=== PATIENT | female | born 1955 | race Caucasian/White ===

== ENCOUNTER 2016-11-28 08:49 | Inpatient (IN) | payer MEDICARE, MEDICAID ==
[2016-11-28] MEDS ORDERED: ceFAZolin 2 GM in Premix Bag 1 BAG IV ONE (10:30)
[2016-11-28] MEDS ORDERED: ceFAZolin 2 GM in Sodium Chloride 0.9% 50 ML IV ONE (10:30)
[2016-11-28] MEDS: Sodium Chloride 0.9% 1,000 ML IV SCH ×2 (10:38→23:46)
[2016-11-28] MEDS ORDERED: Albuterol/Ipratropium 3.0-0.5 MG/3 ML Neb Soln NEB ONE (10:49)
[2016-11-28] MEDS ORDERED: Ondansetron 4 MG/2 ML SDV ONE (10:50)
[2016-11-28] MEDS ORDERED: Rocuronium 50 MG/5 ML Vial ONE (10:50)
[2016-11-28] MEDS ORDERED: Propofol 200 MG/20 ML SDV ONE (10:50)
[2016-11-28] MEDS ORDERED: fentaNYL 250 MCG/5 ML SDV ONE (10:50)
[2016-11-28] MEDS ORDERED: Succinylcholine/Normal Saline 200 MG/10 ML Syringe ONE (10:50)
[2016-11-28] MEDS ORDERED: Dexamethasone 4 MG/ML SDV ONE (10:50)
[2016-11-28] MEDS ORDERED: Neostigmine Methylsulfate 1 MG/ML 5 ML Syringe ONE (10:50)
[2016-11-28] MEDS ORDERED: Bacitracin Oint 1 GM U/D Packet ONE (10:52)
[2016-11-28] MEDS ORDERED: Lidocaine 1% with EPINEPHrine 1:100,000 50 ML MDV ONE (10:52)
[2016-11-28] MEDS ORDERED: Mineral Oil 10 ML Bottle ONE ×2 (10:52→11:44)
[2016-11-28] MEDS ORDERED: Enoxaparin 40 MG/0.4 ML Syringe SUBCUT ONE (11:00)
[2016-11-28] MEDS ORDERED: Lactated Ringers 1,000 ML ONE (12:19)
[2016-11-28] MEDS ORDERED: Bacitracin Oint 28.35 GM Tube TOP ONE (12:30)
[2016-11-28] MEDS ORDERED: diphenhydrAMINE 50 MG/ML SDV IVPUSH PRN (13:13)
[2016-11-28] MEDS ORDERED: Docusate Sodium 100 MG Cap PO PRN (13:13)
[2016-11-28] MEDS ORDERED: Polyethylene Glycol 3350 Powder 17 GM Packet PO PRN (13:13)
[2016-11-28] MEDS ORDERED: Bisacodyl 5 MG Tab PO PRN (13:13)
[2016-11-28] MEDS ORDERED: Benzocaine/Cetylpyridinium/Menthol Lozenge MUCMEM PRN (13:13)
[2016-11-28] MEDS ORDERED: Acetaminophen 650 MG Supp RECTAL PRN (13:13)
[2016-11-28] MEDS ORDERED: Acetaminophen/oxyCODONE 325-10 MG Tab PO PRN (13:13)
[2016-11-28] MEDS ORDERED: ZALEPLON PO PRN (13:19)
[2016-11-28] MEDS ORDERED: Albuterol/Ipratropium 3.0-0.5 MG/3 ML Neb Soln INH PRN (13:19)
[2016-11-28] MEDS ORDERED: Fluticasone Propionate Nasal Spray 16 GM Bottle NASBOTH PRN (13:19)
[2016-11-28] MEDS ORDERED: Enoxaparin 80 MG/0.8 ML Syringe SUBCUT SCH (13:30)
[2016-11-28] MEDS: Acetaminophen/HYDROcodone 325-5 MG Tab PO PRN ×2 (15:55→23:36)
[2016-11-28] MEDS: Rivaroxaban 10 MG Tab PO SCH (16:00)
[2016-11-28] MEDS: tiZANidine 4 MG Tab PO PRN (17:12)
[2016-11-28] MEDS ORDERED: LOVASTATIN PO SCH (21:00)
[2016-11-28] MEDS: Zolpidem 5 MG Tab PO PRN (21:51)
[2016-11-28] MEDS: ClonazePAM 1 MG Tab PO PRN (23:36)
[2016-11-29] MEDS: Pantoprazole 40 MG Tab.CR PO SCH (07:12)
[2016-11-29] MEDS: Acetaminophen/HYDROcodone 325-5 MG Tab PO PRN ×3 (07:28→23:06)
[2016-11-29] MEDS: Venlafaxine 75 MG Cap.ER PO SCH (08:38)
[2016-11-29] MEDS ORDERED: Magnesium Sulfate/Water 2 GM in Premix Bag 1 BAG IV ONE (09:30)
[2016-11-29] MEDS: ClonazePAM 1 MG Tab PO PRN ×2 (12:24→23:07)
[2016-11-29] MEDS: Rivaroxaban 10 MG Tab PO SCH (17:29)
[2016-11-29] MEDS ORDERED: Ondansetron 4 MG/2 ML SDV IVPUSH PRN (19:51)
[2016-11-29] MEDS ORDERED: Ondansetron 4 MG Tab.DIS PO PRN (19:51)
[2016-11-29] MEDS ORDERED: Scopolamine 1.5 MG Transdermal Patch TRDERM PRN (19:52)
[2016-11-29] MEDS ORDERED: ClonazePAM 1 MG Tab ONE (23:01)
[2016-11-29] MEDS ORDERED: Acetaminophen/HYDROcodone 325-5 MG Tab ONE (23:01)
[2016-11-29] MEDS ORDERED: Zolpidem 5 MG Tab ONE (23:01)
[2016-11-29] MEDS: Zolpidem 5 MG Tab PO PRN (23:06)
[2016-11-30] MEDS: Pantoprazole 40 MG Tab.CR PO SCH (09:05)
[2016-11-30] MEDS: Venlafaxine 75 MG Cap.ER PO SCH (09:06)
[2016-11-30] MEDS: VERIFY SCOPOLAMINE PATCH TOP SCH (09:08)
--- NOTE | 2016-11-30 11:02 | PN ---
DATE OF SERVICE: 11/29/2016 SUBJECTIVE: The patient is doing well. Pain is well controlled. No nausea, vomiting, shortness of breath, or chest pain. OBJECTIVE: VITAL SIGNS: Temperature 97.2, blood pressure 117/64, pulse 60, respirations 18, 94% on room air. CARDIOVASCULAR: Regular rhythm and rate. RESPIRATORY: Lungs are clear to auscultation bilaterally. ABDOMEN: Bowel sounds are positive. Dressings are intact. Some drainage from the donor site. ASSESSMENT AND PLAN: We will change her donor site dressing. Work on diet and activity. Jhonatan Keyes MD /[id number]
--- NOTE | 2016-11-30 11:05 | PN ---
DATE OF SERVICE: 11/30/2016 SUBJECTIVE: The patient is doing well. Pain is well controlled. No nausea, vomiting, shortness of breath, or chest pain. She remains afebrile. OBJECTIVE: VITAL SIGNS: Stable. Temperature 97.2, blood pressure 117/64, pulse 60, respirations 18, 94% on room air. CARDIOVASCULAR: Regular rhythm and rate. RESPIRATORY: Lungs are clear to consultation bilaterally. SKIN: Dressings are intact. ASSESSMENT: Status post split-thickness skin graft. PLAN: Continue same plan. No evidence of complication at this time. Jhonatan Keyes MD /[id number]
[2016-11-30] MEDS ORDERED: diphenhydrAMINE 50 MG/ML SDV ONE (16:16)
[2016-11-30] MEDS ORDERED: ClonazePAM 1 MG Tab ONE ×2 (16:17→23:46)
[2016-11-30] MEDS: ClonazePAM 1 MG Tab PO PRN ×2 (16:22→23:52)
[2016-11-30] MEDS: diphenhydrAMINE 25 MG Cap PO PRN ×3 (16:35→23:53)
[2016-11-30] MEDS: Rivaroxaban 10 MG Tab PO SCH (16:35)
[2016-11-30] MEDS ORDERED: Acetaminophen/HYDROcodone 325-5 MG Tab ONE (17:58)
[2016-11-30] MEDS: Acetaminophen/HYDROcodone 325-5 MG Tab PO PRN ×2 (18:01→23:53)
[2016-11-30] MEDS ORDERED: Zolpidem 5 MG Tab ONE (23:46)
[2016-11-30] MEDS ORDERED: tiZANidine 4 MG Tab ONE (23:50)
[2016-11-30] MEDS: Zolpidem 5 MG Tab PO PRN (23:53)
[2016-11-30] MEDS: tiZANidine 4 MG Tab PO PRN (23:53)
[2016-12-01] MEDS: Pantoprazole 40 MG Tab.CR PO SCH (07:22)
[2016-12-01] MEDS: Venlafaxine 75 MG Cap.ER PO SCH (10:22)
[2016-12-01] MEDS: diphenhydrAMINE 25 MG Cap PO PRN (10:22)
[2016-12-01] MEDS: Acetaminophen/HYDROcodone 325-5 MG Tab PO PRN ×3 (10:22→19:57)
[2016-12-01] MEDS: VERIFY SCOPOLAMINE PATCH TOP SCH (10:24)
--- NOTE | 2016-12-01 13:37 | PN ---
DATE OF SERVICE: 12/01/2016 SUBJECTIVE: The patient is doing well today. Pain is well controlled. No nausea, vomiting, shortness of breath, or chest pain. OBJECTIVE: VITAL SIGNS: Temperature 96.6, blood pressure 121/74, pulse 70, respirations 16. CARDIOVASCULAR: Regular rhythm and rate. RESPIRATORY: Lungs are clear to auscultation bilaterally. ABDOMEN: In donor site, dressings are intact. No bleeding or concern. ASSESSMENT: Status post split-thickness skin graft. PLAN: We will remove her donor site dressing today and allow this area dry "crossed out" and also wears that on diet and activity. No signs of infection. No evidence of fever. She has been afebrile for greater than 24 hours. Jhonatan Keyes MD /[id number]
[2016-12-01] MEDS: ClonazePAM 1 MG Tab PO PRN ×2 (15:52→23:09)
[2016-12-01] MEDS: Rivaroxaban 10 MG Tab PO SCH (17:01)
[2016-12-01] MEDS: Acetaminophen 325 MG Tab PO PRN (21:12)
[2016-12-01] MEDS: tiZANidine 4 MG Tab PO PRN (23:09)
[2016-12-01] MEDS: traZODone 50 MG Tab PO PRN (23:09)
[2016-12-01] MEDS: Zolpidem 5 MG Tab PO PRN (23:09)
[2016-12-02] MEDS: Pantoprazole 40 MG Tab.CR PO SCH (07:57)
--- NOTE | 2016-12-02 08:57 | PN ---
DATE OF SERVICE: 12/02/2016 SUBJECTIVE: The patient is doing well today. Pain is well controlled. No nausea, vomiting, shortness of breath, or chest pain. OBJECTIVE: VITAL SIGNS: Stable. She is afebrile. CARDIOVASCULAR: Regular rhythm and rate. RESPIRATORY: Lungs are clear to consultation bilaterally. SKIN: Dressings are intact. The donor site has dressing, is healing well. ASSESSMENT: Status post split-thickness skin graft. PLAN: I will possibly change the dressing tomorrow. Continue same plan. Jhonatan Keyes MD /[id number]
[2016-12-02] MEDS: Venlafaxine 75 MG Cap.ER PO SCH (09:37)
[2016-12-02] MEDS: VERIFY SCOPOLAMINE PATCH TOP SCH (09:38)
--- NOTE | 2016-12-02 13:12 | OR ---
DATE OF PROCEDURE: 11/29/2016 PROCEDURE: 1. Surgical preparation of graft site, abdomen (209 cm2, 56513, 78520 x 2). 2. Split-thickness skin graft, abdomen (209.3 cm, 67579, 73624, x2). FINDINGS: Abdominal wound without infection, consistent with requirement for skin grafting. ANESTHESIA: MAC/local. INDICATIONS: This is a 61-year-old female with chronic abdominal wound requiring split- thickness skin grafting. Risks, benefits, alternatives, and limitations, including, but not limited to infection, bleeding, and requirement for graft failure due to the patient's smoking were explained to the patient, who wished to proceed. PREOPERATIVE DIAGNOSIS: Chronic wound requiring skin graft. POSTOPERATIVE DIAGNOSIS: Chronic wound requiring skin graft. PROCEDURE IN DETAIL: The patient was placed in supine position. The dressings were removed. The donor site was inspected. There was no evidence of infection. This was debrided using combination of 15 blade in a curette through its entirety. Minimal bleeding was controlled by electrocautery. Of note, no evidence of infection, fissure formation, or other abnormalities. This was then thoroughly irrigated. The donor site would be left thigh. This would be performed using approximately 15,000 split-thickness skin graft using the dermatome. Skin was then harvested by applying the dermatome at a 45 degree angle and harvesting approximately 15 cm x the widest guard, which was approximately 4 cm The donor site was then treated with lidocaine with epinephrine. The skin was carefully placed on a wet carrier and then meshed in a 3-1 fashion. This orientation was kept correctly the entire time. The mesh was placed onto the defect itself and was sutured with a combination of 5-0 fast absorbing chromic gut sutures. There were approximately 30 of these. This was then overlaid with Adaptic, covered in bacitracin. ABDs, 4x4s, and West straps along with abdominal binder to keep mesh adhesion. The donor site would then be treated with nonadherent dressings. The patient tolerated the procedure well. Jhonatan Keyes MD /[id number] CC: Padmini Guerrero MD
[2016-12-02] MEDS: ClonazePAM 1 MG Tab PO PRN ×2 (13:26→22:36)
[2016-12-02] MEDS: Acetaminophen 325 MG Tab PO PRN (13:26)
[2016-12-02] MEDS: Acetaminophen/HYDROcodone 325-5 MG Tab PO PRN ×2 (15:56→20:35)
[2016-12-02] MEDS: Rivaroxaban 10 MG Tab PO SCH (18:04)
[2016-12-02] MEDS: diphenhydrAMINE 25 MG Cap PO PRN (20:35)
[2016-12-02] MEDS: Zolpidem 5 MG Tab PO PRN (22:36)
[2016-12-02] MEDS: tiZANidine 4 MG Tab PO PRN (22:36)
[2016-12-02] MEDS: traZODone 50 MG Tab PO PRN (22:36)
[2016-12-03] MEDS: Pantoprazole 40 MG Tab.CR PO SCH (07:36)
[2016-12-03] MEDS: Acetaminophen/HYDROcodone 325-5 MG Tab PO PRN ×3 (07:41→21:14)
[2016-12-03] MEDS ORDERED: Bacitracin Oint 28.35 GM Tube TOP ONE (09:15)
--- NOTE | 2016-12-03 09:22 | PCM.PN ---
- General Info Functional Status: Reports: pain controlled - Review of Systems General: Reports: No Symptoms HEENT: Reports: no symptoms Pulmonary: Reports: no symptoms Cardiovascular: Reports: No Symptoms Gastrointestinal: Reports: No symptoms Genitourinary: Reports: no symptoms Musculoskeletal: Reports: no symptoms Skin: Reports: no symptoms Neurological: Reports: No Symptoms Psychiatric: Reports: no symptoms - Patient Data Vitals - most recent: Last Vital Signs Temp 98 F 12/03/16 08:05 Pulse 100 12/03/16 08:05 Resp 12 12/03/16 08:05 BP 126/87 12/03/16 08:05 Pulse Ox 95 12/03/16 08:05 Weight - most recent: 77.111 kg I&O - last 24 hours: Intake & Output 12/02/16 12/03/16 12/03/16 22:59 06:59 14:59 Intake Total 240 480 Output Total 500 200 250 Balance -260 280 -250 Med Orders - Current: Current Medications Acetaminophen (Tylenol) 650 mg RECTAL Q6H PRN PRN Reason: Pain (mild 1-3) Acetaminophen (Tylenol) 650 mg PO Q4H PRN PRN Reason: Pain Last Admin: 12/02/16 13:26 Dose: 650 mg Acetaminophen/Hydrocodone Bitart ([place] 325-5 Mg) 1 - 2 tab PO Q4H PRN PRN Reason: PAIN Last Admin: 12/03/16 07:41 Dose: 2 tab Albuterol/Ipratropium (Duoneb 3.0-0.5 Mg/3 Ml) 3 ml INH Q6H PRN PRN Reason: Wheezing Benzocaine/Menthol (Cepacol Sore Throat) 1 lozenge MUCMEM Q1H PRN PRN Reason: Sore Throat Bisacodyl (Dulcolax) 5 mg PO DAILY PRN PRN Reason: Constipation Clonazepam (Klonopin) 1 mg PO TID PRN PRN Reason: Anxiety Last Admin: 12/02/16 22:36 Dose: 1 mg Diphenhydramine HCl (Benadryl) 25 - 50 mg PO Q4H PRN PRN Reason: Itching Last Admin: 12/02/16 20:35 Dose: 50 mg Docusate Sodium (Colace) 100 mg PO BID PRN PRN Reason: Constipation Fluticasone Propionate (Flonase) 0 gm NASBOTH DAILY PRN PRN Reason: Allergies Lovastatin (Mevacor) 80 mg PO BEDTIME [facility] Last Admin: 12/02/16 20:36 Dose: 80 mg Verify Scopolamine (Patch) 0 each TOP DAILY [facility] Last Admin: 12/02/16 09:38 Dose: Not Given Ondansetron HCl (Zofran) 4 mg IVPUSH Q4H PRN PRN Reason: Nausea/Vomiting Ondansetron HCl (Zofran Odt) 4 mg PO Q4H PRN PRN Reason: Nausea/Vomiting Last Admin: 11/29/16 20:15 Dose: 4 mg Pantoprazole Sodium (Protonix) 40 mg PO ACBREAKFAST [facility] Last Admin: 12/03/16 07:36 Dose: 40 mg Polyethylene Glycol (Miralax) 17 gm PO DAILY PRN PRN Reason: Constipation Rivaroxaban (Xarelto) 20 mg PO QPM [facility] Last Admin: 12/02/16 18:04 Dose: 20 mg Scopolamine (Transderm-Scop) 1.5 mg TRDERM Q72H PRN PRN Reason: Nausea Last Admin: 11/29/16 20:15 Dose: 1.5 mg Senna/Docusate Sodium (Senna Plus) 1 tab PO BID PRN PRN Reason: Constipation Last Admin: 12/03/16 07:44 Dose: 1 tab Tizanidine HCl (Zanaflex) 4 mg PO Q8H PRN PRN Reason: Muscle Spasm Last Admin: 12/02/16 22:36 Dose: 4 mg Trazodone HCl (Trazodone) 50 - 150 mg PO BEDTIME PRN PRN Reason: Insomnia Last Admin: 12/02/16 22:36 Dose: 100 mg Venlafaxine HCl (Effexor Xr) 75 mg PO DAILY [facility] Last Admin: 12/02/16 09:37 Dose: 75 mg Zolpidem Tartrate (Ambien) 5 mg PO BEDTIME PRN PRN Reason: Insomnia Last Admin: 12/02/16 22:36 Dose: 5 mg Discontinued Medications Acetaminophen/Hydrocodone Bitart ([place] 325-5 Mg) 1 - 2 tab PO Q4H PRN PRN Reason: Pain Last Admin: 11/30/16 18:01 Dose: 1 tab Acetaminophen/Hydrocodone Bitart ([place] 325-5 Mg) Confirm Administered Dose 1 tab .ROUTE .STK-MED ONE Stop: 11/29/16 23:02 Last Admin: 11/29/16 23:08 Dose: Not Given Acetaminophen/Hydrocodone Bitart ([place] 325-5 Mg) Confirm Administered Dose 1 tab .ROUTE .STK-MED ONE Stop: 11/30/16 17:59 Last Admin: 11/30/16 18:03 Dose: Not Given Albuterol/Ipratropium (Duoneb 3.0-0.5 Mg/3 Ml) 3 ml NEB ONETIME ONE Stop: 11/28/16 10:50 Last Admin: 11/28/16 10:59 Dose: 3 ml Bacitracin (Bacitracin Oint 1 Gm) Confirm Administered Dose 5 dose .ROUTE .STK- MED ONE Stop: 11/28/16 10:53 Last Admin: 11/28/16 12:19 Dose: 5 dose Bacitracin (Bacitracin Oint) 0 gm TOP ONETIME ONE Stop: 11/28/16 12:31 Last Admin: 11/28/16 21:00 Dose: Not Given Bacitracin (Bacitracin Oint) 0 gm TOP ONETIME ONE Stop: 12/03/16 09:16 Clonazepam (Klonopin) Confirm Administered Dose 1 mg .ROUTE .STK-MED ONE Stop: 11/29/16 23:02 Last Admin: 11/29/16 23:08 Dose: Not Given Clonazepam (Klonopin) Confirm Administered Dose 1 mg .ROUTE .STK-MED ONE Stop: 11/30/16 16:18 Last Admin: 11/30/16 16:23 Dose: Not Given Clonazepam (Klonopin) Confirm Administered Dose 1 mg .ROUTE .STK-MED ONE Stop: 11/30/16 23:47 Last Admin: 11/30/16 23:52 Dose: Not Given Dexamethasone (Dexamethasone) Confirm Administered Dose 4 mg .ROUTE .STK-MED ONE Stop: 11/28/16 10:51 Diphenhydramine HCl (Benadryl) 50 mg IVPUSH Q4H PRN PRN Reason: Itching Diphenhydramine HCl (Benadryl) Confirm Administered Dose 50 mg .ROUTE .STK-MED ONE Stop: 11/30/16 16:17 Last Admin: 11/30/16 16:23 Dose: Not Given Enoxaparin Sodium (Lovenox) 40 mg SUBCUT ONETIME ONE Stop: 11/28/16 11:01 Last Admin: 11/28/16 11:06 Dose: 40 mg Enoxaparin Sodium (Lovenox) 80 mg SUBCUT Q12HR [facility] Fentanyl (Sublimaze) Confirm Administered Dose 500 mcg .ROUTE .STK-MED ONE Stop: 11/28/16 10:51 Glycopyrrolate () Confirm Administered Dose 1 mg .ROUTE .STK-MED ONE Stop: 11/28/16 10:51 Sodium Chloride (Normal Saline) 1,000 mls @ 75 mls/hr IV ASDIRECTED DELANEY Last Admin: 11/28/16 23:46 Dose: 75 mls/hr Cefazolin Sodium 2 gm/ Sodium (Chloride) 50 mls @ 100 mls/hr IV ASDIRECTED ONE Stop: 11/28/16 10:59 Last Admin: 11/28/16 11:24 Dose: 100 mls/hr Lactated Ringer's (Ringers, Lactated) Confirm Administered Dose 1,000 mls @ as directed .ROUTE .STK-MED ONE Stop: 11/28/16 12:20 Magnesium Sulfate 2 gm/ Premix 50 mls @ 25 mls/hr IV ONETIME ONE Stop: 11/29/16 11:29 Last Admin: 11/29/16 11:06 Dose: 25 mls/hr Lidocaine/Epinephrine (Xylocaine 1% With Epinephrine 1:100,000) Confirm Administered Dose 50 ml .ROUTE .STK-MED ONE Stop: 11/28/16 10:53 Last Admin: 11/28/16 12:15 Dose: 40 ml Mineral Oil (Muri-Lube) Confirm Administered Dose 20 ml .ROUTE .STK-MED ONE Stop: 11/28/16 10:53 Last Admin: 11/28/16 11:31 Dose: 20 ml Mineral Oil (Muri-Lube) Confirm Administered Dose 20 ml .ROUTE .STK-MED ONE Stop: 11/28/16 11:45 Last Admin: 11/28/16 11:31 Dose: 20 ml Neostigmine Methylsulfate (Neostigmine) Confirm Administered Dose 5 mg .ROUTE .STK-MED ONE Stop: 11/28/16 10:51 Non-Formulary Medication (Zaleplon [Sonata]) 5 - 10 mg PO BEDTIME PRN PRN Reason: Sleep Ondansetron HCl (Zofran) Confirm Administered Dose 4 mg .ROUTE .STK-MED ONE Stop: 11/28/16 10:51 Oxycodone/Acetaminophen (Percocet 325-10 Mg) 2 tab PO Q4H PRN PRN Reason: Pain (moderate 4-6) Propofol (Diprivan 20 Ml) Confirm Administered Dose 200 mg .ROUTE .STK-MED ONE Stop: 11/28/16 10:51 Rocuronium [place] (Zemuron) Confirm Administered Dose 50 mg .ROUTE .STK-MED ONE Stop: 11/28/16 10:51 Succinylcholine Chloride (Succinylcholine In Ns Pf) Confirm Administered Dose 200 mg .ROUTE .STK-MED ONE Stop: 11/28/16 10:51 Tizanidine HCl (Zanaflex) Confirm Administered Dose 4 mg .ROUTE .STK-MED ONE Stop: 11/30/16 23:51 Last Admin: 11/30/16 23:54 Dose: Not Given Zolpidem Tartrate (Ambien) Confirm Administered Dose 5 mg .ROUTE .STK-MED ONE Stop: 11/29/16 23:02 Last Admin: 11/29/16 23:07 Dose: Not Given Zolpidem Tartrate (Ambien) Confirm Administered Dose 5 mg .ROUTE .STK-MED ONE Stop: 11/30/16 23:47 Last Admin: 11/30/16 23:52 Dose: Not Given - Exam General: alert, oriented HEENT: Pupils equal, Pupils reactive, EOMI, Mucous membr. moist/pink Neck: supple Lungs: Clear to auscultation, Normal respiratory effort Cardiovascular: Regular Rate, Regular Rhythm Abdomen: bowel sounds present, soft, no tenderness, no distension (Female) Exam: Normal external exam, Normal speculum exam, Normal bimanual exam Back Exam: normal inspection, full range of motion Extremities: no edema Skin: warm, dry, intact Wound/Incisions: healing well Neurological: no new focal deficit Psy/Mental Status: alert, normal affect, normal mood - Problem List Review Problem List Initiated/Reviewed/Updated: Yes - My Orders Last 24 Hours: My Active Orders 12/03/16 09:20 Communication Order [RC] BID - Plan Plan:: Your skin graft is extremely fragile. It is very important that the graft not be disturbed (jostled,bumped, moved, or forceful nose blowing) for three weeks. During the first three or four weeks,the graft is developing its own blood supply. The new blood vessels are tiny and very fragile. If the graft is injured from friction, strenuous exercise or activity, or from changes in thebloodstream caused by smoking, it may not survive. - Do not use an icepack on the skin graft since it is very fragile. You may use one on the donor site. -The bandage placed on the skin graft at the time of surgery should be kept dry and intact for 1 week. Do not change the bandage during this time. After one week, you will return for a dressing change and post-op check of the skin graft. - During the first week, you may bathe instead of showering so that the bandage remains dry. Skin graft wound care (after first dressing change): - After you have had your one week post-op check and dressing change of the skin graft, you willbegin changing the dressing at home once per day. First wash your hands with soap and water. Then remove the bandage and gently clean the graft with gauze or Q-tips that have been moistenedwith soap and water. Use gentle blotting motions and avoid rubbing or friction on the graft. Donot use hydrogen peroxide on the graft for the first two weeks after the surgery. Blot the wounddry with clean gauze or Q- tips. -Once clean, apply a generous amount of petroleum jelly (Vaseline) or Aquaphor healingointment to a Band-aid or non-stick dressing then place it gently on the graft. Add a square ofgauze if there is drainage or oozing. Gently secure the dressing with tape. Do not let the wounddry out and scab over. It must stay moist with ointment and a dressing. -Do not allow adhesive from the tape to come into contact with the graft. This may pull the graft off. - It is not unusual to be able to see crusting underneath your bandage. Do not be alarmed if the graft becomes dark, crusty, purplish, or pink in color. -You may start to use hydrogen peroxide to help clean the graft after the graft has been on for at least two weeks. Use hydrogen peroxide ONLY if there is adherent crusting that is difficult toremove with soap and water. Otherwise continue to just use soap and water. - You will continue wound care once daily keeping the skin graft covered until the wound iscompletely healed over. This can sometimes take up to 4-5 weeks. - During this time, you may shower normally as long as the skin graft site is kept dry, covered andaway from direct water pressure.
[2016-12-03] MEDS: VERIFY SCOPOLAMINE PATCH TOP SCH (10:27)
[2016-12-03] MEDS: Venlafaxine 75 MG Cap.ER PO SCH (10:35)
[2016-12-03] MEDS: ClonazePAM 1 MG Tab PO PRN ×2 (10:42→19:23)
[2016-12-03] MEDS: Rivaroxaban 10 MG Tab PO SCH (16:52)
[2016-12-03] MEDS: traZODone 50 MG Tab PO PRN (23:03)
[2016-12-03] MEDS: Zolpidem 5 MG Tab PO PRN (23:04)
[2016-12-03] MEDS: tiZANidine 4 MG Tab PO PRN (23:04)
--- NOTE | 2016-12-04 08:57 | PN ---
DATE OF SERVICE: 12/04/2016 SUBJECTIVE: The patient is doing very well. Pain is well controlled. No nausea, vomiting, shortness of breath, or chest pain. OBJECTIVE: VITAL SIGNS: Stable. CARDIOVASCULAR: Regular rhythm and rate. RESPIRATORY: Lungs clear to auscultation bilaterally. SKIN: Dressings/wounds are healing well. No signs of cellulitis or infection. ASSESSMENT: Status post split-thickness skin graft. PLAN: The patient will be discharged today. Please see discharge summary for further details. Jhonatan Keyes MD /[id number]
--- NOTE | 2016-12-04 09:00 | DISCH ---
DISCHARGE DIAGNOSIS: Status post split-thickness skin graft, abdomen. HOSPITAL COURSE: This is a pleasant 61-year-old female, who underwent an uneventful split- thickness skin graft. On postoperative day #5, her skin graft dressings were changed. This appeared to have about 95% take of her graft. She continues to do well. Prior to discharge, her pain is well controlled. She had no nausea, vomiting, shortness of breath, or chest pain. She was tolerating diet and having bowel movements. FOLLOWUP: Follow up with Surgery in 7 to 14 days. ACTIVITY: No lifting greater than 30 pounds for the next 30 days. DISCHARGE MEDICATIONS: Please see MAR, but include [address] for pain. Written dressing instructions were sent to the longterm with the patient.
[2016-12-04] MEDS: Pantoprazole 40 MG Tab.CR PO SCH (09:07)
[2016-12-04] MEDS: Venlafaxine 75 MG Cap.ER PO SCH (09:07)
[2016-12-04 10:30] VITALS: BP 132/86
[2016-12-04] MEDS: Acetaminophen/HYDROcodone 325-5 MG Tab PO PRN (13:45)
== END 2016-12-04 13:45 | DRG 605 ==
LOC: JP.SDS 08:49 → JP.MS 13:13
PROVIDERS: ADMIT Surgery; ATTEND Surgery
DX: S31.109A Unspecified open wound of abdominal wall, unspecified quadrant without penetration into peritoneal cavity, initial encounter (principal); X58.XXXA Exposure to other specified factors, initial encounter; H54.8 Legal blindness, as defined in USA; Z87.898 Personal history of other specified conditions; Z93.2 Ileostomy status; Z90.49 Acquired absence of other specified parts of digestive tract; J44.9 Chronic obstructive pulmonary disease, unspecified; F32.9 Major depressive disorder, single episode, unspecified; K21.9 Gastro-esophageal reflux disease without esophagitis; Z86.711 Personal history of pulmonary embolism; Z79.01 Long term (current) use of anticoagulants; Z87.891 Personal history of nicotine dependence; Z88.5 Allergy status to narcotic agent; Z91.013 Allergy to seafood
CPT/HCPCS: 15002; 15003; 15100; 15101; A9270; C1762; J0690; J1100; J1650; J2405; J2704; J3010; J7040; J7050; J7120; J7620; 36415; 80048; 85025; J3475

== ENCOUNTER 2017-01-31 12:35 | Emergency (ER) | payer MEDICARE, MEDICAID ==
--- NOTE | 2017-01-31 13:32 | EDM.PDOC ---
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 This morning she developed some upper back and shoulder pain, worse with breathing. She's been coughing was a small amount of productive sputum. Short of breath but nothing more than usual. No fevers or chills. Denies nausea or vomiting. No diaphoresis. Onset: Sudden Duration: Other (Pain has been ongoing for the past 2 hours, only when she takes a breath or moves) Location: Reports: Chest, Back Quality: Reports: Ache, Pressure Severity: Moderate Associated Symptoms: Reports: Chest Pain, Cough, Shortness of Breath. Denies: Diaphoresis, Fever/Chills, Nausea/Vomiting - Related Data Allergies Allergy/AdvReac Type Severity Reaction Status Date / Time shellfish derived Allergy Severe Anaphylactic Verified 11/28/16 10:55 Shock oxycodone HCl Allergy Hives Verified 11/26/16 08:06 [From OxyContin] Home Meds: Home Meds Lovastatin 80 tab PO BEDTIME 05/21/14 [History] Omeprazole 40 mg PO DAILY 10/28/14 [History] Venlafaxine [Effexor XR] 75 mg PO DAILY 06/26/15 [History] Fluticasone Propionate [Flonase] 2 spray NS DAILY PRN 03/06/16 [History] Zaleplon [Sonata] 5 - 10 mg PO BEDTIME PRN 03/06/16 [History] tiZANidine [Zanaflex] 4 mg PO Q8HR PRN 07/03/16 [History] traZODone 50 - 150 mg PO BEDTIME PRN 07/03/16 [History] ClonazePAM [KlonoPIN] 1 mg PO TID PRN 07/23/16 [History] Rivaroxaban [Xarelto] 20 mg PO DAILY 11/19/16 [History] Enoxaparin [Lovenox] 80 mg SQ Q12HR 11/28/16 [History] Ipratropium/Albuterol Sulfate [Combivent Respimat Inhal [place]] 2 puff INH Q6HR PRN 11/28/16 [History] Past Medical History HEENT History: Reports: Impaired Vision Other HEENT History: wears glasses Cardiovascular History: Reports: Blood Clots/VTE/DVT, High Cholesterol, Hypertension, SOB on Exertion, Syncope Respiratory History: Reports: COPD, PE, Pneumonia, Recurrent, SOB Gastrointestinal History: Reports: Chronic Diarrhea, Diverticulosis, GERD, Other (See Below) Other Gastrointestinal History: Diverticulitis, ischemic bowel; dysphagia Genitourinary History: Reports: None 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, Other OB/BYN History: hysterectomy and c-sections X3 Musculoskeletal History: Reports: Back Pain, Chronic, RA Other Musculoskeletal History: DJD Neurological History: Reports: Concussion, Migraines, Vertigo Psychiatric History: Reports: Anxiety, Depression Endocrine/Metabolic History: Reports: Vitamin D Deficiency Hematologic History: Reports: Anticoagulation Therapy, Other (See Below) Other Hematologic History: parasitic toxoplasmosis Immunologic History: Reports: Immunosuppression, Other (See Below) Other Immunologic History: " Not very good" Immune system Dermatologic History: Reports: Eczema, Seborrheic Dermatitis Other Dermatologic History: tattoos on both arms - Infectious Disease History Infectious Disease History: Reports: Chicken Pox, Hepatitis B, Measles, Rubella Other Infectious Disease History: unable to obtain - Past Surgical History HEENT Surgical History: Reports: Naso-Sinus Surgery GI Surgical History: Reports: Appendectomy, Cholecystectomy, Colon, Colonoscopy , Colostomy, EGD, Hernia, Abdominal, Other (See Below) Female Surgical History: Reports: Breast Biopsy, Section, Hysterectomy, Salpingo-Oophorectomy Musculoskeletal Surgical History: Reports: Shoulder Replacement Social & Family History - Family History Cardiac: Reports: Heart Failure Neurological: Reports: CVA Endocrine/Metabolic: Reports: Hypothyroidism Dermatologic: Reports: Eczema - Tobacco Use Smoking Status *Q: Former Smoker Years of Tobacco use: 30 Packs/Tins Daily: 0.2 Used Tobacco, but Quit: Yes Month Tobacco Last Used: 2015 Second Hand Smoke Exposure: No - Caffeine Use Caffeine Use: Reports: Coffee - Alcohol Use Days Per Week of Alcohol Use: 0 - Recreational Drug Use Recreational Drug Use: No Drug Use in Last 12 Months: No ED ROS GENERAL - Review of Systems Review Of Systems: See Below Constitutional: Denies: Fever, Chills, Malaise HEENT: Reports: No Symptoms Respiratory: Reports: Shortness of Breath, Cough, Sputum Cardiovascular: Reports: Chest Pain GI/Abdominal: Denies: Abdominal Pain, Nausea, Vomiting Musculoskeletal: Reports: No Symptoms Skin: Reports: Other (Bilateral shoulder and back discomfort) Neurological: Denies: Headache Psychiatric: Reports: Anxiety, Other (Under significant stress right now) ED EXAM, GENERAL - Physical Exam Exam: See Below Exam Limited By: No Limitations General Appearance: Alert, Anxious Eye Exam: Bilateral Eye: EOMI Neck: Normal Inspection Respiratory/Chest: No Respiratory Distress, Lungs Clear, Other (Pain could not be reproduced by palpation of chest wall) Cardiovascular: Regular Rate, Rhythm GI/Abdominal: Normal Bowel Sounds, Soft, Tender (She is tender around her recent skin graft in the mid abdomen, there is a colostomy bag in the right lower quadrant) Neurological: Alert, Oriented Skin Exam: Warm, Dry Course - Vital Signs Last Recorded V/S: Last Vital Signs Temp 97.4 F 01/31/17 15:47 Pulse 85 01/31/17 15:47 Resp 14 01/31/17 15:47 BP 136/87 01/31/17 15:47 Pulse Ox 96 01/31/17 15:47 - Orders/Labs/Meds Orders: Active Orders 24 hr Category Date Time Status EKG Documentation Completion [RC] ASDIRECTED Care 01/31/17 13:08 Active EKG 12 Lead [EK] Routine Ther 01/31/17 13:07 Ordered Labs: Laboratory Tests 01/31/17 01/31/17 01/31/17 Range/Units 13:21 13:21 14:01 WBC 9.6 (4.5-11.0) K/uL RBC 4.30 (3.30-5.50) M/uL Hgb 10.6 L (12.0-15.0) g/dL Hct 33.1 L (36.0-48.0) % MCV 77 L (80-98) fL MCH 25 L (27-31) pg MCHC 32 (32-36) % Plt Count 512 H (150-400) K/uL Neut % (Auto) 66 (36-66) % Lymph % (Auto) 27 (24-44) % [place] % (Auto) 5 (2-6) % Eos % (Auto) 2 (2-4) % Baso % (Auto) 1 (0-1) % Sodium 139 L (140-148) mmol/L Potassium 4.2 (3.6-5.2) mmol/L Chloride 105 (100-108) mmol/L Carbon Dioxide 22 (21-32) mmol/L Anion Gap 16.2 H (5.0-14.0) mmol/L BUN 9 (7-18) mg/dL Creatinine 0.8 (0.6-1.0) mg/dL Est Cr Clr Drug Dosing TNP Estimated GFR (MDRD) > 60 (>60) Glucose 106 (74-106) mg/dL Calcium 8.7 (8.5-10.1) mg/dL Total Bilirubin 0.2 (0.2-1.0) mg/dL AST 19 (15-37) U/L ALT 18 (12-78) U/L Alkaline Phosphatase 170 H (46-116) U/L Troponin I < 0.017 (0.000-0.056) ng/mL Total Protein 7.0 (6.4-8.2) g/dL Albumin 3.2 L (3.4-5.0) g/dL Globulin 3.8 H (2.3-3.5) g/dL Albumin/Globulin Ratio 0.8 L (1.2-2.2) Urine Color Yellow Urine Appearance Clear Urine pH 7.0 (4.5-8.0) Ur Specific [place] 1.010 (1.008-1.030) Urine Protein Negative (NEGATIVE) mg/dL Urine Glucose (UA) Normal (NEGATIVE) mg/dL Urine Ketones Negative (NEGATIVE) mg/dL Urine Occult Blood Negative (NEGATIVE) Urine Nitrite Negative (NEGATIVE) Urine Bilirubin Negative (NEGATIVE) Urine Urobilinogen Normal (NORMAL) mg/dL Ur Leukocyte Esterase Negative (NEGATIVE) Urine RBC Not seen (0-5) Urine WBC 0-5 (0-5) Ur Epithelial Cells Rare Amorphous Sediment Not seen Urine Bacteria Not seen Urine Mucus Not seen Meds: Medications Discontinued Medications Generic Name Dose Route Start Last Admin Trade Name Freq PRN Reason Stop Dose Admin Aspirin 324 mg 01/31/17 15:54 01/31/17 12:42 Aspirin PO 01/31/17 15:55 324 mg ONETIME ONE Administration - Re-Assessments/Exams Free Text/Narrative Re-Assessment/Exam: 01/31/17 13:35 Initially 4 low dose aspirin were given and an EKG was done. EKG was normal. One view chest x-ray was normal. CBC, CMP, troponin were obtained as well as a UA. 01/31/17 13:37 CBC shows a normal white count and improving hemoglobin from levels 2 months ago. 01/31/17 14:42 Chemistry profile including troponin was also reassuring, troponin was 0. Patient was encouraged to take anti-inflammatories for the next 24-48 hours to cover likely pleurisy or musculoskeletal discomfort. She can return if worsening. Departure - Departure Time of Disposition: 15:51 Disposition: Home, Self-Care 01 Condition: good Clinical Impression: Pleurisy, Atypical chest pain - Discharge Information Instructions: Nonspecific Chest Pain, Mild-ca-Gqqb Referrals: PCP,None [Primary Care Provider] - Forms: ED Department Discharge Care Plan Goals: Try a regular dose of ibuprofen or naproxen for the next 48 hours. Continue your other regular medications and increase activity as tolerated. Return any time if worsening or concerns. - My Orders Last 24 Hours: My Active Orders 01/31/17 13:07 EKG 12 Lead [EK] Routine 01/31/17 13:08 EKG Documentation Completion [RC] ASDIRECTED - Assessment/Plan Last 24 Hours: My Active Orders 01/31/17 13:07 EKG 12 Lead [EK] Routine 01/31/17 13:08 EKG Documentation Completion [RC] ASDIRECTED
--- NOTE | 2017-01-31 14:06 | CR ---
Chest 1V Frontal HISTORY: short of breath, chest pain COMPARISON: 10/18/2015 FINDINGS: Lungs appear clear and normally aerated. Cardiomediastinal silhouette is within normal limits for th e AP technique. No vascular redistribution or pleural fluid can be seen. Reverse left shoulder arthr oplasty is redemonstrated.. IMPRESSION: No acute chest abnormality or significant interval change compared with 10/18/2015.
[2017-01-31 15:50] VITALS: BP 136/87
[2017-01-31] MEDS ORDERED: Aspirin 81 MG Tab.Chew PO ONE (15:54)
== END 2017-01-31 15:51 | disposition home or self-care (01) ==
LOC: JP.ED 12:35
DX: R09.1 Pleurisy (principal); R07.89 Other chest pain; E78.00 Pure hypercholesterolemia, unspecified; I10 Essential (primary) hypertension; J44.9 Chronic obstructive pulmonary disease, unspecified; K21.9 Gastro-esophageal reflux disease without esophagitis; F41.9 Anxiety disorder, unspecified; F32.9 Major depressive disorder, single episode, unspecified; G43.909 Migraine, unspecified, not intractable, without status migrainosus; Z87.01 Personal history of pneumonia (recurrent); Z88.5 Allergy status to narcotic agent; Z91.013 Allergy to seafood; Z79.899 Other long term (current) drug therapy; Z79.01 Long term (current) use of anticoagulants; Z90.49 Acquired absence of other specified parts of digestive tract; Z90.710 Acquired absence of both cervix and uterus; Z87.891 Personal history of nicotine dependence
CPT/HCPCS: 36415; 71010; 80053; 81001; 84484; 85025; 93005; 99285; A9270; 93010; 99284

== ENCOUNTER 2017-05-20 13:05 | Emergency (ER) | payer MEDICARE, MEDICAID ==
[2017-05-20] MEDS ORDERED: Aspirin 81 MG Tab.Chew PO ONE (14:19)
--- NOTE | 2017-05-20 14:21 | EDM.PDOC ---
ED HPI GENERAL MEDICAL PROBLEM - General Chief Complaint: Cardiovascular Problem Stated Complaint: HIGH BP 252/135, HEART RATE 124 Time Seen by Provider: 05/20/17 14:04 Source of Information: Reports: Patient, Family, RN Notes Reviewed History Limitations: Reports: No Limitations - History of Present Illness INITIAL COMMENTS - FREE TEXT/NARRATIVE: 61-year-old female presents emergency department today with complaint of chest pain and elevated blood pressures, she is using a wrist monitor systolic blood pressure of 255 diastolic 155 she states she's having chest pain and pressure with shortness of breath diaphoresis no nausea it has been going on for the last couple of hours. She also complains of palpitations and dizziness Bilateral Chest Pain Score (Numeric/FACES): 6 - Related Data Allergies Allergy/AdvReac Type Severity Reaction Status Date / Time shellfish derived Allergy Severe Anaphylactic Verified 11/28/16 10:55 Shock oxycodone HCl Allergy Hives Verified 11/26/16 08:06 [From OxyContin] Home Meds: Home Meds Lovastatin 80 tab PO BEDTIME 05/21/14 [History] Omeprazole 40 mg PO DAILY 10/28/14 [History] Venlafaxine [Effexor XR] 75 mg PO DAILY 06/26/15 [History] Fluticasone Propionate [Flonase] 2 spray NS DAILY PRN 03/06/16 [History] traZODone 100 mg PO BEDTIME PRN 07/03/16 [History] ClonazePAM [KlonoPIN] 1 mg PO TID PRN 07/23/16 [History] Rivaroxaban [Xarelto] 20 mg PO DAILY 11/19/16 [History] Ipratropium/Albuterol Sulfate [Combivent Respimat Inhal [place]] 2 puff INH Q6HR PRN 11/28/16 [History] Baclofen 10 mg PO TID 05/20/17 [History] Ferrous Sulfate 325 mg PO BID 05/20/17 [History] Midodrine 10 mg PO TID 05/20/17 [History] Zolpidem [Ambien] 5 mg PO BEDTIME 05/20/17 [History] Past Medical History HEENT History: Reports: Impaired Vision Other HEENT History: wears glasses Cardiovascular History: Reports: Blood Clots/VTE/DVT, High Cholesterol, Hypertension, SOB on Exertion, Syncope Respiratory History: Reports: COPD, PE, Pneumonia, Recurrent, SOB Gastrointestinal History: Reports: Chronic Diarrhea, Diverticulosis, GERD, Other (See Below) Other Gastrointestinal History: Diverticulitis, ischemic bowel; dysphagia 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, Other OB/BYN History: hysterectomy and c-sections X3 Musculoskeletal History: Reports: Back Pain, Chronic, RA Other Musculoskeletal History: DJD Neurological History: Reports: Concussion, Migraines, Vertigo Psychiatric History: Reports: Anxiety, Depression Endocrine/Metabolic History: Reports: Vitamin D Deficiency Hematologic History: Reports: Anticoagulation Therapy, Other (See Below) Other Hematologic History: parasitic toxoplasmosis Immunologic History: Reports: Immunosuppression, Other (See Below) Other Immunologic History: " Not very good" Immune system Dermatologic History: Reports: Eczema, Seborrheic Dermatitis Other Dermatologic History: tattoos on both arms - Infectious Disease History Infectious Disease History: Reports: Chicken Pox, Hepatitis B, Measles, Rubella Other Infectious Disease History: unable to obtain - Past Surgical History HEENT Surgical History: Reports: Naso-Sinus Surgery GI Surgical History: Reports: Appendectomy, Cholecystectomy, Colon, Colonoscopy , Colostomy, EGD, Hernia, Abdominal, Other (See Below) Female Surgical History: Reports: Breast Biopsy, Section, Hysterectomy, Salpingo-Oophorectomy Musculoskeletal Surgical History: Reports: Shoulder Replacement Social & Family History - Family History Cardiac: Reports: Heart Failure Neurological: Reports: CVA Endocrine/Metabolic: Reports: Hypothyroidism Dermatologic: Reports: Eczema - Tobacco Use Smoking Status *Q: Never Smoker Years of Tobacco use: 30 Packs/Tins Daily: 0.2 Used Tobacco, but Quit: Yes Month Tobacco Last Used: 2015 Second Hand Smoke Exposure: No - Caffeine Use Caffeine Use: Reports: Coffee - Alcohol Use Days Per Week of Alcohol Use: 0 - Recreational Drug Use Recreational Drug Use: No Drug Use in Last 12 Months: No ED ROS GENERAL - Review of Systems Review Of Systems: See Below Constitutional: Reports: Diaphoresis HEENT: Reports: No Symptoms Respiratory: Reports: Shortness of Breath Cardiovascular: Reports: Chest Pain, Dyspnea on Exertion, Palpitations GI/Abdominal: Reports: No Symptoms : Reports: No Symptoms Musculoskeletal: Reports: No Symptoms Skin: Reports: No Symptoms Neurological: Reports: Dizziness ED EXAM, GENERAL - Physical Exam Exam: See Below Free Text/Narrative:: General: Female, not in any distress, alert and oriented x3 HEENT: head is atraumatic normocephalic, eyes pupils equal round reactive to light, sclera clear no conjunctivitis appreciated. Ears tympanic membranes clear and maoyrga landmarks and light reflex are present bilaterally canals are clear. Nose no septal deviation, nares are clear, no blood present. Mouth mucosa is moist and pink no erythema or exudate noted in soft palate, tongue is midline uvula is midline, dentition is intact. Neck: Supple no thyromegaly no tracheal deviation. Nodes: Cervical nodes subclavicular nodes nontender no palpable lymphadenopathy noted. Lungs: clear to auscultation bilaterally with symmetrical respirations, no adventitious noise appreciated. CV: Regular rate and rhythm S1 and S2 appreciated no murmurs rubs or gallops noted. Abdomen: Soft, nontender, no palpable masses or organomegaly appreciated, no distention no guarding bowel sounds are present, . Neuro: Cranial nerves II through XII grossly intact Skin: Warm and dry, intact Extremities: No lower extremity edema appreciated, pedal pulse is +2. Course - Vital Signs Last Recorded V/S: Last Vital Signs Temp 95.7 F 05/20/17 13:39 Pulse 83 05/20/17 16:42 Resp 16 05/20/17 16:42 BP 108/63 05/20/17 16:42 Pulse Ox 99 05/20/17 16:42 - Orders/Labs/Meds Orders: Active Orders 24 hr Category Date Time Status Cardiac Monitoring [RC] .As Directed Care 05/20/17 14:19 Active EKG Documentation Completion [RC] ASDIRECTED Care 05/20/17 14:20 Active EKG 12 Lead [EK] Stat Ther 05/20/17 14:20 Ordered Labs: Laboratory Tests 05/20/17 05/20/17 05/20/17 Range/Units 14:19 14:19 15:13 WBC 10.6 (4.5-11.0) K/uL RBC 4.62 (3.30-5.50) M/uL Hgb 12.8 D (12.0-15.0) g/dL Hct 38.1 (36.0-48.0) % MCV 83 (80-98) fL MCH 28 (27-31) pg MCHC 34 (32-36) % Plt Count 353 (150-400) K/uL Neut % (Auto) 68 H (36-66) % Lymph % (Auto) 22 L (24-44) % [place] % (Auto) 5 (2-6) % Eos % (Auto) 3 (2-4) % Baso % (Auto) 2 H (0-1) % Sodium 140 (140-148) mmol/L Potassium 4.2 (3.6-5.2) mmol/L Chloride 104 (100-108) mmol/L Carbon Dioxide 27 (21-32) mmol/L Anion Gap 8.9 (5.0-14.0) mmol/L BUN 12 (7-18) mg/dL Creatinine 1.0 (0.6-1.0) mg/dL Est Cr Clr Drug Dosing 53.83 mL/min Estimated GFR (MDRD) 57 L (>60) BUN/Creatinine Ratio Not Reportable Glucose 134 H (74-106) mg/dL Calcium 9.2 (8.5-10.1) mg/dL Total Bilirubin 0.2 (0.2-1.0) mg/dL AST 18 (15-37) U/L ALT 29 (12-78) U/L Alkaline Phosphatase 145 H (46-116) U/L CK-MB (CK-2) 2.1 (0-3.6) mg/mL Troponin I < 0.017 (0.000-0.056) ng/mL Total Protein 6.8 (6.4-8.2) g/dL Albumin 3.0 L (3.4-5.0) g/dL Globulin 3.8 H (2.3-3.5) g/dL Albumin/Globulin Ratio 0.8 L (1.2-2.2) Urine Color Yellow Urine Appearance Clear Urine pH 6.5 (4.5-8.0) Ur Specific [place] 1.015 (1.008-1.030) Urine Protein Negative (NEGATIVE) mg/dL Urine Glucose (UA) Normal (NEGATIVE) mg/dL Urine Ketones Negative (NEGATIVE) mg/dL Urine Occult Blood Negative (NEGATIVE) Urine Nitrite Negative (NEGATIVE) Urine Bilirubin Negative (NEGATIVE) Urine Urobilinogen Normal (NORMAL) mg/dL Ur Leukocyte Esterase Negative (NEGATIVE) Urine RBC 0-5 (0-5) Urine WBC 0-5 (0-5) Ur Epithelial Cells Few Amorphous Sediment Few Urine Bacteria Rare Urine Mucus Few Meds: Medications Discontinued Medications Generic Name Dose Route Start Last Admin Trade Name Gely PRN Reason Stop Dose Admin Acetaminophen 650 mg 05/20/17 15:34 05/20/17 15:47 Tylenol PO 05/20/17 15:35 650 mg NOW ONE Administration Aspirin 324 mg 05/20/17 14:19 05/20/17 14:29 Aspirin PO 05/20/17 14:20 324 mg ONETIME ONE Administration Lorazepam 1 mg 05/20/17 16:32 05/20/17 16:40 Ativan PO 05/20/17 16:33 1 mg ONETIME ONE Administration Meclizine HCl 25 mg 05/20/17 15:49 05/20/17 15:58 Antivert PO 05/20/17 15:50 25 mg ONETIME ONE Administration Departure - Departure Time of Disposition: 17:18 Disposition: Home, Self-Care 01 Condition: Good Clinical Impression: Labile hypertension Referrals: Yue Plaacios MD [Primary Care Provider] - Forms: ED Department Discharge Additional Instructions: Use Ativan as needed to help control dizziness symptoms, Please followup with your primary care provider in 3-5 days if not better, please call return to the emergency department with worsening of symptoms. - My Orders Last 24 Hours: My Active Orders 05/20/17 14:19 Cardiac Monitoring [RC] .As Directed 05/20/17 14:20 EKG Documentation Completion [RC] ASDIRECTED EKG 12 Lead [EK] Stat - Assessment/Plan Last 24 Hours: My Active Orders 05/20/17 14:19 Cardiac Monitoring [RC] .As Directed 05/20/17 14:20 EKG Documentation Completion [RC] ASDIRECTED EKG 12 Lead [EK] Stat Plan: Assessment Acuity = acute Site and laterality = fluctuating blood pressure, diaphoresis and headache Etiology = unclear etiology Manifestations = none Location of injury = Home Lab values = CBC, CMP, troponin, EKG, chest x-ray all within normal limits Plan I did review lab work with her chest x-ray and EKG talked to her about further evaluation for such things as a pheochromocytoma which I recommend she follow- up with her primary care, also complained of dizziness she had good relief with Ativan provided prescription written for 1 tab by mouth 3 times a day when necessary Patient was in agreement with the plan all questions were answered, they were instructed to return to the emergency department or call for worsening symptoms. This note was dictated using [employer] voice recognition software please call with any questions.
--- NOTE | 2017-05-20 14:50 | CR ---
Chest 2V HISTORY: Pain. COMPARISON: 01/29/2017. FINDINGS: Slightly rotated film. No focal infiltrates or effusions no acute congestive change.
[2017-05-20] MEDS ORDERED: Acetaminophen 325 MG Tab PO ONE (15:34)
[2017-05-20] MEDS ORDERED: Meclizine 25 MG Tab PO ONE (15:49)
[2017-05-20] MEDS ORDERED: LORazepam 1 MG Tab PO ONE (16:32)
[2017-05-20 16:42] VITALS: BP 108/63
== END 2017-05-20 17:56 | disposition home or self-care (01) ==
LOC: JP.ED 13:05
DX: I10 Essential (primary) hypertension (principal); R61 Generalized hyperhidrosis; R51 Headache; E03.9 Hypothyroidism, unspecified; E78.00 Pure hypercholesterolemia, unspecified; J44.9 Chronic obstructive pulmonary disease, unspecified; K21.9 Gastro-esophageal reflux disease without esophagitis; M06.9 Rheumatoid arthritis, unspecified; Z86.711 Personal history of pulmonary embolism; Z86.718 Personal history of other venous thrombosis and embolism; Z90.49 Acquired absence of other specified parts of digestive tract; Z90.710 Acquired absence of both cervix and uterus; Z90.721 Acquired absence of ovaries, unilateral; Z96.619 Presence of unspecified artificial shoulder joint; Z98.890 Other specified postprocedural states; Z79.899 Other long term (current) drug therapy; Z88.5 Allergy status to narcotic agent; Z91.013 Allergy to seafood
CPT/HCPCS: 36415; 71020; 80053; 81001; 82553; 84484; 85025; 93005; 99284; A9270; 93010

== ENCOUNTER 2017-07-17 07:30 | Inpatient (IN) | payer MEDICARE, MEDICAID ==
[2017-07-25] MEDS ORDERED: ceFAZolin 2 GM in Sodium Chloride 0.9% 50 ML IV ONE (07:00)
[2017-07-25] MEDS ORDERED: ceFAZolin 2 GM in Premix Bag 1 BAG IV ONE (07:00)
[2017-07-25] MEDS ORDERED: metroNIDAZOLE/Normal Saline 500 MG in Premix Bag 1 BAG IV ONE (07:00)
[2017-07-25] MEDS: Sodium Chloride 0.9% 1,000 ML IV SCH ×2 (07:04→14:41)
[2017-07-25] MEDS ORDERED: fentaNYL 250 MCG/5 ML SDV ONE (07:17)
[2017-07-25] MEDS ORDERED: Rocuronium 50 MG/5 ML Vial ONE (07:17)
[2017-07-25] MEDS ORDERED: Dexamethasone 4 MG/ML SDV ONE (07:17)
[2017-07-25] MEDS ORDERED: Propofol 200 MG/20 ML SDV ONE (07:17)
[2017-07-25] MEDS ORDERED: Neostigmine Methylsulfate 1 MG/ML 5 ML Syringe ONE (07:17)
[2017-07-25] MEDS ORDERED: Succinylcholine 200 MG/10 ML MDV ONE (07:17)
[2017-07-25] MEDS ORDERED: Ondansetron 4 MG/2 ML SDV ONE (07:17)
[2017-07-25] MEDS ORDERED: Glycopyrrolate 0.2 MG/ML 5 ML MDV ONE (07:17)
[2017-07-25] MEDS ORDERED: Naloxone 0.4 MG/ML SDV IVPUSH PRN (08:16)
[2017-07-25] MEDS ORDERED: Lactated Ringers 1,000 ML ONE (09:54)
[2017-07-25] MEDS ORDERED: Meropenem 500 MG SDV ONE (11:04)
[2017-07-25] MEDS ORDERED: Promethazine 25 MG/ML SDV IM PRN (12:30)
[2017-07-25] MEDS ORDERED: Bisacodyl 5 MG Tab PO PRN (12:30)
[2017-07-25] MEDS ORDERED: hydrOXYzine HCl 100 MG/2 ML SDV IM PRN (12:30)
[2017-07-25] MEDS ORDERED: diphenhydrAMINE 50 MG/ML SDV IVPUSH PRN ×3 (12:30→14:53)
[2017-07-25] MEDS ORDERED: Benzocaine/Cetylpyridinium/Menthol Lozenge MUCMEM PRN (12:30)
[2017-07-25] MEDS ORDERED: Docusate Sodium 100 MG Cap PO PRN (12:30)
[2017-07-25] MEDS ORDERED: Acetaminophen 1,000 MG in Premix Bag 1 BAG IV PRN (12:30)
[2017-07-25] MEDS ORDERED: Scopolamine 1.5 MG Transdermal Patch TOP SCH (12:45)
[2017-07-25] MEDS ORDERED: Naloxone 0.4 MG/ML SDV IV PRN (14:53)
[2017-07-25] MEDS: fentaNYL 2,500 MCG in Sodium Chloride 0.9% 200 ML EPIDUR SCH (14:56)
[2017-07-25] MEDS: VERIFY SCOP PATCH TOP SCH (16:37)
[2017-07-26] MEDS: fentaNYL 2,500 MCG in Sodium Chloride 0.9% 200 ML EPIDUR SCH (04:05)
[2017-07-26] MEDS: Sodium Chloride 0.9% 1,000 ML IV SCH ×2 (04:43→17:24)
[2017-07-26] MEDS ORDERED: Fluticasone Propionate Nasal Spray 16 GM Bottle NASBOTH PRN (09:32)
[2017-07-26] MEDS ORDERED: Diazepam 5 MG Tab PO PRN (09:32)
[2017-07-26] MEDS ORDERED: tiZANidine 4 MG Tab PO PRN (09:32)
[2017-07-26] MEDS ORDERED: traZODone 50 MG Tab PO PRN (09:32)
[2017-07-26] MEDS ORDERED: Albuterol/Ipratropium 3.0-0.5 MG/3 ML Neb Soln NEB PRN ×2 (09:32→19:36)
[2017-07-26] MEDS ORDERED: Aspirin 81 MG Tab.EC PO SCH (10:00)
[2017-07-26] MEDS ORDERED: DULoxetine 30 MG Cap PO SCH (10:00)
[2017-07-26] MEDS ORDERED: Pantoprazole 40 MG Tab.CR PO SCH (10:00)
[2017-07-26] MEDS ORDERED: Fludrocortisone 0.1 MG Tab PO SCH (10:00)
[2017-07-26] MEDS ORDERED: Bisacodyl 5 MG Tab PO SCH (10:30)
[2017-07-26] MEDS: VERIFY SCOP PATCH TOP SCH (10:50)
--- NOTE | 2017-07-26 10:59 | PN ---
DATE OF SERVICE: 07/26/2017 SUBJECTIVE: The patient is doing well. Pain is controlled with an epidural. She is mildly somnolent with this. The patient is also complaining of some itching. No nausea, vomiting, shortness of breath, or chest pain. OBJECTIVE: VITAL SIGNS: Stable. Temperature 99.3, blood pressure 121/64, pulse is reported to be 120, but on exam is 89, respirations 16, 94% on 2 L. CARDIOVASCULAR: Regular rhythm and rate. RESPIRATORY: Lungs clear to consultation bilaterally. ABDOMEN: The skin graft site shows viability. However, there is a dusky tone to this and need to be observed. LABORATORY RESULTS: Show a fairly normal results. ASSESSMENT AND PLAN: 1. Gastrointestinal activity. The patient is not passing any gas. We will keep her on clear liquids today. She is a fast track surgical candidate. However, this will require an extensive lysis of adhesions and abdominal surgery. Therefore, we will continue to advance her slow but try to keep as close to the fast track protocol as possible. 2. Hematology. Her hemoglobin is 13.2. She is not having active bleeding at this time and we will recheck this on a p.r.n. basis. 3. Infectious control. She is afebrile, however, white blood cell count is elevated which is typical in postoperative course. She is not on any antibiotics per standard protocol at this time. 4. Respiratory status. The patient has been instructed in using incentive spirometry. In conjunction with this, we will continue aggressive ambulation. 5. Prophylaxis. She is on SCDs, early ambulation. 6. In discussion with the hospitalist service and in conjunction with Cardiology and the preoperative discussion, we will discontinue epidural today. We will switch her to a RUBBER CHEMIST and we will start her Lovenox in 12 hours. The patient will not be started on Xarelto initially as we are worried about the bioavailability with respect to a potential although none seen at this point, ileus and then she will go back on the Xarelto once we see GI activity. Jhonatan Keyes MD /[id number]
[2017-07-26] MEDS ORDERED: Midodrine 5 MG Tab PO SCH (14:00)
[2017-07-26] MEDS: Ondansetron 4 MG/2 ML SDV IVPUSH PRN (15:10)
[2017-07-26] MEDS: Metoprolol Tartrate 5 MG/5 ML SDV IVPUSH PRN ×3 (17:15→22:10)
[2017-07-26] MEDS ORDERED: Labetalol 20 MG/4 ML Syringe ONE (19:47)
[2017-07-26] MEDS ORDERED: Metoprolol Tartrate 5 MG/5 ML SDV ONE ×2 (20:02→22:00)
[2017-07-26] MEDS: Acetaminophen 1,000 MG in Premix Bag 1 BAG IV PRN (20:17)
[2017-07-26] MEDS ORDERED: Zolpidem 5 MG Tab PO SCH (21:00)
[2017-07-26] MEDS ORDERED: Docusate Sodium 100 MG Cap PO SCH (21:00)
[2017-07-26] MEDS: Enoxaparin 40 MG/0.4 ML Syringe SUBCUT SCH (21:31)
[2017-07-27] MEDS: Sodium Chloride 0.9% 1,000 ML IV SCH (01:24)
[2017-07-27] MEDS ORDERED: Metoprolol Tartrate 5 MG/5 ML SDV ONE (02:29)
[2017-07-27] MEDS: Metoprolol Tartrate 5 MG/5 ML SDV IVPUSH PRN (02:31)
[2017-07-27] MEDS ORDERED: Ondansetron 4 MG/2 ML SDV ONE ×3 (03:47→19:53)
[2017-07-27] MEDS: Ondansetron 4 MG/2 ML SDV IVPUSH PRN ×3 (03:49→19:56)
[2017-07-27] MEDS: Acetaminophen 1,000 MG in Premix Bag 1 BAG IV PRN ×2 (03:54→19:58)
[2017-07-27] MEDS: VERIFY SCOP PATCH TOP SCH (09:32)
[2017-07-27] MEDS: Dextrose 5%-0.45% NaCl 1,000 ML IV SCH (09:40)
--- NOTE | 2017-07-27 10:41 | PN ---
DATE OF SERVICE: 07/27/2017 SUBJECTIVE: The patient is doing better today. Pain is well controlled. No nausea, vomiting, shortness of breath, or chest pain. Her lethargy from yesterday has completely abated. OBJECTIVE: VITAL SIGNS: Stable. Temperature 98.6, blood pressure 190/60, pulse 102, respirations 18. CARDIOVASCULAR: Regular rhythm and rate. RESPIRATORY: Lungs are clear to consultation bilaterally. ABDOMEN: Nondistended. Minimal bowel sounds. LABORATORY DATA: None today. ASSESSMENT: Status post small bowel resection and colostomy takedown. PLAN: We will consult the hospitalist service today for hypertension and medication management. As far as her ileus is concerned, we will also perform flat and upright abdominal films tomorrow. Although this does not seem to be very extreme at this point, we will begin to tract this. As far as prophylaxis, she remains on Lovenox at this time. We will also continue her Entereg. Jhonatan Keyes MD /[id number]
[2017-07-27] MEDS: Bacitracin Oint 28.35 GM Tube TOP SCH (11:15)
--- NOTE | 2017-07-27 12:21 | PCM.CONS ---
H&P History of Present Illness - General Date of Service: 07/27/17 Admit Problem/Dx: Admission Diagnosis/Problem Admission Diagnosis/Problem Diverticulitis Source of Information: Patient, Provider History Limitations: Reports: No Limitations - History of Present Illness Initial Comments - Free Text/Narative: Chinyere was admitted for colostomy takedown and bowel anastomosis. I was asked to see her by Dr. Keyes regarding hypertension and dizziness. She had some difficulty with accelerated hypertension overnight and systolic blood pressures were greater than 200. She was relatively asymptomatic with this. She is mildly tachycardic. She reports her pain is fairly well-controlled. She does not feel short of breath and has not had any chest pain. No complaints of headache or blurry vision. She does have some intermittent dizziness but right now feels well with no dizziness. Blood pressure has been trending down through the morning without any sort of intervention. Urine output has been good. She is not having fevers. She does have an ileus. Back Pain Score (Numeric/FACES): 6 Abdomen Pain Score (Numeric/FACES): 3 - Related Data Allergies/Adverse Reactions: Allergies Allergy/AdvReac Type Severity Reaction Status Date / Time shellfish derived Allergy Severe Anaphylactic Verified 07/25/17 06:39 Shock oxycodone HCl Allergy Hives Verified 07/25/17 06:39 [From OxyContin] Home Medications: Home Meds Lovastatin 80 tab PO BEDTIME 05/21/14 [History] Omeprazole 40 mg PO DAILY 10/28/14 [History] Fluticasone Propionate [Flonase] 2 spray NS DAILY PRN 03/06/16 [History] traZODone 50 - 150 mg PO BEDTIME PRN 07/03/16 [History] Rivaroxaban [Xarelto] 20 mg PO DAILY 11/19/16 [History] Ferrous Sulfate 325 mg PO BID 05/20/17 [History] Midodrine 10 mg PO TID 05/20/17 [History] Zolpidem [Ambien] 5 mg PO BEDTIME 05/20/17 [History] Albuterol/Ipratropium [DuoNeb 3.0-0.5 MG/3 ML] 3 ml NEB Q4H PRN 07/16/17 [ History] Aspirin [Halfprin] 81 mg PO DAILY 07/16/17 [History] DULoxetine [Cymbalta] 30 mg PO DAILY 07/16/17 [History] Diazepam [Valium] 1 - 1.5 tab PO TID PRN 07/16/17 [History] Fludrocortisone [Florinef] 0.1 mg PO WITHBREAKFAST 07/16/17 [History] Varenicline [Chantix] 1 mg PO BIDPC 07/16/17 [History] tiZANidine [Zanaflex] 4 mg PO Q8H PRN 07/16/17 [History] Past Medical History HEENT History: Reports: Impaired Vision Other HEENT History: wears glasses Cardiovascular History: Reports: Blood Clots/VTE/DVT, High Cholesterol, Hypertension, [place], Prior Cardiac Arrest, SOB on Exertion, Syncope Respiratory History: Reports: COPD, PE, Pneumonia, Recurrent, SOB Gastrointestinal History: Reports: Chronic Diarrhea, Diverticulosis, GERD, Other (See Below) Other Gastrointestinal History: Diverticulitis, ischemic bowel; dysphagia Genitourinary History: Reports: None OCCUPATIONAL THERAPY DEPARTMENT CHAIR History: Reports: Dysfunctional Uterine Bleeding, Other OB/BYN History: hysterectomy and c-sections X3 Musculoskeletal History: Reports: Back Pain, Chronic, RA Other Musculoskeletal History: DJD Neurological History: Reports: Concussion, CVA, Migraines, Vertigo Psychiatric History: Reports: Anxiety, Depression Endocrine/Metabolic History: Reports: Obesity/BMI 30+, Vitamin D Deficiency Hematologic History: Reports: Anticoagulation Therapy, Other (See Below) Other Hematologic History: parasitic toxoplasmosis Immunologic History: Reports: Immunosuppression Other Immunologic History: " Not very good" Immune system Dermatologic History: Reports: Eczema, Seborrheic Dermatitis Other Dermatologic History: tattoos on both arms - Infectious Disease History Infectious Disease History: Reports: Chicken Pox, Measles Other Infectious Disease History: unable to obtain - Past Surgical History HEENT Surgical History: Reports: Naso-Sinus Surgery Cardiovascular Surgical History: Reports: None, Coronary Artery Stent Respiratory Surgical History: Reports: None GI Surgical History: Reports: Appendectomy, Cholecystectomy, Colon, Colonoscopy , Colostomy, EGD, Hernia, Abdominal Female Surgical History: Reports: Breast Biopsy, Section, Hysterectomy, Salpingo-Oophorectomy Endocrine Surgical History: Reports: None Neurological Surgical History: Reports: None Musculoskeletal Surgical History: Reports: Shoulder Replacement Dermatological Surgical History: Reports: Skin Graft Social & Family History - Family History Cardiac: Reports: Heart Failure Neurological: Reports: CVA Endocrine/Metabolic: Reports: Hypothyroidism Dermatologic: Reports: Eczema - Tobacco Use Smoking Status *Q: Current Some Day Smoker Years of Tobacco use: 40 Packs/Tins Daily: 0.2 Used Tobacco, but Quit: No Month Tobacco Last Used: 2015 Second Hand Smoke Exposure: Yes - Caffeine Use Caffeine Use: Reports: Coffee - Alcohol Use Days Per Week of Alcohol Use: 0 - Recreational Drug Use Recreational Drug Use: No Drug Use in Last 12 Months: No H&P Review of Systems - Review of Systems: Review Of Systems: See Below Free Text/Narrative: A complete 12 point review of systems was obtained. Pertinent positives and negatives are noted in the history of present illness. All other systems were reviewed and were negative except as noted. Exam - Exam Exam: See Below - Vital Signs Vital Signs: Last Vital Signs Temp 37.3 C 07/27/17 11:16 Pulse 98 07/27/17 11:16 Resp 18 07/27/17 11:16 BP 163/89 H 07/27/17 11:16 Pulse Ox 97 07/27/17 11:16 Orthostatic Blood Pressure [ 152/90 Standing] Orthostatic Blood Pressure [ 160/100 Sitting] Orthostatic Blood Pressure [ 172/94 Supine] Weight: 90.718 kg - Exam Quality Assessment: Supplemental Oxygen General: Alert, Oriented, Cooperative. No: Mild Distress HEENT: Conjunctiva Clear, Mucosa Moist & [place]. No: Scleral Icterus Neck: Supple, Trachea Midline Lungs: Clear to Auscultation, Normal Respiratory Effort Cardiovascular: Regular Rhythm, Tachycardia. No: Systolic Murmur GI/Abdominal Exam: Soft, No Distention Extremities: No Pedal Edema. No: Increased Warmth Skin: Warm, Dry Neurological: Normal Speech Neuro Extensive - Mental Status: Alert, Oriented x3, Nl Response to Commands Neuro Extensive - Motor, Sensory, Reflexes: CN II-XII Intact. No: Dysarthria, Abnormal Motor, Tremor Psychiatric: Alert, Normal Affect - Patient Data Result Diagrams: 07/26/17 05:21 07/26/17 05:21 Consult PN Assessment/Plan POD#: 2 Procedures: Procedures AIRWAY INHALATION TREATMENT (10/28/14) ASSAY OF ACETAMINOPHEN (05/22/14) ASSAY OF CK (CPK) (10/18/15) ASSAY OF ETHANOL (05/22/14) ASSAY OF LACTIC ACID (07/23/16) ASSAY OF LIPASE (07/23/16) ASSAY OF MAGNESIUM (07/23/16) ASSAY OF NATRIURETIC PEPTIDE (10/18/15) ASSAY OF SALICYLATE (05/22/14) ASSAY OF TROPONIN QUANT (05/20/17) BLOOD CULTURE FOR BACTERIA (10/28/14) BLOOD GASES ANY COMBINATION (07/23/16) C-REACTIVE PROTEIN (07/03/16) CHEST X-RAY 1 VIEW FRONTAL (01/31/17) CHEST X-RAY 2VW FRONTAL&LATL (05/20/17) COMP SCREEN MAMMOGRAM ADD-ON (03/01/15) COMPLETE CBC AUTOMATED (07/23/16) COMPLETE CBC W/AUTO DIFF WBC (05/20/17) COMPREHEN METABOLIC PANEL (05/20/17) CREATINE MB FRACTION (05/20/17) CT ABD & PELV W/CONTRAST (07/03/16) CT ABD & PELVIS W/O CONTRAST (03/17/17) CT ANGIOGRAPHY CHEST (07/23/16) CT HEAD/BRAIN W/O DYE (01/03/15) CT THORAX W/O DYE (04/19/15) CULTURE SCREEN ONLY (12/12/14) EGD BIOPSY SINGLE/MULTIPLE (12/12/14) ELECTROCARDIOGRAM TRACING (05/20/17) EMERGENCY DEPT VISIT (05/20/17) EMERGENCY DEPT VISIT (01/31/17) EMERGENCY DEPT VISIT (03/28/16) EMERGENCY DEPT VISIT (02/09/16) EMERGENCY DEPT VISIT (11/13/15) EMERGENCY DEPT VISIT (10/18/15) EMERGENCY DEPT VISIT (08/16/15) EMERGENCY DEPT VISIT (06/26/15) EMERGENCY DEPT VISIT (10/28/14) EMERGENCY DEPT VISIT (07/31/14) EMERGENCY DEPT VISIT (06/23/14) EMERGENCY DEPT VISIT (05/22/14) EVALUATION OF WHEEZING (11/28/14) EXTRACRANIAL BILAT STUDY (06/17/17) EXTREMITY STUDY (06/26/15) FIBRIN DEGRADATION QUANT (06/26/15) HYDRATE IV INFUSION ADD-ON (06/23/14) HYDRATION IV INFUSION INIT (05/22/14) INJECT SPINE LUMBAR/SACRAL (06/05/16) INJECT TRIGGER POINTS 3/> (06/05/16) MANUAL THERAPY 1/> REGIONS (02/05/16) METABOLIC PANEL TOTAL CA (11/28/16) MRI BRAIN STEM W/O & W/DYE (01/11/15) MRI JOINT UPR EXTREM W/O DYE (05/29/15) MRI LUMBAR SPINE W/O DYE (06/02/14) MRI NECK SPINE W/O DYE (03/01/15) NEUROMUSCULAR REEDUCATION (02/05/16) OBSERV/HOSP SAME DATE (05/22/14) OT EVALUATION (03/24/15) PROTHROMBIN TIME (02/09/16) PT EVALUATION (02/05/16) ROUTINE VENIPUNCTURE (05/20/17) SKIN SPLT GRFT T/A/L ADD-ON (11/28/16) SKIN SPLT GRFT TRNK/ARM/LEG (11/28/16) THER/PROPH/DIAG INJ IV PUSH (07/03/16) THER/PROPH/DIAG INJ SC/IM (11/13/15) THROMBOPLASTIN TIME PARTIAL (02/18/15) TTE W/DOPPLER COMPLETE (07/03/17) TX/PRO/DX INJ NEW DRUG ADDON (07/03/16) ULTRASOUND THERAPY (02/05/16) URINALYSIS AUTO W/SCOPE (05/20/17) WITHDRAWAL OF ARTERIAL BLOOD (07/23/16) WOUND PREP ADDL 100 CM (11/28/16) WOUND PREP TRK/ARM/LEG (11/28/16) X-RAY EXAM HIP UNI 2-3 VIEWS (11/13/15) X-RAY EXAM L-2 SPINE 4/>VWS (07/31/14) X-RAY EXAM OF ABDOMEN (07/23/16) X-RAY EXAM OF HIP (07/31/14) X-RAY EXAM OF SHOULDER (02/09/16) X-RAY EXAM OF WRIST (02/09/16) Problem List Initiated/Reviewed/Updated: Yes Plan: ASSESSMENT AND PLAN Accelerated hypertension - early patient has difficulty with orthostatic hypotension and takes midodrine. Has had difficulty with hypertension over the past 2 days. She is asymptomatic with the hypertension. Blood pressures have been trending down throughout the day. Some but not a great response to IV metoprolol throughout the night. No history of hypertension. Pain has been well -controlled. -Currently no indication for treatment his blood pressure is trending down -Consider treatment for blood pressures above 180 systolic or if symptoms, IV hydralazine 5-10 mg every 4-6 hours could be considered if metoprolol is ineffective -Following status seems appropriate at this time Status post colostomy takedown - clinically doing well but postop course has been complicated by an ileus. -Postop cares per Dr. Keyes Thank you for the interesting consultation. I will continue to follow along with Chinyere's care until the blood pressure issue is resolved. Kel Tabor MD Requesting Provider: Dr Keyes Date Consult Requested: 07/27/17 Reason for Consult: Hypertension Patient History Reviewed: Yes Admission H&P Reviewed: Yes Notified Requestor: Yes Time Spent (in minutes): 45
[2017-07-27] MEDS: Enoxaparin 40 MG/0.4 ML Syringe SUBCUT SCH (20:01)
[2017-07-28] MEDS ORDERED: Potassium Chloride 40 MEQ/20 ML SDV IV SCH (07:15)
[2017-07-28] MEDS: VERIFY SCOP PATCH TOP SCH (08:31)
--- NOTE | 2017-07-28 08:38 | CR ---
Abdomen 2V AP Flat Upright INDICATION: possible ileus FINDINGS: Surgical clips in the upper abdomen. Surgical drains in the mid abdomen. Mild prominence of small bowel loops in the central abdomen consistent with ileus. Stool in the distal colon/rectum.
--- NOTE | 2017-07-28 08:42 | CR ---
Chest 2V INDICATION: elevated wbc FINDINGS: Comparison 05/20/2017. Heart size at the upper limits of normal. Lungs are clear. Reverse lef t total shoulder arthroplasty. Exam otherwise negative.
[2017-07-28] MEDS: Dextrose 5%-0.45% NaCl 1,000 ML IV SCH ×2 (08:49→21:58)
--- NOTE | 2017-07-28 09:03 | PN ---
DATE OF SERVICE: 07/25/2017 TIME: At approximately 0800 hours. The patient, Anesthesia, and I had a further discussion, which was an extension of the previous clinic discussions. We discussed the Cardiology recommendations and the guidelines, which we did show to her and review, which are unclear on the management of a pulmonary embolism in the setting of Xarelto and major surgical procedures. The options were given to the patient for cancelling the surgery with starting on the Lovenox bridge, which would preclude her from any epidural. I did explain to her this is the safest choice, and the patient has refused this choice. We did discuss risks, benefits, alternatives, limitations, and we discussed pulmonary embolisms, strokes, heart attacks, epidural bleeding, hematoma formation within the epidural sheath. We went through these in extensive detail, using risks, benefits, alternatives, and limitations. The patient has selected epidural catheter, which we will shorten to less than 24 hours to decrease her clotting risk; however, I think this is our best balanced effort with reducing her risk and controlling her significant anxiety with postoperative pain. Lovenox will be started approximately 12 hours after epidural removal. In the interim, we will also work postoperatively on the early ambulation and SCDs to also further prevent any complications. She will stay on Lovenox then, until she is able to tolerate p.o., and then we will start her back on her Xarelto. We also discussed the surgery again that she is a high risk surgical candidate with respect to fistula formation, leaks, and other risks. I also discussed with her that the safest choice for her would be just to keep her ostomy. The patient adamantly refused that option, which I understand. Therefore, the plan will be to proceed with an epidural for pain management, to remove this as soon as possible, and then replace it with a CAMPUS PRESIDENT. In addition, we will start her on Lovenox as soon as possible and then convert her back to Xarelto. The patient understands these risks and wished to proceed. Of note, discussion was held in front of her CAMPUS PRESIDENT, herself along with Anesthesia, nursing, and myself. Jhonatan Keyes MD /[id number]
[2017-07-28] MEDS: Potassium Chloride 20 MEQ, Lidocaine 1% 2 ML in Sodium Chloride 0.9% 100 ML IV SCH ×3 (09:16→13:58)
--- NOTE | 2017-07-28 09:33 | OR ---
DATE OF PROCEDURE: 07/25/2017 PROCEDURES: 1. Extensive lysis of adhesions, abdomen (57337). 2. Ostomy takedown with primary anastomosis of right colon to remnant sigmoid colon. 3. 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 4. Small bowel resection, abdomen, ileum (85483). 5. Placement of intrapelvic mesh for the purpose of retention/exclusion of the small bowel from the pelvis. 6. Modifier 22 of the aforementioned procedures due to the lengthy time of the procedure (operative time greater than 4 hours on a typical 2 hour procedure), excessive large body habitus, BMI greater than 45, operative procedure is more complex than typically described by submitted CPT code and not applicable by another more appropriate code. COMPLICATIONS: None. BRAZING FURNACE OPERATOR: None. ANESTHETIC: Epidural/MAC. INDICATIONS FOR PROCEDURE: This is a pleasant 61-year-old female who had an ostomy placed greater than one year ago. This is complicated by what the patient describes as a pulmonary embolism in combination with a coronary stent, which was removed. The patient, Anesthesia, and myself in conjunction with Cardiology consultation had a complex discussion over the last couple of weeks about the choices described. Please see the preoperative note for summary of this. Essentially, the recommendations were to have the patient undergo general anesthetic with Lovenox bridge, which the patient refused, so as an alternative she underwent an epidural, due to her anxiety and pain concerns, which would be short-term, then converted to Lovenox and then eventually to Xarelto. In addition to those complication discussions, we also discussed the risks, benefits, and alternatives of the ostomy takedown to include small bowel resection, fistula formation, requirement for an additional ostomy and others including leaks and abscess formation, other risks not listed here. In addition, I also discussed preoperatively that the patient essentially has no abdominal wall just a skin graft performed by myself, which has healed well, but there is always a concern for ongoing fistula formation, wound formation, and other risks not listed here. The patient understands these risks and wishes to proceed. PROCEDURE IN DETAIL: The patient was prepped and draped after epidural anesthetic. A midline abdominal incision was performed initially in the lower pelvis to avoid entry into the area of the skin graft. This was performed, and the abdomen was entered. Prior to this, there was a small defect in the skin in the midline. This would turn supervisor to be a fistula between the small bowel and the skin. This was not surprising, as the patient essentially has no abdominal wall, and her bowel had been in direct contact with the skin graft prior to this. This fistula will be repaired via resection during this process. During the next approximately 1 hour, the midline abdominal incision would be made. This would be approximately 10 to 15 cm in size. Of note, prior to this, a colonoscopy would be performed intraoperatively to verify that this was a Parish's type procedure. Again over the next 1 hour, lysis of adhesions will be performed to enter the abdominal cavity. The fistula, which was identified, was sutured with a 3-0 Vicryl suture and again would be resected. Additional enterotomy x2 would be noted, and fortunately the fistula and two enterotomies would be able to be all resected in one single specimen, which would be called ileum. Dissection again continued within the abdomen. This was complicated by the patient's morbid obesity and the significant inflammation associated with her complex surgical history, including her history of diverticulitis. Eventually, the rectal stump would be identified. This would be transected with a blue load stapler, especially as there was inflammation and this was adhered to the left lower abdominal wall. Once the remnant of the ascending colon was mobilized, this would also be brought in proximity to the sigmoid colon. Of note, both anastomosis were created toward the end of the procedure, lysis of adhesions, irrigation, etc., would be performed, and then the anastomosis would be created. The colonic anastomosis would be performed in a [id number] functional end-to-end anastomosis by two 60 mm staplers. This was performed by creating a defect in the antimesenteric side. Two staplers were fired. Allis clamps were used to transect the remnant. An additional stitch was placed to prevent "unzipping" of the anastomosis. The mesenteric defect would be closed with a running 3-0 Vicryl suture. The small bowel anastomosis would then be performed in the similar-type antimesenteric anastomotic with double load staplers, anti-zip stitch, and Allis clamps used to close the defect. Vicryl was also used to close the mesenteric defect, as previously described. Tisseel will be placed over this. Vicryl mesh was also placed to keep the small bowel from interfering and tracking down into the pelvis, as there is concern for adhesions, if this requires additional surgical intervention. Furthermore, the Vicryl mesh provided a layer of protection from the small bowel directly contacting and recurring the fistula formation. Once this was completed, the estimated blood loss would be approximately 150 mL. Of note, white load staplers were used to transect the mesentery of all the aforementioned bowel. Minimal bleeding was controlled by electrocautery. Also during this process, the ostomy takedown was part of the colon anastomosis. This takedown was performed by using a 15 blade to elliptically mobilize the colon. This was able to be passed to the abdominal wall. Of note, the ostomy had been closed prior to prepping using a pursestring type stitch, and no leak was noted from this. This was also transected prior to anastomosis and sent for pathology, labeled ostomy. Once this was all completed, the skin graft itself looked dusky in nature; however, the patient had a significant loss of domain, and the skin graft would be anastomosed again with very limited 3-0 Vicryl, due to the concern of interrupting the blood supply and abdirahman to keep this on the midline and closed. Aquacel Ag dressings were performed. The patient tolerated the procedure well. Jhonatan Keyes MD /[id number]
--- NOTE | 2017-07-28 10:58 | PCM.CONSN ---
- General Info Date of Service: 07/28/17 Functional Status: Reports: Pain Controlled, Tolerating Diet - Review of Systems General: Reports: Weakness, Fatigue Gastrointestinal: Reports: Abdominal Pain (mild) Systems Review Comment:: No acute events overnight. Blood pressure has remained elevated but she has not required when necessary medications. No complaints of dizziness today but she does report feeling very tired. She is having difficulty waking up as the morning progresses. She reports only mild abdominal pain at this time. She is passing gas. She has not had any fevers or white count is up a little bit today. - Patient Data Vitals - Most Recent: Last Vital Signs Temp 37.3 C 07/28/17 07:00 Pulse 106 H 07/28/17 07:00 Resp 24 H 07/28/17 07:00 BP 165/69 H 07/28/17 07:00 Pulse Ox 93 L 07/28/17 07:00 Orthostatic Blood Pressure [ 152/90 Standing] Orthostatic Blood Pressure [ 160/100 Sitting] Orthostatic Blood Pressure [ 172/94 Supine] Weight - Most Recent: 90.718 kg I&O - Last 24 Hours: Intake & Output 07/27/17 07/28/17 07/28/17 22:59 06:59 14:59 Intake Total 721 711 100 Output Total 1535 1015 300 Balance -814 -304 -200 Lab Results Last 24 Hours: Laboratory Results - last 24 hr 07/28/17 07/28/17 07/28/17 Range/Units 06:00 06:00 06:00 WBC 17.9 H (4.5-11.0) K/uL RBC 4.29 (3.30-5.50) M/uL Hgb 12.6 (12.0-15.0) g/dL Hct 36.3 (36.0-48.0) % MCV 85 (80-98) fL MCH 29 (27-31) pg MCHC 35 (32-36) % Plt Count 401 H (150-400) K/uL Sodium 139 L (140-148) mmol/L Potassium 2.8 L* (3.6-5.2) mmol/L Chloride 102 (100-108) mmol/L Carbon Dioxide 27 (21-32) mmol/L Anion Gap 12.8 (5.0-14.0) mmol/L BUN 10 (7-18) mg/dL Creatinine 0.7 (0.6-1.0) mg/dL Est Cr Clr Drug Dosing 76.90 mL/min Estimated GFR (MDRD) > 60 (>60) Glucose 148 H (74-106) mg/dL Calcium 9.5 (8.5-10.1) mg/dL Phosphorus 1.8 L (2.5-4.9) mg/dL Magnesium 1.9 D (1.8-2.4) mg/dL Med Orders - Current: Current Medications Albuterol/Ipratropium (Duoneb 3.0-0.5 Mg/3 Ml) 3 ml NEB Q4H PRN PRN Reason: Wheezing Alvimopan (Entereg) 12 mg PO BID [facility] Stop: 08/01/17 21:01 Last Admin: 07/27/17 20:01 Dose: 12 mg Bacitracin (Bacitracin Oint) 0 gm TOP ASDIRECTED [facility] Last Admin: 07/27/17 11:15 Dose: 1 applic Benzocaine/Menthol (Cepacol Sore Throat) 1 lozenge MUCMEM Q1H PRN PRN Reason: Sore Throat Diphenhydramine HCl (Benadryl) 50 mg IVPUSH Q6H PRN PRN Reason: ITCHING Enoxaparin Sodium (Lovenox) 40 mg SUBCUT BEDTIME [facility] Last Admin: 07/27/17 20:01 Dose: 40 mg Fentanyl (Sublimaze) 25 mcg IVPUSH Q1H PRN PRN Reason: Pain (moderate 4-6) Fluticasone Propionate (Flonase) 0 gm NASBOTH DAILY PRN PRN Reason: Allergies Hydroxyzine HCl (Vistaril) 50 mg IM Q4H PRN PRN Reason: Nausea Dextrose/Sodium Chloride (Dextrose 5%-1/2 Ns) 1,000 mls @ 75 mls/hr IV ASDIRECTED [facility] Last Admin: 07/28/17 08:49 Dose: 75 mls/hr Potassium Chloride 20 meq/Lidocaine HCl 2 ml/ Sodium Chloride 112 mls @ 56 mls/ hr IV Q2H [facility] Stop: 07/28/17 14:59 Last Admin: 07/28/17 09:16 Dose: 56 mls/hr Naloxone HCl (Narcan) 0.1 mg IVPUSH Q5M PRN PRN Reason: RESP RATE LESS THAN 6/MINUTE Naloxone HCl (Narcan) 0.4 mg IV ASDIRECTED PRN PRN Reason: ITCHING Verify Scop Patch 0 each TOP DAILY [facility] Last Admin: 07/28/17 08:31 Dose: Not Given Ondansetron HCl (Zofran) 4 - 8 mg IVPUSH Q4H PRN PRN Reason: Nausea/Vomiting Last Admin: 07/27/17 19:56 Dose: 4 mg Promethazine HCl (Phenergan) 25 mg IM Q6H PRN PRN Reason: Nausea Last Admin: 07/26/17 13:16 Dose: 25 mg Discontinued Medications Albuterol/Ipratropium (Duoneb 3.0-0.5 Mg/3 Ml) 3 ml NEB Q4H PRN PRN Reason: Wheezing Aspirin (Halfprin) 81 mg PO DAILY [facility] Last Admin: 07/26/17 11:27 Dose: 81 mg Bisacodyl (Dulcolax) 10 mg PO BID [facility] Last Admin: 07/26/17 11:26 Dose: 10 mg Dexamethasone (Dexamethasone) Confirm Administered Dose 4 mg .ROUTE .STK-MED ONE Stop: 07/25/17 07:18 Diphenhydramine HCl (Benadryl) 50 mg IVPUSH Q4H PRN PRN Reason: Itching Last Admin: 07/25/17 12:52 Dose: 50 mg Docusate Sodium (Colace) 100 mg PO BID PRN PRN Reason: Constipation Duloxetine HCl (Cymbalta) 30 mg PO DAILY [facility] Last Admin: 07/26/17 11:27 Dose: 30 mg Fentanyl (Sublimaze) Confirm Administered Dose 250 mcg .ROUTE .STK-MED ONE Stop: 07/25/17 07:18 Fludrocortisone Acetate (Florinef) 0.1 mg PO WITHBREAKFAST [facility] Last Admin: 07/26/17 11:27 Dose: 0.1 mg Glycopyrrolate (Robinul) Confirm Administered Dose 1 mg .ROUTE .STK-MED ONE Stop: 07/25/17 07:18 Metronidazole 500 mg/ Premix 100 mls @ 100 mls/hr IV ONETIME ONE Stop: 07/25/17 07:59 Last Admin: 07/25/17 09:11 Dose: 100 mls/hr Sodium Chloride (Normal Saline) 1,000 mls @ 75 mls/hr IV ASDIRECTED [facility] Last Admin: 07/26/17 04:43 Dose: 75 mls/hr Cefazolin Sodium 2 gm/ Sodium (Chloride) 50 mls @ 100 mls/hr IV ONETIME ONE Stop: 07/25/17 07:29 Last Admin: 07/25/17 09:11 Dose: 100 mls/hr Fentanyl 2,500 mcg/ Sodium (Chloride) 250 mls @ 0 mls/hr EPIDUR TITRATE [facility]; Titrate PRN Reason: Protocol Last Admin: 07/26/17 04:05 Dose: 12 ml/hr, 12 mls/hr Lactated Ringer's (Ringers, Lactated) Confirm Administered Dose 1,000 mls @ as directed .ROUTE .STK-MED ONE Stop: 07/25/17 09:55 Acetaminophen 1,000 mg/ Premix 100 mls @ 400 mls/hr IV Q6H PRN PRN Reason: Pain (severe 7-10) Stop: 07/26/17 12:31 Last Admin: 07/25/17 22:39 Dose: 400 mls/hr Naloxone HCl 0.4 mg/ Sodium (Chloride) 1,001 mls @ 75 mls/hr IV ASDIRECTED ONE Stop: 07/26/17 04:20 Last Admin: 07/25/17 15:02 Dose: 75 mls/hr Sodium Chloride (Normal Saline) 1,000 mls @ 125 mls/hr IV ASDIRECTED [facility] Last Admin: 07/27/17 01:24 Dose: 125 mls/hr Acetaminophen 1,000 mg/ Premix 100 mls @ 400 mls/hr IV Q6H PRN PRN Reason: Pain Stop: 07/27/17 20:09 Last Admin: 07/27/17 19:58 Dose: 400 mls/hr Meropenem (Merrem) Confirm Administered Dose 500 mg .ROUTE .STK-MED ONE Stop: 07/25/17 11:05 Last Admin: 07/25/17 11:11 Dose: 500 mg Metoprolol Tartrate (Lopressor) 5 mg IVPUSH Q1H PRN PRN Reason: Hypertension Last Admin: 07/27/17 02:31 Dose: 5 mg Midodrine (Midodrine) 10 mg PO TID [facility] Last Admin: 07/26/17 14:14 Dose: 10 mg Neostigmine Methylsulfate (Neostigmine) Confirm Administered Dose 5 mg .ROUTE .STK-MED ONE Stop: 07/25/17 07:18 Ondansetron HCl (Zofran) Confirm Administered Dose 4 mg .ROUTE .STK-MED ONE Stop: 07/25/17 07:18 Pantoprazole Sodium (Protonix) 40 mg PO ACBREAKFAST [facility] Last Admin: 07/26/17 11:27 Dose: 40 mg Propofol (Diprivan 20 Ml) Confirm Administered Dose 200 mg .ROUTE .STK-MED ONE Stop: 07/25/17 07:18 Rocuronium [place] (Zemuron) Confirm Administered Dose 50 mg .ROUTE .STK-MED ONE Stop: 07/25/17 07:18 Scopolamine (Transderm-Scop) 1.5 mg TOP Q72H [facility] Stop: 07/28/17 04:00 Last Admin: 07/25/17 15:00 Dose: 1.5 mg Succinylcholine Chloride (Quelicin) Confirm Administered Dose 200 mg .ROUTE .STK -MED ONE Stop: 07/25/17 07:18 - Exam Quality Assessment: Supplemental Oxygen General: Alert, Oriented, Cooperative, No Acute Distress Neck: Supple Lungs: Clear to Auscultation, Normal Respiratory Effort Cardiovascular: Regular Rhythm, Tachycardia GI/Abdominal Exam: Normal Bowel Sounds, Soft, No Distention Extremities: No Pedal Edema Skin: Warm, Dry Psy/Mental Status: Alert, Normal Affect Consult PN Assessment/Plan POD#: 3 Procedures: Procedures AIRWAY INHALATION TREATMENT (10/28/14) ASSAY OF ACETAMINOPHEN (05/22/14) ASSAY OF CK (CPK) (10/18/15) ASSAY OF ETHANOL (05/22/14) ASSAY OF LACTIC ACID (07/23/16) ASSAY OF LIPASE (07/23/16) ASSAY OF MAGNESIUM (07/23/16) ASSAY OF NATRIURETIC PEPTIDE (10/18/15) ASSAY OF SALICYLATE (05/22/14) ASSAY OF TROPONIN QUANT (05/20/17) BLOOD CULTURE FOR BACTERIA (10/28/14) BLOOD GASES ANY COMBINATION (07/23/16) C-REACTIVE PROTEIN (07/03/16) CHEST X-RAY 1 VIEW FRONTAL (01/31/17) CHEST X-RAY 2VW FRONTAL&LATL (05/20/17) COMP SCREEN MAMMOGRAM ADD-ON (03/01/15) COMPLETE CBC AUTOMATED (07/23/16) COMPLETE CBC W/AUTO DIFF WBC (05/20/17) COMPREHEN METABOLIC PANEL (05/20/17) CREATINE MB FRACTION (05/20/17) CT ABD & PELV W/CONTRAST (07/03/16) CT ABD & PELVIS W/O CONTRAST (03/17/17) CT ANGIOGRAPHY CHEST (07/23/16) CT HEAD/BRAIN W/O DYE (01/03/15) CT THORAX W/O DYE (04/19/15) CULTURE SCREEN ONLY (12/12/14) EGD BIOPSY SINGLE/MULTIPLE (12/12/14) ELECTROCARDIOGRAM TRACING (05/20/17) EMERGENCY DEPT VISIT (05/20/17) EMERGENCY DEPT VISIT (01/31/17) EMERGENCY DEPT VISIT (03/28/16) EMERGENCY DEPT VISIT (02/09/16) EMERGENCY DEPT VISIT (11/13/15) EMERGENCY DEPT VISIT (10/18/15) EMERGENCY DEPT VISIT (08/16/15) EMERGENCY DEPT VISIT (06/26/15) EMERGENCY DEPT VISIT (10/28/14) EMERGENCY DEPT VISIT (07/31/14) EMERGENCY DEPT VISIT (06/23/14) EMERGENCY DEPT VISIT (05/22/14) EVALUATION OF WHEEZING (11/28/14) EXTRACRANIAL BILAT STUDY (06/17/17) EXTREMITY STUDY (06/26/15) FIBRIN DEGRADATION QUANT (06/26/15) HYDRATE IV INFUSION ADD-ON (06/23/14) HYDRATION IV INFUSION INIT (05/22/14) INJECT SPINE LUMBAR/SACRAL (06/05/16) INJECT TRIGGER POINTS 3/> (06/05/16) MANUAL THERAPY 1/> REGIONS (02/05/16) METABOLIC PANEL TOTAL CA (11/28/16) MRI BRAIN STEM W/O & W/DYE (01/11/15) MRI JOINT UPR EXTREM W/O DYE (05/29/15) MRI LUMBAR SPINE W/O DYE (06/02/14) MRI NECK SPINE W/O DYE (03/01/15) NEUROMUSCULAR REEDUCATION (02/05/16) OBSERV/HOSP SAME DATE (05/22/14) OT EVALUATION (03/24/15) PROTHROMBIN TIME (02/09/16) PT EVALUATION (02/05/16) ROUTINE VENIPUNCTURE (05/20/17) SKIN SPLT GRFT T/A/L ADD-ON (11/28/16) SKIN SPLT GRFT TRNK/ARM/LEG (11/28/16) THER/PROPH/DIAG INJ IV PUSH (07/03/16) THER/PROPH/DIAG INJ SC/IM (11/13/15) THROMBOPLASTIN TIME PARTIAL (02/18/15) TTE W/DOPPLER COMPLETE (07/03/17) TX/PRO/DX INJ NEW DRUG ADDON (07/03/16) ULTRASOUND THERAPY (02/05/16) URINALYSIS AUTO W/SCOPE (05/20/17) WITHDRAWAL OF ARTERIAL BLOOD (07/23/16) WOUND PREP ADDL 100 CM (11/28/16) WOUND PREP TRK/ARM/LEG (11/28/16) X-RAY EXAM HIP UNI 2-3 VIEWS (11/13/15) X-RAY EXAM L-2 SPINE 4/>VWS (07/31/14) X-RAY EXAM OF ABDOMEN (07/23/16) X-RAY EXAM OF HIP (07/31/14) X-RAY EXAM OF SHOULDER (02/09/16) X-RAY EXAM OF WRIST (02/09/16) Problem List Initiated/Reviewed/Updated: Yes My Orders Last 24 Hours: My Active Orders 07/27/17 17:49 Communication Order [RC] Q12H 07/28/17 10:55 TROPONIN I [CHEM] Routine Plan: ASSESSMENT AND PLAN Accelerated hypertension - pressure has been stable and she has not required when necessary medications. Levels have not gone back down into the normal range as of yet. Volume status seems appropriate. Possibly a component of withdrawal from one of her home medications she has been off them for a few days. -Currently no indication for treatment his blood pressure is trending down -Consider treatment for blood pressures above 180 systolic or if symptoms, IV hydralazine 5-10 mg every 4-6 hours could be considered if metoprolol is ineffective -Restart home medications Profound fatigue - etiology not entirely clear, no strong evidence for infection at this time but urine sample is pending. May be related to medications such as her scopolamine patch. Would be related to lack of home medications such as benzodiazepines. -Discontinue scopolamine patch -Restart home medications Status post colostomy takedown - clinically doing well but postop course has been complicated by an ileus which seems to be resolving. -Postop cares per Dr. Wali Tabor MD
[2017-07-28] MEDS: Diazepam 5 MG Tab PO PRN ×2 (12:12→20:33)
[2017-07-28] MEDS: Rivaroxaban 10 MG Tab PO SCH (12:12)
[2017-07-28] MEDS: Acetaminophen 325 MG Tab PO PRN ×2 (12:13→20:32)
[2017-07-28] MEDS: Ondansetron 4 MG/2 ML SDV IVPUSH PRN (20:33)
[2017-07-28] MEDS: fentaNYL 100 MCG/2 ML SDV IVPUSH PRN (21:51)
[2017-07-29] MEDS: fentaNYL 100 MCG/2 ML SDV IVPUSH PRN ×2 (01:55→03:59)
[2017-07-29] MEDS: Acetaminophen 325 MG Tab PO PRN ×2 (03:59→08:31)
[2017-07-29] MEDS: Diazepam 5 MG Tab PO PRN ×3 (03:59→20:50)
[2017-07-29] MEDS: Ondansetron 4 MG/2 ML SDV IVPUSH PRN (05:03)
[2017-07-29] MEDS: Rivaroxaban 10 MG Tab PO SCH (08:26)
[2017-07-29] MEDS: DULoxetine 30 MG Cap PO SCH (08:26)
[2017-07-29] MEDS: Fludrocortisone 0.1 MG Tab PO SCH (08:26)
--- NOTE | 2017-07-29 08:33 | CR ---
Abdomen 2V AP Flat Upright INDICATION: possible FINDINGS: Comparison 07/28/2017. Postoperative changes in the abdomen. Surgical drains in place. No f ree air. Stable mild prominence of small bowel loops in the central abdomen.
[2017-07-29] MEDS: Ferrous Sulfate 325 MG Tab PO SCH ×2 (09:16→20:52)
[2017-07-29] MEDS: metroNIDAZOLE/Normal Saline 500 MG in Premix Bag 1 BAG IV SCH ×2 (09:16→16:38)
[2017-07-29] MEDS: ceFAZolin 2 GM in Sodium Chloride 0.9% 50 ML IV SCH ×2 (10:32→17:56)
[2017-07-29] MEDS: Dextrose 5%-0.45% NaCl 1,000 ML IV SCH (10:32)
[2017-07-29] MEDS ORDERED: Potassium Chloride 20 MEQ Tab.ER PO ONE ×2 (12:00→18:00)
--- NOTE | 2017-07-29 12:09 | PCM.CONSN ---
- General Info Date of Service: 07/29/17 Subjective Update: Ms. Vick has been stable since yesterday, tolerating liquid diet and did have a bowel movement this morning. Vital signs have been stable with no further evidence of significant hypertension, she has been afebrile. Functional Status: Reports: Pain Controlled, Tolerating Diet, Ambulating - Review of Systems General: Reports: Weakness. Denies: Fever, Chills Pulmonary: Reports: No Symptoms Cardiovascular: Reports: No Symptoms Gastrointestinal: Reports: Abdominal Pain. Denies: Diarrhea, Difficulty Swallowing, Hematochezia, Melena, Nausea, Vomiting - Patient Data Vitals - Most Recent: Last Vital Signs Temp 98.9 F 07/29/17 12:04 Pulse 115 H 07/29/17 12:04 Resp 24 H 07/29/17 12:04 BP 139/73 07/29/17 12:04 Pulse Ox 96 07/29/17 12:04 Orthostatic Blood Pressure [ 152/90 Standing] Orthostatic Blood Pressure [ 160/100 Sitting] Orthostatic Blood Pressure [ 172/94 Supine] Weight - Most Recent: 199 lb 15.983 oz I&O - Last 24 Hours: Intake & Output 07/28/17 07/29/17 07/29/17 22:59 06:59 14:59 Intake Total 1571 960 500 Output Total 1605 630 400 Balance -34 330 100 Lab Results Last 24 Hours: Laboratory Results - last 24 hr 07/25/17 07/29/17 Range/Units 08:00 05:00 WBC 13.6 H (4.5-11.0) K/uL RBC 4.15 (3.30-5.50) M/uL Hgb 11.7 L (12.0-15.0) g/dL Hct 35.9 L (36.0-48.0) % MCV 87 (80-98) fL MCH 28 (27-31) pg MCHC 33 (32-36) % Plt Count 449 H (150-400) K/uL Neut % (Auto) 80 H (36-66) % Lymph % (Auto) 10 L (24-44) % Johnson % (Auto) 8 H (2-6) % Eos % (Auto) 2 (2-4) % Baso % (Auto) 0 (0-1) % Crossmatch See Detail Med Orders - Current: Current Medications Acetaminophen (Tylenol) 650 mg PO Q6H PRN PRN Reason: Pain/Fever Last Admin: 07/29/17 08:31 Dose: 650 mg Albuterol/Ipratropium (Duoneb 3.0-0.5 Mg/3 Ml) 3 ml NEB Q4H PRN PRN Reason: Wheezing Alvimopan (Entereg) 12 mg PO BID [facility] Stop: 08/01/17 21:01 Last Admin: 07/29/17 08:26 Dose: 12 mg Bacitracin (Bacitracin Oint) 0 gm TOP ASDIRECTED [facility] Last Admin: 07/27/17 11:15 Dose: 1 applic Benzocaine/Menthol (Cepacol Sore Throat) 1 lozenge MUCMEM Q1H PRN PRN Reason: Sore Throat Diazepam (Valium.) 5 mg PO TID PRN PRN Reason: Muscle Spasm Last Admin: 07/29/17 10:42 Dose: 5 mg Diphenhydramine HCl (Benadryl) 50 mg IVPUSH Q6H PRN PRN Reason: ITCHING Duloxetine HCl (Cymbalta) 30 mg PO DAILY [facility] Last Admin: 07/29/17 08:26 Dose: 30 mg Fentanyl (Sublimaze) 25 mcg IVPUSH Q1H PRN PRN Reason: Pain (moderate 4-6) Last Admin: 07/29/17 03:59 Dose: 25 mcg Ferrous Sulfate (Ferrous Sulfate) 325 mg PO BID [facility] Last Admin: 07/29/17 09:16 Dose: 325 mg Fludrocortisone Acetate (Florinef) 0.1 mg PO WITHBREAKFAST [facility] Last Admin: 07/29/17 08:26 Dose: 0.1 mg Fluticasone Propionate (Flonase) 0 gm NASBOTH DAILY PRN PRN Reason: Allergies Hydroxyzine HCl (Vistaril) 50 mg IM Q4H PRN PRN Reason: Nausea Last Admin: 07/29/17 05:09 Dose: 50 mg Dextrose/Sodium Chloride (Dextrose 5%-1/2 Ns) 1,000 mls @ 75 mls/hr IV ASDIRECTED [facility] Last Admin: 07/29/17 10:32 Dose: 75 mls/hr Cefazolin Sodium 2 gm/ Sodium (Chloride) 50 mls @ 100 mls/hr IV Q8H [facility] Last Admin: 07/29/17 10:32 Dose: 100 mls/hr Metronidazole 500 mg/ Premix 100 mls @ 100 mls/hr IV Q8H [facility] Last Admin: 07/29/17 09:16 Dose: 100 mls/hr Lovastatin (Mevacor) 80 mg PO BEDTIME [facility] Naloxone HCl (Narcan) 0.1 mg IVPUSH Q5M PRN PRN Reason: RESP RATE LESS THAN 6/MINUTE Naloxone HCl (Narcan) 0.4 mg IV ASDIRECTED PRN PRN Reason: ITCHING Ondansetron HCl (Zofran) 4 - 8 mg IVPUSH Q4H PRN PRN Reason: Nausea/Vomiting Last Admin: 07/29/17 05:03 Dose: 4 mg Potassium Chloride (Klor-Con M20) 40 meq PO ONETIME ONE Stop: 07/29/17 18:01 Promethazine HCl (Phenergan) 25 mg IM Q6H PRN PRN Reason: Nausea Last Admin: 07/26/17 13:16 Dose: 25 mg Rivaroxaban (Xarelto) 20 mg PO DAILY [facility] Last Admin: 07/29/17 08:26 Dose: 20 mg Discontinued Medications Albuterol/Ipratropium (Duoneb 3.0-0.5 Mg/3 Ml) 3 ml NEB Q4H PRN PRN Reason: Wheezing Aspirin (Halfprin) 81 mg PO DAILY [facility] Last Admin: 07/26/17 11:27 Dose: 81 mg Bisacodyl (Dulcolax) 10 mg PO BID [facility] Last Admin: 07/26/17 11:26 Dose: 10 mg Dexamethasone (Dexamethasone) Confirm Administered Dose 4 mg .ROUTE .STK-MED ONE Stop: 07/25/17 07:18 Diphenhydramine HCl (Benadryl) 50 mg IVPUSH Q4H PRN PRN Reason: Itching Last Admin: 07/25/17 12:52 Dose: 50 mg Docusate Sodium (Colace) 100 mg PO BID PRN PRN Reason: Constipation Duloxetine HCl (Cymbalta) 30 mg PO DAILY [facility] Last Admin: 07/26/17 11:27 Dose: 30 mg Enoxaparin Sodium (Lovenox) 40 mg SUBCUT BEDTIME [facility] Last Admin: 07/27/17 20:01 Dose: 40 mg Fentanyl (Sublimaze) Confirm Administered Dose 250 mcg .ROUTE .STK-MED ONE Stop: 07/25/17 07:18 Fludrocortisone Acetate (Florinef) 0.1 mg PO WITHBREAKFAST [facility] Last Admin: 07/26/17 11:27 Dose: 0.1 mg Glycopyrrolate (Robinul) Confirm Administered Dose 1 mg .ROUTE .STK-MED ONE Stop: 07/25/17 07:18 Metronidazole 500 mg/ Premix 100 mls @ 100 mls/hr IV ONETIME ONE Stop: 07/25/17 07:59 Last Admin: 07/25/17 09:11 Dose: 100 mls/hr Sodium Chloride (Normal Saline) 1,000 mls @ 75 mls/hr IV ASDIRECTED [facility] Last Admin: 07/26/17 04:43 Dose: 75 mls/hr Cefazolin Sodium 2 gm/ Sodium (Chloride) 50 mls @ 100 mls/hr IV ONETIME ONE Stop: 07/25/17 07:29 Last Admin: 07/25/17 09:11 Dose: 100 mls/hr Fentanyl 2,500 mcg/ Sodium (Chloride) 250 mls @ 0 mls/hr EPIDUR TITRATE [facility]; Titrate PRN Reason: Protocol Last Admin: 07/26/17 04:05 Dose: 12 ml/hr, 12 mls/hr Lactated Ringer's (Ringers, Lactated) Confirm Administered Dose 1,000 mls @ as directed .ROUTE .STK-MED ONE Stop: 07/25/17 09:55 Acetaminophen 1,000 mg/ Premix 100 mls @ 400 mls/hr IV Q6H PRN PRN Reason: Pain (severe 7-10) Stop: 07/26/17 12:31 Last Admin: 07/25/17 22:39 Dose: 400 mls/hr Naloxone HCl 0.4 mg/ Sodium (Chloride) 1,001 mls @ 75 mls/hr IV ASDIRECTED ONE Stop: 07/26/17 04:20 Last Admin: 07/25/17 15:02 Dose: 75 mls/hr Sodium Chloride (Normal Saline) 1,000 mls @ 125 mls/hr IV ASDIRECTED [facility] Last Admin: 07/27/17 01:24 Dose: 125 mls/hr Acetaminophen 1,000 mg/ Premix 100 mls @ 400 mls/hr IV Q6H PRN PRN Reason: Pain Stop: 07/27/17 20:09 Last Admin: 07/27/17 19:58 Dose: 400 mls/hr Potassium Chloride 20 meq/Lidocaine HCl 2 ml/ Sodium Chloride 112 mls @ 56 mls/ hr IV Q2H [facility] Stop: 07/28/17 14:59 Last Admin: 07/28/17 13:58 Dose: 56 mls/hr Meropenem (Merrem) Confirm Administered Dose 500 mg .ROUTE .STK-MED ONE Stop: 07/25/17 11:05 Last Admin: 07/25/17 11:11 Dose: 500 mg Metoprolol Tartrate (Lopressor) 5 mg IVPUSH Q1H PRN PRN Reason: Hypertension Last Admin: 07/27/17 02:31 Dose: 5 mg Midodrine (Midodrine) 10 mg PO TID [facility] Last Admin: 07/26/17 14:14 Dose: 10 mg Neostigmine Methylsulfate (Neostigmine) Confirm Administered Dose 5 mg .ROUTE .STK-MED ONE Stop: 07/25/17 07:18 Verify Scop Patch 0 each TOP DAILY [facility] Last Admin: 07/28/17 08:31 Dose: Not Given Ondansetron HCl (Zofran) Confirm Administered Dose 4 mg .ROUTE .STK-MED ONE Stop: 07/25/17 07:18 Pantoprazole Sodium (Protonix) 40 mg PO ACBREAKFAST [facility] Last Admin: 07/26/17 11:27 Dose: 40 mg Potassium Chloride (Klor-Con M20) 40 meq PO ONETIME ONE Stop: 07/29/17 12:01 Propofol (Diprivan 20 Ml) Confirm Administered Dose 200 mg .ROUTE .STK-MED ONE Stop: 07/25/17 07:18 Rocuronium [place] (Zemuron) Confirm Administered Dose 50 mg .ROUTE .STK-MED ONE Stop: 07/25/17 07:18 Scopolamine (Transderm-Scop) 1.5 mg TOP Q72H [facility] Stop: 07/28/17 04:00 Last Admin: 07/25/17 15:00 Dose: 1.5 mg Succinylcholine Chloride (Quelicin) Confirm Administered Dose 200 mg .ROUTE .STK -MED ONE Stop: 07/25/17 07:18 - Exam Quality Assessment: DVT Prophylaxis General: Alert, Oriented, Cooperative, Mild Distress Lungs: Clear to Auscultation, Normal Respiratory Effort Cardiovascular: Regular Rate, Regular Rhythm, No Murmurs GI/Abdominal Exam: Normal Bowel Sounds, Soft, No Organomegaly, No Distention, Tender. No: Guarding, Rigid, Rebound Extremities: Non-Tender, No Pedal Edema Skin: Warm, Dry Consult PN Assessment/Plan Procedures: Procedures AIRWAY INHALATION TREATMENT (10/28/14) ASSAY OF ACETAMINOPHEN (05/22/14) ASSAY OF CK (CPK) (10/18/15) ASSAY OF ETHANOL (05/22/14) ASSAY OF LACTIC ACID (07/23/16) ASSAY OF LIPASE (07/23/16) ASSAY OF MAGNESIUM (07/23/16) ASSAY OF NATRIURETIC PEPTIDE (10/18/15) ASSAY OF SALICYLATE (05/22/14) ASSAY OF TROPONIN QUANT (05/20/17) BLOOD CULTURE FOR BACTERIA (10/28/14) BLOOD GASES ANY COMBINATION (07/23/16) C-REACTIVE PROTEIN (07/03/16) CHEST X-RAY 1 VIEW FRONTAL (01/31/17) CHEST X-RAY 2VW FRONTAL&LATL (05/20/17) COMP SCREEN MAMMOGRAM ADD-ON (03/01/15) COMPLETE CBC AUTOMATED (07/23/16) COMPLETE CBC W/AUTO DIFF WBC (05/20/17) COMPREHEN METABOLIC PANEL (05/20/17) CREATINE MB FRACTION (05/20/17) CT ABD & PELV W/CONTRAST (07/03/16) CT ABD & PELVIS W/O CONTRAST (03/17/17) CT ANGIOGRAPHY CHEST (07/23/16) CT HEAD/BRAIN W/O DYE (01/03/15) CT THORAX W/O DYE (04/19/15) CULTURE SCREEN ONLY (12/12/14) EGD BIOPSY SINGLE/MULTIPLE (12/12/14) ELECTROCARDIOGRAM TRACING (05/20/17) EMERGENCY DEPT VISIT (05/20/17) EMERGENCY DEPT VISIT (01/31/17) EMERGENCY DEPT VISIT (03/28/16) EMERGENCY DEPT VISIT (02/09/16) EMERGENCY DEPT VISIT (11/13/15) EMERGENCY DEPT VISIT (10/18/15) EMERGENCY DEPT VISIT (08/16/15) EMERGENCY DEPT VISIT (06/26/15) EMERGENCY DEPT VISIT (10/28/14) EMERGENCY DEPT VISIT (07/31/14) EMERGENCY DEPT VISIT (06/23/14) EMERGENCY DEPT VISIT (05/22/14) EVALUATION OF WHEEZING (11/28/14) EXTRACRANIAL BILAT STUDY (06/17/17) EXTREMITY STUDY (06/26/15) FIBRIN DEGRADATION QUANT (06/26/15) HYDRATE IV INFUSION ADD-ON (06/23/14) HYDRATION IV INFUSION INIT (05/22/14) INJECT SPINE LUMBAR/SACRAL (06/05/16) INJECT TRIGGER POINTS 3/> (06/05/16) MANUAL THERAPY 1/> REGIONS (02/05/16) METABOLIC PANEL TOTAL CA (11/28/16) MRI BRAIN STEM W/O & W/DYE (01/11/15) MRI JOINT UPR EXTREM W/O DYE (05/29/15) MRI LUMBAR SPINE W/O DYE (06/02/14) MRI NECK SPINE W/O DYE (03/01/15) NEUROMUSCULAR REEDUCATION (02/05/16) OBSERV/HOSP SAME DATE (05/22/14) OT EVALUATION (03/24/15) PROTHROMBIN TIME (02/09/16) PT EVALUATION (02/05/16) ROUTINE VENIPUNCTURE (05/20/17) SKIN SPLT GRFT T/A/L ADD-ON (11/28/16) SKIN SPLT GRFT TRNK/ARM/LEG (11/28/16) THER/PROPH/DIAG INJ IV PUSH (07/03/16) THER/PROPH/DIAG INJ SC/IM (11/13/15) THROMBOPLASTIN TIME PARTIAL (02/18/15) TTE W/DOPPLER COMPLETE (07/03/17) TX/PRO/DX INJ NEW DRUG ADDON (07/03/16) ULTRASOUND THERAPY (02/05/16) URINALYSIS AUTO W/SCOPE (05/20/17) WITHDRAWAL OF ARTERIAL BLOOD (07/23/16) WOUND PREP ADDL 100 CM (11/28/16) WOUND PREP TRK/ARM/LEG (11/28/16) X-RAY EXAM HIP UNI 2-3 VIEWS (11/13/15) X-RAY EXAM L-2 SPINE 4/>VWS (07/31/14) X-RAY EXAM OF ABDOMEN (07/23/16) X-RAY EXAM OF HIP (07/31/14) X-RAY EXAM OF SHOULDER (02/09/16) X-RAY EXAM OF WRIST (02/09/16) Problem List Initiated/Reviewed/Updated: Yes My Orders Last 24 Hours: My Active Orders 07/29/17 18:00 Potassium Chloride [Klor-Con M20] 40 meq PO ONETIME ONE Plan: ASSESSMENT AND PLAN Accelerated hypertension - pressures have been good over the past 48 hours -Currently no indication for treatment his blood pressure is trending down -Consider treatment for blood pressures above 180 systolic or if symptoms, IV hydralazine 5-10 mg every 4-6 hours could be considered if metoprolol is ineffective -Restart home medications Profound fatigue - improved over the past few days with changes in medical therapy -Discontinue scopolamine patch -Restart home medications Status post colostomy takedown - clinically doing well but postop course has been complicated by an ileus which seems to be resolving. -Postop cares per Dr. Keyes
[2017-07-29] MEDS: Acetaminophen/HYDROcodone 325-5 MG Tab PO PRN ×2 (15:38→20:50)
--- NOTE | 2017-07-29 21:20 | PCM.SN ---
- Free Text/Narrative Note: time: 21:15; s/o: call from 2 [facility]; Mrs. Vick is requesting Trazadone and Ambien. reports take this medication daily. a: insomnia p: restart Ambien 5mg every hs prn insomnia, Trazadone 150mg po every hs . continue present plan of care.
[2017-07-29] MEDS ORDERED: traZODone 50 MG Tab ONE (21:35)
[2017-07-29] MEDS: VERIFY SCOP PATCH TOP SCH (21:56)
[2017-07-29] MEDS: Zolpidem 5 MG Tab PO PRN (22:01)
[2017-07-29] MEDS: traZODone 50 MG Tab PO SCH (22:01)
[2017-07-30] MEDS: metroNIDAZOLE/Normal Saline 500 MG in Premix Bag 1 BAG IV SCH ×3 (01:27→16:16)
[2017-07-30] MEDS: Dextrose 5%-0.45% NaCl 1,000 ML IV SCH ×2 (01:28→20:16)
[2017-07-30] MEDS: ceFAZolin 2 GM in Sodium Chloride 0.9% 50 ML IV SCH ×3 (02:56→17:47)
[2017-07-30] MEDS: Bacitracin Oint 28.35 GM Tube TOP SCH (08:30)
[2017-07-30] MEDS: Acetaminophen/HYDROcodone 325-5 MG Tab PO PRN ×3 (09:07→22:09)
--- NOTE | 2017-07-30 09:10 | PN ---
DATE OF SERVICE: 07/30/2017 SUBJECTIVE: The patient is doing well. Pain is well controlled. No nausea, vomiting, shortness of breath, or chest pain. She is having bowel movements. OBJECTIVE: VITAL SIGNS: Stable, but still has a low-grade fever. CARDIOVASCULAR: Regular rhythm and rate. RESPIRATORY: Lungs clear to consultation bilaterally. ABDOMEN: Bowel sounds positive. Skin graft remains marginal but stable. ASSESSMENT: Status post ostomy takedown. PLAN: The patient is nearing discharge. She has an elevated temperature, but has been placed on antibiotics and her white blood cell count has decreased overnight. As far as the graft is concerned, no evidence of infection or imminent failure, but still shows some ischemia consistent with the expected postoperative course. We will continue to monitor the patient overnight. Anticipate discharge, unless there is a complication noted, in the next 24 to 48 hours. Jhonatan Keyes MD /[id number]
--- NOTE | 2017-07-30 09:13 | PN ---
DATE OF SERVICE: 07/29/2017 SUBJECTIVE: The patient continues to improve. She is now passing gas. She is having bowel movements. OBJECTIVE: VITAL SIGNS: Stable. Low-grade fever. CARDIOVASCULAR: Regular rhythm and rate. RESPIRATORY: Lungs clear to auscultation bilaterally. ABDOMEN: Skin graft still shows some areas of ischemia, however, not worsening. ASSESSMENT: Status post ostomy takedown. PLAN: We will start the patient on antibiotics. We will continue to work towards discharge. We will advance her diet as tolerated and resume all home medications today. Jhonatan Keyes MD /[id number]
--- NOTE | 2017-07-30 09:32 | CR ---
Abdomen. Findings: Surgical drain. Air-filled small bowel loops which are nondilated.
[2017-07-30] MEDS: Fludrocortisone 0.1 MG Tab PO SCH (11:38)
[2017-07-30] MEDS: Rivaroxaban 10 MG Tab PO SCH (11:38)
[2017-07-30] MEDS: DULoxetine 30 MG Cap PO SCH (11:38)
[2017-07-30] MEDS: Ferrous Sulfate 325 MG Tab PO SCH ×2 (11:39→20:18)
[2017-07-30] MEDS: Metoprolol Tartrate 25 MG Tab PO SCH ×3 (11:39→22:11)
--- NOTE | 2017-07-30 13:57 | PCM.PN ---
- General Info Date of Service: 07/30/17 Subjective Update: This patient has remained stable since yesterday, currently tolerating a soft diet. Heart rate has been increased and blood pressure trending somewhat high. She is been afebrile and white count continues to slowly improve. She feels well denies any symptoms of shortness of breath chest pain or pressure. - Review of Systems General: Denies: Fever, Chills Pulmonary: Reports: No Symptoms Cardiovascular: Reports: No Symptoms Gastrointestinal: Reports: Abdominal Pain. Denies: Decreased Appetite, Difficulty Swallowing, Nausea, Vomiting - Patient Data Vitals - Most Recent: Last Vital Signs Temp 99.7 F 07/30/17 11:00 Pulse 112 H 07/30/17 11:39 Resp 19 07/30/17 11:00 BP 155/65 H 07/30/17 11:39 Pulse Ox 92 L 07/30/17 11:00 Orthostatic Blood Pressure [ 152/90 Standing] Orthostatic Blood Pressure [ 160/100 Sitting] Orthostatic Blood Pressure [ 172/94 Supine] Weight - Most Recent: 199 lb 15.983 oz I&O - Last 24 Hours: Intake & Output 07/29/17 07/30/17 07/30/17 22:59 06:59 14:59 Intake Total 1651 1335 550 Output Total 425 515 Balance 1226 820 550 Lab Results Last 24 Hours: Laboratory Results - last 24 hr 07/30/17 07/30/17 Range/Units 05:11 06:12 WBC 11.8 H (4.5-11.0) K/uL RBC 4.14 (3.30-5.50) M/uL Hgb 12.1 (12.0-15.0) g/dL Hct 35.8 L (36.0-48.0) % MCV 87 (80-98) fL MCH 29 (27-31) pg MCHC 34 (32-36) % Plt Count 391 (150-400) K/uL Sodium 141 (140-148) mmol/L Potassium 3.3 L (3.6-5.2) mmol/L Chloride 106 (100-108) mmol/L Carbon Dioxide 27 (21-32) mmol/L Anion Gap 11.3 (5.0-14.0) mmol/L BUN 7 (7-18) mg/dL Creatinine 0.7 (0.6-1.0) mg/dL Est Cr Clr Drug Dosing 76.78 mL/min Estimated GFR (MDRD) > 60 (>60) Glucose 138 H (74-106) mg/dL Calcium 9.4 (8.5-10.1) mg/dL Med Orders - Current: Current Medications Acetaminophen (Tylenol) 650 mg PO Q6H PRN PRN Reason: Pain/Fever Last Admin: 07/29/17 08:31 Dose: 650 mg Hydrocodone Bitart/Acetaminophen ([place] 325-5 Mg) 1 - 2 tab PO Q4H PRN PRN Reason: Pain Last Admin: 07/30/17 09:07 Dose: 2 tab Albuterol/Ipratropium (Duoneb 3.0-0.5 Mg/3 Ml) 3 ml NEB Q4H PRN PRN Reason: Wheezing Alvimopan (Entereg) 12 mg PO BID [facility] Stop: 08/01/17 21:01 Last Admin: 07/30/17 11:38 Dose: 12 mg Bacitracin (Bacitracin Oint) 0 gm TOP ASDIRECTED [facility] Last Admin: 07/30/17 08:30 Dose: 1 applic Benzocaine/Menthol (Cepacol Sore Throat) 1 lozenge MUCMEM Q1H PRN PRN Reason: Sore Throat Diazepam (Valium.) 5 mg PO TID PRN PRN Reason: Muscle Spasm Last Admin: 07/29/17 20:50 Dose: 5 mg Diphenhydramine HCl (Benadryl) 50 mg IVPUSH Q6H PRN PRN Reason: ITCHING Duloxetine HCl (Cymbalta) 30 mg PO DAILY [facility] Last Admin: 07/30/17 11:38 Dose: 30 mg Fentanyl (Sublimaze) 25 mcg IVPUSH Q1H PRN PRN Reason: Pain (moderate 4-6) Last Admin: 07/29/17 03:59 Dose: 25 mcg Ferrous Sulfate (Ferrous Sulfate) 325 mg PO BID [facility] Last Admin: 07/30/17 11:39 Dose: 325 mg Fludrocortisone Acetate (Florinef) 0.1 mg PO WITHBREAKFAST [facility] Last Admin: 07/30/17 11:38 Dose: 0.1 mg Fluticasone Propionate (Flonase) 0 gm NASBOTH DAILY PRN PRN Reason: Allergies Hydroxyzine HCl (Vistaril) 50 mg IM Q4H PRN PRN Reason: Nausea Last Admin: 07/29/17 05:09 Dose: 50 mg Dextrose/Sodium Chloride (Dextrose 5%-1/2 Ns) 1,000 mls @ 75 mls/hr IV ASDIRECTED [facility] Last Admin: 07/30/17 01:28 Dose: 75 mls/hr Cefazolin Sodium 2 gm/ Sodium (Chloride) 50 mls @ 100 mls/hr IV Q8H [facility] Last Admin: 07/30/17 11:32 Dose: 100 mls/hr Metronidazole 500 mg/ Premix 100 mls @ 100 mls/hr IV Q8H [facility] Last Admin: 07/30/17 09:03 Dose: 100 mls/hr Lovastatin (Mevacor) 80 mg PO BEDTIME [facility] Last Admin: 07/29/17 20:52 Dose: 80 mg Metoprolol Tartrate (Lopressor) 25 mg PO Q6H [facility] Last Admin: 07/30/17 11:39 Dose: 25 mg Naloxone HCl (Narcan) 0.1 mg IVPUSH Q5M PRN PRN Reason: RESP RATE LESS THAN 6/MINUTE Naloxone HCl (Narcan) 0.4 mg IV ASDIRECTED PRN PRN Reason: ITCHING Ondansetron HCl (Zofran) 4 - 8 mg IVPUSH Q4H PRN PRN Reason: Nausea/Vomiting Last Admin: 07/29/17 05:03 Dose: 4 mg Potassium Chloride (Klor-Con M20) 40 meq PO ONETIME ONE Stop: 07/30/17 13:55 Potassium Chloride (Klor-Con M20) 40 meq PO ONETIME ONE Stop: 07/30/17 19:01 Promethazine HCl (Phenergan) 25 mg IM Q6H PRN PRN Reason: Nausea Last Admin: 07/26/17 13:16 Dose: 25 mg Rivaroxaban (Xarelto) 20 mg PO DAILY [facility] Last Admin: 07/30/17 11:38 Dose: 20 mg Trazodone HCl (Trazodone) 150 mg PO BEDTIME [facility] Last Admin: 07/29/17 22:01 Dose: 150 mg Zolpidem Tartrate (Ambien) 5 mg PO BEDTIME PRN PRN Reason: Sleep Last Admin: 07/29/17 22:01 Dose: 5 mg Discontinued Medications Albuterol/Ipratropium (Duoneb 3.0-0.5 Mg/3 Ml) 3 ml NEB Q4H PRN PRN Reason: Wheezing Aspirin (Halfprin) 81 mg PO DAILY [facility] Last Admin: 07/26/17 11:27 Dose: 81 mg Bisacodyl (Dulcolax) 10 mg PO BID [facility] Last Admin: 07/26/17 11:26 Dose: 10 mg Dexamethasone (Dexamethasone) Confirm Administered Dose 4 mg .ROUTE .STK-MED ONE Stop: 07/25/17 07:18 Diphenhydramine HCl (Benadryl) 50 mg IVPUSH Q4H PRN PRN Reason: Itching Last Admin: 07/25/17 12:52 Dose: 50 mg Docusate Sodium (Colace) 100 mg PO BID PRN PRN Reason: Constipation Duloxetine HCl (Cymbalta) 30 mg PO DAILY [facility] Last Admin: 07/26/17 11:27 Dose: 30 mg Enoxaparin Sodium (Lovenox) 40 mg SUBCUT BEDTIME [facility] Last Admin: 07/27/17 20:01 Dose: 40 mg Fentanyl (Sublimaze) Confirm Administered Dose 250 mcg .ROUTE .STK-MED ONE Stop: 07/25/17 07:18 Fludrocortisone Acetate (Florinef) 0.1 mg PO WITHBREAKFAST [facility] Last Admin: 07/26/17 11:27 Dose: 0.1 mg Glycopyrrolate (Robinul) Confirm Administered Dose 1 mg .ROUTE .STK-MED ONE Stop: 07/25/17 07:18 Metronidazole 500 mg/ Premix 100 mls @ 100 mls/hr IV ONETIME ONE Stop: 07/25/17 07:59 Last Admin: 07/25/17 09:11 Dose: 100 mls/hr Sodium Chloride (Normal Saline) 1,000 mls @ 75 mls/hr IV ASDIRECTED [facility] Last Admin: 07/26/17 04:43 Dose: 75 mls/hr Cefazolin Sodium 2 gm/ Sodium (Chloride) 50 mls @ 100 mls/hr IV ONETIME ONE Stop: 07/25/17 07:29 Last Admin: 07/25/17 09:11 Dose: 100 mls/hr Fentanyl 2,500 mcg/ Sodium (Chloride) 250 mls @ 0 mls/hr EPIDUR TITRATE [facility]ANEY; Titrate PRN Reason: Protocol Last Admin: 07/26/17 04:05 Dose: 12 ml/hr, 12 mls/hr Lactated Ringer's (Ringers, Lactated) Confirm Administered Dose 1,000 mls @ as directed .ROUTE .STK-MED ONE Stop: 07/25/17 09:55 Acetaminophen 1,000 mg/ Premix 100 mls @ 400 mls/hr IV Q6H PRN PRN Reason: Pain (severe 7-10) Stop: 07/26/17 12:31 Last Admin: 07/25/17 22:39 Dose: 400 mls/hr Naloxone HCl 0.4 mg/ Sodium (Chloride) 1,001 mls @ 75 mls/hr IV ASDIRECTED ONE Stop: 07/26/17 04:20 Last Admin: 07/25/17 15:02 Dose: 75 mls/hr Sodium Chloride (Normal Saline) 1,000 mls @ 125 mls/hr IV ASDIRECTED [facility] Last Admin: 07/27/17 01:24 Dose: 125 mls/hr Acetaminophen 1,000 mg/ Premix 100 mls @ 400 mls/hr IV Q6H PRN PRN Reason: Pain Stop: 07/27/17 20:09 Last Admin: 07/27/17 19:58 Dose: 400 mls/hr Potassium Chloride 20 meq/Lidocaine HCl 2 ml/ Sodium Chloride 112 mls @ 56 mls/ hr IV Q2H [facility] Stop: 07/28/17 14:59 Last Admin: 07/28/17 13:58 Dose: 56 mls/hr Meropenem (Merrem) Confirm Administered Dose 500 mg .ROUTE .STK-MED ONE Stop: 07/25/17 11:05 Last Admin: 07/25/17 11:11 Dose: 500 mg Metoprolol Tartrate (Lopressor) 5 mg IVPUSH Q1H PRN PRN Reason: Hypertension Last Admin: 07/27/17 02:31 Dose: 5 mg Midodrine (Midodrine) 10 mg PO TID [facility] Last Admin: 07/26/17 14:14 Dose: 10 mg Neostigmine Methylsulfate (Neostigmine) Confirm Administered Dose 5 mg .ROUTE .STK-MED ONE Stop: 07/25/17 07:18 Verify Scop Patch 0 each TOP DAILY [facility] Last Admin: 07/29/17 21:56 Dose: Not Given Ondansetron HCl (Zofran) Confirm Administered Dose 4 mg .ROUTE .STK-MED ONE Stop: 07/25/17 07:18 Pantoprazole Sodium (Protonix) 40 mg PO ACBREAKFAST [facility] Last Admin: 07/26/17 11:27 Dose: 40 mg Potassium Chloride (Klor-Con M20) 40 meq PO ONETIME ONE Stop: 07/29/17 12:01 Last Admin: 07/29/17 12:09 Dose: 40 meq Potassium Chloride (Klor-Con M20) 40 meq PO ONETIME ONE Stop: 07/29/17 18:01 Last Admin: 07/29/17 17:56 Dose: 40 meq Propofol (Diprivan 20 Ml) Confirm Administered Dose 200 mg .ROUTE .STK-MED ONE Stop: 07/25/17 07:18 Rocuronium [place] (Zemuron) Confirm Administered Dose 50 mg .ROUTE .STK-MED ONE Stop: 07/25/17 07:18 Scopolamine (Transderm-Scop) 1.5 mg TOP Q72H [facility] Stop: 07/28/17 04:00 Last Admin: 07/25/17 15:00 Dose: 1.5 mg Succinylcholine Chloride (Quelicin) Confirm Administered Dose 200 mg .ROUTE .STK -MED ONE Stop: 07/25/17 07:18 Trazodone HCl (Trazodone) Confirm Administered Dose 100 mg .ROUTE .STK-MED ONE Stop: 07/29/17 21:36 Last Admin: 07/29/17 21:55 Dose: Not Given - Exam Quality Assessment: DVT Prophylaxis General: Alert, Oriented, Cooperative, No Acute Distress Lungs: Clear to Auscultation, Normal Respiratory Effort Cardiovascular: Regular Rhythm, No Murmurs, Tachycardia. No: Irregular Rhythm, Bradycardia GI/Abdominal Exam: Normal Bowel Sounds, Soft, No Organomegaly, Tender. No: Distended, Guarding, Rigid, Rebound Extremities: Non-Tender, No Pedal Edema Skin: Warm, Dry - Problem List Review Problem List Initiated/Reviewed/Updated: Yes - My Orders Last 24 Hours: My Active Orders 07/30/17 10:00 Metoprolol Tartrate [Lopressor] 25 mg PO Q6H 07/30/17 13:54 Potassium Chloride [Klor-Con M20] 40 meq PO ONETIME ONE 07/30/17 19:00 Potassium Chloride [Klor-Con M20] 40 meq PO ONETIME ONE 07/31/17 05:00 BASIC METABOLIC PANEL,BMP [CHEM] Timed CBC WITH AUTO DIFF [HEME] Timed - Plan Plan:: ASSESSMENT AND PLAN Accelerated hypertension - pressures have been mildly to moderately elevated over the past 24 hours, associated with tachycardia -Metoprolol 25 mg by mouth every 6 hours Profound fatigue - improved over the past few days with changes in medical therapy Status post colostomy takedown - clinically doing well -Postop cares per Dr. Keyes
[2017-07-30] MEDS ORDERED: Potassium Chloride 20 MEQ Tab.ER PO ONE ×2 (14:30→20:00)
[2017-07-30] MEDS: Diazepam 5 MG Tab PO PRN ×2 (15:40→22:09)
[2017-07-30] MEDS: Zolpidem 5 MG Tab PO PRN (22:09)
[2017-07-30] MEDS: traZODone 50 MG Tab PO SCH (22:09)
[2017-07-30] MEDS: Lidocaine 5% 700 MG Patch TOP SCH (22:27)
--- NOTE | 2017-07-30 23:02 | PCM.SN ---
- Free Text/Narrative Note: time: 22:25 call from 2 [facility]; requesting Lidocaine patch for back pain a; back pain P: Lidocaine patch 5% apply 12 hours one, 12 hours off. continue present plan of care.
[2017-07-31] MEDS: metroNIDAZOLE/Normal Saline 500 MG in Premix Bag 1 BAG IV SCH ×3 (01:55→17:15)
[2017-07-31] MEDS: ceFAZolin 2 GM in Sodium Chloride 0.9% 50 ML IV SCH ×3 (02:56→18:52)
[2017-07-31] MEDS: Metoprolol Tartrate 25 MG Tab PO SCH (03:02)
[2017-07-31] MEDS: Fludrocortisone 0.1 MG Tab PO SCH (09:58)
[2017-07-31] MEDS: DULoxetine 30 MG Cap PO SCH (09:58)
[2017-07-31] MEDS: Ferrous Sulfate 325 MG Tab PO SCH ×2 (09:58→20:20)
[2017-07-31] MEDS: Rivaroxaban 10 MG Tab PO SCH (09:59)
[2017-07-31] MEDS: Acetaminophen/HYDROcodone 325-5 MG Tab PO PRN ×3 (10:03→22:30)
--- NOTE | 2017-07-31 12:13 | PCM.PN ---
- General Info Date of Service: 07/31/17 Subjective Update: Ms. Vick has remained stable over the past 24 hours, heart rate and blood pressure has improved with addition of metoprolol. She is been afebrile, white blood cell count is modestly increased from yesterday. Continues to experience abdominal pain but has been able to be up in the chair and walking in the halls. Functional Status: Reports: Pain Controlled, Tolerating Diet - Review of Systems General: Reports: Weakness. Denies: Fever, Chills Pulmonary: Reports: No Symptoms Cardiovascular: Reports: No Symptoms Gastrointestinal: Reports: Abdominal Pain, Flatus. Denies: Diarrhea, Difficulty Swallowing, Nausea, Vomiting - Patient Data Vitals - Most Recent: Last Vital Signs Temp 98.7 F 07/31/17 10:25 Pulse 106 H 07/31/17 10:25 Resp 18 07/31/17 10:25 BP 137/74 07/31/17 10:25 Pulse Ox 96 07/31/17 10:25 Orthostatic Blood Pressure [ 152/90 Standing] Orthostatic Blood Pressure [ 160/100 Sitting] Orthostatic Blood Pressure [ 172/94 Supine] Weight - Most Recent: 199 lb 15.983 oz I&O - Last 24 Hours: Intake & Output 07/30/17 07/31/17 07/31/17 22:59 06:59 14:59 Intake Total 1674 1399 Output Total 1285 1135 620 Balance 389 264 -620 Lab Results Last 24 Hours: Laboratory Results - last 24 hr 07/31/17 07/31/17 Range/Units 04:00 04:00 WBC 14.0 H (4.5-11.0) K/uL RBC 3.75 (3.30-5.50) M/uL Hgb 10.7 L (12.0-15.0) g/dL Hct 32.6 L (36.0-48.0) % MCV 87 (80-98) fL MCH 29 (27-31) pg MCHC 33 (32-36) % Plt Count 484 H (150-400) K/uL Neut % (Auto) 80 H (36-66) % Lymph % (Auto) 9 L (24-44) % [place] % (Auto) 8 H (2-6) % Eos % (Auto) 3 (2-4) % Baso % (Auto) 0 (0-1) % Sodium 142 (140-148) mmol/L Potassium 3.7 (3.6-5.2) mmol/L Chloride 108 (100-108) mmol/L Carbon Dioxide 25 (21-32) mmol/L Anion Gap 9.3 (5.0-14.0) mmol/L BUN 6 L (7-18) mg/dL Creatinine 0.6 (0.6-1.0) mg/dL Est Cr Clr Drug Dosing 89.58 mL/min Estimated GFR (MDRD) > 60 (>60) Glucose 117 H (74-106) mg/dL Calcium 9.3 (8.5-10.1) mg/dL Med Orders - Current: Current Medications Acetaminophen (Tylenol) 650 mg PO Q6H PRN PRN Reason: Pain/Fever Last Admin: 07/29/17 08:31 Dose: 650 mg Hydrocodone Bitart/Acetaminophen ([place] 325-5 Mg) 1 - 2 tab PO Q4H PRN PRN Reason: Pain Last Admin: 07/31/17 10:03 Dose: 2 tab Albuterol/Ipratropium (Duoneb 3.0-0.5 Mg/3 Ml) 3 ml NEB Q4H PRN PRN Reason: Wheezing Alvimopan (Entereg) 12 mg PO BID [facility] Stop: 08/01/17 21:01 Last Admin: 07/31/17 09:58 Dose: 12 mg Bacitracin (Bacitracin Oint) 0 gm TOP ASDIRECTED [facility] Last Admin: 07/30/17 08:30 Dose: 1 applic Benzocaine/Menthol (Cepacol Sore Throat) 1 lozenge MUCMEM Q1H PRN PRN Reason: Sore Throat Diazepam (Valium.) 5 mg PO TID PRN PRN Reason: Muscle Spasm Last Admin: 07/30/17 22:09 Dose: 5 mg Diphenhydramine HCl (Benadryl) 50 mg IVPUSH Q6H PRN PRN Reason: ITCHING Duloxetine HCl (Cymbalta) 30 mg PO DAILY [facility] Last Admin: 07/31/17 09:58 Dose: 30 mg Fentanyl (Sublimaze) 25 mcg IVPUSH Q1H PRN PRN Reason: Pain (moderate 4-6) Last Admin: 07/29/17 03:59 Dose: 25 mcg Ferrous Sulfate (Ferrous Sulfate) 325 mg PO BID [facility] Last Admin: 07/31/17 09:58 Dose: 325 mg Fludrocortisone Acetate (Florinef) 0.1 mg PO WITHBREAKFAST [facility] Last Admin: 07/31/17 09:58 Dose: 0.1 mg Fluticasone Propionate (Flonase) 0 gm NASBOTH DAILY PRN PRN Reason: Allergies Hydroxyzine HCl (Vistaril) 50 mg IM Q4H PRN PRN Reason: Nausea Last Admin: 07/29/17 05:09 Dose: 50 mg Dextrose/Sodium Chloride (Dextrose 5%-1/2 Ns) 1,000 mls @ 75 mls/hr IV ASDIRECTED [facility] Last Admin: 07/30/17 20:16 Dose: 75 mls/hr Cefazolin Sodium 2 gm/ Sodium (Chloride) 50 mls @ 100 mls/hr IV Q8H [facility] Last Admin: 07/31/17 10:04 Dose: 100 mls/hr Metronidazole 500 mg/ Premix 100 mls @ 100 mls/hr IV Q8H [facility] Last Admin: 07/31/17 08:38 Dose: 100 mls/hr Lidocaine (Lidoderm 5%) 700 mg TOP BEDTIME [facility] Last Admin: 07/30/17 22:27 Dose: 700 mg Lovastatin (Mevacor) 80 mg PO BEDTIME [facility] Last Admin: 07/30/17 20:18 Dose: 80 mg Metoprolol Tartrate (Lopressor) 50 mg PO Q12H [facility] Miscellaneous Information (Remove Patch) 1 ea TRDERM DAILY [facility] Last Admin: 07/31/17 10:07 Dose: Not Given Ondansetron HCl (Zofran) 4 - 8 mg IVPUSH Q4H PRN PRN Reason: Nausea/Vomiting Last Admin: 07/29/17 05:03 Dose: 4 mg Promethazine HCl (Phenergan) 25 mg IM Q6H PRN PRN Reason: Nausea Last Admin: 07/26/17 13:16 Dose: 25 mg Rivaroxaban (Xarelto) 20 mg PO DAILY [facility] Last Admin: 07/31/17 09:59 Dose: 20 mg Trazodone HCl (Trazodone) 150 mg PO BEDTIME [facility] Last Admin: 07/30/17 22:09 Dose: 150 mg Zolpidem Tartrate (Ambien) 5 mg PO BEDTIME PRN PRN Reason: Sleep Last Admin: 07/30/17 22:09 Dose: 5 mg Discontinued Medications Albuterol/Ipratropium (Duoneb 3.0-0.5 Mg/3 Ml) 3 ml NEB Q4H PRN PRN Reason: Wheezing Aspirin (Halfprin) 81 mg PO DAILY [facility] Last Admin: 07/26/17 11:27 Dose: 81 mg Bisacodyl (Dulcolax) 10 mg PO BID [facility] Last Admin: 07/26/17 11:26 Dose: 10 mg Dexamethasone (Dexamethasone) Confirm Administered Dose 4 mg .ROUTE .STK-MED ONE Stop: 07/25/17 07:18 Diphenhydramine HCl (Benadryl) 50 mg IVPUSH Q4H PRN PRN Reason: Itching Last Admin: 07/25/17 12:52 Dose: 50 mg Docusate Sodium (Colace) 100 mg PO BID PRN PRN Reason: Constipation Duloxetine HCl (Cymbalta) 30 mg PO DAILY [facility] Last Admin: 07/26/17 11:27 Dose: 30 mg Enoxaparin Sodium (Lovenox) 40 mg SUBCUT BEDTIME [facility] Last Admin: 07/27/17 20:01 Dose: 40 mg Fentanyl (Sublimaze) Confirm Administered Dose 250 mcg .ROUTE .STK-MED ONE Stop: 07/25/17 07:18 Fludrocortisone Acetate (Florinef) 0.1 mg PO WITHBREAKFAST [facility] Last Admin: 07/26/17 11:27 Dose: 0.1 mg Glycopyrrolate (Robinul) Confirm Administered Dose 1 mg .ROUTE .STK-MED ONE Stop: 07/25/17 07:18 Metronidazole 500 mg/ Premix 100 mls @ 100 mls/hr IV ONETIME ONE Stop: 07/25/17 07:59 Last Admin: 07/25/17 09:11 Dose: 100 mls/hr Sodium Chloride (Normal Saline) 1,000 mls @ 75 mls/hr IV ASDIRECTED [facility] Last Admin: 07/26/17 04:43 Dose: 75 mls/hr Cefazolin Sodium 2 gm/ Sodium (Chloride) 50 mls @ 100 mls/hr IV ONETIME ONE Stop: 07/25/17 07:29 Last Admin: 07/25/17 09:11 Dose: 100 mls/hr Fentanyl 2,500 mcg/ Sodium (Chloride) 250 mls @ 0 mls/hr EPIDUR TITRATE [facility]ANEY; Titrate PRN Reason: Protocol Last Admin: 07/26/17 04:05 Dose: 12 ml/hr, 12 mls/hr Lactated Ringer's (Ringers, Lactated) Confirm Administered Dose 1,000 mls @ as directed .ROUTE .STK-MED ONE Stop: 07/25/17 09:55 Acetaminophen 1,000 mg/ Premix 100 mls @ 400 mls/hr IV Q6H PRN PRN Reason: Pain (severe 7-10) Stop: 07/26/17 12:31 Last Admin: 07/25/17 22:39 Dose: 400 mls/hr Naloxone HCl 0.4 mg/ Sodium (Chloride) 1,001 mls @ 75 mls/hr IV ASDIRECTED ONE Stop: 07/26/17 04:20 Last Admin: 07/25/17 15:02 Dose: 75 mls/hr Sodium Chloride (Normal Saline) 1,000 mls @ 125 mls/hr IV ASDIRECTED [facility] Last Admin: 07/27/17 01:24 Dose: 125 mls/hr Acetaminophen 1,000 mg/ Premix 100 mls @ 400 mls/hr IV Q6H PRN PRN Reason: Pain Stop: 07/27/17 20:09 Last Admin: 07/27/17 19:58 Dose: 400 mls/hr Potassium Chloride 20 meq/Lidocaine HCl 2 ml/ Sodium Chloride 112 mls @ 56 mls/ hr IV Q2H [facility] Stop: 07/28/17 14:59 Last Admin: 07/28/17 13:58 Dose: 56 mls/hr Meropenem (Merrem) Confirm Administered Dose 500 mg .ROUTE .STK-MED ONE Stop: 07/25/17 11:05 Last Admin: 07/25/17 11:11 Dose: 500 mg Metoprolol Tartrate (Lopressor) 5 mg IVPUSH Q1H PRN PRN Reason: Hypertension Last Admin: 07/27/17 02:31 Dose: 5 mg Metoprolol Tartrate (Lopressor) 25 mg PO Q6H [facility] Last Admin: 07/31/17 03:02 Dose: 25 mg Midodrine (Midodrine) 10 mg PO TID [facility] Last Admin: 07/26/17 14:14 Dose: 10 mg Miscellaneous Information (Remove Patch) 1 ea TRDERM DAILY [facility] Naloxone HCl (Narcan) 0.1 mg IVPUSH Q5M PRN PRN Reason: RESP RATE LESS THAN 6/MINUTE Naloxone HCl (Narcan) 0.4 mg IV ASDIRECTED PRN PRN Reason: ITCHING Neostigmine Methylsulfate (Neostigmine) Confirm Administered Dose 5 mg .ROUTE .STK-MED ONE Stop: 07/25/17 07:18 Verify Scop Patch 0 each TOP DAILY [facility] Last Admin: 07/29/17 21:56 Dose: Not Given Ondansetron HCl (Zofran) Confirm Administered Dose 4 mg .ROUTE .STK-MED ONE Stop: 07/25/17 07:18 Pantoprazole Sodium (Protonix) 40 mg PO ACBREAKFAST [facility] Last Admin: 07/26/17 11:27 Dose: 40 mg Potassium Chloride (Klor-Con M20) 40 meq PO ONETIME ONE Stop: 07/29/17 12:01 Last Admin: 07/29/17 12:09 Dose: 40 meq Potassium Chloride (Klor-Con M20) 40 meq PO ONETIME ONE Stop: 07/29/17 18:01 Last Admin: 07/29/17 17:56 Dose: 40 meq Potassium Chloride (Klor-Con M20) 40 meq PO ONETIME ONE Stop: 07/30/17 14:31 Last Admin: 07/30/17 15:42 Dose: 40 meq Potassium Chloride (Klor-Con M20) 40 meq PO ONETIME ONE Stop: 07/30/17 20:01 Last Admin: 07/30/17 20:18 Dose: 40 meq Propofol (Diprivan 20 Ml) Confirm Administered Dose 200 mg .ROUTE .STK-MED ONE Stop: 07/25/17 07:18 Rocuronium [place] (Zemuron) Confirm Administered Dose 50 mg .ROUTE .STK-MED ONE Stop: 07/25/17 07:18 Scopolamine (Transderm-Scop) 1.5 mg TOP Q72H [facility] Stop: 07/28/17 04:00 Last Admin: 07/25/17 15:00 Dose: 1.5 mg Succinylcholine Chloride (Quelicin) Confirm Administered Dose 200 mg .ROUTE .STK -MED ONE Stop: 07/25/17 07:18 Trazodone HCl (Trazodone) Confirm Administered Dose 100 mg .ROUTE .STK-MED ONE Stop: 07/29/17 21:36 Last Admin: 07/29/17 21:55 Dose: Not Given - Exam Quality Assessment: DVT Prophylaxis General: Alert, Oriented, Cooperative, Mild Distress Lungs: Clear to Auscultation, Normal Respiratory Effort Cardiovascular: Regular Rate, Regular Rhythm, No Murmurs GI/Abdominal Exam: Normal Bowel Sounds, Soft, No Organomegaly, Tender. No: Distended, Guarding, Rigid, Rebound Extremities: Non-Tender, No Pedal Edema Skin: Warm, Dry - Problem List Review Problem List Initiated/Reviewed/Updated: Yes - My Orders Last 24 Hours: My Active Orders 07/31/17 21:00 Metoprolol Tartrate [Lopressor] 50 mg PO Q12H 08/01/17 05:00 BASIC METABOLIC PANEL,BMP [CHEM] Timed CBC WITH AUTO DIFF [HEME] Timed - Plan Plan:: ASSESSMENT AND PLAN Accelerated hypertension - the pressures and heart rate have improved with use of metoprolol -Metoprolol 50 mg by mouth every 12 hours Profound fatigue - improved over the past few days with changes in medical therapy Status post colostomy takedown - clinically doing well, although per Dr. Keyes graft is not doing as well as he would wish, considering transfer for hyperbaric oxygen -Postop cares per Dr. Keyes
[2017-07-31] MEDS ORDERED: Iohexol 647 MG/ML 10 ML SDV PO SCH (14:30)
[2017-07-31] MEDS ORDERED: Iopamidol 612 MG/ML 150 ML Bottle IV PRN (15:13)
[2017-07-31] MEDS: traZODone 50 MG Tab PO SCH (20:21)
[2017-07-31] MEDS: Metoprolol Tartrate 50 MG Tab PO SCH (20:22)
[2017-07-31] MEDS: Lidocaine 5% 700 MG Patch TOP SCH (20:32)
[2017-07-31] MEDS: Zolpidem 5 MG Tab PO PRN (22:38)
[2017-08-01] MEDS: Dextrose 5%-0.45% NaCl 1,000 ML IV SCH ×2 (00:48→21:31)
[2017-08-01] MEDS: metroNIDAZOLE/Normal Saline 500 MG in Premix Bag 1 BAG IV SCH ×3 (00:48→16:07)
[2017-08-01] MEDS: ceFAZolin 2 GM in Sodium Chloride 0.9% 50 ML IV SCH ×3 (02:26→17:34)
[2017-08-01] MEDS ORDERED: Potassium Chloride 40 MEQ in Premix Bag 1 BAG IV ONE (08:03)
[2017-08-01] MEDS ORDERED: Potassium Chloride 20 MEQ Tab.ER PO ONE ×2 (08:30→18:00)
--- NOTE | 2017-08-01 08:49 | PN ---
DATE OF SERVICE: 08/01/2017 SUBJECTIVE: Chinyere is the patient of Dr. Jhonatan Keyes who, Tc Weiner MD, Surgical Services, asked to be seen in his absence. Vital signs have been stable. She did have a temp max of 99.2. Pain is controlled, on a regular diet. Oral intake 800 and urine output is 3100. KIET drains; #1 put out 35, #2 put out 0. REVIEW OF SYSTEMS: Remainder of review of systems negative for any pertinent positives and negatives. OBJECTIVE: GENERAL: Chinyere Vick is a 61-year-old female. VITAL SIGNS: TPR is 97.9, 90, 17, blood pressure 143/62. HEART: Regular rate and rhythm. LUNGS: Clear. ABDOMEN: Nursing staff is changing dressing at time of rounds. Large area of darkened skin, tender. Remainder of dressing changed per orders. EXTREMITIES: Trace peripheral edema. ASSESSMENT: Status post ostomy takedown, accelerated hypertension, profound fatigue and loose stools PLAN: Check C. diff, O and P, and culture and sensitivity on stools. Call with results. Continue same treatment. We will evaluate p.r.n. or in a.m. Maria T Schneider PA-C /[id number]
[2017-08-01] MEDS: Ferrous Sulfate 325 MG Tab PO SCH ×2 (09:18→20:34)
[2017-08-01] MEDS: Metoprolol Tartrate 50 MG Tab PO SCH ×2 (09:19→20:34)
[2017-08-01] MEDS: Rivaroxaban 10 MG Tab PO SCH (09:21)
[2017-08-01] MEDS: DULoxetine 30 MG Cap PO SCH (09:21)
[2017-08-01] MEDS: Fludrocortisone 0.1 MG Tab PO SCH (09:21)
[2017-08-01] MEDS: Ondansetron 4 MG/2 ML SDV IVPUSH PRN ×2 (09:50→15:20)
[2017-08-01] MEDS: Acetaminophen/HYDROcodone 325-5 MG Tab PO PRN ×3 (09:54→23:37)
[2017-08-01] MEDS: Potassium Chloride 20 MEQ, Lidocaine 1% 2 ML in Sodium Chloride 0.9% 100 ML IV SCH ×2 (10:16→12:18)
--- NOTE | 2017-08-01 17:15 | PCM.PN ---
- General Info Date of Service: 08/01/17 Subjective Update: Ms. Vick has remained fairly stable since yesterday, no symptoms of chest pain or significant shortness of breath. Energy level seems to be improving and she is been able to walk in the halls several times a day. Heart rate is come under better control with use of metoprolol and blood pressure control has improved. - Review of Systems General: Denies: Fever, Chills Pulmonary: Reports: No Symptoms Cardiovascular: Reports: No Symptoms Gastrointestinal: Reports: Abdominal Pain, Diarrhea, Flatus. Denies: Constipation, Difficulty Swallowing, Nausea, Vomiting - Patient Data Vitals - Most Recent: Last Vital Signs Temp 99 F 08/01/17 14:35 Pulse 88 08/01/17 14:35 Resp 16 08/01/17 14:35 BP 129/55 L 08/01/17 14:35 Pulse Ox 97 08/01/17 14:35 Orthostatic Blood Pressure [ 152/90 Standing] Orthostatic Blood Pressure [ 160/100 Sitting] Orthostatic Blood Pressure [ 172/94 Supine] Weight - Most Recent: 199 lb 15.983 oz I&O - Last 24 Hours: Intake & Output 08/01/17 08/01/17 08/01/17 06:59 14:59 22:59 Intake Total 705 862 100 Output Total 400 1220 Balance 305 -358 100 Lab Results Last 24 Hours: Laboratory Results - last 24 hr 08/01/17 08/01/17 Range/Units 04:32 04:32 WBC 13.5 H (4.5-11.0) K/uL RBC 3.92 (3.30-5.50) M/uL Hgb 11.1 L (12.0-15.0) g/dL Hct 34.1 L (36.0-48.0) % MCV 87 (80-98) fL MCH 28 (27-31) pg MCHC 33 (32-36) % Plt Count 590 H (150-400) K/uL Neut % (Auto) 73 H (36-66) % Lymph % (Auto) 12 L (24-44) % [place] % (Auto) 9 H (2-6) % Eos % (Auto) 5 H (2-4) % Baso % (Auto) 0 (0-1) % Sodium 141 (140-148) mmol/L Potassium 3.1 L (3.6-5.2) mmol/L Chloride 105 (100-108) mmol/L Carbon Dioxide 26 (21-32) mmol/L Anion Gap 13.1 (5.0-14.0) mmol/L BUN 6 L (7-18) mg/dL Creatinine 0.7 (0.6-1.0) mg/dL Est Cr Clr Drug Dosing 76.78 mL/min Estimated GFR (MDRD) > 60 (>60) Glucose 138 H (74-106) mg/dL Calcium 9.1 (8.5-10.1) mg/dL Philippe Results Last 24 Hours: Microbiology 08/01/17 12:51 Clostridium difficile (PCR) - Final Stool / Feces NEGATIVE CDIFF TOXIN Med Orders - Current: Current Medications Acetaminophen (Tylenol) 650 mg PO Q6H PRN PRN Reason: Pain/Fever Last Admin: 07/29/17 08:31 Dose: 650 mg Hydrocodone Bitart/Acetaminophen ([place] 325-5 Mg) 1 - 2 tab PO Q4H PRN PRN Reason: Pain Last Admin: 08/01/17 15:17 Dose: 2 tab Albuterol/Ipratropium (Duoneb 3.0-0.5 Mg/3 Ml) 3 ml NEB Q4H PRN PRN Reason: Wheezing Bacitracin (Bacitracin Oint) 0 gm TOP ASDIRECTED [facility] Last Admin: 07/30/17 08:30 Dose: 1 applic Benzocaine/Menthol (Cepacol Sore Throat) 1 lozenge MUCMEM Q1H PRN PRN Reason: Sore Throat Diazepam (Valium.) 5 mg PO TID PRN PRN Reason: Muscle Spasm Last Admin: 07/30/17 22:09 Dose: 5 mg Diphenhydramine HCl (Benadryl) 50 mg IVPUSH Q6H PRN PRN Reason: ITCHING Duloxetine HCl (Cymbalta) 30 mg PO DAILY [facility] Last Admin: 08/01/17 09:21 Dose: 30 mg Fentanyl (Sublimaze) 25 mcg IVPUSH Q1H PRN PRN Reason: Pain (moderate 4-6) Last Admin: 07/29/17 03:59 Dose: 25 mcg Ferrous Sulfate (Ferrous Sulfate) 325 mg PO BID [facility] Last Admin: 08/01/17 09:18 Dose: 325 mg Fludrocortisone Acetate (Florinef) 0.1 mg PO WITHBREAKFAST [facility] Last Admin: 08/01/17 09:21 Dose: 0.1 mg Fluticasone Propionate (Flonase) 0 gm NASBOTH DAILY PRN PRN Reason: Allergies Hydroxyzine HCl (Vistaril) 50 mg IM Q4H PRN PRN Reason: Nausea Last Admin: 07/29/17 05:09 Dose: 50 mg Dextrose/Sodium Chloride (Dextrose 5%-1/2 Ns) 1,000 mls @ 75 mls/hr IV ASDIRECTED [facility] Last Admin: 08/01/17 00:48 Dose: 75 mls/hr Cefazolin Sodium 2 gm/ Sodium (Chloride) 50 mls @ 100 mls/hr IV Q8H [facility] Last Admin: 08/01/17 11:33 Dose: 100 mls/hr Metronidazole 500 mg/ Premix 100 mls @ 100 mls/hr IV Q8H [facility] Last Admin: 08/01/17 16:07 Dose: 100 mls/hr Lidocaine (Lidoderm 5%) 700 mg TOP BEDTIME [facility] Last Admin: 07/31/17 20:32 Dose: 700 mg Lovastatin (Mevacor) 80 mg PO BEDTIME [facility] Last Admin: 07/31/17 20:20 Dose: 80 mg Metoprolol Tartrate (Lopressor) 50 mg PO Q12H [facility] Last Admin: 08/01/17 09:19 Dose: 50 mg Miscellaneous Information (Remove Patch) 1 ea TRDERM DAILY [facility] Last Admin: 08/01/17 09:40 Dose: 1 ea Ondansetron HCl (Zofran) 4 - 8 mg IVPUSH Q4H PRN PRN Reason: Nausea/Vomiting Last Admin: 08/01/17 15:20 Dose: 8 mg Potassium Chloride (Klor-Con M20) 40 meq PO ONETIME ONE Stop: 08/01/17 18:01 Promethazine HCl (Phenergan) 25 mg IM Q6H PRN PRN Reason: Nausea Last Admin: 07/26/17 13:16 Dose: 25 mg Rivaroxaban (Xarelto) 20 mg PO DAILY [facility] Last Admin: 08/01/17 09:21 Dose: 20 mg Trazodone HCl (Trazodone) 150 mg PO BEDTIME [facility] Last Admin: 07/31/17 20:21 Dose: 150 mg Zolpidem Tartrate (Ambien) 5 mg PO BEDTIME PRN PRN Reason: Sleep Last Admin: 07/31/17 22:38 Dose: 5 mg Discontinued Medications Albuterol/Ipratropium (Duoneb 3.0-0.5 Mg/3 Ml) 3 ml NEB Q4H PRN PRN Reason: Wheezing Alvimopan (Entereg) 12 mg PO BID [facility] Stop: 08/01/17 21:01 Last Admin: 08/01/17 10:01 Dose: Not Given Aspirin (Halfprin) 81 mg PO DAILY [facility] Last Admin: 07/26/17 11:27 Dose: 81 mg Bisacodyl (Dulcolax) 10 mg PO BID [facility] Last Admin: 07/26/17 11:26 Dose: 10 mg Dexamethasone (Dexamethasone) Confirm Administered Dose 4 mg .ROUTE .STK-MED ONE Stop: 07/25/17 07:18 Diphenhydramine HCl (Benadryl) 50 mg IVPUSH Q4H PRN PRN Reason: Itching Last Admin: 07/25/17 12:52 Dose: 50 mg Docusate Sodium (Colace) 100 mg PO BID PRN PRN Reason: Constipation Duloxetine HCl (Cymbalta) 30 mg PO DAILY [facility] Last Admin: 07/26/17 11:27 Dose: 30 mg Enoxaparin Sodium (Lovenox) 40 mg SUBCUT BEDTIME [facility] Last Admin: 07/27/17 20:01 Dose: 40 mg Fentanyl (Sublimaze) Confirm Administered Dose 250 mcg .ROUTE .STK-MED ONE Stop: 07/25/17 07:18 Fludrocortisone Acetate (Florinef) 0.1 mg PO WITHBREAKFAST [facility] Last Admin: 07/26/17 11:27 Dose: 0.1 mg Glycopyrrolate (Robinul) Confirm Administered Dose 1 mg .ROUTE .STK-MED ONE Stop: 07/25/17 07:18 Metronidazole 500 mg/ Premix 100 mls @ 100 mls/hr IV ONETIME ONE Stop: 07/25/17 07:59 Last Admin: 07/25/17 09:11 Dose: 100 mls/hr Sodium Chloride (Normal Saline) 1,000 mls @ 75 mls/hr IV ASDIRECTED [facility] Last Admin: 07/26/17 04:43 Dose: 75 mls/hr Cefazolin Sodium 2 gm/ Sodium (Chloride) 50 mls @ 100 mls/hr IV ONETIME ONE Stop: 07/25/17 07:29 Last Admin: 07/25/17 09:11 Dose: 100 mls/hr Fentanyl 2,500 mcg/ Sodium (Chloride) 250 mls @ 0 mls/hr EPIDUR TITRATE [facility]; Titrate PRN Reason: Protocol Last Admin: 07/26/17 04:05 Dose: 12 ml/hr, 12 mls/hr Lactated Ringer's (Ringers, Lactated) Confirm Administered Dose 1,000 mls @ as directed .ROUTE .STK-MED ONE Stop: 07/25/17 09:55 Acetaminophen 1,000 mg/ Premix 100 mls @ 400 mls/hr IV Q6H PRN PRN Reason: Pain (severe 7-10) Stop: 07/26/17 12:31 Last Admin: 07/25/17 22:39 Dose: 400 mls/hr Naloxone HCl 0.4 mg/ Sodium (Chloride) 1,001 mls @ 75 mls/hr IV ASDIRECTED ONE Stop: 07/26/17 04:20 Last Admin: 07/25/17 15:02 Dose: 75 mls/hr Sodium Chloride (Normal Saline) 1,000 mls @ 125 mls/hr IV ASDIRECTED [facility] Last Admin: 07/27/17 01:24 Dose: 125 mls/hr Acetaminophen 1,000 mg/ Premix 100 mls @ 400 mls/hr IV Q6H PRN PRN Reason: Pain Stop: 07/27/17 20:09 Last Admin: 07/27/17 19:58 Dose: 400 mls/hr Potassium Chloride 20 meq/Lidocaine HCl 2 ml/ Sodium Chloride 112 mls @ 56 mls/ hr IV Q2H [facility] Stop: 07/28/17 14:59 Last Admin: 07/28/17 13:58 Dose: 56 mls/hr Sodium Chloride (Normal Saline) 81 mls @ 3.3 mls/sec IV ASDIRECTED [facility] Stop: 07/31/17 16:30 Last Admin: 07/31/17 17:04 Dose: 3.3 mls/sec Potassium Chloride 20 meq/Lidocaine HCl 2 ml/ Sodium Chloride 112 mls @ 56 mls/ hr IV Q2H [facility] Stop: 08/01/17 13:29 Last Admin: 08/01/17 12:18 Dose: 56 mls/hr Iohexol (Omnipaque-300) 20 ml PO . DIRECTED [facility] Stop: 07/31/17 15:00 Last Admin: 07/31/17 14:58 Dose: 20 ml Iopamidol (Isovue-300 (61%)) 135 ml IV . DIRECTED PRN PRN Reason: RADIOLOGY EXAM Stop: 07/31/17 16:30 Last Admin: 07/31/17 17:05 Dose: 135 ml Meropenem (Merrem) Confirm Administered Dose 500 mg .ROUTE .STK-MED ONE Stop: 07/25/17 11:05 Last Admin: 07/25/17 11:11 Dose: 500 mg Metoprolol Tartrate (Lopressor) 5 mg IVPUSH Q1H PRN PRN Reason: Hypertension Last Admin: 07/27/17 02:31 Dose: 5 mg Metoprolol Tartrate (Lopressor) 25 mg PO Q6H [facility] Last Admin: 07/31/17 03:02 Dose: 25 mg Midodrine (Midodrine) 10 mg PO TID [facility] Last Admin: 07/26/17 14:14 Dose: 10 mg Miscellaneous Information (Remove Patch) 1 ea TRDERM DAILY [facility] Naloxone HCl (Narcan) 0.1 mg IVPUSH Q5M PRN PRN Reason: RESP RATE LESS THAN 6/MINUTE Naloxone HCl (Narcan) 0.4 mg IV ASDIRECTED PRN PRN Reason: ITCHING Neostigmine Methylsulfate (Neostigmine) Confirm Administered Dose 5 mg .ROUTE .STK-MED ONE Stop: 07/25/17 07:18 Verify Scop Patch 0 each TOP DAILY [facility] Last Admin: 07/29/17 21:56 Dose: Not Given Ondansetron HCl (Zofran) Confirm Administered Dose 4 mg .ROUTE .STK-MED ONE Stop: 07/25/17 07:18 Pantoprazole Sodium (Protonix) 40 mg PO ACBREAKFAST [facility] Last Admin: 07/26/17 11:27 Dose: 40 mg Potassium Chloride (Klor-Con M20) 40 meq PO ONETIME ONE Stop: 07/29/17 12:01 Last Admin: 07/29/17 12:09 Dose: 40 meq Potassium Chloride (Klor-Con M20) 40 meq PO ONETIME ONE Stop: 07/29/17 18:01 Last Admin: 07/29/17 17:56 Dose: 40 meq Potassium Chloride (Klor-Con M20) 40 meq PO ONETIME ONE Stop: 07/30/17 14:31 Last Admin: 07/30/17 15:42 Dose: 40 meq Potassium Chloride (Klor-Con M20) 40 meq PO ONETIME ONE Stop: 07/30/17 20:01 Last Admin: 07/30/17 20:18 Dose: 40 meq Potassium Chloride (Klor-Con M20) 40 meq PO ONETIME ONE Stop: 08/01/17 08:31 Last Admin: 08/01/17 09:21 Dose: 40 meq Propofol (Diprivan 20 Ml) Confirm Administered Dose 200 mg .ROUTE .STK-MED ONE Stop: 07/25/17 07:18 Rocuronium [place] (Zemuron) Confirm Administered Dose 50 mg .ROUTE .STK-MED ONE Stop: 07/25/17 07:18 Scopolamine (Transderm-Scop) 1.5 mg TOP Q72H [facility] Stop: 07/28/17 04:00 Last Admin: 07/25/17 15:00 Dose: 1.5 mg Succinylcholine Chloride (Quelicin) Confirm Administered Dose 200 mg .ROUTE .STK -MED ONE Stop: 07/25/17 07:18 Trazodone HCl (Trazodone) Confirm Administered Dose 100 mg .ROUTE .STK-MED ONE Stop: 07/29/17 21:36 Last Admin: 07/29/17 21:55 Dose: Not Given - Exam Quality Assessment: DVT Prophylaxis General: Alert, Oriented, Cooperative, No Acute Distress Lungs: Clear to Auscultation, Normal Respiratory Effort Cardiovascular: Regular Rate, Regular Rhythm, No Murmurs GI/Abdominal Exam: Normal Bowel Sounds, Soft, Non-Tender, No Organomegaly, No Distention Extremities: Non-Tender, No Pedal Edema Skin: Warm, Dry - Problem List Review Problem List Initiated/Reviewed/Updated: Yes - My Orders Last 24 Hours: My Active Orders 07/31/17 21:00 Metoprolol Tartrate [Lopressor] 50 mg PO Q12H 08/01/17 18:00 Potassium Chloride [Klor-Con M20] 40 meq PO ONETIME ONE 08/02/17 05:00 BASIC METABOLIC PANEL,BMP [CHEM] Timed CBC WITH AUTO DIFF [HEME] Timed 08/02/17 09:00 Potassium Chloride [Klor-Con M20] 40 meq PO BID - Plan Plan:: ASSESSMENT AND PLAN Accelerated hypertension - the pressures and heart rate have improved with use of metoprolol -Metoprolol 50 mg by mouth every 12 hours Profound fatigue - improved over the past few days with changes in medical therapy and increased activity Status post colostomy takedown - clinically doing well, although per Dr. Keyes graft is not doing as well as he would wish -Postop cares per Dr. Keyes
[2017-08-01] MEDS: traZODone 50 MG Tab PO SCH (20:34)
[2017-08-01] MEDS: Lidocaine 5% 700 MG Patch TOP SCH (21:10)
[2017-08-01] MEDS: Zolpidem 5 MG Tab PO PRN (21:11)
[2017-08-02] MEDS: metroNIDAZOLE/Normal Saline 500 MG in Premix Bag 1 BAG IV SCH ×2 (00:43→09:23)
[2017-08-02] MEDS: ceFAZolin 2 GM in Sodium Chloride 0.9% 50 ML IV SCH ×2 (01:47→10:51)
[2017-08-02] MEDS: DULoxetine 30 MG Cap PO SCH (09:24)
[2017-08-02] MEDS: Fludrocortisone 0.1 MG Tab PO SCH (09:24)
[2017-08-02] MEDS: Potassium Chloride 20 MEQ Tab.ER PO SCH ×3 (09:24→16:16)
[2017-08-02] MEDS: Rivaroxaban 10 MG Tab PO SCH (09:24)
[2017-08-02] MEDS: Metoprolol Tartrate 50 MG Tab PO SCH ×2 (09:25→21:02)
[2017-08-02] MEDS: Ferrous Sulfate 325 MG Tab PO SCH ×2 (09:26→21:04)
[2017-08-02] MEDS: Acetaminophen/HYDROcodone 325-5 MG Tab PO PRN ×3 (10:37→21:02)
[2017-08-02] MEDS: metroNIDAZOLE 250 MG Tab PO SCH ×2 (14:19→21:03)
[2017-08-02] MEDS: Cephalexin 250 MG Cap PO SCH ×2 (15:48→21:03)
[2017-08-02] MEDS: Zolpidem 5 MG Tab PO PRN (21:02)
[2017-08-02] MEDS: traZODone 50 MG Tab PO SCH (21:03)
[2017-08-02] MEDS: Lidocaine 5% 700 MG Patch TOP SCH (21:04)
[2017-08-03] MEDS: Cephalexin 250 MG Cap PO SCH ×4 (05:43→22:14)
[2017-08-03] MEDS: metroNIDAZOLE 250 MG Tab PO SCH ×3 (05:43→22:14)
[2017-08-03] MEDS: Rivaroxaban 10 MG Tab PO SCH (08:11)
[2017-08-03] MEDS: DULoxetine 30 MG Cap PO SCH (08:12)
[2017-08-03] MEDS: Fludrocortisone 0.1 MG Tab PO SCH (08:12)
[2017-08-03] MEDS: Potassium Chloride 20 MEQ Tab.ER PO SCH ×2 (08:12→16:20)
[2017-08-03] MEDS: Ferrous Sulfate 325 MG Tab PO SCH ×2 (08:12→20:39)
[2017-08-03] MEDS: Metoprolol Tartrate 50 MG Tab PO SCH ×2 (08:13→20:39)
--- NOTE | 2017-08-03 09:43 | PN ---
DATE OF SERVICE: 08/02/2017 The patient remains afebrile with stable vital signs. White count was down a little bit at 11.9 today, and continues to have a fairly decent oral intake with 1260 mL in yesterday and she did move her bowels three times yesterday as well. She continued to have a low output fistula, being drained by the KIET drain, which has obvious GI tract contents in it and has only had around 50 mL over the 24-hour period. As long as she does not appear to be septic, the fistula site will be satisfactorily drained. CT scan done two days ago did not show any significant fluid collections. The patient will get in the shower today with the stool infection, she is feeling fairly unclean. We will try to increase the quality of the oral intake and add Ensure, Boost, and/or instant breakfast b.i.d. between meals. Tc Weiner MD /[id number]
[2017-08-03] MEDS: Acetaminophen/HYDROcodone 325-5 MG Tab PO PRN ×3 (10:23→20:41)
[2017-08-03] MEDS: Bacitracin Oint 28.35 GM Tube TOP SCH (14:09)
[2017-08-03] MEDS: Lidocaine 5% 700 MG Patch TOP SCH (20:39)
[2017-08-03] MEDS: Zolpidem 5 MG Tab PO PRN (20:40)
[2017-08-03] MEDS: traZODone 50 MG Tab PO SCH (20:40)
[2017-08-04] MEDS: Cephalexin 250 MG Cap PO SCH ×4 (05:25→21:05)
[2017-08-04] MEDS: metroNIDAZOLE 250 MG Tab PO SCH ×3 (05:25→21:06)
--- NOTE | 2017-08-04 08:19 | PN ---
DATE OF SERVICE: 08/04/2017 SUBJECTIVE: Chinyere's vital signs have been stable. Pain is well managed. Oral intake is 890, urine output was 1750. KIET drain 1 put out 25 mL of a fecal smelling drainage and KIET 2 put out 2 mL. REVIEW OF SYSTEMS: Remainder of review of systems negative for any pertinent positives and negatives. OBJECTIVE: GENERAL: Chinyere Vick is a 61-year-old female. She is sleepy, resting in bed. VITAL SIGNS: TPR 97.4, 93, 16, blood pressure 129/61. HEENT: Negative. NECK: Supple. HEART: Regular rate and rhythm. LUNGS: Clear. ABDOMEN: Dressing dry and intact. KIET drains intact. EXTREMITIES: Without peripheral edema. ASSESSMENT: 1. Status post ostomy takedown, 07/29/2017. 2. Leak at the colorectal anastomosis. PLAN: Continue same orders. Dr. [facility] Maria T Schneider PA-C /[id number]
[2017-08-04] MEDS: Fludrocortisone 0.1 MG Tab PO SCH (09:09)
[2017-08-04] MEDS: DULoxetine 30 MG Cap PO SCH (09:09)
[2017-08-04] MEDS: Potassium Chloride 20 MEQ Tab.ER PO SCH ×2 (09:09→16:52)
[2017-08-04] MEDS: Rivaroxaban 10 MG Tab PO SCH (09:09)
[2017-08-04] MEDS: Metoprolol Tartrate 50 MG Tab PO SCH ×2 (09:10→21:07)
[2017-08-04] MEDS: Ferrous Sulfate 325 MG Tab PO SCH ×2 (09:10→21:05)
[2017-08-04] MEDS: Acetaminophen 325 MG Tab PO PRN ×2 (09:13→16:34)
[2017-08-04] MEDS: Diazepam 5 MG Tab PO PRN ×2 (09:24→16:34)
--- NOTE | 2017-08-04 13:33 | PN ---
DATE OF SERVICE: 08/03/2017 SUBJECTIVE: The patient has been afebrile with stable vital signs. She does have quite a bit of feculent drainage in KIET #1. This is overall low output. There is a little bit of creeping around the drain. Clinically, there are no signs of any significant infection. We will recheck some labs tomorrow. We will keep the present oral antibiotics going, which is Keflex. 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 We will encourage increased oral intake and have her shower daily as tolerated. Tc Weiner MD /[id number]
[2017-08-04] MEDS: Lidocaine 5% 700 MG Patch TOP SCH (21:05)
[2017-08-04] MEDS: traZODone 50 MG Tab PO SCH (21:06)
[2017-08-04] MEDS: Zolpidem 5 MG Tab PO PRN (21:07)
[2017-08-04] MEDS: Acetaminophen/HYDROcodone 325-5 MG Tab PO PRN (21:08)
[2017-08-05] MEDS: metroNIDAZOLE 250 MG Tab PO SCH ×3 (05:59→21:11)
[2017-08-05] MEDS: Cephalexin 250 MG Cap PO SCH ×4 (05:59→21:11)
[2017-08-05] MEDS: Fludrocortisone 0.1 MG Tab PO SCH (09:47)
[2017-08-05] MEDS: Potassium Chloride 20 MEQ Tab.ER PO SCH ×2 (09:47→16:26)
[2017-08-05] MEDS: DULoxetine 30 MG Cap PO SCH (09:48)
[2017-08-05] MEDS: Ferrous Sulfate 325 MG Tab PO SCH ×2 (09:48→21:10)
[2017-08-05] MEDS: Rivaroxaban 10 MG Tab PO SCH (09:48)
[2017-08-05] MEDS: Metoprolol Tartrate 50 MG Tab PO SCH ×2 (09:48→21:10)
[2017-08-05] MEDS: Acetaminophen 325 MG Tab PO PRN (14:57)
[2017-08-05] MEDS: Diazepam 5 MG Tab PO PRN (14:58)
[2017-08-05] MEDS: Bacitracin Oint 28.35 GM Tube TOP SCH (15:00)
[2017-08-05] MEDS ORDERED: FLU Vacc QS 2017-18 (36mos UP)/PF 60 MCG/0.5 ML Syringe IM ONE (16:00)
[2017-08-05] MEDS: Lidocaine 5% 700 MG Patch TOP SCH (21:08)
[2017-08-05] MEDS: traZODone 50 MG Tab PO SCH (21:10)
[2017-08-05] MEDS: Acetaminophen/HYDROcodone 325-5 MG Tab PO PRN (21:25)
[2017-08-06] MEDS: metroNIDAZOLE 250 MG Tab PO SCH ×2 (05:59→14:01)
[2017-08-06] MEDS: Cephalexin 250 MG Cap PO SCH ×3 (05:59→16:56)
[2017-08-06] MEDS ORDERED: Iohexol 647 MG/ML 10 ML SDV PO SCH (06:00)
[2017-08-06] MEDS: Acetaminophen 325 MG Tab PO PRN ×2 (06:14→13:58)
[2017-08-06] MEDS: Diazepam 5 MG Tab PO PRN ×2 (06:14→13:59)
[2017-08-06] MEDS ORDERED: Iopamidol 612 MG/ML 150 ML Bottle IV PRN (07:11)
--- NOTE | 2017-08-06 08:26 | PN ---
DATE OF SERVICE: 08/06/2017 SUBJECTIVE: The patient is doing very well today. Pain is well controlled on p.o. Tylenol. No nausea, vomiting, shortness of breath, or chest pain. OBJECTIVE: VITAL SIGNS: Stable. Having bowel movements. CARDIOVASCULAR: Regular rhythm and rate. RESPIRATORY: Lungs clear to consultation bilaterally. ABDOMEN: Incision is unchanged, some area of necrosis. No evidence of cellulitis or infection. Moisture level appropriate. ASSESSMENT: Ostomy takedown/small bowel resection. PLAN: CT scan is still pending, was completed, but the results are not back yet. We will await that for further guidance. If this does well, and she does continue to show stability, which she has, we will anticipate discharge. If any further surgical intervention is needed, we will perform that. Jhonatan Keyes MD /[id number]
--- NOTE | 2017-08-06 08:41 | PN ---
DATE OF SERVICE: 08/05/2017 SUBJECTIVE: The patient is doing well. Pain is well controlled. No nausea, vomiting, shortness of breath, or chest pain. OBJECTIVE: VITAL SIGNS: Stable. Slightly elevated white blood cell count. CARDIOVASCULAR: Regular rhythm and rate. RESPIRATORY: Lungs clear to auscultation bilaterally. ABDOMEN: Bowel sounds are positive. ASSESSMENT: Status post small bowel resection and ostomy takedown. PLAN: We will continue to work on diet and activity. We will perform a CT scan tomorrow morning. If this looks good, she will be cleared for discharge. Jhonatan Keyes MD /[id number]
[2017-08-06] MEDS: Fludrocortisone 0.1 MG Tab PO SCH (08:43)
[2017-08-06] MEDS: Potassium Chloride 20 MEQ Tab.ER PO SCH ×2 (08:44→16:57)
[2017-08-06] MEDS: Ferrous Sulfate 325 MG Tab PO SCH (08:45)
[2017-08-06] MEDS: DULoxetine 30 MG Cap PO SCH (08:45)
[2017-08-06] MEDS: Metoprolol Tartrate 50 MG Tab PO SCH (08:46)
[2017-08-06] MEDS: Rivaroxaban 10 MG Tab PO SCH (08:46)
--- NOTE | 2017-08-06 09:54 | CT ---
Abdomen Pelvis w Cont HISTORY: Abdominal pain possible fistula. History of partial colectomy. Dose: Total DLP 1405. COMPARISON: CT scan of 07/31/2017. FINDINGS: Lung bases are clear. There is diffuse fatty infiltration of the liver. Liver is mildly enl arged measuring 18.6 cm craniocaudal. Spleen appears normal. There is prominent diastases of the abdo saulo wall between the rectus abdominous muscles. Is is unchanged. Left-sided surgical drain is again noted adjacent to the bladder there are some small air bubbles adjacent to the surgical drain which is fairly typical. The fluid collection posterior to the right rectus abdominis muscle on prior study likely representing seroma has almost completely resolved. Moderate stool within the colon involved in the central diastases. Contrast filled normal caliber small bowel also present in this region. No evidence for obstruction. The fluid collection in the very anterior margin of the diastases from the prior study has resolved. No evidence for abscess. The remainder the pelvis is unremarkable. Impression: 1. Improved findings. The fluid collection at the very anterior margin of the diastases adjacent to s urgical clips has resolved. The fluid collection posterior to the right rectus abdominis muscle has a lmost completely resolved. No evidence for abscess, obstruction or perforation. 2. Left-sided surgical drain does have some air bubbles around it which is fairly typical. I do not s ee new suspicious findings. Specifically I do not see definitive evidence for fistula adjacent to the surgical anastomosis clips within the abdominal diastases region.
[2017-08-06] MEDS: Bacitracin Oint 28.35 GM Tube TOP SCH (11:13)
[2017-08-06 16:45] VITALS: BP 136/63
== END 2017-08-06 17:30 | disposition home or self-care (01) | DRG 330 ==
LOC: JP.MS 07-25 05:53 → JP.SDS 07-25 05:53 → EDSTATUS 07-25 07:30 → JP.2SS 07-25 14:15
PROVIDERS: ADMIT Surgery; ATTEND Surgery
PROC: 0DQK0ZZ Repair Ascending Colon, Open Approach (ICD-10-PCS; principal; 2017-07-25)
PROC: 0DQN0ZZ Repair Sigmoid Colon, Open Approach (ICD-10-PCS; 2017-07-25)
PROC: 0DNW0ZZ Release Peritoneum, Open Approach (ICD-10-PCS; 2017-07-25)
PROC: 0DBB0ZX Excision of Ileum, Open Approach, Diagnostic (ICD-10-PCS; 2017-07-25)
PROC: 3E0M05Z Introduction of Adhesion Barrier into Peritoneal Cavity, Open Approach (ICD-10-PCS; 2017-07-25)
DX: Z43.3 Encounter for attention to colostomy (principal); K63.2 Fistula of intestine; K56.7 Ileus, unspecified; H30.899 Other chorioretinal inflammations, unspecified eye; Z23 Encounter for immunization; I10 Essential (primary) hypertension; Z86.711 Personal history of pulmonary embolism; Z86.718 Personal history of other venous thrombosis and embolism; E78.5 Hyperlipidemia, unspecified; E66.01 Morbid (severe) obesity due to excess calories; Z68.33 Body mass index [BMI] 33.0-33.9, adult; F17.210 Nicotine dependence, cigarettes, uncomplicated; F32.9 Major depressive disorder, single episode, unspecified; K21.9 Gastro-esophageal reflux disease without esophagitis; J44.9 Chronic obstructive pulmonary disease, unspecified; Z90.49 Acquired absence of other specified parts of digestive tract; F41.9 Anxiety disorder, unspecified; M19.90 Unspecified osteoarthritis, unspecified site; Z96.612 Presence of left artificial shoulder joint; M54.9 Dorsalgia, unspecified; G89.29 Other chronic pain; Z95.5 Presence of coronary angioplasty implant and graft; L81.8 Other specified disorders of pigmentation; M48.061 Spinal stenosis, lumbar region without neurogenic claudication; R53.83 Other fatigue; G47.00 Insomnia, unspecified; R19.7 Diarrhea, unspecified; Z79.82 Long term (current) use of aspirin; Z79.01 Long term (current) use of anticoagulants; Z88.5 Allergy status to narcotic agent; Z91.013 Allergy to seafood; M06.9 Rheumatoid arthritis, unspecified
CPT/HCPCS: 36415; 71020; 71020-26; 74020; 74020-26; 74177; 74177-26; 80048; 80053; 81001; 83735; 84100; 84484; 85002; 85025; 85027; 86850; 86900; 86901; 86920; 86922; 87177; 87209; 87493; 88304; 88307; 90686; 94762; A9270-GY; C1781; G0008; J0131; J0330; J0690; J1100; J1200; J1650; J2185; J2310; J2405; J2550; J2704; J2710; J3010; J3410; J3480; J3490; J7030; J7040; J7050; J7120

== ENCOUNTER 2017-08-07 11:18 | Emergency (ER) | payer MEDICARE, MEDICAID ==
--- NOTE | 2017-08-07 12:14 | EDM.PDOC ---
ED HPI GENERAL MEDICAL PROBLEM - General Chief Complaint: General Stated Complaint: DIZZY Time Seen by Provider: 08/07/17 12:07 Source of Information: Reports: Patient History Limitations: Reports: No Limitations - History of Present Illness INITIAL COMMENTS - FREE TEXT/NARRATIVE: 61-year-old female who was just discharged from the hospital yesterday after an extended stay for an ileostomy takedown went home and feels like she may have "done too much". She was active yesterday, this morning she went to her son's house when she tried to get out of the car she became very dizzy and lightheaded. He worried her sister she came in. No fevers or chills, no nausea or vomiting, no shortness of breath. No headache. She was started on some fludrocortisone because of orthostatic blood pressure issues and admits she did not take her dose this morning. Onset: Unknown/Unsure Severity: Mild Associated Symptoms: Reports: Malaise, Weakness. Denies: Confusion, Chest Pain , Cough, Nausea/Vomiting, Shortness of Breath Headache Pain Score (Numeric/FACES): 5 - Related Data Allergies Allergy/AdvReac Type Severity Reaction Status Date / Time shellfish derived Allergy Severe Anaphylactic Verified 08/07/17 11:26 Shock oxycodone HCl Allergy Hives Verified 08/07/17 11:26 [From OxyContin] Home Meds: Home Meds Lovastatin 80 tab PO BEDTIME 05/21/14 [History] Omeprazole 40 mg PO DAILY 10/28/14 [History] Fluticasone Propionate [Flonase] 2 spray NS DAILY PRN 03/06/16 [History] traZODone 50 - 150 mg PO BEDTIME PRN 07/03/16 [History] Rivaroxaban [Xarelto] 20 mg PO DAILY 11/19/16 [History] Ferrous Sulfate 325 mg PO BID 05/20/17 [History] Midodrine 10 mg PO TID 05/20/17 [History] Zolpidem [Ambien] 5 mg PO BEDTIME 05/20/17 [History] Albuterol/Ipratropium [DuoNeb 3.0-0.5 MG/3 ML] 3 ml NEB Q4H PRN 07/16/17 [ History] Aspirin [Halfprin] 81 mg PO DAILY 07/16/17 [History] DULoxetine [Cymbalta] 30 mg PO DAILY 07/16/17 [History] Diazepam [Valium] 1 - 1.5 tab PO TID PRN 07/16/17 [History] Fludrocortisone [Florinef] 0.1 mg PO WITHBREAKFAST 07/16/17 [History] tiZANidine [Zanaflex] 4 mg PO Q8H PRN 07/16/17 [History] Past Medical History HEENT History: Reports: Impaired Vision Other HEENT History: wears glasses Cardiovascular History: Reports: Blood Clots/VTE/DVT, High Cholesterol, Hypertension, [place], Prior Cardiac Arrest, SOB on Exertion, Syncope Respiratory History: Reports: COPD, PE, Pneumonia, Recurrent, SOB Gastrointestinal History: Reports: Chronic Diarrhea, Diverticulosis, GERD, Other (See Below) Other Gastrointestinal History: Diverticulitis, ischemic bowel; dysphagia. 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: Dysfunctional Uterine Bleeding, Other OB/BYN History: hysterectomy and c-sections X3 Musculoskeletal History: Reports: Back Pain, Chronic, RA Other Musculoskeletal History: DJD Neurological History: Reports: Concussion, CVA, Migraines, Vertigo Psychiatric History: Reports: Anxiety, Depression Endocrine/Metabolic History: Reports: Obesity/BMI 30+, Vitamin D Deficiency Hematologic History: Reports: Anticoagulation Therapy, Other (See Below) Other Hematologic History: parasitic toxoplasmosis Immunologic History: Reports: Immunosuppression Other Immunologic History: " Not very good" Immune system Dermatologic History: Reports: Eczema, Seborrheic Dermatitis Other Dermatologic History: tattoos on both arms - Infectious Disease History Infectious Disease History: Reports: Chicken Pox, Measles Other Infectious Disease History: unable to obtain - Past Surgical History HEENT Surgical History: Reports: Naso-Sinus Surgery Cardiovascular Surgical History: Reports: Coronary Artery Stent, Percutaneous Transluminal Angioplasty GI Surgical History: Reports: Appendectomy, Cholecystectomy, Colon, Colonoscopy , Colostomy, EGD, Hernia, Abdominal, Other (See Below) Other GI Surgeries/Procedures: Take down of colostomy Female Surgical History: Reports: Breast Biopsy, Section, Hysterectomy, Salpingo-Oophorectomy Musculoskeletal Surgical History: Reports: Shoulder Replacement Dermatological Surgical History: Reports: Skin Graft Social & Family History - Family History Cardiac: Reports: Heart Failure Neurological: Reports: CVA Endocrine/Metabolic: Reports: Hypothyroidism Dermatologic: Reports: Eczema - Tobacco Use Smoking Status *Q: Former Smoker Years of Tobacco use: 40 Packs/Tins Daily: 0.2 Used Tobacco, but Quit: Yes Month Tobacco Last Used: 3 months ago Second Hand Smoke Exposure: Yes - Caffeine Use Caffeine Use: Reports: Coffee - Alcohol Use Days Per Week of Alcohol Use: 0 - Recreational Drug Use Recreational Drug Use: No Drug Use in Last 12 Months: No ED ROS GENERAL - Review of Systems Review Of Systems: See Below Constitutional: Reports: Malaise, Weakness. Denies: Fever, Chills HEENT: Reports: No Symptoms Respiratory: Denies: Shortness of Breath Cardiovascular: Denies: Chest Pain GI/Abdominal: Reports: Abdominal Pain (Tender when trying to sit up likely from recent surgery) Skin: Reports: No Symptoms Neurological: Reports: Dizziness. Denies: Headache Psychiatric: Reports: No Symptoms ED EXAM, GENERAL - Physical Exam Exam: See Below Exam Limited By: No Limitations General Appearance: Alert, No Apparent Distress Eye Exam: Bilateral Eye: EOMI (No nystagmus) Respiratory/Chest: No Respiratory Distress, Lungs Clear Cardiovascular: Regular Rate, Rhythm. No: Extra Beats GI/Abdominal: Tender (Some diffuse discomfort with palpation, postsurgical support belt is around abdomen.) Neurological: Alert, Oriented, No Motor/Sensory Deficits, Other (Extremity strength is symmetric, she can hold her legs up against gravity) Skin Exam: Warm, Dry Course - Vital Signs Last Recorded V/S: Last Vital Signs Temp 96.8 F 08/07/17 11:37 Pulse 97 08/07/17 13:46 Resp 16 08/07/17 13:46 BP 115/58 L 08/07/17 13:46 Pulse Ox 99 08/07/17 13:46 Orthostatic Blood Pressure [ 79/42 Standing] Orthostatic Blood Pressure [ 76/39 Sitting] Orthostatic Blood Pressure [ 99/46 Supine] - Orders/Labs/Meds Labs: Laboratory Tests 08/07/17 08/07/17 Range/Units 13:15 13:15 WBC 13.7 H (4.5-11.0) K/uL RBC 3.97 (3.30-5.50) M/uL Hgb 11.5 L (12.0-15.0) g/dL Hct 33.8 L (36.0-48.0) % MCV 85 (80-98) fL MCH 29 (27-31) pg MCHC 34 (32-36) % Plt Count 246 (150-400) K/uL Neut % (Auto) 75 H (36-66) % Lymph % (Auto) 14 L (24-44) % [place] % (Auto) 6 (2-6) % Eos % (Auto) 1 L (2-4) % Baso % (Auto) 4 H (0-1) % Sodium 143 (140-148) mmol/L Potassium 7.0 H* (3.6-5.2) mmol/L Chloride 110 H (100-108) mmol/L Carbon Dioxide 17 L (21-32) mmol/L Anion Gap 23.0 H (5.0-14.0) mmol/L BUN 13 D (7-18) mg/dL Creatinine 1.0 (0.6-1.0) mg/dL Est Cr Clr Drug Dosing 53.83 mL/min Estimated GFR (MDRD) 57 L (>60) Glucose 116 H (74-106) mg/dL Calcium 9.5 (8.5-10.1) mg/dL Meds: Medications Discontinued Medications Generic Name Dose Route Start Last Admin Trade Name Freq PRN Reason Stop Dose Admin Fludrocortisone Acetate 0.1 mg 08/07/17 13:14 08/07/17 13:31 Florinef PO 08/07/17 13:15 0.1 mg ONETIME ONE Administration - Re-Assessments/Exams Free Text/Narrative Re-Assessment/Exam: 08/07/17 12:51 CBC and BMP were obtained as well as orthostatic blood pressures. 08/07/17 13:13 She was mildly hypotensive and symptomatic on orthostatic blood pressures, systolic dropped from 94-78. She did not become tachycardic. 08/07/17 13:45 Patient remained asymptomatic while in the emergency room. Her orthostatic blood pressures again were mildly positive so she was given her 0.1 mg of fludrocortisone. Hemoglobin was actually slightly higher than her hospital levels done 3 days ago. She was discharged home. Departure - Departure Time of Disposition: 14:19 Disposition: Home, Self-Care 01 Condition: Good Clinical Impression: Orthostatic hypotension, Vasovagal near-syncope - Discharge Information Instructions: Near-Syncope, [id number] Referrals: Yue Palacios MD [Primary Care Provider] - Forms: ED Department Discharge Care Plan Goals: Continue your medications as prescribed. Consider rechecking in 2-3 days if not improving satisfactorily. Return sooner at any time if worsening or concerns.
[2017-08-07] MEDS: Fludrocortisone 0.1 MG Tab PO ONE ×2 (13:19→13:31)
[2017-08-07 14:19] VITALS: BP 115/58
== END 2017-08-07 14:19 | disposition home or self-care (01) ==
LOC: JP.ED 11:18
DX: I95.1 Orthostatic hypotension (principal); R55 Syncope and collapse; J44.9 Chronic obstructive pulmonary disease, unspecified; I10 Essential (primary) hypertension; E66.9 Obesity, unspecified; Z79.899 Other long term (current) drug therapy; Z87.891 Personal history of nicotine dependence; Z79.82 Long term (current) use of aspirin; Z91.013 Allergy to seafood; Z88.6 Allergy status to analgesic agent
CPT/HCPCS: 36415; 80048; 85025; 99284; A9270

== ENCOUNTER 2017-08-10 09:42 | Inpatient (IN) | payer MEDICARE, MEDICAID ==
--- NOTE | 2017-08-10 10:22 | EDM.PDOC ---
ED HPI GENERAL MEDICAL PROBLEM - General Chief Complaint: General Stated Complaint: OPEN WOUND VIA TRI Time Seen by Provider: 08/10/17 10:00 Source of Information: Reports: Patient, EMS History Limitations: Reports: No Limitations - History of Present Illness INITIAL COMMENTS - FREE TEXT/NARRATIVE: 61-year-old female who had a recent ostomy takedown had been doing well since discharge. This morning however when she got up and ambulated after being in the bathroom she noticed she was leaving a trail of blood and stool. No increased pain or fever. She noticed that she had fecal material exiting her surgical wound. The ambulance was called. Onset: Sudden (Sometime overnight) Location: Reports: Abdomen Left Lower Abdomen Pain Score (Numeric/FACES): 5 - Related Data Allergies Allergy/AdvReac Type Severity Reaction Status Date / Time shellfish derived Allergy Severe Anaphylactic Verified 08/10/17 10:27 Shock oxycodone HCl Allergy Hives Verified 08/10/17 10:27 [From OxyContin] Home Meds: Home Meds Lovastatin 80 tab PO BEDTIME 05/21/14 [History] Omeprazole 40 mg PO BEDTIME 10/28/14 [History] Fluticasone Propionate [Flonase] 2 spray NS DAILY PRN 03/06/16 [History] traZODone 50 - 150 mg PO BEDTIME PRN 07/03/16 [History] Rivaroxaban [Xarelto] 20 mg PO DAILY 11/19/16 [History] Ferrous Sulfate 325 mg PO BID 05/20/17 [History] Midodrine 10 mg PO TID 05/20/17 [History] Zolpidem [Ambien] 5 mg PO BEDTIME 05/20/17 [History] Albuterol/Ipratropium [DuoNeb 3.0-0.5 MG/3 ML] 3 ml NEB Q4H PRN 07/16/17 [ History] DULoxetine [Cymbalta] 30 mg PO DAILY 07/16/17 [History] Diazepam [Valium] 1 - 1.5 tab PO TID PRN 07/16/17 [History] Fludrocortisone [Florinef] 0.1 mg PO WITHBREAKFAST 07/16/17 [History] tiZANidine [Zanaflex] 4 mg PO Q8H PRN 07/16/17 [History] Cephalexin [Cephalexin] 1 tab PO Q8H 08/10/17 [History] metroNIDAZOLE [Metronidazole] 1 tab PO QID 08/10/17 [History] Past Medical History HEENT History: Reports: Impaired Vision Other HEENT History: wears glasses Cardiovascular History: Reports: Blood Clots/VTE/DVT, High Cholesterol, Hypertension, [place], Prior Cardiac Arrest, SOB on Exertion, Syncope Respiratory History: Reports: COPD, PE, Pneumonia, Recurrent, SOB Gastrointestinal History: Reports: Chronic Diarrhea, Diverticulosis, GERD, Other (See Below) Other Gastrointestinal History: Diverticulitis, ischemic bowel; dysphagia. 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: Dysfunctional Uterine Bleeding, Other OB/BYN History: hysterectomy and c-sections X3 Musculoskeletal History: Reports: Back Pain, Chronic, RA Other Musculoskeletal History: DJD Neurological History: Reports: Concussion, CVA, Migraines, Vertigo Psychiatric History: Reports: Anxiety, Depression Endocrine/Metabolic History: Reports: Obesity/BMI 30+, Vitamin D Deficiency Hematologic History: Reports: Anticoagulation Therapy, Other (See Below) Other Hematologic History: parasitic toxoplasmosis Immunologic History: Reports: Immunosuppression Other Immunologic History: " Not very good" Immune system Dermatologic History: Reports: Eczema, Seborrheic Dermatitis Other Dermatologic History: tattoos on both arms - Infectious Disease History Infectious Disease History: Reports: Chicken Pox, Measles Other Infectious Disease History: unable to obtain - Past Surgical History HEENT Surgical History: Reports: Naso-Sinus Surgery Cardiovascular Surgical History: Reports: Coronary Artery Stent, Percutaneous Transluminal Angioplasty GI Surgical History: Reports: Appendectomy, Cholecystectomy, Colon, Colonoscopy , Colostomy, EGD, Hernia, Abdominal, Other (See Below) Other GI Surgeries/Procedures: Take down of colostomy Female Surgical History: Reports: Breast Biopsy, Section, Hysterectomy, Salpingo-Oophorectomy Musculoskeletal Surgical History: Reports: Shoulder Replacement Dermatological Surgical History: Reports: Skin Graft Social & Family History - Family History Cardiac: Reports: Heart Failure Neurological: Reports: CVA Endocrine/Metabolic: Reports: Hypothyroidism Dermatologic: Reports: Eczema - Tobacco Use Smoking Status *Q: Former Smoker Years of Tobacco use: 40 Packs/Tins Daily: 0.2 Used Tobacco, but Quit: Yes Month Tobacco Last Used: 3 months ago Second Hand Smoke Exposure: Yes - Caffeine Use Caffeine Use: Reports: Coffee - Alcohol Use Days Per Week of Alcohol Use: 0 - Recreational Drug Use Recreational Drug Use: No Drug Use in Last 12 Months: No ED ROS GENERAL - Review of Systems Review Of Systems: See Below Constitutional: Denies: Fever, Chills Respiratory: Denies: Shortness of Breath Cardiovascular: Denies: Chest Pain : Reports: No Symptoms Neurological: Denies: Headache ED EXAM, GENERAL - Physical Exam Exam: See Below Exam Limited By: No Limitations General Appearance: Alert, No Apparent Distress Respiratory/Chest: No Respiratory Distress GI/Abdominal: Other (A brief exam of the surgical area revealed thick fecal material exiting her surgical incision on the left abdomen as well as fecal material entering the KIET drain) Course - Vital Signs Last Recorded V/S: Last Vital Signs Temp 98.6 F 08/10/17 10:15 Pulse 120 H 08/10/17 11:30 Resp 16 08/10/17 10:50 BP 124/67 08/10/17 11:30 Pulse Ox 93 L 08/10/17 11:30 - Orders/Labs/Meds Orders: Active Orders 24 hr Category Date Time Status Chest 1V Frontal [CR] Routine Exams 08/10/17 12:47 Ordered RED BLOOD CELLS LP [BBK] Routine Lab 08/10/17 13:54 Results TYPE AND SCREEN [BBK] Routine Lab 08/10/17 13:54 Results Sodium Chloride 0.9% [Normal Saline] 1,000 ml Med 08/10/17 10:00 Active IV ASDIRECTED Medication Orders Sodium Chloride (Normal Saline) 1,000 mls @ 250 mls/hr IV ASDIRECTED DELANEY Last Admin: 08/10/17 10:43 Dose: 250 mls/hr Labs: Laboratory Tests 08/10/17 08/10/17 08/10/17 Range/Units 10:24 10:24 10:24 WBC 17.8 H (4.5-11.0) K/uL RBC 3.64 (3.30-5.50) M/uL Hgb 10.4 L (12.0-15.0) g/dL Hct 31.9 L (36.0-48.0) % MCV 88 (80-98) fL MCH 29 (27-31) pg MCHC 33 (32-36) % Plt Count 980 H (150-400) K/uL Neut % (Auto) 84 H (36-66) % Lymph % (Auto) 7 L (24-44) % [place] % (Auto) 8 H (2-6) % Eos % (Auto) 0 L (2-4) % Baso % (Auto) 0 (0-1) % Sodium 138 L (140-148) mmol/L Potassium 3.6 (3.6-5.2) mmol/L Chloride 102 (100-108) mmol/L Carbon Dioxide 23 (21-32) mmol/L Anion Gap 16.6 H (5.0-14.0) mmol/L BUN 10 (7-18) mg/dL Creatinine 0.9 (0.6-1.0) mg/dL Est Cr Clr Drug Dosing 59.81 mL/min Estimated GFR (MDRD) > 60 (>60) Glucose 178 H (74-106) mg/dL Lactic Acid 1.4 (0.4-2.0) mmol/L Calcium 9.0 (8.5-10.1) mg/dL Blood Type Gel Antibody Screen Crossmatch 08/10/17 Range/Units 13:54 WBC (4.5-11.0) K/uL RBC (3.30-5.50) M/uL Hgb (12.0-15.0) g/dL Hct (36.0-48.0) % MCV (80-98) fL MCH (27-31) pg MCHC (32-36) % Plt Count (150-400) K/uL Neut % (Auto) (36-66) % Lymph % (Auto) (24-44) % [place] % (Auto) (2-6) % Eos % (Auto) (2-4) % Baso % (Auto) (0-1) % Sodium (140-148) mmol/L Potassium (3.6-5.2) mmol/L Chloride (100-108) mmol/L Carbon Dioxide (21-32) mmol/L Anion Gap (5.0-14.0) mmol/L BUN (7-18) mg/dL Creatinine (0.6-1.0) mg/dL Est Cr Clr Drug Dosing mL/min Estimated GFR (MDRD) (>60) Glucose (74-106) mg/dL Lactic Acid (0.4-2.0) mmol/L Calcium (8.5-10.1) mg/dL Blood Type O NEGATIVE Gel Antibody Screen Negative Crossmatch See Detail Meds: Medications Generic Name Dose Route Start Last Admin Trade Name Gely PRN Reason Stop Dose Admin Sodium Chloride 1,000 mls @ 250 mls/hr 08/10/17 10:00 08/10/17 10:43 Normal Saline IV 250 mls/hr ASDIRECTED DELANEY Administration Discontinued Medications Generic Name Dose Route Start Last Admin Trade Name Gely PRN Reason Stop Dose Admin Dexamethasone Confirm 08/10/17 10:36 Dexamethasone Administered 08/10/17 10:37 Dose 4 mg .ROUTE .STK-MED ONE Fentanyl Confirm 08/10/17 10:36 Sublimaze Administered 08/10/17 10:37 Dose 250 mcg .ROUTE .STK-MED ONE Fentanyl Confirm 08/10/17 13:05 Sublimaze Administered 08/10/17 13:06 Dose 250 mcg .ROUTE .STK-MED ONE Fentanyl Citrate Confirm 08/10/17 15:40 Fentanyl In Ns 20 Mcg/Ml 30 Ml Front Edger Administered 08/10/17 15:41 Dose 600 mcg .ROUTE .STK-MED ONE Glycopyrrolate Confirm 08/10/17 10:36 Robinul Administered 08/10/17 10:37 Dose 1 mg .ROUTE .STK-MED ONE Heparin Sodium (Porcine) Confirm 08/10/17 10:54 08/10/17 12:15 Heparin Lock Flush 100 Units/Ml Administered 08/10/17 10:55 1,000 units Dose Administration 1,000 units .ROUTE .STK-MED ONE Piperacillin/Tazobactam/ 100 mls @ 200 mls/hr 08/10/17 11:00 08/10/17 11:09 Dextrose 4.5 gm/ Premix IV 08/10/17 11:29 200 mls/hr ONETIME ONE Administration Lactated Ringer's Confirm 08/10/17 15:23 Ringers, Lactated Administered 08/10/17 15:24 Dose 1,000 mls @ as directed .ROUTE .STK-MED ONE Lactated Ringer's Confirm 08/10/17 15:23 Ringers, Lactated Administered 08/10/17 15:24 Dose 1,000 mls @ as directed .ROUTE .STK-MED ONE Meropenem Confirm 08/10/17 14:05 08/10/17 14:14 Merrem Administered 08/10/17 14:06 500 mg Dose Administration 500 mg .ROUTE .STK-MED ONE Neostigmine Methylsulfate Confirm 08/10/17 10:36 Neostigmine Administered 08/10/17 10:37 Dose 5 mg .ROUTE .STK-MED ONE Ondansetron HCl Confirm 08/10/17 10:36 Zofran Administered 08/10/17 10:37 Dose 4 mg .ROUTE .STK-MED ONE Propofol Confirm 08/10/17 10:36 Diprivan 20 Ml Administered 08/10/17 10:37 Dose 200 mg .ROUTE .STK-MED ONE Rocuronium [place] Confirm 08/10/17 10:36 Zemuron Administered 08/10/17 10:37 Dose 50 mg .ROUTE .STK-MED ONE Rocuronium [place] Confirm 08/10/17 13:49 Zemuron Administered 08/10/17 13:50 Dose 50 mg .ROUTE .STK-MED ONE Succinylcholine Chloride Confirm 08/10/17 10:36 Quelicin Administered 08/10/17 10:37 Dose 200 mg .ROUTE .STK-MED ONE - Re-Assessments/Exams Free Text/Narrative Re-Assessment/Exam: 08/10/17 10:20 Dr. Keyes was informed and promptly came to see the patient. She was admitted for more surgical intervention. A CBC, BMP and lactic acid were drawn. Further orders and admission were taken care of by Dr. Keyes. Departure - Departure Time of Disposition: 12:36 Disposition: Admitted As Inpatient 67 Condition: Fair Clinical Impression: Status post colostomy takedown, Abdominal wall fistula - Discharge Information - My Orders Last 24 Hours: My Active Orders 08/10/17 10:00 Sodium Chloride 0.9% [Normal Saline] 1,000 ml IV ASDIRECTED - Assessment/Plan Last 24 Hours: My Active Orders 08/10/17 10:00 Sodium Chloride 0.9% [Normal Saline] 1,000 ml IV ASDIRECTED
[2017-08-10] MEDS ORDERED: Glycopyrrolate 0.2 MG/ML 5 ML MDV ONE (10:36)
[2017-08-10] MEDS ORDERED: Dexamethasone 4 MG/ML SDV ONE (10:36)
[2017-08-10] MEDS ORDERED: Propofol 200 MG/20 ML SDV ONE (10:36)
[2017-08-10] MEDS ORDERED: Neostigmine Methylsulfate 1 MG/ML 5 ML Syringe ONE (10:36)
[2017-08-10] MEDS ORDERED: Succinylcholine 200 MG/10 ML MDV ONE (10:36)
[2017-08-10] MEDS ORDERED: fentaNYL 250 MCG/5 ML SDV ONE ×2 (10:36→13:05)
[2017-08-10] MEDS ORDERED: Ondansetron 4 MG/2 ML SDV ONE ×2 (10:36→16:20)
[2017-08-10] MEDS ORDERED: Rocuronium 50 MG/5 ML Vial ONE ×2 (10:36→13:49)
[2017-08-10] MEDS: Sodium Chloride 0.9% 1,000 ML IV SCH ×3 (10:43→22:21)
[2017-08-10] MEDS ORDERED: Piperacillin/Tazobactam/Dext 4.5 GM in Premix Bag 1 BAG IV ONE (11:00)
[2017-08-10] MEDS ORDERED: Meropenem 500 MG SDV ONE (14:05)
[2017-08-10] MEDS ORDERED: Lactated Ringers 1,000 ML ONE ×2 (15:23)
[2017-08-10] MEDS ORDERED: fentaNYL/Normal Saline 600 MCG/30 ML PCA Vial ONE (15:40)
[2017-08-10] MEDS ORDERED: Naloxone 0.4 MG/ML SDV IV PRN (15:51)
[2017-08-10] MEDS ORDERED: Benzocaine/Cetylpyridinium/Menthol Lozenge MUCMEM PRN (16:02)
[2017-08-10] MEDS ORDERED: Scopolamine 1.5 MG Transdermal Patch TOP ONE (16:19)
[2017-08-10] MEDS: Pantoprazole 40 MG Vial IVPUSH SCH (17:23)
[2017-08-10] MEDS: hydrOXYzine HCl 100 MG/2 ML SDV IM PRN (17:27)
[2017-08-10] MEDS ORDERED: Sodium Chloride 0.9% 1,000 ML IV SCH (20:00)
[2017-08-10] MEDS: Piperacillin/Tazobactam 4.5 GM in Sodium Chloride 0.9% 100 ML IV SCH (20:15)
[2017-08-10] MEDS: LORazepam 2 MG/ML MDV IVPUSH PRN (20:36)
[2017-08-10] MEDS: Ondansetron 4 MG/2 ML SDV IVPUSH PRN (22:15)
[2017-08-11] MEDS ORDERED: Glycopyrrolate 0.2 MG/ML 5 ML MDV ONE (00:14)
[2017-08-11] MEDS ORDERED: Ondansetron 4 MG/2 ML SDV ONE (00:14)
[2017-08-11] MEDS ORDERED: fentaNYL 250 MCG/5 ML SDV ONE (00:14)
[2017-08-11] MEDS ORDERED: Dexamethasone 4 MG/ML SDV ONE (00:14)
[2017-08-11] MEDS ORDERED: Neostigmine Methylsulfate 1 MG/ML 5 ML Syringe ONE (00:14)
[2017-08-11] MEDS ORDERED: Succinylcholine 200 MG/10 ML MDV ONE (00:14)
[2017-08-11] MEDS ORDERED: Rocuronium 50 MG/5 ML Vial ONE (00:14)
[2017-08-11] MEDS ORDERED: Ketamine 500 MG/5 ML MDV ONE (00:15)
--- NOTE | 2017-08-11 01:35 | PN ---
DATE OF SERVICE: 08/11/2017 TIME: 12:30 a.m. The patient continues to do acceptable with respect to blood pressure, urine output, and volume. Unfortunately, she has in the last 1 hour developed some bleeding from the wound VAC. Hemoglobin has also dropped to 6. The patient is receiving packed red blood cells along with fresh frozen plasma and other blood products. The patient is on Xarelto, which is half-life at this time calculated using thrombosis Steven of 7-11 hours. We will evaluate for evidence of active bleeding at this time. Jhonatan Keyes MD /[id number]
--- NOTE | 2017-08-11 02:32 | OR ---
DATE OF PROCEDURE: 08/11/2017 PROCEDURE: Reopening of recent laparotomy. COMPLICATION: None. 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 ANESTHESIA: General. PREOPERATIVE DIAGNOSIS: Anemia. POSTOPERATIVE DIAGNOSIS: Anemia. FINDINGS: 1. Petechiae-type bleeding consistent with Xarelto administration. 2. Suture ligation of small artery. PROCEDURE IN DETAIL: The patient was placed in supine position. The wound VAC was removed. There was a large amount of clot noted. This was carefully suctioned and removed. The patient had a small petechiae bleeding consistent with Xarelto and significant surgery. However, there was one small artery, which was definitely bleeding and this was suture ligated without difficulty. This was underneath the previous anastomosing site and not readily visualizable. This area along with the rest of the abdomen during the original surgery was inspected. There was no bleeding. This commenced bleeding approximately 1-2 hours ago. This was then thoroughly irrigated. The wound VAC was again placed using 10/10 drape and black sponge and the overlay dressings. The patient tolerated the procedure well. Jhonatan Keyes MD /[id number]
[2017-08-11] MEDS: Piperacillin/Tazobactam 4.5 GM in Sodium Chloride 0.9% 100 ML IV SCH (04:06)
[2017-08-11] MEDS: Enoxaparin 40 MG/0.4 ML Syringe SUBCUT SCH (09:18)
[2017-08-11] MEDS: CHECK SCOPOLAMINE PATCH SCH (09:18)
--- NOTE | 2017-08-11 09:24 | CR ---
Portable chest There is a left-sided PICC line in place. The tip descends down into the SVC in good position. Impression: 1. PICC line in good position.
[2017-08-11] MEDS: Sodium Chloride 0.9% 1,000 ML IV SCH ×2 (09:53→21:24)
--- NOTE | 2017-08-11 10:09 | US ---
VL Duplex Lwr Ext Veins Ltd Rt FINDINGS: Duplex imaging was performed from the right common femoral through the popliteal veins. The veins demonstrate complete compressibility without evidence of intraluminal thrombus. There is kezia l phasic variation of the waveforms with respiration. There is augmented flow with calf compression. IMPRESSION: There is no evidence for right lower extremity deep venous thrombosis.
--- NOTE | 2017-08-11 11:48 | CONS ---
DATE OF SERVICE: 08/10/2017 REFERRING PHYSICIAN: CONSULTING PHYSICIAN: Jhonatan Keyes MD H&P AND CONSULTATION REPORT History and physical collected at 11:30 a.m. REASON FOR CONSULTATION: Evaluation of abdominal pain. HISTORY OF PRESENT ILLNESS: This is a 61-year-old female who presents to the emergency room with abdominal pain and drainage. This is consistent with a fistula. The patient has an extensive surgical history in the abdomen, which originally started at [facility] with surgical repair of diverticulitis, Parish's pouch, anastomotic leak, myocardial infarction. The patient states she cannot remember much of this. This then continued on with skin graft performed approximately 6 months ago, as the patient has no abdominal wall. On 07/25/2017, the patient underwent lysis of adhesions, ostomy takedown, and small-bowel resection. The patient did well from then and has not had any complications. Unfortunately in the last 24 hours, she has developed a significantly large amount of drainage consistent with a fissure. In fact, in discussing with the patient, the fistula output was probably about 100 to 200 over 10 minutes. PAST MEDICAL HISTORY: 1. As described above. 2. COPD. 3. History of pulmonary embolism. 4. History of DVT. 5. History of pneumonia, recurrent. 6. Shortness of breath. 7. Chronic diarrhea. 8. Diverticulosis. 9. Reflux disease. 10.History of ischemic bowel. 11.Dysfunctional uterine bleeding. 12.Back pain. 13.Rheumatoid arthritis. 14.Degenerative joint disease. 15.History of concussions. 16.Strokes. 17.Migraines. 18.Vertigo. 19.Anxiety. 20.Depression. 21.Morbid obesity. 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 23.Myocardial infarction. 24.Hypothyroidism. 25.Eczema. 26.History of heart failure. PAST SURGICAL HISTORY: 1. As described above. 2. Appendectomy. 3. Cholecystectomy. 4. Multiple colon resections. 5. Colonoscopy. 6. Colostomy. 7. EGD. 8. Hernia repair. 9. Abdominal hernia repairs. 10.Abscess formation. 11.Leak formation. 12.Repair of probable fistula. 13.Breast biopsy. 14.C-sections. 15.Hysterectomy. 16.Salpingo-oophorectomy. 17.Shoulder surgery. 18.Multiple skin graft repair. 19.Coronary artery stenting. SOCIAL HISTORY: The patient continues to smoke, as noted in the chart, and the patient denies it today. FAMILY HISTORY: Noncontributory. REVIEW OF SYSTEMS: GENERAL: The patient is resting comfortably. HEENT: No changes. CARDIOVASCULAR: No chest pain. RESPIRATORY: No shortness of breath. GASTROINTESTINAL: The patient has had a normal bowel movement and is doing quite well with respect to her GI status postoperatively. GENITOURINARY: No dysuria. NEUROLOGICAL: No changes. PSYCH: No changes. PHYSICAL EXAMINATION: VITAL SIGNS: Temperature 98.6, blood pressure 144/67, pulse 131, and 94% oxygen saturation. HEENT: Pupils are equal. NECK: Supple. LUNGS: Clear. ABDOMEN: Shows probable fistula noted in the left lower quadrant and right upper quadrant. EXTREMITIES: Full range of motion, strength 5/5. NEUROLOGICAL: Oriented x3. PSYCH: No gross depression. LABORATORY RESULTS: Show white blood cell count of 17,000. Sodium 138, creatinine is 0.9. Platelet count is 980,000. ASSESSMENT AND PLAN: Multiple fistulas. As I discussed with the patient prior to her previous surgeries, she is at the highest risk category for surgical intervention. I also discussed with her fistulas. She has an extremely high output fistula, and it is becoming symptomatic with concern for infection. The patient and I had a long discussion of her surgical risk and how it would be reasonable to manage this without surgical intervention. As with the ostomy takedown, the patient states she does not want to go in that direction. Therefore, the plan will be exploratory laparotomy with possible fistula resection. In anticipation of long-term intensive care unit, we also placed a central line during this procedure. We discussed the risks, benefits, and alternatives of both procedures including infection, bleeding, chronic ileostomy or ostomy formation, sepsis, , pneumothorax, chronic wounds. In addition, the patient has no abdominal wall. We discussed that this would be a challenge to even create an ostomy at this time. We also discussed the fact that we might make this worse by creating more fistulas during this process or bowel issues. The patient understands these risks and wishes to proceed. Jhonatan Keyes MD /[id number]
--- NOTE | 2017-08-11 12:18 | OR ---
DATE OF PROCEDURE: 08/10/2017 PROCEDURE: 1. Resection of enterocutaneous fistula. 2. Repair of enterocutaneous fistula x3. COMPLICATION: None. WARD SERVICE SUPERVISOR: None. ANESTHESIA: General/local. INDICATIONS: A 61-year-old female who, a couple of weeks ago, underwent a colostomy takedown. This was all related to a significant hospitalization with diverticulitis and a Parish pouch procedure. The patient did well postoperatively and presented to the emergency room with a high output stool and elevated white blood cell count, concerning for sepsis. RISKS: Risks, benefits, alternatives, limitations including, but not limited to infection, bleeding, fistula formation, cardiovascular compromise, including , were explained to the patient, and she wishes to proceed. PREOPERATIVE DIAGNOSIS: Abdominal fistula. POSTOPERATIVE DIAGNOSIS: Abdominal fistula. ESTIMATED BLOOD LOSS: Approximately 150 mL. PROCEDURE IN DETAIL: The patient was placed in supine position. The patient essentially has no abdominal wall from her previous abdominal surgeries. All she has is a skin graft, which appeared to be failing. The high output fistula was noted in the left lower aspect of the abdominal wound. There was a lower output fistula in the upper right. Therefore, this will be dealt with first. Originally, a tangential-type incision would be made to stay away from the dense adhesions and hopefully be able to not enter them to increase the risk for further enterotomies. Unfortunately, this incision had extended to a T-type incision and again extended in the lateral orientation to further identify this fistula. This fistula would be from the large bowel, and this would be associated with significant adhesions. The term concrete abdomen would be appropriate for this patient. Over the next 3 hours, dissection commenced. An enterotomy x2 would be encountered and repaired with interrupted Vicryl sutures in 2 layers. In addition, one of the enterotomies would also be repaired with a [id number] anastomosis. The patient essentially had no abdominal wall, dense adhesions, and no concerting orientation with respect to small bowel. Essentially, a large conglomeration of bowel densely adhered to each other, which was unable to be discerned on correct proximal to distal flow. The small bowel was reanastomosed to each other. A large small defect was also closed, which was associated with the fistula. All bleeding was controlled with electrocautery. Meropenem irrigation would be used. It is of note that essentially there was no way to remove all the adhesions and understand the patient's anatomy, in fact each further dissection led to further enterotomies. Therefore, at this time, it was decided to sew the fistula that could be identified closed. There was also consideration for placing an ostomy or a colostomy; unfortunately, the patient has no abdominal wall, and this would not be able to be facilitated due to inability to mobilize the abdomen without making more harm with respect to mobilizing to create a tension-free ostomy. Therefore, at this point, it was determined the best course of action with this patient would be close the fistulas and leave the abdomen open. The abdomen was left open with 10/10 drapes, and then a wound VAC was placed over this. Of note, prior to the procedure initiating, a subclavian central line would be placed in a standard technique. This technique will be performed by anesthetizing the skin with lidocaine, using a micropuncture kit to access the left subclavian vein, which happened on the second pass, and then exchanged for a 35,000th wire. This was then exchanged for a 7-Turkish dilator, exchanged over a wire, and then a triple lumen was placed and sutured in. A wound VAC was placed, again with 10/10 drape, silver sponge overlaying a drape plastic. Also of note, the patient aspirated in the postoperative area, per nursing report. The patient did get a chest x-ray after this, which was used for evaluation of aspiration and secondarily for central line placement. The patient tolerated the procedure hemodynamically well. Jhonatan Keyes MD /[id number]
[2017-08-11] MEDS: Ondansetron 4 MG/2 ML SDV IVPUSH PRN (12:19)
[2017-08-11] MEDS: Piperacillin/Tazobactam/Dext 4.5 GM in Premix Bag 1 BAG IV SCH ×2 (12:22→19:43)
[2017-08-11] MEDS: Pantoprazole 40 MG Vial IVPUSH SCH (16:39)
[2017-08-11] MEDS: LORazepam 2 MG/ML MDV IVPUSH PRN (22:21)
[2017-08-12] MEDS: Piperacillin/Tazobactam/Dext 4.5 GM in Premix Bag 1 BAG IV SCH ×3 (03:56→19:49)
[2017-08-12] MEDS ORDERED: Vancomycin 1 GM SDV IV SCH (07:30)
[2017-08-12] MEDS: Sodium Chloride 0.9% 1,000 ML IV SCH ×2 (07:59→20:25)
--- NOTE | 2017-08-12 08:14 | PN ---
DATE OF SERVICE: 08/11/2017 SUBJECTIVE: The patient is doing better today. Pain is well controlled. No nausea, vomiting, shortness of breath, or chest pain. OBJECTIVE: VITAL SIGNS: Stable. Small low grade fever. Blood pressure is greatly improved. CARDIOVASCULAR: Regular rhythm and rate. RESPIRATORY: Clear to auscultation bilaterally. Wound VAC is intact. ASSESSMENT: Status post small bowel resection and fistula takedown. PLAN: 1. Hematology: The patient has completed her transfusion. Hemoglobin is greater than 11. No definitive bleeding at this time. 2. Anticoagulation: Although the patient did have recent bleeding event, we will start the patient on Lovenox today due to her high DVT/PE risk. 3. Gastroenterology: The patient remains n.p.o. We will start TPN today. 4. Infectious Disease: We will continue the Zosyn at this time. 5. Genitourinary: Urine output is adequate. We will continue the intermittent bolus orders. 6. Prophylaxis: We will get her up in the chair today, SCDs, and Lovenox as described, along with proton-pump inhibitor. Jhonatan Keyes MD /[id number]
[2017-08-12] MEDS: Enoxaparin 40 MG/0.4 ML Syringe SUBCUT SCH (09:54)
[2017-08-12] MEDS ORDERED: Potassium Chloride 40 MEQ/20 ML SDV IV SCH (10:45)
[2017-08-12] MEDS: Potassium Chloride 20 MEQ, Lidocaine 1% 2 ML in Sodium Chloride 0.9% 100 ML IV SCH ×2 (11:07→13:17)
[2017-08-12] MEDS ORDERED: Lidocaine 1% with EPINEPHrine 1:100,000 50 ML MDV ONE (11:50)
[2017-08-12] MEDS: CHECK SCOPOLAMINE PATCH SCH (13:17)
[2017-08-12] MEDS: Pantoprazole 40 MG Vial IVPUSH SCH (15:37)
[2017-08-12] MEDS ORDERED: fentaNYL 250 MCG/5 ML SDV ONE (15:52)
[2017-08-12] MEDS ORDERED: Dexamethasone 4 MG/ML SDV ONE (15:53)
[2017-08-12] MEDS ORDERED: Glycopyrrolate 0.2 MG/ML 5 ML MDV ONE (15:53)
[2017-08-12] MEDS ORDERED: Rocuronium 50 MG/5 ML Vial ONE (15:53)
[2017-08-12] MEDS ORDERED: Succinylcholine 200 MG/10 ML MDV ONE (15:53)
[2017-08-12] MEDS ORDERED: Ondansetron 4 MG/2 ML SDV ONE (15:53)
[2017-08-12] MEDS ORDERED: Propofol 200 MG/20 ML SDV ONE (15:53)
[2017-08-12] MEDS ORDERED: Lidocaine 2% 100 MG/5 ML Syringe ONE (15:53)
[2017-08-12] MEDS ORDERED: Neostigmine Methylsulfate 1 MG/ML 5 ML Syringe ONE (15:53)
[2017-08-12] MEDS ORDERED: Potassium Chloride 20 MEQ in Premix Bag 1 BAG IV ONE (16:00)
[2017-08-13] MEDS: Piperacillin/Tazobactam/Dext 4.5 GM in Premix Bag 1 BAG IV SCH ×3 (04:11→20:04)
--- NOTE | 2017-08-13 09:04 | PN ---
DATE OF SERVICE: 08/13/2017 SUBJECTIVE: The patient has significantly improved overnight. Pain is better controlled. No nausea, vomiting, shortness of breath, or chest pain. OBJECTIVE: VITAL SIGNS: Stable. CARDIOVASCULAR: Regular rhythm and rate. RESPIRATORY: Lungs are clear to auscultation bilaterally. ABDOMEN: Bowel sounds are not examined due to wound VAC and no abdominal wall. LABORATORY DATA: Results show improvement of white blood cell count, stabilization of hemoglobin. ASSESSMENT: Status post exploratory laparotomy. PLAN: The patient will continue TPN today and work on activity. Jhonatan Keyes MD /[id number]
--- NOTE | 2017-08-13 09:28 | PN ---
DATE OF SERVICE: 08/12/2017 SUBJECTIVE: The patient is doing well except large amount of stool output from the wound VAC. OBJECTIVE: VITAL SIGNS: Stable, hypertensive. CARDIOVASCULAR: Regular rhythm and rate. RESPIRATORY: Lungs are clear to auscultation bilaterally. ABDOMEN: Bowel sounds are positive. ASSESSMENT AND PLAN: To the operating room for wound VAC exchange and for abdominal exploration. Jhonatan Keyes MD /[id number]
[2017-08-13] MEDS: CHECK SCOPOLAMINE PATCH SCH (10:08)
[2017-08-13] MEDS: Enoxaparin 40 MG/0.4 ML Syringe SUBCUT SCH (10:08)
[2017-08-13] MEDS: Vancomycin 1.6 GM in Sodium Chloride 0.9% 250 ML IV SCH ×2 (10:27→21:20)
[2017-08-13] MEDS: D5 1/2 NS w/ 20 mEq/L KCl 1,000 ML IV SCH (13:10)
[2017-08-13] MEDS: 1: AA 5%/Calcium/D15W/Lytes 1,000 ML with MVI, Adult with Vitamin K 10 ML, Chromium/Copp IV SCH ×3 (13:11)
[2017-08-13] MEDS: Ondansetron 4 MG/2 ML SDV IVPUSH PRN (13:44)
--- NOTE | 2017-08-13 15:04 | OR ---
DATE OF PROCEDURE: 08/12/2017 PROCEDURES: 1. Reopening of recent laparotomy, (14799). 2. Wound VAC exchange ([id number]). COMPLICATIONS: None. HORTICULTURAL AGENT: None. ANESTHESIA: MAC/general. INDICATIONS: A 61-year-old female with multiple abdominal issues requiring re-evaluation today. FINDINGS: Improvement of fistula output. PROCEDURE IN DETAIL: The patient was placed in supine position. The previous wound VAC was removed. The abdomen was explored. The patient definitely has an additional fistula or more. Unfortunately/fortunately, this was unable to be visualized today, and this had not improved in output. The decision not to dissect the bowel further was appropriate, as she has a very friable bowel and resultant further fistulas. Therefore, this was then thoroughly irrigated with 1 L of irrigation. The wound VAC was then replaced in same manner using 06/24 drape, black sponge overlay with protective film around the edges. The patient tolerated the procedure well. Jhonatan Keyes MD /[id number]
[2017-08-13] MEDS: Dimethicone 20%/Zinc Oxide 25% 56 GM Spray Bottle TOP PRN (15:53)
[2017-08-13] MEDS: Pantoprazole 40 MG Vial IVPUSH SCH (15:54)
[2017-08-13] MEDS ORDERED: Fat Emulsion 100 ML IV ONE (16:00)
[2017-08-13] MEDS: fentaNYL/Normal Saline 600 MCG/30 ML PCA Vial IV PRN (16:20)
[2017-08-13] MEDS: hydrOXYzine HCl 100 MG/2 ML SDV IM PRN (17:30)
[2017-08-13] MEDS: LORazepam 2 MG/ML MDV IVPUSH PRN (18:06)
[2017-08-13] MEDS: diphenhydrAMINE 50 MG/ML SDV IVPUSH PRN (21:01)
[2017-08-14] MEDS: LORazepam 2 MG/ML MDV IVPUSH PRN ×3 (01:17→22:23)
[2017-08-14] MEDS: 1: AA 5%/Calcium/D15W/Lytes 1,000 ML with MVI, Adult with Vitamin K 10 ML, Chromium/Copp IV SCH ×6 (02:18→15:18)
[2017-08-14] MEDS: Piperacillin/Tazobactam/Dext 4.5 GM in Premix Bag 1 BAG IV SCH ×3 (03:17→19:44)
[2017-08-14] MEDS: Enoxaparin 40 MG/0.4 ML Syringe SUBCUT SCH (09:07)
[2017-08-14] MEDS: Vancomycin 1.6 GM in Sodium Chloride 0.9% 250 ML IV SCH ×2 (09:09→21:59)
[2017-08-14] MEDS ORDERED: Bacitracin Oint 1 GM U/D Packet TOP ONE (10:45)
[2017-08-14] MEDS ORDERED: Fat Emulsion 100 ML IV ONE (16:00)
[2017-08-14] MEDS: Pantoprazole 40 MG Vial IVPUSH SCH (16:50)
[2017-08-14] MEDS: D5 1/2 NS w/ 20 mEq/L KCl 1,000 ML IV SCH (17:35)
[2017-08-14] MEDS ORDERED: Fluticasone Propionate Nasal Spray 16 GM Bottle NASBOTH PRN (18:41)
[2017-08-15] MEDS: Piperacillin/Tazobactam/Dext 4.5 GM in Premix Bag 1 BAG IV SCH (03:39)
[2017-08-15] MEDS: 1: AA 5%/Calcium/D15W/Lytes 1,000 ML with MVI, Adult with Vitamin K 10 ML, Chromium/Copp IV SCH ×6 (03:44→16:56)
[2017-08-15] MEDS ORDERED: Neostigmine Methylsulfate 1 MG/ML 5 ML Syringe ONE (07:27)
[2017-08-15] MEDS ORDERED: Glycopyrrolate 0.2 MG/ML 5 ML MDV ONE (07:27)
[2017-08-15] MEDS ORDERED: Dexamethasone 4 MG/ML SDV ONE (07:27)
[2017-08-15] MEDS ORDERED: Propofol 200 MG/20 ML SDV ONE (07:27)
[2017-08-15] MEDS ORDERED: Succinylcholine 200 MG/10 ML MDV ONE (07:27)
[2017-08-15] MEDS ORDERED: Ondansetron 4 MG/2 ML SDV ONE (07:27)
[2017-08-15] MEDS ORDERED: Rocuronium 50 MG/5 ML Vial ONE (07:27)
[2017-08-15] MEDS ORDERED: Ketamine 500 MG/5 ML MDV ONE (07:28)
[2017-08-15] MEDS ORDERED: fentaNYL 250 MCG/5 ML SDV ONE (07:28)
[2017-08-15] MEDS ORDERED: Midazolam 1 MG/ML 2 ML SDV ONE (07:28)
[2017-08-15] MEDS ORDERED: Sodium Chloride 0.9% 1,000 ML IV ONE (07:51)
[2017-08-15] MEDS: D5 1/2 NS w/ 20 mEq/L KCl 1,000 ML IV SCH (09:57)
[2017-08-15] MEDS: fentaNYL/Normal Saline 600 MCG/30 ML PCA Vial IV PRN (11:16)
[2017-08-15] MEDS: Piperacillin/Tazobactam/Dext 2.25 GM in Premix Bag 1 BAG IV SCH ×3 (12:21→23:09)
[2017-08-15] MEDS: Enoxaparin 40 MG/0.4 ML Syringe SUBCUT SCH (14:10)
[2017-08-15] MEDS ORDERED: Fat Emulsion 100 ML IV ONE (18:00)
[2017-08-15] MEDS: Pantoprazole 40 MG Vial IVPUSH SCH (18:04)
[2017-08-15] MEDS ORDERED: Enoxaparin 100 MG/1 ML Syringe SUBCUT SCH (18:48)
[2017-08-15] MEDS ORDERED: Potassium Chloride 40 MEQ in Premix Bag 1 BAG IV ONE (18:49)
--- NOTE | 2017-08-15 18:59 | PCM.CONS ---
H&P History of Present Illness - General Date of Service: 08/15/17 Admit Problem/Dx: Admission Diagnosis/Problem Admission Diagnosis/Problem Fistula Source of Information: Patient, Old Records, Provider, RN Notes Reviewed History Limitations: Reports: Other (Patient was very sleepy and lethargic is still recovering from anesthesia earlier today) - History of Present Illness Initial Comments - Free Text/Narative: Ms. Vick is a 61-year-old woman who I been asked to see by Dr. Keyes for assistance in medical management of several problems. She's had a very difficult past year, developed diverticulitis and underwent surgery with creation of a Zabala's pouch and ileostomy. Course was complicated by infection and breakdown of the wound as well as pulmonary embolism secondary to DVT. She had been previously skin grafted because of open wound was brought back to this facility on a previous admission for takedown of her ileostomy. Unfortunately postoperative course has been complicated by failure of the graft with an open abdominal wound and fistula formation. She was taken back to the operating room today for management of her fistula. Renal function has shown decline over the past few days and on review her output has been significantly over intake likely resulting in a prerenal condition with intravascular volume depletion. Blood sugars have been somewhat variable as has her blood pressure. Left Lower Abdomen Pain Score (Numeric/FACES): 5 - Related Data Allergies/Adverse Reactions: Allergies Allergy/AdvReac Type Severity Reaction Status Date / Time shellfish derived Allergy Severe Anaphylactic Verified 08/10/17 10:27 Shock oxycodone HCl Allergy Hives Verified 08/10/17 10:27 [From OxyContin] Home Medications: Home Meds Lovastatin 80 tab PO BEDTIME 05/21/14 [History] Omeprazole 40 mg PO BEDTIME 10/28/14 [History] Fluticasone Propionate [Flonase] 2 spray NS DAILY PRN 03/06/16 [History] traZODone 50 - 150 mg PO BEDTIME PRN 07/03/16 [History] Rivaroxaban [Xarelto] 20 mg PO DAILY 11/19/16 [History] Ferrous Sulfate 325 mg PO BID 05/20/17 [History] Midodrine 10 mg PO TID 05/20/17 [History] Zolpidem [Ambien] 5 mg PO BEDTIME 05/20/17 [History] Albuterol/Ipratropium [DuoNeb 3.0-0.5 MG/3 ML] 3 ml NEB Q4H PRN 07/16/17 [ History] DULoxetine [Cymbalta] 30 mg PO DAILY 07/16/17 [History] Diazepam [Valium] 1 - 1.5 tab PO TID PRN 07/16/17 [History] Fludrocortisone [Florinef] 0.1 mg PO WITHBREAKFAST 07/16/17 [History] tiZANidine [Zanaflex] 4 mg PO Q8H PRN 07/16/17 [History] Cephalexin [Cephalexin] 1 tab PO Q8H 08/10/17 [History] metroNIDAZOLE [Metronidazole] 1 tab PO QID 08/10/17 [History] Past Medical History HEENT History: Reports: Impaired Vision Other HEENT History: wears glasses Cardiovascular History: Reports: Blood Clots/VTE/DVT, High Cholesterol, Hypertension, [place], Prior Cardiac Arrest, SOB on Exertion, Syncope Respiratory History: Reports: COPD, PE, Pneumonia, Recurrent, SOB Gastrointestinal History: Reports: Chronic Diarrhea, Diverticulosis, GERD, Other (See Below) Other Gastrointestinal History: Diverticulitis, ischemic bowel; dysphagia. fistula of colon Genitourinary History: Reports: None MELT ROOM OPERATOR History: Reports: Dysfunctional Uterine Bleeding, Other OB/BYN History: hysterectomy and c-sections X3 Musculoskeletal History: Reports: Back Pain, Chronic, RA Other Musculoskeletal History: DJD Neurological History: Reports: Concussion, CVA, Migraines, Vertigo Psychiatric History: Reports: Anxiety, Depression Endocrine/Metabolic History: Reports: Obesity/BMI 30+, Vitamin D Deficiency Hematologic History: Reports: Anticoagulation Therapy, Other (See Below) Other Hematologic History: parasitic toxoplasmosis Immunologic History: Reports: Immunosuppression Other Immunologic History: " Not very good" Immune system Dermatologic History: Reports: Eczema, Seborrheic Dermatitis Other Dermatologic History: tattoos on both arms - Infectious Disease History Infectious Disease History: Reports: Chicken Pox, Measles Other Infectious Disease History: unable to obtain - Past Surgical History HEENT Surgical History: Reports: Naso-Sinus Surgery Cardiovascular Surgical History: Reports: Coronary Artery Stent, Percutaneous Transluminal Angioplasty GI Surgical History: Reports: Appendectomy, Cholecystectomy, Colon, Colonoscopy , Colostomy, EGD, Hernia, Abdominal, Other (See Below) Other GI Surgeries/Procedures: Take down of colostomy Female Surgical History: Reports: Breast Biopsy, Section, Hysterectomy, Salpingo-Oophorectomy Musculoskeletal Surgical History: Reports: Shoulder Replacement Dermatological Surgical History: Reports: Skin Graft Social & Family History - Family History Family Medical History: Noncontributory Cardiac: Reports: Heart Failure Neurological: Reports: CVA Endocrine/Metabolic: Reports: Hypothyroidism Dermatologic: Reports: Eczema - Tobacco Use Smoking Status *Q: Former Smoker Years of Tobacco use: 40 Packs/Tins Daily: 0.2 Used Tobacco, but Quit: Yes Month Tobacco Last Used: 3 months ago Second Hand Smoke Exposure: Yes - Caffeine Use Caffeine Use: Reports: Coffee - Alcohol Use Days Per Week of Alcohol Use: 0 - Recreational Drug Use Recreational Drug Use: No Drug Use in Last 12 Months: No H&P Review of Systems - Review of Systems: Review Of Systems: Unable To Obtain General: Reports: ROS unobtainable (Patient is lethargic and sleepy following anesthesia earlier today for surgery and unable to provide significant him information concerning review of systems) Exam - Exam Exam: See Below - Vital Signs Vital Signs: Last Vital Signs Temp 100 F 08/15/17 17:50 Pulse 100 08/15/17 17:50 Resp 24 H 08/15/17 17:50 BP 138/61 08/15/17 17:50 Pulse Ox 98 08/15/17 17:50 Weight: 201 lb 3.2 oz - Exam Quality Assessment: DVT Prophylaxis General: Sedated, Lethargic Neck: Supple, Trachea Midline, +2 Carotid Pulse wo Bruit Lungs: Clear to Auscultation, Normal Respiratory Effort Cardiovascular: Regular Rate, Regular Rhythm, Normal S1, Normal S2. No: Systolic Murmur, Diastolic Murmur GI/Abdominal Exam: Other Extremities: Non-Tender, No Pedal Edema Skin: Warm, Dry - Patient Data Lab Results Last 24 hrs: Laboratory Results - last 24 hr 08/15/17 08/15/17 08/15/17 Range/Units 06:06 06:06 10:30 WBC 13.8 H (4.5-11.0) K/uL RBC 3.83 (3.30-5.50) M/uL Hgb 11.4 L (12.0-15.0) g/dL Hct 34.3 L (36.0-48.0) % MCV 90 (80-98) fL MCH 30 (27-31) pg MCHC 33 (32-36) % Plt Count 645 H (150-400) K/uL Neut % (Auto) 79 H (36-66) % Lymph % (Auto) 9 L (24-44) % Benson % (Auto) 10 H (2-6) % Eos % (Auto) 2 (2-4) % Baso % (Auto) 0 (0-1) % Sodium 145 (140-148) mmol/L Potassium 3.2 L (3.6-5.2) mmol/L Chloride 108 (100-108) mmol/L Carbon Dioxide 27 (21-32) mmol/L Anion Gap 13.2 (5.0-14.0) mmol/L BUN 27 H D (7-18) mg/dL Creatinine 1.8 H (0.6-1.0) mg/dL Est Cr Clr Drug Dosing 29.86 mL/min Estimated GFR (MDRD) 29 L (>60) Glucose 149 H (74-106) mg/dL Calcium 8.4 L (8.5-10.1) mg/dL Vancomycin Trough 31.8 H (10.0-20.0) ug/mL Result Diagrams: 08/15/17 06:06 08/15/17 06:06 Consult PN Assessment/Plan Procedures: Procedures AIRWAY INHALATION TREATMENT (10/28/14) ASSAY OF ACETAMINOPHEN (05/22/14) ASSAY OF CK (CPK) (10/18/15) ASSAY OF ETHANOL (05/22/14) ASSAY OF LACTIC ACID (07/23/16) ASSAY OF LIPASE (07/23/16) ASSAY OF MAGNESIUM (07/25/17) ASSAY OF NATRIURETIC PEPTIDE (10/18/15) ASSAY OF PHOSPHORUS (07/25/17) ASSAY OF SALICYLATE (05/22/14) ASSAY OF TROPONIN QUANT (07/25/17) BLEEDING TIME TEST (07/25/17) BLOOD CULTURE FOR BACTERIA (10/28/14) BLOOD GASES ANY COMBINATION (07/23/16) BLOOD TYPING SEROLOGIC ABO (07/25/17) BLOOD TYPING SEROLOGIC RH(D) (07/25/17) C DIFF AMPLIFIED PROBE (07/25/17) C-REACTIVE PROTEIN (07/03/16) CHEST X-RAY 1 VIEW FRONTAL (01/31/17) CHEST X-RAY 2VW FRONTAL&LATL (07/25/17) COMP SCREEN MAMMOGRAM ADD-ON (03/01/15) COMPATIBILITY TEST ANTIGLOB (07/25/17) COMPATIBILITY TEST SPIN (07/25/17) COMPLETE CBC AUTOMATED (07/25/17) COMPLETE CBC W/AUTO DIFF WBC (08/07/17) COMPREHEN METABOLIC PANEL (07/25/17) CREATINE MB FRACTION (05/20/17) CT ABD & PELV W/CONTRAST (07/25/17) CT ABD & PELVIS W/O CONTRAST (03/17/17) CT ANGIOGRAPHY CHEST (07/23/16) CT HEAD/BRAIN W/O DYE (01/03/15) CT THORAX W/O DYE (04/19/15) CULTURE SCREEN ONLY (12/12/14) EGD BIOPSY SINGLE/MULTIPLE (12/12/14) ELECTROCARDIOGRAM TRACING (05/20/17) EMERGENCY DEPT VISIT (08/07/17) EMERGENCY DEPT VISIT (01/31/17) EMERGENCY DEPT VISIT (03/28/16) EMERGENCY DEPT VISIT (02/09/16) EMERGENCY DEPT VISIT (11/13/15) EMERGENCY DEPT VISIT (10/18/15) EMERGENCY DEPT VISIT (08/16/15) EMERGENCY DEPT VISIT (06/26/15) EMERGENCY DEPT VISIT (10/28/14) EMERGENCY DEPT VISIT (07/31/14) EMERGENCY DEPT VISIT (06/23/14) EMERGENCY DEPT VISIT (05/22/14) EVALUATION OF WHEEZING (11/28/14) EXTRACRANIAL BILAT STUDY (06/17/17) EXTREMITY STUDY (06/26/15) FIBRIN DEGRADATION QUANT (06/26/15) HYDRATE IV INFUSION ADD-ON (06/23/14) HYDRATION IV INFUSION INIT (05/22/14) INJECT SPINE LUMBAR/SACRAL (06/05/16) INJECT TRIGGER POINTS 3/> (06/05/16) MANUAL THERAPY 1/> REGIONS (02/05/16) MEASURE BLOOD OXYGEN LEVEL (07/25/17) METABOLIC PANEL TOTAL CA (08/07/17) MRI BRAIN STEM W/O & W/DYE (01/11/15) MRI JOINT UPR EXTREM W/O DYE (05/29/15) MRI LUMBAR SPINE W/O DYE (06/02/14) MRI NECK SPINE W/O DYE (03/01/15) NEUROMUSCULAR REEDUCATION (02/05/16) OBSERV/HOSP SAME DATE (05/22/14) OT EVALUATION (03/24/15) OVA AND PARASITES SMEARS (07/25/17) PROTHROMBIN TIME (02/09/16) PT EVALUATION (02/05/16) RBC ANTIBODY SCREEN (07/25/17) ROUTINE VENIPUNCTURE (08/07/17) SKIN SPLT GRFT T/A/L ADD-ON (11/28/16) SKIN SPLT GRFT TRNK/ARM/LEG (11/28/16) SMEAR COMPLEX STAIN (07/25/17) THER/PROPH/DIAG INJ IV PUSH (07/03/16) THER/PROPH/DIAG INJ SC/IM (11/13/15) THROMBOPLASTIN TIME PARTIAL (02/18/15) TISSUE EXAM BY PATHOLOGIST (07/25/17) TISSUE EXAM BY PATHOLOGIST (07/25/17) TTE W/DOPPLER COMPLETE (07/03/17) TX/PRO/DX INJ NEW DRUG ADDON (07/03/16) ULTRASOUND THERAPY (02/05/16) URINALYSIS AUTO W/SCOPE (07/25/17) WITHDRAWAL OF ARTERIAL BLOOD (07/23/16) WOUND PREP ADDL 100 CM (11/28/16) WOUND PREP TRK/ARM/LEG (11/28/16) X-RAY EXAM HIP UNI 2-3 VIEWS (11/13/15) X-RAY EXAM L-2 SPINE 4/>VWS (07/31/14) X-RAY EXAM OF ABDOMEN (07/25/17) X-RAY EXAM OF HIP (07/31/14) X-RAY EXAM OF SHOULDER (02/09/16) X-RAY EXAM OF WRIST (02/09/16) Problem List Initiated/Reviewed/Updated: Yes My Orders Last 24 Hours: My Active Orders 08/15/17 18:45 Sodium Chloride 0.9% [Normal Saline] 1,000 ml IV ASDIRECTED 08/15/17 18:48 Enoxaparin [Lovenox] 90 mg SUBCUT DAILY 08/15/17 18:49 Potassium Chloride [KCL 40 MEQ in Water 100 ML] 40 meq Premix Bag 1 bag IV ONETIME 08/16/17 00:45 Sodium Chloride 0.9% @ 125 MLS/HR (1000ml) Sodium Chloride 0.9% [Normal Saline] 1,000 ml IV ASDIRECTED Plan: ASSESSMENT AND RECOMMENDATIONS STATUS 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 Keyes -Continue TPN ACUTE KIDNEY INJURY-likely secondary to prerenal causes with intravascular volume depletion related to spontaneous diuresis -IV fluids for hydration overnight -Continue to closely monitor urine output and renal function HISTORY OF DEEP VEIN THROMBOSIS AND PULMONARY EMBOLISM -Lovenox 90 mg subcutaneous every 12 hours -And to restart Xarelto and she is able to take oral medications TYPE 2 DIABETES MELLITUS-blood sugars have been elevated while on TPN -Plan to add insulins to TPN with next order HYPERTENSION-blood pressures have been intermittently elevated -Consider resuming beta steffen therapy, will review again in a.m. Requesting Provider: PHILIP Date Consult Requested: 08/15/17 Reason for Consult: Postoperative medical management Patient History Reviewed: Yes Admission H&P Reviewed: Yes
[2017-08-15] MEDS: Sodium Chloride 0.9% 1,000 ML IV SCH (19:40)
[2017-08-15] MEDS: LORazepam 2 MG/ML MDV IVPUSH PRN (23:07)
[2017-08-16] MEDS: Sodium Chloride 0.9% 1,000 ML IV SCH (00:09)
[2017-08-16] MEDS ORDERED: Sodium Chloride 0.9% 1,000 ML IV SCH ×2 (00:45→08:30)
[2017-08-16] MEDS: Piperacillin/Tazobactam/Dext 2.25 GM in Premix Bag 1 BAG IV SCH ×4 (06:22→23:26)
[2017-08-16] MEDS: 1: AA 5%/Calcium/D15W/Lytes 1,000 ML with MVI, Adult with Vitamin K 10 ML, Chromium/Copp IV SCH ×9 (06:30→15:41)
--- NOTE | 2017-08-16 08:33 | PCM.CONSN ---
- General Info Date of Service: 08/16/17 Subjective Update: Ms. Vick remains very weak and lethargic, somewhat depressed. Renal function is improved following use of IV fluids through the night. Functional Status: Reports: Pain Controlled - Review of Systems General: Reports: Weakness. Denies: Fever, Chills Cardiovascular: Reports: No Symptoms Gastrointestinal: Reports: Abdominal Pain. Denies: Diarrhea, Nausea, Vomiting - Patient Data Vitals - Most Recent: Last Vital Signs Temp 101 F H 08/16/17 07:52 Pulse 55 L 08/16/17 07:52 Resp 20 08/16/17 07:52 BP 85/62 L 08/16/17 07:52 Pulse Ox 97 08/16/17 07:52 Weight - Most Recent: 197 lb 1.492 oz I&O - Last 24 Hours: Intake & Output 08/15/17 08/16/17 08/16/17 22:59 06:59 14:59 Intake Total 2503 3224 Output Total 1920 1630 500 Balance 583 1594 -500 Lab Results Last 24 Hours: Laboratory Results - last 24 hr 08/15/17 08/16/17 08/16/17 Range/Units 10:30 06:07 06:07 WBC 13.3 H (4.5-11.0) K/uL RBC 3.59 (3.30-5.50) M/uL Hgb 10.8 L (12.0-15.0) g/dL Hct 32.5 L (36.0-48.0) % MCV 91 (80-98) fL MCH 30 (27-31) pg MCHC 33 (32-36) % Plt Count 604 H (150-400) K/uL Neut % (Auto) 77 H (36-66) % Lymph % (Auto) 11 L (24-44) % [place] % (Auto) 9 H (2-6) % Eos % (Auto) 4 (2-4) % Baso % (Auto) 0 (0-1) % Sodium 143 (140-148) mmol/L Potassium 3.6 (3.6-5.2) mmol/L Chloride 111 H (100-108) mmol/L Carbon Dioxide 22 (21-32) mmol/L Anion Gap 13.6 (5.0-14.0) mmol/L BUN 30 H (7-18) mg/dL Creatinine 1.7 H (0.6-1.0) mg/dL Est Cr Clr Drug Dosing 31.61 mL/min Estimated GFR (MDRD) 31 L (>60) Glucose 129 H (74-106) mg/dL Calcium 8.4 L (8.5-10.1) mg/dL Vancomycin Trough 31.8 H (10.0-20.0) ug/mL Med Orders - Current: Current Medications Benzocaine/Menthol (Cepacol Sore Throat) 1 lozenge MUCMEM Q1H PRN PRN Reason: Sore Throat Dimethicone/Zinc Oxide (Rash Relief-Zinc Oxide [place]) 0 gm TOP ASDIRECTED PRN PRN Reason: Rash Last Admin: 08/13/17 15:53 Dose: 2 sprays Diphenhydramine HCl (Benadryl) 50 mg IVPUSH Q4H PRN PRN Reason: Itching Last Admin: 08/13/17 21:01 Dose: 50 mg Enoxaparin Sodium (Lovenox) 90 mg SUBCUT Q12H [facility] Fentanyl Citrate (Fentanyl In Ns 20 Mcg/Ml 30 Ml [employer]) 0 mcg IV ASDIRECTED PRN; Protocol PRN Reason: PAIN Last Admin: 08/13/17 16:20 Dose: 600 mcg Fluticasone Propionate (Flonase) 0 gm NASBOTH DAILY PRN PRN Reason: Congestion Heparin Sodium (Porcine) (Heparin Lock Flush 100 Units/Ml) 500 units FLUSH 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 Last Admin: 08/15/17 06:04 Dose: 500 units Hydroxyzine HCl (Vistaril) 50 - 100 mg IM Q4H PRN PRN Reason: Nausea Last Admin: 08/13/17 17:30 Dose: 100 mg Vancomycin HCl 1.6 gm/ Sodium (Chloride) 250 mls @ 250 mls/hr IV Q12H [facility] Last Admin: 08/14/17 21:59 Dose: 250 mls/hr Multivitamins/Minerals 10 ml/Chromium/Copper/Manganese/Seleni/Zn 1 ml/ Amino Ac/ Electrol/Dextrose/Calcium 1,011 mls @ 76 mls/hr IV .BY DURATION [facility] Last Admin: 08/15/17 16:56 Dose: 76 mls/hr Amino Ac/Electrol/Dextrose/Calcium (Clinimix E 01/27) 1,000 mls @ 76 mls/hr IV .BY DURATION [facility] Last Admin: 08/16/17 06:30 Dose: 76 mls/hr Piperacillin/Tazobactam/ (Dextrose 2.25 gm/ Premix) 50 mls @ 100 mls/hr IV Q6H [facility] Last Admin: 08/16/17 06:22 Dose: 100 mls/hr Sodium Chloride (Normal Saline) 1,000 mls @ 50 mls/hr IV ASDIRECTED [facility] Lorazepam (Ativan) 0.5 - 1.5 mg IVPUSH Q6H PRN PRN Reason: Anxiety Last Admin: 08/15/17 23:07 Dose: 1 mg Naloxone HCl (Narcan) 0.1 mg IV ASDIRECTED PRN PRN Reason: RESP. DEPRESSION Ondansetron HCl (Zofran) 4 mg IVPUSH Q4H PRN PRN Reason: Nausea/Vomiting Last Admin: 08/13/17 13:44 Dose: 4 mg Pantoprazole Sodium (Protonix Iv) 40 mg IVPUSH Q24H [facility] Last Admin: 08/15/17 18:04 Dose: 40 mg Discontinued Medications Bacitracin (Bacitracin Oint 1 Gm) 1 dose TOP ONETIME ONE Stop: 08/14/17 10:46 Last Admin: 08/14/17 11:00 Dose: 1 dose Dexamethasone (Dexamethasone) Confirm Administered Dose 4 mg .ROUTE .STK-MED ONE Stop: 08/10/17 10:37 Dexamethasone (Dexamethasone) Confirm Administered Dose 4 mg .ROUTE .STK-MED ONE Stop: 08/11/17 00:15 Dexamethasone (Dexamethasone) Confirm Administered Dose 4 mg .ROUTE .STK-MED ONE Stop: 08/12/17 15:54 Dexamethasone (Dexamethasone) Confirm Administered Dose 4 mg .ROUTE .STK-MED ONE Stop: 08/15/17 07:28 Enoxaparin Sodium (Lovenox) 40 mg SUBCUT DAILY [facility] Last Admin: 08/15/17 14:10 Dose: 40 mg Enoxaparin Sodium (Lovenox) 90 mg SUBCUT DAILY [facility] Fentanyl (Sublimaze) Confirm Administered Dose 250 mcg .ROUTE .STK-MED ONE Stop: 08/10/17 10:37 Fentanyl (Sublimaze) Confirm Administered Dose 250 mcg .ROUTE .STK-MED ONE Stop: 08/10/17 13:06 Fentanyl (Sublimaze) Confirm Administered Dose 250 mcg .ROUTE .STK-MED ONE Stop: 08/11/17 00:15 Fentanyl (Sublimaze) Confirm Administered Dose 250 mcg .ROUTE .STK-MED ONE Stop: 08/12/17 15:53 Fentanyl (Sublimaze) Confirm Administered Dose 250 mcg .ROUTE .STK-MED ONE Stop: 08/15/17 07:29 Fentanyl Citrate (Fentanyl In Ns 20 Mcg/Ml 30 Ml [employer]) Confirm Administered Dose 600 mcg .ROUTE .STK-MED ONE Stop: 08/10/17 15:41 Last Admin: 08/10/17 16:35 Dose: 10 mcg Glycopyrrolate (Robinul) Confirm Administered Dose 1 mg .ROUTE .STK-MED ONE Stop: 08/10/17 10:37 Glycopyrrolate (Robinul) Confirm Administered Dose 1 mg .ROUTE .STK-MED ONE Stop: 08/11/17 00:15 Glycopyrrolate (Robinul) Confirm Administered Dose 1 mg .ROUTE .STK-MED ONE Stop: 08/12/17 15:54 Glycopyrrolate (Robinul) Confirm Administered Dose 1 mg .ROUTE .STK-MED ONE Stop: 08/15/17 07:28 Heparin Sodium (Porcine) (Heparin Lock Flush 100 Units/Ml) Confirm Administered Dose 1,000 units .ROUTE .STK-MED ONE Stop: 08/10/17 10:55 Last Admin: 08/10/17 12:15 Dose: 1,000 units Heparin Sodium (Porcine) (Heparin Lock Flush 100 Units/Ml) Confirm Administered Dose 500 units .ROUTE .STK-MED ONE Stop: 08/12/17 15:46 Last Admin: 08/12/17 16:13 Dose: Not Given Sodium Chloride (Normal Saline) 1,000 mls @ 100 mls/hr IV ASDIRECTED [facility] Last Admin: 08/11/17 09:53 Dose: 100 mls/hr Piperacillin/Tazobactam/ (Dextrose 4.5 gm/ Premix) 100 mls @ 200 mls/hr IV ONETIME ONE Stop: 08/10/17 11:29 Last Admin: 08/10/17 11:09 Dose: 200 mls/hr Lactated Ringer's (Ringers, Lactated) Confirm Administered Dose 1,000 mls @ as directed .ROUTE .STK-MED ONE Stop: 08/10/17 15:24 Lactated Ringer's (Ringers, Lactated) Confirm Administered Dose 1,000 mls @ as directed .ROUTE .STK-MED ONE Stop: 08/10/17 15:24 Piperacillin Sod/Tazobactam (Sod 4.5 gm/ Sodium Chloride) 100 mls @ 200 mls/hr IV Q8H [facility] Last Admin: 08/11/17 04:06 Dose: 200 mls/hr Sodium Chloride (Normal Saline) 1,000 mls @ 500 mls/hr IV ASDIRECTED [facility] Last Infusion: 08/10/17 20:36 Dose: 0 mls/hr Piperacillin/Tazobactam/ (Dextrose 4.5 gm/ Premix) 100 mls @ 200 mls/hr IV Q8H [facility] Last Admin: 08/15/17 03:39 Dose: 200 mls/hr Sodium Chloride (Normal Saline) 1,000 mls @ 125 mls/hr IV ASDIRECTED [facility] Last Admin: 08/12/17 20:25 Dose: 125 mls/hr Vancomycin HCl 1 gm/ Sodium (Chloride) 250 mls @ 150 mls/hr IV ONETIME ONE Stop: 08/11/17 21:37 Last Admin: 08/11/17 20:27 Dose: Not Given Vancomycin HCl 1.5 gm/ Sodium (Chloride) 250 mls @ 166.667 mls/hr IV Q12H [facility] Last Admin: 08/13/17 10:19 Dose: Not Given Potassium Chloride 20 meq/Lidocaine HCl 2 ml/ Sodium Chloride 112 mls @ 56 mls/ hr IV Q2H [facility] Stop: 08/12/17 14:59 Last Admin: 08/12/17 13:17 Dose: 56 mls/hr Potassium Chloride 20 meq/ (Premix) 100 mls @ 50 mls/hr IV ONETIME ONE Stop: 08/12/17 17:59 Last Admin: 08/12/17 15:38 Dose: 50 mls/hr Potassium Chloride/Dextrose/Sod Cl (D5 1/2 Ns W/ 20 Meq/L Kcl) 1,000 mls @ 25 mls/hr IV ASDIRECTED [facility] Last Admin: 08/15/17 09:57 Dose: 25 mls/hr Multivitamins/Minerals 10 ml/Chromium/Copper/Manganese/Seleni/Zn 1 ml/ Amino Ac/ Electrol/Dextrose/Calcium 1,011 mls @ 76 mls/hr IV .BY DURATION [facility] Stop: 08/14/17 14:30 Last Admin: 08/13/17 13:11 Dose: 76 mls/hr Amino Ac/Electrol/Dextrose/Calcium (Clinimix E 01/27) 1,000 mls @ 76 mls/hr IV .BY DURATION [facility] Stop: 08/14/17 14:30 Last Admin: 08/14/17 02:18 Dose: 76 mls/hr Fat Emulsion Intravenous (Intralipid 20%) 100 mls @ 8.5 mls/hr IV ONETIME ONE Stop: 08/14/17 03:45 Last Admin: 08/13/17 15:54 Dose: 8.5 mls/hr Fat Emulsion Intravenous (Intralipid 20%) 100 mls @ 8.3 mls/hr IV ONETIME ONE Stop: 08/15/17 04:02 Last Admin: 08/14/17 15:32 Dose: 8.3 mls/hr Sodium Chloride (Normal Saline) 1,000 mls @ 999 mls/hr IV .BOLUS ONE Stop: 08/15/17 08:51 Last Admin: 08/15/17 07:55 Dose: 999 mls/hr Fat Emulsion Intravenous (Intralipid 20%) 100 mls @ 8.5 mls/hr IV ONETIME ONE Stop: 08/16/17 05:45 Last Admin: 08/15/17 17:45 Dose: 8.5 mls/hr Sodium Chloride (Normal Saline) 1,000 mls @ 250 mls/hr IV ASDIRECTED [facility] Stop: 08/16/17 00:46 Last Admin: 08/16/17 00:09 Dose: 250 mls/hr Sodium Chloride (Normal Saline) 1,000 mls @ 125 mls/hr IV ASDIRECTED [facility] Last Admin: 08/16/17 06:50 Dose: 125 mls/hr Potassium Chloride 40 meq/ (Premix) 100 mls @ 25 mls/hr IV ONETIME ONE Stop: 08/15/17 22:48 Last Admin: 08/15/17 19:29 Dose: 25 mls/hr Ketamine HCl (Ketalar) Confirm Administered Dose 500 mg .ROUTE .STK-MED ONE Stop: 08/11/17 00:16 Ketamine HCl (Ketalar) Confirm Administered Dose 500 mg .ROUTE .STK-MED ONE Stop: 08/15/17 07:29 Lidocaine HCl (Xylocaine 2%) Confirm Administered Dose 100 mg .ROUTE .STK-MED ONE Stop: 08/12/17 15:54 Lidocaine/Epinephrine (Xylocaine 1% With Epinephrine 1:100,000) Confirm Administered Dose 50 ml .ROUTE .STK-MED ONE Stop: 08/12/17 11:51 Meropenem (Merrem) Confirm Administered Dose 500 mg .ROUTE .STK-MED ONE Stop: 08/10/17 14:06 Last Admin: 08/10/17 14:14 Dose: 500 mg Midazolam HCl (Versed 1 Mg/Ml) Confirm Administered Dose 2 mg .ROUTE .STK-MED ONE Stop: 08/15/17 07:29 Neostigmine Methylsulfate (Neostigmine) Confirm Administered Dose 5 mg .ROUTE .STK-MED ONE Stop: 08/10/17 10:37 Neostigmine Methylsulfate (Neostigmine) Confirm Administered Dose 5 mg .ROUTE .STK-MED ONE Stop: 08/11/17 00:15 Neostigmine Methylsulfate (Neostigmine) Confirm Administered Dose 5 mg .ROUTE .STK-MED ONE Stop: 08/12/17 15:54 Neostigmine Methylsulfate (Neostigmine) Confirm Administered Dose 5 mg .ROUTE .STK-MED ONE Stop: 08/15/17 07:28 Check Scopolamine (Patch) 0 each .XX DAILY [facility] Stop: 08/13/17 09:01 Last Admin: 08/13/17 10:08 Dose: Not Given Ondansetron HCl (Zofran) Confirm Administered Dose 4 mg .ROUTE .STK-MED ONE Stop: 08/10/17 10:37 Ondansetron HCl (Zofran) Confirm Administered Dose 8 mg .ROUTE .STK-MED ONE Stop: 08/10/17 16:21 Ondansetron HCl (Zofran) Confirm Administered Dose 4 mg .ROUTE .STK-MED ONE Stop: 08/11/17 00:15 Ondansetron HCl (Zofran) Confirm Administered Dose 4 mg .ROUTE .STK-MED ONE Stop: 08/12/17 15:54 Ondansetron HCl (Zofran) Confirm Administered Dose 4 mg .ROUTE .ST-MED ONE Stop: 08/15/17 07:28 Propofol (Diprivan 20 Ml) Confirm Administered Dose 200 mg .ROUTE .STK-MED ONE Stop: 08/10/17 10:37 Propofol (Diprivan 20 Ml) Confirm Administered Dose 200 mg .ROUTE .STK-MED ONE Stop: 08/12/17 15:54 Propofol (Diprivan 20 Ml) Confirm Administered Dose 200 mg .ROUTE .STK-MED ONE Stop: 08/15/17 07:28 Rocuronium [place] (Zemuron) Confirm Administered Dose 50 mg .ROUTE .ST-MED ONE Stop: 08/10/17 10:37 Rocuronium [place] (Zemuron) Confirm Administered Dose 50 mg .ROUTE .ST-MED ONE Stop: 08/10/17 13:50 Rocuronium [place] (Zemuron) Confirm Administered Dose 50 mg .ROUTE .ST-MED ONE Stop: 08/11/17 00:15 Rocuronium [place] (Zemuron) Confirm Administered Dose 50 mg .ROUTE .ST-MED ONE Stop: 08/12/17 15:54 Rocuronium [place] (Zemuron) Confirm Administered Dose 50 mg .ROUTE .ST-MED ONE Stop: 08/15/17 07:28 Scopolamine (Transderm-Scop) 1.5 mg TOP ONETIME ONE Stop: 08/10/17 16:20 Last Admin: 08/10/17 17:23 Dose: 1.5 mg Succinylcholine Chloride (Quelicin) Confirm Administered Dose 200 mg .ROUTE .ST -MED ONE Stop: 08/10/17 10:37 Succinylcholine Chloride (Quelicin) Confirm Administered Dose 200 mg .ROUTE .ST -MED ONE Stop: 08/11/17 00:15 Succinylcholine Chloride (Quelicin) Confirm Administered Dose 200 mg .ROUTE .ST -MED ONE Stop: 08/12/17 15:54 Succinylcholine Chloride (Quelicin) Confirm Administered Dose 200 mg .ROUTE .STK -MED ONE Stop: 08/15/17 07:28 Vancomycin HCl (Vancomycin) 1 gm IV .PHARMACY TO DOSE [facility] Stop: 08/12/17 09:00 - Exam General: Lethargic Lungs: Clear to Auscultation, Normal Respiratory Effort Cardiovascular: Regular Rate, Regular Rhythm, No Murmurs GI/Abdominal Exam: Soft, No Distention, Other (Open abdominal wound) Extremities: Non-Tender, No Pedal Edema Skin: Warm, Dry Consult PN Assessment/Plan Procedures: Procedures AIRWAY INHALATION TREATMENT (10/28/14) ASSAY OF ACETAMINOPHEN (05/22/14) ASSAY OF CK (CPK) (10/18/15) ASSAY OF ETHANOL (05/22/14) ASSAY OF LACTIC ACID (07/23/16) ASSAY OF LIPASE (07/23/16) ASSAY OF MAGNESIUM (07/25/17) ASSAY OF NATRIURETIC PEPTIDE (10/18/15) ASSAY OF PHOSPHORUS (07/25/17) ASSAY OF SALICYLATE (05/22/14) ASSAY OF TROPONIN QUANT (07/25/17) BLEEDING TIME TEST (07/25/17) BLOOD CULTURE FOR BACTERIA (10/28/14) BLOOD GASES ANY COMBINATION (07/23/16) BLOOD TYPING SEROLOGIC ABO (07/25/17) BLOOD TYPING SEROLOGIC RH(D) (07/25/17) C DIFF AMPLIFIED PROBE (07/25/17) C-REACTIVE PROTEIN (07/03/16) CHEST X-RAY 1 VIEW FRONTAL (01/31/17) CHEST X-RAY 2VW FRONTAL&LATL (07/25/17) COMP SCREEN MAMMOGRAM ADD-ON (03/01/15) COMPATIBILITY TEST ANTIGLOB (07/25/17) COMPATIBILITY TEST SPIN (07/25/17) COMPLETE CBC AUTOMATED (07/25/17) COMPLETE CBC W/AUTO DIFF WBC (08/07/17) COMPREHEN METABOLIC PANEL (07/25/17) CREATINE MB FRACTION (05/20/17) CT ABD & PELV W/CONTRAST (07/25/17) CT ABD & PELVIS W/O CONTRAST (03/17/17) CT ANGIOGRAPHY CHEST (07/23/16) CT HEAD/BRAIN W/O DYE (01/03/15) CT THORAX W/O DYE (04/19/15) CULTURE SCREEN ONLY (12/12/14) EGD BIOPSY SINGLE/MULTIPLE (12/12/14) ELECTROCARDIOGRAM TRACING (05/20/17) EMERGENCY DEPT VISIT (08/07/17) EMERGENCY DEPT VISIT (01/31/17) EMERGENCY DEPT VISIT (03/28/16) EMERGENCY DEPT VISIT (02/09/16) EMERGENCY DEPT VISIT (11/13/15) EMERGENCY DEPT VISIT (10/18/15) EMERGENCY DEPT VISIT (08/16/15) EMERGENCY DEPT VISIT (06/26/15) EMERGENCY DEPT VISIT (10/28/14) EMERGENCY DEPT VISIT (07/31/14) EMERGENCY DEPT VISIT (06/23/14) EMERGENCY DEPT VISIT (05/22/14) EVALUATION OF WHEEZING (11/28/14) EXTRACRANIAL BILAT STUDY (06/17/17) EXTREMITY STUDY (06/26/15) FIBRIN DEGRADATION QUANT (06/26/15) HYDRATE IV INFUSION ADD-ON (06/23/14) HYDRATION IV INFUSION INIT (05/22/14) INJECT SPINE LUMBAR/SACRAL (06/05/16) INJECT TRIGGER POINTS 3/> (06/05/16) MANUAL THERAPY 1/> REGIONS (02/05/16) MEASURE BLOOD OXYGEN LEVEL (07/25/17) METABOLIC PANEL TOTAL CA (08/07/17) MRI BRAIN STEM W/O & W/DYE (01/11/15) MRI JOINT UPR EXTREM W/O DYE (05/29/15) MRI LUMBAR SPINE W/O DYE (06/02/14) MRI NECK SPINE W/O DYE (03/01/15) NEUROMUSCULAR REEDUCATION (02/05/16) OBSERV/HOSP SAME DATE (05/22/14) OT EVALUATION (03/24/15) OVA AND PARASITES SMEARS (07/25/17) PROTHROMBIN TIME (02/09/16) PT EVALUATION (02/05/16) RBC ANTIBODY SCREEN (07/25/17) ROUTINE VENIPUNCTURE (08/07/17) SKIN SPLT GRFT T/A/L ADD-ON (11/28/16) SKIN SPLT GRFT TRNK/ARM/LEG (11/28/16) SMEAR COMPLEX STAIN (07/25/17) THER/PROPH/DIAG INJ IV PUSH (07/03/16) THER/PROPH/DIAG INJ SC/IM (11/13/15) THROMBOPLASTIN TIME PARTIAL (02/18/15) TISSUE EXAM BY PATHOLOGIST (07/25/17) TISSUE EXAM BY PATHOLOGIST (07/25/17) TTE W/DOPPLER COMPLETE (07/03/17) TX/PRO/DX INJ NEW DRUG ADDON (07/03/16) ULTRASOUND THERAPY (02/05/16) URINALYSIS AUTO W/SCOPE (07/25/17) WITHDRAWAL OF ARTERIAL BLOOD (07/23/16) WOUND PREP ADDL 100 CM (11/28/16) WOUND PREP TRK/ARM/LEG (11/28/16) X-RAY EXAM HIP UNI 2-3 VIEWS (11/13/15) X-RAY EXAM L-2 SPINE 4/>VWS (07/31/14) X-RAY EXAM OF ABDOMEN (07/25/17) X-RAY EXAM OF HIP (07/31/14) X-RAY EXAM OF SHOULDER (02/09/16) X-RAY EXAM OF WRIST (02/09/16) Problem List Initiated/Reviewed/Updated: Yes My Orders Last 24 Hours: My Active Orders 08/16/17 08:30 Enoxaparin [Lovenox] 90 mg SUBCUT Q12H Sodium Chloride 0.9% @ 50 MLS/HR(1000ml) Sodium Chloride 0.9% [Normal Saline] 1 ,000 ml IV ASDIRECTED 08/17/17 05:00 BASIC METABOLIC PANEL,BMP [CHEM] Timed CBC WITH AUTO DIFF [HEME] Timed MAGNESIUM [CHEM] Timed Plan: ASSESSMENT AND RECOMMENDATIONS STATUS 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 Keyes -Continue TPN ACUTE KIDNEY INJURY-likely secondary to prerenal causes with intravascular volume depletion related to spontaneous diuresis. Renal function has improved with IV fluids -Decrease IV rate to 50 mL per hour -Continue to closely monitor urine output and renal function HISTORY OF DEEP VEIN THROMBOSIS AND PULMONARY EMBOLISM -Lovenox 90 mg subcutaneous every 12 hours -Plan to restart Xarelto when she is able to take oral medications TYPE 2 DIABETES MELLITUS-blood sugars have been elevated while on TPN -Continue insulin in TPN HYPERTENSION-blood pressures have been intermittently elevated -Consider resuming beta steffen therapy, will review again in a.m.
[2017-08-16] MEDS: Enoxaparin 100 MG/1 ML Syringe SUBCUT SCH ×2 (09:24→20:24)
[2017-08-16] MEDS: Pantoprazole 40 MG Vial IVPUSH SCH (15:56)
[2017-08-16] MEDS ORDERED: Vancomycin 1.3 GM in Sodium Chloride 0.9% 250 ML IV ONE (16:00)
[2017-08-16] MEDS ORDERED: Fat Emulsion 100 ML IV ONE (16:00)
[2017-08-16] MEDS: LORazepam 2 MG/ML MDV IVPUSH PRN (20:23)
[2017-08-16] MEDS: diphenhydrAMINE 50 MG/ML SDV IVPUSH PRN (21:14)
[2017-08-17] MEDS: 1: AA 5%/Calcium/D15W/Lytes 1,000 ML with MVI, Adult with Vitamin K 10 ML, Chromium/Copp IV SCH ×3 (05:13)
[2017-08-17] MEDS: Piperacillin/Tazobactam/Dext 2.25 GM in Premix Bag 1 BAG IV SCH ×3 (05:58→18:21)
[2017-08-17] MEDS: Enoxaparin 100 MG/1 ML Syringe SUBCUT SCH ×2 (08:18→21:52)
[2017-08-17] MEDS ORDERED: Potassium Chloride 40 MEQ in Premix Bag 1 BAG IV ONE (08:30)
[2017-08-17] MEDS: Sodium Chloride 0.9% 1,000 ML IV SCH ×2 (09:21→13:55)
--- NOTE | 2017-08-17 09:25 | PCM.CONSN ---
- General Info Date of Service: 08/17/17 Subjective Update: Ms. Vick is been stable over the past 24 hours, vital signs have been good and she has remained afebrile. Renal function slightly worse over the last 24 hours, during that period of time output was over intake likely leading to some ongoing intravascular volume depletion. We'll give IV fluids again today and plan to recheck labs again in the morning. She is having difficulty with ongoing back pain which is chronic, denies significant abdominal pain, shortness of breath. She was able to get up into the chair 2 times yesterday and walk short distances. - Review of Systems General: Reports: Fever, Weakness. Denies: Chills Pulmonary: Reports: No Symptoms Cardiovascular: Reports: No Symptoms Gastrointestinal: Reports: No Symptoms Musculoskeletal: Reports: Back Pain - Patient Data Vitals - Most Recent: Last Vital Signs Temp 99.0 F 08/17/17 08:00 Pulse 102 H 08/17/17 08:00 Resp 26 H 08/17/17 08:00 BP 159/69 H 08/17/17 08:00 Pulse Ox 96 08/17/17 05:43 Weight - Most Recent: 188 lb 14.978 oz I&O - Last 24 Hours: Intake & Output 08/16/17 08/17/17 08/17/17 22:59 06:59 14:59 Intake Total 1866 1675 Output Total 2145 1120 725 Balance -279 555 -725 Lab Results Last 24 Hours: Laboratory Results - last 24 hr 08/16/17 08/17/17 08/17/17 Range/Units 09:40 04:30 04:30 WBC 14.1 H (4.5-11.0) K/uL RBC 3.82 (3.30-5.50) M/uL Hgb 11.3 L (12.0-15.0) g/dL Hct 33.6 L (36.0-48.0) % MCV 88 (80-98) fL MCH 30 (27-31) pg MCHC 34 (32-36) % Plt Count 689 H (150-400) K/uL Neut % (Auto) 73 H (36-66) % Lymph % (Auto) 13 L (24-44) % Parke % (Auto) 9 H (2-6) % Eos % (Auto) 4 (2-4) % Baso % (Auto) 0 (0-1) % Sodium 141 (140-148) mmol/L Potassium 3.2 L (3.6-5.2) mmol/L Chloride 109 H (100-108) mmol/L Carbon Dioxide 21 (21-32) mmol/L Anion Gap 14.2 H (5.0-14.0) mmol/L BUN 29 H (7-18) mg/dL Creatinine 1.8 H (0.6-1.0) mg/dL Est Cr Clr Drug Dosing 29.86 mL/min Estimated GFR (MDRD) 29 L (>60) Glucose 129 H (74-106) mg/dL Calcium 8.6 (8.5-10.1) mg/dL Phosphorus 4.3 (2.5-4.9) mg/dL Magnesium 2.1 (1.8-2.4) mg/dL Total Bilirubin 0.4 D (0.2-1.0) mg/dL AST 15 (15-37) U/L ALT 11 L (12-78) U/L Alkaline Phosphatase 131 H (46-116) U/L Total Protein 6.3 L (6.4-8.2) g/dL Albumin 1.5 L (3.4-5.0) g/dL Globulin 4.8 H (2.3-3.5) g/dL Albumin/Globulin Ratio 0.3 L (1.2-2.2) Vancomycin Trough 19.6 (10.0-20.0) ug/mL Med Orders - Current: Current Medications Benzocaine/Menthol (Cepacol Sore Throat) 1 lozenge MUCMEM Q1H PRN PRN Reason: Sore Throat Dimethicone/Zinc Oxide (Rash Relief-Zinc Oxide [place]) 0 gm TOP ASDIRECTED PRN PRN Reason: Rash Last Admin: 08/13/17 15:53 Dose: 2 sprays Diphenhydramine HCl (Benadryl) 50 mg IVPUSH Q4H PRN PRN Reason: Itching Last Admin: 08/16/17 21:14 Dose: 50 mg Enoxaparin Sodium (Lovenox) 90 mg SUBCUT Q12H [facility] Last Admin: 08/17/17 08:18 Dose: 90 mg Fentanyl Citrate (Fentanyl In Ns 20 Mcg/Ml 30 Ml 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) 0 mcg IV ASDIRECTED PRN; Protocol PRN Reason: PAIN Last Admin: 08/13/17 16:20 Dose: 600 mcg Fluticasone Propionate (Flonase) 0 gm NASBOTH DAILY PRN PRN Reason: Congestion Heparin Sodium (Porcine) (Heparin Lock Flush 100 Units/Ml) 500 units FLUSH 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 Last Admin: 08/17/17 04:45 Dose: 500 units Hydroxyzine HCl (Vistaril) 50 - 100 mg IM Q4H PRN PRN Reason: Nausea Last Admin: 08/13/17 17:30 Dose: 100 mg Piperacillin/Tazobactam/ (Dextrose 2.25 gm/ Premix) 50 mls @ 100 mls/hr IV Q6H [facility] Last Admin: 08/17/17 05:58 Dose: 100 mls/hr Multivitamins/Minerals 10 ml/Chromium/Copper/Manganese/Seleni/Zn 1 ml/ Amino Ac/ Electrol/Dextrose/Calcium 1,011 mls @ 76 mls/hr IV .BY DURATION [facility] Stop: 08/17/17 17:00 Last Admin: 08/16/17 15:41 Dose: 76 mls/hr Amino Ac/Electrol/Dextrose/Calcium (Clinimix E 01/27) 1,000 mls @ 76 mls/hr IV .BY DURATION [facility] Stop: 08/17/17 17:00 Last Admin: 08/17/17 05:13 Dose: 76 mls/hr Potassium Chloride/Sodium Chloride (Normal Saline With 20 Meq Kcl) 1,000 mls @ 125 mls/hr IV ASDIRECTED [facility] Sodium Chloride (Normal Saline) 1,000 mls @ 250 mls/hr IV ASDIRECTED [facility] Stop: 08/17/17 16:01 Fat Emulsion Intravenous (Intralipid 20%) 100 mls @ 8.3 mls/hr IV ONETIME ONE Stop: 08/18/17 04:02 Multivitamins/Minerals 10 ml/Chromium/Copper/Manganese/Seleni/Zn 1 ml/ Amino Ac/ Electrol/Dextrose/Calcium 1,011 mls @ 76 mls/hr IV .BY DURATION [facility] Amino Ac/Electrol/Dextrose/Calcium (Clinimix E 02/01) 1,000 mls @ 76 mls/hr IV .BY DURATION [facility] Lorazepam (Ativan) 0.5 - 1.5 mg IVPUSH Q6H PRN PRN Reason: Anxiety Last Admin: 08/16/17 20:23 Dose: 1.5 mg Naloxone HCl (Narcan) 0.1 mg IV ASDIRECTED PRN PRN Reason: RESP. DEPRESSION Ondansetron HCl (Zofran) 4 mg IVPUSH Q4H PRN PRN Reason: Nausea/Vomiting Last Admin: 08/13/17 13:44 Dose: 4 mg Pantoprazole Sodium (Protonix Iv) 40 mg IVPUSH Q24H [facility] Last Admin: 08/16/17 15:56 Dose: 40 mg Discontinued Medications Bacitracin (Bacitracin Oint 1 Gm) 1 dose TOP ONETIME ONE Stop: 08/14/17 10:46 Last Admin: 08/14/17 11:00 Dose: 1 dose Dexamethasone (Dexamethasone) Confirm Administered Dose 4 mg .ROUTE .STK-MED ONE Stop: 08/10/17 10:37 Dexamethasone (Dexamethasone) Confirm Administered Dose 4 mg .ROUTE .STK-MED ONE Stop: 08/11/17 00:15 Dexamethasone (Dexamethasone) Confirm Administered Dose 4 mg .ROUTE .STK-MED ONE Stop: 08/12/17 15:54 Dexamethasone (Dexamethasone) Confirm Administered Dose 4 mg .ROUTE .STK-MED ONE Stop: 08/15/17 07:28 Enoxaparin Sodium (Lovenox) 40 mg SUBCUT DAILY [facility] Last Admin: 08/15/17 14:10 Dose: 40 mg Enoxaparin Sodium (Lovenox) 90 mg SUBCUT DAILY [facility] Fentanyl (Sublimaze) Confirm Administered Dose 250 mcg .ROUTE .STK-MED ONE Stop: 08/10/17 10:37 Fentanyl (Sublimaze) Confirm Administered Dose 250 mcg .ROUTE .STK-MED ONE Stop: 08/10/17 13:06 Fentanyl (Sublimaze) Confirm Administered Dose 250 mcg .ROUTE .STK-MED ONE Stop: 08/11/17 00:15 Fentanyl (Sublimaze) Confirm Administered Dose 250 mcg .ROUTE .STK-MED ONE Stop: 08/12/17 15:53 Fentanyl (Sublimaze) Confirm Administered Dose 250 mcg .ROUTE .STK-MED ONE Stop: 08/15/17 07:29 Fentanyl Citrate (Fentanyl In Ns 20 Mcg/Ml 30 Ml Machine Tack Puller) Confirm Administered Dose 600 mcg .ROUTE .STK-MED ONE Stop: 08/10/17 15:41 Last Admin: 08/10/17 16:35 Dose: 10 mcg Glycopyrrolate (Robinul) Confirm Administered Dose 1 mg .ROUTE .STK-MED ONE Stop: 08/10/17 10:37 Glycopyrrolate (Robinul) Confirm Administered Dose 1 mg .ROUTE .STK-MED ONE Stop: 08/11/17 00:15 Glycopyrrolate (Robinul) Confirm Administered Dose 1 mg .ROUTE .STK-MED ONE Stop: 08/12/17 15:54 Glycopyrrolate (Robinul) Confirm Administered Dose 1 mg .ROUTE .STK-MED ONE Stop: 08/15/17 07:28 Heparin Sodium (Porcine) (Heparin Lock Flush 100 Units/Ml) Confirm Administered Dose 1,000 units .ROUTE .STK-MED ONE Stop: 08/10/17 10:55 Last Admin: 08/10/17 12:15 Dose: 1,000 units Heparin Sodium (Porcine) (Heparin Lock Flush 100 Units/Ml) Confirm Administered Dose 500 units .ROUTE .STK-MED ONE Stop: 08/12/17 15:46 Last Admin: 08/12/17 16:13 Dose: Not Given Sodium Chloride (Normal Saline) 1,000 mls @ 100 mls/hr IV ASDIRECTED [facility] Last Admin: 08/11/17 09:53 Dose: 100 mls/hr Piperacillin/Tazobactam/ (Dextrose 4.5 gm/ Premix) 100 mls @ 200 mls/hr IV ONETIME ONE Stop: 08/10/17 11:29 Last Admin: 08/10/17 11:09 Dose: 200 mls/hr Lactated Ringer's (Ringers, Lactated) Confirm Administered Dose 1,000 mls @ as directed .ROUTE .STK-MED ONE Stop: 08/10/17 15:24 Lactated Ringer's (Ringers, Lactated) Confirm Administered Dose 1,000 mls @ as directed .ROUTE .STK-MED ONE Stop: 08/10/17 15:24 Piperacillin Sod/Tazobactam (Sod 4.5 gm/ Sodium Chloride) 100 mls @ 200 mls/hr IV Q8H [facility] Last Admin: 08/11/17 04:06 Dose: 200 mls/hr Sodium Chloride (Normal Saline) 1,000 mls @ 500 mls/hr IV ASDIRECTED [facility] Last Infusion: 08/10/17 20:36 Dose: 0 mls/hr Piperacillin/Tazobactam/ (Dextrose 4.5 gm/ Premix) 100 mls @ 200 mls/hr IV Q8H [facility] Last Admin: 08/15/17 03:39 Dose: 200 mls/hr Sodium Chloride (Normal Saline) 1,000 mls @ 125 mls/hr IV ASDIRECTED [facility] Last Admin: 08/12/17 20:25 Dose: 125 mls/hr Vancomycin HCl 1 gm/ Sodium (Chloride) 250 mls @ 150 mls/hr IV ONETIME ONE Stop: 08/11/17 21:37 Last Admin: 08/11/17 20:27 Dose: Not Given Vancomycin HCl 1.5 gm/ Sodium (Chloride) 250 mls @ 166.667 mls/hr IV Q12H [facility] Last Admin: 08/13/17 10:19 Dose: Not Given Potassium Chloride 20 meq/Lidocaine HCl 2 ml/ Sodium Chloride 112 mls @ 56 mls/ hr IV Q2H [facility] Stop: 08/12/17 14:59 Last Admin: 08/12/17 13:17 Dose: 56 mls/hr Potassium Chloride 20 meq/ (Premix) 100 mls @ 50 mls/hr IV ONETIME ONE Stop: 08/12/17 17:59 Last Admin: 08/12/17 15:38 Dose: 50 mls/hr Vancomycin HCl 1.6 gm/ Sodium (Chloride) 250 mls @ 250 mls/hr IV Q12H [facility] Last Admin: 08/14/17 21:59 Dose: 250 mls/hr Potassium Chloride/Dextrose/Sod Cl (D5 1/2 Ns W/ 20 Meq/L Kcl) 1,000 mls @ 25 mls/hr IV ASDIRECTED [facility] Last Admin: 08/15/17 09:57 Dose: 25 mls/hr Multivitamins/Minerals 10 ml/Chromium/Copper/Manganese/Seleni/Zn 1 ml/ Amino Ac/ Electrol/Dextrose/Calcium 1,011 mls @ 76 mls/hr IV .BY DURATION [facility] Stop: 08/14/17 14:30 Last Admin: 08/13/17 13:11 Dose: 76 mls/hr Amino Ac/Electrol/Dextrose/Calcium (Clinimix E 5/15) 1,000 mls @ 76 mls/hr IV .BY DURATION [facility] Stop: 08/14/17 14:30 Last Admin: 08/14/17 02:18 Dose: 76 mls/hr Fat Emulsion Intravenous (Intralipid 20%) 100 mls @ 8.5 mls/hr IV ONETIME ONE Stop: 08/14/17 03:45 Last Admin: 08/13/17 15:54 Dose: 8.5 mls/hr Multivitamins/Minerals 10 ml/Chromium/Copper/Manganese/Seleni/Zn 1 ml/ Amino Ac/ Electrol/Dextrose/Calcium 1,011 mls @ 76 mls/hr IV .BY DURATION [facility] Stop: 08/16/17 15:55 Last Admin: 08/15/17 16:56 Dose: 76 mls/hr Amino Ac/Electrol/Dextrose/Calcium (Clinimix E 5/15) 1,000 mls @ 76 mls/hr IV .BY DURATION [facility] Stop: 08/16/17 15:55 Last Admin: 08/16/17 09:26 Dose: Not Given Fat Emulsion Intravenous (Intralipid 20%) 100 mls @ 8.3 mls/hr IV ONETIME ONE Stop: 08/15/17 04:02 Last Admin: 08/14/17 15:32 Dose: 8.3 mls/hr Sodium Chloride (Normal Saline) 1,000 mls @ 999 mls/hr IV .BOLUS ONE Stop: 08/15/17 08:51 Last Admin: 08/15/17 07:55 Dose: 999 mls/hr Fat Emulsion Intravenous (Intralipid 20%) 100 mls @ 8.5 mls/hr IV ONETIME ONE Stop: 08/16/17 05:45 Last Admin: 08/15/17 17:45 Dose: 8.5 mls/hr Sodium Chloride (Normal Saline) 1,000 mls @ 250 mls/hr IV ASDIRECTED [facility] Stop: 08/16/17 00:46 Last Admin: 08/16/17 00:09 Dose: 250 mls/hr Sodium Chloride (Normal Saline) 1,000 mls @ 125 mls/hr IV ASDIRECTED [facility] Last Admin: 08/16/17 06:50 Dose: 125 mls/hr Potassium Chloride 40 meq/ (Premix) 100 mls @ 25 mls/hr IV ONETIME ONE Stop: 08/15/17 22:48 Last Admin: 08/15/17 19:29 Dose: 25 mls/hr Sodium Chloride (Normal Saline) 1,000 mls @ 50 mls/hr IV ASDIRECTED [facility] Last Admin: 08/17/17 00:14 Dose: 50 mls/hr Fat Emulsion Intravenous (Intralipid 20%) 100 mls @ 8.3 mls/hr IV ONETIME ONE Stop: 08/17/17 04:02 Last Admin: 08/16/17 15:42 Dose: 8.3 mls/hr Vancomycin HCl 1.5 gm/ Sodium (Chloride) 250 mls @ 167 mls/hr IV ONETIME ONE Stop: 08/16/17 17:29 Last Admin: 08/16/17 15:11 Dose: 167 mls/hr Potassium Chloride 40 meq/ (Premix) 100 mls @ 25 mls/hr IV ONETIME ONE Stop: 08/17/17 12:29 Last Admin: 08/17/17 08:16 Dose: 25 mls/hr Ketamine HCl (Ketalar) Confirm Administered Dose 500 mg .ROUTE .STK-MED ONE Stop: 08/11/17 00:16 Ketamine HCl (Ketalar) Confirm Administered Dose 500 mg .ROUTE .STK-MED ONE Stop: 08/15/17 07:29 Lidocaine HCl (Xylocaine 2%) Confirm Administered Dose 100 mg .ROUTE .STK-MED ONE Stop: 08/12/17 15:54 Lidocaine/Epinephrine (Xylocaine 1% With Epinephrine 1:100,000) Confirm Administered Dose 50 ml .ROUTE .STK-MED ONE Stop: 08/12/17 11:51 Meropenem (Merrem) Confirm Administered Dose 500 mg .ROUTE .STK-MED ONE Stop: 08/10/17 14:06 Last Admin: 08/10/17 14:14 Dose: 500 mg Midazolam HCl (Versed 1 Mg/Ml) Confirm Administered Dose 2 mg .ROUTE .STK-MED ONE Stop: 08/15/17 07:29 Neostigmine Methylsulfate (Neostigmine) Confirm Administered Dose 5 mg .ROUTE .STK-MED ONE Stop: 08/10/17 10:37 Neostigmine Methylsulfate (Neostigmine) Confirm Administered Dose 5 mg .ROUTE .STK-MED ONE Stop: 08/11/17 00:15 Neostigmine Methylsulfate (Neostigmine) Confirm Administered Dose 5 mg .ROUTE .STK-MED ONE Stop: 08/12/17 15:54 Neostigmine Methylsulfate (Neostigmine) Confirm Administered Dose 5 mg .ROUTE .ST-MED ONE Stop: 08/15/17 07:28 Check Scopolamine (Patch) 0 each .XX DAILY [facility] Stop: 08/13/17 09:01 Last Admin: 08/13/17 10:08 Dose: Not Given Ondansetron HCl (Zofran) Confirm Administered Dose 4 mg .ROUTE .ST-MED ONE Stop: 08/10/17 10:37 Ondansetron HCl (Zofran) Confirm Administered Dose 8 mg .ROUTE .STK-MED ONE Stop: 08/10/17 16:21 Ondansetron HCl (Zofran) Confirm Administered Dose 4 mg .ROUTE .STK-MED ONE Stop: 08/11/17 00:15 Ondansetron HCl (Zofran) Confirm Administered Dose 4 mg .ROUTE .STK-MED ONE Stop: 08/12/17 15:54 Ondansetron HCl (Zofran) Confirm Administered Dose 4 mg .ROUTE .STK-MED ONE Stop: 08/15/17 07:28 Propofol (Diprivan 20 Ml) Confirm Administered Dose 200 mg .ROUTE .STK-MED ONE Stop: 08/10/17 10:37 Propofol (Diprivan 20 Ml) Confirm Administered Dose 200 mg .ROUTE .STK-MED ONE Stop: 08/12/17 15:54 Propofol (Diprivan 20 Ml) Confirm Administered Dose 200 mg .ROUTE .STK-MED ONE Stop: 08/15/17 07:28 Rocuronium Acworth (Zemuron) Confirm Administered Dose 50 mg .ROUTE .STK-MED ONE Stop: 08/10/17 10:37 Rocuronium Acworth (Zemuron) Confirm Administered Dose 50 mg .ROUTE .STK-MED ONE Stop: 08/10/17 13:50 Rocuronium Acworth (Zemuron) Confirm Administered Dose 50 mg .ROUTE .STK-MED ONE Stop: 08/11/17 00:15 Rocuronium Acworth (Zemuron) Confirm Administered Dose 50 mg .ROUTE .STK-MED ONE Stop: 08/12/17 15:54 Rocuronium Acworth (Zemuron) Confirm Administered Dose 50 mg .ROUTE .STK-MED ONE Stop: 08/15/17 07:28 Scopolamine (Transderm-Scop) 1.5 mg TOP ONETIME ONE Stop: 08/10/17 16:20 Last Admin: 08/10/17 17:23 Dose: 1.5 mg Succinylcholine Chloride (Quelicin) Confirm Administered Dose 200 mg .ROUTE .STK -MED ONE Stop: 08/10/17 10:37 Succinylcholine Chloride (Quelicin) Confirm Administered Dose 200 mg .ROUTE .STK -MED ONE Stop: 08/11/17 00:15 Succinylcholine Chloride (Quelicin) Confirm Administered Dose 200 mg .ROUTE .STK -MED ONE Stop: 08/12/17 15:54 Succinylcholine Chloride (Quelicin) Confirm Administered Dose 200 mg .ROUTE .STK -MED ONE Stop: 08/15/17 07:28 Vancomycin HCl (Vancomycin) 1 gm IV .PHARMACY TO DOSE [facility] Stop: 08/12/17 09:00 - Exam Quality Assessment: DVT Prophylaxis General: Alert, Oriented, Lethargic Lungs: Clear to Auscultation, Normal Respiratory Effort Cardiovascular: Regular Rate, Regular Rhythm, No Murmurs GI/Abdominal Exam: Other (Open abdominal wound) Extremities: Non-Tender, No Pedal Edema Skin: Warm, Dry Consult PN Assessment/Plan Procedures: Procedures AIRWAY INHALATION TREATMENT (10/28/14) ASSAY OF ACETAMINOPHEN (05/22/14) ASSAY OF CK (CPK) (10/18/15) ASSAY OF ETHANOL (05/22/14) ASSAY OF LACTIC ACID (07/23/16) ASSAY OF LIPASE (07/23/16) ASSAY OF MAGNESIUM (07/25/17) ASSAY OF NATRIURETIC PEPTIDE (10/18/15) ASSAY OF PHOSPHORUS (07/25/17) ASSAY OF SALICYLATE (05/22/14) ASSAY OF TROPONIN QUANT (07/25/17) BLEEDING TIME TEST (07/25/17) BLOOD CULTURE FOR BACTERIA (10/28/14) BLOOD GASES ANY COMBINATION (07/23/16) BLOOD TYPING SEROLOGIC ABO (07/25/17) BLOOD TYPING SEROLOGIC RH(D) (07/25/17) C DIFF AMPLIFIED PROBE (07/25/17) C-REACTIVE PROTEIN (07/03/16) CHEST X-RAY 1 VIEW FRONTAL (01/31/17) CHEST X-RAY 2VW FRONTAL&LATL (07/25/17) COMP SCREEN MAMMOGRAM ADD-ON (03/01/15) COMPATIBILITY TEST ANTIGLOB (07/25/17) COMPATIBILITY TEST SPIN (07/25/17) COMPLETE CBC AUTOMATED (07/25/17) COMPLETE CBC W/AUTO DIFF WBC (08/07/17) COMPREHEN METABOLIC PANEL (07/25/17) CREATINE MB FRACTION (05/20/17) CT ABD & PELV W/CONTRAST (07/25/17) CT ABD & PELVIS W/O CONTRAST (03/17/17) CT ANGIOGRAPHY CHEST (07/23/16) CT HEAD/BRAIN W/O DYE (01/03/15) CT THORAX W/O DYE (04/19/15) CULTURE SCREEN ONLY (12/12/14) EGD BIOPSY SINGLE/MULTIPLE (12/12/14) ELECTROCARDIOGRAM TRACING (05/20/17) EMERGENCY DEPT VISIT (08/07/17) EMERGENCY DEPT VISIT (01/31/17) EMERGENCY DEPT VISIT (03/28/16) EMERGENCY DEPT VISIT (02/09/16) EMERGENCY DEPT VISIT (11/13/15) EMERGENCY DEPT VISIT (10/18/15) EMERGENCY DEPT VISIT (08/16/15) EMERGENCY DEPT VISIT (06/26/15) EMERGENCY DEPT VISIT (10/28/14) EMERGENCY DEPT VISIT (07/31/14) EMERGENCY DEPT VISIT (06/23/14) EMERGENCY DEPT VISIT (05/22/14) EVALUATION OF WHEEZING (11/28/14) EXTRACRANIAL BILAT STUDY (06/17/17) EXTREMITY STUDY (06/26/15) FIBRIN DEGRADATION QUANT (06/26/15) HYDRATE IV INFUSION ADD-ON (06/23/14) HYDRATION IV INFUSION INIT (05/22/14) INJECT SPINE LUMBAR/SACRAL (06/05/16) INJECT TRIGGER POINTS 3/> (06/05/16) MANUAL THERAPY 1/> REGIONS (02/05/16) MEASURE BLOOD OXYGEN LEVEL (07/25/17) METABOLIC PANEL TOTAL CA (08/07/17) MRI BRAIN STEM W/O & W/DYE (01/11/15) MRI JOINT UPR EXTREM W/O DYE (05/29/15) MRI LUMBAR SPINE W/O DYE (06/02/14) MRI NECK SPINE W/O DYE (03/01/15) NEUROMUSCULAR REEDUCATION (02/05/16) OBSERV/HOSP SAME DATE (05/22/14) OT EVALUATION (03/24/15) OVA AND PARASITES SMEARS (07/25/17) PROTHROMBIN TIME (02/09/16) PT EVALUATION (02/05/16) RBC ANTIBODY SCREEN (07/25/17) ROUTINE VENIPUNCTURE (08/07/17) SKIN SPLT GRFT T/A/L ADD-ON (11/28/16) SKIN SPLT GRFT TRNK/ARM/LEG (11/28/16) SMEAR COMPLEX STAIN (07/25/17) THER/PROPH/DIAG INJ IV PUSH (07/03/16) THER/PROPH/DIAG INJ SC/IM (11/13/15) THROMBOPLASTIN TIME PARTIAL (02/18/15) TISSUE EXAM BY PATHOLOGIST (07/25/17) TISSUE EXAM BY PATHOLOGIST (07/25/17) TTE W/DOPPLER COMPLETE (07/03/17) TX/PRO/DX INJ NEW DRUG ADDON (07/03/16) ULTRASOUND THERAPY (02/05/16) URINALYSIS AUTO W/SCOPE (07/25/17) WITHDRAWAL OF ARTERIAL BLOOD (07/23/16) WOUND PREP ADDL 100 CM (11/28/16) WOUND PREP TRK/ARM/LEG (11/28/16) X-RAY EXAM HIP UNI 2-3 VIEWS (11/13/15) X-RAY EXAM L-2 SPINE 4/>VWS (07/31/14) X-RAY EXAM OF ABDOMEN (07/25/17) X-RAY EXAM OF HIP (07/31/14) X-RAY EXAM OF SHOULDER (02/09/16) X-RAY EXAM OF WRIST (02/09/16) Problem List Initiated/Reviewed/Updated: Yes My Orders Last 24 Hours: My Active Orders 08/16/17 09:00 Enoxaparin [Lovenox] 90 mg SUBCUT Q12H 08/16/17 21:40 CULTURE BLOOD [BC] Urgent Blood Culture x2 Reflex Set [OM.PC] Urgent 08/16/17 21:46 Blood Culture x2 Reflex Set [OM.PC] Urgent 08/16/17 21:55 CULTURE BLOOD [BC] Urgent 08/17/17 08:00 Sodium Chloride 0.9% [Normal Saline] 1,000 ml IV ASDIRECTED 08/17/17 16:00 NS + KCl 20mEq/L [Normal Saline with 20 mEq KCl] 1,000 ml IV ASDIRECTED Plan: ASSESSMENT AND RECOMMENDATIONS STATUS 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 Keyes -Continue TPN per Dr. Weiner ACUTE KIDNEY INJURY-likely secondary to prerenal causes with intravascular volume depletion related to spontaneous diuresis. Renal function slightly worse over the last 24 hours with decreasing IV fluids -Normal saline 250 mg per hour 8 hours -Normal saline with 20 mEq of potassium chloride 125 mL per hour to start after normal saline infusion -Continue to closely monitor urine output and renal function HISTORY OF DEEP VEIN THROMBOSIS AND PULMONARY EMBOLISM -Lovenox 90 mg subcutaneous every 12 hours -Plan to restart Xarelto when she is able to take oral medications TYPE 2 DIABETES MELLITUS-blood sugars have been elevated while on TPN -Continue insulin in TPN HYPERTENSION-blood pressures have been intermittently elevated -Metoprolol 2.5 mg IV every 4 hours
[2017-08-17] MEDS: Metoprolol Tartrate 5 MG/5 ML SDV IVPUSH SCH ×4 (09:59→21:53)
--- NOTE | 2017-08-17 15:32 | PN ---
DATE OF SERVICE: 08/16/2017 The patient has been afebrile with stable vital signs. The fistula output has decreased quite a bit, still having a fair bit coming into the wound VAC, but overall things appeared to be somewhat better. Otherwise she has been clinically stable. I will continue the TPN and management along with Dr. Keyes and Dr. Morse. Tc Weiner MD /[phone]
[2017-08-17] MEDS ORDERED: Fat Emulsion 100 ML IV ONE (16:00)
[2017-08-17] MEDS: Pantoprazole 40 MG Vial IVPUSH SCH (16:25)
--- NOTE | 2017-08-17 16:54 | PN ---
DATE OF SERVICE: 08/17/2017 The patient has been afebrile with stable vital signs. She still has quite a bit of drainage. This is not altogether collected around the occlusive dressing, and this will be addressed per Dr. Keyes when he returns tomorrow. She does not appear to be septic from this per se. Otherwise, clinically, no major problems have been noted. It is notable that her electrolytes are showing a low CO2 and relatively high chloride, likely related to the content being drained from the GI tract. So, we will switch the extra potassium in the TPN to K acetate rather than KCL and then give her some additional K acetate IV piggyback today. Her albumin is quite low as well, and we will start 50 grams IV daily x4, and recheck some labs in the morning. Otherwise, continue management with the assistance of Dr. Morse. Tc Weiner MD /[id number]
[2017-08-17] MEDS: LORazepam 2 MG/ML MDV IVPUSH PRN ×2 (17:30→23:23)
[2017-08-17] MEDS: 1: AA 5%/Calcium/D20W/Lytes 1,000 ML with MVI, Adult with Vitamin K 10 ML, Chromium/Copp IV SCH ×3 (18:21)
[2017-08-17] MEDS: NS + KCl 20mEq/L 1,000 ML IV SCH (19:45)
[2017-08-17] MEDS ORDERED: Acetaminophen 650 MG Supp RECTAL PRN (20:07)
[2017-08-17] MEDS ORDERED: Levofloxacin/Dextrose 5%-Water 750 MG in Premix Bag 1 BAG IV SCH ×2 (20:15→20:30)
[2017-08-17] MEDS: Levofloxacin/Dextrose 5%-Water 750 MG in Premix Bag 1 BAG IV SCH (21:00)
[2017-08-17] MEDS: Linezolid 600 MG in Premix Bag 1 BAG IV SCH (22:40)
[2017-08-18] MEDS: Metoprolol Tartrate 5 MG/5 ML SDV IVPUSH SCH ×6 (01:41→23:08)
[2017-08-18] MEDS: NS + KCl 20mEq/L 1,000 ML IV SCH ×2 (06:14→16:29)
[2017-08-18] MEDS: 1: AA 5%/Calcium/D20W/Lytes 1,000 ML with MVI, Adult with Vitamin K 10 ML, Chromium/Copp IV SCH ×6 (07:29→20:46)
[2017-08-18] MEDS: Dimethicone 20%/Zinc Oxide 25% 56 GM Spray Bottle TOP PRN ×2 (07:45→14:30)
[2017-08-18] MEDS: Enoxaparin 100 MG/1 ML Syringe SUBCUT SCH ×2 (08:15→20:26)
[2017-08-18] MEDS: Linezolid 600 MG in Premix Bag 1 BAG IV SCH ×2 (08:24→20:19)
--- NOTE | 2017-08-18 08:54 | PCM.CONSN ---
- General Info Date of Service: 08/18/17 Functional Status: Reports: Pain Controlled - Review of Systems General: Reports: Fever, Weakness Gastrointestinal: Reports: Abdominal Pain Neurological: Reports: Headache Systems Review Comment:: Patient did have a fever again last night. Workup included repeat blood cultures , urinalysis, chest x-ray and CT of the abdomen this morning. No strong evidence to suggest active infection though a fair amount of inflammation was noted in the abdomen. Abdominal pain has been well-controlled. Kidney function has been stable. Central line does not seem to be functioning properly the plan is to remove this and probably replace with a new one later today. - Patient Data Vitals - Most Recent: Last Vital Signs Temp 37.2 C 08/18/17 08:00 Pulse 102 H 08/18/17 08:00 Resp 20 08/18/17 08:00 BP 154/47 H 08/18/17 08:00 Pulse Ox 100 08/18/17 08:00 Weight - Most Recent: 84.6 kg I&O - Last 24 Hours: Intake & Output 08/17/17 08/18/17 08/18/17 22:59 06:59 14:59 Intake Total 500 5063 Output Total 2675 1550 Balance -2175 3513 Lab Results Last 24 Hours: Laboratory Results - last 24 hr 08/17/17 08/18/17 08/18/17 Range/Units 22:01 04:27 04:27 WBC 14.0 H (4.5-11.0) K/uL RBC 3.63 (3.30-5.50) M/uL Hgb 10.8 L (12.0-15.0) g/dL Hct 32.3 L (36.0-48.0) % MCV 89 (80-98) fL MCH 30 (27-31) pg MCHC 33 (32-36) % Plt Count 693 H (150-400) K/uL Sodium 142 (140-148) mmol/L Potassium 3.9 (3.6-5.2) mmol/L Chloride 110 H (100-108) mmol/L Carbon Dioxide 21 (21-32) mmol/L Anion Gap 14.9 H (5.0-14.0) mmol/L BUN 29 H (7-18) mg/dL Creatinine 1.7 H (0.6-1.0) mg/dL Est Cr Clr Drug Dosing 31.61 mL/min Estimated GFR (MDRD) 31 L (>60) Glucose 131 H (74-106) mg/dL Calcium 8.2 L (8.5-10.1) mg/dL Phosphorus 4.1 (2.5-4.9) mg/dL Magnesium 2.0 (1.8-2.4) mg/dL Total Bilirubin 0.3 (0.2-1.0) mg/dL AST 11 L (15-37) U/L ALT 11 L (12-78) U/L Alkaline Phosphatase 125 H (46-116) U/L Total Protein 6.5 (6.4-8.2) g/dL Albumin 2.1 L (3.4-5.0) g/dL Globulin 4.4 H (2.3-3.5) g/dL Albumin/Globulin Ratio 0.5 L (1.2-2.2) Urine Color Yellow Urine Appearance Cloudy Urine pH 5.0 (4.5-8.0) Ur Specific [place] 1.010 (1.008-1.030) Urine Protein Negative (NEGATIVE) mg/dL Urine Glucose (UA) Normal (NEGATIVE) mg/dL Urine Ketones Negative (NEGATIVE) mg/dL Urine Occult Blood Moderate (NEGATIVE) Urine Nitrite Negative (NEGATIVE) Urine Bilirubin Negative (NEGATIVE) Urine Urobilinogen Normal (NORMAL) mg/dL Ur Leukocyte Esterase Small (NEGATIVE) Urine RBC 5-10 H (0-5) Urine WBC 10-20 H (0-5) Ur Epithelial Cells Few Amorphous Sediment Few Urine Bacteria Few Urine Mucus Few Philippe Results Last 24 Hours: Microbiology 08/16/17 22:16 Aerobic Blood Culture - Preliminary Blood - Arm, Left NO GROWTH AFTER 1 DAY Anaerobic Blood Culture - Preliminary NO GROWTH AFTER 1 DAY 08/16/17 21:55 Aerobic Blood Culture - Preliminary Blood - Arm, Left NO GROWTH AFTER 1 DAY Anaerobic Blood Culture - Preliminary NO GROWTH AFTER 1 DAY Med Orders - Current: Current Medications Acetaminophen (Tylenol) 650 mg RECTAL Q4H PRN PRN Reason: Fever Last Admin: 08/17/17 20:58 Dose: 650 mg Benzocaine/Menthol (Cepacol Sore Throat) 1 lozenge MUCMEM Q1H PRN PRN Reason: Sore Throat Dimethicone/Zinc Oxide (Rash Relief-Zinc Oxide Bath) 0 gm TOP ASDIRECTED PRN PRN Reason: Rash Last Admin: 08/13/17 15:53 Dose: 2 sprays Diphenhydramine HCl (Benadryl) 50 mg IVPUSH Q4H PRN PRN Reason: Itching Last Admin: 08/16/17 21:14 Dose: 50 mg Enoxaparin Sodium (Lovenox) 90 mg SUBCUT Q12H DELANEY Last Admin: 08/18/17 08:15 Dose: 90 mg Fentanyl Citrate (Fentanyl In Ns 20 Mcg/Ml 30 Ml Used Car [employer]) 0 mcg IV ASDIRECTED PRN; Protocol PRN Reason: PAIN Last Admin: 08/13/17 16:20 Dose: 600 mcg Fluticasone Propionate (Flonase) 0 gm NASBOTH DAILY PRN PRN Reason: Congestion Heparin Sodium (Porcine) (Heparin Lock Flush 100 Units/Ml) 500 units FLUSH 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 Last Admin: 08/17/17 04:45 Dose: 500 units Hydroxyzine HCl (Vistaril) 50 - 100 mg IM Q4H PRN PRN Reason: Nausea Last Admin: 08/13/17 17:30 Dose: 100 mg Potassium Chloride/Sodium Chloride (Normal Saline With 20 Meq Kcl) 1,000 mls @ 125 mls/hr IV ASDIRECTED [facility] Last Admin: 08/18/17 06:14 Dose: 125 mls/hr Multivitamins/Minerals 10 ml/Chromium/Copper/Manganese/Seleni/Zn 1 ml/ Amino Ac/ Electrol/Dextrose/Calcium 1,011 mls @ 76 mls/hr IV .BY DURATION [facility] Last Admin: 08/17/17 18:21 Dose: 76 mls/hr Amino Ac/Electrol/Dextrose/Calcium (Clinimix E 5/20) 1,000 mls @ 76 mls/hr IV .BY DURATION [facility] Last Admin: 08/18/17 07:29 Dose: 76 mls/hr Albumin Human (Albumin 25%) 25 gm in 100 mls @ 25 mls/hr IV DAILY [facility] Stop: 08/20/17 12:59 Last Admin: 08/18/17 08:13 Dose: 25 mls/hr Albumin Human (Albumin 25%) 25 gm in 100 mls @ 25 mls/hr IV Q24H [facility] Stop: 08/20/17 16:59 Last Admin: 08/17/17 13:06 Dose: 25 mls/hr Linezolid 600 mg/ Premix 300 mls @ 300 mls/hr IV Q12H [facility] Last Admin: 08/18/17 08:24 Dose: 300 mls/hr Meropenem 1 gm/ Sodium (Chloride) 50 mls @ 100 mls/hr IV Q12H [facility] Last Admin: 08/17/17 21:53 Dose: 100 mls/hr Levofloxacin/Dextrose 750 mg/ (Premix) 150 mls @ 100 mls/hr IV Q24H [facility] Last Admin: 08/17/17 21:00 Dose: 100 mls/hr Lorazepam (Ativan) 0.5 - 1.5 mg IVPUSH Q6H PRN PRN Reason: Anxiety Last Admin: 08/17/17 23:23 Dose: 1.5 mg Metoprolol Tartrate (Lopressor) 2.5 mg IVPUSH Q4H [facility] Last Admin: 08/18/17 05:37 Dose: 2.5 mg Naloxone HCl (Narcan) 0.1 mg IV ASDIRECTED PRN PRN Reason: RESP. DEPRESSION Non-Formulary Medication (Total Parenteral Nutrition, Central) 1,000 ml .XX .Continue Order [facility] PRN Reason: Protocol Ondansetron HCl (Zofran) 4 mg IVPUSH Q4H PRN PRN Reason: Nausea/Vomiting Last Admin: 08/13/17 13:44 Dose: 4 mg Pantoprazole Sodium (Protonix Iv) 40 mg IVPUSH Q24H [facility] Last Admin: 08/17/17 16:25 Dose: 40 mg Discontinued Medications Bacitracin (Bacitracin Oint 1 Gm) 1 dose TOP ONETIME ONE Stop: 08/14/17 10:46 Last Admin: 08/14/17 11:00 Dose: 1 dose Dexamethasone (Dexamethasone) Confirm Administered Dose 4 mg .ROUTE .STK-MED ONE Stop: 08/10/17 10:37 Dexamethasone (Dexamethasone) Confirm Administered Dose 4 mg .ROUTE .STK-MED ONE Stop: 08/11/17 00:15 Dexamethasone (Dexamethasone) Confirm Administered Dose 4 mg .ROUTE .STK-MED ONE Stop: 08/12/17 15:54 Dexamethasone (Dexamethasone) Confirm Administered Dose 4 mg .ROUTE .STK-MED ONE Stop: 08/15/17 07:28 Enoxaparin Sodium (Lovenox) 40 mg SUBCUT DAILY [facility] Last Admin: 08/15/17 14:10 Dose: 40 mg Enoxaparin Sodium (Lovenox) 90 mg SUBCUT DAILY [facility] Fentanyl (Sublimaze) Confirm Administered Dose 250 mcg .ROUTE .ST-MED ONE Stop: 08/10/17 10:37 Fentanyl (Sublimaze) Confirm Administered Dose 250 mcg .ROUTE .ST-MED ONE Stop: 08/10/17 13:06 Fentanyl (Sublimaze) Confirm Administered Dose 250 mcg .ROUTE .ST-MED ONE Stop: 08/11/17 00:15 Fentanyl (Sublimaze) Confirm Administered Dose 250 mcg .ROUTE .ST-MED ONE Stop: 08/12/17 15:53 Fentanyl (Sublimaze) Confirm Administered Dose 250 mcg .ROUTE .ST-MED ONE Stop: 08/15/17 07:29 Fentanyl Citrate (Fentanyl In Ns 20 Mcg/Ml 30 Ml Used Car [employer]) Confirm Administered Dose 600 mcg .ROUTE .[facility]-MED ONE Stop: 08/10/17 15:41 Last Admin: 08/10/17 16:35 Dose: 10 mcg Glycopyrrolate (Robinul) Confirm Administered Dose 1 mg .ROUTE .ST-MED ONE Stop: 08/10/17 10:37 Glycopyrrolate (Robinul) Confirm Administered Dose 1 mg .ROUTE .ST-MED ONE Stop: 08/11/17 00:15 Glycopyrrolate (Robinul) Confirm Administered Dose 1 mg .ROUTE .ST-MED ONE Stop: 08/12/17 15:54 Glycopyrrolate (Robinul) Confirm Administered Dose 1 mg .ROUTE .ST-MED ONE Stop: 08/15/17 07:28 Heparin Sodium (Porcine) (Heparin Lock Flush 100 Units/Ml) Confirm Administered Dose 1,000 units .ROUTE .[facility]-MED ONE Stop: 08/10/17 10:55 Last Admin: 08/10/17 12:15 Dose: 1,000 units Heparin Sodium (Porcine) (Heparin Lock Flush 100 Units/Ml) Confirm Administered Dose 500 units .ROUTE .STK-MED ONE Stop: 08/12/17 15:46 Last Admin: 08/12/17 16:13 Dose: Not Given Sodium Chloride (Normal Saline) 1,000 mls @ 100 mls/hr IV ASDIRECTED [facility] Last Admin: 08/11/17 09:53 Dose: 100 mls/hr Piperacillin/Tazobactam/ (Dextrose 4.5 gm/ Premix) 100 mls @ 200 mls/hr IV ONETIME ONE Stop: 08/10/17 11:29 Last Admin: 08/10/17 11:09 Dose: 200 mls/hr Lactated Ringer's (Ringers, Lactated) Confirm Administered Dose 1,000 mls @ as directed .ROUTE .STK-MED ONE Stop: 08/10/17 15:24 Lactated Ringer's (Ringers, Lactated) Confirm Administered Dose 1,000 mls @ as directed .ROUTE .STK-MED ONE Stop: 08/10/17 15:24 Piperacillin Sod/Tazobactam (Sod 4.5 gm/ Sodium Chloride) 100 mls @ 200 mls/hr IV Q8H [facility] Last Admin: 08/11/17 04:06 Dose: 200 mls/hr Sodium Chloride (Normal Saline) 1,000 mls @ 500 mls/hr IV ASDIRECTED [facility] Last Infusion: 08/10/17 20:36 Dose: 0 mls/hr Piperacillin/Tazobactam/ (Dextrose 4.5 gm/ Premix) 100 mls @ 200 mls/hr IV Q8H [facility] Last Admin: 08/15/17 03:39 Dose: 200 mls/hr Sodium Chloride (Normal Saline) 1,000 mls @ 125 mls/hr IV ASDIRECTED [facility] Last Admin: 08/12/17 20:25 Dose: 125 mls/hr Vancomycin HCl 1 gm/ Sodium (Chloride) 250 mls @ 150 mls/hr IV ONETIME ONE Stop: 08/11/17 21:37 Last Admin: 08/11/17 20:27 Dose: Not Given Vancomycin HCl 1.5 gm/ Sodium (Chloride) 250 mls @ 166.667 mls/hr IV Q12H [facility] Last Admin: 08/13/17 10:19 Dose: Not Given Potassium Chloride 20 meq/Lidocaine HCl 2 ml/ Sodium Chloride 112 mls @ 56 mls/ hr IV Q2H [facility] Stop: 08/12/17 14:59 Last Admin: 08/12/17 13:17 Dose: 56 mls/hr Potassium Chloride 20 meq/ (Premix) 100 mls @ 50 mls/hr IV ONETIME ONE Stop: 08/12/17 17:59 Last Admin: 08/12/17 15:38 Dose: 50 mls/hr Vancomycin HCl 1.6 gm/ Sodium (Chloride) 250 mls @ 250 mls/hr IV Q12H [facility] Last Admin: 08/14/17 21:59 Dose: 250 mls/hr Potassium Chloride/Dextrose/Sod Cl (D5 1/2 Ns W/ 20 Meq/L Kcl) 1,000 mls @ 25 mls/hr IV ASDIRECTED [facility] Last Admin: 08/15/17 09:57 Dose: 25 mls/hr Multivitamins/Minerals 10 ml/Chromium/Copper/Manganese/Seleni/Zn 1 ml/ Amino Ac/ Electrol/Dextrose/Calcium 1,011 mls @ 76 mls/hr IV .BY DURATION [facility] Stop: 08/14/17 14:30 Last Admin: 08/13/17 13:11 Dose: 76 mls/hr Amino Ac/Electrol/Dextrose/Calcium (Clinimix E 5/15) 1,000 mls @ 76 mls/hr IV .BY DURATION [facility] Stop: 08/14/17 14:30 Last Admin: 08/14/17 02:18 Dose: 76 mls/hr Fat Emulsion Intravenous (Intralipid 20%) 100 mls @ 8.5 mls/hr IV ONETIME ONE Stop: 08/14/17 03:45 Last Admin: 08/13/17 15:54 Dose: 8.5 mls/hr Multivitamins/Minerals 10 ml/Chromium/Copper/Manganese/Seleni/Zn 1 ml/ Amino Ac/ Electrol/Dextrose/Calcium 1,011 mls @ 76 mls/hr IV .BY DURATION [facility] Stop: 08/16/17 15:55 Last Admin: 08/15/17 16:56 Dose: 76 mls/hr Amino Ac/Electrol/Dextrose/Calcium (Clinimix E 5/15) 1,000 mls @ 76 mls/hr IV .BY DURATION [facility] Stop: 08/16/17 15:55 Last Admin: 08/16/17 09:26 Dose: Not Given Fat Emulsion Intravenous (Intralipid 20%) 100 mls @ 8.3 mls/hr IV ONETIME ONE Stop: 08/15/17 04:02 Last Admin: 08/14/17 15:32 Dose: 8.3 mls/hr Sodium Chloride (Normal Saline) 1,000 mls @ 999 mls/hr IV .BOLUS ONE Stop: 08/15/17 08:51 Last Admin: 08/15/17 07:55 Dose: 999 mls/hr Piperacillin/Tazobactam/ (Dextrose 2.25 gm/ Premix) 50 mls @ 100 mls/hr IV Q6H [facility] Last Admin: 08/17/17 18:21 Dose: 100 mls/hr Fat Emulsion Intravenous (Intralipid 20%) 100 mls @ 8.5 mls/hr IV ONETIME ONE Stop: 08/16/17 05:45 Last Admin: 08/15/17 17:45 Dose: 8.5 mls/hr Sodium Chloride (Normal Saline) 1,000 mls @ 250 mls/hr IV ASDIRECTED [facility] Stop: 08/16/17 00:46 Last Admin: 08/16/17 00:09 Dose: 250 mls/hr Sodium Chloride (Normal Saline) 1,000 mls @ 125 mls/hr IV ASDIRECTED [facility] Last Admin: 08/16/17 06:50 Dose: 125 mls/hr Potassium Chloride 40 meq/ (Premix) 100 mls @ 25 mls/hr IV ONETIME ONE Stop: 08/15/17 22:48 Last Admin: 08/15/17 19:29 Dose: 25 mls/hr Sodium Chloride (Normal Saline) 1,000 mls @ 50 mls/hr IV ASDIRECTED [facility] Last Admin: 08/17/17 00:14 Dose: 50 mls/hr Multivitamins/Minerals 10 ml/Chromium/Copper/Manganese/Seleni/Zn 1 ml/ Amino Ac/ Electrol/Dextrose/Calcium 1,011 mls @ 76 mls/hr IV .BY DURATION [facility] Stop: 08/17/17 17:00 Last Admin: 08/16/17 15:41 Dose: 76 mls/hr Amino Ac/Electrol/Dextrose/Calcium (Clinimix E /15) 1,000 mls @ 76 mls/hr IV .BY DURATION [facility] Stop: 08/17/17 17:00 Last Admin: 08/17/17 05:13 Dose: 76 mls/hr Fat Emulsion Intravenous (Intralipid 20%) 100 mls @ 8.3 mls/hr IV ONETIME ONE Stop: 08/17/17 04:02 Last Admin: 08/16/17 15:42 Dose: 8.3 mls/hr Vancomycin HCl 1.5 gm/ Sodium (Chloride) 250 mls @ 167 mls/hr IV ONETIME ONE Stop: 08/16/17 17:29 Last Admin: 08/16/17 15:11 Dose: 167 mls/hr Potassium Chloride 40 meq/ (Premix) 100 mls @ 25 mls/hr IV ONETIME ONE Stop: 08/17/17 12:29 Last Admin: 08/17/17 08:16 Dose: 25 mls/hr Sodium Chloride (Normal Saline) 1,000 mls @ 250 mls/hr IV ASDIRECTED [facility] Stop: 08/17/17 16:01 Last Admin: 08/17/17 13:55 Dose: 250 mls/hr Fat Emulsion Intravenous (Intralipid 20%) 100 mls @ 8.3 mls/hr IV ONETIME ONE Stop: 08/18/17 04:02 Last Admin: 08/17/17 16:24 Dose: 8.3 mls/hr Potassium Acetate 40 meq/ (Sodium Chloride) 120 mls @ 30 mls/hr IV ONETIME ONE Stop: 08/17/17 13:59 Last Admin: 08/17/17 09:45 Dose: 30 mls/hr Potassium Acetate 20 meq/ (Sodium Chloride) 110 mls @ 55 mls/hr IV ONETIME ONE Stop: 08/17/17 16:59 Last Admin: 08/17/17 14:37 Dose: 55 mls/hr Levofloxacin/Dextrose 750 mg/ (Premix) 150 mls @ 100 mls/hr IV Q48H [facility] Last Admin: 08/17/17 21:25 Dose: Not Given Ketamine HCl (Ketalar) Confirm Administered Dose 500 mg .ROUTE .STK-MED ONE Stop: 08/11/17 00:16 Ketamine HCl (Ketalar) Confirm Administered Dose 500 mg .ROUTE .STK-MED ONE Stop: 08/15/17 07:29 Lidocaine HCl (Xylocaine 2%) Confirm Administered Dose 100 mg .ROUTE .STK-MED ONE Stop: 08/12/17 15:54 Lidocaine/Epinephrine (Xylocaine 1% With Epinephrine 1:100,000) Confirm Administered Dose 50 ml .ROUTE .STK-MED ONE Stop: 08/12/17 11:51 Meropenem (Merrem) Confirm Administered Dose 500 mg .ROUTE .STK-MED ONE Stop: 08/10/17 14:06 Last Admin: 08/10/17 14:14 Dose: 500 mg Midazolam HCl (Versed 1 Mg/Ml) Confirm Administered Dose 2 mg .ROUTE .STK-MED ONE Stop: 08/15/17 07:29 Neostigmine Methylsulfate (Neostigmine) Confirm Administered Dose 5 mg .ROUTE .STK-MED ONE Stop: 08/10/17 10:37 Neostigmine Methylsulfate (Neostigmine) Confirm Administered Dose 5 mg .ROUTE .STK-MED ONE Stop: 08/11/17 00:15 Neostigmine Methylsulfate (Neostigmine) Confirm Administered Dose 5 mg .ROUTE .STK-MED ONE Stop: 08/12/17 15:54 Neostigmine Methylsulfate (Neostigmine) Confirm Administered Dose 5 mg .ROUTE .ST-MED ONE Stop: 08/15/17 07:28 Check Scopolamine (Patch) 0 each .XX DAILY DELANEY Stop: 08/13/17 09:01 Last Admin: 08/13/17 10:08 Dose: Not Given Ondansetron HCl (Zofran) Confirm Administered Dose 4 mg .ROUTE .STK-MED ONE Stop: 08/10/17 10:37 Ondansetron HCl (Zofran) Confirm Administered Dose 8 mg .ROUTE .STK-MED ONE Stop: 08/10/17 16:21 Ondansetron HCl (Zofran) Confirm Administered Dose 4 mg .ROUTE .STK-MED ONE Stop: 08/11/17 00:15 Ondansetron HCl (Zofran) Confirm Administered Dose 4 mg .ROUTE .STK-MED ONE Stop: 08/12/17 15:54 Ondansetron HCl (Zofran) Confirm Administered Dose 4 mg .ROUTE .STK-MED ONE Stop: 08/15/17 07:28 Propofol (Diprivan 20 Ml) Confirm Administered Dose 200 mg .ROUTE .STK-MED ONE Stop: 08/10/17 10:37 Propofol (Diprivan 20 Ml) Confirm Administered Dose 200 mg .ROUTE .STK-MED ONE Stop: 08/12/17 15:54 Propofol (Diprivan 20 Ml) Confirm Administered Dose 200 mg .ROUTE .STK-MED ONE Stop: 08/15/17 07:28 Rocuronium [place] (Zemuron) Confirm Administered Dose 50 mg .ROUTE .STK-MED ONE Stop: 08/10/17 10:37 Rocuronium [place] (Zemuron) Confirm Administered Dose 50 mg .ROUTE .STK-MED ONE Stop: 08/10/17 13:50 Rocuronium [place] (Zemuron) Confirm Administered Dose 50 mg .ROUTE .STK-MED ONE Stop: 08/11/17 00:15 Rocuronium [place] (Zemuron) Confirm Administered Dose 50 mg .ROUTE .STK-MED ONE Stop: 08/12/17 15:54 Rocuronium [place] (Zemuron) Confirm Administered Dose 50 mg .ROUTE .STK-MED ONE Stop: 08/15/17 07:28 Scopolamine (Transderm-Scop) 1.5 mg TOP ONETIME ONE Stop: 08/10/17 16:20 Last Admin: 08/10/17 17:23 Dose: 1.5 mg Succinylcholine Chloride (Quelicin) Confirm Administered Dose 200 mg .ROUTE .STK -MED ONE Stop: 08/10/17 10:37 Succinylcholine Chloride (Quelicin) Confirm Administered Dose 200 mg .ROUTE .STK -MED ONE Stop: 08/11/17 00:15 Succinylcholine Chloride (Quelicin) Confirm Administered Dose 200 mg .ROUTE .STK -MED ONE Stop: 08/12/17 15:54 Succinylcholine Chloride (Quelicin) Confirm Administered Dose 200 mg .ROUTE .STK -MED ONE Stop: 08/15/17 07:28 Vancomycin HCl (Vancomycin) 1 gm IV .PHARMACY TO DOSE DELANEY Stop: 08/12/17 09:00 - Exam Quality Assessment: No: Supplemental Oxygen General: Alert, Oriented, Cooperative, No Acute Distress Neck: Supple Lungs: Clear to Auscultation, Normal Respiratory Effort Cardiovascular: Regular Rate, Regular Rhythm, No Murmurs GI/Abdominal Exam: Soft, No Distention, Other (wound vac over large area of central abdomen ) Extremities: No Pedal Edema. No: Increased Warmth Skin: Warm, Dry Psy/Mental Status: Alert, Normal Affect Consult PN Assessment/Plan Procedures: Procedures AIRWAY INHALATION TREATMENT (10/28/14) ASSAY OF ACETAMINOPHEN (05/22/14) ASSAY OF CK (CPK) (10/18/15) ASSAY OF ETHANOL (05/22/14) ASSAY OF LACTIC ACID (07/23/16) ASSAY OF LIPASE (07/23/16) ASSAY OF MAGNESIUM (07/25/17) ASSAY OF NATRIURETIC PEPTIDE (10/18/15) ASSAY OF PHOSPHORUS (07/25/17) ASSAY OF SALICYLATE (05/22/14) ASSAY OF TROPONIN QUANT (07/25/17) BLEEDING TIME TEST (07/25/17) BLOOD CULTURE FOR BACTERIA (10/28/14) BLOOD GASES ANY COMBINATION (07/23/16) BLOOD TYPING SEROLOGIC ABO (07/25/17) BLOOD TYPING SEROLOGIC RH(D) (07/25/17) C DIFF AMPLIFIED PROBE (07/25/17) C-REACTIVE PROTEIN (07/03/16) CHEST X-RAY 1 VIEW FRONTAL (01/31/17) CHEST X-RAY 2VW FRONTAL&LATL (07/25/17) COMP SCREEN MAMMOGRAM ADD-ON (03/01/15) COMPATIBILITY TEST ANTIGLOB (07/25/17) COMPATIBILITY TEST SPIN (07/25/17) COMPLETE CBC AUTOMATED (07/25/17) COMPLETE CBC W/AUTO DIFF WBC (08/07/17) COMPREHEN METABOLIC PANEL (07/25/17) CREATINE MB FRACTION (05/20/17) CT ABD & PELV W/CONTRAST (07/25/17) CT ABD & PELVIS W/O CONTRAST (03/17/17) CT ANGIOGRAPHY CHEST (07/23/16) CT HEAD/BRAIN W/O DYE (01/03/15) CT THORAX W/O DYE (04/19/15) CULTURE SCREEN ONLY (12/12/14) EGD BIOPSY SINGLE/MULTIPLE (12/12/14) ELECTROCARDIOGRAM TRACING (05/20/17) EMERGENCY DEPT VISIT (08/07/17) EMERGENCY DEPT VISIT (01/31/17) EMERGENCY DEPT VISIT (03/28/16) EMERGENCY DEPT VISIT (02/09/16) EMERGENCY DEPT VISIT (11/13/15) EMERGENCY DEPT VISIT (10/18/15) EMERGENCY DEPT VISIT (08/16/15) EMERGENCY DEPT VISIT (06/26/15) EMERGENCY DEPT VISIT (10/28/14) EMERGENCY DEPT VISIT (07/31/14) EMERGENCY DEPT VISIT (06/23/14) EMERGENCY DEPT VISIT (05/22/14) EVALUATION OF WHEEZING (11/28/14) EXTRACRANIAL BILAT STUDY (06/17/17) EXTREMITY STUDY (06/26/15) FIBRIN DEGRADATION QUANT (06/26/15) HYDRATE IV INFUSION ADD-ON (06/23/14) HYDRATION IV INFUSION INIT (05/22/14) INJECT SPINE LUMBAR/SACRAL (06/05/16) INJECT TRIGGER POINTS 3/> (06/05/16) MANUAL THERAPY 1/> REGIONS (02/05/16) MEASURE BLOOD OXYGEN LEVEL (07/25/17) METABOLIC PANEL TOTAL CA (08/07/17) MRI BRAIN STEM W/O & W/DYE (01/11/15) MRI JOINT UPR EXTREM W/O DYE (05/29/15) MRI LUMBAR SPINE W/O DYE (06/02/14) MRI NECK SPINE W/O DYE (03/01/15) NEUROMUSCULAR REEDUCATION (02/05/16) OBSERV/HOSP SAME DATE (05/22/14) OT EVALUATION (03/24/15) OVA AND PARASITES SMEARS (07/25/17) PROTHROMBIN TIME (02/09/16) PT EVALUATION (02/05/16) RBC ANTIBODY SCREEN (07/25/17) ROUTINE VENIPUNCTURE (08/07/17) SKIN SPLT GRFT T/A/L ADD-ON (11/28/16) SKIN SPLT GRFT TRNK/ARM/LEG (11/28/16) SMEAR COMPLEX STAIN (07/25/17) THER/PROPH/DIAG INJ IV PUSH (07/03/16) THER/PROPH/DIAG INJ SC/IM (11/13/15) THROMBOPLASTIN TIME PARTIAL (02/18/15) TISSUE EXAM BY PATHOLOGIST (07/25/17) TISSUE EXAM BY PATHOLOGIST (07/25/17) TTE W/DOPPLER COMPLETE (07/03/17) TX/PRO/DX INJ NEW DRUG ADDON (07/03/16) ULTRASOUND THERAPY (02/05/16) URINALYSIS AUTO W/SCOPE (07/25/17) WITHDRAWAL OF ARTERIAL BLOOD (07/23/16) WOUND PREP ADDL 100 CM (11/28/16) WOUND PREP TRK/ARM/LEG (11/28/16) X-RAY EXAM HIP UNI 2-3 VIEWS (11/13/15) X-RAY EXAM L-2 SPINE 4/>VWS (07/31/14) X-RAY EXAM OF ABDOMEN (07/25/17) X-RAY EXAM OF HIP (07/31/14) X-RAY EXAM OF SHOULDER (02/09/16) X-RAY EXAM OF WRIST (02/09/16) Problem List Initiated/Reviewed/Updated: Yes My Orders Last 24 Hours: My Active Orders 08/18/17 09:00 Central TPN [Total Parenteral Nutrition, Central] 1,000 ml .XX .Continue Order 08/19/17 05:00 BASIC METABOLIC PANEL,BMP [CHEM] Timed CBC W/O DIFF,HEMOGRAM [HEME] Timed (1) Plan: ASSESSMENT AND RECOMMENDATIONS FEVER - no strong evidence for acute infection at this time. Could be related to inflammation related to the fistula. Repeat cultures have all been obtained and are pending. Antibiotic selection has been broadened to include more resistant organisms until culture results have been finalized. 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 Keyes -Continue TPN per surgical team ACUTE KIDNEY INJURY -likely secondary to prerenal causes with intravascular volume depletion related to spontaneous diuresis. Still having fairly high urine output and kidney function has been stable. -Normal saline with 20 mEq of potassium chloride 125 mL per hour -Boluses as indicated based on intake and output balance -Continue to closely monitor urine output and renal function HISTORY OF DEEP VEIN THROMBOSIS AND PULMONARY EMBOLISM - currently on systemic anticoagulation with enoxaparin. -Enoxaparin 90 mg subcutaneous every 12 hours -Plan to restart Xarelto when she is able to take oral medications TYPE 2 DIABETES MELLITUS - blood sugars have been better controlled with the addition of insulin to the TPN. -Continue insulin in TPN HYPERTENSION - blood pressures have been mildly elevated intermittently but in general have been well controlled. -Metoprolol 2.5 mg IV every 4 hours -Transition to oral medications when able Kel Tabor MD
[2017-08-18] MEDS ORDERED: Central Total Parenteral Nutrition Bag SCH (09:00)
[2017-08-18] MEDS: LORazepam 2 MG/ML MDV IVPUSH PRN ×2 (09:23→20:18)
--- NOTE | 2017-08-18 10:23 | CR ---
Chest 1V Frontal INDICATION: fevers COMPARISON: The 2016 FINDINGS: AP portable chest. Mild cardiomegaly unchanged. Central venous catheter remains in place. No infiltrates or pleural effusions. No signs of pulmonary edema. Left shoulder arthroplasty. IMPRESSION: Nothing acute.
[2017-08-18] MEDS ORDERED: Lidocaine 1% with EPINEPHrine 1:100,000 50 ML MDV ONE (13:38)
[2017-08-18] MEDS ORDERED: Bupivacaine 0.5% 50 ML MDV ONE (13:38)
--- NOTE | 2017-08-18 13:56 | CT ---
Abdomen Pelvis wo Cont INDICATION: fevers TECHNIQUE: CT images of the abdomen and pelvis obtained without oral or IV contrast. DLP: 1039 mGycm COMPARISON: 08/06/2017 FINDINGS: Study is Limited without oral or IV contrast. Open midline anterior abdominal wound again noted. A drainage catheter is in the superficial portion of this wound anteriorly on the left. There is induration but no discrete fluid collections to sugges t abscess. Tiny air bubbles noted centrally within this induration on the left, axial images 83-86 bu t again no well-developed abscess. There is air in the nondependent portion of the urinary bladder wh ich may be due to presence of Louie catheter. No free intraperitoneal air. No ascites. No signs of arlette wel obstruction. IMPRESSION:Midline anterior abdominal wound, with drainage catheter on the left. Induration with a ti ny air bubbles but no discrete abscess formation seen.
[2017-08-18] MEDS: fentaNYL/Normal Saline 600 MCG/30 ML PCA Vial IV PRN (14:01)
[2017-08-18] MEDS ORDERED: fentaNYL 100 MCG/2 ML SDV ONE (14:53)
[2017-08-18] MEDS ORDERED: Propofol 200 MG/20 ML SDV ONE (14:53)
[2017-08-18] MEDS ORDERED: Midazolam 1 MG/ML 2 ML SDV ONE (14:53)
[2017-08-18] MEDS ORDERED: Lidocaine 1% 2 ML ONE (14:59)
[2017-08-18] MEDS ORDERED: Sodium Chloride 0.9% 500 ML ONE (15:30)
[2017-08-18] MEDS: Pantoprazole 40 MG Vial IVPUSH SCH (16:30)
[2017-08-18] MEDS: hydrOXYzine HCl 100 MG/2 ML SDV IM PRN (16:42)
[2017-08-18] MEDS: Levofloxacin/Dextrose 5%-Water 750 MG in Premix Bag 1 BAG IV SCH (21:34)
[2017-08-19] MEDS: Metoprolol Tartrate 5 MG/5 ML SDV IVPUSH SCH ×6 (02:55→22:27)
[2017-08-19] MEDS: LORazepam 2 MG/ML MDV IVPUSH PRN ×3 (02:56→20:00)
[2017-08-19] MEDS: NS + KCl 20mEq/L 1,000 ML IV SCH ×3 (02:57→19:58)
--- NOTE | 2017-08-19 08:03 | OR ---
DATE OF PROCEDURE: 08/18/2017 PROCEDURES: 1. Re-evaluation of laparotomy, abdomen. 2. Central line replacement. 3. Wound VAC placement. COMPLICATIONS: None. DIRECTOR SPEECH AND HEARING: None. ANESTHESIA: MAC. INDICATIONS: A pleasant 61-year-old female with an open abdomen due to multiple abdominal surgeries. FINDINGS: 1. Fistula, again noted. 2. Improvement in granulation tissue. 3. No evidence of abscess. 4. Skin breakdown noted around the wound, due to abdominal contents spillage. PREOPERATIVE DIAGNOSIS: Open abdominal wound. POSTOPERATIVE DIAGNOSIS: Open abdominal wound. RISKS: Risks, benefits, alternatives, and limitations were explained to the patient again. We discussed our objectives during this procedure are to: 1. Replace her central line. 2. Evaluate for new fistulas. 3. Attempt improved control of the known fistula. 4. Work on skin barrier or skin protection. PROCEDURE IN DETAIL: The patient was placed in supine position. The previous central line was prepped and draped. This would then be exchanged for a new central line. This was performed by drawing back on the 10 port first, the ground port first. This chantal back and flushed without difficulty. The wire was then introduced and this was exchanged over the wire. A new catheter was placed without difficulty and sewn into place. We prepped with chlorhexidine and Tegaderm was applied. After the central line was completely covered and flushed and all ports deflected away from the abdomen, the abdomen exploration was initiated. The wound VAC was removed. Again, the fistula was noted in the same location. There was a possible second fistula, but this seems to be small and it was sutured with a 2-0 silk. Tisseel was then placed over the fistula defect areas and [employer] instead of 10/10 drapes were placed over the abdominal contents. The standard black sponge was then placed over this and the wound vac itself was covered with tented plastic. A 22-[place] catheter had been placed within the fistula, and this was noted to have good output. Interrupted silk sutures, including pursestring, were placed around this. White petroleum was used around the entire skin surface to decrease the excoriation caused by the abdominal contents. The patient tolerated the procedure well. Jhonatan Keyes MD /[id number]
[2017-08-19] MEDS: Linezolid 600 MG in Premix Bag 1 BAG IV SCH ×2 (08:14→20:02)
[2017-08-19] MEDS: Enoxaparin 100 MG/1 ML Syringe SUBCUT SCH ×2 (08:26→21:21)
--- NOTE | 2017-08-19 08:36 | CR ---
Chest 1V Frontal INDICATION: CONFIRM TLSC POST OP COMPARISON: Exam from same day at 0420 hours FINDINGS: Single view of the chest. Central venous catheter retracted slightly now at junction of left brachiocephalic vein with SVC. Increasing cardiomegaly and new mild vascular congestion. No focal consolidation or pleural effusion.
--- NOTE | 2017-08-19 08:46 | CR ---
Abdomen 1V Flat INDICATION: no operative count done, confirm no retained items COMPARISON: CT same day FINDINGS: Single portable supine view of the abdomen shows surgical clips on the left and suture mat erial and vascular clips in the midline and on the right of the abdomen. Contrast filled segment of b owel in the pelvis on the right. No other radiopaque abnormalities seen. The entire abdomen is not in cluded on this single view, however. If clinical concern persists, recommend multiple supine views to include all aspects of the abdomen.
[2017-08-19] MEDS: 1: AA 5%/Calcium/D15W/Lytes 1,000 ML with MVI, Adult with Vitamin K 10 ML, Chromium/Copp IV SCH ×6 (10:22→23:32)
--- NOTE | 2017-08-19 10:37 | PCM.PN ---
- General Info Date of Service: 08/19/17 Functional Status: Reports: Pain Controlled - Review of Systems General: Reports: Weakness Gastrointestinal: Reports: Abdominal Pain Systems Review Comment:: No acute events overnight. She did spike a temp to >101 again last night. Vitals were otherwise stable and she did not have new symptoms at the time. She reports moderate abdominal pain today after her wound VAC was changed yesterday and the fistula area was reexplored in the operating room. She had a new central line placed over a wire yesterday and this seems to be functioning well so far. She continues to have a fairly high urine output. Renal function has remained stable. Repeat Cultures so far have been negative. - Patient Data Vitals - Most Recent: Last Vital Signs Temp 37.4 C 08/19/17 07:39 Pulse 94 08/19/17 10:00 Resp 20 08/19/17 10:00 BP 164/60 H 08/19/17 10:00 Pulse Ox 99 08/19/17 10:00 Weight - Most Recent: 80.603 kg I&O - Last 24 Hours: Intake & Output 08/18/17 08/19/17 08/19/17 22:59 06:59 14:59 Intake Total 2703 2652 Output Total 390 3000 750 Balance 2313 348 750 Lab Results Last 24 Hours: Laboratory Results - last 24 hr 08/19/17 08/19/17 Range/Units 05:00 05:00 WBC 13.3 H (4.5-11.0) K/uL RBC 3.49 (3.30-5.50) M/uL Hgb 10.2 L (12.0-15.0) g/dL Hct 31.2 L (36.0-48.0) % MCV 89 (80-98) fL MCH 29 (27-31) pg MCHC 33 (32-36) % Plt Count 734 H (150-400) K/uL Sodium 145 (140-148) mmol/L Potassium 3.9 (3.6-5.2) mmol/L Chloride 112 H (100-108) mmol/L Carbon Dioxide 21 (21-32) mmol/L Anion Gap 15.9 H (5.0-14.0) mmol/L BUN 29 H (7-18) mg/dL Creatinine 1.7 H (0.6-1.0) mg/dL Est Cr Clr Drug Dosing 31.61 mL/min Estimated GFR (MDRD) 31 L (>60) Glucose 118 H (74-106) mg/dL Calcium 9.2 (8.5-10.1) mg/dL Philippe Results Last 24 Hours: Microbiology 08/17/17 22:13 Urine Culture - Preliminary Urine, Louie Cath (Indwelling) NO GROWTH AFTER 1 DAY 08/16/17 22:16 Aerobic Blood Culture - Preliminary Blood - Arm, Left NO GROWTH AFTER 2 DAYS Anaerobic Blood Culture - Preliminary NO GROWTH AFTER 2 DAYS 08/16/17 21:55 Aerobic Blood Culture - Preliminary Blood - Arm, Left NO GROWTH AFTER 2 DAYS Anaerobic Blood Culture - Preliminary NO GROWTH AFTER 2 DAYS 08/17/17 20:20 Aerobic Blood Culture - Preliminary Blood - Arm, Right NO GROWTH AFTER 1 DAY Anaerobic Blood Culture - Preliminary NO GROWTH AFTER 1 DAY 08/17/17 20:15 Aerobic Blood Culture - Preliminary Blood - Arm, Right NO GROWTH AFTER 1 DAY Anaerobic Blood Culture - Preliminary NO GROWTH AFTER 1 DAY 08/18/17 16:28 Gram Stain - Final Catheter Site - Intravenous Catheter Med Orders - Current: Current Medications Acetaminophen (Tylenol) 650 mg RECTAL Q4H PRN PRN Reason: Fever Last Admin: 08/17/17 20:58 Dose: 650 mg Benzocaine/Menthol (Cepacol Sore Throat) 1 lozenge MUCMEM Q1H PRN PRN Reason: Sore Throat Dimethicone/Zinc Oxide (Rash Relief-Zinc Oxide Jolon) 0 gm TOP ASDIRECTED PRN PRN Reason: Rash Last Admin: 08/18/17 14:30 Dose: 2 sprays Diphenhydramine HCl (Benadryl) 50 mg IVPUSH Q4H PRN PRN Reason: Itching Last Admin: 08/16/17 21:14 Dose: 50 mg Enoxaparin Sodium (Lovenox) 90 mg SUBCUT Q12H DELANEY Last Admin: 08/19/17 08:26 Dose: 90 mg Fentanyl Citrate (Fentanyl In Ns 20 Mcg/Ml 30 Ml Social Work Program Coordinator) 0 mcg IV ASDIRECTED PRN; Protocol PRN Reason: PAIN Last Admin: 08/18/17 14:01 Dose: 600 mcg Fluticasone Propionate (Flonase) 0 gm NASBOTH DAILY PRN PRN Reason: Congestion Heparin Sodium (Porcine) (Heparin Lock Flush 100 Units/Ml) 500 units FLUSH 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 Last Admin: 08/17/17 04:45 Dose: 500 units Hydroxyzine HCl (Vistaril) 50 - 100 mg IM Q4H PRN PRN Reason: Nausea Last Admin: 08/18/17 16:42 Dose: 100 mg Potassium Chloride/Sodium Chloride (Normal Saline With 20 Meq Kcl) 1,000 mls @ 125 mls/hr IV ASDIRECTED [facility] Last Admin: 08/19/17 02:57 Dose: 125 mls/hr Albumin Human (Albumin 25%) 25 gm in 100 mls @ 25 mls/hr IV DAILY DELANEY Stop: 08/20/17 12:59 Last Admin: 08/19/17 08:21 Dose: 25 mls/hr Albumin Human (Albumin 25%) 25 gm in 100 mls @ 25 mls/hr IV Q24H [facility] Stop: 08/20/17 16:59 Last Admin: 08/18/17 12:52 Dose: 25 mls/hr Linezolid 600 mg/ Premix 300 mls @ 300 mls/hr IV Q12H [facility] Last Admin: 08/19/17 08:14 Dose: 300 mls/hr Meropenem 1 gm/ Sodium (Chloride) 50 mls @ 100 mls/hr IV Q12H [facility] Last Admin: 08/19/17 09:41 Dose: 100 mls/hr Levofloxacin/Dextrose 750 mg/ (Premix) 150 mls @ 100 mls/hr IV Q24H [facility] Last Admin: 08/18/17 21:34 Dose: 100 mls/hr Multivitamins/Minerals 10 ml/Chromium/Copper/Manganese/Seleni/Zn 1 ml/ Amino Ac/ Electrol/Dextrose/Calcium 1,011 mls @ 76 mls/hr IV .BY DURATION [facility] Last Admin: 08/19/17 10:22 Dose: 76 mls/hr Amino Ac/Electrol/Dextrose/Calcium (Clinimix E 01/27) 1,000 mls @ 76 mls/hr IV .BY DURATION [facility] Fat Emulsion Intravenous (Intralipid 20%) 100 mls @ 8.5 mls/hr IV ONETIME ONE Stop: 08/20/17 05:45 Lactated Ringer's (Ringers, Lactated) 1,000 mls @ 200 mls/hr IV ASDIRECTED DELANEY Stop: 08/19/17 15:46 Lorazepam (Ativan) 0.5 - 1.5 mg IVPUSH Q6H PRN PRN Reason: Anxiety Last Admin: 08/19/17 02:56 Dose: 1.5 mg Metoprolol Tartrate (Lopressor) 2.5 mg IVPUSH Q4H [facility] Last Admin: 08/19/17 09:39 Dose: 2.5 mg Naloxone HCl (Narcan) 0.1 mg IV ASDIRECTED PRN PRN Reason: RESP. DEPRESSION Ondansetron HCl (Zofran) 4 mg IVPUSH Q4H PRN PRN Reason: Nausea/Vomiting Last Admin: 08/13/17 13:44 Dose: 4 mg Pantoprazole Sodium (Protonix Iv) 40 mg IVPUSH Q24H [facility] Last Admin: 08/18/17 16:30 Dose: 40 mg Discontinued Medications Bacitracin (Bacitracin Oint 1 Gm) 1 dose TOP ONETIME ONE Stop: 08/14/17 10:46 Last Admin: 08/14/17 11:00 Dose: 1 dose Bupivacaine HCl (Marcaine 0.5%) Confirm Administered Dose 50 ml .ROUTE .STK-MED ONE Stop: 08/18/17 13:39 Dexamethasone (Dexamethasone) Confirm Administered Dose 4 mg .ROUTE .STK-MED ONE Stop: 08/10/17 10:37 Dexamethasone (Dexamethasone) Confirm Administered Dose 4 mg .ROUTE .STK-MED ONE Stop: 08/11/17 00:15 Dexamethasone (Dexamethasone) Confirm Administered Dose 4 mg .ROUTE .STK-MED ONE Stop: 08/12/17 15:54 Dexamethasone (Dexamethasone) Confirm Administered Dose 4 mg .ROUTE .STK-MED ONE Stop: 08/15/17 07:28 Enoxaparin Sodium (Lovenox) 40 mg SUBCUT DAILY [facility] Last Admin: 08/15/17 14:10 Dose: 40 mg Enoxaparin Sodium (Lovenox) 90 mg SUBCUT DAILY [facility] Fentanyl (Sublimaze) Confirm Administered Dose 250 mcg .ROUTE .STK-MED ONE Stop: 08/10/17 10:37 Fentanyl (Sublimaze) Confirm Administered Dose 250 mcg .ROUTE .STK-MED ONE Stop: 08/10/17 13:06 Fentanyl (Sublimaze) Confirm Administered Dose 250 mcg .ROUTE .STK-MED ONE Stop: 08/11/17 00:15 Fentanyl (Sublimaze) Confirm Administered Dose 250 mcg .ROUTE .STK-MED ONE Stop: 08/12/17 15:53 Fentanyl (Sublimaze) Confirm Administered Dose 250 mcg .ROUTE .STK-MED ONE Stop: 08/15/17 07:29 Fentanyl (Sublimaze) Confirm Administered Dose 100 mcg .ROUTE .STK-MED ONE Stop: 08/18/17 14:54 Fentanyl Citrate (Fentanyl In Ns 20 Mcg/Ml 30 Ml Social Work Program Coordinator) Confirm Administered Dose 600 mcg .ROUTE .STK-MED ONE Stop: 08/10/17 15:41 Last Admin: 08/10/17 16:35 Dose: 10 mcg Glycopyrrolate (Robinul) Confirm Administered Dose 1 mg .ROUTE .STK-MED ONE Stop: 08/10/17 10:37 Glycopyrrolate (Robinul) Confirm Administered Dose 1 mg .ROUTE .ST-MED ONE Stop: 08/11/17 00:15 Glycopyrrolate (Robinul) Confirm Administered Dose 1 mg .ROUTE .STK-MED ONE Stop: 08/12/17 15:54 Glycopyrrolate (Robinul) Confirm Administered Dose 1 mg .ROUTE .STK-MED ONE Stop: 08/15/17 07:28 Heparin Sodium (Porcine) (Heparin Lock Flush 100 Units/Ml) Confirm Administered Dose 1,000 units .ROUTE .STK-MED ONE Stop: 08/10/17 10:55 Last Admin: 08/10/17 12:15 Dose: 1,000 units Heparin Sodium (Porcine) (Heparin Lock Flush 100 Units/Ml) Confirm Administered Dose 500 units .ROUTE .STK-MED ONE Stop: 08/12/17 15:46 Last Admin: 08/12/17 16:13 Dose: Not Given Heparin Sodium (Porcine) (Heparin Lock Flush 100 Units/Ml) Confirm Administered Dose 1,000 units .ROUTE .STK-MED ONE Stop: 08/18/17 15:21 Heparin Sodium (Porcine) (Heparin Lock Flush 100 Units/Ml) Confirm Administered Dose 500 units .ROUTE .STK-MED ONE Stop: 08/18/17 15:25 Sodium Chloride (Normal Saline) 1,000 mls @ 100 mls/hr IV ASDIRECTED [facility] Last Admin: 08/11/17 09:53 Dose: 100 mls/hr Piperacillin/Tazobactam/ (Dextrose 4.5 gm/ Premix) 100 mls @ 200 mls/hr IV ONETIME ONE Stop: 08/10/17 11:29 Last Admin: 08/10/17 11:09 Dose: 200 mls/hr Lactated Ringer's (Ringers, Lactated) Confirm Administered Dose 1,000 mls @ as directed .ROUTE .STK-MED ONE Stop: 08/10/17 15:24 Lactated Ringer's (Ringers, Lactated) Confirm Administered Dose 1,000 mls @ as directed .ROUTE .STK-MED ONE Stop: 08/10/17 15:24 Piperacillin Sod/Tazobactam (Sod 4.5 gm/ Sodium Chloride) 100 mls @ 200 mls/hr IV Q8H [facility] Last Admin: 08/11/17 04:06 Dose: 200 mls/hr Sodium Chloride (Normal Saline) 1,000 mls @ 500 mls/hr IV ASDIRECTED [facility] Last Infusion: 08/10/17 20:36 Dose: 0 mls/hr Piperacillin/Tazobactam/ (Dextrose 4.5 gm/ Premix) 100 mls @ 200 mls/hr IV Q8H [facility] Last Admin: 08/15/17 03:39 Dose: 200 mls/hr Sodium Chloride (Normal Saline) 1,000 mls @ 125 mls/hr IV ASDIRECTED [facility] Last Admin: 08/12/17 20:25 Dose: 125 mls/hr Vancomycin HCl 1 gm/ Sodium (Chloride) 250 mls @ 150 mls/hr IV ONETIME ONE Stop: 08/11/17 21:37 Last Admin: 08/11/17 20:27 Dose: Not Given Vancomycin HCl 1.5 gm/ Sodium (Chloride) 250 mls @ 166.667 mls/hr IV Q12H [facility] Last Admin: 08/13/17 10:19 Dose: Not Given Potassium Chloride 20 meq/Lidocaine HCl 2 ml/ Sodium Chloride 112 mls @ 56 mls/ hr IV Q2H [facility] Stop: 08/12/17 14:59 Last Admin: 08/12/17 13:17 Dose: 56 mls/hr Potassium Chloride 20 meq/ (Premix) 100 mls @ 50 mls/hr IV ONETIME ONE Stop: 08/12/17 17:59 Last Admin: 08/12/17 15:38 Dose: 50 mls/hr Vancomycin HCl 1.6 gm/ Sodium (Chloride) 250 mls @ 250 mls/hr IV Q12H [facility] Last Admin: 08/14/17 21:59 Dose: 250 mls/hr Potassium Chloride/Dextrose/Sod Cl (D5 1/2 Ns W/ 20 Meq/L Kcl) 1,000 mls @ 25 mls/hr IV ASDIRECTED [facility] Last Admin: 08/15/17 09:57 Dose: 25 mls/hr Multivitamins/Minerals 10 ml/Chromium/Copper/Manganese/Seleni/Zn 1 ml/ Amino Ac/ Electrol/Dextrose/Calcium 1,011 mls @ 76 mls/hr IV .BY DURATION [facility] Stop: 08/14/17 14:30 Last Admin: 08/13/17 13:11 Dose: 76 mls/hr Amino Ac/Electrol/Dextrose/Calcium (Clinimix E 5/15) 1,000 mls @ 76 mls/hr IV .BY DURATION [facility] Stop: 08/14/17 14:30 Last Admin: 08/14/17 02:18 Dose: 76 mls/hr Fat Emulsion Intravenous (Intralipid 20%) 100 mls @ 8.5 mls/hr IV ONETIME ONE Stop: 08/14/17 03:45 Last Admin: 08/13/17 15:54 Dose: 8.5 mls/hr Multivitamins/Minerals 10 ml/Chromium/Copper/Manganese/Seleni/Zn 1 ml/ Amino Ac/ Electrol/Dextrose/Calcium 1,011 mls @ 76 mls/hr IV .BY DURATION [facility] Stop: 08/16/17 15:55 Last Admin: 08/15/17 16:56 Dose: 76 mls/hr Amino Ac/Electrol/Dextrose/Calcium (Clinimix E 5/15) 1,000 mls @ 76 mls/hr IV .BY DURATION [facility] Stop: 08/16/17 15:55 Last Admin: 08/16/17 09:26 Dose: Not Given Fat Emulsion Intravenous (Intralipid 20%) 100 mls @ 8.3 mls/hr IV ONETIME ONE Stop: 08/15/17 04:02 Last Admin: 08/14/17 15:32 Dose: 8.3 mls/hr Sodium Chloride (Normal Saline) 1,000 mls @ 999 mls/hr IV .BOLUS ONE Stop: 08/15/17 08:51 Last Admin: 08/15/17 07:55 Dose: 999 mls/hr Piperacillin/Tazobactam/ (Dextrose 2.25 gm/ Premix) 50 mls @ 100 mls/hr IV Q6H [facility] Last Admin: 08/17/17 18:21 Dose: 100 mls/hr Fat Emulsion Intravenous (Intralipid 20%) 100 mls @ 8.5 mls/hr IV ONETIME ONE Stop: 08/16/17 05:45 Last Admin: 08/15/17 17:45 Dose: 8.5 mls/hr Sodium Chloride (Normal Saline) 1,000 mls @ 250 mls/hr IV ASDIRECTED [facility] Stop: 08/16/17 00:46 Last Admin: 08/16/17 00:09 Dose: 250 mls/hr Sodium Chloride (Normal Saline) 1,000 mls @ 125 mls/hr IV ASDIRECTED [facility] Last Admin: 08/16/17 06:50 Dose: 125 mls/hr Potassium Chloride 40 meq/ (Premix) 100 mls @ 25 mls/hr IV ONETIME ONE Stop: 08/15/17 22:48 Last Admin: 08/15/17 19:29 Dose: 25 mls/hr Sodium Chloride (Normal Saline) 1,000 mls @ 50 mls/hr IV ASDIRECTED [facility] Last Admin: 08/17/17 00:14 Dose: 50 mls/hr Multivitamins/Minerals 10 ml/Chromium/Copper/Manganese/Seleni/Zn 1 ml/ Amino Ac/ Electrol/Dextrose/Calcium 1,011 mls @ 76 mls/hr IV .BY DURATION [facility] Stop: 08/17/17 17:00 Last Admin: 08/16/17 15:41 Dose: 76 mls/hr Amino Ac/Electrol/Dextrose/Calcium (Clinimix E 15) 1,000 mls @ 76 mls/hr IV .BY DURATION [facility] Stop: 08/17/17 17:00 Last Admin: 08/17/17 05:13 Dose: 76 mls/hr Fat Emulsion Intravenous (Intralipid 20%) 100 mls @ 8.3 mls/hr IV ONETIME ONE Stop: 08/17/17 04:02 Last Admin: 08/16/17 15:42 Dose: 8.3 mls/hr Vancomycin HCl 1.5 gm/ Sodium (Chloride) 250 mls @ 167 mls/hr IV ONETIME ONE Stop: 08/16/17 17:29 Last Admin: 08/16/17 15:11 Dose: 167 mls/hr Potassium Chloride 40 meq/ (Premix) 100 mls @ 25 mls/hr IV ONETIME ONE Stop: 08/17/17 12:29 Last Admin: 08/17/17 08:16 Dose: 25 mls/hr Sodium Chloride (Normal Saline) 1,000 mls @ 250 mls/hr IV ASDIRECTED [facility] Stop: 08/17/17 16:01 Last Admin: 08/17/17 13:55 Dose: 250 mls/hr Fat Emulsion Intravenous (Intralipid 20%) 100 mls @ 8.3 mls/hr IV ONETIME ONE Stop: 08/18/17 04:02 Last Admin: 08/17/17 16:24 Dose: 8.3 mls/hr Multivitamins/Minerals 10 ml/Chromium/Copper/Manganese/Seleni/Zn 1 ml/ Amino Ac/ Electrol/Dextrose/Calcium 1,011 mls @ 76 mls/hr IV .BY DURATION [facility] Last Admin: 08/18/17 20:46 Dose: 76 mls/hr Amino Ac/Electrol/Dextrose/Calcium (Clinimix E 5/20) 1,000 mls @ 76 mls/hr IV .BY DURATION [facility] Last Admin: 08/18/17 07:29 Dose: 76 mls/hr Potassium Acetate 40 meq/ (Sodium Chloride) 120 mls @ 30 mls/hr IV ONETIME ONE Stop: 08/17/17 13:59 Last Admin: 08/17/17 09:45 Dose: 30 mls/hr Potassium Acetate 20 meq/ (Sodium Chloride) 110 mls @ 55 mls/hr IV ONETIME ONE Stop: 08/17/17 16:59 Last Admin: 08/17/17 14:37 Dose: 55 mls/hr Levofloxacin/Dextrose 750 mg/ (Premix) 150 mls @ 100 mls/hr IV Q48H [facility] Last Admin: 08/17/17 21:25 Dose: Not Given Lidocaine HCl (Xylocaine-Mpf 1%) Confirm Administered Dose 2 mls @ as directed .ROUTE .ST-MED ONE Stop: 08/18/17 15:00 Sodium Chloride (Normal Saline) Confirm Administered Dose 500 mls @ as directed .ROUTE .ST-MED ONE Stop: 08/18/17 15:31 Ketamine HCl (Ketalar) Confirm Administered Dose 500 mg .ROUTE .ST-MED ONE Stop: 08/11/17 00:16 Ketamine HCl (Ketalar) Confirm Administered Dose 500 mg .ROUTE .ST-MED ONE Stop: 08/15/17 07:29 Lidocaine HCl (Xylocaine 2%) Confirm Administered Dose 100 mg .ROUTE .[facility]-MED ONE Stop: 08/12/17 15:54 Lidocaine/Epinephrine (Xylocaine 1% With Epinephrine 1:100,000) Confirm Administered Dose 50 ml .ROUTE .[facility]-MED ONE Stop: 08/12/17 11:51 Lidocaine/Epinephrine (Xylocaine 1% With Epinephrine 1:100,000) Confirm Administered Dose 50 ml .ROUTE .[facility]-MED ONE Stop: 08/18/17 13:39 Meropenem (Merrem) Confirm Administered Dose 500 mg .ROUTE .[facility]-MED ONE Stop: 08/10/17 14:06 Last Admin: 08/10/17 14:14 Dose: 500 mg Midazolam HCl (Versed 1 Mg/Ml) Confirm Administered Dose 2 mg .ROUTE .ST-MED ONE Stop: 08/15/17 07:29 Midazolam HCl (Versed 1 Mg/Ml) Confirm Administered Dose 2 mg .ROUTE .[facility]-MED ONE Stop: 08/18/17 14:54 Neostigmine Methylsulfate (Neostigmine) Confirm Administered Dose 5 mg .ROUTE .ST-MED ONE Stop: 08/10/17 10:37 Neostigmine Methylsulfate (Neostigmine) Confirm Administered Dose 5 mg .ROUTE .ST-MED ONE Stop: 08/11/17 00:15 Neostigmine Methylsulfate (Neostigmine) Confirm Administered Dose 5 mg .ROUTE .ST-MED ONE Stop: 08/12/17 15:54 Neostigmine Methylsulfate (Neostigmine) Confirm Administered Dose 5 mg .ROUTE .ST-MED ONE Stop: 08/15/17 07:28 Check Scopolamine (Patch) 0 each .XX DAILY [facility] Stop: 08/13/17 09:01 Last Admin: 08/13/17 10:08 Dose: Not Given Non-Formulary Medication (Total Parenteral Nutrition, Central) 1,000 ml .XX .Continue Order [facility] PRN Reason: Protocol Stop: 08/18/17 13:00 Ondansetron HCl (Zofran) Confirm Administered Dose 4 mg .ROUTE .STK-MED ONE Stop: 08/10/17 10:37 Ondansetron HCl (Zofran) Confirm Administered Dose 8 mg .ROUTE .STK-MED ONE Stop: 08/10/17 16:21 Ondansetron HCl (Zofran) Confirm Administered Dose 4 mg .ROUTE .STK-MED ONE Stop: 08/11/17 00:15 Ondansetron HCl (Zofran) Confirm Administered Dose 4 mg .ROUTE .STK-MED ONE Stop: 08/12/17 15:54 Ondansetron HCl (Zofran) Confirm Administered Dose 4 mg .ROUTE .STK-MED ONE Stop: 08/15/17 07:28 Propofol (Diprivan 20 Ml) Confirm Administered Dose 200 mg .ROUTE .STK-MED ONE Stop: 08/10/17 10:37 Propofol (Diprivan 20 Ml) Confirm Administered Dose 200 mg .ROUTE .STK-MED ONE Stop: 08/12/17 15:54 Propofol (Diprivan 20 Ml) Confirm Administered Dose 200 mg .ROUTE .STK-MED ONE Stop: 08/15/17 07:28 Propofol (Diprivan 20 Ml) Confirm Administered Dose 200 mg .ROUTE .STK-MED ONE Stop: 08/18/17 14:54 Rocuronium [place] (Zemuron) Confirm Administered Dose 50 mg .ROUTE .STK-MED ONE Stop: 08/10/17 10:37 Rocuronium [place] (Zemuron) Confirm Administered Dose 50 mg .ROUTE .STK-MED ONE Stop: 08/10/17 13:50 Rocuronium [place] (Zemuron) Confirm Administered Dose 50 mg .ROUTE .STK-MED ONE Stop: 08/11/17 00:15 Rocuronium [place] (Zemuron) Confirm Administered Dose 50 mg .ROUTE .STK-MED ONE Stop: 08/12/17 15:54 Rocuronium [place] (Zemuron) Confirm Administered Dose 50 mg .ROUTE .STK-MED ONE Stop: 08/15/17 07:28 Scopolamine (Transderm-Scop) 1.5 mg TOP ONETIME ONE Stop: 08/10/17 16:20 Last Admin: 08/10/17 17:23 Dose: 1.5 mg Succinylcholine Chloride (Quelicin) Confirm Administered Dose 200 mg .ROUTE .STK -MED ONE Stop: 08/10/17 10:37 Succinylcholine Chloride (Quelicin) Confirm Administered Dose 200 mg .ROUTE .STK -MED ONE Stop: 08/11/17 00:15 Succinylcholine Chloride (Quelicin) Confirm Administered Dose 200 mg .ROUTE .STK -MED ONE Stop: 08/12/17 15:54 Succinylcholine Chloride (Quelicin) Confirm Administered Dose 200 mg .ROUTE .STK -MED ONE Stop: 08/15/17 07:28 Vancomycin HCl (Vancomycin) 1 gm IV .PHARMACY TO DOSE DELANEY Stop: 08/12/17 09:00 - Exam Quality Assessment: No: Supplemental Oxygen General: Alert, Oriented, Cooperative, No Acute Distress Neck: Supple Lungs: Normal Respiratory Effort Cardiovascular: Regular Rhythm, Tachycardia GI/Abdominal Exam: Soft, No Distention Extremities: No Pedal Edema. No: Increased Warmth Skin: Warm, Dry Psy/Mental Status: Alert, Normal Affect - Problem List Review Problem List Initiated/Reviewed/Updated: Yes - My Orders Last 24 Hours: My Active Orders 08/19/17 10:00 ALT Order 08/19/17 10:45 Lactated Ringers [Ringers, Lactated] 1,000 ml IV ASDIRECTED 08/19/17 18:00 Fat Emulsion [Intralipid 20%] 100 ml IV ONETIME 08/20/17 05:00 BASIC METABOLIC PANEL,BMP [CHEM] Timed CBC W/O DIFF,HEMOGRAM [HEME] Timed (1) MAGNESIUM [CHEM] Timed PHOSPHORUS [CHEM] Timed - Plan Plan:: ASSESSMENT AND RECOMMENDATIONS FEVER - no strong evidence for acute infection, cultures have been negative. Could be related to inflammation related to the fistula. Tolerating current antibiotics. Plan to start de-escalation tomorrow. 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 Currently nothing by mouth and on TPN. -Postoperative cares per Dr. Keyes -Continue TPN per surgical team ACUTE KIDNEY INJURY - no obvious cause for fairly high volume diuresis each day. She is not on any diuretics. Intake and output has been suboptimally balanced and weight has been decreasing each day. -Normal saline with 20 mEq of potassium chloride 125 mL per hour -TPN as above -Give additional liter of lactated Ringer's today -Additional Boluses as indicated based on intake and output balance -Continue to closely monitor urine output and renal function HISTORY OF DEEP VEIN THROMBOSIS AND PULMONARY EMBOLISM - currently on systemic anticoagulation with enoxaparin. -Enoxaparin 90 mg subcutaneous every 12 hours -Plan to restart Xarelto when she is able to take oral medications TYPE 2 DIABETES MELLITUS - blood sugars have been well controlled with the addition of insulin to the TPN. -Continue insulin in TPN HYPERTENSION - blood pressures have been mildly elevated intermittently but in general have been well controlled. -Metoprolol 2.5 mg IV every 4 hours -Transition to oral medications when able Kel Tabor MD
[2017-08-19] MEDS ORDERED: Lactated Ringers 1,000 ML IV SCH (10:45)
[2017-08-19] MEDS: Pantoprazole 40 MG Vial IVPUSH SCH (17:00)
[2017-08-19] MEDS ORDERED: Ketorolac 30 MG/ML SDV IVPUSH ONE (17:30)
[2017-08-19] MEDS ORDERED: Fat Emulsion 100 ML IV ONE (18:00)
[2017-08-19] MEDS: Levofloxacin/Dextrose 5%-Water 750 MG in Premix Bag 1 BAG IV SCH (21:12)
[2017-08-20] MEDS: LORazepam 2 MG/ML MDV IVPUSH PRN ×2 (02:02→10:07)
[2017-08-20] MEDS: Metoprolol Tartrate 5 MG/5 ML SDV IVPUSH SCH ×6 (02:02→22:07)
[2017-08-20] MEDS: NS + KCl 20mEq/L 1,000 ML IV SCH (06:25)
[2017-08-20] MEDS ORDERED: Lidocaine 1% with EPINEPHrine 1:100,000 50 ML MDV ONE (06:46)
[2017-08-20] MEDS ORDERED: Petrolatum,White Jelly 453.6 GM Tube TOP ONE (07:30)
[2017-08-20] MEDS ORDERED: fentaNYL 100 MCG/2 ML SDV ONE (07:31)
[2017-08-20] MEDS ORDERED: Propofol 200 MG/20 ML SDV ONE (07:31)
[2017-08-20] MEDS ORDERED: Midazolam 1 MG/ML 2 ML SDV ONE (07:31)
[2017-08-20] MEDS ORDERED: Lactated Ringers 1,000 ML ONE (07:41)
[2017-08-20] MEDS ORDERED: Central Total Parenteral Nutrition Bag SCH (08:30)
[2017-08-20] MEDS: Lactated Ringers 1,000 ML IV SCH ×3 (09:26→19:56)
[2017-08-20] MEDS: Enoxaparin 100 MG/1 ML Syringe SUBCUT SCH ×2 (09:54→21:03)
--- NOTE | 2017-08-20 10:05 | PN ---
DATE OF SERVICE: 08/20/2017 SUBJECTIVE: The patient continues to improve. Pain is controlled. No nausea, vomiting, shortness of breath, or chest pain. Still some mild bile leakage, however, comparatively on a day-to-day basis continued steady improvement. OBJECTIVE: VITAL SIGNS: Stable. CARDIOVASCULAR: Regular rhythm and rate. RESPIRATORY: Lungs clear to consultation bilaterally. ABDOMEN: Wound VAC intact. ASSESSMENT AND PLAN: To the operating room this morning for wound VAC exchange in addition to washout. We discussed risks, benefits, alternatives, and limitations of this plan. The patient understands these risks and wished to proceed. Jhonatan Keyes MD /[phone]
[2017-08-20] MEDS ORDERED: HYDROmorphone 0.5 MG/0.5 ML Syringe IVPUSH ONE (10:30)
--- NOTE | 2017-08-20 10:33 | PCM.PN ---
- General Info Date of Service: 08/20/17 - Review of Systems General: Reports: Weakness Gastrointestinal: Reports: Abdominal Pain Systems Review Comment:: no acute events overnight. Vital signs have been stable. No fever last night. She reports moderate abdominal pain this morning about an hour after returning from her wound VAC change. She doesn't think the fentanyl is helping with her pain much. Headache seems better today than yesterday. Didn't sleep well last night. Cultures remained negative. - Patient Data Vitals - Most Recent: Last Vital Signs Temp 36.8 C 08/20/17 09:30 Pulse 113 H 08/20/17 09:55 Resp 19 08/20/17 09:30 BP 130/55 L 08/20/17 09:55 Pulse Ox 99 08/20/17 09:30 Weight - Most Recent: 77.065 kg I&O - Last 24 Hours: Intake & Output 08/19/17 08/20/17 08/20/17 22:59 06:59 14:59 Intake Total 4834 Output Total 2440 1010 Balance -2440 3824 Lab Results Last 24 Hours: Laboratory Results - last 24 hr 08/20/17 08/20/17 Range/Units 04:15 04:15 WBC 15.4 H (4.5-11.0) K/uL RBC 3.57 (3.30-5.50) M/uL Hgb 10.3 L (12.0-15.0) g/dL Hct 31.7 L (36.0-48.0) % MCV 89 (80-98) fL MCH 29 (27-31) pg MCHC 33 (32-36) % Plt Count 734 H (150-400) K/uL Sodium 143 (140-148) mmol/L Potassium 4.4 (3.6-5.2) mmol/L Chloride 110 H (100-108) mmol/L Carbon Dioxide 21 (21-32) mmol/L Anion Gap 16.4 H (5.0-14.0) mmol/L BUN 31 H (7-18) mg/dL Creatinine 1.7 H (0.6-1.0) mg/dL Est Cr Clr Drug Dosing 31.61 mL/min Estimated GFR (MDRD) 31 L (>60) Glucose 116 H (74-106) mg/dL Calcium 9.0 (8.5-10.1) mg/dL Phosphorus 4.4 (2.5-4.9) mg/dL Magnesium 1.9 (1.8-2.4) mg/dL Philippe Results Last 24 Hours: Microbiology 08/18/17 16:28 Gram Stain - Final Catheter Site - Intravenous Catheter Wound Culture - Preliminary NO GROWTH AFTER 1 DAY Anaerobic Culture - Preliminary NO GROWTH AFTER 1 DAY 08/17/17 22:13 Urine Culture - Final Urine, Louie Cath (Indwelling) NO GROWTH AFTER 2 DAYS 08/16/17 22:16 Aerobic Blood Culture - Preliminary Blood - Arm, Left NO GROWTH AFTER 3 DAYS Anaerobic Blood Culture - Preliminary NO GROWTH AFTER 3 DAYS 08/16/17 21:55 Aerobic Blood Culture - Preliminary Blood - Arm, Left NO GROWTH AFTER 3 DAYS Anaerobic Blood Culture - Preliminary NO GROWTH AFTER 3 DAYS 08/17/17 20:20 Aerobic Blood Culture - Preliminary Blood - Arm, Right NO GROWTH AFTER 2 DAYS Anaerobic Blood Culture - Preliminary NO GROWTH AFTER 2 DAYS 08/17/17 20:15 Aerobic Blood Culture - Preliminary Blood - Arm, Right NO GROWTH AFTER 2 DAYS Anaerobic Blood Culture - Preliminary NO GROWTH AFTER 2 DAYS Med Orders - Current: Current Medications Acetaminophen (Tylenol) 650 mg RECTAL Q4H PRN PRN Reason: Fever Last Admin: 08/17/17 20:58 Dose: 650 mg Benzocaine/Menthol (Cepacol Sore Throat) 1 lozenge MUCMEM Q1H PRN PRN Reason: Sore Throat Dimethicone/Zinc Oxide (Rash Relief-Zinc Oxide [place]) 0 gm TOP ASDIRECTED PRN PRN Reason: Rash Last Admin: 08/18/17 14:30 Dose: 2 sprays Diphenhydramine HCl (Benadryl) 50 mg IVPUSH Q4H PRN PRN Reason: Itching Last Admin: 08/16/17 21:14 Dose: 50 mg Enoxaparin Sodium (Lovenox) 90 mg SUBCUT Q12H [facility] Last Admin: 08/20/17 09:54 Dose: 90 mg Fentanyl Citrate (Fentanyl In Ns 20 Mcg/Ml 30 Ml [place]) 0 mcg IV ASDIRECTED PRN; Protocol PRN Reason: PAIN Last Admin: 08/18/17 14:01 Dose: 600 mcg Fluticasone Propionate (Flonase) 0 gm NASBOTH DAILY PRN PRN Reason: Congestion Heparin Sodium (Porcine) (Heparin Lock Flush 100 Units/Ml) 500 units FLUSH 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 Last Admin: 08/20/17 10:25 Dose: 500 units Hydromorphone HCl (Dilaudid) 0.5 mg IVPUSH ONETIME ONE Stop: 08/20/17 10:31 Hydroxyzine HCl (Vistaril) 50 - 100 mg IM Q4H PRN PRN Reason: Nausea Last Admin: 08/18/17 16:42 Dose: 100 mg Albumin Human (Albumin 25%) 25 gm in 100 mls @ 25 mls/hr IV DAILY [facility] Stop: 08/20/17 12:59 Last Admin: 08/20/17 09:53 Dose: 25 mls/hr Albumin Human (Albumin 25%) 25 gm in 100 mls @ 25 mls/hr IV Q24H [facility] Stop: 08/20/17 16:59 Last Admin: 08/19/17 12:15 Dose: 25 mls/hr Meropenem 1 gm/ Sodium (Chloride) 50 mls @ 100 mls/hr IV Q12H [facility] Last Admin: 08/20/17 10:20 Dose: 100 mls/hr Levofloxacin/Dextrose 750 mg/ (Premix) 150 mls @ 100 mls/hr IV Q24H [facility] Last Admin: 08/19/17 21:12 Dose: 100 mls/hr Multivitamins/Minerals 10 ml/Chromium/Copper/Manganese/Seleni/Zn 1 ml/ Amino Ac/ Electrol/Dextrose/Calcium 1,011 mls @ 76 mls/hr IV .BY DURATION [facility] Last Admin: 08/19/17 10:22 Dose: 76 mls/hr Amino Ac/Electrol/Dextrose/Calcium (Clinimix E 5/15) 1,000 mls @ 76 mls/hr IV .BY DURATION [facility] Last Admin: 08/19/17 23:32 Dose: 76 mls/hr Lactated Ringer's (Ringers, Lactated) 1,000 mls @ 200 mls/hr IV ASDIRECTED [facility] Last Admin: 08/20/17 09:26 Dose: 200 mls/hr Fat Emulsion Intravenous (Intralipid 20%) 100 mls @ 8.5 mls/hr IV ONETIME ONE Stop: 08/21/17 05:45 Lorazepam (Ativan) 0.5 - 1.5 mg IVPUSH Q6H PRN PRN Reason: Anxiety Last Admin: 08/20/17 10:07 Dose: 1.5 mg Metoprolol Tartrate (Lopressor) 2.5 mg IVPUSH Q4H [facility] Last Admin: 08/20/17 09:55 Dose: 2.5 mg Naloxone HCl (Narcan) 0.1 mg IV ASDIRECTED PRN PRN Reason: RESP. DEPRESSION Non-Formulary Medication (Total Parenteral Nutrition, Central) 1,000 ml .XX .Continue Order [facility] Stop: 08/21/17 06:00 Ondansetron HCl (Zofran) 4 mg IVPUSH Q4H PRN PRN Reason: Nausea/Vomiting Last Admin: 08/13/17 13:44 Dose: 4 mg Pantoprazole Sodium (Protonix Iv) 40 mg IVPUSH Q24H [facility] Last Admin: 08/19/17 17:00 Dose: 40 mg Discontinued Medications Bacitracin (Bacitracin Oint 1 Gm) 1 dose TOP ONETIME ONE Stop: 08/14/17 10:46 Last Admin: 08/14/17 11:00 Dose: 1 dose Bupivacaine HCl (Marcaine 0.5%) Confirm Administered Dose 50 ml .ROUTE .STK-MED ONE Stop: 08/18/17 13:39 Dexamethasone (Dexamethasone) Confirm Administered Dose 4 mg .ROUTE .STK-MED ONE Stop: 08/10/17 10:37 Dexamethasone (Dexamethasone) Confirm Administered Dose 4 mg .ROUTE .STK-MED ONE Stop: 08/11/17 00:15 Dexamethasone (Dexamethasone) Confirm Administered Dose 4 mg .ROUTE .STK-MED ONE Stop: 08/12/17 15:54 Dexamethasone (Dexamethasone) Confirm Administered Dose 4 mg .ROUTE .STK-MED ONE Stop: 08/15/17 07:28 Enoxaparin Sodium (Lovenox) 40 mg SUBCUT DAILY [facility] Last Admin: 08/15/17 14:10 Dose: 40 mg Enoxaparin Sodium (Lovenox) 90 mg SUBCUT DAILY [facility] Fentanyl (Sublimaze) Confirm Administered Dose 250 mcg .ROUTE .STK-MED ONE Stop: 08/10/17 10:37 Fentanyl (Sublimaze) Confirm Administered Dose 250 mcg .ROUTE .STK-MED ONE Stop: 08/10/17 13:06 Fentanyl (Sublimaze) Confirm Administered Dose 250 mcg .ROUTE .STK-MED ONE Stop: 08/11/17 00:15 Fentanyl (Sublimaze) Confirm Administered Dose 250 mcg .ROUTE .STK-MED ONE Stop: 08/12/17 15:53 Fentanyl (Sublimaze) Confirm Administered Dose 250 mcg .ROUTE .STK-MED ONE Stop: 08/15/17 07:29 Fentanyl (Sublimaze) Confirm Administered Dose 100 mcg .ROUTE .STK-MED ONE Stop: 08/18/17 14:54 Fentanyl (Sublimaze) Confirm Administered Dose 100 mcg .ROUTE .STK-MED ONE Stop: 08/20/17 07:32 Fentanyl Citrate (Fentanyl In Ns 20 Mcg/Ml 30 Ml [place]) Confirm Administered Dose 600 mcg .ROUTE .STK-MED ONE Stop: 08/10/17 15:41 Last Admin: 08/10/17 16:35 Dose: 10 mcg Glycopyrrolate (Robinul) Confirm Administered Dose 1 mg .ROUTE .STK-MED ONE Stop: 08/10/17 10:37 Glycopyrrolate (Robinul) Confirm Administered Dose 1 mg .ROUTE .STK-MED ONE Stop: 08/11/17 00:15 Glycopyrrolate (Robinul) Confirm Administered Dose 1 mg .ROUTE .STK-MED ONE Stop: 08/12/17 15:54 Glycopyrrolate (Robinul) Confirm Administered Dose 1 mg .ROUTE .STK-MED ONE Stop: 08/15/17 07:28 Heparin Sodium (Porcine) (Heparin Lock Flush 100 Units/Ml) Confirm Administered Dose 1,000 units .ROUTE .STK-MED ONE Stop: 08/10/17 10:55 Last Admin: 08/10/17 12:15 Dose: 1,000 units Heparin Sodium (Porcine) (Heparin Lock Flush 100 Units/Ml) Confirm Administered Dose 500 units .ROUTE .STK-MED ONE Stop: 08/12/17 15:46 Last Admin: 08/12/17 16:13 Dose: Not Given Heparin Sodium (Porcine) (Heparin Lock Flush 100 Units/Ml) Confirm Administered Dose 1,000 units .ROUTE .STK-MED ONE Stop: 08/18/17 15:21 Heparin Sodium (Porcine) (Heparin Lock Flush 100 Units/Ml) Confirm Administered Dose 500 units .ROUTE .STK-MED ONE Stop: 08/18/17 15:25 Sodium Chloride (Normal Saline) 1,000 mls @ 100 mls/hr IV ASDIRECTED [facility] Last Admin: 08/11/17 09:53 Dose: 100 mls/hr Piperacillin/Tazobactam/ (Dextrose 4.5 gm/ Premix) 100 mls @ 200 mls/hr IV ONETIME ONE Stop: 08/10/17 11:29 Last Admin: 08/10/17 11:09 Dose: 200 mls/hr Lactated Ringer's (Ringers, Lactated) Confirm Administered Dose 1,000 mls @ as directed .ROUTE .STK-MED ONE Stop: 08/10/17 15:24 Lactated Ringer's (Ringers, Lactated) Confirm Administered Dose 1,000 mls @ as directed .ROUTE .K-MED ONE Stop: 08/10/17 15:24 Piperacillin Sod/Tazobactam (Sod 4.5 gm/ Sodium Chloride) 100 mls @ 200 mls/hr IV Q8H [facility] Last Admin: 08/11/17 04:06 Dose: 200 mls/hr Sodium Chloride (Normal Saline) 1,000 mls @ 500 mls/hr IV ASDIRECTED [facility] Last Infusion: 08/10/17 20:36 Dose: 0 mls/hr Piperacillin/Tazobactam/ (Dextrose 4.5 gm/ Premix) 100 mls @ 200 mls/hr IV Q8H [facility] Last Admin: 08/15/17 03:39 Dose: 200 mls/hr Sodium Chloride (Normal Saline) 1,000 mls @ 125 mls/hr IV ASDIRECTED [facility] Last Admin: 08/12/17 20:25 Dose: 125 mls/hr Vancomycin HCl 1 gm/ Sodium (Chloride) 250 mls @ 150 mls/hr IV ONETIME ONE Stop: 08/11/17 21:37 Last Admin: 08/11/17 20:27 Dose: Not Given Vancomycin HCl 1.5 gm/ Sodium (Chloride) 250 mls @ 166.667 mls/hr IV Q12H [facility] Last Admin: 08/13/17 10:19 Dose: Not Given Potassium Chloride 20 meq/Lidocaine HCl 2 ml/ Sodium Chloride 112 mls @ 56 mls/ hr IV Q2H [facility] Stop: 08/12/17 14:59 Last Admin: 08/12/17 13:17 Dose: 56 mls/hr Potassium Chloride 20 meq/ (Premix) 100 mls @ 50 mls/hr IV ONETIME ONE Stop: 08/12/17 17:59 Last Admin: 08/12/17 15:38 Dose: 50 mls/hr Vancomycin HCl 1.6 gm/ Sodium (Chloride) 250 mls @ 250 mls/hr IV Q12H [facility] Last Admin: 08/14/17 21:59 Dose: 250 mls/hr Potassium Chloride/Dextrose/Sod Cl (D5 1/2 Ns W/ 20 Meq/L Kcl) 1,000 mls @ 25 mls/hr IV ASDIRECTED [facility] Last Admin: 08/15/17 09:57 Dose: 25 mls/hr Multivitamins/Minerals 10 ml/Chromium/Copper/Manganese/Seleni/Zn 1 ml/ Amino Ac/ Electrol/Dextrose/Calcium 1,011 mls @ 76 mls/hr IV .BY DURATION [facility] Stop: 08/14/17 14:30 Last Admin: 08/13/17 13:11 Dose: 76 mls/hr Amino Ac/Electrol/Dextrose/Calcium (Clinimix E 5/15) 1,000 mls @ 76 mls/hr IV .BY DURATION [facility] Stop: 08/14/17 14:30 Last Admin: 08/14/17 02:18 Dose: 76 mls/hr Fat Emulsion Intravenous (Intralipid 20%) 100 mls @ 8.5 mls/hr IV ONETIME ONE Stop: 08/14/17 03:45 Last Admin: 08/13/17 15:54 Dose: 8.5 mls/hr Multivitamins/Minerals 10 ml/Chromium/Copper/Manganese/Seleni/Zn 1 ml/ Amino Ac/ Electrol/Dextrose/Calcium 1,011 mls @ 76 mls/hr IV .BY DURATION [facility] Stop: 08/16/17 15:55 Last Admin: 08/15/17 16:56 Dose: 76 mls/hr Amino Ac/Electrol/Dextrose/Calcium (Clinimix E 5/15) 1,000 mls @ 76 mls/hr IV .BY DURATION [facility] Stop: 08/16/17 15:55 Last Admin: 08/16/17 09:26 Dose: Not Given Fat Emulsion Intravenous (Intralipid 20%) 100 mls @ 8.3 mls/hr IV ONETIME ONE Stop: 08/15/17 04:02 Last Admin: 08/14/17 15:32 Dose: 8.3 mls/hr Sodium Chloride (Normal Saline) 1,000 mls @ 999 mls/hr IV .BOLUS ONE Stop: 08/15/17 08:51 Last Admin: 08/15/17 07:55 Dose: 999 mls/hr Piperacillin/Tazobactam/ (Dextrose 2.25 gm/ Premix) 50 mls @ 100 mls/hr IV Q6H [facility] Last Admin: 08/17/17 18:21 Dose: 100 mls/hr Fat Emulsion Intravenous (Intralipid 20%) 100 mls @ 8.5 mls/hr IV ONETIME ONE Stop: 08/16/17 05:45 Last Admin: 08/15/17 17:45 Dose: 8.5 mls/hr Sodium Chloride (Normal Saline) 1,000 mls @ 250 mls/hr IV ASDIRECTED [facility] Stop: 08/16/17 00:46 Last Admin: 08/16/17 00:09 Dose: 250 mls/hr Sodium Chloride (Normal Saline) 1,000 mls @ 125 mls/hr IV ASDIRECTED [facility] Last Admin: 08/16/17 06:50 Dose: 125 mls/hr Potassium Chloride 40 meq/ (Premix) 100 mls @ 25 mls/hr IV ONETIME ONE Stop: 08/15/17 22:48 Last Admin: 08/15/17 19:29 Dose: 25 mls/hr Sodium Chloride (Normal Saline) 1,000 mls @ 50 mls/hr IV ASDIRECTED [facility] Last Admin: 08/17/17 00:14 Dose: 50 mls/hr Multivitamins/Minerals 10 ml/Chromium/Copper/Manganese/Seleni/Zn 1 ml/ Amino Ac/ Electrol/Dextrose/Calcium 1,011 mls @ 76 mls/hr IV .BY DURATION [facility] Stop: 08/17/17 17:00 Last Admin: 08/16/17 15:41 Dose: 76 mls/hr Amino Ac/Electrol/Dextrose/Calcium (Clinimix E 5/15) 1,000 mls @ 76 mls/hr IV .BY DURATION [facility] Stop: 08/17/17 17:00 Last Admin: 12/03/17 05:13 Dose: 76 mls/hr Fat Emulsion Intravenous (Intralipid 20%) 100 mls @ 8.3 mls/hr IV ONETIME ONE Stop: 08/17/17 04:02 Last Admin: 08/16/17 15:42 Dose: 8.3 mls/hr Vancomycin HCl 1.5 gm/ Sodium (Chloride) 250 mls @ 167 mls/hr IV ONETIME ONE Stop: 08/16/17 17:29 Last Admin: 08/16/17 15:11 Dose: 167 mls/hr Potassium Chloride 40 meq/ (Premix) 100 mls @ 25 mls/hr IV ONETIME ONE Stop: 08/17/17 12:29 Last Admin: 08/17/17 08:16 Dose: 25 mls/hr Potassium Chloride/Sodium Chloride (Normal Saline With 20 Meq Kcl) 1,000 mls @ 125 mls/hr IV ASDIRECTED [facility] Last Admin: 08/20/17 06:25 Dose: 125 mls/hr Sodium Chloride (Normal Saline) 1,000 mls @ 250 mls/hr IV ASDIRECTED [facility] Stop: 08/17/17 16:01 Last Admin: 08/17/17 13:55 Dose: 250 mls/hr Fat Emulsion Intravenous (Intralipid 20%) 100 mls @ 8.3 mls/hr IV ONETIME ONE Stop: 08/18/17 04:02 Last Admin: 08/17/17 16:24 Dose: 8.3 mls/hr Multivitamins/Minerals 10 ml/Chromium/Copper/Manganese/Seleni/Zn 1 ml/ Amino Ac/ Electrol/Dextrose/Calcium 1,011 mls @ 76 mls/hr IV .BY DURATION [facility] Last Admin: 08/18/17 20:46 Dose: 76 mls/hr Amino Ac/Electrol/Dextrose/Calcium (Clinimix E 5/20) 1,000 mls @ 76 mls/hr IV .BY DURATION [facility] Last Admin: 08/18/17 07:29 Dose: 76 mls/hr Potassium Acetate 40 meq/ (Sodium Chloride) 120 mls @ 30 mls/hr IV ONETIME ONE Stop: 08/17/17 13:59 Last Admin: 08/17/17 09:45 Dose: 30 mls/hr Potassium Acetate 20 meq/ (Sodium Chloride) 110 mls @ 55 mls/hr IV ONETIME ONE Stop: 08/17/17 16:59 Last Admin: 08/17/17 14:37 Dose: 55 mls/hr Linezolid 600 mg/ Premix 300 mls @ 300 mls/hr IV Q12H [facility] Last Admin: 08/19/17 20:02 Dose: 300 mls/hr Levofloxacin/Dextrose 750 mg/ (Premix) 150 mls @ 100 mls/hr IV Q48H [facility] Last Admin: 08/17/17 21:25 Dose: Not Given Lidocaine HCl (Xylocaine-Mpf 1%) Confirm Administered Dose 2 mls @ as directed .ROUTE .STK-MED ONE Stop: 08/18/17 15:00 Sodium Chloride (Normal Saline) Confirm Administered Dose 500 mls @ as directed .ROUTE .STK-MED ONE Stop: 08/18/17 15:31 Fat Emulsion Intravenous (Intralipid 20%) 100 mls @ 8.5 mls/hr IV ONETIME ONE Stop: 08/20/17 05:45 Last Admin: 08/19/17 17:14 Dose: 8.5 mls/hr Lactated Ringer's (Ringers, Lactated) 1,000 mls @ 200 mls/hr IV ASDIRECTED [facility] Stop: 08/19/17 15:46 Lactated Ringer's (Ringers, Lactated) Confirm Administered Dose 1,000 mls @ as directed .ROUTE .STK-MED ONE Stop: 08/20/17 07:42 Ketamine HCl (Ketalar) Confirm Administered Dose 500 mg .ROUTE .STK-MED ONE Stop: 08/11/17 00:16 Ketamine HCl (Ketalar) Confirm Administered Dose 500 mg .ROUTE .STK-MED ONE Stop: 08/15/17 07:29 Ketorolac Tromethamine (Toradol) 15 mg IVPUSH ONETIME ONE Stop: 08/19/17 17:31 Last Admin: 08/19/17 17:25 Dose: 15 mg Lidocaine HCl (Xylocaine 2%) Confirm Administered Dose 100 mg .ROUTE .STK-MED ONE Stop: 08/12/17 15:54 Lidocaine/Epinephrine (Xylocaine 1% With Epinephrine 1:100,000) Confirm Administered Dose 50 ml .ROUTE .STK-MED ONE Stop: 08/12/17 11:51 Lidocaine/Epinephrine (Xylocaine 1% With Epinephrine 1:100,000) Confirm Administered Dose 50 ml .ROUTE .STK-MED ONE Stop: 08/18/17 13:39 Lidocaine/Epinephrine (Xylocaine 1% With Epinephrine 1:100,000) Confirm Administered Dose 50 ml .ROUTE .STK-MED ONE Stop: 08/20/17 06:47 Meropenem (Merrem) Confirm Administered Dose 500 mg .ROUTE .STK-MED ONE Stop: 08/10/17 14:06 Last Admin: 08/10/17 14:14 Dose: 500 mg Midazolam HCl (Versed 1 Mg/Ml) Confirm Administered Dose 2 mg .ROUTE .STK-MED ONE Stop: 08/15/17 07:29 Midazolam HCl (Versed 1 Mg/Ml) Confirm Administered Dose 2 mg .ROUTE .STK-MED ONE Stop: 08/18/17 14:54 Midazolam HCl (Versed 1 Mg/Ml) Confirm Administered Dose 2 mg .ROUTE .STK-MED ONE Stop: 08/20/17 07:32 Neostigmine Methylsulfate (Neostigmine) Confirm Administered Dose 5 mg .ROUTE .STK-MED ONE Stop: 08/10/17 10:37 Neostigmine Methylsulfate (Neostigmine) Confirm Administered Dose 5 mg .ROUTE .STK-MED ONE Stop: 08/11/17 00:15 Neostigmine Methylsulfate (Neostigmine) Confirm Administered Dose 5 mg .ROUTE .STK-MED ONE Stop: 08/12/17 15:54 Neostigmine Methylsulfate (Neostigmine) Confirm Administered Dose 5 mg .ROUTE .STK-MED ONE Stop: 08/15/17 07:28 Check Scopolamine (Patch) 0 each .XX DAILY [facility] Stop: 08/13/17 09:01 Last Admin: 08/13/17 10:08 Dose: Not Given Non-Formulary Medication (Total Parenteral Nutrition, Central) 1,000 ml .XX .Continue Order [facility] PRN Reason: Protocol Stop: 08/18/17 13:00 Ondansetron HCl (Zofran) Confirm Administered Dose 4 mg .ROUTE .STK-MED ONE Stop: 08/10/17 10:37 Ondansetron HCl (Zofran) Confirm Administered Dose 8 mg .ROUTE .STK-MED ONE Stop: 08/10/17 16:21 Ondansetron HCl (Zofran) Confirm Administered Dose 4 mg .ROUTE .STK-MED ONE Stop: 08/11/17 00:15 Ondansetron HCl (Zofran) Confirm Administered Dose 4 mg .ROUTE .STK-MED ONE Stop: 08/12/17 15:54 Ondansetron HCl (Zofran) Confirm Administered Dose 4 mg .ROUTE .STK-MED ONE Stop: 08/15/17 07:28 Petrolatum (Vaseline) 0 gm TOP ONETIME ONE Stop: 08/20/17 07:31 Last Admin: 08/20/17 09:43 Dose: 1 applic Propofol (Diprivan 20 Ml) Confirm Administered Dose 200 mg .ROUTE .ST-MED ONE Stop: 08/10/17 10:37 Propofol (Diprivan 20 Ml) Confirm Administered Dose 200 mg .ROUTE .STK-MED ONE Stop: 08/12/17 15:54 Propofol (Diprivan 20 Ml) Confirm Administered Dose 200 mg .ROUTE .ST-MED ONE Stop: 08/15/17 07:28 Propofol (Diprivan 20 Ml) Confirm Administered Dose 200 mg .ROUTE .STK-MED ONE Stop: 08/18/17 14:54 Propofol (Diprivan 20 Ml) Confirm Administered Dose 200 mg .ROUTE .ST-MED ONE Stop: 08/20/17 07:32 Rocuronium [place] (Zemuron) Confirm Administered Dose 50 mg .ROUTE .ST-MED ONE Stop: 08/10/17 10:37 Rocuronium [place] (Zemuron) Confirm Administered Dose 50 mg .ROUTE .ST-MED ONE Stop: 08/10/17 13:50 Rocuronium [place] (Zemuron) Confirm Administered Dose 50 mg .ROUTE .STK-MED ONE Stop: 08/11/17 00:15 Rocuronium [place] (Zemuron) Confirm Administered Dose 50 mg .ROUTE .ST-MED ONE Stop: 08/12/17 15:54 Rocuronium [place] (Zemuron) Confirm Administered Dose 50 mg .ROUTE .STK-MED ONE Stop: 08/15/17 07:28 Scopolamine (Transderm-Scop) 1.5 mg TOP ONETIME ONE Stop: 08/10/17 16:20 Last Admin: 08/10/17 17:23 Dose: 1.5 mg Succinylcholine Chloride (Quelicin) Confirm Administered Dose 200 mg .ROUTE .STK -MED ONE Stop: 08/10/17 10:37 Succinylcholine Chloride (Quelicin) Confirm Administered Dose 200 mg .ROUTE .STK -MED ONE Stop: 08/11/17 00:15 Succinylcholine Chloride (Quelicin) Confirm Administered Dose 200 mg .ROUTE .STK -MED ONE Stop: 08/12/17 15:54 Succinylcholine Chloride (Quelicin) Confirm Administered Dose 200 mg .ROUTE .STK -MED ONE Stop: 08/15/17 07:28 Vancomycin HCl (Vancomycin) 1 gm IV .PHARMACY TO DOSE [facility] Stop: 08/12/17 09:00 - Exam Quality Assessment: No: Supplemental Oxygen General: Alert, Oriented, Cooperative, No Acute Distress Neck: Supple Lungs: Clear to Auscultation, Normal Respiratory Effort Cardiovascular: Regular Rhythm, Tachycardia GI/Abdominal Exam: No Distention Extremities: No Pedal Edema Skin: Warm, Dry Psy/Mental Status: Alert, Normal Affect - Problem List Review Problem List Initiated/Reviewed/Updated: Yes - My Orders Last 24 Hours: My Active Orders 08/19/17 10:00 ALT Order 08/20/17 08:15 Lactated Ringers [Ringers, Lactated] 1,000 ml IV ASDIRECTED 08/20/17 08:30 Central TPN [Total Parenteral Nutrition, Central] 1,000 ml .XX .Continue Order 08/20/17 10:30 HYDROmorphone [Dilaudid] 0.5 mg IVPUSH ONETIME ONE 08/20/17 18:00 Fat Emulsion [Intralipid 20%] 100 ml IV ONETIME 08/21/17 05:00 BASIC METABOLIC PANEL,BMP [CHEM] Timed CBC W/O DIFF,HEMOGRAM [HEME] Timed (1) - Plan Plan:: ASSESSMENT AND RECOMMENDATIONS FEVER - no strong evidence for acute infection, cultures remain negative. Suspect inflammation related to the fistula. Tolerating current antibiotics. Plan to stop linezolid today. 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 Currently nothing by mouth and on TPN. -Postoperative cares per Dr. Keyes -Continue TPN ACUTE KIDNEY INJURY - no obvious cause for fairly high volume diuresis each day. She is not on any diuretics. Intake and output still not balanced. -LR at 200 ml/hr -TPN as above -Additional Boluses as indicated based on intake and output balance -Continue to closely monitor urine output and renal function HISTORY OF DEEP VEIN THROMBOSIS AND PULMONARY EMBOLISM - currently on systemic anticoagulation with enoxaparin. -Enoxaparin 90 mg subcutaneous every 12 hours -Plan to restart Xarelto when she is able to take oral medications TYPE 2 DIABETES MELLITUS - blood sugars have been well controlled with the addition of insulin to the TPN. -Continue insulin in TPN HYPERTENSION - blood pressures have been mildly elevated intermittently but in general have been well controlled. -Metoprolol 2.5 mg IV every 4 hours -Transition to oral medications when able Kel Tabor MD
[2017-08-20] MEDS: 1: AA 5%/Calcium/D15W/Lytes 1,000 ML with MVI, Adult with Vitamin K 10 ML, Chromium/Copp IV SCH ×3 (12:46)
--- NOTE | 2017-08-20 13:26 | OR ---
DATE OF PROCEDURE: 08/20/2017 PROCEDURE: 1. Wound VAC exchange (19356). 2. Washout of bacterial peritonitis (01650). COMPLICATIONS: None. 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 ANESTHESIA: MAC. INDICATIONS: This is a pleasant 61-year-old female with an ongoing fistula and open abdomen requiring re-evaluation and washout of her peritonitis. RISKS: Risks, benefits, alternatives, limitations including, but not limited to infection, bleeding, and injury to abdominal structures were explained to the patient, who wished to proceed. PROCEDURE IN DETAIL: The patient was placed in supine position. The abdomen was prepped and draped. The previous wound VAC was removed. There was some bile irritation associated with this, however, this has improved. Overall, the general abdominal condition shows continued improvement. There appears to be some granulation tissue forming. The fistula was noted with a Louie catheter. This was then reinforced with some 2-0 silk, which did have a loop associated with this. Normal saline was then used to irrigate the peritonitis. This was then washed and dried. The white petroleum gauze was used as an approximately 2 cm border to protect the skin surfaces. Adaptic was placed over the bowel itself. Silver sponge were then used at 75 mmHg pressure. This was overlaid with multiple plastic layers, and the drainage tube for the fistula was deflected superiorly at this time. No leaks were noted. The patient tolerated the procedure well. Jhonatan Keyes MD /[id number]
[2017-08-20] MEDS: Hydrocortisone Sodium Succinate 100 MG/2 ML SDV IVPUSH SCH ×2 (13:37→22:08)
[2017-08-20] MEDS: Pantoprazole 40 MG Vial IVPUSH SCH (16:49)
[2017-08-20] MEDS ORDERED: Fat Emulsion 100 ML IV ONE (18:00)
[2017-08-20] MEDS: Levofloxacin/Dextrose 5%-Water 750 MG in Premix Bag 1 BAG IV SCH (20:57)
[2017-08-21] MEDS: LORazepam 2 MG/ML MDV IVPUSH PRN ×4 (00:35→22:34)
[2017-08-21] MEDS: Lactated Ringers 1,000 ML IV SCH ×4 (01:21→16:56)
[2017-08-21] MEDS: Metoprolol Tartrate 5 MG/5 ML SDV IVPUSH SCH ×6 (01:23→22:08)
[2017-08-21] MEDS: 1: AA 5%/Calcium/D15W/Lytes 1,000 ML with MVI, Adult with Vitamin K 10 ML, Chromium/Copp IV SCH ×6 (01:23→14:11)
[2017-08-21] MEDS: Hydrocortisone Sodium Succinate 100 MG/2 ML SDV IVPUSH SCH ×3 (06:06→22:10)
[2017-08-21] MEDS: Enoxaparin 100 MG/1 ML Syringe SUBCUT SCH ×2 (08:55→20:27)
[2017-08-21] MEDS ORDERED: Central Total Parenteral Nutrition Bag SCH (09:00)
--- NOTE | 2017-08-21 09:00 | PCM.PN ---
- General Info Date of Service: 08/21/17 Functional Status: Reports: Pain Controlled - Review of Systems General: Reports: Weakness Gastrointestinal: Reports: Abdominal Pain (mild) Systems Review Comment:: no acute events overnight. Headache is a little better today. No fevers. We were able to be slightly positive with her fluid balance yesterday and her creatinine has improved to 1.5 today. No complaints of shortness of breath. Abdominal pain is well-controlled. - Patient Data Vitals - Most Recent: Last Vital Signs Temp 36.3 C 08/21/17 08:00 Pulse 96 08/21/17 06:05 Resp 25 H 08/21/17 08:00 BP 135/59 L 08/21/17 08:00 Pulse Ox 99 08/21/17 08:00 Weight - Most Recent: 87.634 kg I&O - Last 24 Hours: Intake & Output 08/20/17 08/21/17 08/21/17 22:59 06:59 14:59 Intake Total 3681 2733 Output Total 2220 2300 350 Balance 1461 433 -350 Lab Results Last 24 Hours: Laboratory Results - last 24 hr 08/21/17 08/21/17 Range/Units 04:20 04:20 WBC 12.0 H (4.5-11.0) K/uL RBC 3.26 L (3.30-5.50) M/uL Hgb 9.5 L (12.0-15.0) g/dL Hct 28.9 L (36.0-48.0) % MCV 89 (80-98) fL MCH 29 (27-31) pg MCHC 33 (32-36) % Plt Count 680 H (150-400) K/uL Sodium 143 (140-148) mmol/L Potassium 3.9 (3.6-5.2) mmol/L Chloride 108 (100-108) mmol/L Carbon Dioxide 23 (21-32) mmol/L Anion Gap 11.7 (5.0-14.0) mmol/L BUN 30 H (7-18) mg/dL Creatinine 1.5 H (0.6-1.0) mg/dL Est Cr Clr Drug Dosing 35.83 mL/min Estimated GFR (MDRD) 35 L (>60) Glucose 139 H (74-106) mg/dL Calcium 9.5 (8.5-10.1) mg/dL Philippe Results Last 24 Hours: Microbiology 08/18/17 16:28 Gram Stain - Final Catheter Site - Intravenous Catheter Wound Culture - Preliminary NO GROWTH AFTER 2 DAYS Anaerobic Culture - Preliminary NO GROWTH AFTER 2 DAYS 08/16/17 22:16 Aerobic Blood Culture - Preliminary Blood - Arm, Left NO GROWTH AFTER 4 DAYS Anaerobic Blood Culture - Preliminary NO GROWTH AFTER 4 DAYS 08/16/17 21:55 Aerobic Blood Culture - Preliminary Blood - Arm, Left NO GROWTH AFTER 4 DAYS Anaerobic Blood Culture - Preliminary NO GROWTH AFTER 4 DAYS 08/17/17 20:20 Aerobic Blood Culture - Preliminary Blood - Arm, Right NO GROWTH AFTER 3 DAYS Anaerobic Blood Culture - Preliminary NO GROWTH AFTER 3 DAYS 08/17/17 20:15 Aerobic Blood Culture - Preliminary Blood - Arm, Right NO GROWTH AFTER 3 DAYS Anaerobic Blood Culture - Preliminary NO GROWTH AFTER 3 DAYS 08/17/17 22:13 Urine Culture - Final Urine, Louie Cath (Indwelling) NO GROWTH AFTER 2 DAYS Med Orders - Current: Current Medications Acetaminophen (Tylenol) 650 mg RECTAL Q4H PRN PRN Reason: Fever Last Admin: 08/17/17 20:58 Dose: 650 mg Benzocaine/Menthol (Cepacol Sore Throat) 1 lozenge MUCMEM Q1H PRN PRN Reason: Sore Throat Dimethicone/Zinc Oxide (Rash Relief-Zinc Oxide Elbert) 0 gm TOP ASDIRECTED PRN PRN Reason: Rash Last Admin: 08/18/17 14:30 Dose: 2 sprays Diphenhydramine HCl (Benadryl) 50 mg IVPUSH Q4H PRN PRN Reason: Itching Last Admin: 08/16/17 21:14 Dose: 50 mg Enoxaparin Sodium (Lovenox) 90 mg SUBCUT Q12H [facility] Last Admin: 08/21/17 08:55 Dose: 90 mg Fentanyl Citrate (Fentanyl In Ns 20 Mcg/Ml 30 Ml [employer]) 0 mcg IV ASDIRECTED PRN; Protocol PRN Reason: PAIN Last Admin: 08/18/17 14:01 Dose: 600 mcg Fluticasone Propionate (Flonase) 0 gm NASBOTH DAILY PRN PRN Reason: Congestion Heparin Sodium (Porcine) (Heparin Lock Flush 100 Units/Ml) 500 units FLUSH 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 Last Admin: 08/20/17 22:16 Dose: 500 units Hydrocortisone Sodium Succinate (Solu-Cortef) 25 mg IVPUSH Q8H [facility] Last Admin: 08/21/17 06:06 Dose: 25 mg Hydroxyzine HCl (Vistaril) 50 - 100 mg IM Q4H PRN PRN Reason: Nausea Last Admin: 08/18/17 16:42 Dose: 100 mg Meropenem 1 gm/ Sodium (Chloride) 50 mls @ 100 mls/hr IV Q12H [facility] Last Admin: 08/20/17 22:09 Dose: 100 mls/hr Levofloxacin/Dextrose 750 mg/ (Premix) 150 mls @ 100 mls/hr IV Q24H [facility] Last Admin: 08/20/17 20:57 Dose: 100 mls/hr Multivitamins/Minerals 10 ml/Chromium/Copper/Manganese/Seleni/Zn 1 ml/ Amino Ac/ Electrol/Dextrose/Calcium 1,011 mls @ 76 mls/hr IV .BY DURATION [facility] Last Admin: 08/20/17 12:46 Dose: 76 mls/hr Amino Ac/Electrol/Dextrose/Calcium (Clinimix E 15) 1,000 mls @ 76 mls/hr IV .BY DURATION [facility] Last Admin: 08/21/17 01:23 Dose: 76 mls/hr Lactated Ringer's (Ringers, Lactated) 1,000 mls @ 200 mls/hr IV ASDIRECTED [facility] Last Admin: 08/21/17 06:07 Dose: 200 mls/hr Lorazepam (Ativan) 0.5 - 1.5 mg IVPUSH Q6H PRN PRN Reason: Anxiety Last Admin: 08/21/17 08:54 Dose: 1 mg Metoprolol Tartrate (Lopressor) 2.5 mg IVPUSH Q4H [facility] Last Admin: 08/21/17 06:05 Dose: 2.5 mg Naloxone HCl (Narcan) 0.1 mg IV ASDIRECTED PRN PRN Reason: RESP. DEPRESSION Non-Formulary Medication (Total Parenteral Nutrition, Central) 1,000 ml .XX .Continue Order [facility] PRN Reason: Protocol Ondansetron HCl (Zofran) 4 mg IVPUSH Q4H PRN PRN Reason: Nausea/Vomiting Last Admin: 08/13/17 13:44 Dose: 4 mg Pantoprazole Sodium (Protonix Iv) 40 mg IVPUSH Q24H [facility] Last Admin: 08/20/17 16:49 Dose: 40 mg Discontinued Medications Bacitracin (Bacitracin Oint 1 Gm) 1 dose TOP ONETIME ONE Stop: 08/14/17 10:46 Last Admin: 08/14/17 11:00 Dose: 1 dose Bupivacaine HCl (Marcaine 0.5%) Confirm Administered Dose 50 ml .ROUTE .STK-MED ONE Stop: 08/18/17 13:39 Dexamethasone (Dexamethasone) Confirm Administered Dose 4 mg .ROUTE .STK-MED ONE Stop: 08/10/17 10:37 Dexamethasone (Dexamethasone) Confirm Administered Dose 4 mg .ROUTE .STK-MED ONE Stop: 08/11/17 00:15 Dexamethasone (Dexamethasone) Confirm Administered Dose 4 mg .ROUTE .STK-MED ONE Stop: 08/12/17 15:54 Dexamethasone (Dexamethasone) Confirm Administered Dose 4 mg .ROUTE .STK-MED ONE Stop: 08/15/17 07:28 Enoxaparin Sodium (Lovenox) 40 mg SUBCUT DAILY [facility] Last Admin: 08/15/17 14:10 Dose: 40 mg Enoxaparin Sodium (Lovenox) 90 mg SUBCUT DAILY [facility] Fentanyl (Sublimaze) Confirm Administered Dose 250 mcg .ROUTE .STK-MED ONE Stop: 08/10/17 10:37 Fentanyl (Sublimaze) Confirm Administered Dose 250 mcg .ROUTE .STK-MED ONE Stop: 08/10/17 13:06 Fentanyl (Sublimaze) Confirm Administered Dose 250 mcg .ROUTE .ST-MED ONE Stop: 08/11/17 00:15 Fentanyl (Sublimaze) Confirm Administered Dose 250 mcg .ROUTE .STK-MED ONE Stop: 08/12/17 15:53 Fentanyl (Sublimaze) Confirm Administered Dose 250 mcg .ROUTE .STK-MED ONE Stop: 08/15/17 07:29 Fentanyl (Sublimaze) Confirm Administered Dose 100 mcg .ROUTE .STK-MED ONE Stop: 08/18/17 14:54 Fentanyl (Sublimaze) Confirm Administered Dose 100 mcg .ROUTE .STK-MED ONE Stop: 08/20/17 07:32 Fentanyl Citrate (Fentanyl In Ns 20 Mcg/Ml 30 Ml [employer] Engine [employer]) Confirm Administered Dose 600 mcg .ROUTE .STK-MED ONE Stop: 08/10/17 15:41 Last Admin: 08/10/17 16:35 Dose: 10 mcg Glycopyrrolate (Robinul) Confirm Administered Dose 1 mg .ROUTE .STK-MED ONE Stop: 08/10/17 10:37 Glycopyrrolate (Robinul) Confirm Administered Dose 1 mg .ROUTE .STK-MED ONE Stop: 08/11/17 00:15 Glycopyrrolate (Robinul) Confirm Administered Dose 1 mg .ROUTE .STK-MED ONE Stop: 08/12/17 15:54 Glycopyrrolate (Robinul) Confirm Administered Dose 1 mg .ROUTE .STK-MED ONE Stop: 08/15/17 07:28 Heparin Sodium (Porcine) (Heparin Lock Flush 100 Units/Ml) Confirm Administered Dose 1,000 units .ROUTE .ST-MED ONE Stop: 08/10/17 10:55 Last Admin: 08/10/17 12:15 Dose: 1,000 units Heparin Sodium (Porcine) (Heparin Lock Flush 100 Units/Ml) Confirm Administered Dose 500 units .ROUTE .[facility]-MED ONE Stop: 08/12/17 15:46 Last Admin: 08/12/17 16:13 Dose: Not Given Heparin Sodium (Porcine) (Heparin Lock Flush 100 Units/Ml) Confirm Administered Dose 1,000 units .ROUTE .STK-MED ONE Stop: 08/18/17 15:21 Heparin Sodium (Porcine) (Heparin Lock Flush 100 Units/Ml) Confirm Administered Dose 500 units .ROUTE .ST-MED ONE Stop: 08/18/17 15:25 Hydromorphone HCl (Dilaudid) 0.5 mg IVPUSH ONETIME ONE Stop: 08/20/17 10:31 Last Admin: 08/20/17 16:01 Dose: Not Given Sodium Chloride (Normal Saline) 1,000 mls @ 100 mls/hr IV ASDIRECTED [facility] Last Admin: 08/11/17 09:53 Dose: 100 mls/hr Piperacillin/Tazobactam/ (Dextrose 4.5 gm/ Premix) 100 mls @ 200 mls/hr IV ONETIME ONE Stop: 08/10/17 11:29 Last Admin: 08/10/17 11:09 Dose: 200 mls/hr Lactated Ringer's (Ringers, Lactated) Confirm Administered Dose 1,000 mls @ as directed .ROUTE .[facility] ONE Stop: 08/10/17 15:24 Lactated Ringer's (Ringers, Lactated) Confirm Administered Dose 1,000 mls @ as directed .ROUTE .K-MED ONE Stop: 08/10/17 15:24 Piperacillin Sod/Tazobactam (Sod 4.5 gm/ Sodium Chloride) 100 mls @ 200 mls/hr IV Q8H [facility] Last Admin: 08/11/17 04:06 Dose: 200 mls/hr Sodium Chloride (Normal Saline) 1,000 mls @ 500 mls/hr IV ASDIRECTED [facility] Last Infusion: 08/10/17 20:36 Dose: 0 mls/hr Piperacillin/Tazobactam/ (Dextrose 4.5 gm/ Premix) 100 mls @ 200 mls/hr IV Q8H [facility] Last Admin: 08/15/17 03:39 Dose: 200 mls/hr Sodium Chloride (Normal Saline) 1,000 mls @ 125 mls/hr IV ASDIRECTED [facility] Last Admin: 08/12/17 20:25 Dose: 125 mls/hr Vancomycin HCl 1 gm/ Sodium (Chloride) 250 mls @ 150 mls/hr IV ONETIME ONE Stop: 08/11/17 21:37 Last Admin: 08/11/17 20:27 Dose: Not Given Vancomycin HCl 1.5 gm/ Sodium (Chloride) 250 mls @ 166.667 mls/hr IV Q12H [facility] Last Admin: 08/13/17 10:19 Dose: Not Given Potassium Chloride 20 meq/Lidocaine HCl 2 ml/ Sodium Chloride 112 mls @ 56 mls/ hr IV Q2H [facility] Stop: 08/12/17 14:59 Last Admin: 08/12/17 13:17 Dose: 56 mls/hr Potassium Chloride 20 meq/ (Premix) 100 mls @ 50 mls/hr IV ONETIME ONE Stop: 08/12/17 17:59 Last Admin: 08/12/17 15:38 Dose: 50 mls/hr Vancomycin HCl 1.6 gm/ Sodium (Chloride) 250 mls @ 250 mls/hr IV Q12H [facility] Last Admin: 08/14/17 21:59 Dose: 250 mls/hr Potassium Chloride/Dextrose/Sod Cl (D5 1/2 Ns W/ 20 Meq/L Kcl) 1,000 mls @ 25 mls/hr IV ASDIRECTED [facility] Last Admin: 08/15/17 09:57 Dose: 25 mls/hr Multivitamins/Minerals 10 ml/Chromium/Copper/Manganese/Seleni/Zn 1 ml/ Amino Ac/ Electrol/Dextrose/Calcium 1,011 mls @ 76 mls/hr IV .BY DURATION [facility] Stop: 08/14/17 14:30 Last Admin: 08/13/17 13:11 Dose: 76 mls/hr Amino Ac/Electrol/Dextrose/Calcium (Clinimix E 5/15) 1,000 mls @ 76 mls/hr IV .BY DURATION [facility] Stop: 08/14/17 14:30 Last Admin: 08/14/17 02:18 Dose: 76 mls/hr Fat Emulsion Intravenous (Intralipid 20%) 100 mls @ 8.5 mls/hr IV ONETIME ONE Stop: 08/14/17 03:45 Last Admin: 08/13/17 15:54 Dose: 8.5 mls/hr Multivitamins/Minerals 10 ml/Chromium/Copper/Manganese/Seleni/Zn 1 ml/ Amino Ac/ Electrol/Dextrose/Calcium 1,011 mls @ 76 mls/hr IV .BY DURATION [facility] Stop: 08/16/17 15:55 Last Admin: 08/15/17 16:56 Dose: 76 mls/hr Amino Ac/Electrol/Dextrose/Calcium (Clinimix E 5/15) 1,000 mls @ 76 mls/hr IV .BY DURATION [facility] Stop: 08/16/17 15:55 Last Admin: 08/16/17 09:26 Dose: Not Given Fat Emulsion Intravenous (Intralipid 20%) 100 mls @ 8.3 mls/hr IV ONETIME ONE Stop: 08/15/17 04:02 Last Admin: 08/14/17 15:32 Dose: 8.3 mls/hr Sodium Chloride (Normal Saline) 1,000 mls @ 999 mls/hr IV .[facility] ONE Stop: 08/15/17 08:51 Last Admin: 08/15/17 07:55 Dose: 999 mls/hr Piperacillin/Tazobactam/ (Dextrose 2.25 gm/ Premix) 50 mls @ 100 mls/hr IV Q6H [facility] Last Admin: 12/03/17 18:21 Dose: 100 mls/hr Fat Emulsion Intravenous (Intralipid 20%) 100 mls @ 8.5 mls/hr IV ONETIME ONE Stop: 08/16/17 05:45 Last Admin: 08/15/17 17:45 Dose: 8.5 mls/hr Sodium Chloride (Normal Saline) 1,000 mls @ 250 mls/hr IV ASDIRECTED [facility] Stop: 08/16/17 00:46 Last Admin: 08/16/17 00:09 Dose: 250 mls/hr Sodium Chloride (Normal Saline) 1,000 mls @ 125 mls/hr IV ASDIRECTED [facility] Last Admin: 08/16/17 06:50 Dose: 125 mls/hr Potassium Chloride 40 meq/ (Premix) 100 mls @ 25 mls/hr IV ONETIME ONE Stop: 08/15/17 22:48 Last Admin: 08/15/17 19:29 Dose: 25 mls/hr Sodium Chloride (Normal Saline) 1,000 mls @ 50 mls/hr IV ASDIRECTED [facility] Last Admin: 08/17/17 00:14 Dose: 50 mls/hr Multivitamins/Minerals 10 ml/Chromium/Copper/Manganese/Seleni/Zn 1 ml/ Amino Ac/ Electrol/Dextrose/Calcium 1,011 mls @ 76 mls/hr IV .BY DURATION [facility] Stop: 08/17/17 17:00 Last Admin: 08/16/17 15:41 Dose: 76 mls/hr Amino Ac/Electrol/Dextrose/Calcium (Clinimix E /15) 1,000 mls @ 76 mls/hr IV .BY DURATION [facility] Stop: 08/17/17 17:00 Last Admin: 08/17/17 05:13 Dose: 76 mls/hr Fat Emulsion Intravenous (Intralipid 20%) 100 mls @ 8.3 mls/hr IV ONETIME ONE Stop: 08/17/17 04:02 Last Admin: 08/16/17 15:42 Dose: 8.3 mls/hr Vancomycin HCl 1.5 gm/ Sodium (Chloride) 250 mls @ 167 mls/hr IV ONETIME ONE Stop: 08/16/17 17:29 Last Admin: 08/16/17 15:11 Dose: 167 mls/hr Potassium Chloride 40 meq/ (Premix) 100 mls @ 25 mls/hr IV ONETIME ONE Stop: 08/17/17 12:29 Last Admin: 08/17/17 08:16 Dose: 25 mls/hr Potassium Chloride/Sodium Chloride (Normal Saline With 20 Meq Kcl) 1,000 mls @ 125 mls/hr IV ASDIRECTED [facility] Last Admin: 08/20/17 06:25 Dose: 125 mls/hr Sodium Chloride (Normal Saline) 1,000 mls @ 250 mls/hr IV ASDIRECTED [facility] Stop: 08/17/17 16:01 Last Admin: 08/17/17 13:55 Dose: 250 mls/hr Fat Emulsion Intravenous (Intralipid 20%) 100 mls @ 8.3 mls/hr IV ONETIME ONE Stop: 08/18/17 04:02 Last Admin: 08/17/17 16:24 Dose: 8.3 mls/hr Multivitamins/Minerals 10 ml/Chromium/Copper/Manganese/Seleni/Zn 1 ml/ Amino Ac/ Electrol/Dextrose/Calcium 1,011 mls @ 76 mls/hr IV .BY DURATION [facility] Last Admin: 08/18/17 20:46 Dose: 76 mls/hr Amino Ac/Electrol/Dextrose/Calcium (Clinimix E 5/20) 1,000 mls @ 76 mls/hr IV .BY DURATION [facility] Last Admin: 08/18/17 07:29 Dose: 76 mls/hr Albumin Human (Albumin 25%) 25 gm in 100 mls @ 25 mls/hr IV DAILY [facility] Stop: 08/20/17 12:59 Last Admin: 08/20/17 09:53 Dose: 25 mls/hr Albumin Human (Albumin 25%) 25 gm in 100 mls @ 25 mls/hr IV Q24H [facility] Stop: 08/20/17 16:59 Last Admin: 08/20/17 13:17 Dose: 25 mls/hr Potassium Acetate 40 meq/ (Sodium Chloride) 120 mls @ 30 mls/hr IV ONETIME ONE Stop: 08/17/17 13:59 Last Admin: 08/17/17 09:45 Dose: 30 mls/hr Potassium Acetate 20 meq/ (Sodium Chloride) 110 mls @ 55 mls/hr IV ONETIME ONE Stop: 08/17/17 16:59 Last Admin: 08/17/17 14:37 Dose: 55 mls/hr Linezolid 600 mg/ Premix 300 mls @ 300 mls/hr IV Q12H [facility] Last Admin: 08/19/17 20:02 Dose: 300 mls/hr Levofloxacin/Dextrose 750 mg/ (Premix) 150 mls @ 100 mls/hr IV Q48H [facility] Last Admin: 08/17/17 21:25 Dose: Not Given Lidocaine HCl (Xylocaine-Mpf 1%) Confirm Administered Dose 2 mls @ as directed .ROUTE .STK-MED ONE Stop: 08/18/17 15:00 Sodium Chloride (Normal Saline) Confirm Administered Dose 500 mls @ as directed .ROUTE .STK-MED ONE Stop: 08/18/17 15:31 Fat Emulsion Intravenous (Intralipid 20%) 100 mls @ 8.5 mls/hr IV ONETIME ONE Stop: 08/20/17 05:45 Last Admin: 08/19/17 17:14 Dose: 8.5 mls/hr Lactated Ringer's (Ringers, Lactated) 1,000 mls @ 200 mls/hr IV ASDIRECTED [facility] Stop: 08/19/17 15:46 Lactated Ringer's (Ringers, Lactated) Confirm Administered Dose 1,000 mls @ as directed .ROUTE .STK-MED ONE Stop: 08/20/17 07:42 Fat Emulsion Intravenous (Intralipid 20%) 100 mls @ 8.5 mls/hr IV ONETIME ONE Stop: 08/21/17 05:45 Last Admin: 08/20/17 17:20 Dose: 8.5 mls/hr Ketamine HCl (Ketalar) Confirm Administered Dose 500 mg .ROUTE .STK-MED ONE Stop: 08/11/17 00:16 Ketamine HCl (Ketalar) Confirm Administered Dose 500 mg .ROUTE .STK-MED ONE Stop: 08/15/17 07:29 Ketorolac Tromethamine (Toradol) 15 mg IVPUSH ONETIME ONE Stop: 08/19/17 17:31 Last Admin: 08/19/17 17:25 Dose: 15 mg Lidocaine HCl (Xylocaine 2%) Confirm Administered Dose 100 mg .ROUTE .STK-MED ONE Stop: 08/12/17 15:54 Lidocaine/Epinephrine (Xylocaine 1% With Epinephrine 1:100,000) Confirm Administered Dose 50 ml .ROUTE .STK-MED ONE Stop: 08/12/17 11:51 Lidocaine/Epinephrine (Xylocaine 1% With Epinephrine 1:100,000) Confirm Administered Dose 50 ml .ROUTE .STK-MED ONE Stop: 08/18/17 13:39 Lidocaine/Epinephrine (Xylocaine 1% With Epinephrine 1:100,000) Confirm Administered Dose 50 ml .ROUTE .STK-MED ONE Stop: 08/20/17 06:47 Meropenem (Merrem) Confirm Administered Dose 500 mg .ROUTE .STK-MED ONE Stop: 08/10/17 14:06 Last Admin: 08/10/17 14:14 Dose: 500 mg Midazolam HCl (Versed 1 Mg/Ml) Confirm Administered Dose 2 mg .ROUTE .STK-MED ONE Stop: 08/15/17 07:29 Midazolam HCl (Versed 1 Mg/Ml) Confirm Administered Dose 2 mg .ROUTE .STK-MED ONE Stop: 08/18/17 14:54 Midazolam HCl (Versed 1 Mg/Ml) Confirm Administered Dose 2 mg .ROUTE .STK-MED ONE Stop: 08/20/17 07:32 Neostigmine Methylsulfate (Neostigmine) Confirm Administered Dose 5 mg .ROUTE .STK-MED ONE Stop: 08/10/17 10:37 Neostigmine Methylsulfate (Neostigmine) Confirm Administered Dose 5 mg .ROUTE .STK-MED ONE Stop: 08/11/17 00:15 Neostigmine Methylsulfate (Neostigmine) Confirm Administered Dose 5 mg .ROUTE .STK-MED ONE Stop: 08/12/17 15:54 Neostigmine Methylsulfate (Neostigmine) Confirm Administered Dose 5 mg .ROUTE .STK-MED ONE Stop: 08/15/17 07:28 Check Scopolamine (Patch) 0 each .XX DAILY [facility] Stop: 08/13/17 09:01 Last Admin: 08/13/17 10:08 Dose: Not Given Non-Formulary Medication (Total Parenteral Nutrition, Central) 1,000 ml .XX .Continue Order [facility] PRN Reason: Protocol Stop: 08/18/17 13:00 Non-Formulary Medication (Total Parenteral Nutrition, Central) 1,000 ml .XX .Continue Order [facility] Stop: 08/21/17 06:00 Ondansetron HCl (Zofran) Confirm Administered Dose 4 mg .ROUTE .STK-MED ONE Stop: 08/10/17 10:37 Ondansetron HCl (Zofran) Confirm Administered Dose 8 mg .ROUTE .STK-MED ONE Stop: 08/10/17 16:21 Ondansetron HCl (Zofran) Confirm Administered Dose 4 mg .ROUTE .STK-MED ONE Stop: 08/11/17 00:15 Ondansetron HCl (Zofran) Confirm Administered Dose 4 mg .ROUTE .STK-MED ONE Stop: 08/12/17 15:54 Ondansetron HCl (Zofran) Confirm Administered Dose 4 mg .ROUTE .STK-MED ONE Stop: 08/15/17 07:28 Petrolatum (Vaseline) 0 gm TOP ONETIME ONE Stop: 08/20/17 07:31 Last Admin: 08/20/17 09:43 Dose: 1 applic Propofol (Diprivan 20 Ml) Confirm Administered Dose 200 mg .ROUTE .STK-MED ONE Stop: 08/10/17 10:37 Propofol (Diprivan 20 Ml) Confirm Administered Dose 200 mg .ROUTE .STK-MED ONE Stop: 08/12/17 15:54 Propofol (Diprivan 20 Ml) Confirm Administered Dose 200 mg .ROUTE .STK-MED ONE Stop: 08/15/17 07:28 Propofol (Diprivan 20 Ml) Confirm Administered Dose 200 mg .ROUTE .STK-MED ONE Stop: 08/18/17 14:54 Propofol (Diprivan 20 Ml) Confirm Administered Dose 200 mg .ROUTE .STK-MED ONE Stop: 08/20/17 07:32 Rocuronium Ronco (Zemuron) Confirm Administered Dose 50 mg .ROUTE .STK-MED ONE Stop: 08/10/17 10:37 Rocuronium Ronco (Zemuron) Confirm Administered Dose 50 mg .ROUTE .STK-MED ONE Stop: 08/10/17 13:50 Rocuronium Ronco (Zemuron) Confirm Administered Dose 50 mg .ROUTE .STK-MED ONE Stop: 08/11/17 00:15 Rocuronium Ronco (Zemuron) Confirm Administered Dose 50 mg .ROUTE .STK-MED ONE Stop: 08/12/17 15:54 Rocuronium Ronco (Zemuron) Confirm Administered Dose 50 mg .ROUTE .STK-MED ONE Stop: 08/15/17 07:28 Scopolamine (Transderm-Scop) 1.5 mg TOP ONETIME ONE Stop: 08/10/17 16:20 Last Admin: 08/10/17 17:23 Dose: 1.5 mg Succinylcholine Chloride (Quelicin) Confirm Administered Dose 200 mg .ROUTE .STK -MED ONE Stop: 08/10/17 10:37 Succinylcholine Chloride (Quelicin) Confirm Administered Dose 200 mg .ROUTE .STK -MED ONE Stop: 08/11/17 00:15 Succinylcholine Chloride (Quelicin) Confirm Administered Dose 200 mg .ROUTE .STK -MED ONE Stop: 08/12/17 15:54 Succinylcholine Chloride (Quelicin) Confirm Administered Dose 200 mg .ROUTE .STK -MED ONE Stop: 08/15/17 07:28 Vancomycin HCl (Vancomycin) 1 gm IV .PHARMACY TO DOSE [facility] Stop: 08/12/17 09:00 - Exam Quality Assessment: No: Supplemental Oxygen General: Alert, Oriented, Cooperative, No Acute Distress Neck: Supple Lungs: Normal Respiratory Effort GI/Abdominal Exam: No Distention Extremities: No Pedal Edema Psy/Mental Status: Alert, Normal Affect - Problem List Review Problem List Initiated/Reviewed/Updated: Yes - My Orders Last 24 Hours: My Active Orders 08/20/17 08:15 Lactated Ringers [Ringers, Lactated] 1,000 ml IV ASDIRECTED 08/20/17 14:00 Hydrocortisone Sod Succinate [Solu-CORTEF] 25 mg IVPUSH Q8H 08/21/17 09:00 Central TPN [Total Parenteral Nutrition, Central] 1,000 ml .XX .Continue Order 08/22/17 05:00 CBC W/O DIFF,HEMOGRAM [HEME] Timed (1) COMPREHENSIVE METABOLIC PN,CMP [CHEM] Timed MAGNESIUM [CHEM] Timed PHOSPHORUS [CHEM] Timed - Plan Plan:: ASSESSMENT AND RECOMMENDATIONS FEVER - no strong evidence for acute infection, cultures still negative. Suspect inflammation related to the fistula. Tolerating current antibiotics. 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 Currently nothing by mouth and on TPN. -Postoperative cares per Dr. Keyes -Continue TPN ACUTE KIDNEY INJURY - no obvious cause for fairly high volume diuresis each day. patient did have positive fluid balance yesterday and kidney function has been improving. -LR at 185 ml/hr -TPN as above -Additional Boluses as indicated based on intake and output balance -Continue to closely monitor urine output and renal function HISTORY OF DEEP VEIN THROMBOSIS AND PULMONARY EMBOLISM - currently on systemic anticoagulation with enoxaparin. -Enoxaparin 90 mg subcutaneous every 12 hours -Plan to restart Xarelto when she is able to take oral medications TYPE 2 DIABETES MELLITUS - blood sugars have been well controlled with the addition of insulin to the TPN. -Continue insulin in TPN HYPERTENSION - blood pressures have been well-controlled. -Metoprolol 2.5 mg IV every 4 hours -Transition to oral medications when able Kel Tabor MD
[2017-08-21] MEDS: hydrOXYzine HCl 100 MG/2 ML SDV IM PRN (11:38)
--- NOTE | 2017-08-21 12:34 | PN ---
DATE OF SERVICE: 08/21/2017 SUBJECTIVE: The patient continues to improve today, both subjectively and objectively. Pain is controlled. No nausea, vomiting, shortness of breath, or chest pain. OBJECTIVE: VITAL SIGNS: Temperature 97.3, blood pressure 135/59, pulse 99, respirations 25, 99% on room air. CARDIOVASCULAR: Regular rhythm and rate. RESPIRATORY: Lungs clear to consultation bilaterally. ABDOMEN: Wound VAC intact. No evidence of abnormality. ASSESSMENT: Fistula. PLAN: We will continue working on activity. We will take the patient back to the operating room for dressing change. However, the patient continues to improve and we will involve the granulation pathway to continue. Jhonatan Keyes MD /[id number]
[2017-08-21] MEDS: Dimethicone 20%/Zinc Oxide 25% 56 GM Spray Bottle TOP PRN (12:49)
[2017-08-21] MEDS: Pantoprazole 40 MG Vial IVPUSH SCH (16:05)
[2017-08-21] MEDS: diphenhydrAMINE 50 MG/ML SDV IVPUSH PRN (16:59)
[2017-08-21] MEDS: Levofloxacin/Dextrose 5%-Water 750 MG in Premix Bag 1 BAG IV SCH (20:26)
[2017-08-22] MEDS: diphenhydrAMINE 50 MG/ML SDV IVPUSH PRN ×2 (01:01→14:42)
[2017-08-22] MEDS: Lactated Ringers 1,000 ML IV SCH ×5 (01:02→20:25)
[2017-08-22] MEDS: Metoprolol Tartrate 5 MG/5 ML SDV IVPUSH SCH ×6 (02:04→21:45)
[2017-08-22] MEDS: 1: AA 5%/Calcium/D15W/Lytes 1,000 ML with MVI, Adult with Vitamin K 10 ML, Chromium/Copp IV SCH ×6 (03:36→17:34)
[2017-08-22] MEDS: Hydrocortisone Sodium Succinate 100 MG/2 ML SDV IVPUSH SCH ×3 (05:54→21:44)
[2017-08-22] MEDS: Enoxaparin 100 MG/1 ML Syringe SUBCUT SCH ×2 (09:58→21:44)
[2017-08-22] MEDS: LORazepam 2 MG/ML MDV IVPUSH PRN ×3 (10:30→22:52)
[2017-08-22] MEDS ORDERED: fentaNYL 100 MCG/2 ML SDV ONE (10:59)
[2017-08-22] MEDS ORDERED: Midazolam 1 MG/ML 2 ML SDV ONE (10:59)
[2017-08-22] MEDS ORDERED: Propofol 200 MG/20 ML SDV ONE (10:59)
--- NOTE | 2017-08-22 15:44 | PCM.PN ---
- General Info Date of Service: 08/22/17 Functional Status: Reports: Pain Controlled - Review of Systems General: Reports: Weakness Gastrointestinal: Reports: Abdominal Pain Systems Review Comment:: Patient had difficulty with her wound VAC overnight and had significant abdominal pain after bile leaked and soiled part of her abdominal wall. Her Louie catheter had been removed but unfortunately had to be reinserted because of frequent urination complicated by difficulty maintaining wound vacuum integrity and severe pain. She has not had any fevers. Cultures are still negative. Blood pressures and blood sugars have been stable. Kidney function continues to improve. Intake and output were on the positive side by about 300 mL in the past 24 hours. - Patient Data Vitals - Most Recent: Last Vital Signs Temp 36.4 C 08/22/17 13:41 Pulse 100 08/22/17 14:01 Resp 21 H 08/22/17 15:00 BP 153/72 H 08/22/17 15:00 Pulse Ox 97 08/22/17 15:00 Weight - Most Recent: 85.729 kg I&O - Last 24 Hours: Intake & Output 08/22/17 08/22/17 08/22/17 06:59 14:59 22:59 Intake Total 2398 Output Total 2525 1625 Balance -127 -1625 Lab Results Last 24 Hours: Laboratory Results - last 24 hr 08/22/17 08/22/17 Range/Units 04:30 04:30 WBC 12.4 H (4.5-11.0) K/uL RBC 3.47 (3.30-5.50) M/uL Hgb 10.0 L (12.0-15.0) g/dL Hct 30.5 L (36.0-48.0) % MCV 88 (80-98) fL MCH 29 (27-31) pg MCHC 33 (32-36) % Plt Count 728 H (150-400) K/uL Sodium 143 (140-148) mmol/L Potassium 3.5 L (3.6-5.2) mmol/L Chloride 108 (100-108) mmol/L Carbon Dioxide 26 (21-32) mmol/L Anion Gap 12.5 (5.0-14.0) mmol/L BUN 28 H (7-18) mg/dL Creatinine 1.3 H (0.6-1.0) mg/dL Est Cr Clr Drug Dosing 41.34 mL/min Estimated GFR (MDRD) 42 L (>60) Glucose 122 H (74-106) mg/dL Calcium 9.3 (8.5-10.1) mg/dL Phosphorus 4.1 (2.5-4.9) mg/dL Magnesium 1.9 (1.8-2.4) mg/dL Total Bilirubin 0.2 (0.2-1.0) mg/dL AST 14 L (15-37) U/L ALT 14 (12-78) U/L Alkaline Phosphatase 139 H (46-116) U/L Total Protein 6.3 L (6.4-8.2) g/dL Albumin 2.5 L (3.4-5.0) g/dL Globulin 3.8 H (2.3-3.5) g/dL Albumin/Globulin Ratio 0.7 L (1.2-2.2) Philippe Results Last 24 Hours: Microbiology 08/18/17 16:28 Gram Stain - Final Catheter Site - Intravenous Catheter Wound Culture - Final NO GROWTH AFTER 3 DAYS Anaerobic Culture - Final NO GROWTH AFTER 3 DAYS 08/16/17 22:16 Aerobic Blood Culture - Final Blood - Arm, Left NO GROWTH AFTER 5 DAYS Anaerobic Blood Culture - Final NO GROWTH AFTER 5 DAYS 08/16/17 21:55 Aerobic Blood Culture - Final Blood - Arm, Left NO GROWTH AFTER 5 DAYS Anaerobic Blood Culture - Final NO GROWTH AFTER 5 DAYS 08/17/17 20:20 Aerobic Blood Culture - Preliminary Blood - Arm, Right NO GROWTH AFTER 4 DAYS Anaerobic Blood Culture - Preliminary NO GROWTH AFTER 4 DAYS 08/17/17 20:15 Aerobic Blood Culture - Preliminary Blood - Arm, Right NO GROWTH AFTER 4 DAYS Anaerobic Blood Culture - Preliminary NO GROWTH AFTER 4 DAYS Med Orders - Current: Current Medications Acetaminophen (Tylenol) 650 mg RECTAL Q4H PRN PRN Reason: Fever Last Admin: 08/17/17 20:58 Dose: 650 mg Benzocaine/Menthol (Cepacol Sore Throat) 1 lozenge MUCMEM Q1H PRN PRN Reason: Sore Throat Dimethicone/Zinc Oxide (Rash Relief-Zinc Oxide [place]) 0 gm TOP ASDIRECTED PRN PRN Reason: Rash Last Admin: 08/21/17 12:49 Dose: 2 sprays Diphenhydramine HCl (Benadryl) 50 mg IVPUSH Q4H PRN PRN Reason: Itching Last Admin: 08/22/17 14:42 Dose: 50 mg Enoxaparin Sodium (Lovenox) 90 mg SUBCUT Q12H [facility] Last Admin: 08/22/17 09:58 Dose: 90 mg Fentanyl Citrate (Fentanyl In Ns 20 Mcg/Ml 30 Ml [employer]) 0 mcg IV ASDIRECTED PRN; Protocol PRN Reason: PAIN Last Admin: 08/18/17 14:01 Dose: 600 mcg Fluticasone Propionate (Flonase) 0 gm NASBOTH DAILY PRN PRN Reason: Congestion Heparin Sodium (Porcine) (Heparin Lock Flush 100 Units/Ml) 500 units FLUSH 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 Last Admin: 08/20/17 22:16 Dose: 500 units Hydrocortisone Sodium Succinate (Solu-Cortef) 25 mg IVPUSH Q8H [facility] Last Admin: 08/22/17 14:04 Dose: 25 mg Hydroxyzine HCl (Vistaril) 50 - 100 mg IM Q4H PRN PRN Reason: Nausea Last Admin: 08/21/17 11:38 Dose: 100 mg Meropenem 1 gm/ Sodium (Chloride) 50 mls @ 100 mls/hr IV Q12H [facility] Last Admin: 08/22/17 09:46 Dose: 100 mls/hr Levofloxacin/Dextrose 750 mg/ (Premix) 150 mls @ 100 mls/hr IV Q24H [facility] Last Admin: 08/21/17 20:26 Dose: 100 mls/hr Multivitamins/Minerals 10 ml/Chromium/Copper/Manganese/Seleni/Zn 1 ml/ Amino Ac/ Electrol/Dextrose/Calcium 1,011 mls @ 76 mls/hr IV .BY DURATION [facility] Last Admin: 08/21/17 14:11 Dose: 76 mls/hr Amino Ac/Electrol/Dextrose/Calcium (Clinimix E 5/15) 1,000 mls @ 76 mls/hr IV .BY DURATION [facility] Last Admin: 08/22/17 03:36 Dose: 76 mls/hr Lactated Ringer's (Ringers, Lactated) 1,000 mls @ 185 mls/hr IV ASDIRECTED [facility] Last Admin: 08/22/17 14:58 Dose: 185 mls/hr Fat Emulsion Intravenous (Intralipid 20%) 100 mls @ 8.5 mls/hr IV ONETIME ONE Stop: 08/23/17 05:45 Lorazepam (Ativan) 0.5 - 1.5 mg IVPUSH Q6H PRN PRN Reason: Anxiety Last Admin: 08/22/17 10:30 Dose: 1 mg Metoprolol Tartrate (Lopressor) 2.5 mg IVPUSH Q4H [facility] Last Admin: 08/22/17 14:01 Dose: 2.5 mg Naloxone HCl (Narcan) 0.1 mg IV ASDIRECTED PRN PRN Reason: RESP. DEPRESSION Ondansetron HCl (Zofran) 4 mg IVPUSH Q4H PRN PRN Reason: Nausea/Vomiting Last Admin: 08/13/17 13:44 Dose: 4 mg Pantoprazole Sodium (Protonix Iv) 40 mg IVPUSH Q24H [facility] Last Admin: 08/21/17 16:05 Dose: 40 mg Discontinued Medications Bacitracin (Bacitracin Oint 1 Gm) 1 dose TOP ONETIME ONE Stop: 08/14/17 10:46 Last Admin: 08/14/17 11:00 Dose: 1 dose Bupivacaine HCl (Marcaine 0.5%) Confirm Administered Dose 50 ml .ROUTE .STK-MED ONE Stop: 08/18/17 13:39 Dexamethasone (Dexamethasone) Confirm Administered Dose 4 mg .ROUTE .STK-MED ONE Stop: 08/10/17 10:37 Dexamethasone (Dexamethasone) Confirm Administered Dose 4 mg .ROUTE .STK-MED ONE Stop: 08/11/17 00:15 Dexamethasone (Dexamethasone) Confirm Administered Dose 4 mg .ROUTE .STK-MED ONE Stop: 08/12/17 15:54 Dexamethasone (Dexamethasone) Confirm Administered Dose 4 mg .ROUTE .STK-MED ONE Stop: 08/15/17 07:28 Enoxaparin Sodium (Lovenox) 40 mg SUBCUT DAILY [facility] Last Admin: 08/15/17 14:10 Dose: 40 mg Enoxaparin Sodium (Lovenox) 90 mg SUBCUT DAILY [facility] Fentanyl (Sublimaze) Confirm Administered Dose 250 mcg .ROUTE .STK-MED ONE Stop: 08/10/17 10:37 Fentanyl (Sublimaze) Confirm Administered Dose 250 mcg .ROUTE .STK-MED ONE Stop: 08/10/17 13:06 Fentanyl (Sublimaze) Confirm Administered Dose 250 mcg .ROUTE .STK-MED ONE Stop: 08/11/17 00:15 Fentanyl (Sublimaze) Confirm Administered Dose 250 mcg .ROUTE .STK-MED ONE Stop: 08/12/17 15:53 Fentanyl (Sublimaze) Confirm Administered Dose 250 mcg .ROUTE .STK-MED ONE Stop: 08/15/17 07:29 Fentanyl (Sublimaze) Confirm Administered Dose 100 mcg .ROUTE .STK-MED ONE Stop: 08/18/17 14:54 Fentanyl (Sublimaze) Confirm Administered Dose 100 mcg .ROUTE .STK-MED ONE Stop: 08/20/17 07:32 Fentanyl (Sublimaze) Confirm Administered Dose 100 mcg .ROUTE .STK-MED ONE Stop: 08/22/17 11:00 Fentanyl Citrate (Fentanyl In Ns 20 Mcg/Ml 30 Ml [employer]izer) Confirm Administered Dose 600 mcg .ROUTE .STK-MED ONE Stop: 08/10/17 15:41 Last Admin: 08/10/17 16:35 Dose: 10 mcg Glycopyrrolate (Robinul) Confirm Administered Dose 1 mg .ROUTE .STK-MED ONE Stop: 08/10/17 10:37 Glycopyrrolate (Robinul) Confirm Administered Dose 1 mg .ROUTE .STK-MED ONE Stop: 08/11/17 00:15 Glycopyrrolate (Robinul) Confirm Administered Dose 1 mg .ROUTE .STK-MED ONE Stop: 08/12/17 15:54 Glycopyrrolate (Robinul) Confirm Administered Dose 1 mg .ROUTE .STK-MED ONE Stop: 08/15/17 07:28 Heparin Sodium (Porcine) (Heparin Lock Flush 100 Units/Ml) Confirm Administered Dose 1,000 units .ROUTE .STK-MED ONE Stop: 08/10/17 10:55 Last Admin: 08/10/17 12:15 Dose: 1,000 units Heparin Sodium (Porcine) (Heparin Lock Flush 100 Units/Ml) Confirm Administered Dose 500 units .ROUTE .STK-MED ONE Stop: 08/12/17 15:46 Last Admin: 08/12/17 16:13 Dose: Not Given Heparin Sodium (Porcine) (Heparin Lock Flush 100 Units/Ml) Confirm Administered Dose 1,000 units .ROUTE .STK-MED ONE Stop: 08/18/17 15:21 Heparin Sodium (Porcine) (Heparin Lock Flush 100 Units/Ml) Confirm Administered Dose 500 units .ROUTE .[facility] ONE Stop: 08/18/17 15:25 Hydromorphone HCl (Dilaudid) 0.5 mg IVPUSH ONETIME ONE Stop: 08/20/17 10:31 Last Admin: 08/20/17 16:01 Dose: Not Given Sodium Chloride (Normal Saline) 1,000 mls @ 100 mls/hr IV ASDIRECTED [facility] Last Admin: 08/11/17 09:53 Dose: 100 mls/hr Piperacillin/Tazobactam/ (Dextrose 4.5 gm/ Premix) 100 mls @ 200 mls/hr IV ONETIME ONE Stop: 08/10/17 11:29 Last Admin: 08/10/17 11:09 Dose: 200 mls/hr Lactated Ringer's (Ringers, Lactated) Confirm Administered Dose 1,000 mls @ as directed .ROUTE .[facility] ONE Stop: 08/10/17 15:24 Lactated Ringer's (Ringers, Lactated) Confirm Administered Dose 1,000 mls @ as directed .ROUTE .[facility] ONE Stop: 08/10/17 15:24 Piperacillin Sod/Tazobactam (Sod 4.5 gm/ Sodium Chloride) 100 mls @ 200 mls/hr IV Q8H [facility] Last Admin: 08/11/17 04:06 Dose: 200 mls/hr Sodium Chloride (Normal Saline) 1,000 mls @ 500 mls/hr IV ASDIRECTED [facility] Last Infusion: 08/10/17 20:36 Dose: 0 mls/hr Piperacillin/Tazobactam/ (Dextrose 4.5 gm/ Premix) 100 mls @ 200 mls/hr IV Q8H [facility] Last Admin: 08/15/17 03:39 Dose: 200 mls/hr Sodium Chloride (Normal Saline) 1,000 mls @ 125 mls/hr IV ASDIRECTED [facility] Last Admin: 08/12/17 20:25 Dose: 125 mls/hr Vancomycin HCl 1 gm/ Sodium (Chloride) 250 mls @ 150 mls/hr IV ONETIME ONE Stop: 08/11/17 21:37 Last Admin: 08/11/17 20:27 Dose: Not Given Vancomycin HCl 1.5 gm/ Sodium (Chloride) 250 mls @ 166.667 mls/hr IV Q12H [facility] Last Admin: 08/13/17 10:19 Dose: Not Given Potassium Chloride 20 meq/Lidocaine HCl 2 ml/ Sodium Chloride 112 mls @ 56 mls/ hr IV Q2H [facility] Stop: 08/12/17 14:59 Last Admin: 08/12/17 13:17 Dose: 56 mls/hr Potassium Chloride 20 meq/ (Premix) 100 mls @ 50 mls/hr IV ONETIME ONE Stop: 08/12/17 17:59 Last Admin: 08/12/17 15:38 Dose: 50 mls/hr Vancomycin HCl 1.6 gm/ Sodium (Chloride) 250 mls @ 250 mls/hr IV Q12H [facility] Last Admin: 08/14/17 21:59 Dose: 250 mls/hr Potassium Chloride/Dextrose/Sod Cl (D5 1/2 Ns W/ 20 Meq/L Kcl) 1,000 mls @ 25 mls/hr IV ASDIRECTED [facility] Last Admin: 08/15/17 09:57 Dose: 25 mls/hr Multivitamins/Minerals 10 ml/Chromium/Copper/Manganese/Seleni/Zn 1 ml/ Amino Ac/ Electrol/Dextrose/Calcium 1,011 mls @ 76 mls/hr IV .BY DURATION [facility] Stop: 08/14/17 14:30 Last Admin: 08/13/17 13:11 Dose: 76 mls/hr Amino Ac/Electrol/Dextrose/Calcium (Clinimix E 5/15) 1,000 mls @ 76 mls/hr IV .BY DURATION [facility] Stop: 08/14/17 14:30 Last Admin: 08/14/17 02:18 Dose: 76 mls/hr Fat Emulsion Intravenous (Intralipid 20%) 100 mls @ 8.5 mls/hr IV ONETIME ONE Stop: 08/14/17 03:45 Last Admin: 08/13/17 15:54 Dose: 8.5 mls/hr Multivitamins/Minerals 10 ml/Chromium/Copper/Manganese/Seleni/Zn 1 ml/ Amino Ac/ Electrol/Dextrose/Calcium 1,011 mls @ 76 mls/hr IV .BY DURATION [facility] Stop: 08/16/17 15:55 Last Admin: 08/15/17 16:56 Dose: 76 mls/hr Amino Ac/Electrol/Dextrose/Calcium (Clinimix E 01/27) 1,000 mls @ 76 mls/hr IV .BY DURATION [facility] Stop: 08/16/17 15:55 Last Admin: 08/16/17 09:26 Dose: Not Given Fat Emulsion Intravenous (Intralipid 20%) 100 mls @ 8.3 mls/hr IV ONETIME ONE Stop: 08/15/17 04:02 Last Admin: 08/14/17 15:32 Dose: 8.3 mls/hr Sodium Chloride (Normal Saline) 1,000 mls @ 999 mls/hr IV .[facility] ONE Stop: 08/15/17 08:51 Last Admin: 08/15/17 07:55 Dose: 999 mls/hr Piperacillin/Tazobactam/ (Dextrose 2.25 gm/ Premix) 50 mls @ 100 mls/hr IV Q6H [facility] Last Admin: 08/17/17 18:21 Dose: 100 mls/hr Fat Emulsion Intravenous (Intralipid 20%) 100 mls @ 8.5 mls/hr IV ONETIME ONE Stop: 08/16/17 05:45 Last Admin: 08/15/17 17:45 Dose: 8.5 mls/hr Sodium Chloride (Normal Saline) 1,000 mls @ 250 mls/hr IV ASDIRECTED [facility] Stop: 08/16/17 00:46 Last Admin: 08/16/17 00:09 Dose: 250 mls/hr Sodium Chloride (Normal Saline) 1,000 mls @ 125 mls/hr IV ASDIRECTED [facility] Last Admin: 08/16/17 06:50 Dose: 125 mls/hr Potassium Chloride 40 meq/ (Premix) 100 mls @ 25 mls/hr IV ONETIME ONE Stop: 08/15/17 22:48 Last Admin: 08/15/17 19:29 Dose: 25 mls/hr Sodium Chloride (Normal Saline) 1,000 mls @ 50 mls/hr IV ASDIRECTED [facility] Last Admin: 08/17/17 00:14 Dose: 50 mls/hr Multivitamins/Minerals 10 ml/Chromium/Copper/Manganese/Seleni/Zn 1 ml/ Amino Ac/ Electrol/Dextrose/Calcium 1,011 mls @ 76 mls/hr IV .BY DURATION [facility] Stop: 08/17/17 17:00 Last Admin: 08/16/17 15:41 Dose: 76 mls/hr Amino Ac/Electrol/Dextrose/Calcium (Clinimix E 5/15) 1,000 mls @ 76 mls/hr IV .BY DURATION [facility] Stop: 08/17/17 17:00 Last Admin: 08/17/17 05:13 Dose: 76 mls/hr Fat Emulsion Intravenous (Intralipid 20%) 100 mls @ 8.3 mls/hr IV ONETIME ONE Stop: 08/17/17 04:02 Last Admin: 08/16/17 15:42 Dose: 8.3 mls/hr Vancomycin HCl 1.5 gm/ Sodium (Chloride) 250 mls @ 167 mls/hr IV ONETIME ONE Stop: 08/16/17 17:29 Last Admin: 08/16/17 15:11 Dose: 167 mls/hr Potassium Chloride 40 meq/ (Premix) 100 mls @ 25 mls/hr IV ONETIME ONE Stop: 08/17/17 12:29 Last Admin: 08/17/17 08:16 Dose: 25 mls/hr Potassium Chloride/Sodium Chloride (Normal Saline With 20 Meq Kcl) 1,000 mls @ 125 mls/hr IV ASDIRECTED [facility] Last Admin: 08/20/17 06:25 Dose: 125 mls/hr Sodium Chloride (Normal Saline) 1,000 mls @ 250 mls/hr IV ASDIRECTED [facility] Stop: 08/17/17 16:01 Last Admin: 08/17/17 13:55 Dose: 250 mls/hr Fat Emulsion Intravenous (Intralipid 20%) 100 mls @ 8.3 mls/hr IV ONETIME ONE Stop: 08/18/17 04:02 Last Admin: 08/17/17 16:24 Dose: 8.3 mls/hr Multivitamins/Minerals 10 ml/Chromium/Copper/Manganese/Seleni/Zn 1 ml/ Amino Ac/ Electrol/Dextrose/Calcium 1,011 mls @ 76 mls/hr IV .BY DURATION [facility] Last Admin: 08/18/17 20:46 Dose: 76 mls/hr Amino Ac/Electrol/Dextrose/Calcium (Clinimix E 5/20) 1,000 mls @ 76 mls/hr IV .BY DURATION [facility] Last Admin: 08/18/17 07:29 Dose: 76 mls/hr Albumin Human (Albumin 25%) 25 gm in 100 mls @ 25 mls/hr IV DAILY [facility] Stop: 08/20/17 12:59 Last Admin: 08/20/17 09:53 Dose: 25 mls/hr Albumin Human (Albumin 25%) 25 gm in 100 mls @ 25 mls/hr IV Q24H [facility] Stop: 08/20/17 16:59 Last Admin: 08/20/17 13:17 Dose: 25 mls/hr Potassium Acetate 40 meq/ (Sodium Chloride) 120 mls @ 30 mls/hr IV ONETIME ONE Stop: 08/17/17 13:59 Last Admin: 08/17/17 09:45 Dose: 30 mls/hr Potassium Acetate 20 meq/ (Sodium Chloride) 110 mls @ 55 mls/hr IV ONETIME ONE Stop: 08/17/17 16:59 Last Admin: 08/17/17 14:37 Dose: 55 mls/hr Linezolid 600 mg/ Premix 300 mls @ 300 mls/hr IV Q12H [facility] Last Admin: 08/19/17 20:02 Dose: 300 mls/hr Levofloxacin/Dextrose 750 mg/ (Premix) 150 mls @ 100 mls/hr IV Q48H [facility] Last Admin: 08/17/17 21:25 Dose: Not Given Lidocaine HCl (Xylocaine-Mpf 1%) Confirm Administered Dose 2 mls @ as directed .ROUTE .STK-MED ONE Stop: 08/18/17 15:00 Sodium Chloride (Normal Saline) Confirm Administered Dose 500 mls @ as directed .ROUTE .STK-MED ONE Stop: 08/18/17 15:31 Fat Emulsion Intravenous (Intralipid 20%) 100 mls @ 8.5 mls/hr IV ONETIME ONE Stop: 08/20/17 05:45 Last Admin: 08/19/17 17:14 Dose: 8.5 mls/hr Lactated Ringer's (Ringers, Lactated) 1,000 mls @ 200 mls/hr IV ASDIRECTED [facility] Stop: 08/19/17 15:46 Lactated Ringer's (Ringers, Lactated) Confirm Administered Dose 1,000 mls @ as directed .ROUTE .STK-MED ONE Stop: 08/20/17 07:42 Lactated Ringer's (Ringers, Lactated) 1,000 mls @ 200 mls/hr IV ASDIRECTED [facility] Last Admin: 08/21/17 06:07 Dose: 200 mls/hr Fat Emulsion Intravenous (Intralipid 20%) 100 mls @ 8.5 mls/hr IV ONETIME ONE Stop: 08/21/17 05:45 Last Admin: 08/20/17 17:20 Dose: 8.5 mls/hr Ketamine HCl (Ketalar) Confirm Administered Dose 500 mg .ROUTE .STK-MED ONE Stop: 08/11/17 00:16 Ketamine HCl (Ketalar) Confirm Administered Dose 500 mg .ROUTE .STK-MED ONE Stop: 08/15/17 07:29 Ketorolac Tromethamine (Toradol) 15 mg IVPUSH ONETIME ONE Stop: 08/19/17 17:31 Last Admin: 08/19/17 17:25 Dose: 15 mg Lidocaine HCl (Xylocaine 2%) Confirm Administered Dose 100 mg .ROUTE .STK-MED ONE Stop: 08/12/17 15:54 Lidocaine/Epinephrine (Xylocaine 1% With Epinephrine 1:100,000) Confirm Administered Dose 50 ml .ROUTE .STK-MED ONE Stop: 08/12/17 11:51 Lidocaine/Epinephrine (Xylocaine 1% With Epinephrine 1:100,000) Confirm Administered Dose 50 ml .ROUTE .STK-MED ONE Stop: 08/18/17 13:39 Lidocaine/Epinephrine (Xylocaine 1% With Epinephrine 1:100,000) Confirm Administered Dose 50 ml .ROUTE .STK-MED ONE Stop: 08/20/17 06:47 Meropenem (Merrem) Confirm Administered Dose 500 mg .ROUTE .STK-MED ONE Stop: 08/10/17 14:06 Last Admin: 08/10/17 14:14 Dose: 500 mg Midazolam HCl (Versed 1 Mg/Ml) Confirm Administered Dose 2 mg .ROUTE .STK-MED ONE Stop: 08/15/17 07:29 Midazolam HCl (Versed 1 Mg/Ml) Confirm Administered Dose 2 mg .ROUTE .STK-MED ONE Stop: 08/18/17 14:54 Midazolam HCl (Versed 1 Mg/Ml) Confirm Administered Dose 2 mg .ROUTE .STK-MED ONE Stop: 08/20/17 07:32 Midazolam HCl (Versed 1 Mg/Ml) Confirm Administered Dose 2 mg .ROUTE .STK-MED ONE Stop: 08/22/17 11:00 Neostigmine Methylsulfate (Neostigmine) Confirm Administered Dose 5 mg .ROUTE .STK-MED ONE Stop: 08/10/17 10:37 Neostigmine Methylsulfate (Neostigmine) Confirm Administered Dose 5 mg .ROUTE .STK-MED ONE Stop: 08/11/17 00:15 Neostigmine Methylsulfate (Neostigmine) Confirm Administered Dose 5 mg .ROUTE .STK-MED ONE Stop: 08/12/17 15:54 Neostigmine Methylsulfate (Neostigmine) Confirm Administered Dose 5 mg .ROUTE .STK-MED ONE Stop: 08/15/17 07:28 Check Scopolamine (Patch) 0 each .XX DAILY [facility] Stop: 08/13/17 09:01 Last Admin: 08/13/17 10:08 Dose: Not Given Non-Formulary Medication (Total Parenteral Nutrition, Central) 1,000 ml .XX .Continue Order [facility] PRN Reason: Protocol Stop: 08/18/17 13:00 Non-Formulary Medication (Total Parenteral Nutrition, Central) 1,000 ml .XX .Continue Order [facility] Stop: 08/21/17 06:00 Non-Formulary Medication (Total Parenteral Nutrition, Central) 1,000 ml .XX .Continue Order [facility] PRN Reason: Protocol Stop: 08/21/17 14:00 Ondansetron HCl (Zofran) Confirm Administered Dose 4 mg .ROUTE .STK-MED ONE Stop: 08/10/17 10:37 Ondansetron HCl (Zofran) Confirm Administered Dose 8 mg .ROUTE .STK-MED ONE Stop: 08/10/17 16:21 Ondansetron HCl (Zofran) Confirm Administered Dose 4 mg .ROUTE .STK-MED ONE Stop: 08/11/17 00:15 Ondansetron HCl (Zofran) Confirm Administered Dose 4 mg .ROUTE .STK-MED ONE Stop: 08/12/17 15:54 Ondansetron HCl (Zofran) Confirm Administered Dose 4 mg .ROUTE .STK-MED ONE Stop: 08/15/17 07:28 Petrolatum (Vaseline) 0 gm TOP ONETIME ONE Stop: 08/20/17 07:31 Last Admin: 08/20/17 09:43 Dose: 1 applic Propofol (Diprivan 20 Ml) Confirm Administered Dose 200 mg .ROUTE .[facility] Stop: 08/10/17 10:37 Propofol (Diprivan 20 Ml) Confirm Administered Dose 200 mg .ROUTE .[facility] Stop: 08/12/17 15:54 Propofol (Diprivan 20 Ml) Confirm Administered Dose 200 mg .ROUTE .[facility] ONE Stop: 08/15/17 07:28 Propofol (Diprivan 20 Ml) Confirm Administered Dose 200 mg .ROUTE .[facility] ONE Stop: 08/18/17 14:54 Propofol (Diprivan 20 Ml) Confirm Administered Dose 200 mg .ROUTE .[facility] ONE Stop: 08/20/17 07:32 Propofol (Diprivan 20 Ml) Confirm Administered Dose 200 mg .ROUTE .[facility] ONE Stop: 08/22/17 11:00 Rocuronium [place] (Zemuron) Confirm Administered Dose 50 mg .ROUTE .[facility] Stop: 08/10/17 10:37 Rocuronium [place] (Zemuron) Confirm Administered Dose 50 mg .ROUTE .[facility] ONE Stop: 08/10/17 13:50 Rocuronium [place] (Zemuron) Confirm Administered Dose 50 mg .ROUTE .[facility] ONE Stop: 08/11/17 00:15 Rocuronium [place] (Zemuron) Confirm Administered Dose 50 mg .ROUTE .[facility] Stop: 08/12/17 15:54 Rocuronium [place] (Zemuron) Confirm Administered Dose 50 mg .ROUTE .[facility] Stop: 08/15/17 07:28 Scopolamine (Transderm-Scop) 1.5 mg TOP ONETIME ONE Stop: 08/10/17 16:20 Last Admin: 08/10/17 17:23 Dose: 1.5 mg Succinylcholine Chlor[place] (Quelicin) Confirm Administered Dose 200 mg .ROUTE .[facility] Stop: 08/10/17 10:37 Succinylcholine Chloride (Quelicin) Confirm Administered Dose 200 mg .ROUTE .[facility] Stop: 08/11/17 00:15 Succinylcholine Chloride (Quelicin) Confirm Administered Dose 200 mg .ROUTE .[facility] Stop: 08/12/17 15:54 Succinylcholine Chloride (Quelicin) Confirm Administered Dose 200 mg .ROUTE .[facility] Stop: 08/15/17 07:28 Vancomycin HCl (Vancomycin) 1 gm IV .PHARMACY TO DOSE [facility]ANEY Stop: 08/12/17 09:00 - Exam Quality Assessment: No: Supplemental Oxygen General: Alert, Oriented, Cooperative, No Acute Distress Neck: Supple Lungs: Normal Respiratory Effort GI/Abdominal Exam: No Distention Extremities: No Pedal Edema Psy/Mental Status: Alert, Normal Affect - Problem List Review Problem List Initiated/Reviewed/Updated: Yes - My Orders Last 24 Hours: My Active Orders 08/22/17 02:20 Urinary Catheter Assessment [RC] ASDIRECTED 08/22/17 02:30 Louie Catheter Insertion [Insert Urinary Catheter] [OM.PC] Q24H 08/22/17 18:00 Fat Emulsion [Intralipid 20%] 100 ml IV ONETIME 08/23/17 05:00 BASIC METABOLIC PANEL,BMP [CHEM] Timed CBC W/O DIFF,HEMOGRAM [HEME] Timed (1) - Plan Plan:: ASSESSMENT AND RECOMMENDATIONS FEVER - fevers have resolved. Culture still negative. 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 Currently nothing by mouth and on TPN. -Postoperative cares per Dr. Keyes -Continue TPN ACUTE KIDNEY INJURY - no obvious cause for fairly high volume diuresis each day. Kidney function improving with positive fluid balance over the past 2 days. She was also started on IV hydrocortisone with a history of being on Florinef for postural hypotension. -LR at 185 ml/hr -TPN as above -Additional Boluses as indicated based on intake and output balance -Continue to closely monitor urine output and renal function -Continue hydrocortisone HYPOKALEMIA - mild and will be replaced through the TPN. HISTORY OF DEEP VEIN THROMBOSIS AND PULMONARY EMBOLISM - currently on systemic anticoagulation with enoxaparin. -Enoxaparin 90 mg subcutaneous every 12 hours -Plan to restart Xarelto when she is able to take oral medications TYPE 2 DIABETES MELLITUS - blood sugars have been well controlled with the addition of insulin to the TPN. -Continue insulin in TPN HYPERTENSION - blood pressures have been well-controlled. -Metoprolol 2.5 mg IV every 4 hours -Transition to oral medications when able Kel Tabor MD
[2017-08-22] MEDS: Pantoprazole 40 MG Vial IVPUSH SCH (16:25)
[2017-08-22] MEDS ORDERED: Fat Emulsion 100 ML IV ONE (18:00)
[2017-08-22] MEDS: fentaNYL/Normal Saline 600 MCG/30 ML PCA Vial IV PRN (20:59)
[2017-08-23] MEDS: Metoprolol Tartrate 5 MG/5 ML SDV IVPUSH SCH ×6 (01:44→21:11)
[2017-08-23] MEDS: Lactated Ringers 1,000 ML IV SCH ×4 (01:54→17:55)
[2017-08-23] MEDS: Hydrocortisone Sodium Succinate 100 MG/2 ML SDV IVPUSH SCH ×3 (05:07→21:10)
[2017-08-23] MEDS: 1: AA 5%/Calcium/D15W/Lytes 1,000 ML with MVI, Adult with Vitamin K 10 ML, Chromium/Copp IV SCH ×6 (07:00→19:42)
[2017-08-23] MEDS: LORazepam 2 MG/ML MDV IVPUSH PRN ×3 (07:45→22:01)
[2017-08-23] MEDS ORDERED: Central Total Parenteral Nutrition Bag SCH (08:15)
[2017-08-23] MEDS ORDERED: Potassium Chloride 40 MEQ in Premix Bag 1 BAG IV ONE (09:00)
[2017-08-23] MEDS: Enoxaparin 100 MG/1 ML Syringe SUBCUT SCH ×2 (09:49→21:11)
[2017-08-23] MEDS: diphenhydrAMINE 50 MG/ML SDV IVPUSH PRN ×2 (10:38→17:45)
--- NOTE | 2017-08-23 13:01 | PN ---
DATE OF SERVICE: 08/23/2017 SUBJECTIVE: The patient continues to slowly improve. Fistula output is actually decreasing. Pain is well controlled. No nausea, vomiting, shortness of breath, or chest pain. OBJECTIVE: VITAL SIGNS: Stable. CARDIOVASCULAR: Regular rhythm and rate. RESPIRATORY: Lungs are clear to auscultation bilaterally. ABDOMEN: Bowel sounds are positive. Drain output again is decreasing, however, no significant change. ASSESSMENT: Abdominal fistula. PLAN: The patient is scheduled to transfer to [facility] on Friday. We will continue same plan until then. We will continue to watch for signs and symptoms and complication. Jhonatan Keyes MD /[phone]
[2017-08-23] MEDS: Pantoprazole 40 MG Vial IVPUSH SCH (16:21)
[2017-08-24] MEDS: Metoprolol Tartrate 5 MG/5 ML SDV IVPUSH SCH ×6 (01:56→21:00)
[2017-08-24] MEDS: Lactated Ringers 1,000 ML IV SCH ×5 (01:57→21:44)
[2017-08-24] MEDS: Hydrocortisone Sodium Succinate 100 MG/2 ML SDV IVPUSH SCH ×3 (05:18→21:00)
[2017-08-24] MEDS: Enoxaparin 100 MG/1 ML Syringe SUBCUT SCH ×2 (09:02→20:53)
[2017-08-24] MEDS: 1: AA 5%/Calcium/D15W/Lytes 1,000 ML with MVI, Adult with Vitamin K 10 ML, Chromium/Copp IV SCH ×6 (09:28→22:39)
[2017-08-24] MEDS: LORazepam 2 MG/ML MDV IVPUSH PRN ×3 (09:31→21:48)
--- NOTE | 2017-08-24 09:36 | PCM.PN ---
- General Info Date of Service: 08/24/17 Functional Status: Reports: Pain Controlled - Review of Systems General: Reports: Weakness. Denies: Fever Gastrointestinal: Reports: Abdominal Pain Systems Review Comment:: There were no acute events overnight. She did have a fairly high urine output throughout the day yesterday. Her vital signs have remained stable with borderline tachycardia. Blood pressures have been stable. Pain is well- controlled at this time and there have not been any leak issues with the wound VAC. She has not had any fevers. She is in good spirits today. The plan is for transfer to the [facility] tomorrow. - Patient Data Vitals - Most Recent: Last Vital Signs Temp 36.8 C 08/24/17 08:00 Pulse 105 H 08/24/17 06:00 Resp 18 08/24/17 08:00 BP 151/71 H 08/24/17 08:00 Pulse Ox 97 08/24/17 08:00 Weight - Most Recent: 83.007 kg I&O - Last 24 Hours: Intake & Output 08/23/17 08/24/17 08/24/17 22:59 06:59 14:59 Intake Total 3387 2870 Output Total 2275 2400 500 Balance 1112 470 -500 Lab Results Last 24 Hours: Laboratory Results - last 24 hr 08/24/17 08/24/17 Range/Units 09:04 09:04 WBC 13.3 H (4.5-11.0) K/uL RBC 3.61 (3.30-5.50) M/uL Hgb 10.7 L (12.0-15.0) g/dL Hct 32.0 L (36.0-48.0) % MCV 89 (80-98) fL MCH 30 (27-31) pg MCHC 33 (32-36) % Plt Count 783 H (150-400) K/uL Neut % (Auto) 84 H (36-66) % Lymph % (Auto) 11 L (24-44) % [place] % (Auto) 4 (2-6) % Eos % (Auto) 2 (2-4) % Baso % (Auto) 0 (0-1) % Sodium 143 (140-148) mmol/L Potassium 3.5 L (3.6-5.2) mmol/L Chloride 106 (100-108) mmol/L Carbon Dioxide 28 (21-32) mmol/L Anion Gap 12.5 (5.0-14.0) mmol/L BUN 28 H (7-18) mg/dL Creatinine 1.2 H (0.6-1.0) mg/dL Est Cr Clr Drug Dosing 44.79 mL/min Estimated GFR (MDRD) 46 L (>60) Glucose 143 H (74-106) mg/dL Calcium 9.2 (8.5-10.1) mg/dL Med Orders - Current: Current Medications Acetaminophen (Tylenol) 650 mg RECTAL Q4H PRN PRN Reason: Fever Last Admin: 08/17/17 20:58 Dose: 650 mg Benzocaine/Menthol (Cepacol Sore Throat) 1 lozenge MUCMEM Q1H PRN PRN Reason: Sore Throat Dimethicone/Zinc Oxide (Rash Relief-Zinc Oxide [place]) 0 gm TOP ASDIRECTED PRN PRN Reason: Rash Last Admin: 08/21/17 12:49 Dose: 2 sprays Diphenhydramine HCl (Benadryl) 50 mg IVPUSH Q4H PRN PRN Reason: Itching Last Admin: 08/23/17 17:45 Dose: 50 mg Enoxaparin Sodium (Lovenox) 90 mg SUBCUT Q12H [facility] Last Admin: 08/24/17 09:02 Dose: 90 mg Fentanyl Citrate (Fentanyl In Ns 20 Mcg/Ml 30 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) 0 mcg IV ASDIRECTED PRN; Protocol PRN Reason: PAIN Last Admin: 08/22/17 20:59 Dose: 600 mcg Fluticasone Propionate (Flonase) 0 gm NASBOTH DAILY PRN PRN Reason: Congestion Heparin Sodium (Porcine) (Heparin Lock Flush 100 Units/Ml) 500 units FLUSH 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 Last Admin: 08/24/17 09:02 Dose: 500 units Hydrocortisone Sodium Succinate (Solu-Cortef) 25 mg IVPUSH Q8H [facility] Last Admin: 08/24/17 05:18 Dose: 25 mg Hydroxyzine HCl (Vistaril) 50 - 100 mg IM Q4H PRN PRN Reason: Nausea Last Admin: 08/21/17 11:38 Dose: 100 mg Meropenem 1 gm/ Sodium (Chloride) 50 mls @ 100 mls/hr IV Q12H [facility] Last Admin: 08/24/17 09:04 Dose: 100 mls/hr Multivitamins/Minerals 10 ml/Chromium/Copper/Manganese/Seleni/Zn 1 ml/ Amino Ac/ Electrol/Dextrose/Calcium 1,011 mls @ 76 mls/hr IV .BY DURATION [facility] Last Admin: 08/23/17 19:42 Dose: 76 mls/hr Amino Ac/Electrol/Dextrose/Calcium (Clinimix E 5/15) 1,000 mls @ 76 mls/hr IV .BY DURATION [facility] Last Admin: 08/24/17 09:28 Dose: 76 mls/hr Lactated Ringer's (Ringers, Lactated) 1,000 mls @ 185 mls/hr IV ASDIRECTED [facility] Last Admin: 08/24/17 05:18 Dose: 185 mls/hr Lorazepam (Ativan) 0.5 - 1.5 mg IVPUSH Q6H PRN PRN Reason: Anxiety Last Admin: 08/24/17 09:31 Dose: 1 mg Metoprolol Tartrate (Lopressor) 2.5 mg IVPUSH Q4H [facility] Last Admin: 08/24/17 05:17 Dose: 2.5 mg Naloxone HCl (Narcan) 0.1 mg IV ASDIRECTED PRN PRN Reason: RESP. DEPRESSION Non-Formulary Medication (Total Parenteral Nutrition, Central) 1,000 ml .XX .Continue Order [facility] PRN Reason: Protocol Last Admin: 08/23/17 09:02 Dose: Not Given Ondansetron HCl (Zofran) 4 mg IVPUSH Q4H PRN PRN Reason: Nausea/Vomiting Last Admin: 08/13/17 13:44 Dose: 4 mg Pantoprazole Sodium (Protonix Iv) 40 mg IVPUSH Q24H [facility] Last Admin: 08/23/17 16:21 Dose: 40 mg Discontinued Medications Bacitracin (Bacitracin Oint 1 Gm) 1 dose TOP ONETIME ONE Stop: 08/14/17 10:46 Last Admin: 08/14/17 11:00 Dose: 1 dose Bupivacaine HCl (Marcaine 0.5%) Confirm Administered Dose 50 ml .ROUTE .STK-MED ONE Stop: 08/18/17 13:39 Dexamethasone (Dexamethasone) Confirm Administered Dose 4 mg .ROUTE .STK-MED ONE Stop: 08/10/17 10:37 Dexamethasone (Dexamethasone) Confirm Administered Dose 4 mg .ROUTE .ST-MED ONE Stop: 08/11/17 00:15 Dexamethasone (Dexamethasone) Confirm Administered Dose 4 mg .ROUTE .[facility] ONE Stop: 08/12/17 15:54 Dexamethasone (Dexamethasone) Confirm Administered Dose 4 mg .ROUTE .ST-MED ONE Stop: 08/15/17 07:28 Enoxaparin Sodium (Lovenox) 40 mg SUBCUT DAILY [facility] Last Admin: 08/15/17 14:10 Dose: 40 mg Enoxaparin Sodium (Lovenox) 90 mg SUBCUT DAILY [facility] Fentanyl (Sublimaze) Confirm Administered Dose 250 mcg .ROUTE .[facility] ONE Stop: 08/10/17 10:37 Fentanyl (Sublimaze) Confirm Administered Dose 250 mcg .ROUTE .[facility] ONE Stop: 08/10/17 13:06 Fentanyl (Sublimaze) Confirm Administered Dose 250 mcg .ROUTE .[facility] ONE Stop: 08/11/17 00:15 Fentanyl (Sublimaze) Confirm Administered Dose 250 mcg .ROUTE .[facility] ONE Stop: 08/12/17 15:53 Fentanyl (Sublimaze) Confirm Administered Dose 250 mcg .ROUTE .[facility] ONE Stop: 08/15/17 07:29 Fentanyl (Sublimaze) Confirm Administered Dose 100 mcg .ROUTE .ST-MED ONE Stop: 08/18/17 14:54 Fentanyl (Sublimaze) Confirm Administered Dose 100 mcg .ROUTE .ST-MED ONE Stop: 08/20/17 07:32 Fentanyl (Sublimaze) Confirm Administered Dose 100 mcg .ROUTE .[facility] ONE Stop: 08/22/17 11:00 Fentanyl Citrate (Fentanyl In Ns 20 Mcg/Ml 30 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) Confirm Administered Dose 600 mcg .ROUTE .ST-MED ONE Stop: 08/10/17 15:41 Last Admin: 08/10/17 16:35 Dose: 10 mcg Glycopyrrolate (Robinul) Confirm Administered Dose 1 mg .ROUTE .ST-MED ONE Stop: 08/10/17 10:37 Glycopyrrolate (Robinul) Confirm Administered Dose 1 mg .ROUTE .ST-MED ONE Stop: 08/11/17 00:15 Glycopyrrolate (Robinul) Confirm Administered Dose 1 mg .ROUTE .STK-MED ONE Stop: 08/12/17 15:54 Glycopyrrolate (Robinul) Confirm Administered Dose 1 mg .ROUTE .STK-MED ONE Stop: 08/15/17 07:28 Heparin Sodium (Porcine) (Heparin Lock Flush 100 Units/Ml) Confirm Administered Dose 1,000 units .ROUTE .STK-MED ONE Stop: 08/10/17 10:55 Last Admin: 08/10/17 12:15 Dose: 1,000 units Heparin Sodium (Porcine) (Heparin Lock Flush 100 Units/Ml) Confirm Administered Dose 500 units .ROUTE .STK-MED ONE Stop: 08/12/17 15:46 Last Admin: 08/12/17 16:13 Dose: Not Given Heparin Sodium (Porcine) (Heparin Lock Flush 100 Units/Ml) Confirm Administered Dose 1,000 units .ROUTE .STK-MED ONE Stop: 08/18/17 15:21 Heparin Sodium (Porcine) (Heparin Lock Flush 100 Units/Ml) Confirm Administered Dose 500 units .ROUTE .STK-MED ONE Stop: 08/18/17 15:25 Hydromorphone HCl (Dilaudid) 0.5 mg IVPUSH ONETIME ONE Stop: 08/20/17 10:31 Last Admin: 08/20/17 16:01 Dose: Not Given Sodium Chloride (Normal Saline) 1,000 mls @ 100 mls/hr IV ASDIRECTED [facility] Last Admin: 08/11/17 09:53 Dose: 100 mls/hr Piperacillin/Tazobactam/ (Dextrose 4.5 gm/ Premix) 100 mls @ 200 mls/hr IV ONETIME ONE Stop: 08/10/17 11:29 Last Admin: 08/10/17 11:09 Dose: 200 mls/hr Lactated Ringer's (Ringers, Lactated) Confirm Administered Dose 1,000 mls @ as directed .ROUTE .STK-MED ONE Stop: 08/10/17 15:24 Lactated Ringer's (Ringers, Lactated) Confirm Administered Dose 1,000 mls @ as directed .ROUTE .STK-MED ONE Stop: 08/10/17 15:24 Piperacillin Sod/Tazobactam (Sod 4.5 gm/ Sodium Chloride) 100 mls @ 200 mls/hr IV Q8H [facility] Last Admin: 08/11/17 04:06 Dose: 200 mls/hr Sodium Chloride (Normal Saline) 1,000 mls @ 500 mls/hr IV ASDIRECTED [facility] Last Infusion: 08/10/17 20:36 Dose: 0 mls/hr Piperacillin/Tazobactam/ (Dextrose 4.5 gm/ Premix) 100 mls @ 200 mls/hr IV Q8H [facility] Last Admin: 08/15/17 03:39 Dose: 200 mls/hr Sodium Chloride (Normal Saline) 1,000 mls @ 125 mls/hr IV ASDIRECTED [facility] Last Admin: 08/12/17 20:25 Dose: 125 mls/hr Vancomycin HCl 1 gm/ Sodium (Chloride) 250 mls @ 150 mls/hr IV ONETIME ONE Stop: 08/11/17 21:37 Last Admin: 08/11/17 20:27 Dose: Not Given Vancomycin HCl 1.5 gm/ Sodium (Chloride) 250 mls @ 166.667 mls/hr IV Q12H [facility] Last Admin: 08/13/17 10:19 Dose: Not Given Potassium Chloride 20 meq/Lidocaine HCl 2 ml/ Sodium Chloride 112 mls @ 56 mls/ hr IV Q2H [facility] Stop: 08/12/17 14:59 Last Admin: 08/12/17 13:17 Dose: 56 mls/hr Potassium Chloride 20 meq/ (Premix) 100 mls @ 50 mls/hr IV ONETIME ONE Stop: 08/12/17 17:59 Last Admin: 08/12/17 15:38 Dose: 50 mls/hr Vancomycin HCl 1.6 gm/ Sodium (Chloride) 250 mls @ 250 mls/hr IV Q12H [facility] Last Admin: 08/14/17 21:59 Dose: 250 mls/hr Potassium Chloride/Dextrose/Sod Cl (D5 1/2 Ns W/ 20 Meq/L Kcl) 1,000 mls @ 25 mls/hr IV ASDIRECTED [facility] Last Admin: 08/15/17 09:57 Dose: 25 mls/hr Multivitamins/Minerals 10 ml/Chromium/Copper/Manganese/Seleni/Zn 1 ml/ Amino Ac/ Electrol/Dextrose/Calcium 1,011 mls @ 76 mls/hr IV .BY DURATION [facility] Stop: 08/14/17 14:30 Last Admin: 08/13/17 13:11 Dose: 76 mls/hr Amino Ac/Electrol/Dextrose/Calcium (Clinimix E 5/15) 1,000 mls @ 76 mls/hr IV .BY DURATION [facility] Stop: 08/14/17 14:30 Last Admin: 08/14/17 02:18 Dose: 76 mls/hr Fat Emulsion Intravenous (Intralipid 20%) 100 mls @ 8.5 mls/hr IV ONETIME ONE Stop: 08/14/17 03:45 Last Admin: 08/13/17 15:54 Dose: 8.5 mls/hr Multivitamins/Minerals 10 ml/Chromium/Copper/Manganese/Seleni/Zn 1 ml/ Amino Ac/ Electrol/Dextrose/Calcium 1,011 mls @ 76 mls/hr IV .BY DURATION [facility] Stop: 08/16/17 15:55 Last Admin: 08/15/17 16:56 Dose: 76 mls/hr Amino Ac/Electrol/Dextrose/Calcium (Clinimix E 5/15) 1,000 mls @ 76 mls/hr IV .BY DURATION [facility] Stop: 08/16/17 15:55 Last Admin: 08/16/17 09:26 Dose: Not Given Fat Emulsion Intravenous (Intralipid 20%) 100 mls @ 8.3 mls/hr IV ONETIME ONE Stop: 08/15/17 04:02 Last Admin: 08/14/17 15:32 Dose: 8.3 mls/hr Sodium Chloride (Normal Saline) 1,000 mls @ 999 mls/hr IV .BOLUS ONE Stop: 08/15/17 08:51 Last Admin: 08/15/17 07:55 Dose: 999 mls/hr Piperacillin/Tazobactam/ (Dextrose 2.25 gm/ Premix) 50 mls @ 100 mls/hr IV Q6H [facility] Last Admin: 08/17/17 18:21 Dose: 100 mls/hr Fat Emulsion Intravenous (Intralipid 20%) 100 mls @ 8.5 mls/hr IV ONETIME ONE Stop: 08/16/17 05:45 Last Admin: 08/15/17 17:45 Dose: 8.5 mls/hr Sodium Chloride (Normal Saline) 1,000 mls @ 250 mls/hr IV ASDIRECTED [facility] Stop: 08/16/17 00:46 Last Admin: 08/16/17 00:09 Dose: 250 mls/hr Sodium Chloride (Normal Saline) 1,000 mls @ 125 mls/hr IV ASDIRECTED [facility] Last Admin: 08/16/17 06:50 Dose: 125 mls/hr Potassium Chloride 40 meq/ (Premix) 100 mls @ 25 mls/hr IV ONETIME ONE Stop: 08/15/17 22:48 Last Admin: 08/15/17 19:29 Dose: 25 mls/hr Sodium Chloride (Normal Saline) 1,000 mls @ 50 mls/hr IV ASDIRECTED [facility] Last Admin: 08/17/17 00:14 Dose: 50 mls/hr Multivitamins/Minerals 10 ml/Chromium/Copper/Manganese/Seleni/Zn 1 ml/ Amino Ac/ Electrol/Dextrose/Calcium 1,011 mls @ 76 mls/hr IV .BY DURATION [facility] Stop: 08/17/17 17:00 Last Admin: 08/16/17 15:41 Dose: 76 mls/hr Amino Ac/Electrol/Dextrose/Calcium (Clinimix E 15) 1,000 mls @ 76 mls/hr IV .BY DURATION [facility] Stop: 08/17/17 17:00 Last Admin: 08/17/17 05:13 Dose: 76 mls/hr Fat Emulsion Intravenous (Intralipid 20%) 100 mls @ 8.3 mls/hr IV ONETIME ONE Stop: 08/17/17 04:02 Last Admin: 08/16/17 15:42 Dose: 8.3 mls/hr Vancomycin HCl 1.5 gm/ Sodium (Chloride) 250 mls @ 167 mls/hr IV ONETIME ONE Stop: 08/16/17 17:29 Last Admin: 08/16/17 15:11 Dose: 167 mls/hr Potassium Chloride 40 meq/ (Premix) 100 mls @ 25 mls/hr IV ONETIME ONE Stop: 08/17/17 12:29 Last Admin: 08/17/17 08:16 Dose: 25 mls/hr Potassium Chloride/Sodium Chloride (Normal Saline With 20 Meq Kcl) 1,000 mls @ 125 mls/hr IV ASDIRECTED [facility] Last Admin: 08/20/17 06:25 Dose: 125 mls/hr Sodium Chloride (Normal Saline) 1,000 mls @ 250 mls/hr IV ASDIRECTED [facility] Stop: 08/17/17 16:01 Last Admin: 08/17/17 13:55 Dose: 250 mls/hr Fat Emulsion Intravenous (Intralipid 20%) 100 mls @ 8.3 mls/hr IV ONETIME ONE Stop: 08/18/17 04:02 Last Admin: 08/17/17 16:24 Dose: 8.3 mls/hr Multivitamins/Minerals 10 ml/Chromium/Copper/Manganese/Seleni/Zn 1 ml/ Amino Ac/ Electrol/Dextrose/Calcium 1,011 mls @ 76 mls/hr IV .BY DURATION [facility] Last Admin: 08/18/17 20:46 Dose: 76 mls/hr Amino Ac/Electrol/Dextrose/Calcium (Clinimix E 02/01) 1,000 mls @ 76 mls/hr IV .BY DURATION [facility] Last Admin: 08/18/17 07:29 Dose: 76 mls/hr Albumin Human (Albumin 25%) 25 gm in 100 mls @ 25 mls/hr IV DAILY [facility] Stop: 08/20/17 12:59 Last Admin: 08/20/17 09:53 Dose: 25 mls/hr Albumin Human (Albumin 25%) 25 gm in 100 mls @ 25 mls/hr IV Q24H [facility] Stop: 08/20/17 16:59 Last Admin: 08/20/17 13:17 Dose: 25 mls/hr Potassium Acetate 40 meq/ (Sodium Chloride) 120 mls @ 30 mls/hr IV ONETIME ONE Stop: 08/17/17 13:59 Last Admin: 08/17/17 09:45 Dose: 30 mls/hr Potassium Acetate 20 meq/ (Sodium Chloride) 110 mls @ 55 mls/hr IV ONETIME ONE Stop: 08/17/17 16:59 Last Admin: 08/17/17 14:37 Dose: 55 mls/hr Linezolid 600 mg/ Premix 300 mls @ 300 mls/hr IV Q12H [facility] Last Admin: 08/19/17 20:02 Dose: 300 mls/hr Levofloxacin/Dextrose 750 mg/ (Premix) 150 mls @ 100 mls/hr IV Q48H [facility] Last Admin: 08/17/17 21:25 Dose: Not Given Levofloxacin/Dextrose 750 mg/ (Premix) 150 mls @ 100 mls/hr IV Q24H [facility] Last Admin: 08/21/17 20:26 Dose: 100 mls/hr Lidocaine HCl (Xylocaine-Mpf 1%) Confirm Administered Dose 2 mls @ as directed .ROUTE .STK-MED ONE Stop: 08/18/17 15:00 Sodium Chloride (Normal Saline) Confirm Administered Dose 500 mls @ as directed .ROUTE .STK-MED ONE Stop: 08/18/17 15:31 Fat Emulsion Intravenous (Intralipid 20%) 100 mls @ 8.5 mls/hr IV ONETIME ONE Stop: 08/20/17 05:45 Last Admin: 08/19/17 17:14 Dose: 8.5 mls/hr Lactated Ringer's (Ringers, Lactated) 1,000 mls @ 200 mls/hr IV ASDIRECTED [facility] Stop: 08/19/17 15:46 Lactated Ringer's (Ringers, Lactated) Confirm Administered Dose 1,000 mls @ as directed .ROUTE .STK-MED ONE Stop: 08/20/17 07:42 Lactated Ringer's (Ringers, Lactated) 1,000 mls @ 200 mls/hr IV ASDIRECTED [facility] Last Admin: 08/21/17 06:07 Dose: 200 mls/hr Fat Emulsion Intravenous (Intralipid 20%) 100 mls @ 8.5 mls/hr IV ONETIME ONE Stop: 08/21/17 05:45 Last Admin: 08/20/17 17:20 Dose: 8.5 mls/hr Fat Emulsion Intravenous (Intralipid 20%) 100 mls @ 8.5 mls/hr IV ONETIME ONE Stop: 08/23/17 05:45 Last Admin: 08/22/17 17:53 Dose: 8.5 mls/hr Potassium Chloride 40 meq/ (Premix) 100 mls @ 25 mls/hr IV ONETIME ONE Stop: 08/23/17 12:59 Last Admin: 08/23/17 08:56 Dose: 25 mls/hr Ketamine HCl (Ketalar) Confirm Administered Dose 500 mg .ROUTE .STK-MED ONE Stop: 08/11/17 00:16 Ketamine HCl (Ketalar) Confirm Administered Dose 500 mg .ROUTE .STK-MED ONE Stop: 08/15/17 07:29 Ketorolac Tromethamine (Toradol) 15 mg IVPUSH ONETIME ONE Stop: 08/19/17 17:31 Last Admin: 08/19/17 17:25 Dose: 15 mg Lidocaine HCl (Xylocaine 2%) Confirm Administered Dose 100 mg .ROUTE .STK-MED ONE Stop: 08/12/17 15:54 Lidocaine/Epinephrine (Xylocaine 1% With Epinephrine 1:100,000) Confirm Administered Dose 50 ml .ROUTE .STK-MED ONE Stop: 08/12/17 11:51 Lidocaine/Epinephrine (Xylocaine 1% With Epinephrine 1:100,000) Confirm Administered Dose 50 ml .ROUTE .STK-MED ONE Stop: 08/18/17 13:39 Lidocaine/Epinephrine (Xylocaine 1% With Epinephrine 1:100,000) Confirm Administered Dose 50 ml .ROUTE .STK-MED ONE Stop: 08/20/17 06:47 Meropenem (Merrem) Confirm Administered Dose 500 mg .ROUTE .[facility] ONE Stop: 08/10/17 14:06 Last Admin: 08/10/17 14:14 Dose: 500 mg Midazolam HCl (Versed 1 Mg/Ml) Confirm Administered Dose 2 mg .ROUTE .ST-MED ONE Stop: 08/15/17 07:29 Midazolam HCl (Versed 1 Mg/Ml) Confirm Administered Dose 2 mg .ROUTE .ST-MED ONE Stop: 08/18/17 14:54 Midazolam HCl (Versed 1 Mg/Ml) Confirm Administered Dose 2 mg .ROUTE .ST-MED ONE Stop: 08/20/17 07:32 Midazolam HCl (Versed 1 Mg/Ml) Confirm Administered Dose 2 mg .ROUTE .ST-MED ONE Stop: 08/22/17 11:00 Neostigmine Methylsulfate (Neostigmine) Confirm Administered Dose 5 mg .ROUTE .STK-MED ONE Stop: 08/10/17 10:37 Neostigmine Methylsulfate (Neostigmine) Confirm Administered Dose 5 mg .ROUTE .STK-MED ONE Stop: 08/11/17 00:15 Neostigmine Methylsulfate (Neostigmine) Confirm Administered Dose 5 mg .ROUTE .ST-MED ONE Stop: 08/12/17 15:54 Neostigmine Methylsulfate (Neostigmine) Confirm Administered Dose 5 mg .ROUTE .STK-MED ONE Stop: 08/15/17 07:28 Check Scopolamine (Patch) 0 each .XX DAILY [facility] Stop: 08/13/17 09:01 Last Admin: 08/13/17 10:08 Dose: Not Given Non-Formulary Medication (Total Parenteral Nutrition, Central) 1,000 ml .XX .Continue Order [facility] PRN Reason: Protocol Stop: 08/18/17 13:00 Non-Formulary Medication (Total Parenteral Nutrition, Central) 1,000 ml .XX .Continue Order [facility] Stop: 08/21/17 06:00 Non-Formulary Medication (Total Parenteral Nutrition, Central) 1,000 ml .XX .Continue Order [facility] PRN Reason: Protocol Stop: 08/21/17 14:00 Ondansetron HCl (Zofran) Confirm Administered Dose 4 mg .ROUTE .STK-MED ONE Stop: 08/10/17 10:37 Ondansetron HCl (Zofran) Confirm Administered Dose 8 mg .ROUTE .STK-MED ONE Stop: 08/10/17 16:21 Ondansetron HCl (Zofran) Confirm Administered Dose 4 mg .ROUTE .STK-MED ONE Stop: 08/11/17 00:15 Ondansetron HCl (Zofran) Confirm Administered Dose 4 mg .ROUTE .STK-MED ONE Stop: 08/12/17 15:54 Ondansetron HCl (Zofran) Confirm Administered Dose 4 mg .ROUTE .STK-MED ONE Stop: 08/15/17 07:28 Petrolatum (Vaseline) 0 gm TOP ONETIME ONE Stop: 08/20/17 07:31 Last Admin: 08/20/17 09:43 Dose: 1 applic Propofol (Diprivan 20 Ml) Confirm Administered Dose 200 mg .ROUTE .STK-MED ONE Stop: 08/10/17 10:37 Propofol (Diprivan 20 Ml) Confirm Administered Dose 200 mg .ROUTE .STK-MED ONE Stop: 08/12/17 15:54 Propofol (Diprivan 20 Ml) Confirm Administered Dose 200 mg .ROUTE .STK-MED ONE Stop: 08/15/17 07:28 Propofol (Diprivan 20 Ml) Confirm Administered Dose 200 mg .ROUTE .STK-MED ONE Stop: 08/18/17 14:54 Propofol (Diprivan 20 Ml) Confirm Administered Dose 200 mg .ROUTE .STK-MED ONE Stop: 08/20/17 07:32 Propofol (Diprivan 20 Ml) Confirm Administered Dose 200 mg .ROUTE .STK-MED ONE Stop: 08/22/17 11:00 Rocuronium Graham (Zemuron) Confirm Administered Dose 50 mg .ROUTE .STK-MED ONE Stop: 08/10/17 10:37 Rocuronium Graham (Zemuron) Confirm Administered Dose 50 mg .ROUTE .STK-MED ONE Stop: 08/10/17 13:50 Rocuronium Graham (Zemuron) Confirm Administered Dose 50 mg .ROUTE .STK-MED ONE Stop: 08/11/17 00:15 Rocuronium Graham (Zemuron) Confirm Administered Dose 50 mg .ROUTE .STK-MED ONE Stop: 08/12/17 15:54 Rocuronium Graham (Zemuron) Confirm Administered Dose 50 mg .ROUTE .ST-MED ONE Stop: 08/15/17 07:28 Scopolamine (Transderm-Scop) 1.5 mg TOP ONETIME ONE Stop: 08/10/17 16:20 Last Admin: 08/10/17 17:23 Dose: 1.5 mg Succinylcholine Chloride (Quelicin) Confirm Administered Dose 200 mg .ROUTE .ST -MED ONE Stop: 08/10/17 10:37 Succinylcholine Chloride (Quelicin) Confirm Administered Dose 200 mg .ROUTE .STK -MED ONE Stop: 08/11/17 00:15 Succinylcholine Chloride (Quelicin) Confirm Administered Dose 200 mg .ROUTE .ST -MED ONE Stop: 08/12/17 15:54 Succinylcholine Chloride (Quelicin) Confirm Administered Dose 200 mg .ROUTE .STK -MED ONE Stop: 08/15/17 07:28 Vancomycin HCl (Vancomycin) 1 gm IV .PHARMACY TO DOSE DELANEY Stop: 08/12/17 09:00 - Exam Quality Assessment: No: Supplemental Oxygen General: Alert, Oriented, Cooperative, No Acute Distress Neck: Supple Lungs: Normal Respiratory Effort GI/Abdominal Exam: Soft, No Distention, Other (Wound vac in the central abdomen. Large area or skin irritation inferior and to the left of the vac. ) Extremities: No Pedal Edema Psy/Mental Status: Alert, Normal Affect - Problem List Review Problem List Initiated/Reviewed/Updated: Yes - My Orders Last 24 Hours: My Active Orders 08/24/17 09:33 Transfer Patient (Change bed) [ADT] Routine 08/24/17 09:45 Central TPN [Total Parenteral Nutrition, Central] 1,000 ml .XX .Continue Order 08/25/17 05:00 BASIC METABOLIC PANEL,BMP [CHEM] Timed CBC W/O DIFF,HEMOGRAM [HEME] Timed (1) MAGNESIUM [CHEM] Timed PHOSPHORUS [CHEM] Timed - Plan Plan:: ASSESSMENT AND RECOMMENDATIONS FEVER - fevers have resolved. Culture still negative. 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 Currently nothing by mouth and on TPN. -Postoperative cares per Dr. Keyes -Continue TPN ACUTE KIDNEY INJURY - kidney function has been improving. 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 -LR at 185 ml/hr -TPN as above -Additional Boluses as indicated based on intake and output balance -Continue to closely monitor urine output and renal function -Continue hydrocortisone HYPOKALEMIA - mild and improving with supplementation. HISTORY OF DEEP VEIN THROMBOSIS AND PULMONARY EMBOLISM - currently on systemic anticoagulation with enoxaparin. -Enoxaparin 90 mg subcutaneous every 12 hours -Plan to restart rivaroxaban when she is able to take oral medications TYPE 2 DIABETES MELLITUS - blood sugars have been well controlled with the addition of insulin to the TPN. -Continue insulin in TPN HYPERTENSION - blood pressures have been well-controlled. -Metoprolol 2.5 mg IV every 4 hours -Transition to oral medications when taking oral medications Kel Tabor MD
[2017-08-24] MEDS ORDERED: Central Total Parenteral Nutrition Bag SCH (09:45)
[2017-08-24] MEDS: diphenhydrAMINE 50 MG/ML SDV IVPUSH PRN (12:43)
[2017-08-24] MEDS: Pantoprazole 40 MG Vial IVPUSH SCH (16:12)
[2017-08-24] MEDS ORDERED: Fat Emulsion 100 ML IV ONE (18:00)
[2017-08-25] MEDS: Metoprolol Tartrate 5 MG/5 ML SDV IVPUSH SCH ×3 (01:30→09:50)
[2017-08-25] MEDS: Lactated Ringers 1,000 ML IV SCH ×2 (03:01→09:07)
[2017-08-25] MEDS: Hydrocortisone Sodium Succinate 100 MG/2 ML SDV IVPUSH SCH (05:14)
[2017-08-25] MEDS ORDERED: fentaNYL 100 MCG/2 ML SDV ONE (07:31)
[2017-08-25] MEDS ORDERED: Propofol 200 MG/20 ML SDV ONE (07:31)
[2017-08-25] MEDS ORDERED: Midazolam 1 MG/ML 2 ML SDV ONE (07:31)
[2017-08-25] MEDS: Enoxaparin 100 MG/1 ML Syringe SUBCUT SCH (08:11)
[2017-08-25] MEDS: LORazepam 2 MG/ML MDV IVPUSH PRN (08:12)
[2017-08-25] MEDS ORDERED: Magnesium Sulfate/Water 2 GM in Premix Bag 1 BAG IV ONE (09:00)
[2017-08-25] MEDS ORDERED: Potassium Chloride 40 MEQ in Premix Bag 1 BAG IV ONE (09:00)
[2017-08-25 09:52] VITALS: BP 155/72
--- NOTE | 2017-08-28 12:13 | PN ---
DATE OF SERVICE: 08/14/2017 SUBJECTIVE: The patient continues to do well. Pain is well controlled. No nausea, vomiting, shortness of breath, or chest pain. OBJECTIVE: VITAL SIGNS: Stable. CARDIOVASCULAR: Regular rhythm and rate. RESPIRATORY: Lungs are clear to auscultation bilaterally. ABDOMEN: Wound VAC is intact. ASSESSMENT: Open abdomen with fistula. PLAN: Continue same plan with every 3-4 day dressing changes. Still in conversation with [facility] for further recommendation and treatment. Hospitalist service will continue to monitor her with respect to electrolytes and TPN. As far as the TPN, continue same plan today. Jhonatan Keyes MD /[id number]
--- NOTE | 2017-08-28 12:16 | DISCH ---
SUMMARY OF HOSPITAL COURSE: This is a pleasant 61-year-old female who previously had an ostomy takedown. Unfortunately, the patient ended up on 07/10/2017 in the emergency room. 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 The patient was taken to the operating room on the and underwent an exploratory laparotomy. The patient was noted to have multiple cutaneous fistulas at that time. 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 The patient was taken back that night for bleeding issues and small artery was identified and suture ligated without difficulty. Over the next several weeks, the patient continued in the same state which was essentially a slow improvement in granulation. She was taken back for multiple wound VAC dressing changes approximately 3-4 days. During this part she continued to develop a complex additional cutaneous tissues which were also either dressed with a Louie catheter or closed primarily. The patient was subsequently transferred to [facility] on 08/24/2017. At that point her fistulas had been well controlled. Her wound VAC was functioning very well. Her kidney functions returned to complete normal. Her antibiotics had been discontinued and the patient was transferred to a general medical bed. Followup per [facility]. DISCHARGE MEDICATIONS: The patient was discharged on the same TPN medications she was here during the transfer. ACTIVITY: Limited to transfer only and reevaluation at [facility].
--- NOTE | 2017-10-02 23:21 | OR ---
DATE OF PROCEDURE: 08/15/2017 PROCEDURES PERFORMED: 1. Wound VAC exchange (01597). 2. Washout of bacterial peritonitis (80048). COMPLICATIONS: None. ASSISTANTS: None. ANESTHESIA: MAC/local. INDICATIONS: A pleasant 61-year-old female with significant fistula formations and ongoing complications related to this. The patient essentially has no abdominal wall at this point due to her extensive and complicated surgical history all related to diverticulitis attack greater than one year ago. RISKS: Risks, benefits, alternatives, and limitations including but not limited to infection, bleeding, and injury to abdominal structures were explained to the patient and wished to proceed. PROCEDURE IN DETAIL: The patient was placed in a supine position, and was prepped and draped. The previous wound VAC was removed. Some mild irritation again, but as previously described, slow and steady improvement. A Louie catheter was again placed within the fistula and a pursestring suture of 2-0 silk was used to control this. Normal saline was then used to thoroughly irrigate out the peritonitis. There was no evidence of worsening fistula. This was washed and dried with approximately 3 L. White petroleum jelly continues to be used, and the 2-cm border protected the periwound skin. Adaptic was placed over the bowel to prevent wound VAC injury. A silver sponge was then used at 75 mmHg pressure. This was overlaid with multiple plastic layers. The drainage tube for the fistula was again deflected superiorly. No leaks were noted. The patient tolerated the procedure well. Jhonatan Keyes MD /[id number]
--- NOTE | 2017-10-03 07:46 | OR ---
DATE OF PROCEDURE: 08/22/2017 PROCEDURES PERFORMED: 1. Wound VAC exchange (92315). 2. Washout of bacterial peritonitis. COMPLICATIONS: None. ASSISTANTS: None. ANESTHESIA: MAC. INDICATIONS: A pleasant 61-year-old female with ongoing fistula and open abdomen issues, requiring re-evaluation and washout of her peritonitis. RISKS: Risks, benefits, alternatives, and limitations including, but not limited to infection, bleeding, and injury to abdominal structures were explained to the patient, who wished to proceed. PROCEDURE IN DETAIL: The patient was placed in a supine position. The abdomen was prepped and draped. Previous wound VAC was removed. Some mild irritation with this, however, again continuously showing slow improvement. There is, slowly and steadily, granulation tissue forming. The fistula was noted with the Louie catheter containing this. The 2-0 silk was noted to have good control of this. Normal saline was used to wash the peritonitis out. This was with approximately 2 L of normal saline to decrease the peritoneal/bile load. White petrolatum gauze was then used with a 2-cm border to protect the skin surfaces. An Adaptic was placed over the bowel itself. A silver sponge was then used again at 75 mmHg pressure. This was overlaid with multiple plastic layers, and the drainage tube for the fistula was deflected superiorly. No leaks were noted. The patient tolerated the procedure well. Jhonatan Keyes MD /[id number]
== END 2017-08-25 10:45 | DRG 329 ==
LOC: JP.ED 09:42 → JP.SDS 10:41 → JP.ICU 16:03
PROVIDERS: ADMIT Surgery; ATTEND Surgery
PROC: 3E0G3GC Introduction of Other Therapeutic Substance into Upper GI, Percutaneous Approach (ICD-10-PCS; principal; 2017-08-10)
PROC: 0DB80ZX Excision of Small Intestine, Open Approach, Diagnostic (ICD-10-PCS; 2017-08-10)
PROC: 0WPG03Z Removal of Infusion Device from Peritoneal Cavity, Open Approach (ICD-10-PCS; 2017-08-10)
PROC: 02HV33Z Insertion of Infusion Device into Superior Vena Cava, Percutaneous Approach (ICD-10-PCS; 2017-08-10)
PROC: 2W13X6Z Compression of Abdominal Wall using Pressure Dressing (ICD-10-PCS; 2017-08-10)
PROC: 30233N1 Transfusion of Nonautologous Red Blood Cells into Peripheral Vein, Percutaneous Approach (ICD-10-PCS; 2017-08-10)
PROC: 04LY0ZZ Occlusion of Lower Artery, Open Approach (ICD-10-PCS; 2017-08-11)
PROC: 2W13X6Z Compression of Abdominal Wall using Pressure Dressing (ICD-10-PCS; 2017-08-11)
PROC: 30233N1 Transfusion of Nonautologous Red Blood Cells into Peripheral Vein, Percutaneous Approach (ICD-10-PCS; 2017-08-11)
PROC: 30233K1 Transfusion of Nonautologous Frozen Plasma into Peripheral Vein, Percutaneous Approach (ICD-10-PCS; 2017-08-11)
PROC: 0WJF0ZZ Inspection of Abdominal Wall, Open Approach (ICD-10-PCS; 2017-08-12)
PROC: 2W13X6Z Compression of Abdominal Wall using Pressure Dressing (ICD-10-PCS; 2017-08-12)
PROC: 30233N1 Transfusion of Nonautologous Red Blood Cells into Peripheral Vein, Percutaneous Approach (ICD-10-PCS; 2017-08-12)
PROC: 0DL80ZZ Occlusion of Small Intestine, Open Approach (ICD-10-PCS; 2017-08-18)
PROC: 02HV33Z Insertion of Infusion Device into Superior Vena Cava, Percutaneous Approach (ICD-10-PCS; 2017-08-18)
PROC: 2W13X6Z Compression of Abdominal Wall using Pressure Dressing (ICD-10-PCS; 2017-08-18)
PROC: 3E1M38Z Irrigation of Peritoneal Cavity using Irrigating Substance, Percutaneous Approach (ICD-10-PCS; 2017-08-20)
PROC: 2W13X6Z Compression of Abdominal Wall using Pressure Dressing (ICD-10-PCS; 2017-08-20)
PROC: 2W03X6Z Change Pressure Dressing on Abdominal Wall (ICD-10-PCS; 2017-08-22)
DX: K63.2 Fistula of intestine (principal); K65.8 Other peritonitis; K94.09 Other complications of colostomy; T86.821 Skin graft (allograft) (autograft) failure; N17.9 Acute kidney failure, unspecified; J44.9 Chronic obstructive pulmonary disease, unspecified; M06.9 Rheumatoid arthritis, unspecified; Z48.1 Encounter for planned postprocedural wound closure; D64.9 Anemia, unspecified; K66.0 Peritoneal adhesions (postprocedural) (postinfection); R50.9 Fever, unspecified; Z86.73 Personal history of transient ischemic attack (TIA), and cerebral infarction without residual deficits; Z86.718 Personal history of other venous thrombosis and embolism; Z86.711 Personal history of pulmonary embolism; E11.9 Type 2 diabetes mellitus without complications; I10 Essential (primary) hypertension; E66.01 Morbid (severe) obesity due to excess calories; Z68.29 Body mass index [BMI] 29.0-29.9, adult; Z95.5 Presence of coronary angioplasty implant and graft; F32.9 Major depressive disorder, single episode, unspecified; F41.9 Anxiety disorder, unspecified; K21.9 Gastro-esophageal reflux disease without esophagitis; I25.2 Old myocardial infarction; E78.00 Pure hypercholesterolemia, unspecified; Z86.74 Personal history of sudden cardiac arrest; H54.7 Unspecified visual loss; Z87.01 Personal history of pneumonia (recurrent); L81.8 Other specified disorders of pigmentation; Z96.619 Presence of unspecified artificial shoulder joint; Z88.5 Allergy status to narcotic agent; Z79.01 Long term (current) use of anticoagulants; Z91.013 Allergy to seafood
CPT/HCPCS: 36415; 36569; 80048; 83605; 85025; 86850; 86900; 86901; 86920 ×4; 86922 ×4; 88304; 96365; 99285 ×2; A9270; J0330; J1100; J1642; J2185; J2405; J2543; J2704; J2710; J3010 ×2; J7040; J7120 ×2; 36430; 71010; 71010-26; 74000; 74000-26; 74176; 74176-26; 80053; 80202; 81001; 82553; 82962; 83735; 83880; 84100; 84484; 85018; 85027; 87040; 87070; 87075; 87086; 87205; 93971-26; 93971-RT; 97605; C1894; C9113; J1200; J1650; J1720; J1885; J1956; J2020; J2060; J2250; J3370; J3410; J3475; J3480; J3490; J7030; J7050; P9016; P9017; P9047

== ENCOUNTER 2017-11-04 12:13 | Inpatient (IN) | payer MEDICARE, MEDICAID ==
[2017-11-04] MEDS ORDERED: Bisacodyl 5 MG Tab PO PRN (14:38)
[2017-11-04] MEDS ORDERED: Docusate Sodium 100 MG Cap PO PRN (14:38)
[2017-11-04] MEDS ORDERED: Albuterol/Ipratropium 3.0-0.5 MG/3 ML Neb Soln NEB PRN (14:41)
[2017-11-04] MEDS ORDERED: Acetaminophen 650 MG Supp RECTAL PRN (14:41)
[2017-11-04] MEDS ORDERED: Acetaminophen 325 MG Tab PO PRN (14:41)
[2017-11-04] MEDS ORDERED: Fluticasone Propionate Nasal Spray 16 GM Bottle NASLF PRN (14:41)
[2017-11-04] MEDS: Sodium Chloride 0.9% 1,000 ML IV SCH ×2 (17:10→21:31)
[2017-11-04] MEDS: traMADol 50 MG Tab PO PRN (17:38)
[2017-11-04] MEDS ORDERED: MVI, Adult with Vitamin K 10 ML, Chromium/Copper/Mang/Selen/Zn 1 ML in AA 5%/Calcium/D1... IV ONE ×3 (21:00)
[2017-11-04] MEDS ORDERED: Non-Formulary Medication 1 EACH IV SCH (21:00)
[2017-11-04] MEDS: Mirtazapine 15 MG Tab PO SCH (21:33)
[2017-11-04] MEDS: Pantoprazole 40 MG Tab.CR PO SCH (21:33)
[2017-11-04] MEDS: traZODone 50 MG Tab PO PRN (21:33)
[2017-11-04] MEDS: Diazepam 5 MG Tab PO PRN (21:34)
[2017-11-04] MEDS: Zolpidem 5 MG Tab PO PRN (21:34)
[2017-11-04] MEDS: Metoprolol Tartrate 25 MG Tab PO SCH (21:39)
[2017-11-05] MEDS: Sodium Chloride 0.9% 1,000 ML IV SCH ×3 (01:45→21:14)
[2017-11-05] MEDS: Fenofibrate,Micronized 67 MG Cap PO SCH (08:56)
[2017-11-05] MEDS: Metoprolol Tartrate 25 MG Tab PO SCH ×2 (08:56→21:11)
[2017-11-05] MEDS: Venlafaxine 75 MG Cap.ER PO SCH (08:56)
[2017-11-05] MEDS: Diazepam 5 MG Tab PO PRN ×2 (09:13→19:33)
[2017-11-05] MEDS: traMADol 50 MG Tab PO PRN ×2 (09:13→19:30)
[2017-11-05] MEDS ORDERED: Central Total Parenteral Nutrition Bag IV SCH (11:15)
[2017-11-05] MEDS ORDERED: Sodium Chloride 0.9% 1,000 ML IV PRN (11:49)
[2017-11-05] MEDS ORDERED: Sodium Chloride 0.9% 1,000 ML IV SCH (12:00)
[2017-11-05] MEDS: Non-Formulary Medication 1 EACH IV SCH (13:12)
[2017-11-05] MEDS: AA 5%/Calcium/D15W/Lytes 2,000 ML with MVI, Adult with Vitamin K 10 ML, Chromium/Copper... IV SCH ×3 (14:33)
--- NOTE | 2017-11-05 14:42 | HP ---
REASON FOR ADMISSION: Multiple medical issues. HISTORY OF PRESENT ILLNESS: This is a 61-year-old female who has quite an extensive abdominal history. The summation is that this started approximately 1 to 2 years ago, where the patient had diverticulitis, ended up getting an ostomy and was hospitalized in the intensive care unit for approximately 5 months in [place]. This was associated with, which she is not quite sure of but sounds like, history of sepsis, prolonged shock, and significant resuscitations. Eventually, she was sent to a retirement and left with an open abdomen. The patient underwent a split-thickness skin grafting, and this was allowed to heal for approximately 6 months. An ostomy takedown was then commenced next. However, unfortunately, she developed an enterocutaneous fistula at that time. The patient was then sent to [facility], where she underwent care for her fistulas, of which she ended up getting 3. In addition, the patient had an iatrogenic injury to her common bile duct. At present, the patient has 3 enterocutaneous fistulas which are controlled, and there is also a pressure ulcer controlled. She is on TPN and is being essentially managed with respect to these issues. PAST MEDICAL HISTORY: Extensive, but includes COPD, pulmonary embolism, pneumonia, shortness of breath, diverticulosis, GERD, history of ischemic bowel, diverticulitis, dysfunctional uterine bleeding, C-sections x3, hysterectomy, back pain, degenerative joint disease, rheumatoid arthritis, concussion, stroke, migraines, vertigo, anxiety, depression, morbid obesity, chronic anticoagulation, parasitic toxoplasmosis, history of chicken pox, measles, coronary stenting, history of multiple angioplasties, appendectomy, cholecystectomy, colonoscopies, colostomy as described above, abdominal hernias, split- thickness skin grafts, and other procedures and comorbidities not listed here. SOCIAL HISTORY: She lives in the [facility] and has family present in the area. REVIEW OF SYSTEMS: GENERAL: The patient is actually upbeat and appropriate. CONSTITUTIONAL: No fevers or chills. RESPIRATORY: No shortness of breath. She is not on oxygen. CARDIOVASCULAR: History of myocardial infarctions, as above. GENITOURINARY: No concerns. GASTROINTESTINAL: The patient has the complex history as described above, but essentially she is n.p.o. with very limited p.o. intake and is on TPN. NEUROLOGIC: No headaches or concerns at this time. PSYCH: The patient is on depression medications, but seems to be appropriate for her condition. Remainder of review of systems was reviewed and is negative. PHYSICAL EXAMINATION: VITAL SIGNS: Temperature 98.6, blood pressure 117/69, pulse 100, respirations 15, and 94% on room air. HEENT: Pupils are equal. NECK: Supple. LUNGS: Clear. ABDOMEN: Complex fistula bag noted. No rebound. No guarding. EXTREMITIES: Full range of motion. NEUROLOGIC: Oriented x3. PSYCH: No gross depression. LABORATORY RESULTS: Show a basic metabolic panel, except for slightly high glucose, is essentially normal. IMAGING: I did review the relevant imaging. ASSESSMENT: Abdominal fistulas. PLAN: The patient will be admitted to [facility] bed status. Our objective is to change her to an outpatient. We will continue to work with Pharmacy and TPN. TPN is also a critical issue, as we have shortage/lack of availability. Nonetheless, we will meet on Friday with the [facility] nurses and hospital nurses to change her dressings and work on potential home on Friday. Jhonatan Keyes MD /[id number]
[2017-11-05] MEDS: traZODone 50 MG Tab PO PRN (21:04)
[2017-11-05] MEDS: Zolpidem 5 MG Tab PO PRN (21:04)
[2017-11-05] MEDS: Pantoprazole 40 MG Tab.CR PO SCH (21:05)
[2017-11-05] MEDS: Mirtazapine 15 MG Tab PO SCH (21:05)
[2017-11-06] MEDS: Non-Formulary Medication 1 EACH IV SCH ×2 (07:41→08:27)
[2017-11-06] MEDS: Venlafaxine 75 MG Cap.ER PO SCH (08:50)
[2017-11-06] MEDS: Metoprolol Tartrate 25 MG Tab PO SCH ×2 (08:51→20:53)
[2017-11-06] MEDS: Fenofibrate,Micronized 67 MG Cap PO SCH (08:51)
[2017-11-06] MEDS: Sodium Chloride 0.9% 1,000 ML IV SCH ×2 (09:20→21:41)
[2017-11-06] MEDS: Diazepam 5 MG Tab PO PRN ×3 (09:30→20:59)
[2017-11-06] MEDS: traMADol 50 MG Tab PO PRN ×2 (09:30→16:12)
[2017-11-06] MEDS: AA 5%/Calcium/D15W/Lytes 2,000 ML with MVI, Adult with Vitamin K 10 ML, Chromium/Copper... IV SCH ×3 (14:34)
[2017-11-06] MEDS: Pantoprazole 40 MG Tab.CR PO SCH (20:53)
[2017-11-06] MEDS: Mirtazapine 15 MG Tab PO SCH (20:53)
[2017-11-06] MEDS: traZODone 50 MG Tab PO PRN (20:58)
[2017-11-06] MEDS: Zolpidem 5 MG Tab PO PRN (20:59)
[2017-11-06] MEDS: FAT EMUL/SOY/MCT/OLIV/FISH OIL 100 ML IV SCH (23:02)
[2017-11-07] MEDS: FAT EMUL/SOY/MCT/OLIV/FISH OIL 100 ML IV SCH ×2 (00:11→17:25)
[2017-11-07] MEDS: Sodium Chloride 0.9% 1,000 ML IV SCH (09:25)
[2017-11-07] MEDS: Venlafaxine 75 MG Cap.ER PO SCH (10:54)
[2017-11-07] MEDS: Fenofibrate,Micronized 67 MG Cap PO SCH (10:54)
[2017-11-07] MEDS: Metoprolol Tartrate 25 MG Tab PO SCH ×2 (10:55→20:46)
[2017-11-07] MEDS: Diazepam 5 MG Tab PO PRN ×2 (10:57→20:55)
[2017-11-07] MEDS: Morphine 2 MG/ML Syringe IVPUSH PRN ×2 (11:06→14:47)
[2017-11-07] MEDS ORDERED: Central TPN 1 ML IV SCH (12:00)
[2017-11-07] MEDS: AA 5%/Calcium/D15W/Lytes 2,000 ML with MVI, Adult with Vitamin K 10 ML, Chromium/Copper... IV SCH ×3 (14:37)
[2017-11-07] MEDS: Pantoprazole 40 MG Tab.CR PO SCH (20:46)
[2017-11-07] MEDS: Mirtazapine 15 MG Tab PO SCH (20:47)
[2017-11-07] MEDS: traZODone 50 MG Tab PO PRN (20:51)
[2017-11-07] MEDS: Zolpidem 5 MG Tab PO PRN (20:51)
[2017-11-08] MEDS: Sodium Chloride 0.9% 1,000 ML IV SCH ×2 (02:56→20:57)
[2017-11-08] MEDS: FAT EMUL/SOY/MCT/OLIV/FISH OIL 100 ML IV SCH ×2 (07:36→23:49)
[2017-11-08] MEDS: Venlafaxine 75 MG Cap.ER PO SCH (09:46)
[2017-11-08] MEDS: Metoprolol Tartrate 25 MG Tab PO SCH ×2 (09:50→20:43)
[2017-11-08] MEDS: Fenofibrate,Micronized 67 MG Cap PO SCH (09:51)
[2017-11-08] MEDS: Diazepam 5 MG Tab PO PRN ×2 (10:00→20:48)
[2017-11-08] MEDS: Morphine 2 MG/ML Syringe IVPUSH PRN ×3 (10:01→19:36)
[2017-11-08] MEDS: Bacitracin Oint 1 GM U/D Packet TOP SCH (14:01)
[2017-11-08] MEDS: AA 5%/Calcium/D15W/Lytes 2,000 ML with MVI, Adult with Vitamin K 10 ML, Chromium/Copper... IV SCH ×3 (14:10)
[2017-11-08] MEDS: Pantoprazole 40 MG Tab.CR PO SCH (20:43)
[2017-11-08] MEDS: Mirtazapine 15 MG Tab PO SCH (20:44)
[2017-11-08] MEDS: Zolpidem 5 MG Tab PO PRN (20:48)
[2017-11-08] MEDS: traZODone 50 MG Tab PO PRN (20:49)
[2017-11-09] MEDS: Sodium Chloride 0.9% 1,000 ML IV SCH (08:00)
[2017-11-09] MEDS: Morphine 2 MG/ML Syringe IVPUSH PRN ×3 (09:23→19:27)
[2017-11-09] MEDS: Metoprolol Tartrate 25 MG Tab PO SCH ×2 (09:24→21:01)
[2017-11-09] MEDS: Fenofibrate,Micronized 67 MG Cap PO SCH (09:24)
[2017-11-09] MEDS: Venlafaxine 75 MG Cap.ER PO SCH (09:24)
[2017-11-09] MEDS: Diazepam 5 MG Tab PO PRN ×2 (09:25→21:01)
[2017-11-09] MEDS: Bacitracin Oint 1 GM U/D Packet TOP SCH (09:35)
[2017-11-09] MEDS ORDERED: Scopolamine 1.5 MG Transdermal Patch TOP PRN (14:03)
[2017-11-09] MEDS: AA 5%/Calcium/D15W/Lytes 2,000 ML with MVI, Adult with Vitamin K 10 ML, Chromium/Copper... IV SCH ×3 (14:15)
[2017-11-09] MEDS: Ondansetron 4 MG/2 ML SDV IVPUSH PRN (14:20)
[2017-11-09] MEDS: FAT EMUL/SOY/MCT/OLIV/FISH OIL 100 ML IV SCH (16:50)
[2017-11-09] MEDS: Zolpidem 5 MG Tab PO PRN (21:01)
[2017-11-09] MEDS: traZODone 50 MG Tab PO PRN (21:01)
[2017-11-09] MEDS: Mirtazapine 15 MG Tab PO SCH (21:02)
[2017-11-09] MEDS: Pantoprazole 40 MG Tab.CR PO SCH (21:02)
[2017-11-10] MEDS: Morphine 2 MG/ML Syringe IVPUSH PRN ×4 (02:43→20:04)
[2017-11-10] MEDS: Sodium Chloride 0.9% 1,000 ML IV SCH ×2 (03:27→21:03)
[2017-11-10] MEDS: Ondansetron 4 MG/2 ML SDV IVPUSH PRN ×4 (05:11→20:04)
[2017-11-10] MEDS: FAT EMUL/SOY/MCT/OLIV/FISH OIL 100 ML IV SCH (08:02)
[2017-11-10] MEDS ORDERED: Ergocalciferol (Vitamin D2) 50,000 Unit Cap PO SCH (09:00)
[2017-11-10] MEDS ORDERED: VITAMIN D3 50000 UNIT PO SCH (09:00)
[2017-11-10] MEDS: Metoprolol Tartrate 25 MG Tab PO SCH ×2 (09:16→21:02)
[2017-11-10] MEDS: Bacitracin Oint 1 GM U/D Packet TOP SCH (11:18)
[2017-11-10] MEDS: Diazepam 5 MG Tab PO PRN ×2 (11:19→20:04)
[2017-11-10] MEDS: Fenofibrate,Micronized 67 MG Cap PO SCH (11:19)
[2017-11-10] MEDS: SCOPALAMINE PATCH CHECK TOP SCH (11:19)
[2017-11-10] MEDS: Venlafaxine 75 MG Cap.ER PO SCH (11:19)
[2017-11-10] MEDS: Piperacillin/Tazobactam/Dext 4.5 GM in Premix Bag 1 BAG IV SCH ×2 (13:59→21:07)
[2017-11-10] MEDS: AA 5%/Calcium/D15W/Lytes 2,000 ML with MVI, Adult with Vitamin K 10 ML, Chromium/Copper... IV SCH ×3 (14:51)
--- NOTE | 2017-11-10 16:37 | CR ---
Chest 1V Frontal INDICATION: tachycardia COMPARISON: 08/18/2017 FINDINGS: AP portable chest. Right upper extremity PICC line is now in place with tip in the mid SVC in excellent position. Mild c ardiomegaly unchanged. No infiltrates or pleural effusions. No definite signs of pulmonary edema. Hea rt size normal. Left shoulder arthroplasty.
[2017-11-10] MEDS: Mirtazapine 15 MG Tab PO SCH (21:02)
[2017-11-10] MEDS: Pantoprazole 40 MG Tab.CR PO SCH (21:02)
[2017-11-10] MEDS: traZODone 50 MG Tab PO PRN (21:07)
[2017-11-10] MEDS: Zolpidem 5 MG Tab PO PRN (21:07)
[2017-11-11] MEDS: FAT EMUL/SOY/MCT/OLIV/FISH OIL 100 ML IV SCH ×2 (00:30→15:56)
[2017-11-11] MEDS: Piperacillin/Tazobactam/Dext 4.5 GM in Premix Bag 1 BAG IV SCH ×3 (05:14→21:18)
[2017-11-11] MEDS: Venlafaxine 75 MG Cap.ER PO SCH (09:03)
[2017-11-11] MEDS: Fenofibrate,Micronized 67 MG Cap PO SCH (09:04)
[2017-11-11] MEDS: Metoprolol Tartrate 25 MG Tab PO SCH ×2 (09:05→21:18)
[2017-11-11] MEDS: SCOPALAMINE PATCH CHECK TOP SCH (09:06)
[2017-11-11] MEDS: Bacitracin Oint 1 GM U/D Packet TOP SCH (09:10)
[2017-11-11] MEDS: Ondansetron 4 MG/2 ML SDV IVPUSH PRN ×3 (09:10→17:35)
[2017-11-11] MEDS: Diazepam 5 MG Tab PO PRN (09:11)
[2017-11-11] MEDS: Sodium Chloride 0.9% 1,000 ML IV SCH ×2 (09:21→21:25)
[2017-11-11] MEDS: Morphine 2 MG/ML Syringe IVPUSH PRN ×3 (14:04→20:18)
[2017-11-11] MEDS: AA 5%/Calcium/D15W/Lytes 2,000 ML with MVI, Adult with Vitamin K 10 ML, Chromium/Copper... IV SCH ×3 (14:57)
[2017-11-11] MEDS ORDERED: [UNRECOGNIZED DRUG - REMARK] ONE (16:30)
[2017-11-11] MEDS: Mirtazapine 15 MG Tab PO SCH (21:18)
[2017-11-11] MEDS: Pantoprazole 40 MG Tab.CR PO SCH (21:18)
[2017-11-11] MEDS: Zolpidem 5 MG Tab PO PRN (21:19)
[2017-11-11] MEDS: traZODone 50 MG Tab PO PRN (21:19)
[2017-11-12] MEDS: Piperacillin/Tazobactam/Dext 4.5 GM in Premix Bag 1 BAG IV SCH (05:06)
[2017-11-12] MEDS ORDERED: Vancomycin 1.2 GM in Sodium Chloride 0.9% 250 ML IV SCH (08:00)
[2017-11-12] MEDS: FAT EMUL/SOY/MCT/OLIV/FISH OIL 100 ML IV SCH (08:19)
[2017-11-12] MEDS: Bacitracin Oint 1 GM U/D Packet TOP SCH (08:50)
[2017-11-12] MEDS: Venlafaxine 75 MG Cap.ER PO SCH (08:51)
[2017-11-12] MEDS: Fenofibrate,Micronized 67 MG Cap PO SCH (08:52)
[2017-11-12] MEDS: Metoprolol Tartrate 25 MG Tab PO SCH (08:53)
[2017-11-12] MEDS: SCOPALAMINE PATCH CHECK TOP SCH (08:56)
[2017-11-12 08:57] VITALS: BP 105/59
--- NOTE | 2017-11-23 09:56 | DISCH ---
This is discharge summary from swing bed to acute care. SUMMARY OF HOSPITAL COURSE: A 62-year-old female who was admitted from [facility] with complex enterocutaneous wounds with fistulas. The patient did well in swing bed; however, she had a moderate-grade fever, and will be subsequently transferred to acute care status. Of note, the patient's room, location, status with respect to med/surg has not changed, just the acuteness of her care. In addition, Hospice will be consulted. FOLLOWUP: Not applicable. The patient is not being discharged. ACTIVITY: As tolerated. MEDICATIONS: No changes. ADDITIONAL CONSULTATIONS DURING SWING BED STATUS: None.
== END 2017-11-12 09:00 | DRG 395 ==
LOC: JP.MS 14:31
PROVIDERS: ADMIT Surgery; ATTEND Surgery
DX: K63.2 Fistula of intestine (principal); E87.6 Hypokalemia; K57.90 Diverticulosis of intestine, part unspecified, without perforation or abscess without bleeding; Z86.711 Personal history of pulmonary embolism; J44.9 Chronic obstructive pulmonary disease, unspecified; K21.9 Gastro-esophageal reflux disease without esophagitis; M06.9 Rheumatoid arthritis, unspecified; F41.9 Anxiety disorder, unspecified; F32.9 Major depressive disorder, single episode, unspecified; Z86.73 Personal history of transient ischemic attack (TIA), and cerebral infarction without residual deficits; Z79.01 Long term (current) use of anticoagulants; Z95.5 Presence of coronary angioplasty implant and graft; Z93.1 Gastrostomy status; R50.9 Fever, unspecified
CPT/HCPCS: 36415; 71045; 71045-26; 80048; 80053; 81001; 82150; 83690; 83735; 84100; 84478; 85025; 85027; 97110-GP; 97161-GP; 97530-GP; 97535-GP; A9270-GY; C1751; J1642; J2270; J2405; J2543; J3370; J7040; J7050

== ENCOUNTER 2017-11-12 09:00 | Inpatient (IN) | payer MEDICARE, MEDICAID ==
[2017-11-12] MEDS: Sodium Chloride 0.9% 1,000 ML IV SCH ×2 (09:50→22:10)
[2017-11-12] MEDS ORDERED: Acetaminophen 650 MG Supp RECTAL PRN (10:20)
[2017-11-12] MEDS ORDERED: Bisacodyl 5 MG Tab PO PRN (10:21)
[2017-11-12] MEDS ORDERED: Albuterol/Ipratropium 3.0-0.5 MG/3 ML Neb Soln NEB PRN (10:21)
[2017-11-12] MEDS ORDERED: Docusate Sodium 100 MG Cap PO PRN (10:23)
[2017-11-12] MEDS ORDERED: Scopolamine 1.5 MG Transdermal Patch TOP PRN (10:28)
[2017-11-12] MEDS ORDERED: traMADol 50 MG Tab PO PRN (10:29)
[2017-11-12] MEDS: Diazepam 5 MG Tab PO PRN (10:53)
[2017-11-12] MEDS: Ondansetron 4 MG/2 ML SDV IVPUSH PRN ×2 (10:53→16:10)
[2017-11-12] MEDS ORDERED: Potassium Chloride 40 MEQ in Premix Bag 1 BAG IV ONE (11:00)
[2017-11-12] MEDS: Morphine 2 MG/ML Syringe IVPUSH PRN ×2 (11:08→13:21)
[2017-11-12] MEDS: Bacitracin Oint 1 GM U/D Packet TOP SCH (12:52)
--- NOTE | 2017-11-12 13:11 | PCM.CONS ---
H&P History of Present Illness - General Date of Service: 11/12/17 Admit Problem/Dx: Admission Diagnosis/Problem Admission Diagnosis/Problem Fistula of intestine Source of Information: Patient, Provider History Limitations: Reports: No Limitations - History of Present Illness Initial Comments - Free Text/Narative: Chinyere was transferred to [facility] from the [facility] on swing bed status for TPN teaching and additional complex wound care management with multiple enterocutaneous fistulas and an open abdominal wound. I was asked to see her today by Dr. Keyes regarding persistent white blood cell count elevation, nausea and right upper quadrant abdominal pain. She was made an inpatient today after developing the pain and being started on antibiotics. She reports onset of moderately severe sharp right upper quadrant abdominal pain. The pain is made worse with pressure as well as deep respiration. Pain medications have helped some. She has had episodes of nausea over the past few days as well as some episodes of vomiting. There has been no significant change in the output from her fistulas or the T-tube that is in place in the common bile duct. She has had low-grade temperature elevations. White blood cell count has trended down from a few days ago. She feels the pain and symptoms are similar to when her liver was infected while she was hospitalized at the [facility]. - Related Data Allergies/Adverse Reactions: Allergies Allergy/AdvReac Type Severity Reaction Status Date / Time shellfish derived Allergy Severe Anaphylactic Verified 08/10/17 10:27 Shock oxycodone HCl Allergy Hives Verified 08/10/17 10:27 [From OxyContin] Home Medications: Home Meds Omeprazole 40 mg PO BEDTIME 10/28/14 [History] traZODone 100 mg PO BEDTIME PRN 07/03/16 [History] Zolpidem [Ambien] 5 mg PO BEDTIME PRN 05/20/17 [History] Albuterol/Ipratropium [DuoNeb 3.0-0.5 MG/3 ML] 3 ml NEB Q4H PRN 07/16/17 [ History] Diazepam [Valium] 1 - 1.5 tab PO TID PRN 07/16/17 [History] Acetaminophen [Tylenol] 650 mg RECTAL Q6H PRN 11/04/17 [History] Cholecalciferol (Vitamin D3) [Vitamin D] 50,000 unit PO WEEKLY 11/04/17 [History ] Fenofibrate Nanocrystallized [Fenofibrate] 145 mg PO DAILY 11/04/17 [History] Metoprolol Tartrate [Lopressor] 25 mg PO Q12HR 11/04/17 [History] Mirtazapine [Remeron] 15 mg PO BEDTIME 11/04/17 [History] Venlafaxine [Effexor XR] 300 mg PO DAILY 11/04/17 [History] traMADol [Ultram] 25 mg PO Q6H PRN 11/04/17 [History] Past Medical History HEENT History: Reports: Impaired Vision Other HEENT History: wears glasses Cardiovascular History: Reports: Blood Clots/VTE/DVT, High Cholesterol, Hypertension, CA, Prior Cardiac Arrest, SOB on Exertion, Syncope Respiratory History: Reports: COPD, PE, Pneumonia, Recurrent, SOB Gastrointestinal History: Reports: Chronic Diarrhea, Diverticulosis, GERD, Other (See Below) Other Gastrointestinal History: Diverticulitis, ischemic bowel; dysphagia. fistula of colon Genitourinary History: Reports: None RESEARCH STUDY ASSISTANT History: Reports: Dysfunctional Uterine Bleeding, Other OB/BYN History: hysterectomy and c-sections X3 Musculoskeletal History: Reports: Back Pain, Chronic, RA Other Musculoskeletal History: DJD Neurological History: Reports: Concussion, CVA, Migraines, Vertigo Psychiatric History: Reports: Anxiety, Depression Endocrine/Metabolic History: Reports: Obesity/BMI 30+, Vitamin D Deficiency Hematologic History: Reports: Anticoagulation Therapy, Other (See Below) Other Hematologic History: parasitic toxoplasmosis Immunologic History: Reports: Immunosuppression Other Immunologic History: " Not very good" Immune system Dermatologic History: Reports: Eczema, Seborrheic Dermatitis Other Dermatologic History: tattoos on both arms - Infectious Disease History Infectious Disease History: Reports: Chicken Pox, Measles Other Infectious Disease History: unable to obtain - Past Surgical History HEENT Surgical History: Reports: Naso-Sinus Surgery Cardiovascular Surgical History: Reports: Coronary Artery Stent, Percutaneous Transluminal Angioplasty GI Surgical History: Reports: Appendectomy, Cholecystectomy, Colon, Colonoscopy , Colostomy, EGD, Hernia, Abdominal, Other (See Below) Other GI Surgeries/Procedures: Take down of colostomy Female Surgical History: Reports: Breast Biopsy, Section, Hysterectomy, Salpingo-Oophorectomy Musculoskeletal Surgical History: Reports: Shoulder Replacement Dermatological Surgical History: Reports: Skin Graft Social & Family History - Family History Family Medical History: Noncontributory Cardiac: Reports: Heart Failure GI: Reports: Irritable Bowel Syndrome Neurological: Reports: CVA Endocrine/Metabolic: Reports: Hypothyroidism Dermatologic: Reports: Eczema - Tobacco Use Smoking Status *Q: Former Smoker Years of Tobacco use: 25 Packs/Tins Daily: 0.2 Used Tobacco, but Quit: Yes Month Tobacco Last Used: 08/2016 Second Hand Smoke Exposure: No - Caffeine Use Caffeine Use: Reports: None Other Caffeine Use: none since end of JUN 2017 - Alcohol Use Days Per Week of Alcohol Use: 0 - Recreational Drug Use Recreational Drug Use: No Drug Use in Last 12 Months: No H&P Review of Systems - Review of Systems: Review Of Systems: See Below Free Text/Narrative: A complete 12 point review of systems was obtained. Pertinent positives and negatives are noted in the history of present illness. All other systems were reviewed and were negative except as noted. Exam - Exam Exam: See Below - Exam Quality Assessment: No: Supplemental Oxygen General: Alert, Oriented, Cooperative, Mild Distress HEENT: Conjunctiva Clear, Mucosa Moist & [place]. No: Scleral Icterus Neck: Supple, Trachea Midline. No: Lymphadenopathy Lungs: Clear to Auscultation, Normal Respiratory Effort Cardiovascular: Regular Rhythm, Tachycardia. No: Systolic Murmur GI/Abdominal Exam: Normal Bowel Sounds, Soft, Guarding (mild), Tender (RUQ), Other (large open abdominal wound covered with clear appliance. ) Extremities: No Pedal Edema. No: Increased Warmth Skin: Warm, Dry Neuro Extensive - Mental Status: Alert, Oriented x3, Nl Response to Commands Neuro Extensive - Motor, Sensory, Reflexes: No: Dysarthria, Abnormal Motor, Tremor Psychiatric: Alert, Normal Affect - Patient Data Imaging Impressions Last 24 hrs: CT scan is pending Consult PN Assessment/Plan Procedures: Procedures AIRWAY INHALATION TREATMENT (10/28/14) ASSAY OF ACETAMINOPHEN (05/22/14) ASSAY OF CK (CPK) (10/18/15) ASSAY OF ETHANOL (05/22/14) ASSAY OF LACTIC ACID (08/10/17) ASSAY OF LIPASE (07/23/16) ASSAY OF MAGNESIUM (08/10/17) ASSAY OF NATRIURETIC PEPTIDE (08/10/17) ASSAY OF PHOSPHORUS (08/10/17) ASSAY OF SALICYLATE (05/22/14) ASSAY OF TROPONIN QUANT (08/10/17) ASSAY OF VANCOMYCIN (08/10/17) BLEEDING TIME TEST (07/25/17) BLOOD CULTURE FOR BACTERIA (08/10/17) BLOOD GASES ANY COMBINATION (07/23/16) BLOOD TRANSFUSION SERVICE (08/10/17) BLOOD TYPING SEROLOGIC ABO (08/10/17) BLOOD TYPING SEROLOGIC RH(D) (08/10/17) C DIFF AMPLIFIED PROBE (07/25/17) C-REACTIVE PROTEIN (07/03/16) CHEST X-RAY 1 VIEW FRONTAL (08/10/17) CHEST X-RAY 2VW FRONTAL&LATL (07/25/17) COMP SCREEN MAMMOGRAM ADD-ON (03/01/15) COMPATIBILITY TEST ANTIGLOB (08/10/17) COMPATIBILITY TEST SPIN (08/10/17) COMPLETE CBC AUTOMATED (08/10/17) COMPLETE CBC W/AUTO DIFF WBC (08/10/17) COMPREHEN METABOLIC PANEL (08/10/17) CREATINE MB FRACTION (08/10/17) CT ABD & PELV W/CONTRAST (07/25/17) CT ABD & PELVIS W/O CONTRAST (08/10/17) CT ANGIOGRAPHY CHEST (07/23/16) CT HEAD/BRAIN W/O DYE (01/03/15) CT THORAX W/O DYE (04/19/15) CULTR BACTERIA EXCEPT BLOOD (08/10/17) CULTURE OTHR SPECIMN AEROBIC (08/10/17) CULTURE SCREEN ONLY (12/12/14) EGD BIOPSY SINGLE/MULTIPLE (12/12/14) ELECTROCARDIOGRAM TRACING (05/20/17) EMERGENCY DEPT VISIT (08/10/17) EMERGENCY DEPT VISIT (08/07/17) EMERGENCY DEPT VISIT (01/31/17) EMERGENCY DEPT VISIT (03/28/16) EMERGENCY DEPT VISIT (02/09/16) EMERGENCY DEPT VISIT (11/13/15) EMERGENCY DEPT VISIT (10/18/15) EMERGENCY DEPT VISIT (08/16/15) EMERGENCY DEPT VISIT (06/26/15) EMERGENCY DEPT VISIT (10/28/14) EMERGENCY DEPT VISIT (07/31/14) EMERGENCY DEPT VISIT (06/23/14) EMERGENCY DEPT VISIT (05/22/14) EVALUATION OF WHEEZING (11/28/14) EXTRACRANIAL BILAT STUDY (06/17/17) EXTREMITY STUDY (08/10/17) FIBRIN DEGRADATION QUANT (06/26/15) GLUCOSE BLOOD TEST (08/10/17) HEMOGLOBIN (08/10/17) HYDRATE IV INFUSION ADD-ON (06/23/14) HYDRATION IV INFUSION INIT (05/22/14) INJECT SPINE LUMBAR/SACRAL (06/05/16) INJECT TRIGGER POINTS 3/> (06/05/16) INSERT PICC CATH (08/10/17) MANUAL THERAPY 1/> REGIONS (02/05/16) MEASURE BLOOD OXYGEN LEVEL (07/25/17) METABOLIC PANEL TOTAL CA (08/10/17) MRI BRAIN STEM W/O & W/DYE (01/11/15) MRI JOINT UPR EXTREM W/O DYE (05/29/15) MRI LUMBAR SPINE W/O DYE (06/02/14) MRI NECK SPINE W/O DYE (03/01/15) NEG PRESS WOUND TX </=50 CM (08/10/17) NEUROMUSCULAR REEDUCATION (02/05/16) OBSERV/HOSP SAME DATE (05/22/14) OT EVALUATION (03/24/15) OVA AND PARASITES SMEARS (07/25/17) PROTHROMBIN TIME (02/09/16) PT EVALUATION (02/05/16) RBC ANTIBODY SCREEN (08/10/17) ROUTINE VENIPUNCTURE (08/10/17) SKIN SPLT GRFT T/A/L ADD-ON (11/28/16) SKIN SPLT GRFT TRNK/ARM/LEG (11/28/16) SMEAR COMPLEX STAIN (07/25/17) SMEAR GRAM STAIN (08/10/17) THER/PROPH/DIAG INJ IV PUSH (07/03/16) THER/PROPH/DIAG INJ SC/IM (11/13/15) THER/PROPH/DIAG IV INF INIT (08/10/17) THROMBOPLASTIN TIME PARTIAL (02/18/15) TISSUE EXAM BY PATHOLOGIST (08/10/17) TISSUE EXAM BY PATHOLOGIST (07/25/17) TTE W/DOPPLER COMPLETE (07/03/17) TX/PRO/DX INJ NEW DRUG ADDON (07/03/16) ULTRASOUND THERAPY (02/05/16) URINALYSIS AUTO W/SCOPE (08/10/17) URINE CULTURE/COLONY COUNT (08/10/17) WITHDRAWAL OF ARTERIAL BLOOD (07/23/16) WOUND PREP ADDL 100 CM (11/28/16) WOUND PREP TRK/ARM/LEG (11/28/16) X-RAY EXAM HIP UNI 2-3 VIEWS (11/13/15) X-RAY EXAM L-2 SPINE 4/>VWS (07/31/14) X-RAY EXAM OF ABDOMEN (08/10/17) X-RAY EXAM OF ABDOMEN (07/25/17) X-RAY EXAM OF HIP (07/31/14) X-RAY EXAM OF SHOULDER (02/09/16) X-RAY EXAM OF WRIST (02/09/16) Problem List Initiated/Reviewed/Updated: Yes My Orders Last 24 Hours: My Active Orders 11/12/17 13:08 Abdomen Pelvis w Cont [CT] Routine 11/12/17 13:15 Lactated Ringers [Ringers, Lactated] 500 ml IV ASDIRECTED 11/12/17 17:00 BASIC METABOLIC PANEL,BMP [CHEM] Routine Plan: ASSESSMENT AND PLAN Acute right upper quadrant abdominal pain with nausea - labs notable for greater than 2 g hemoglobin drop, mild elevation of amylase and lipase as well as a moderate elevation of her alkaline phosphatase. White blood cell count is mildly elevated but better than a couple of days ago. She reports the symptoms feel similar to those she experienced with a "liver infection" that occurred while she was at the [facility]. She does currently have a T-tube in place after an iatrogenic injury to the common bile duct during surgery. She has had temperature elevations and is on antibiotics but cultures have been negative. Her GFR is only 42 but I believe the benefits of adding IV contrast outweigh the risks if we add some hydration to help reduce the risk of kidney injury. -CT scan of the abdomen and pelvis with IV contrast -500 mL of lactated Ringer's over 2 hours -Agree with current antibiotics -Pain control -Repeat labs in the morning Multiple enterocutaneous fistulas - currently managed with an containment device and these seem to be fairly well controlled at this time. She is on TPN. Surgical team is managing the wound care. Hypokalemia - potassium level was 2.9 this morning. -40 mEq through the AV this morning and recheck this evening -Continue TPN Kel Tabor M.D. Requesting Provider: Dr Keyes Date Consult Requested: 11/12/17 Reason for Consult: abdominal pain, nausea, vomiting Patient History Reviewed: Yes Admission H&P Reviewed: No (not yet available) Notified Requestor: No Time Spent (in minutes): 60
[2017-11-12] MEDS ORDERED: Lactated Ringers 500 ML IV SCH (13:15)
[2017-11-12] MEDS ORDERED: Iopamidol 612 MG/ML 100 ML Bottle IV PRN (13:52)
[2017-11-12] MEDS ORDERED: Sodium Chloride 0.9% 10 ML Syringe FLUSH ONE (13:52)
[2017-11-12] MEDS ORDERED: AA 5%/Calcium/D15W/Lytes 2,000 ML with MVI, Adult with Vitamin K 10 ML, Chromium/Copper... IV SCH ×3 (14:00)
[2017-11-12] MEDS ORDERED: Sodium Chloride 0.9% 75 ML IV SCH (14:00)
[2017-11-12] MEDS ORDERED: Piperacillin/Tazobactam/Dext 4.5 GM in Premix Bag 1 BAG IV SCH (14:00)
--- NOTE | 2017-11-12 14:51 | CT ---
CT abdomen and pelvis. Total DLP 1432. Indication: Right upper quadrant pain. Findings: Lung bases are clear. Fatty infiltration of the liver. There is a drain with pigtail cathet er in the expected region of the gallbladder fossa of the liver. Drain extends through the liver pare nchyma. No focal fluid collection about the drain. There is intrahepatic biliary air. Air within a mi ldly prominent common bile duct. Pancreas enhances normally. Tiny amount of loculated hypodense fluid or potentially a small lymph node just above the body of the pancreas measuring 7 mm. Spleen within normal limits. Adrenal glands are within normal limits. Kidneys enhance normally. No hydronephrosis. There has been removal of the left-sided surgical drain. Large midline abdominal wound with diastases of the rectus abdominis. There is significantly less induration within the peritoneal cavity in the pelvis compared to prior examination. Small bowel loop eccentric to the left is directly a least abut ting the fascia. Difficult to exclude this extending through the fascia at this location. Referred ax ial image #[id number]. No dilated loops of small or large bowel. There is a segment of colon at the midline w hich appears significantly less distended compared to prior examination with the oral contrast within it. Colectomy change. No definite free air within the intraperitoneal location. Bladder wall is thic kened but under distended. No adnexal mass. Atherosclerotic nonaneurysmal aorta. Degenerative changes of the spine. No retroperitoneal hematoma. Impression: 1. No evidence for obstruction. 2. Surgical change drain without fluid about it in the expected location of the gallbladder fossa. 2. Intrabiliary air this could relate to procedures only. Infection would be apical to exclude. 4. Tiny hypodense nodule of the pancreas is described above. This could be followed in 6 months.
[2017-11-12] MEDS: Non-Formulary Medication 1 EACH IV SCH ×2 (15:05)
[2017-11-12] MEDS: Morphine 4 MG/ML Syringe IVPUSH PRN ×2 (16:11→22:10)
[2017-11-12] MEDS ORDERED: Potassium Chloride 100 ML ONE ×2 (19:48→19:49)
[2017-11-12] MEDS: Potassium Chloride 100 ML IV SCH ×2 (20:08→22:16)
[2017-11-12] MEDS: Potassium Chloride 20 MEQ, Lidocaine 1% 2 ML in Sodium Chloride 0.9% 100 ML IV SCH (20:20)
[2017-11-12] MEDS: Pantoprazole 40 MG Tab.CR PO SCH (21:52)
[2017-11-12] MEDS: Metoprolol Tartrate 25 MG Tab PO SCH (21:52)
[2017-11-12] MEDS: traZODone 50 MG Tab PO PRN (21:52)
[2017-11-12] MEDS: Zolpidem 5 MG Tab PO PRN (21:52)
[2017-11-12] MEDS: Mirtazapine 15 MG Tab PO SCH (21:52)
[2017-11-13] MEDS ORDERED: FAT EMUL/SOY/MCT/OLIV/FISH OIL 100 ML IV SCH (00:30)
[2017-11-13] MEDS: Morphine 4 MG/ML Syringe IVPUSH PRN ×2 (04:21→09:30)
[2017-11-13] MEDS: Venlafaxine 75 MG Cap.ER PO SCH (08:52)
[2017-11-13] MEDS: Metoprolol Tartrate 25 MG Tab PO SCH ×2 (08:53→21:48)
[2017-11-13] MEDS: Fenofibrate,Micronized 67 MG Cap PO SCH (08:53)
[2017-11-13] MEDS: Diazepam 5 MG Tab PO PRN ×3 (08:56→21:51)
[2017-11-13] MEDS: Vancomycin 1.2 GM in Sodium Chloride 0.9% 250 ML IV SCH (09:35)
[2017-11-13] MEDS: Bacitracin Oint 1 GM U/D Packet TOP SCH (09:35)
--- NOTE | 2017-11-13 10:40 | PCM.PN ---
- General Info Date of Service: 11/13/17 Functional Status: Reports: Pain Controlled (Still notes pain in her right flank. ), Tolerating Diet, Ambulating, Urinating - Review of Systems General: Reports: No Symptoms HEENT: Reports: No Symptoms Pulmonary: Reports: No Symptoms Cardiovascular: Reports: No Symptoms Gastrointestinal: Reports: Abdominal Pain (Right flank. Does not appear to be severe. ) Genitourinary: Reports: No Symptoms Musculoskeletal: Reports: No Symptoms Skin: Reports: No Symptoms Neurological: Reports: No Symptoms Psychiatric: Reports: No Symptoms - Patient Data Vitals - Most Recent: Last Vital Signs Temp 98.1 F 11/13/17 10:30 Pulse 112 H 11/13/17 10:30 Resp 18 11/13/17 10:30 BP 133/68 11/13/17 10:30 Pulse Ox 100 11/13/17 10:30 Weight - Most Recent: 167 lb 9.6 oz I&O - Last 24 Hours: Intake & Output 11/12/17 11/13/17 11/13/17 22:59 06:59 14:59 Intake Total 1517 1091 Output Total 1585 600 Balance -68 1091 -600 Lab Results Last 24 Hours: Laboratory Results - last 24 hr 11/12/17 11/13/17 11/13/17 Range/Units 16:52 04:20 04:20 WBC 13.4 H (4.5-11.0) K/uL RBC 3.32 (3.30-5.50) M/uL Hgb 8.9 L (12.0-15.0) g/dL Hct 28.9 L (36.0-48.0) % MCV 87 (80-98) fL MCH 27 (27-31) pg MCHC 31 L (32-36) % Plt Count 634 H (150-400) K/uL Sodium 142 (140-148) mmol/L Potassium 3.6 (3.6-5.2) mmol/L Chloride 104 (100-108) mmol/L Carbon Dioxide 27 (21-32) mmol/L Anion Gap 11.2 (5.0-14.0) mmol/L BUN 23 H (7-18) mg/dL Creatinine 1.4 H (0.6-1.0) mg/dL Est Cr Clr Drug Dosing 36.44 mL/min Estimated GFR (MDRD) 38 L (>60) Glucose 135 H (74-106) mg/dL Calcium 9.0 (8.5-10.1) mg/dL Total Bilirubin (0.2-1.0) mg/dL AST (15-37) U/L ALT (12-78) U/L Alkaline Phosphatase (46-116) U/L Total Protein (6.4-8.2) g/dL Albumin (3.4-5.0) g/dL Globulin (2.3-3.5) g/dL Albumin/Globulin Ratio (1.2-2.2) Amylase 39 D (25-115) U/L Lipase 144 (73-393) U/L 11/13/17 Range/Units 05:00 WBC (4.5-11.0) K/uL RBC (3.30-5.50) M/uL Hgb (12.0-15.0) g/dL Hct (36.0-48.0) % MCV (80-98) fL MCH (27-31) pg MCHC (32-36) % Plt Count (150-400) K/uL Sodium 143 (140-148) mmol/L Potassium 4.1 (3.6-5.2) mmol/L Chloride 107 (100-108) mmol/L Carbon Dioxide 28 (21-32) mmol/L Anion Gap 8.5 (5.0-14.0) mmol/L BUN 24 H (7-18) mg/dL Creatinine 1.3 H (0.6-1.0) mg/dL Est Cr Clr Drug Dosing 39.24 mL/min Estimated GFR (MDRD) 42 L (>60) Glucose 106 (74-106) mg/dL Calcium 9.1 (8.5-10.1) mg/dL Total Bilirubin 0.2 (0.2-1.0) mg/dL AST 36 (15-37) U/L ALT 53 (12-78) U/L Alkaline Phosphatase 401 H (46-116) U/L Total Protein 6.5 (6.4-8.2) g/dL Albumin 1.7 L (3.4-5.0) g/dL Globulin 4.8 H (2.3-3.5) g/dL Albumin/Globulin Ratio 0.4 L (1.2-2.2) Amylase (25-115) U/L Lipase (73-393) U/L Med Orders - Current: Current Medications Acetaminophen (Tylenol) 650 mg RECTAL Q6H PRN PRN Reason: Fever Albuterol/Ipratropium (Duoneb 3.0-0.5 Mg/3 Ml) 3 ml NEB Q4H PRN PRN Reason: Wheezing Bacitracin (Bacitracin Oint 1 Gm) 1 dose TOP DAILY [facility] Last Admin: 11/13/17 09:35 Dose: 1 dose Bisacodyl (Dulcolax) 5 mg PO DAILY PRN PRN Reason: Constipation Cholecalciferol (Vitamin D3) 50,000 unit PO Mo@0900 [facility] Diazepam (Valium.) 5 mg PO QID PRN PRN Reason: Anxiety Last Admin: 11/13/17 08:56 Dose: 5 mg Docusate Sodium (Colace) 100 mg PO BID PRN PRN Reason: Constipation Fenofibrate (Fenofibrate) 134 mg PO DAILY [facility] Last Admin: 11/13/17 08:53 Dose: 134 mg Heparin Sodium (Porcine) (Heparin Lock Flush 100 Units/Ml) 500 units FLUSH ASDIRECTED PRN PRN Reason: maintanence Last Admin: 11/13/17 00:25 Dose: 500 units Sodium Chloride (Normal Saline) 1,000 mls @ 0 mls/hr IV TITRATE [facility] PRN Reason: Protocol Last Admin: 11/12/17 22:10 Dose: 66 mls/hr Vancomycin HCl 1.2 gm/ Sodium (Chloride) 250 mls @ 167 mls/hr IV Q24H [facility] Last Admin: 11/13/17 09:35 Dose: 167 mls/hr Multivitamins/Minerals 10 ml/Chromium/Copper/Manganese/Seleni/Zn 1 ml/ Amino Ac/ Electrol/Dextrose/Calcium 2,011 mls @ 60 mls/hr IV .Q24H [facility] Non-Formulary Medication (Nf Drug) 1,590 mls @ 66.2 mls/hr IV .Q24H [facility] Last Infusion: 11/13/17 09:30 Dose: 25 mls/hr FAT EMUL/SOY/MCT/OLIV/FISH OIL (Smoflipid 20% Iv Fat Emulsion) 100 mls @ 6.2 mls/hr IV .Q16H8M [facility] Meropenem 1 gm/ Sodium (Chloride) 50 mls @ 100 mls/hr IV Q8H [facility] Last Admin: 11/13/17 08:57 Dose: 100 mls/hr Metoprolol Tartrate (Lopressor) 25 mg PO BID [facility] Last Admin: 11/13/17 08:53 Dose: 25 mg Mirtazapine (Remeron) 15 mg PO BEDTIME [facility] Last Admin: 11/12/17 21:52 Dose: 15 mg Morphine Sulfate (Morphine) 4 - 8 mg IVPUSH Q2H PRN PRN Reason: Pain Last Admin: 11/13/17 04:21 Dose: 8 mg Morphine Sulfate (Morphine) 15 - 30 mg PO Q4H PRN PRN Reason: Pain Ondansetron HCl (Zofran) 4 - 8 mg IVPUSH Q4H PRN PRN Reason: Nausea/Vomiting Last Admin: 11/12/17 16:10 Dose: 8 mg Pantoprazole Sodium (Protonix) 40 mg PO BEDTIME [facility] Last Admin: 11/12/17 21:52 Dose: 40 mg Scopolamine (Transderm-Scop) 1.5 mg TOP Q72H PRN PRN Reason: Nausea Trazodone HCl (Trazodone) 100 mg PO BEDTIME PRN PRN Reason: Insomnia Last Admin: 11/12/17 21:52 Dose: 100 mg Venlafaxine HCl (Effexor Xr) 300 mg PO DAILY [facility] Last Admin: 11/13/17 08:52 Dose: 300 mg Zolpidem Tartrate (Ambien) 5 mg PO BEDTIME PRN PRN Reason: Sleep Last Admin: 11/12/17 21:52 Dose: 5 mg Discontinued Medications Piperacillin/Tazobactam/ (Dextrose 4.5 gm/ Premix) 100 mls @ 200 mls/hr IV Q8H [facility] Last Admin: 11/12/17 17:10 Dose: Not Given Multivitamins/Minerals 10 ml/Chromium/Copper/Manganese/Seleni/Zn 1 ml/ Amino Ac/ Electrol/Dextrose/Calcium 2,011 mls @ 60 mls/hr IV .Q24H [facility] FAT EMUL/SOY/MCT/OLIV/FISH OIL (Smoflipid 20% Iv Fat Emulsion) 100 mls @ 6.2 mls/hr IV .Q16H8M [facility] Stop: 11/16/17 00:30 Potassium Chloride 40 meq/ (Premix) 100 mls @ 25 mls/hr IV ONETIME ONE Stop: 11/12/17 14:59 Last Admin: 11/12/17 12:52 Dose: 25 mls/hr Lactated Ringer's (Ringers, Lactated) 500 mls @ 250 mls/hr IV ASDIRECTED [facility] Stop: 11/12/17 15:16 Sodium Chloride (Normal Saline) 75 mls @ 3.5 mls/sec IV ASDIRECTED [facility] Stop: 11/12/17 16:00 Last Admin: 11/12/17 14:15 Dose: 3.5 mls/sec Potassium Chloride 20 meq/Lidocaine HCl 2 ml/ Sodium Chloride 112 mls @ 50 mls/ hr IV Q2H [facility] Stop: 11/12/17 21:29 Last Admin: 11/12/17 20:20 Dose: Not Given Potassium Chloride (Kcl 20 Meq In Water 100 Ml) Confirm Administered Dose 100 mls @ as directed .ROUTE .STK-MED ONE Stop: 11/12/17 19:49 Last Admin: 11/12/17 20:08 Dose: Not Given Potassium Chloride (Kcl 20 Meq In Water 100 Ml) Confirm Administered Dose 100 mls @ as directed .ROUTE .STK-MED ONE Stop: 11/12/17 19:50 Last Admin: 11/12/17 20:08 Dose: Not Given Potassium Chloride (Kcl 20 Meq In Water 100 Ml) 100 mls @ 50 mls/hr IV Q2H [facility] Stop: 11/13/17 00:59 Last Admin: 11/12/17 22:16 Dose: 50 mls/hr Iopamidol (Isovue-300 (61%)) 100 ml IV . DIRECTED PRN PRN Reason: RADIOLOGY EXAM Stop: 11/13/17 13:53 Last Admin: 11/12/17 14:15 Dose: 100 ml Morphine Sulfate (Morphine) 1 - 2 mg IVPUSH Q2H PRN PRN Reason: Pain Last Admin: 11/12/17 13:21 Dose: 2 mg Sodium Chloride (Saline Flush) 10 ml FLUSH ONETIME ONE Stop: 11/12/17 13:53 Last Admin: 11/12/17 14:09 Dose: 10 ml Tramadol HCl (Ultram) 25 mg PO Q6H PRN PRN Reason: Pain - Exam General: Alert, Oriented, Cooperative, No Acute Distress Lungs: Clear to Auscultation, Normal Respiratory Effort Cardiovascular: Regular Rate, Regular Rhythm GI/Abdominal Exam: Normal Bowel Sounds, Other (Entero-aero fistula. Open abdomen. ) Back Exam: Normal Inspection, Full Range of Motion Extremities: Normal Inspection Skin: Warm, Dry, Other (Open abdomen covered with a "wound department operations manager." ) Wound/Incisions: Drainage, Other (Open abdomen with fistulas. ) Neurological: No New Focal Deficit, Normal Gait, Normal Speech Psy/Mental Status: Alert, Normal Affect, Normal Mood - Problem List & Annotations (1) Abdominal wall fistula SNOMED Code(s): 923414822 Code(s): K63.2 - FISTULA OF INTESTINE Status: Acute Current Visit: No - Problem List Review Problem List Initiated/Reviewed/Updated: Yes - Assessment Assessment:: Her WBC is down. She has no fever. Her bile drainage tube and wound department operations manager are functioning. A new PICC could not be placed in her left arm, not sure she needs a new PICC. - Plan Plan:: No change in plans. Continue TPN, antibiotics.
--- NOTE | 2017-11-13 11:55 | PCM.CONSN ---
- General Info Date of Service: 11/13/17 Functional Status: Reports: Pain Controlled, Tolerating Diet - Review of Systems General: Denies: Fever Gastrointestinal: Reports: Abdominal Pain Systems Review Comment:: No acute events overnight. Right flank pain has improved but not completely resolved. Hemoglobin level has remained stable and there has been no evidence for bleeding or blood loss. No nausea today and she is tolerating her diet. Heart rate is stable in the low 100s. Tolerating TPN. They were unable to place a new PICC line last night. White blood cell count is stable to slightly improved today. Kidney function is stable. - Patient Data Vitals - Most Recent: Last Vital Signs Temp 36.7 C 11/13/17 10:30 Pulse 112 H 11/13/17 10:30 Resp 18 11/13/17 10:30 BP 133/68 11/13/17 10:30 Pulse Ox 100 11/13/17 10:30 Weight - Most Recent: 76.022 kg I&O - Last 24 Hours: Intake & Output 11/12/17 11/13/17 11/13/17 22:59 06:59 14:59 Intake Total 1517 1091 Output Total 1585 600 Balance -68 1091 -600 Lab Results Last 24 Hours: Laboratory Results - last 24 hr 11/12/17 11/13/17 11/13/17 Range/Units 16:52 04:20 04:20 WBC 13.4 H (4.5-11.0) K/uL RBC 3.32 (3.30-5.50) M/uL Hgb 8.9 L (12.0-15.0) g/dL Hct 28.9 L (36.0-48.0) % MCV 87 (80-98) fL MCH 27 (27-31) pg MCHC 31 L (32-36) % Plt Count 634 H (150-400) K/uL Sodium 142 (140-148) mmol/L Potassium 3.6 (3.6-5.2) mmol/L Chloride 104 (100-108) mmol/L Carbon Dioxide 27 (21-32) mmol/L Anion Gap 11.2 (5.0-14.0) mmol/L BUN 23 H (7-18) mg/dL Creatinine 1.4 H (0.6-1.0) mg/dL Est Cr Clr Drug Dosing 36.44 mL/min Estimated GFR (MDRD) 38 L (>60) Glucose 135 H (74-106) mg/dL Calcium 9.0 (8.5-10.1) mg/dL Total Bilirubin (0.2-1.0) mg/dL AST (15-37) U/L ALT (12-78) U/L Alkaline Phosphatase (46-116) U/L Total Protein (6.4-8.2) g/dL Albumin (3.4-5.0) g/dL Globulin (2.3-3.5) g/dL Albumin/Globulin Ratio (1.2-2.2) Amylase 39 D (25-115) U/L Lipase 144 (73-393) U/L 11/13/17 Range/Units 05:00 WBC (4.5-11.0) K/uL RBC (3.30-5.50) M/uL Hgb (12.0-15.0) g/dL Hct (36.0-48.0) % MCV (80-98) fL MCH (27-31) pg MCHC (32-36) % Plt Count (150-400) K/uL Sodium 143 (140-148) mmol/L Potassium 4.1 (3.6-5.2) mmol/L Chloride 107 (100-108) mmol/L Carbon Dioxide 28 (21-32) mmol/L Anion Gap 8.5 (5.0-14.0) mmol/L BUN 24 H (7-18) mg/dL Creatinine 1.3 H (0.6-1.0) mg/dL Est Cr Clr Drug Dosing 39.24 mL/min Estimated GFR (MDRD) 42 L (>60) Glucose 106 (74-106) mg/dL Calcium 9.1 (8.5-10.1) mg/dL Total Bilirubin 0.2 (0.2-1.0) mg/dL AST 36 (15-37) U/L ALT 53 (12-78) U/L Alkaline Phosphatase 401 H (46-116) U/L Total Protein 6.5 (6.4-8.2) g/dL Albumin 1.7 L (3.4-5.0) g/dL Globulin 4.8 H (2.3-3.5) g/dL Albumin/Globulin Ratio 0.4 L (1.2-2.2) Amylase (25-115) U/L Lipase (73-393) U/L Med Orders - Current: Current Medications Acetaminophen (Tylenol) 650 mg RECTAL Q6H PRN PRN Reason: Fever Albuterol/Ipratropium (Duoneb 3.0-0.5 Mg/3 Ml) 3 ml NEB Q4H PRN PRN Reason: Wheezing Bacitracin (Bacitracin Oint 1 Gm) 1 dose TOP DAILY [facility] Last Admin: 11/13/17 09:35 Dose: 1 dose Bisacodyl (Dulcolax) 5 mg PO DAILY PRN PRN Reason: Constipation Cholecalciferol (Vitamin D3) 50,000 unit PO Mo@0900 [facility] Diazepam (Valium.) 5 mg PO QID PRN PRN Reason: Anxiety Last Admin: 11/13/17 08:56 Dose: 5 mg Docusate Sodium (Colace) 100 mg PO BID PRN PRN Reason: Constipation Fenofibrate (Fenofibrate) 134 mg PO DAILY [facility] Last Admin: 11/13/17 08:53 Dose: 134 mg Heparin Sodium (Porcine) (Heparin Lock Flush 100 Units/Ml) 500 units FLUSH ASDIRECTED PRN PRN Reason: maintanence Last Admin: 11/13/17 00:25 Dose: 500 units Sodium Chloride (Normal Saline) 1,000 mls @ 0 mls/hr IV TITRATE [facility] PRN Reason: Protocol Last Admin: 11/12/17 22:10 Dose: 66 mls/hr Vancomycin HCl 1.2 gm/ Sodium (Chloride) 250 mls @ 167 mls/hr IV Q24H [facility] Last Admin: 11/13/17 09:35 Dose: 167 mls/hr Multivitamins/Minerals 10 ml/Chromium/Copper/Manganese/Seleni/Zn 1 ml/ Amino Ac/ Electrol/Dextrose/Calcium 2,011 mls @ 60 mls/hr IV .Q24H [facility] Non-Formulary Medication (Nf Drug) 1,590 mls @ 66.2 mls/hr IV .Q24H [facility] Last Infusion: 11/13/17 09:30 Dose: 25 mls/hr FAT EMUL/SOY/MCT/OLIV/FISH OIL (Smoflipid 20% Iv Fat Emulsion) 100 mls @ 6.2 mls/hr IV .Q16H8M [facility] Meropenem 1 gm/ Sodium (Chloride) 50 mls @ 100 mls/hr IV Q8H [facility] Last Admin: 11/13/17 08:57 Dose: 100 mls/hr Metoprolol Tartrate (Lopressor) 25 mg PO BID [facility] Last Admin: 11/13/17 08:53 Dose: 25 mg Mirtazapine (Remeron) 15 mg PO BEDTIME [facility] Last Admin: 11/12/17 21:52 Dose: 15 mg Morphine Sulfate (Morphine) 4 - 8 mg IVPUSH Q2H PRN PRN Reason: Pain Last Admin: 11/13/17 04:21 Dose: 8 mg Morphine Sulfate (Morphine) 15 - 30 mg PO Q4H PRN PRN Reason: Pain Ondansetron HCl (Zofran) 4 - 8 mg IVPUSH Q4H PRN PRN Reason: Nausea/Vomiting Last Admin: 11/12/17 16:10 Dose: 8 mg Pantoprazole Sodium (Protonix) 40 mg PO BEDTIME [facility] Last Admin: 11/12/17 21:52 Dose: 40 mg Scopolamine (Transderm-Scop) 1.5 mg TOP Q72H PRN PRN Reason: Nausea Trazodone HCl (Trazodone) 100 mg PO BEDTIME PRN PRN Reason: Insomnia Last Admin: 11/12/17 21:52 Dose: 100 mg Venlafaxine HCl (Effexor Xr) 300 mg PO DAILY [facility] Last Admin: 11/13/17 08:52 Dose: 300 mg Zolpidem Tartrate (Ambien) 5 mg PO BEDTIME PRN PRN Reason: Sleep Last Admin: 11/12/17 21:52 Dose: 5 mg Discontinued Medications Piperacillin/Tazobactam/ (Dextrose 4.5 gm/ Premix) 100 mls @ 200 mls/hr IV Q8H [facility] Last Admin: 11/12/17 17:10 Dose: Not Given Multivitamins/Minerals 10 ml/Chromium/Copper/Manganese/Seleni/Zn 1 ml/ Amino Ac/ Electrol/Dextrose/Calcium 2,011 mls @ 60 mls/hr IV .Q24H [facility] FAT EMUL/SOY/MCT/OLIV/FISH OIL (Smoflipid 20% Iv Fat Emulsion) 100 mls @ 6.2 mls/hr IV .Q16H8M [facility] Stop: 11/16/17 00:30 Potassium Chloride 40 meq/ (Premix) 100 mls @ 25 mls/hr IV ONETIME ONE Stop: 11/12/17 14:59 Last Admin: 11/12/17 12:52 Dose: 25 mls/hr Lactated Ringer's (Ringers, Lactated) 500 mls @ 250 mls/hr IV ASDIRECTED [facility] Stop: 11/12/17 15:16 Sodium Chloride (Normal Saline) 75 mls @ 3.5 mls/sec IV ASDIRECTED [facility] Stop: 11/12/17 16:00 Last Admin: 11/12/17 14:15 Dose: 3.5 mls/sec Potassium Chloride 20 meq/Lidocaine HCl 2 ml/ Sodium Chloride 112 mls @ 50 mls/ hr IV Q2H [facility] Stop: 11/12/17 21:29 Last Admin: 11/12/17 20:20 Dose: Not Given Potassium Chloride (Kcl 20 Meq In Water 100 Ml) Confirm Administered Dose 100 mls @ as directed .ROUTE .STK-MED ONE Stop: 11/12/17 19:49 Last Admin: 11/12/17 20:08 Dose: Not Given Potassium Chloride (Kcl 20 Meq In Water 100 Ml) Confirm Administered Dose 100 mls @ as directed .ROUTE .STK-MED ONE Stop: 11/12/17 19:50 Last Admin: 11/12/17 20:08 Dose: Not Given Potassium Chloride (Kcl 20 Meq In Water 100 Ml) 100 mls @ 50 mls/hr IV Q2H [facility] Stop: 11/13/17 00:59 Last Admin: 11/12/17 22:16 Dose: 50 mls/hr Iopamidol (Isovue-300 (61%)) 100 ml IV . DIRECTED PRN PRN Reason: RADIOLOGY EXAM Stop: 11/13/17 13:53 Last Admin: 11/12/17 14:15 Dose: 100 ml Morphine Sulfate (Morphine) 1 - 2 mg IVPUSH Q2H PRN PRN Reason: Pain Last Admin: 11/12/17 13:21 Dose: 2 mg Sodium Chloride (Saline Flush) 10 ml FLUSH ONETIME ONE Stop: 11/12/17 13:53 Last Admin: 11/12/17 14:09 Dose: 10 ml Tramadol HCl (Ultram) 25 mg PO Q6H PRN PRN Reason: Pain - Exam Quality Assessment: No: Supplemental Oxygen General: Alert, Oriented, Cooperative, No Acute Distress Neck: Supple Lungs: Normal Respiratory Effort GI/Abdominal Exam: Soft, No Distention, Other (wound service operations manager over open abd wound ) Extremities: No Pedal Edema Psy/Mental Status: Alert, Normal Affect Consult PN Assessment/Plan Procedures: Procedures AIRWAY INHALATION TREATMENT (10/28/14) ASSAY OF ACETAMINOPHEN (05/22/14) ASSAY OF CK (CPK) (10/18/15) ASSAY OF ETHANOL (05/22/14) ASSAY OF LACTIC ACID (08/10/17) ASSAY OF LIPASE (07/23/16) ASSAY OF MAGNESIUM (08/10/17) ASSAY OF NATRIURETIC PEPTIDE (08/10/17) ASSAY OF PHOSPHORUS (08/10/17) ASSAY OF SALICYLATE (05/22/14) ASSAY OF TROPONIN QUANT (08/10/17) ASSAY OF VANCOMYCIN (08/10/17) BLEEDING TIME TEST (07/25/17) BLOOD CULTURE FOR BACTERIA (08/10/17) BLOOD GASES ANY COMBINATION (07/23/16) BLOOD TRANSFUSION SERVICE (08/10/17) BLOOD TYPING SEROLOGIC ABO (08/10/17) BLOOD TYPING SEROLOGIC RH(D) (08/10/17) C DIFF AMPLIFIED PROBE (07/25/17) C-REACTIVE PROTEIN (07/03/16) CHEST X-RAY 1 VIEW FRONTAL (08/10/17) CHEST X-RAY 2VW FRONTAL&LATL (07/25/17) COMP SCREEN MAMMOGRAM ADD-ON (03/01/15) COMPATIBILITY TEST ANTIGLOB (08/10/17) COMPATIBILITY TEST SPIN (08/10/17) COMPLETE CBC AUTOMATED (08/10/17) COMPLETE CBC W/AUTO DIFF WBC (08/10/17) COMPREHEN METABOLIC PANEL (08/10/17) CREATINE MB FRACTION (08/10/17) CT ABD & PELV W/CONTRAST (07/25/17) CT ABD & PELVIS W/O CONTRAST (08/10/17) CT ANGIOGRAPHY CHEST (07/23/16) CT HEAD/BRAIN W/O DYE (01/03/15) CT THORAX W/O DYE (04/19/15) CULTR BACTERIA EXCEPT BLOOD (08/10/17) CULTURE OTHR SPECIMN AEROBIC (08/10/17) CULTURE SCREEN ONLY (12/12/14) EGD BIOPSY SINGLE/MULTIPLE (12/12/14) ELECTROCARDIOGRAM TRACING (05/20/17) EMERGENCY DEPT VISIT (08/10/17) EMERGENCY DEPT VISIT (08/07/17) EMERGENCY DEPT VISIT (01/31/17) EMERGENCY DEPT VISIT (03/28/16) EMERGENCY DEPT VISIT (02/09/16) EMERGENCY DEPT VISIT (11/13/15) EMERGENCY DEPT VISIT (10/18/15) EMERGENCY DEPT VISIT (08/16/15) EMERGENCY DEPT VISIT (06/26/15) EMERGENCY DEPT VISIT (10/28/14) EMERGENCY DEPT VISIT (07/31/14) EMERGENCY DEPT VISIT (06/23/14) EMERGENCY DEPT VISIT (05/22/14) EVALUATION OF WHEEZING (11/28/14) EXTRACRANIAL BILAT STUDY (06/17/17) EXTREMITY STUDY (08/10/17) FIBRIN DEGRADATION QUANT (06/26/15) GLUCOSE BLOOD TEST (08/10/17) HEMOGLOBIN (08/10/17) HYDRATE IV INFUSION ADD-ON (06/23/14) HYDRATION IV INFUSION INIT (05/22/14) INJECT SPINE LUMBAR/SACRAL (06/05/16) INJECT TRIGGER POINTS 3/> (06/05/16) INSERT PICC CATH (08/10/17) MANUAL THERAPY 1/> REGIONS (02/05/16) MEASURE BLOOD OXYGEN LEVEL (07/25/17) METABOLIC PANEL TOTAL CA (08/10/17) MRI BRAIN STEM W/O & W/DYE (01/11/15) MRI JOINT UPR EXTREM W/O DYE (05/29/15) MRI LUMBAR SPINE W/O DYE (06/02/14) MRI NECK SPINE W/O DYE (03/01/15) NEG PRESS WOUND TX </=50 CM (08/10/17) NEUROMUSCULAR REEDUCATION (02/05/16) OBSERV/HOSP SAME DATE (05/22/14) OT EVALUATION (03/24/15) OVA AND PARASITES SMEARS (07/25/17) PROTHROMBIN TIME (02/09/16) PT EVALUATION (02/05/16) RBC ANTIBODY SCREEN (08/10/17) ROUTINE VENIPUNCTURE (08/10/17) SKIN SPLT GRFT T/A/L ADD-ON (11/28/16) SKIN SPLT GRFT TRNK/ARM/LEG (11/28/16) SMEAR COMPLEX STAIN (07/25/17) SMEAR GRAM STAIN (08/10/17) THER/PROPH/DIAG INJ IV PUSH (07/03/16) THER/PROPH/DIAG INJ SC/IM (11/13/15) THER/PROPH/DIAG IV INF INIT (08/10/17) THROMBOPLASTIN TIME PARTIAL (02/18/15) TISSUE EXAM BY PATHOLOGIST (08/10/17) TISSUE EXAM BY PATHOLOGIST (07/25/17) TTE W/DOPPLER COMPLETE (07/03/17) TX/PRO/DX INJ NEW DRUG ADDON (07/03/16) ULTRASOUND THERAPY (02/05/16) URINALYSIS AUTO W/SCOPE (08/10/17) URINE CULTURE/COLONY COUNT (08/10/17) WITHDRAWAL OF ARTERIAL BLOOD (07/23/16) WOUND PREP ADDL 100 CM (11/28/16) WOUND PREP TRK/ARM/LEG (11/28/16) X-RAY EXAM HIP UNI 2-3 VIEWS (11/13/15) X-RAY EXAM L-2 SPINE 4/>VWS (07/31/14) X-RAY EXAM OF ABDOMEN (08/10/17) X-RAY EXAM OF ABDOMEN (07/25/17) X-RAY EXAM OF HIP (07/31/14) X-RAY EXAM OF SHOULDER (02/09/16) X-RAY EXAM OF WRIST (02/09/16) Problem List Initiated/Reviewed/Updated: Yes My Orders Last 24 Hours: My Active Orders 11/12/17 15:07 Morphine 4 - 8 mg IVPUSH Q2H PRN 11/12/17 16:00 Meropenem [Merrem] 1 gm Sodium Chloride 0.9% [Normal Saline] 50 ml IV Q8H 11/13/17 09:04 Morphine 15 - 30 mg PO Q4H PRN Plan: ASSESSMENT AND PLAN Acute right upper quadrant abdominal pain with nausea - CT yesterday did not show any acute pathology in the abdomen and especially in the right upper quadrant. Pain is better today. Infection is a possibility but cultures are negative so far. Seems to be doing better with antibiotic adjustment yesterday. Cholangitis could be considered as a diagnosis though there is no confirmation at this time. She does have a T-tube in place. -Agree with current antibiotics -Pain control -Follow-up cultures -Repeat labs in the morning Multiple enterocutaneous fistulas - currently managed with an containment device and these seem to be fairly well controlled at this time. She is on TPN. Surgical team is managing the wound care. Hypokalemia - improved with supplementation. -daily labs -Continue TPN Kel Tabor M.D.
[2017-11-13] MEDS: Morphine 15 MG Tab PO PRN ×3 (12:01→21:52)
[2017-11-13] MEDS: Non-Formulary Medication 1 EACH IV SCH ×2 (14:09)
[2017-11-13] MEDS: Pantoprazole 40 MG Tab.CR PO SCH (21:51)
[2017-11-13] MEDS: traZODone 50 MG Tab PO PRN (21:51)
[2017-11-13] MEDS: Mirtazapine 15 MG Tab PO SCH (21:51)
[2017-11-13] MEDS: Zolpidem 5 MG Tab PO PRN (21:52)
[2017-11-13] MEDS: Sodium Chloride 0.9% 1,000 ML IV SCH (21:57)
[2017-11-14] MEDS: Morphine 15 MG Tab PO PRN ×2 (08:12→12:20)
[2017-11-14] MEDS: Diazepam 5 MG Tab PO PRN ×2 (08:14→21:05)
[2017-11-14] MEDS: Vancomycin 1.2 GM in Sodium Chloride 0.9% 250 ML IV SCH (08:44)
[2017-11-14] MEDS: Fenofibrate,Micronized 67 MG Cap PO SCH (09:00)
[2017-11-14] MEDS: Venlafaxine 75 MG Cap.ER PO SCH (09:00)
[2017-11-14] MEDS: Metoprolol Tartrate 25 MG Tab PO SCH ×2 (09:00→21:01)
[2017-11-14] MEDS: Bacitracin Oint 1 GM U/D Packet TOP SCH (09:01)
[2017-11-14] MEDS ORDERED: Ketorolac 30 MG/ML SDV IVPUSH PRN (10:08)
--- NOTE | 2017-11-14 10:11 | PCM.CONSN ---
- General Info Date of Service: 11/14/17 Functional Status: Reports: Tolerating Diet. Denies: Pain Controlled - Review of Systems General: Reports: Weakness. Denies: Fever Gastrointestinal: Reports: Abdominal Pain Systems Review Comment:: No acute events overnight. Right upper quadrant pain seems a little bit more intense today. Morphine does help some but does not provide adequate pain relief. She did not have any fevers overnight. Cultures remain negative. Continues to drain some fluid from her T-tube. Hemoglobin level stable. Kidney function improved compared to yesterday. - Patient Data Vitals - Most Recent: Last Vital Signs Temp 36.9 C 11/14/17 07:00 Pulse 107 H 11/14/17 09:00 Resp 18 11/14/17 07:00 BP 117/62 11/14/17 09:00 Pulse Ox 96 11/14/17 07:00 Weight - Most Recent: 76.022 kg I&O - Last 24 Hours: Intake & Output 11/13/17 11/14/17 11/14/17 22:59 06:59 14:59 Intake Total 1616 1246 300 Balance 1616 1246 300 Lab Results Last 24 Hours: Laboratory Results - last 24 hr 11/14/17 11/14/17 11/14/17 Range/Units 07:59 07:59 07:59 WBC 12.3 H (4.5-11.0) K/uL RBC 3.46 (3.30-5.50) M/uL Hgb 9.1 L (12.0-15.0) g/dL Hct 30.1 L (36.0-48.0) % MCV 87 (80-98) fL MCH 26 L (27-31) pg MCHC 30 L (32-36) % Plt Count 572 H (150-400) K/uL Sodium 141 (140-148) mmol/L Potassium 3.9 (3.6-5.2) mmol/L Chloride 107 (100-108) mmol/L Carbon Dioxide 26 (21-32) mmol/L Anion Gap 7.6 (5.0-14.0) mmol/L BUN 21 H (7-18) mg/dL Creatinine 1.0 (0.6-1.0) mg/dL Est Cr Clr Drug Dosing 51.02 mL/min Estimated GFR (MDRD) 56 L (>60) Glucose 112 H (74-106) mg/dL Calcium 8.9 (8.5-10.1) mg/dL Total Bilirubin 0.2 (0.2-1.0) mg/dL AST 32 (15-37) U/L ALT 42 (12-78) U/L Alkaline Phosphatase 363 H (46-116) U/L Total Protein 6.1 L (6.4-8.2) g/dL Albumin 1.6 L (3.4-5.0) g/dL Globulin 4.5 H (2.3-3.5) g/dL Albumin/Globulin Ratio 0.4 L (1.2-2.2) Vancomycin Trough 12.6 (10.0-20.0) ug/mL Med Orders - Current: Current Medications Acetaminophen (Tylenol) 650 mg RECTAL Q6H PRN PRN Reason: Fever Albuterol/Ipratropium (Duoneb 3.0-0.5 Mg/3 Ml) 3 ml NEB Q4H PRN PRN Reason: Wheezing Bacitracin (Bacitracin Oint 1 Gm) 1 dose TOP DAILY [facility] [place] Last Admin: 11/14/17 09:01 Dose: 1 dose Bisacodyl (Dulcolax) 5 mg PO DAILY PRN PRN Reason: Constipation Cholecalciferol (Vitamin D3) 50,000 unit PO Mo@0900 [facility] [place] Diazepam (Valium.) 5 mg PO QID PRN PRN Reason: Anxiety Last Admin: 11/14/17 08:14 Dose: 5 mg Docusate Sodium (Colace) 100 mg PO BID PRN PRN Reason: Constipation Fenofibrate (Fenofibrate) 134 mg PO DAILY [facility] [place] Last Admin: 11/14/17 09:00 Dose: 134 mg Heparin Sodium (Porcine) (Heparin Lock Flush 100 Units/Ml) 500 units FLUSH ASDIRECTED PRN PRN Reason: maintanence Last Admin: 11/14/17 07:54 Dose: 500 units Sodium Chloride (Normal Saline) 1,000 mls @ 0 mls/hr IV TITRATE [facility] [place] PRN Reason: Protocol Last Admin: 11/13/17 21:57 Dose: 49.2 mls/hr Vancomycin HCl 1.2 gm/ Sodium (Chloride) 250 mls @ 167 mls/hr IV Q24H [facility] [place] Last Admin: 11/14/17 08:44 Dose: 167 mls/hr Multivitamins/Minerals 10 ml/Chromium/Copper/Manganese/Seleni/Zn 1 ml/ Amino Ac/ Electrol/Dextrose/Calcium 2,011 mls @ 60 mls/hr IV .Q24H [facility] [place] Non-Formulary Medication (Nf Drug) 1,590 mls @ 66.2 mls/hr IV .Q24H [facility] [place] Last Infusion: 11/13/17 21:42 Dose: 42.9 mls/hr FAT EMUL/SOY/MCT/OLIV/FISH OIL (Smoflipid 20% Iv Fat Emulsion) 100 mls @ 6.2 mls/hr IV .Q16H8M [facility] [place] Meropenem 1 gm/ Sodium (Chloride) 50 mls @ 100 mls/hr IV Q8H [facility] [place] Last Admin: 11/14/17 08:01 Dose: 100 mls/hr Metoprolol Tartrate (Lopressor) 25 mg PO BID [facility] [place] Last Admin: 11/14/17 09:00 Dose: 25 mg Mirtazapine (Remeron) 15 mg PO BEDTIME [facility] [place] Last Admin: 11/13/17 21:51 Dose: 15 mg Morphine Sulfate (Morphine) 4 - 8 mg IVPUSH Q2H PRN PRN Reason: Pain Last Admin: 11/13/17 09:30 Dose: 8 mg Morphine Sulfate (Morphine) 15 - 30 mg PO Q4H PRN PRN Reason: Pain Last Admin: 11/14/17 08:12 Dose: 30 mg Ondansetron HCl (Zofran) 4 - 8 mg IVPUSH Q4H PRN PRN Reason: Nausea/Vomiting Last Admin: 11/12/17 16:10 Dose: 8 mg Pantoprazole Sodium (Protonix) 40 mg PO BEDTIME [facility] [place] Last Admin: 11/13/17 21:51 Dose: 40 mg Scopolamine (Transderm-Scop) 1.5 mg TOP Q72H PRN PRN Reason: Nausea Trazodone HCl (Trazodone) 100 mg PO BEDTIME PRN PRN Reason: Insomnia Last Admin: 11/13/17 21:51 Dose: 100 mg Venlafaxine HCl (Effexor Xr) 300 mg PO DAILY [facility] [place] Last Admin: 11/14/17 09:00 Dose: 300 mg Zolpidem Tartrate (Ambien) 5 mg PO BEDTIME PRN PRN Reason: Sleep Last Admin: 11/13/17 21:52 Dose: 5 mg Discontinued Medications Piperacillin/Tazobactam/ (Dextrose 4.5 gm/ Premix) 100 mls @ 200 mls/hr IV Q8H [facility] [place] Last Admin: 11/12/17 17:10 Dose: Not Given Multivitamins/Minerals 10 ml/Chromium/Copper/Manganese/Seleni/Zn 1 ml/ Amino Ac/ Electrol/Dextrose/Calcium 2,011 mls @ 60 mls/hr IV .Q24H [facility] [place] FAT EMUL/SOY/MCT/OLIV/FISH OIL (Smoflipid 20% Iv Fat Emulsion) 100 mls @ 6.2 mls/hr IV .Q16H8M [facility] [place] Stop: 11/16/17 00:30 Potassium Chloride 40 meq/ (Premix) 100 mls @ 25 mls/hr IV ONETIME ONE Stop: 11/12/17 14:59 Last Admin: 11/12/17 12:52 Dose: 25 mls/hr Lactated Ringer's (Ringers, Lactated) 500 mls @ 250 mls/hr IV ASDIRECTED [facility] [place] Stop: 11/12/17 15:16 Sodium Chloride (Normal Saline) 75 mls @ 3.5 mls/sec IV ASDIRECTED [facility] [place] Stop: 11/12/17 16:00 Last Admin: 11/12/17 14:15 Dose: 3.5 mls/sec Potassium Chloride 20 meq/Lidocaine HCl 2 ml/ Sodium Chloride 112 mls @ 50 mls/ hr IV Q2H [facility] [place] Stop: 11/12/17 21:29 Last Admin: 11/12/17 20:20 Dose: Not Given Potassium Chloride (Kcl 20 Meq In Water 100 Ml) Confirm Administered Dose 100 mls @ as directed .ROUTE .STK-MED ONE Stop: 11/12/17 19:49 Last Admin: 11/12/17 20:08 Dose: Not Given Potassium Chloride (Kcl 20 Meq In Water 100 Ml) Confirm Administered Dose 100 mls @ as directed .ROUTE .STK-MED ONE Stop: 11/12/17 19:50 Last Admin: 11/12/17 20:08 Dose: Not Given Potassium Chloride (Kcl 20 Meq In Water 100 Ml) 100 mls @ 50 mls/hr IV Q2H [facility] [place] Stop: 03/01/18 00:59 Last Admin: 11/12/17 22:16 Dose: 50 mls/hr Iopamidol (Isovue-300 (61%)) 100 ml IV . DIRECTED PRN PRN Reason: RADIOLOGY EXAM Stop: 11/13/17 13:53 Last Admin: 11/12/17 14:15 Dose: 100 ml Morphine Sulfate (Morphine) 1 - 2 mg IVPUSH Q2H PRN PRN Reason: Pain Last Admin: 11/12/17 13:21 Dose: 2 mg Sodium Chloride (Saline Flush) 10 ml FLUSH ONETIME ONE Stop: 11/12/17 13:53 Last Admin: 11/12/17 14:09 Dose: 10 ml Tramadol HCl (Ultram) 25 mg PO Q6H PRN PRN Reason: Pain - Exam Quality Assessment: No: Supplemental Oxygen General: Alert, Oriented, Cooperative, No Acute Distress Neck: Supple Lungs: Normal Respiratory Effort Cardiovascular: Regular Rate, Regular Rhythm GI/Abdominal Exam: Soft, No Distention, Tender, Other (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 manager of 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 in 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 over large open abdominal wound with several fistulas noted) Extremities: No Pedal Edema Psy/Mental Status: Alert, Normal Affect Consult PN Assessment/Plan Procedures: Procedures AIRWAY INHALATION TREATMENT (10/28/14) ASSAY OF ACETAMINOPHEN (05/22/14) ASSAY OF CK (CPK) (10/18/15) ASSAY OF ETHANOL (05/22/14) ASSAY OF LACTIC ACID (08/10/17) ASSAY OF LIPASE (07/23/16) ASSAY OF MAGNESIUM (08/10/17) ASSAY OF NATRIURETIC PEPTIDE (08/10/17) ASSAY OF PHOSPHORUS (08/10/17) ASSAY OF SALICYLATE (05/22/14) ASSAY OF TROPONIN QUANT (08/10/17) ASSAY OF VANCOMYCIN (08/10/17) BLEEDING TIME TEST (07/25/17) BLOOD CULTURE FOR BACTERIA (08/10/17) BLOOD GASES ANY COMBINATION (07/23/16) BLOOD TRANSFUSION SERVICE (08/10/17) BLOOD TYPING SEROLOGIC ABO (08/10/17) BLOOD TYPING SEROLOGIC RH(D) (08/10/17) C DIFF AMPLIFIED PROBE (07/25/17) C-REACTIVE PROTEIN (07/03/16) CHEST X-RAY 1 VIEW FRONTAL (08/10/17) CHEST X-RAY 2VW FRONTAL&LATL (07/25/17) COMP SCREEN MAMMOGRAM ADD-ON (03/01/15) COMPATIBILITY TEST ANTIGLOB (08/10/17) COMPATIBILITY TEST SPIN (08/10/17) COMPLETE CBC AUTOMATED (08/10/17) COMPLETE CBC W/AUTO DIFF WBC (08/10/17) COMPREHEN METABOLIC PANEL (08/10/17) CREATINE MB FRACTION (08/10/17) CT ABD & PELV W/CONTRAST (07/25/17) CT ABD & PELVIS W/O CONTRAST (08/10/17) CT ANGIOGRAPHY CHEST (07/23/16) CT HEAD/BRAIN W/O DYE (01/03/15) CT THORAX W/O DYE (04/19/15) CULTR BACTERIA EXCEPT BLOOD (08/10/17) CULTURE OTHR SPECIMN AEROBIC (08/10/17) CULTURE SCREEN ONLY (12/12/14) EGD BIOPSY SINGLE/MULTIPLE (12/12/14) ELECTROCARDIOGRAM TRACING (05/20/17) EMERGENCY DEPT VISIT (08/10/17) EMERGENCY DEPT VISIT (08/07/17) EMERGENCY DEPT VISIT (01/31/17) EMERGENCY DEPT VISIT (03/28/16) EMERGENCY DEPT VISIT (02/09/16) EMERGENCY DEPT VISIT (11/13/15) EMERGENCY DEPT VISIT (10/18/15) EMERGENCY DEPT VISIT (08/16/15) EMERGENCY DEPT VISIT (06/26/15) EMERGENCY DEPT VISIT (10/28/14) EMERGENCY DEPT VISIT (07/31/14) EMERGENCY DEPT VISIT (06/23/14) EMERGENCY DEPT VISIT (05/22/14) EVALUATION OF WHEEZING (11/28/14) EXTRACRANIAL BILAT STUDY (06/17/17) EXTREMITY STUDY (08/10/17) FIBRIN DEGRADATION QUANT (06/26/15) GLUCOSE BLOOD TEST (08/10/17) HEMOGLOBIN (08/10/17) HYDRATE IV INFUSION ADD-ON (06/23/14) HYDRATION IV INFUSION INIT (05/22/14) INJECT SPINE LUMBAR/SACRAL (06/05/16) INJECT TRIGGER POINTS 3/> (06/05/16) INSERT PICC CATH (08/10/17) MANUAL THERAPY 1/> REGIONS (02/05/16) MEASURE BLOOD OXYGEN LEVEL (07/25/17) METABOLIC PANEL TOTAL CA (08/10/17) MRI BRAIN STEM W/O & W/DYE (01/11/15) MRI JOINT UPR EXTREM W/O DYE (05/29/15) MRI LUMBAR SPINE W/O DYE (06/02/14) MRI NECK SPINE W/O DYE (03/01/15) NEG PRESS WOUND TX </=50 CM (08/10/17) NEUROMUSCULAR REEDUCATION (02/05/16) OBSERV/HOSP SAME DATE (05/22/14) OT EVALUATION (03/24/15) OVA AND PARASITES SMEARS (07/25/17) PROTHROMBIN TIME (02/09/16) PT EVALUATION (02/05/16) RBC ANTIBODY SCREEN (08/10/17) ROUTINE VENIPUNCTURE (08/10/17) SKIN SPLT GRFT T/A/L ADD-ON (11/28/16) SKIN SPLT GRFT TRNK/ARM/LEG (11/28/16) SMEAR COMPLEX STAIN (07/25/17) SMEAR GRAM STAIN (08/10/17) THER/PROPH/DIAG INJ IV PUSH (07/03/16) THER/PROPH/DIAG INJ SC/IM (11/13/15) THER/PROPH/DIAG IV INF INIT (08/10/17) THROMBOPLASTIN TIME PARTIAL (02/18/15) TISSUE EXAM BY PATHOLOGIST (08/10/17) TISSUE EXAM BY PATHOLOGIST (07/25/17) TTE W/DOPPLER COMPLETE (07/03/17) TX/PRO/DX INJ NEW DRUG ADDON (07/03/16) ULTRASOUND THERAPY (02/05/16) URINALYSIS AUTO W/SCOPE (08/10/17) URINE CULTURE/COLONY COUNT (08/10/17) WITHDRAWAL OF ARTERIAL BLOOD (07/23/16) WOUND PREP ADDL 100 CM (11/28/16) WOUND PREP TRK/ARM/LEG (11/28/16) X-RAY EXAM HIP UNI 2-3 VIEWS (11/13/15) X-RAY EXAM L-2 SPINE 4/>VWS (07/31/14) X-RAY EXAM OF ABDOMEN (08/10/17) X-RAY EXAM OF ABDOMEN (07/25/17) X-RAY EXAM OF HIP (07/31/14) X-RAY EXAM OF SHOULDER (02/09/16) X-RAY EXAM OF WRIST (02/09/16) Problem List Initiated/Reviewed/Updated: Yes My Orders Last 24 Hours: My Active Orders 11/14/17 10:08 Ketorolac [Toradol] 15 mg IVPUSH Q6H PRN Ketorolac [Toradol] 30 mg IVPUSH ONETIME ONE Plan: ASSESSMENT AND PLAN Acute right upper quadrant abdominal pain with nausea - CT did not show any acute pathology in the abdomen and especially in the right upper quadrant. Pain was initially better but worse again. No obvious cause for the increased pain and examination is benign. Infection/inflammation possible there is some pain with gentle manipulation of the T-tube. There appears to be some leaking from the T-tube as well. 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 There does appear to be a new fistula or 2 forming in the upper right portion of the wound but it is very small at this time. She is on TPN. Surgical team is managing the wound care. Hypokalemia - improved with supplementation. -daily labs -Continue TPN Kel Tabor M.D.
[2017-11-14] MEDS ORDERED: Ketorolac 30 MG/ML SDV IVPUSH ONE (10:20)
--- NOTE | 2017-11-14 12:23 | PCM.PN ---
- General Info Date of Service: 11/14/17 Admission Dx/Problem (Free Text): Admission Diagnosis/Problem Admission Diagnosis/Problem Fistula of intestine Functional Status: Reports: Pain Controlled, Tolerating Diet (Small amount allowed. ), Ambulating, Urinating - Review of Systems General: Reports: No Symptoms HEENT: Reports: No Symptoms Pulmonary: Reports: No Symptoms Cardiovascular: Reports: No Symptoms Gastrointestinal: Reports: Other (Flank pain, unremarkable CT scan 2 days ago.) Genitourinary: Reports: No Symptoms Musculoskeletal: Reports: No Symptoms Skin: Reports: Other (Open abdomen) Neurological: Reports: No Symptoms Psychiatric: Reports: No Symptoms - Patient Data Vitals - Most Recent: Last Vital Signs Temp 98.8 F 11/14/17 11:01 Pulse 74 11/14/17 11:01 Resp 18 11/14/17 11:01 BP 94/53 L 11/14/17 11:01 Pulse Ox 97 11/14/17 11:01 Weight - Most Recent: 167 lb 9.6 oz I&O - Last 24 Hours: Intake & Output 11/13/17 11/14/17 11/14/17 22:59 06:59 14:59 Intake Total 1616 1246 300 Balance 1616 1246 300 Lab Results Last 24 Hours: Laboratory Results - last 24 hr 11/14/17 11/14/17 11/14/17 Range/Units 07:59 07:59 07:59 WBC 12.3 H (4.5-11.0) K/uL RBC 3.46 (3.30-5.50) M/uL Hgb 9.1 L (12.0-15.0) g/dL Hct 30.1 L (36.0-48.0) % MCV 87 (80-98) fL MCH 26 L (27-31) pg MCHC 30 L (32-36) % Plt Count 572 H (150-400) K/uL Sodium 141 (140-148) mmol/L Potassium 3.9 (3.6-5.2) mmol/L Chloride 107 (100-108) mmol/L Carbon Dioxide 26 (21-32) mmol/L Anion Gap 7.6 (5.0-14.0) mmol/L BUN 21 H (7-18) mg/dL Creatinine 1.0 (0.6-1.0) mg/dL Est Cr Clr Drug Dosing 51.02 mL/min Estimated GFR (MDRD) 56 L (>60) Glucose 112 H (74-106) mg/dL Calcium 8.9 (8.5-10.1) mg/dL Total Bilirubin 0.2 (0.2-1.0) mg/dL AST 32 (15-37) U/L ALT 42 (12-78) U/L Alkaline Phosphatase 363 H (46-116) U/L Total Protein 6.1 L (6.4-8.2) g/dL Albumin 1.6 L (3.4-5.0) g/dL Globulin 4.5 H (2.3-3.5) g/dL Albumin/Globulin Ratio 0.4 L (1.2-2.2) Vancomycin Trough 12.6 (10.0-20.0) ug/mL Med Orders - Current: Current Medications Acetaminophen (Tylenol) 650 mg RECTAL Q6H PRN PRN Reason: Fever Albuterol/Ipratropium (Duoneb 3.0-0.5 Mg/3 Ml) 3 ml NEB Q4H PRN PRN Reason: Wheezing Bacitracin (Bacitracin Oint 1 Gm) 1 dose TOP DAILY [facility] Last Admin: 11/14/17 09:01 Dose: 1 dose Bisacodyl (Dulcolax) 5 mg PO DAILY PRN PRN Reason: Constipation Cholecalciferol (Vitamin D3) 50,000 unit PO Mo@0900 [facility] Diazepam (Valium.) 5 mg PO QID PRN PRN Reason: Anxiety Last Admin: 11/14/17 08:14 Dose: 5 mg Docusate Sodium (Colace) 100 mg PO BID PRN PRN Reason: Constipation Fenofibrate (Fenofibrate) 134 mg PO DAILY [facility] Last Admin: 11/14/17 09:00 Dose: 134 mg Heparin Sodium (Porcine) (Heparin Lock Flush 100 Units/Ml) 500 units FLUSH ASDIRECTED PRN PRN Reason: maintanence Last Admin: 11/14/17 07:54 Dose: 500 units Sodium Chloride (Normal Saline) 1,000 mls @ 0 mls/hr IV TITRATE [facility] PRN Reason: Protocol Last Admin: 11/13/17 21:57 Dose: 49.2 mls/hr Vancomycin HCl 1.2 gm/ Sodium (Chloride) 250 mls @ 167 mls/hr IV Q24H [facility] Last Admin: 11/14/17 08:44 Dose: 167 mls/hr Multivitamins/Minerals 10 ml/Chromium/Copper/Manganese/Seleni/Zn 1 ml/ Amino Ac/ Electrol/Dextrose/Calcium 2,011 mls @ 60 mls/hr IV .Q24H [facility] Non-Formulary Medication (Nf Drug) 1,590 mls @ 66.2 mls/hr IV .Q24H [facility] Last Infusion: 11/13/17 21:42 Dose: 42.9 mls/hr FAT EMUL/SOY/MCT/OLIV/FISH OIL (Smoflipid 20% Iv Fat Emulsion) 100 mls @ 6.2 mls/hr IV .Q16H8M [facility] Meropenem 1 gm/ Sodium (Chloride) 50 mls @ 100 mls/hr IV Q8H [facility] Last Admin: 11/14/17 08:01 Dose: 100 mls/hr Ketorolac Tromethamine (Toradol) 15 mg IVPUSH Q6H PRN PRN Reason: Pain Stop: 11/19/17 10:08 Metoprolol Tartrate (Lopressor) 25 mg PO BID [facility] Last Admin: 11/14/17 09:00 Dose: 25 mg Mirtazapine (Remeron) 15 mg PO BEDTIME [facility] Last Admin: 11/13/17 21:51 Dose: 15 mg Morphine Sulfate (Morphine) 4 - 8 mg IVPUSH Q2H PRN PRN Reason: Pain Last Admin: 11/13/17 09:30 Dose: 8 mg Morphine Sulfate (Morphine) 15 - 30 mg PO Q4H PRN PRN Reason: Pain Last Admin: 11/14/17 08:12 Dose: 30 mg Ondansetron HCl (Zofran) 4 - 8 mg IVPUSH Q4H PRN PRN Reason: Nausea/Vomiting Last Admin: 11/12/17 16:10 Dose: 8 mg Pantoprazole Sodium (Protonix) 40 mg PO BEDTIME [facility] Last Admin: 11/13/17 21:51 Dose: 40 mg Scopolamine (Transderm-Scop) 1.5 mg TOP Q72H PRN PRN Reason: Nausea Trazodone HCl (Trazodone) 100 mg PO BEDTIME PRN PRN Reason: Insomnia Last Admin: 11/13/17 21:51 Dose: 100 mg Venlafaxine HCl (Effexor Xr) 300 mg PO DAILY [facility] Last Admin: 11/14/17 09:00 Dose: 300 mg Zolpidem Tartrate (Ambien) 5 mg PO BEDTIME PRN PRN Reason: Sleep Last Admin: 11/13/17 21:52 Dose: 5 mg Discontinued Medications Piperacillin/Tazobactam/ (Dextrose 4.5 gm/ Premix) 100 mls @ 200 mls/hr IV Q8H [facility] Last Admin: 11/12/17 17:10 Dose: Not Given Multivitamins/Minerals 10 ml/Chromium/Copper/Manganese/Seleni/Zn 1 ml/ Amino Ac/ Electrol/Dextrose/Calcium 2,011 mls @ 60 mls/hr IV .Q24H [facility] FAT EMUL/SOY/MCT/OLIV/FISH OIL (Smoflipid 20% Iv Fat Emulsion) 100 mls @ 6.2 mls/hr IV .Q16H8M [facility] Stop: 11/16/17 00:30 Potassium Chloride 40 meq/ (Premix) 100 mls @ 25 mls/hr IV ONETIME ONE Stop: 11/12/17 14:59 Last Admin: 11/12/17 12:52 Dose: 25 mls/hr Lactated Ringer's (Ringers, Lactated) 500 mls @ 250 mls/hr IV ASDIRECTED [facility] Stop: 11/12/17 15:16 Sodium Chloride (Normal Saline) 75 mls @ 3.5 mls/sec IV ASDIRECTED [facility] Stop: 11/12/17 16:00 Last Admin: 11/12/17 14:15 Dose: 3.5 mls/sec Potassium Chloride 20 meq/Lidocaine HCl 2 ml/ Sodium Chloride 112 mls @ 50 mls/ hr IV Q2H [facility] Stop: 11/12/17 21:29 Last Admin: 11/12/17 20:20 Dose: Not Given Potassium Chloride (Kcl 20 Meq In Water 100 Ml) Confirm Administered Dose 100 mls @ as directed .ROUTE .STK-MED ONE Stop: 11/12/17 19:49 Last Admin: 11/12/17 20:08 Dose: Not Given Potassium Chloride (Kcl 20 Meq In Water 100 Ml) Confirm Administered Dose 100 mls @ as directed .ROUTE .STK-MED ONE Stop: 11/12/17 19:50 Last Admin: 11/12/17 20:08 Dose: Not Given Potassium Chloride (Kcl 20 Meq In Water 100 Ml) 100 mls @ 50 mls/hr IV Q2H [facility] Stop: 11/13/17 00:59 Last Admin: 11/12/17 22:16 Dose: 50 mls/hr Iopamidol (Isovue-300 (61%)) 100 ml IV . DIRECTED PRN PRN Reason: RADIOLOGY EXAM Stop: 11/13/17 13:53 Last Admin: 11/12/17 14:15 Dose: 100 ml Ketorolac Tromethamine (Toradol) 30 mg IVPUSH ONETIME ONE Stop: 11/14/17 10:21 Last Admin: 11/14/17 10:41 Dose: 30 mg Morphine Sulfate (Morphine) 1 - 2 mg IVPUSH Q2H PRN PRN Reason: Pain Last Admin: 11/12/17 13:21 Dose: 2 mg Sodium Chloride (Saline Flush) 10 ml FLUSH ONETIME ONE Stop: 11/12/17 13:53 Last Admin: 11/12/17 14:09 Dose: 10 ml Tramadol HCl (Ultram) 25 mg PO Q6H PRN PRN Reason: Pain - Exam General: Alert, Oriented, Cooperative, No Acute Distress Lungs: Clear to Auscultation, Normal Respiratory Effort Cardiovascular: Regular Rate, Regular Rhythm GI/Abdominal Exam: Normal Bowel Sounds, Other (Open abdomen. T-tube output way down, may be leaking back out along catheter. Bilirubin is unremarkable. ) Back Exam: Normal Inspection Extremities: Normal Inspection Skin: Warm, Dry. No: Intact (Open abdomen. ) Neurological: No New Focal Deficit Psy/Mental Status: Alert, Normal Affect, Normal Mood - Problem List & Annotations (1) Abdominal wall fistula SNOMED Code(s): 453928816 Code(s): K63.2 - FISTULA OF INTESTINE Status: Acute Current Visit: No - Problem List Review Problem List Initiated/Reviewed/Updated: Yes - Assessment Assessment:: Her WBC is down. She has no fever. 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 A new PICC could not be placed in her left arm, not sure she needs a new PICC. Open abdomen. Albumin is low at 1.6. - Plan Plan:: No change in plans. Continue TPN, antibiotics. No change.
[2017-11-14] MEDS: Non-Formulary Medication 1 EACH IV SCH ×2 (13:58)
[2017-11-14] MEDS: Sodium Chloride 0.9% 1,000 ML IV SCH (14:05)
[2017-11-14] MEDS: HYDROmorphone 2 MG Tab PO PRN ×3 (15:20→21:00)
[2017-11-14] MEDS: HYDROmorphone 0.5 MG/0.5 ML Syringe IVPUSH PRN ×3 (15:23→21:06)
[2017-11-14] MEDS: traZODone 50 MG Tab PO PRN (21:00)
[2017-11-14] MEDS: Zolpidem 5 MG Tab PO PRN (21:00)
[2017-11-14] MEDS: Pantoprazole 40 MG Tab.CR PO SCH (21:01)
[2017-11-14] MEDS: Mirtazapine 15 MG Tab PO SCH (21:01)
[2017-11-15] MEDS: HYDROmorphone 2 MG Tab PO PRN ×2 (05:10→09:24)
[2017-11-15] MEDS: HYDROmorphone 0.5 MG/0.5 ML Syringe IVPUSH PRN ×2 (05:21→09:30)
[2017-11-15] MEDS: Vancomycin 1.2 GM in Sodium Chloride 0.9% 250 ML IV SCH (08:01)
[2017-11-15] MEDS: Sodium Chloride 0.9% 1,000 ML IV SCH ×2 (09:42→21:04)
[2017-11-15] MEDS: Venlafaxine 75 MG Cap.ER PO SCH (09:53)
[2017-11-15] MEDS: Bacitracin Oint 1 GM U/D Packet TOP SCH (09:53)
[2017-11-15] MEDS: Fenofibrate,Micronized 67 MG Cap PO SCH (09:53)
[2017-11-15] MEDS: Metoprolol Tartrate 25 MG Tab PO SCH ×2 (09:53→22:35)
[2017-11-15] MEDS: Diazepam 5 MG Tab PO PRN (09:58)
--- NOTE | 2017-11-15 10:28 | PCM.CONSN ---
- General Info Date of Service: 11/15/17 Functional Status: Reports: Pain Controlled, Tolerating Diet - Review of Systems General: Denies: Fever Gastrointestinal: Reports: Abdominal Pain Systems Review Comment:: No acute events overnight. No fevers. Heart rate has improved some. Still having a fair amount of right upper quadrant abdominal pain but laboratory studies are stable or improved. No nausea or vomiting. She has not had any drainage from her biliary tube. White blood count is stable. Tolerating diet with no change in symptoms. - Patient Data Vitals - Most Recent: Last Vital Signs Temp 36.4 C 11/15/17 07:18 Pulse 93 11/15/17 09:53 Resp 16 11/15/17 07:18 BP 110/55 L 11/15/17 09:53 Pulse Ox 94 L 11/15/17 07:18 Weight - Most Recent: 78.562 kg I&O - Last 24 Hours: Intake & Output 11/14/17 11/15/17 11/15/17 22:59 06:59 14:59 Intake Total 1407 1495 Output Total 1570 Balance -163 1495 Lab Results Last 24 Hours: Laboratory Results - last 24 hr 11/15/17 11/15/17 Range/Units 05:24 05:24 WBC 12.7 H (4.5-11.0) K/uL RBC 3.34 (3.30-5.50) M/uL Hgb 8.7 L (12.0-15.0) g/dL Hct 28.8 L (36.0-48.0) % MCV 86 (80-98) fL MCH 26 L (27-31) pg MCHC 30 L (32-36) % Plt Count 590 H (150-400) K/uL Sodium 140 (140-148) mmol/L Potassium 3.7 (3.6-5.2) mmol/L Chloride 107 (100-108) mmol/L Carbon Dioxide 25 (21-32) mmol/L Anion Gap 8.2 (5.0-14.0) mmol/L BUN 19 H (7-18) mg/dL Creatinine 1.0 (0.6-1.0) mg/dL Est Cr Clr Drug Dosing 51.02 mL/min Estimated GFR (MDRD) 56 L (>60) Glucose 109 H (74-106) mg/dL Calcium 8.4 L (8.5-10.1) mg/dL Total Bilirubin 0.2 (0.2-1.0) mg/dL AST 28 (15-37) U/L ALT 35 (12-78) U/L Alkaline Phosphatase 340 H (46-116) U/L Total Protein 6.0 L (6.4-8.2) g/dL Albumin 1.5 L (3.4-5.0) g/dL Globulin 4.5 H (2.3-3.5) g/dL Albumin/Globulin Ratio 0.3 L (1.2-2.2) Med Orders - Current: Current Medications Acetaminophen (Tylenol) 650 mg RECTAL Q6H PRN PRN Reason: Fever Albuterol/Ipratropium (Duoneb 3.0-0.5 Mg/3 Ml) 3 ml NEB Q4H PRN PRN Reason: Wheezing Bacitracin (Bacitracin Oint 1 Gm) 1 dose TOP DAILY [facility] Last Admin: 11/15/17 09:53 Dose: 1 dose Bisacodyl (Dulcolax) 5 mg PO DAILY PRN PRN Reason: Constipation Cholecalciferol (Vitamin D3) 50,000 unit PO Mo@0900 [facility] Diazepam (Valium.) 5 mg PO QID PRN PRN Reason: Anxiety Last Admin: 11/15/17 09:58 Dose: 5 mg Docusate Sodium (Colace) 100 mg PO BID PRN PRN Reason: Constipation Fenofibrate (Fenofibrate) 134 mg PO DAILY [facility] Last Admin: 11/15/17 09:53 Dose: 134 mg Heparin Sodium (Porcine) (Heparin Lock Flush 100 Units/Ml) 500 units FLUSH ASDIRECTED PRN PRN Reason: maintanence Last Admin: 11/14/17 07:54 Dose: 500 units Sodium Chloride (Normal Saline) 1,000 mls @ 0 mls/hr IV TITRATE [facility] PRN Reason: Protocol Last Admin: 11/15/17 09:42 Dose: 15.6 mls/hr Multivitamins/Minerals 10 ml/Chromium/Copper/Manganese/Seleni/Zn 1 ml/ Amino Ac/ Electrol/Dextrose/Calcium 2,011 mls @ 60 mls/hr IV .Q24H [facility] Non-Formulary Medication (Nf Drug) 1,590 mls @ 66.2 mls/hr IV .Q24H [facility] Last Infusion: 11/14/17 21:14 Dose: 65.4 mls/hr FAT EMUL/SOY/MCT/OLIV/FISH OIL (Smoflipid 20% Iv Fat Emulsion) 100 mls @ 6.2 mls/hr IV .Q16H8M [facility] Meropenem 1 gm/ Sodium (Chloride) 50 mls @ 100 mls/hr IV Q8H [facility] Last Admin: 11/15/17 07:21 Dose: 100 mls/hr Metoprolol Tartrate (Lopressor) 25 mg PO BID [facility] Last Admin: 11/15/17 09:53 Dose: 25 mg Mirtazapine (Remeron) 15 mg PO BEDTIME [facility] Last Admin: 11/14/17 21:01 Dose: 15 mg Morphine Sulfate (Morphine) 4 - 8 mg IVPUSH Q2H PRN PRN Reason: Pain (severe 7-10) Morphine Sulfate (Morphine) 15 - 30 mg PO Q4H PRN PRN Reason: Pain Ondansetron HCl (Zofran) 4 - 8 mg IVPUSH Q4H PRN PRN Reason: Nausea/Vomiting Last Admin: 11/12/17 16:10 Dose: 8 mg Pantoprazole Sodium (Protonix) 40 mg PO BEDTIME [facility] Last Admin: 11/14/17 21:01 Dose: 40 mg Scopolamine (Transderm-Scop) 1.5 mg TOP Q72H PRN PRN Reason: Nausea Trazodone HCl (Trazodone) 100 mg PO BEDTIME PRN PRN Reason: Insomnia Last Admin: 11/14/17 21:00 Dose: 100 mg Venlafaxine HCl (Effexor Xr) 300 mg PO DAILY [facility] Last Admin: 11/15/17 09:53 Dose: 300 mg Zolpidem Tartrate (Ambien) 5 mg PO BEDTIME PRN PRN Reason: Sleep Last Admin: 11/14/17 21:00 Dose: 5 mg Discontinued Medications Hydromorphone HCl (Dilaudid) 0.5 mg IVPUSH Q2H PRN PRN Reason: Pain (severe 7-10) Last Admin: 11/15/17 09:30 Dose: 0.5 mg Hydromorphone HCl (Dilaudid) 2 mg PO Q3H PRN PRN Reason: Pain Last Admin: 11/15/17 09:24 Dose: 2 mg Piperacillin/Tazobactam/ (Dextrose 4.5 gm/ Premix) 100 mls @ 200 mls/hr IV Q8H [facility] Last Admin: 11/12/17 17:10 Dose: Not Given Multivitamins/Minerals 10 ml/Chromium/Copper/Manganese/Seleni/Zn 1 ml/ Amino Ac/ Electrol/Dextrose/Calcium 2,011 mls @ 60 mls/hr IV .Q24H [facility] Vancomycin HCl 1.2 gm/ Sodium (Chloride) 250 mls @ 167 mls/hr IV Q24H [facility] Last Admin: 11/15/17 08:01 Dose: 167 mls/hr FAT EMUL/SOY/MCT/OLIV/FISH OIL (Smoflipid 20% Iv Fat Emulsion) 100 mls @ 6.2 mls/hr IV .Q16H8M [facility] Stop: 11/16/17 00:30 Potassium Chloride 40 meq/ (Premix) 100 mls @ 25 mls/hr IV ONETIME ONE Stop: 11/12/17 14:59 Last Admin: 11/12/17 12:52 Dose: 25 mls/hr Lactated Ringer's (Ringers, Lactated) 500 mls @ 250 mls/hr IV ASDIRECTED [facility] Stop: 11/12/17 15:16 Sodium Chloride (Normal Saline) 75 mls @ 3.5 mls/sec IV ASDIRECTED [facility] Stop: 11/12/17 16:00 Last Admin: 11/12/17 14:15 Dose: 3.5 mls/sec Potassium Chloride 20 meq/Lidocaine HCl 2 ml/ Sodium Chloride 112 mls @ 50 mls/ hr IV Q2H [facility] Stop: 11/12/17 21:29 Last Admin: 11/12/17 20:20 Dose: Not Given Potassium Chloride (Kcl 20 Meq In Water 100 Ml) Confirm Administered Dose 100 mls @ as directed .ROUTE .STK-MED ONE Stop: 11/12/17 19:49 Last Admin: 11/12/17 20:08 Dose: Not Given Potassium Chloride (Kcl 20 Meq In Water 100 Ml) Confirm Administered Dose 100 mls @ as directed .ROUTE .STK-MED ONE Stop: 11/12/17 19:50 Last Admin: 11/12/17 20:08 Dose: Not Given Potassium Chloride (Kcl 20 Meq In Water 100 Ml) 100 mls @ 50 mls/hr IV Q2H [facility] Stop: 11/13/17 00:59 Last Admin: 11/12/17 22:16 Dose: 50 mls/hr Iopamidol (Isovue-300 (61%)) 100 ml IV . DIRECTED PRN PRN Reason: RADIOLOGY EXAM Stop: 11/13/17 13:53 Last Admin: 11/12/17 14:15 Dose: 100 ml Ketorolac Tromethamine (Toradol) 30 mg IVPUSH ONETIME ONE Stop: 11/14/17 10:21 Last Admin: 11/14/17 10:41 Dose: 30 mg Ketorolac Tromethamine (Toradol) 15 mg IVPUSH Q6H PRN PRN Reason: Pain Stop: 11/19/17 10:08 Last Admin: 11/14/17 17:01 Dose: 15 mg Morphine Sulfate (Morphine) 1 - 2 mg IVPUSH Q2H PRN PRN Reason: Pain Last Admin: 11/12/17 13:21 Dose: 2 mg Morphine Sulfate (Morphine) 4 - 8 mg IVPUSH Q2H PRN PRN Reason: Pain Last Admin: 11/13/17 09:30 Dose: 8 mg Morphine Sulfate (Morphine) 15 - 30 mg PO Q4H PRN PRN Reason: Pain Last Admin: 11/14/17 12:20 Dose: 30 mg Sodium Chloride (Saline Flush) 10 ml FLUSH ONETIME ONE Stop: 11/12/17 13:53 Last Admin: 11/12/17 14:09 Dose: 10 ml Tramadol HCl (Ultram) 25 mg PO Q6H PRN PRN Reason: Pain - Exam Quality Assessment: No: Supplemental Oxygen General: Alert, Oriented, Cooperative, No Acute Distress Neck: Supple Lungs: Normal Respiratory Effort Cardiovascular: Regular Rate, Regular Rhythm GI/Abdominal Exam: Soft, No Distention, Other (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 Surgical drain in RUQ) Extremities: No Pedal Edema Psy/Mental Status: Alert, Normal Affect Consult PN Assessment/Plan Procedures: Procedures AIRWAY INHALATION TREATMENT (10/28/14) ASSAY OF ACETAMINOPHEN (05/22/14) ASSAY OF CK (CPK) (10/18/15) ASSAY OF ETHANOL (05/22/14) ASSAY OF LACTIC ACID (08/10/17) ASSAY OF LIPASE (07/23/16) ASSAY OF MAGNESIUM (08/10/17) ASSAY OF NATRIURETIC PEPTIDE (08/10/17) ASSAY OF PHOSPHORUS (08/10/17) ASSAY OF SALICYLATE (05/22/14) ASSAY OF TROPONIN QUANT (08/10/17) ASSAY OF VANCOMYCIN (08/10/17) BLEEDING TIME TEST (07/25/17) BLOOD CULTURE FOR BACTERIA (08/10/17) BLOOD GASES ANY COMBINATION (07/23/16) BLOOD TRANSFUSION SERVICE (08/10/17) BLOOD TYPING SEROLOGIC ABO (08/10/17) BLOOD TYPING SEROLOGIC RH(D) (08/10/17) C DIFF AMPLIFIED PROBE (07/25/17) C-REACTIVE PROTEIN (07/03/16) CHEST X-RAY 1 VIEW FRONTAL (08/10/17) CHEST X-RAY 2VW FRONTAL&LATL (07/25/17) COMP SCREEN MAMMOGRAM ADD-ON (03/01/15) COMPATIBILITY TEST ANTIGLOB (08/10/17) COMPATIBILITY TEST SPIN (08/10/17) COMPLETE CBC AUTOMATED (08/10/17) COMPLETE CBC W/AUTO DIFF WBC (08/10/17) COMPREHEN METABOLIC PANEL (08/10/17) CREATINE MB FRACTION (08/10/17) CT ABD & PELV W/CONTRAST (07/25/17) CT ABD & PELVIS W/O CONTRAST (08/10/17) CT ANGIOGRAPHY CHEST (07/23/16) CT HEAD/BRAIN W/O DYE (01/03/15) CT THORAX W/O DYE (04/19/15) CULTR BACTERIA EXCEPT BLOOD (08/10/17) CULTURE OTHR SPECIMN AEROBIC (08/10/17) CULTURE SCREEN ONLY (12/12/14) EGD BIOPSY SINGLE/MULTIPLE (12/12/14) ELECTROCARDIOGRAM TRACING (05/20/17) EMERGENCY DEPT VISIT (08/10/17) EMERGENCY DEPT VISIT (08/07/17) EMERGENCY DEPT VISIT (01/31/17) EMERGENCY DEPT VISIT (03/28/16) EMERGENCY DEPT VISIT (02/09/16) EMERGENCY DEPT VISIT (11/13/15) EMERGENCY DEPT VISIT (10/18/15) EMERGENCY DEPT VISIT (08/16/15) EMERGENCY DEPT VISIT (06/26/15) EMERGENCY DEPT VISIT (10/28/14) EMERGENCY DEPT VISIT (07/31/14) EMERGENCY DEPT VISIT (06/23/14) EMERGENCY DEPT VISIT (05/22/14) EVALUATION OF WHEEZING (11/28/14) EXTRACRANIAL BILAT STUDY (06/17/17) EXTREMITY STUDY (08/10/17) FIBRIN DEGRADATION QUANT (06/26/15) GLUCOSE BLOOD TEST (08/10/17) HEMOGLOBIN (08/10/17) HYDRATE IV INFUSION ADD-ON (06/23/14) HYDRATION IV INFUSION INIT (05/22/14) INJECT SPINE LUMBAR/SACRAL (06/05/16) INJECT TRIGGER POINTS 3/> (06/05/16) INSERT PICC CATH (08/10/17) MANUAL THERAPY 1/> REGIONS (02/05/16) MEASURE BLOOD OXYGEN LEVEL (07/25/17) METABOLIC PANEL TOTAL CA (08/10/17) MRI BRAIN STEM W/O & W/DYE (01/11/15) MRI JOINT UPR EXTREM W/O DYE (05/29/15) MRI LUMBAR SPINE W/O DYE (06/02/14) MRI NECK SPINE W/O DYE (03/01/15) NEG PRESS WOUND TX </=50 CM (08/10/17) NEUROMUSCULAR REEDUCATION (02/05/16) OBSERV/HOSP SAME DATE (05/22/14) OT EVALUATION (03/24/15) OVA AND PARASITES SMEARS (07/25/17) PROTHROMBIN TIME (02/09/16) PT EVALUATION (02/05/16) RBC ANTIBODY SCREEN (08/10/17) ROUTINE VENIPUNCTURE (08/10/17) SKIN SPLT GRFT T/A/L ADD-ON (11/28/16) SKIN SPLT GRFT TRNK/ARM/LEG (11/28/16) SMEAR COMPLEX STAIN (07/25/17) SMEAR GRAM STAIN (08/10/17) THER/PROPH/DIAG INJ IV PUSH (07/03/16) THER/PROPH/DIAG INJ SC/IM (11/13/15) THER/PROPH/DIAG IV INF INIT (08/10/17) THROMBOPLASTIN TIME PARTIAL (02/18/15) TISSUE EXAM BY PATHOLOGIST (08/10/17) TISSUE EXAM BY PATHOLOGIST (07/25/17) TTE W/DOPPLER COMPLETE (07/03/17) TX/PRO/DX INJ NEW DRUG ADDON (07/03/16) ULTRASOUND THERAPY (02/05/16) URINALYSIS AUTO W/SCOPE (08/10/17) URINE CULTURE/COLONY COUNT (08/10/17) WITHDRAWAL OF ARTERIAL BLOOD (07/23/16) WOUND PREP ADDL 100 CM (11/28/16) WOUND PREP TRK/ARM/LEG (11/28/16) X-RAY EXAM HIP UNI 2-3 VIEWS (11/13/15) X-RAY EXAM L-2 SPINE 4/>VWS (07/31/14) X-RAY EXAM OF ABDOMEN (08/10/17) X-RAY EXAM OF ABDOMEN (07/25/17) X-RAY EXAM OF HIP (07/31/14) X-RAY EXAM OF SHOULDER (02/09/16) X-RAY EXAM OF WRIST (02/09/16) Problem List Initiated/Reviewed/Updated: Yes My Orders Last 24 Hours: My Active Orders 11/15/17 10:25 Morphine 15 - 30 mg PO Q4H PRN Morphine 4 - 8 mg IVPUSH Q2H PRN Plan: ASSESSMENT AND PLAN Acute right upper quadrant abdominal pain with nausea - CT did not show any acute pathology in the abdomen and especially in the right upper quadrant. Pain was initially better but has been worse the past couple of days. Not much improvement with Toradol or Dilaudid. Patient wishes to go back to morphine. Still some concern for cholangitis but clinically seems to be getting better with improving laboratory studies. 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 There does appear to be a new fistula or 2 forming in the upper right portion of the wound but it is very small at this time. She is on TPN. Surgical team is managing the wound care. This is complicated by severe protein calorie malnutrition. Hypokalemia - improved with supplementation. -daily labs -Continue TPN Kel Tabor M.D.
--- NOTE | 2017-11-15 11:38 | PCM.PN ---
- General Info Date of Service: 11/15/17 Admission Dx/Problem (Free Text): Admission Diagnosis/Problem Admission Diagnosis/Problem Fistula of intestine Subjective Update: She denies complaints except for right flank pain which she has been having. Functional Status: Reports: Pain Controlled, Tolerating Diet, Ambulating, Urinating - Review of Systems General: Reports: No Symptoms HEENT: Reports: No Symptoms Pulmonary: Reports: No Symptoms Cardiovascular: Reports: No Symptoms Gastrointestinal: Reports: Other (Open abdomen with fistulae. Right flank pain. ) Genitourinary: Reports: No Symptoms Musculoskeletal: Reports: No Symptoms Skin: Reports: No Symptoms Neurological: Reports: No Symptoms Psychiatric: Reports: No Symptoms - Patient Data Vitals - Most Recent: Last Vital Signs Temp 98.8 F 11/15/17 11:01 Pulse 82 11/15/17 11:01 Resp 16 11/15/17 11:01 BP 115/50 L 11/15/17 11:01 Pulse Ox 96 11/15/17 11:01 Weight - Most Recent: 173 lb 3.2 oz I&O - Last 24 Hours: Intake & Output 11/14/17 11/15/17 11/15/17 22:59 06:59 14:59 Intake Total 1407 1495 300 Output Total 1570 625 Balance -163 1495 -325 Lab Results Last 24 Hours: Laboratory Results - last 24 hr 11/15/17 11/15/17 Range/Units 05:24 05:24 WBC 12.7 H (4.5-11.0) K/uL RBC 3.34 (3.30-5.50) M/uL Hgb 8.7 L (12.0-15.0) g/dL Hct 28.8 L (36.0-48.0) % MCV 86 (80-98) fL MCH 26 L (27-31) pg MCHC 30 L (32-36) % Plt Count 590 H (150-400) K/uL Sodium 140 (140-148) mmol/L Potassium 3.7 (3.6-5.2) mmol/L Chloride 107 (100-108) mmol/L Carbon Dioxide 25 (21-32) mmol/L Anion Gap 8.2 (5.0-14.0) mmol/L BUN 19 H (7-18) mg/dL Creatinine 1.0 (0.6-1.0) mg/dL Est Cr Clr Drug Dosing 51.02 mL/min Estimated GFR (MDRD) 56 L (>60) Glucose 109 H (74-106) mg/dL Calcium 8.4 L (8.5-10.1) mg/dL Total Bilirubin 0.2 (0.2-1.0) mg/dL AST 28 (15-37) U/L ALT 35 (12-78) U/L Alkaline Phosphatase 340 H (46-116) U/L Total Protein 6.0 L (6.4-8.2) g/dL Albumin 1.5 L (3.4-5.0) g/dL Globulin 4.5 H (2.3-3.5) g/dL Albumin/Globulin Ratio 0.3 L (1.2-2.2) Med Orders - Current: Current Medications Acetaminophen (Tylenol) 650 mg RECTAL Q6H PRN PRN Reason: Fever Albuterol/Ipratropium (Duoneb 3.0-0.5 Mg/3 Ml) 3 ml NEB Q4H PRN PRN Reason: Wheezing Bacitracin (Bacitracin Oint 1 Gm) 1 dose TOP DAILY [facility] Last Admin: 11/15/17 09:53 Dose: 1 dose Bisacodyl (Dulcolax) 5 mg PO DAILY PRN PRN Reason: Constipation Cholecalciferol (Vitamin D3) 50,000 unit PO Mo@0900 [facility] Diazepam (Valium.) 5 mg PO QID PRN PRN Reason: Anxiety Last Admin: 11/15/17 09:58 Dose: 5 mg Docusate Sodium (Colace) 100 mg PO BID PRN PRN Reason: Constipation Fenofibrate (Fenofibrate) 134 mg PO DAILY [facility] Last Admin: 11/15/17 09:53 Dose: 134 mg Heparin Sodium (Porcine) (Heparin Lock Flush 100 Units/Ml) 500 units FLUSH ASDIRECTED PRN PRN Reason: maintanence Last Admin: 11/14/17 07:54 Dose: 500 units Sodium Chloride (Normal Saline) 1,000 mls @ 0 mls/hr IV TITRATE [facility] PRN Reason: Protocol Last Admin: 11/15/17 09:42 Dose: 15.6 mls/hr Multivitamins/Minerals 10 ml/Chromium/Copper/Manganese/Seleni/Zn 1 ml/ Amino Ac/ Electrol/Dextrose/Calcium 2,011 mls @ 60 mls/hr IV .Q24H [facility] Non-Formulary Medication (Nf Drug) 1,590 mls @ 66.2 mls/hr IV .Q24H [facility] Last Infusion: 11/14/17 21:14 Dose: 65.4 mls/hr FAT EMUL/SOY/MCT/OLIV/FISH OIL (Smoflipid 20% Iv Fat Emulsion) 100 mls @ 6.2 mls/hr IV .Q16H8M [facility] Meropenem 1 gm/ Sodium (Chloride) 50 mls @ 100 mls/hr IV Q8H [facility] Last Admin: 11/15/17 07:21 Dose: 100 mls/hr Metoprolol Tartrate (Lopressor) 25 mg PO BID [facility] Last Admin: 11/15/17 09:53 Dose: 25 mg Mirtazapine (Remeron) 15 mg PO BEDTIME [facility] Last Admin: 11/14/17 21:01 Dose: 15 mg Morphine Sulfate (Morphine) 4 - 8 mg IVPUSH Q2H PRN PRN Reason: Pain (severe 7-10) Morphine Sulfate (Morphine) 15 - 30 mg PO Q4H PRN PRN Reason: Pain Ondansetron HCl (Zofran) 4 - 8 mg IVPUSH Q4H PRN PRN Reason: Nausea/Vomiting Last Admin: 11/12/17 16:10 Dose: 8 mg Pantoprazole Sodium (Protonix) 40 mg PO BEDTIME [facility] Last Admin: 11/14/17 21:01 Dose: 40 mg Scopolamine (Transderm-Scop) 1.5 mg TOP Q72H PRN PRN Reason: Nausea Trazodone HCl (Trazodone) 100 mg PO BEDTIME PRN PRN Reason: Insomnia Last Admin: 11/14/17 21:00 Dose: 100 mg Venlafaxine HCl (Effexor Xr) 300 mg PO DAILY [facility] Last Admin: 11/15/17 09:53 Dose: 300 mg Zolpidem Tartrate (Ambien) 5 mg PO BEDTIME PRN PRN Reason: Sleep Last Admin: 11/14/17 21:00 Dose: 5 mg Discontinued Medications Hydromorphone HCl (Dilaudid) 0.5 mg IVPUSH Q2H PRN PRN Reason: Pain (severe 7-10) Last Admin: 11/15/17 09:30 Dose: 0.5 mg Hydromorphone HCl (Dilaudid) 2 mg PO Q3H PRN PRN Reason: Pain Last Admin: 11/15/17 09:24 Dose: 2 mg Piperacillin/Tazobactam/ (Dextrose 4.5 gm/ Premix) 100 mls @ 200 mls/hr IV Q8H [facility] Last Admin: 11/12/17 17:10 Dose: Not Given Multivitamins/Minerals 10 ml/Chromium/Copper/Manganese/Seleni/Zn 1 ml/ Amino Ac/ Electrol/Dextrose/Calcium 2,011 mls @ 60 mls/hr IV .Q24H [facility] Vancomycin HCl 1.2 gm/ Sodium (Chloride) 250 mls @ 167 mls/hr IV Q24H [facility] Last Admin: 11/15/17 08:01 Dose: 167 mls/hr FAT EMUL/SOY/MCT/OLIV/FISH OIL (Smoflipid 20% Iv Fat Emulsion) 100 mls @ 6.2 mls/hr IV .Q16H8M [facility] Stop: 11/16/17 00:30 Potassium Chloride 40 meq/ (Premix) 100 mls @ 25 mls/hr IV ONETIME ONE Stop: 11/12/17 14:59 Last Admin: 11/12/17 12:52 Dose: 25 mls/hr Lactated Ringer's (Ringers, Lactated) 500 mls @ 250 mls/hr IV ASDIRECTED [facility] Stop: 11/12/17 15:16 Sodium Chloride (Normal Saline) 75 mls @ 3.5 mls/sec IV ASDIRECTED [facility] Stop: 11/12/17 16:00 Last Admin: 11/12/17 14:15 Dose: 3.5 mls/sec Potassium Chloride 20 meq/Lidocaine HCl 2 ml/ Sodium Chloride 112 mls @ 50 mls/ hr IV Q2H [facility] Stop: 11/12/17 21:29 Last Admin: 11/12/17 20:20 Dose: Not Given Potassium Chloride (Kcl 20 Meq In Water 100 Ml) Confirm Administered Dose 100 mls @ as directed .ROUTE .STK-MED ONE Stop: 11/12/17 19:49 Last Admin: 11/12/17 20:08 Dose: Not Given Potassium Chloride (Kcl 20 Meq In Water 100 Ml) Confirm Administered Dose 100 mls @ as directed .ROUTE .STK-MED ONE Stop: 11/12/17 19:50 Last Admin: 11/12/17 20:08 Dose: Not Given Potassium Chloride (Kcl 20 Meq In Water 100 Ml) 100 mls @ 50 mls/hr IV Q2H [facility] Stop: 11/13/17 00:59 Last Admin: 11/12/17 22:16 Dose: 50 mls/hr Iopamidol (Isovue-300 (61%)) 100 ml IV . DIRECTED PRN PRN Reason: RADIOLOGY EXAM Stop: 11/13/17 13:53 Last Admin: 11/12/17 14:15 Dose: 100 ml Ketorolac Tromethamine (Toradol) 30 mg IVPUSH ONETIME ONE Stop: 11/14/17 10:21 Last Admin: 11/14/17 10:41 Dose: 30 mg Ketorolac Tromethamine (Toradol) 15 mg IVPUSH Q6H PRN PRN Reason: Pain Stop: 11/19/17 10:08 Last Admin: 11/14/17 17:01 Dose: 15 mg Morphine Sulfate (Morphine) 1 - 2 mg IVPUSH Q2H PRN PRN Reason: Pain Last Admin: 11/12/17 13:21 Dose: 2 mg Morphine Sulfate (Morphine) 4 - 8 mg IVPUSH Q2H PRN PRN Reason: Pain Last Admin: 11/13/17 09:30 Dose: 8 mg Morphine Sulfate (Morphine) 15 - 30 mg PO Q4H PRN PRN Reason: Pain Last Admin: 11/14/17 12:20 Dose: 30 mg Sodium Chloride (Saline Flush) 10 ml FLUSH ONETIME ONE Stop: 11/12/17 13:53 Last Admin: 11/12/17 14:09 Dose: 10 ml Tramadol HCl (Ultram) 25 mg PO Q6H PRN PRN Reason: Pain - Exam Quality Assessment: Central Line/PICC General: Alert, Oriented, Cooperative, No Acute Distress Lungs: Clear to Auscultation, Normal Respiratory Effort Cardiovascular: Regular Rate, Regular Rhythm GI/Abdominal Exam: Normal Bowel Sounds, Soft, Non-Tender, Other (Open abdomen with multiple fistulae. ) Extremities: Normal Inspection Skin: Warm, Dry. No: Intact (Open abdomen) Neurological: No New Focal Deficit Psy/Mental Status: Alert, Normal Affect, Normal Mood - Problem List & Annotations (1) Abdominal wall fistula SNOMED Code(s): 553676328 Code(s): K63.2 - FISTULA OF INTESTINE Status: Acute Current Visit: No - Problem List Review Problem List Initiated/Reviewed/Updated: Yes - Assessment Assessment:: Her WBC is down. She has no fever. 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 A new PICC could not be placed in her left arm, not sure she needs a new PICC. Open abdomen. Albumin is low at 1.6. T. bili still normal. - Plan Plan:: No change in plans. Continue TPN, antibiotics. No change. No change. Continue TPN and antibiotics.
[2017-11-15] MEDS: Morphine 4 MG/ML Syringe IVPUSH PRN ×4 (12:02→22:41)
[2017-11-15] MEDS: Non-Formulary Medication 1 EACH IV SCH ×2 (14:19)
[2017-11-15] MEDS: Morphine 15 MG Tab PO PRN ×2 (14:21→22:52)
[2017-11-15] MEDS: Mirtazapine 15 MG Tab PO SCH (22:32)
[2017-11-15] MEDS: Pantoprazole 40 MG Tab.CR PO SCH (22:35)
[2017-11-15] MEDS: Zolpidem 5 MG Tab PO PRN (22:39)
[2017-11-15] MEDS: traZODone 50 MG Tab PO PRN (22:40)
[2017-11-16] MEDS: Morphine 15 MG Tab PO PRN ×5 (05:26→21:38)
[2017-11-16] MEDS: Morphine 4 MG/ML Syringe IVPUSH PRN ×4 (05:27→21:37)
[2017-11-16] MEDS: Sodium Chloride 0.9% 1,000 ML IV SCH (09:00)
[2017-11-16] MEDS: Metoprolol Tartrate 25 MG Tab PO SCH ×2 (09:51→21:42)
[2017-11-16] MEDS: Fenofibrate,Micronized 67 MG Cap PO SCH (09:58)
[2017-11-16] MEDS: Venlafaxine 75 MG Cap.ER PO SCH (09:58)
--- NOTE | 2017-11-16 10:04 | PCM.PN ---
- General Info Date of Service: 11/16/17 Functional Status: Reports: Pain Controlled, Tolerating Diet - Review of Systems General: Denies: Fever Gastrointestinal: Reports: Abdominal Pain Systems Review Comment:: No acute events overnight. She did not have any fevers. Heart rate stable and white blood cell count down a little bit from the last few days. Ongoing right upper quadrant pain though this is a little better. Tolerating diet. No nausea or vomiting. Cultures are all negative. - Patient Data Vitals - Most Recent: Last Vital Signs Temp 36.4 C 11/16/17 09:24 Pulse 103 H 11/16/17 09:51 Resp 20 11/16/17 09:24 BP 109/57 L 11/16/17 09:51 Pulse Ox 95 11/16/17 09:24 Weight - Most Recent: 78.562 kg I&O - Last 24 Hours: Intake & Output 11/15/17 11/16/17 11/16/17 22:59 06:59 14:59 Intake Total 1452 1284 Output Total 1700 700 Balance -248 1284 -700 Lab Results Last 24 Hours: Laboratory Results - last 24 hr 11/16/17 11/16/17 Range/Units 05:20 05:20 WBC 10.3 (4.5-11.0) K/uL RBC 3.33 (3.30-5.50) M/uL Hgb 8.9 L (12.0-15.0) g/dL Hct 28.5 L (36.0-48.0) % MCV 86 (80-98) fL MCH 27 (27-31) pg MCHC 31 L (32-36) % Plt Count 599 H (150-400) K/uL Sodium 141 (140-148) mmol/L Potassium 3.6 (3.6-5.2) mmol/L Chloride 106 (100-108) mmol/L Carbon Dioxide 27 (21-32) mmol/L Anion Gap 11.6 (5.0-14.0) mmol/L BUN 14 (7-18) mg/dL Creatinine 0.9 (0.6-1.0) mg/dL Est Cr Clr Drug Dosing 56.68 mL/min Estimated GFR (MDRD) > 60 (>60) Glucose 107 H (74-106) mg/dL Calcium 8.5 (8.5-10.1) mg/dL Total Bilirubin 0.1 L (0.2-1.0) mg/dL AST 26 (15-37) U/L ALT 30 (12-78) U/L Alkaline Phosphatase 314 H (46-116) U/L Total Protein 5.9 L (6.4-8.2) g/dL Albumin 1.5 L (3.4-5.0) g/dL Globulin 4.4 H (2.3-3.5) g/dL Albumin/Globulin Ratio 0.3 L (1.2-2.2) Med Orders - Current: Current Medications Acetaminophen (Tylenol) 650 mg RECTAL Q6H PRN PRN Reason: Fever Albuterol/Ipratropium (Duoneb 3.0-0.5 Mg/3 Ml) 3 ml NEB Q4H PRN PRN Reason: Wheezing Bacitracin (Bacitracin Oint 1 Gm) 1 dose TOP DAILY [facility] Last Admin: 11/15/17 09:53 Dose: 1 dose Bisacodyl (Dulcolax) 5 mg PO DAILY PRN PRN Reason: Constipation Cholecalciferol (Vitamin D3) 50,000 unit PO Mo@0900 [facility] Diazepam (Valium.) 5 mg PO QID PRN PRN Reason: Anxiety Last Admin: 11/15/17 09:58 Dose: 5 mg Docusate Sodium (Colace) 100 mg PO BID PRN PRN Reason: Constipation Fenofibrate (Fenofibrate) 134 mg PO DAILY [facility] Last Admin: 11/16/17 09:58 Dose: 67 mg Heparin Sodium (Porcine) (Heparin Lock Flush 100 Units/Ml) 500 units FLUSH ASDIRECTED PRN PRN Reason: maintanence Last Admin: 11/14/17 07:54 Dose: 500 units Sodium Chloride (Normal Saline) 1,000 mls @ 0 mls/hr IV TITRATE [facility] PRN Reason: Protocol Last Admin: 11/15/17 21:04 Dose: 62.5 mls/hr Multivitamins/Minerals 10 ml/Chromium/Copper/Manganese/Seleni/Zn 1 ml/ Amino Ac/ Electrol/Dextrose/Calcium 2,011 mls @ 60 mls/hr IV .Q24H [facility] Non-Formulary Medication (Nf Drug) 1,590 mls @ 66.2 mls/hr IV .Q24H [facility] Stop: 11/16/17 13:59 Last Admin: 11/15/17 14:19 Dose: 65.4 mls/hr FAT EMUL/SOY/MCT/OLIV/FISH OIL (Smoflipid 20% Iv Fat Emulsion) 100 mls @ 6.2 mls/hr IV .Q16H8M [facility] Meropenem 1 gm/ Sodium (Chloride) 50 mls @ 100 mls/hr IV Q8H [facility] Last Admin: 11/16/17 09:14 Dose: 100 mls/hr Potassium Chloride 40 meq/ (Premix) 100 mls @ 25 mls/hr IV ONETIME ONE Stop: 11/16/17 12:54 Metoprolol Tartrate (Lopressor) 25 mg PO BID [facility] Last Admin: 11/16/17 09:51 Dose: 25 mg Mirtazapine (Remeron) 15 mg PO BEDTIME [facility] Last Admin: 11/15/17 22:32 Dose: 15 mg Morphine Sulfate (Morphine) 4 - 8 mg IVPUSH Q2H PRN PRN Reason: Pain (severe 7-10) Last Admin: 11/16/17 09:56 Dose: 4 mg Morphine Sulfate (Morphine) 15 - 30 mg PO Q4H PRN PRN Reason: Pain Last Admin: 11/16/17 09:45 Dose: 30 mg Ondansetron HCl (Zofran) 4 - 8 mg IVPUSH Q4H PRN PRN Reason: Nausea/Vomiting Last Admin: 11/12/17 16:10 Dose: 8 mg Pantoprazole Sodium (Protonix) 40 mg PO BEDTIME [facility] Last Admin: 11/15/17 22:35 Dose: 40 mg Scopolamine (Transderm-Scop) 1.5 mg TOP Q72H PRN PRN Reason: Nausea Trazodone HCl (Trazodone) 100 mg PO BEDTIME PRN PRN Reason: Insomnia Last Admin: 11/15/17 22:40 Dose: 100 mg Venlafaxine HCl (Effexor Xr) 300 mg PO DAILY [facility] Last Admin: 11/16/17 09:58 Dose: 75 mg Zolpidem Tartrate (Ambien) 5 mg PO BEDTIME PRN PRN Reason: Sleep Last Admin: 11/15/17 22:39 Dose: 5 mg Discontinued Medications Hydromorphone HCl (Dilaudid) 0.5 mg IVPUSH Q2H PRN PRN Reason: Pain (severe 7-10) Last Admin: 11/15/17 09:30 Dose: 0.5 mg Hydromorphone HCl (Dilaudid) 2 mg PO Q3H PRN PRN Reason: Pain Last Admin: 11/15/17 09:24 Dose: 2 mg Piperacillin/Tazobactam/ (Dextrose 4.5 gm/ Premix) 100 mls @ 200 mls/hr IV Q8H [facility] Last Admin: 11/12/17 17:10 Dose: Not Given Multivitamins/Minerals 10 ml/Chromium/Copper/Manganese/Seleni/Zn 1 ml/ Amino Ac/ Electrol/Dextrose/Calcium 2,011 mls @ 60 mls/hr IV .Q24H [facility] Vancomycin HCl 1.2 gm/ Sodium (Chloride) 250 mls @ 167 mls/hr IV Q24H [facility] Last Admin: 11/15/17 08:01 Dose: 167 mls/hr FAT EMUL/SOY/MCT/OLIV/FISH OIL (Smoflipid 20% Iv Fat Emulsion) 100 mls @ 6.2 mls/hr IV .Q16H8M [facility] Stop: 11/16/17 00:30 Potassium Chloride 40 meq/ (Premix) 100 mls @ 25 mls/hr IV ONETIME ONE Stop: 11/12/17 14:59 Last Admin: 11/12/17 12:52 Dose: 25 mls/hr Lactated Ringer's (Ringers, Lactated) 500 mls @ 250 mls/hr IV ASDIRECTED [facility] Stop: 11/12/17 15:16 Sodium Chloride (Normal Saline) 75 mls @ 3.5 mls/sec IV ASDIRECTED [facility] Stop: 11/12/17 16:00 Last Admin: 11/12/17 14:15 Dose: 3.5 mls/sec Potassium Chloride 20 meq/Lidocaine HCl 2 ml/ Sodium Chloride 112 mls @ 50 mls/ hr IV Q2H [facility] Stop: 11/12/17 21:29 Last Admin: 11/12/17 20:20 Dose: Not Given Potassium Chloride (Kcl 20 Meq In Water 100 Ml) Confirm Administered Dose 100 mls @ as directed .ROUTE .STK-MED ONE Stop: 11/12/17 19:49 Last Admin: 11/12/17 20:08 Dose: Not Given Potassium Chloride (Kcl 20 Meq In Water 100 Ml) Confirm Administered Dose 100 mls @ as directed .ROUTE .STK-MED ONE Stop: 11/12/17 19:50 Last Admin: 11/12/17 20:08 Dose: Not Given Potassium Chloride (Kcl 20 Meq In Water 100 Ml) 100 mls @ 50 mls/hr IV Q2H [facility] Stop: 11/13/17 00:59 Last Admin: 11/12/17 22:16 Dose: 50 mls/hr Iopamidol (Isovue-300 (61%)) 100 ml IV . DIRECTED PRN PRN Reason: RADIOLOGY EXAM Stop: 11/13/17 13:53 Last Admin: 11/12/17 14:15 Dose: 100 ml Ketorolac Tromethamine (Toradol) 30 mg IVPUSH ONETIME ONE Stop: 11/14/17 10:21 Last Admin: 11/14/17 10:41 Dose: 30 mg Ketorolac Tromethamine (Toradol) 15 mg IVPUSH Q6H PRN PRN Reason: Pain Stop: 11/19/17 10:08 Last Admin: 11/14/17 17:01 Dose: 15 mg Morphine Sulfate (Morphine) 1 - 2 mg IVPUSH Q2H PRN PRN Reason: Pain Last Admin: 11/12/17 13:21 Dose: 2 mg Morphine Sulfate (Morphine) 4 - 8 mg IVPUSH Q2H PRN PRN Reason: Pain Last Admin: 11/13/17 09:30 Dose: 8 mg Morphine Sulfate (Morphine) 15 - 30 mg PO Q4H PRN PRN Reason: Pain Last Admin: 11/14/17 12:20 Dose: 30 mg Sodium Chloride (Saline Flush) 10 ml FLUSH ONETIME ONE Stop: 11/12/17 13:53 Last Admin: 11/12/17 14:09 Dose: 10 ml Tramadol HCl (Ultram) 25 mg PO Q6H PRN PRN Reason: Pain - Exam Quality Assessment: No: Supplemental Oxygen General: Alert, Oriented, Cooperative, No Acute Distress Neck: Supple Lungs: Clear to Auscultation, Normal Respiratory Effort Cardiovascular: Regular Rate, Regular Rhythm GI/Abdominal Exam: Soft, No Distention, Other (wound investment manager over wound in mid abdomen. biliary drain in RUQ) Extremities: No Pedal Edema Psy/Mental Status: Alert, Normal Affect - Problem List Review Problem List Initiated/Reviewed/Updated: Yes - My Orders Last 24 Hours: My Active Orders 11/15/17 10:25 Morphine 15 - 30 mg PO Q4H PRN Morphine 4 - 8 mg IVPUSH Q2H PRN 11/16/17 08:55 Potassium Chloride [KCL 40 MEQ in Water 100 ML] 40 meq Premix Bag 1 bag IV ONETIME - Assessment Assessment:: Her WBC is down. She has no fever. Her bile drainage tube and wound investment manager are functioning. A new PICC could not be placed in her left arm, not sure she needs a new PICC. Open abdomen. Albumin is low at 1.6. T. bili still normal. - Plan Plan:: ASSESSMENT AND PLAN Acute right upper quadrant abdominal pain with nausea - CT did not show any acute pathology in the abdomen and especially in the right upper quadrant. Still some concern for cholangitis but clinically seems to be getting better with improving laboratory studies. Pain is a little better. Not having fevers. Heart rate stable to improved and white count is now in the normal range. 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 There does appear to be a new fistula or 2 forming in the upper right portion of the wound but it is very small at this time. She is on TPN. Surgical team is managing the wound care. This is complicated by severe protein calorie malnutrition. Hypokalemia - potassium trending down and she will receive additional supplementation today. -Potassium 40 mEq through the IV -daily labs -Continue TPN Kel Tabor M.D.
[2017-11-16] MEDS ORDERED: Potassium Chloride 40 MEQ in Premix Bag 1 BAG IV ONE (11:00)
--- NOTE | 2017-11-16 11:04 | PCM.PN ---
- General Info Date of Service: 11/16/17 Admission Dx/Problem (Free Text): Admission Diagnosis/Problem Admission Diagnosis/Problem Fistula of intestine Subjective Update: She denies complaints except for right flank pain which she has been having. Tolerating diet. Fistulae continue to leak fluid. - Review of Systems General: Reports: No Symptoms HEENT: Reports: No Symptoms Pulmonary: Reports: No Symptoms Cardiovascular: Reports: No Symptoms Gastrointestinal: Reports: Other (Open abdomen draining from entero-atmospheric fistulae. Pain in right flank is a little better. ) Genitourinary: Reports: No Symptoms Musculoskeletal: Reports: No Symptoms Skin: Reports: No Symptoms Neurological: Reports: No Symptoms Psychiatric: Reports: No Symptoms - Patient Data Vitals - Most Recent: Last Vital Signs Temp 97.6 F 11/16/17 09:24 Pulse 103 H 11/16/17 09:51 Resp 20 11/16/17 09:24 BP 109/57 L 11/16/17 09:51 Pulse Ox 95 11/16/17 09:24 Weight - Most Recent: 173 lb 3.2 oz I&O - Last 24 Hours: Intake & Output 11/15/17 11/16/17 11/16/17 22:59 06:59 14:59 Intake Total 1452 1284 Output Total 1700 700 Balance -248 1284 -700 Lab Results Last 24 Hours: Laboratory Results - last 24 hr 11/16/17 11/16/17 Range/Units 05:20 05:20 WBC 10.3 (4.5-11.0) K/uL RBC 3.33 (3.30-5.50) M/uL Hgb 8.9 L (12.0-15.0) g/dL Hct 28.5 L (36.0-48.0) % MCV 86 (80-98) fL MCH 27 (27-31) pg MCHC 31 L (32-36) % Plt Count 599 H (150-400) K/uL Sodium 141 (140-148) mmol/L Potassium 3.6 (3.6-5.2) mmol/L Chloride 106 (100-108) mmol/L Carbon Dioxide 27 (21-32) mmol/L Anion Gap 11.6 (5.0-14.0) mmol/L BUN 14 (7-18) mg/dL Creatinine 0.9 (0.6-1.0) mg/dL Est Cr Clr Drug Dosing 56.68 mL/min Estimated GFR (MDRD) > 60 (>60) Glucose 107 H (74-106) mg/dL Calcium 8.5 (8.5-10.1) mg/dL Total Bilirubin 0.1 L (0.2-1.0) mg/dL AST 26 (15-37) U/L ALT 30 (12-78) U/L Alkaline Phosphatase 314 H (46-116) U/L Total Protein 5.9 L (6.4-8.2) g/dL Albumin 1.5 L (3.4-5.0) g/dL Globulin 4.4 H (2.3-3.5) g/dL Albumin/Globulin Ratio 0.3 L (1.2-2.2) Med Orders - Current: Current Medications Acetaminophen (Tylenol) 650 mg RECTAL Q6H PRN PRN Reason: Fever Albuterol/Ipratropium (Duoneb 3.0-0.5 Mg/3 Ml) 3 ml NEB Q4H PRN PRN Reason: Wheezing Bacitracin (Bacitracin Oint 1 Gm) 1 dose TOP DAILY [facility] Last Admin: 11/15/17 09:53 Dose: 1 dose Bisacodyl (Dulcolax) 5 mg PO DAILY PRN PRN Reason: Constipation Cholecalciferol (Vitamin D3) 50,000 unit PO Mo@0900 [facility] Diazepam (Valium.) 5 mg PO QID PRN PRN Reason: Anxiety Last Admin: 11/15/17 09:58 Dose: 5 mg Docusate Sodium (Colace) 100 mg PO BID PRN PRN Reason: Constipation Fenofibrate (Fenofibrate) 134 mg PO DAILY [facility] Last Admin: 11/16/17 09:58 Dose: 67 mg Heparin Sodium (Porcine) (Heparin Lock Flush 100 Units/Ml) 500 units FLUSH ASDIRECTED PRN PRN Reason: maintanence Last Admin: 11/14/17 07:54 Dose: 500 units Sodium Chloride (Normal Saline) 1,000 mls @ 0 mls/hr IV TITRATE [facility] PRN Reason: Protocol Last Admin: 11/15/17 21:04 Dose: 62.5 mls/hr Multivitamins/Minerals 10 ml/Chromium/Copper/Manganese/Seleni/Zn 1 ml/ Amino Ac/ Electrol/Dextrose/Calcium 2,011 mls @ 60 mls/hr IV .Q24H [facility] Non-Formulary Medication (Nf Drug) 1,590 mls @ 66.2 mls/hr IV .Q24H [facility] Stop: 11/16/17 13:59 Last Admin: 11/15/17 14:19 Dose: 65.4 mls/hr FAT EMUL/SOY/MCT/OLIV/FISH OIL (Smoflipid 20% Iv Fat Emulsion) 100 mls @ 6.2 mls/hr IV .Q16H8M [facility] Meropenem 1 gm/ Sodium (Chloride) 50 mls @ 100 mls/hr IV Q8H [facility] Last Admin: 11/16/17 09:14 Dose: 100 mls/hr Potassium Chloride 40 meq/ (Premix) 100 mls @ 25 mls/hr IV ONETIME ONE Stop: 11/16/17 14:59 Metoprolol Tartrate (Lopressor) 25 mg PO BID [facility] Last Admin: 11/16/17 09:51 Dose: 25 mg Mirtazapine (Remeron) 15 mg PO BEDTIME [facility] Last Admin: 11/15/17 22:32 Dose: 15 mg Morphine Sulfate (Morphine) 4 - 8 mg IVPUSH Q2H PRN PRN Reason: Pain (severe 7-10) Last Admin: 11/16/17 09:56 Dose: 4 mg Morphine Sulfate (Morphine) 15 - 30 mg PO Q4H PRN PRN Reason: Pain Last Admin: 11/16/17 09:45 Dose: 30 mg Ondansetron HCl (Zofran) 4 - 8 mg IVPUSH Q4H PRN PRN Reason: Nausea/Vomiting Last Admin: 11/12/17 16:10 Dose: 8 mg Pantoprazole Sodium (Protonix) 40 mg PO BEDTIME [facility] Last Admin: 11/15/17 22:35 Dose: 40 mg Scopolamine (Transderm-Scop) 1.5 mg TOP Q72H PRN PRN Reason: Nausea Trazodone HCl (Trazodone) 100 mg PO BEDTIME PRN PRN Reason: Insomnia Last Admin: 11/15/17 22:40 Dose: 100 mg Venlafaxine HCl (Effexor Xr) 300 mg PO DAILY [facility] Last Admin: 11/16/17 09:58 Dose: 75 mg Zolpidem Tartrate (Ambien) 5 mg PO BEDTIME PRN PRN Reason: Sleep Last Admin: 11/15/17 22:39 Dose: 5 mg Discontinued Medications Hydromorphone HCl (Dilaudid) 0.5 mg IVPUSH Q2H PRN PRN Reason: Pain (severe 7-10) Last Admin: 11/15/17 09:30 Dose: 0.5 mg Hydromorphone HCl (Dilaudid) 2 mg PO Q3H PRN PRN Reason: Pain Last Admin: 11/15/17 09:24 Dose: 2 mg Piperacillin/Tazobactam/ (Dextrose 4.5 gm/ Premix) 100 mls @ 200 mls/hr IV Q8H [facility] Last Admin: 11/12/17 17:10 Dose: Not Given Multivitamins/Minerals 10 ml/Chromium/Copper/Manganese/Seleni/Zn 1 ml/ Amino Ac/ Electrol/Dextrose/Calcium 2,011 mls @ 60 mls/hr IV .Q24H [facility] Vancomycin HCl 1.2 gm/ Sodium (Chloride) 250 mls @ 167 mls/hr IV Q24H [facility] Last Admin: 11/15/17 08:01 Dose: 167 mls/hr FAT EMUL/SOY/MCT/OLIV/FISH OIL (Smoflipid 20% Iv Fat Emulsion) 100 mls @ 6.2 mls/hr IV .Q16H8M [facility] Stop: 11/16/17 00:30 Potassium Chloride 40 meq/ (Premix) 100 mls @ 25 mls/hr IV ONETIME ONE Stop: 11/12/17 14:59 Last Admin: 11/12/17 12:52 Dose: 25 mls/hr Lactated Ringer's (Ringers, Lactated) 500 mls @ 250 mls/hr IV ASDIRECTED [facility] Stop: 11/12/17 15:16 Sodium Chloride (Normal Saline) 75 mls @ 3.5 mls/sec IV ASDIRECTED [facility] Stop: 11/12/17 16:00 Last Admin: 11/12/17 14:15 Dose: 3.5 mls/sec Potassium Chloride 20 meq/Lidocaine HCl 2 ml/ Sodium Chloride 112 mls @ 50 mls/ hr IV Q2H [facility] Stop: 11/12/17 21:29 Last Admin: 11/12/17 20:20 Dose: Not Given Potassium Chloride (Kcl 20 Meq In Water 100 Ml) Confirm Administered Dose 100 mls @ as directed .ROUTE .STK-MED ONE Stop: 11/12/17 19:49 Last Admin: 11/12/17 20:08 Dose: Not Given Potassium Chloride (Kcl 20 Meq In Water 100 Ml) Confirm Administered Dose 100 mls @ as directed .ROUTE .STK-MED ONE Stop: 11/12/17 19:50 Last Admin: 11/12/17 20:08 Dose: Not Given Potassium Chloride (Kcl 20 Meq In Water 100 Ml) 100 mls @ 50 mls/hr IV Q2H [facility] Stop: 11/13/17 00:59 Last Admin: 11/12/17 22:16 Dose: 50 mls/hr Iopamidol (Isovue-300 (61%)) 100 ml IV . DIRECTED PRN PRN Reason: RADIOLOGY EXAM Stop: 11/13/17 13:53 Last Admin: 11/12/17 14:15 Dose: 100 ml Ketorolac Tromethamine (Toradol) 30 mg IVPUSH ONETIME ONE Stop: 11/14/17 10:21 Last Admin: 11/14/17 10:41 Dose: 30 mg Ketorolac Tromethamine (Toradol) 15 mg IVPUSH Q6H PRN PRN Reason: Pain Stop: 11/19/17 10:08 Last Admin: 11/14/17 17:01 Dose: 15 mg Morphine Sulfate (Morphine) 1 - 2 mg IVPUSH Q2H PRN PRN Reason: Pain Last Admin: 11/12/17 13:21 Dose: 2 mg Morphine Sulfate (Morphine) 4 - 8 mg IVPUSH Q2H PRN PRN Reason: Pain Last Admin: 11/13/17 09:30 Dose: 8 mg Morphine Sulfate (Morphine) 15 - 30 mg PO Q4H PRN PRN Reason: Pain Last Admin: 11/14/17 12:20 Dose: 30 mg Sodium Chloride (Saline Flush) 10 ml FLUSH ONETIME ONE Stop: 11/12/17 13:53 Last Admin: 11/12/17 14:09 Dose: 10 ml Tramadol HCl (Ultram) 25 mg PO Q6H PRN PRN Reason: Pain - Exam General: Alert, Oriented, Cooperative, No Acute Distress Lungs: Clear to Auscultation, Normal Respiratory Effort Cardiovascular: Regular Rate, Regular Rhythm GI/Abdominal Exam: Normal Bowel Sounds, Soft, Non-Tender, Other (Open abdomen with multiple leaking fistulae. ) (Female) Exam: Normal External Exam, Normal Speculum Exam, Normal Bimanual Exam Extremities: Normal Inspection, No Pedal Edema Skin: Warm, Dry. No: Intact (Open abdomen. ) Wound/Incisions: Drainage (From bowel fistulae. ). No: Healing Well Neurological: No New Focal Deficit, Normal Speech, Normal Tone Psy/Mental Status: Alert, Normal Affect, Normal Mood - Problem List & Annotations (1) Abdominal wall fistula SNOMED Code(s): 085114036 Code(s): K63.2 - FISTULA OF INTESTINE Status: Acute Current Visit: No - Problem List Review Problem List Initiated/Reviewed/Updated: Yes - Assessment Assessment:: Her WBC is down. She has no fever. Her bile drainage tube and wound mutual fund manager are functioning. A new PICC could not be placed in her left arm, not sure she needs a new PICC. Open abdomen. Albumin is low at 1.6. T. bili still normal. WBC is now normal. Her right flank pain is improving. - Plan Plan:: No change in plans. Continue TPN, antibiotics. No change. No change. Continue TPN and antibiotics. Still no change.
[2017-11-16] MEDS ORDERED: AA 5%/Calcium/D15W/Lytes 2,000 ML with MVI, Adult with Vitamin K 10 ML, Chromium/Copper... IV SCH ×3 (14:00)
[2017-11-16] MEDS: FAT EMUL/SOY/MCT/OLIV/FISH OIL 100 ML IV SCH (14:10)
[2017-11-16] MEDS: AA 5%/Calcium/D15W/Lytes 2,000 ML with MVI, Adult with Vitamin K 10 ML, Chromium/Copper... IV SCH ×3 (14:10)
[2017-11-16] MEDS: Bacitracin Oint 1 GM U/D Packet TOP SCH (17:55)
[2017-11-16] MEDS: Pantoprazole 40 MG Tab.CR PO SCH (21:42)
[2017-11-16] MEDS: Diazepam 5 MG Tab PO PRN (21:43)
[2017-11-16] MEDS: Mirtazapine 15 MG Tab PO SCH (21:43)
[2017-11-16] MEDS: Zolpidem 5 MG Tab PO PRN (21:43)
[2017-11-16] MEDS: traZODone 50 MG Tab PO PRN (21:43)
[2017-11-17] MEDS: Morphine 15 MG Tab PO PRN ×5 (03:27→22:10)
[2017-11-17] MEDS: Morphine 4 MG/ML Syringe IVPUSH PRN ×6 (03:28→21:14)
[2017-11-17] MEDS: FAT EMUL/SOY/MCT/OLIV/FISH OIL 100 ML IV SCH ×2 (05:54→22:10)
[2017-11-17] MEDS ORDERED: VITAMIN D3 50000 UNIT PO SCH (09:00)
[2017-11-17] MEDS ORDERED: Central Total Parenteral Nutrition Bag SCH (09:00)
[2017-11-17] MEDS: Fenofibrate,Micronized 67 MG Cap PO SCH (09:19)
[2017-11-17] MEDS: Venlafaxine 75 MG Cap.ER PO SCH (09:19)
[2017-11-17] MEDS: Metoprolol Tartrate 25 MG Tab PO SCH ×2 (09:19→22:15)
[2017-11-17] MEDS: Bacitracin Oint 1 GM U/D Packet TOP SCH (09:22)
[2017-11-17] MEDS: Diazepam 5 MG Tab PO PRN ×2 (09:35→20:58)
--- NOTE | 2017-11-17 14:01 | PCM.PN ---
- General Info Date of Service: 11/17/17 Admission Dx/Problem (Free Text): Admission Diagnosis/Problem Admission Diagnosis/Problem Fistula of intestine Subjective Update: She denies complaints except for right flank pain which she has been having. Tolerating diet. Fistulae continue to leak fluid. Functional Status: Reports: Pain Controlled, Tolerating Diet, Ambulating, Urinating - Review of Systems General: Reports: No Symptoms HEENT: Reports: No Symptoms Pulmonary: Reports: No Symptoms Cardiovascular: Reports: No Symptoms Gastrointestinal: Reports: No Symptoms, Abdominal Pain (Pain is improved. ) Genitourinary: Reports: No Symptoms Musculoskeletal: Reports: No Symptoms Skin: Reports: No Symptoms Neurological: Reports: No Symptoms Psychiatric: Reports: No Symptoms - Patient Data Vitals - Most Recent: Last Vital Signs Temp 98.2 F 11/17/17 09:10 Pulse 110 H 11/17/17 09:19 Resp 16 11/17/17 09:10 BP 113/60 11/17/17 09:19 Pulse Ox 97 11/17/17 09:10 Weight - Most Recent: 173 lb 3.2 oz I&O - Last 24 Hours: Intake & Output 11/16/17 11/17/17 11/17/17 22:59 06:59 14:59 Intake Total 930 1497 Output Total 2053 926 7597 Balance -970 997 -1500 Lab Results Last 24 Hours: Laboratory Results - last 24 hr 11/17/17 11/17/17 Range/Units 05:12 05:12 WBC 10.3 (4.5-11.0) K/uL RBC 3.24 L (3.30-5.50) M/uL Hgb 8.7 L (12.0-15.0) g/dL Hct 27.7 L (36.0-48.0) % MCV 86 (80-98) fL MCH 27 (27-31) pg MCHC 31 L (32-36) % Plt Count 576 H (150-400) K/uL Sodium 139 L (140-148) mmol/L Potassium 3.9 (3.6-5.2) mmol/L Chloride 106 (100-108) mmol/L Carbon Dioxide 24 (21-32) mmol/L Anion Gap 12.9 (5.0-14.0) mmol/L BUN 15 (7-18) mg/dL Creatinine 0.8 (0.6-1.0) mg/dL Est Cr Clr Drug Dosing 63.77 mL/min Estimated GFR (MDRD) > 60 (>60) Glucose 115 H (74-106) mg/dL Calcium 8.4 L (8.5-10.1) mg/dL Total Bilirubin 0.2 D (0.2-1.0) mg/dL AST 30 (15-37) U/L ALT 28 (12-78) U/L Alkaline Phosphatase 296 H (46-116) U/L Total Protein 5.7 L (6.4-8.2) g/dL Albumin 1.4 L (3.4-5.0) g/dL Globulin 4.3 H (2.3-3.5) g/dL Albumin/Globulin Ratio 0.3 L (1.2-2.2) Med Orders - Current: Current Medications Acetaminophen (Tylenol) 650 mg RECTAL Q6H PRN PRN Reason: Fever Albuterol/Ipratropium (Duoneb 3.0-0.5 Mg/3 Ml) 3 ml NEB Q4H PRN PRN Reason: Wheezing Bacitracin (Bacitracin Oint 1 Gm) 1 dose TOP DAILY [facility] Last Admin: 11/17/17 09:22 Dose: Not Given Bisacodyl (Dulcolax) 5 mg PO DAILY PRN PRN Reason: Constipation Cholecalciferol (Vitamin D3) 50,000 unit PO Mo@0900 [facility] Last Admin: 11/17/17 09:20 Dose: 50,000 unit Diazepam (Valium.) 5 mg PO QID PRN PRN Reason: Anxiety Last Admin: 11/17/17 09:35 Dose: 5 mg Docusate Sodium (Colace) 100 mg PO BID PRN PRN Reason: Constipation Fenofibrate (Fenofibrate) 134 mg PO DAILY [facility] Last Admin: 11/17/17 09:19 Dose: 134 mg Heparin Sodium (Porcine) (Heparin Lock Flush 100 Units/Ml) 500 units FLUSH ASDIRECTED PRN PRN Reason: maintanence Last Admin: 11/14/17 07:54 Dose: 500 units Sodium Chloride (Normal Saline) 1,000 mls @ 0 mls/hr IV TITRATE [facility] PRN Reason: Protocol Last Admin: 11/16/17 09:00 Dose: 29 mls/hr Multivitamins/Minerals 10 ml/Chromium/Copper/Manganese/Seleni/Zn 1 ml/ Amino Ac/ Electrol/Dextrose/Calcium 2,011 mls @ 60 mls/hr IV .Q24H [facility] Last Admin: 11/16/17 14:10 Dose: 60 mls/hr FAT EMUL/SOY/MCT/OLIV/FISH OIL (Smoflipid 20% Iv Fat Emulsion) 100 mls @ 6.2 mls/hr IV .Q16H8M [facility] Last Admin: 11/17/17 05:54 Dose: 6.2 mls/hr Meropenem 1 gm/ Sodium (Chloride) 50 mls @ 100 mls/hr IV Q8H [facility] Last Admin: 11/17/17 09:15 Dose: 100 mls/hr Metoprolol Tartrate (Lopressor) 25 mg PO BID [facility] Last Admin: 11/17/17 09:19 Dose: 25 mg Mirtazapine (Remeron) 15 mg PO BEDTIME [facility] Last Admin: 11/16/17 21:43 Dose: 15 mg Morphine Sulfate (Morphine) 4 - 8 mg IVPUSH Q2H PRN PRN Reason: Pain (severe 7-10) Last Admin: 11/17/17 12:10 Dose: 4 mg Morphine Sulfate (Morphine) 15 - 30 mg PO Q4H PRN PRN Reason: Pain Last Admin: 11/17/17 13:27 Dose: 30 mg Non-Formulary Medication (Total Parenteral Nutrition, Central) 0 ml .XX DAILY [facility] Stop: 11/17/17 16:00 Last Admin: 11/17/17 13:29 Dose: Not Given Ondansetron HCl (Zofran) 4 - 8 mg IVPUSH Q4H PRN PRN Reason: Nausea/Vomiting Last Admin: 11/12/17 16:10 Dose: 8 mg Pantoprazole Sodium (Protonix) 40 mg PO BEDTIME [facility] Last Admin: 11/16/17 21:42 Dose: 40 mg Scopolamine (Transderm-Scop) 1.5 mg TOP Q72H PRN PRN Reason: Nausea Trazodone HCl (Trazodone) 100 mg PO BEDTIME PRN PRN Reason: Insomnia Last Admin: 11/16/17 21:43 Dose: 100 mg Venlafaxine HCl (Effexor Xr) 300 mg PO DAILY [facility] Last Admin: 11/17/17 09:19 Dose: 300 mg Zolpidem Tartrate (Ambien) 5 mg PO BEDTIME PRN PRN Reason: Sleep Last Admin: 11/16/17 21:43 Dose: 5 mg Discontinued Medications Hydromorphone HCl (Dilaudid) 0.5 mg IVPUSH Q2H PRN PRN Reason: Pain (severe 7-10) Last Admin: 11/15/17 09:30 Dose: 0.5 mg Hydromorphone HCl (Dilaudid) 2 mg PO Q3H PRN PRN Reason: Pain Last Admin: 11/15/17 09:24 Dose: 2 mg Piperacillin/Tazobactam/ (Dextrose 4.5 gm/ Premix) 100 mls @ 200 mls/hr IV Q8H [facility] Last Admin: 11/12/17 17:10 Dose: Not Given Multivitamins/Minerals 10 ml/Chromium/Copper/Manganese/Seleni/Zn 1 ml/ Amino Ac/ Electrol/Dextrose/Calcium 2,011 mls @ 60 mls/hr IV .Q24H [facility] Vancomycin HCl 1.2 gm/ Sodium (Chloride) 250 mls @ 167 mls/hr IV Q24H [facility] Last Admin: 11/15/17 08:01 Dose: 167 mls/hr FAT EMUL/SOY/MCT/OLIV/FISH OIL (Smoflipid 20% Iv Fat Emulsion) 100 mls @ 6.2 mls/hr IV .Q16H8M [facility] Stop: 11/16/17 00:30 Potassium Chloride 40 meq/ (Premix) 100 mls @ 25 mls/hr IV ONETIME ONE Stop: 11/12/17 14:59 Last Admin: 11/12/17 12:52 Dose: 25 mls/hr Non-Formulary Medication (Nf Drug) 1,590 mls @ 66.2 mls/hr IV .Q24H [facility] Stop: 11/16/17 13:59 Last Admin: 11/15/17 14:19 Dose: 65.4 mls/hr Lactated Ringer's (Ringers, Lactated) 500 mls @ 250 mls/hr IV ASDIRECTED [facility] Stop: 11/12/17 15:16 Sodium Chloride (Normal Saline) 75 mls @ 3.5 mls/sec IV ASDIRECTED [facility] Stop: 11/12/17 16:00 Last Admin: 11/12/17 14:15 Dose: 3.5 mls/sec Potassium Chloride 20 meq/Lidocaine HCl 2 ml/ Sodium Chloride 112 mls @ 50 mls/ hr IV Q2H [facility] Stop: 11/12/17 21:29 Last Admin: 11/12/17 20:20 Dose: Not Given Potassium Chloride (Kcl 20 Meq In Water 100 Ml) Confirm Administered Dose 100 mls @ as directed .ROUTE .STK-MED ONE Stop: 11/12/17 19:49 Last Admin: 11/12/17 20:08 Dose: Not Given Potassium Chloride (Kcl 20 Meq In Water 100 Ml) Confirm Administered Dose 100 mls @ as directed .ROUTE .STK-MED ONE Stop: 11/12/17 19:50 Last Admin: 11/12/17 20:08 Dose: Not Given Potassium Chloride (Kcl 20 Meq In Water 100 Ml) 100 mls @ 50 mls/hr IV Q2H [facility] Stop: 11/13/17 00:59 Last Admin: 11/12/17 22:16 Dose: 50 mls/hr Potassium Chloride 40 meq/ (Premix) 100 mls @ 25 mls/hr IV ONETIME ONE Stop: 11/16/17 14:59 Last Admin: 11/16/17 12:37 Dose: 25 mls/hr Iopamidol (Isovue-300 (61%)) 100 ml IV . DIRECTED PRN PRN Reason: RADIOLOGY EXAM Stop: 11/13/17 13:53 Last Admin: 11/12/17 14:15 Dose: 100 ml Ketorolac Tromethamine (Toradol) 30 mg IVPUSH ONETIME ONE Stop: 11/14/17 10:21 Last Admin: 11/14/17 10:41 Dose: 30 mg Ketorolac Tromethamine (Toradol) 15 mg IVPUSH Q6H PRN PRN Reason: Pain Stop: 11/19/17 10:08 Last Admin: 11/14/17 17:01 Dose: 15 mg Morphine Sulfate (Morphine) 1 - 2 mg IVPUSH Q2H PRN PRN Reason: Pain Last Admin: 11/12/17 13:21 Dose: 2 mg Morphine Sulfate (Morphine) 4 - 8 mg IVPUSH Q2H PRN PRN Reason: Pain Last Admin: 11/13/17 09:30 Dose: 8 mg Morphine Sulfate (Morphine) 15 - 30 mg PO Q4H PRN PRN Reason: Pain Last Admin: 11/14/17 12:20 Dose: 30 mg Sodium Chloride (Saline Flush) 10 ml FLUSH ONETIME ONE Stop: 11/12/17 13:53 Last Admin: 11/12/17 14:09 Dose: 10 ml Tramadol HCl (Ultram) 25 mg PO Q6H PRN PRN Reason: Pain - Exam General: Alert, Oriented, Cooperative, No Acute Distress (Would like to go home. ) Lungs: Clear to Auscultation, Normal Respiratory Effort Cardiovascular: Regular Rate (HR about 110), Regular Rhythm GI/Abdominal Exam: Normal Bowel Sounds, Non-Tender, Other (Open abdomen with multiple entero-atmospheric fistula. ) Back Exam: Normal Inspection, Full Range of Motion Extremities: Normal Inspection Skin: Warm, Dry. No: Intact (Open abdomen) Neurological: No New Focal Deficit Psy/Mental Status: Alert, Normal Affect, Normal Mood - Problem List & Annotations (1) Abdominal wall fistula SNOMED Code(s): 424272451 Code(s): K63.2 - FISTULA OF INTESTINE Status: Acute Current Visit: No - Problem List Review Problem List Initiated/Reviewed/Updated: Yes - Assessment Assessment:: Her WBC is down. She has no fever. Her bile drainage tube and wound resource development manager are functioning. A new PICC could not be placed in her left arm, not sure she needs a new PICC. Open abdomen. Albumin is low at 1.6. T. bili still normal. Albumin continues to fall. - Plan Plan:: ASSESSMENT AND PLAN Acute right upper quadrant abdominal pain with nausea - CT did not show any acute pathology in the abdomen and especially in the right upper quadrant. Still some concern for cholangitis but clinically seems to be getting better with improving laboratory studies. Pain is a little better. Not having fevers. Heart rate stable to improved and white count is now in the normal range. 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 There does appear to be a new fistula or 2 forming in the upper right portion of the wound but it is very small at this time. She is on TPN. Surgical team is managing the wound care. This is complicated by severe protein calorie malnutrition. Hypokalemia - potassium trending down and she will receive additional supplementation today. -Potassium 40 mEq through the IV -daily labs -Continue TPN Kel Tabor M.D. Continue TPN.
--- NOTE | 2017-11-17 14:58 | PCM.PN ---
- General Info Date of Service: 11/17/17 Subjective Update: Ms. Vick has stabilized over the past few days, white blood cell count has normalized and she has remained afebrile. This morning she reports that her abdominal pain has essentially resolved. There is ongoing drainage from the fistulas, not changed significantly over the past few days. - Patient Data Vitals - Most Recent: Last Vital Signs Temp 98.2 F 11/17/17 09:10 Pulse 110 H 11/17/17 09:19 Resp 16 11/17/17 09:10 BP 113/60 11/17/17 09:19 Pulse Ox 97 11/17/17 09:10 Weight - Most Recent: 173 lb 3.2 oz I&O - Last 24 Hours: Intake & Output 11/16/17 11/17/17 11/17/17 22:59 06:59 14:59 Intake Total 930 1497 Output Total 4265 497 9455 Balance -970 997 -1500 Lab Results Last 24 Hours: Laboratory Results - last 24 hr 11/17/17 11/17/17 Range/Units 05:12 05:12 WBC 10.3 (4.5-11.0) K/uL RBC 3.24 L (3.30-5.50) M/uL Hgb 8.7 L (12.0-15.0) g/dL Hct 27.7 L (36.0-48.0) % MCV 86 (80-98) fL MCH 27 (27-31) pg MCHC 31 L (32-36) % Plt Count 576 H (150-400) K/uL Sodium 139 L (140-148) mmol/L Potassium 3.9 (3.6-5.2) mmol/L Chloride 106 (100-108) mmol/L Carbon Dioxide 24 (21-32) mmol/L Anion Gap 12.9 (5.0-14.0) mmol/L BUN 15 (7-18) mg/dL Creatinine 0.8 (0.6-1.0) mg/dL Est Cr Clr Drug Dosing 63.77 mL/min Estimated GFR (MDRD) > 60 (>60) Glucose 115 H (74-106) mg/dL Calcium 8.4 L (8.5-10.1) mg/dL Total Bilirubin 0.2 D (0.2-1.0) mg/dL AST 30 (15-37) U/L ALT 28 (12-78) U/L Alkaline Phosphatase 296 H (46-116) U/L Total Protein 5.7 L (6.4-8.2) g/dL Albumin 1.4 L (3.4-5.0) g/dL Globulin 4.3 H (2.3-3.5) g/dL Albumin/Globulin Ratio 0.3 L (1.2-2.2) Med Orders - Current: Current Medications Acetaminophen (Tylenol) 650 mg RECTAL Q6H PRN PRN Reason: Fever Albuterol/Ipratropium (Duoneb 3.0-0.5 Mg/3 Ml) 3 ml NEB Q4H PRN PRN Reason: Wheezing Bacitracin (Bacitracin Oint 1 Gm) 1 dose TOP DAILY [facility] Last Admin: 11/17/17 09:22 Dose: Not Given Bisacodyl (Dulcolax) 5 mg PO DAILY PRN PRN Reason: Constipation Cholecalciferol (Vitamin D3) 50,000 unit PO Mo@0900 [facility] Last Admin: 11/17/17 09:20 Dose: 50,000 unit Diazepam (Valium.) 5 mg PO QID PRN PRN Reason: Anxiety Last Admin: 11/17/17 09:35 Dose: 5 mg Docusate Sodium (Colace) 100 mg PO BID PRN PRN Reason: Constipation Fenofibrate (Fenofibrate) 134 mg PO DAILY [facility] Last Admin: 11/17/17 09:19 Dose: 134 mg Heparin Sodium (Porcine) (Heparin Lock Flush 100 Units/Ml) 500 units FLUSH ASDIRECTED PRN PRN Reason: maintanence Last Admin: 11/14/17 07:54 Dose: 500 units Sodium Chloride (Normal Saline) 1,000 mls @ 0 mls/hr IV TITRATE [facility] PRN Reason: Protocol Last Admin: 11/16/17 09:00 Dose: 29 mls/hr Multivitamins/Minerals 10 ml/Chromium/Copper/Manganese/Seleni/Zn 1 ml/ Amino Ac/ Electrol/Dextrose/Calcium 2,011 mls @ 60 mls/hr IV .Q24H [facility] Last Admin: 11/16/17 14:10 Dose: 60 mls/hr FAT EMUL/SOY/MCT/OLIV/FISH OIL (Smoflipid 20% Iv Fat Emulsion) 100 mls @ 6.2 mls/hr IV .Q16H8M [facility] Last Admin: 11/17/17 05:54 Dose: 6.2 mls/hr Meropenem 1 gm/ Sodium (Chloride) 50 mls @ 100 mls/hr IV Q8H [facility] Last Admin: 11/17/17 09:15 Dose: 100 mls/hr Metoprolol Tartrate (Lopressor) 25 mg PO BID [facility] Last Admin: 11/17/17 09:19 Dose: 25 mg Mirtazapine (Remeron) 15 mg PO BEDTIME [facility] Last Admin: 11/16/17 21:43 Dose: 15 mg Morphine Sulfate (Morphine) 4 - 8 mg IVPUSH Q2H PRN PRN Reason: Pain (severe 7-10) Last Admin: 11/17/17 12:10 Dose: 4 mg Morphine Sulfate (Morphine) 15 - 30 mg PO Q4H PRN PRN Reason: Pain Last Admin: 11/17/17 13:27 Dose: 30 mg Non-Formulary Medication (Total Parenteral Nutrition, Central) 0 ml .XX DAILY [facility] Stop: 11/17/17 16:00 Last Admin: 11/17/17 13:29 Dose: Not Given Ondansetron HCl (Zofran) 4 - 8 mg IVPUSH Q4H PRN PRN Reason: Nausea/Vomiting Last Admin: 11/12/17 16:10 Dose: 8 mg Pantoprazole Sodium (Protonix) 40 mg PO BEDTIME [facility] Last Admin: 11/16/17 21:42 Dose: 40 mg Scopolamine (Transderm-Scop) 1.5 mg TOP Q72H PRN PRN Reason: Nausea Trazodone HCl (Trazodone) 100 mg PO BEDTIME PRN PRN Reason: Insomnia Last Admin: 11/16/17 21:43 Dose: 100 mg Venlafaxine HCl (Effexor Xr) 300 mg PO DAILY [facility] Last Admin: 11/17/17 09:19 Dose: 300 mg Zolpidem Tartrate (Ambien) 5 mg PO BEDTIME PRN PRN Reason: Sleep Last Admin: 11/16/17 21:43 Dose: 5 mg Discontinued Medications Hydromorphone HCl (Dilaudid) 0.5 mg IVPUSH Q2H PRN PRN Reason: Pain (severe 7-10) Last Admin: 11/15/17 09:30 Dose: 0.5 mg Hydromorphone HCl (Dilaudid) 2 mg PO Q3H PRN PRN Reason: Pain Last Admin: 11/15/17 09:24 Dose: 2 mg Piperacillin/Tazobactam/ (Dextrose 4.5 gm/ Premix) 100 mls @ 200 mls/hr IV Q8H [facility] Last Admin: 11/12/17 17:10 Dose: Not Given Multivitamins/Minerals 10 ml/Chromium/Copper/Manganese/Seleni/Zn 1 ml/ Amino Ac/ Electrol/Dextrose/Calcium 2,011 mls @ 60 mls/hr IV .Q24H [facility] Vancomycin HCl 1.2 gm/ Sodium (Chloride) 250 mls @ 167 mls/hr IV Q24H [facility] Last Admin: 11/15/17 08:01 Dose: 167 mls/hr FAT EMUL/SOY/MCT/OLIV/FISH OIL (Smoflipid 20% Iv Fat Emulsion) 100 mls @ 6.2 mls/hr IV .Q16H8M [facility] Stop: 11/16/17 00:30 Potassium Chloride 40 meq/ (Premix) 100 mls @ 25 mls/hr IV ONETIME ONE Stop: 11/12/17 14:59 Last Admin: 11/12/17 12:52 Dose: 25 mls/hr Non-Formulary Medication (Nf Drug) 1,590 mls @ 66.2 mls/hr IV .Q24H [facility] Stop: 11/16/17 13:59 Last Admin: 11/15/17 14:19 Dose: 65.4 mls/hr Lactated Ringer's (Ringers, Lactated) 500 mls @ 250 mls/hr IV ASDIRECTED [facility] Stop: 11/12/17 15:16 Sodium Chloride (Normal Saline) 75 mls @ 3.5 mls/sec IV ASDIRECTED [facility] Stop: 11/12/17 16:00 Last Admin: 11/12/17 14:15 Dose: 3.5 mls/sec Potassium Chloride 20 meq/Lidocaine HCl 2 ml/ Sodium Chloride 112 mls @ 50 mls/ hr IV Q2H [facility] Stop: 11/12/17 21:29 Last Admin: 11/12/17 20:20 Dose: Not Given Potassium Chloride (Kcl 20 Meq In Water 100 Ml) Confirm Administered Dose 100 mls @ as directed .ROUTE .STK-MED ONE Stop: 11/12/17 19:49 Last Admin: 11/12/17 20:08 Dose: Not Given Potassium Chloride (Kcl 20 Meq In Water 100 Ml) Confirm Administered Dose 100 mls @ as directed .ROUTE .STK-MED ONE Stop: 11/12/17 19:50 Last Admin: 11/12/17 20:08 Dose: Not Given Potassium Chloride (Kcl 20 Meq In Water 100 Ml) 100 mls @ 50 mls/hr IV Q2H [facility] Stop: 11/13/17 00:59 Last Admin: 11/12/17 22:16 Dose: 50 mls/hr Potassium Chloride 40 meq/ (Premix) 100 mls @ 25 mls/hr IV ONETIME ONE Stop: 11/16/17 14:59 Last Admin: 11/16/17 12:37 Dose: 25 mls/hr Iopamidol (Isovue-300 (61%)) 100 ml IV . DIRECTED PRN PRN Reason: RADIOLOGY EXAM Stop: 11/13/17 13:53 Last Admin: 11/12/17 14:15 Dose: 100 ml Ketorolac Tromethamine (Toradol) 30 mg IVPUSH ONETIME ONE Stop: 11/14/17 10:21 Last Admin: 11/14/17 10:41 Dose: 30 mg Ketorolac Tromethamine (Toradol) 15 mg IVPUSH Q6H PRN PRN Reason: Pain Stop: 11/19/17 10:08 Last Admin: 11/14/17 17:01 Dose: 15 mg Morphine Sulfate (Morphine) 1 - 2 mg IVPUSH Q2H PRN PRN Reason: Pain Last Admin: 11/12/17 13:21 Dose: 2 mg Morphine Sulfate (Morphine) 4 - 8 mg IVPUSH Q2H PRN PRN Reason: Pain Last Admin: 11/13/17 09:30 Dose: 8 mg Morphine Sulfate (Morphine) 15 - 30 mg PO Q4H PRN PRN Reason: Pain Last Admin: 11/14/17 12:20 Dose: 30 mg Sodium Chloride (Saline Flush) 10 ml FLUSH ONETIME ONE Stop: 11/12/17 13:53 Last Admin: 11/12/17 14:09 Dose: 10 ml Tramadol HCl (Ultram) 25 mg PO Q6H PRN PRN Reason: Pain - Exam Quality Assessment: DVT Prophylaxis General: Alert, Oriented, Cooperative, Mild Distress Lungs: Clear to Auscultation, Normal Respiratory Effort Cardiovascular: Regular Rate, Regular Rhythm, No Murmurs GI/Abdominal Exam: Soft, Non-Tender, No Organomegaly, No Distention, Other ( Compliance present over the abdomen to collect fistula drainage) Extremities: Non-Tender, No Pedal Edema Skin: Warm, Dry - Problem List Review Problem List Initiated/Reviewed/Updated: Yes - Plan Plan:: ASSESSMENT AND PLAN Acute right upper quadrant abdominal pain with nausea - CT did not show any acute pathology in the abdomen and especially in the right upper quadrant. Still some concern for cholangitis but clinically seems to be getting better with improving laboratory studies. 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 There does appear to be a new fistula or 2 forming in the upper right portion of the wound but it is very small at this time. She is on TPN. Surgical team is managing the wound care. This is complicated by severe protein calorie malnutrition. Hypokalemia - potassium within normal range this morning -daily labs -Continue TPN
[2017-11-17] MEDS: AA 5%/Calcium/D15W/Lytes 2,000 ML with MVI, Adult with Vitamin K 10 ML, Chromium/Copper... IV SCH ×3 (15:17)
[2017-11-17] MEDS: Sodium Chloride 0.9% 1,000 ML IV SCH ×2 (16:04→21:07)
[2017-11-17] MEDS: Zolpidem 5 MG Tab PO PRN (20:58)
[2017-11-17] MEDS: Mirtazapine 15 MG Tab PO SCH (20:58)
[2017-11-17] MEDS: Pantoprazole 40 MG Tab.CR PO SCH (20:58)
[2017-11-17] MEDS: traZODone 50 MG Tab PO PRN (20:58)
[2017-11-18] MEDS: Morphine 4 MG/ML Syringe IVPUSH PRN ×5 (06:07→18:37)
[2017-11-18] MEDS: Morphine 15 MG Tab PO PRN ×3 (09:38→21:06)
[2017-11-18] MEDS: Metoprolol Tartrate 25 MG Tab PO SCH ×2 (10:00→21:04)
[2017-11-18] MEDS: Diazepam 5 MG Tab PO PRN ×3 (10:00→21:07)
[2017-11-18] MEDS: Bacitracin Oint 1 GM U/D Packet TOP SCH (10:00)
[2017-11-18] MEDS: Venlafaxine 75 MG Cap.ER PO SCH (10:01)
[2017-11-18] MEDS: Fenofibrate,Micronized 67 MG Cap PO SCH (10:02)
[2017-11-18] MEDS: FAT EMUL/SOY/MCT/OLIV/FISH OIL 100 ML IV SCH (14:58)
[2017-11-18] MEDS: AA 5%/Calcium/D15W/Lytes 2,000 ML with MVI, Adult with Vitamin K 10 ML, Chromium/Copper... IV SCH ×3 (14:59)
--- NOTE | 2017-11-18 16:49 | PCM.PN ---
- General Info Date of Service: 11/18/17 Subjective Update: Ms. Vick has been stable since yesterday, continues to experience some right upper quadrant abdominal pain related to the drain that is in place in that area. She does have some ongoing frustration related to her current situation and hopes that she can be discharged to home in the next few days. Continues to experience intermittent sinus tachycardia, other vital signs have been stable and she has remained afebrile. Functional Status: Reports: Tolerating Diet, Ambulating - Review of Systems General: Reports: Weakness. Denies: Fever, Chills Pulmonary: Reports: No Symptoms Cardiovascular: Reports: No Symptoms Gastrointestinal: Reports: Abdominal Pain. Denies: Diarrhea, Difficulty Swallowing, Nausea, Vomiting - Patient Data Vitals - Most Recent: Last Vital Signs Temp 99.9 F 11/18/17 16:00 Pulse 108 H 11/18/17 16:00 Resp 18 11/18/17 16:00 BP 110/55 L 11/18/17 16:00 Pulse Ox 96 11/18/17 16:00 Weight - Most Recent: 173 lb I&O - Last 24 Hours: Intake & Output 11/18/17 11/18/17 11/18/17 06:59 14:59 22:59 Intake Total 1443 530 Output Total 350 600 200 Balance 1093 -70 -200 Lab Results Last 24 Hours: Laboratory Results - last 24 hr 11/18/17 11/18/17 Range/Units 04:00 04:00 WBC 9.8 (4.5-11.0) K/uL RBC 3.20 L (3.30-5.50) M/uL Hgb 8.3 L (12.0-15.0) g/dL Hct 27.4 L (36.0-48.0) % MCV 86 (80-98) fL MCH 26 L (27-31) pg MCHC 30 L (32-36) % Plt Count 607 H (150-400) K/uL Sodium 140 (140-148) mmol/L Potassium 3.6 (3.6-5.2) mmol/L Chloride 105 (100-108) mmol/L Carbon Dioxide 26 (21-32) mmol/L Anion Gap 9.4 (5.0-14.0) mmol/L BUN 14 (7-18) mg/dL Creatinine 0.8 (0.6-1.0) mg/dL Est Cr Clr Drug Dosing 63.77 mL/min Estimated GFR (MDRD) > 60 (>60) Glucose 110 H (74-106) mg/dL Calcium 8.5 (8.5-10.1) mg/dL Total Bilirubin 0.1 L (0.2-1.0) mg/dL AST 25 (15-37) U/L ALT 25 (12-78) U/L Alkaline Phosphatase 273 H (46-116) U/L Total Protein 5.7 L (6.4-8.2) g/dL Albumin 1.4 L (3.4-5.0) g/dL Globulin 4.3 H (2.3-3.5) g/dL Albumin/Globulin Ratio 0.3 L (1.2-2.2) Triglycerides 189 H (15-150) mg/dL Med Orders - Current: Current Medications Acetaminophen (Tylenol) 650 mg RECTAL Q6H PRN PRN Reason: Fever Albuterol/Ipratropium (Duoneb 3.0-0.5 Mg/3 Ml) 3 ml NEB Q4H PRN PRN Reason: Wheezing Bacitracin (Bacitracin Oint 1 Gm) 1 dose TOP DAILY [facility] Last Admin: 11/18/17 10:00 Dose: 1 dose Bisacodyl (Dulcolax) 5 mg PO DAILY PRN PRN Reason: Constipation Cholecalciferol (Vitamin D3) 50,000 unit PO Mo@0900 [facility] Last Admin: 11/17/17 09:20 Dose: 50,000 unit Diazepam (Valium.) 5 mg PO QID PRN PRN Reason: Anxiety Last Admin: 11/18/17 15:29 Dose: 5 mg Docusate Sodium (Colace) 100 mg PO BID PRN PRN Reason: Constipation Fenofibrate (Fenofibrate) 134 mg PO DAILY [facility] Last Admin: 11/18/17 10:02 Dose: 134 mg Heparin Sodium (Porcine) (Heparin Lock Flush 100 Units/Ml) 500 units FLUSH ASDIRECTED PRN PRN Reason: maintanence Last Admin: 11/14/17 07:54 Dose: 500 units Sodium Chloride (Normal Saline) 1,000 mls @ 0 mls/hr IV TITRATE [facility] PRN Reason: Protocol Last Admin: 11/17/17 21:07 Dose: 56.7 mls/hr Multivitamins/Minerals 10 ml/Chromium/Copper/Manganese/Seleni/Zn 1 ml/ Amino Ac/ Electrol/Dextrose/Calcium 2,011 mls @ 60 mls/hr IV .Q24H [facility] Last Admin: 11/18/17 14:59 Dose: 60 mls/hr FAT EMUL/SOY/MCT/OLIV/FISH OIL (Smoflipid 20% Iv Fat Emulsion) 100 mls @ 6.2 mls/hr IV .Q16H8M [facility] Last Admin: 11/18/17 14:58 Dose: 6.2 mls/hr Meropenem 1 gm/ Sodium (Chloride) 50 mls @ 100 mls/hr IV Q8H [facility] Last Admin: 11/18/17 09:30 Dose: 100 mls/hr Metoprolol Tartrate (Lopressor) 25 mg PO BID [facility] Last Admin: 11/18/17 10:00 Dose: 25 mg Mirtazapine (Remeron) 15 mg PO BEDTIME [facility] Last Admin: 11/17/17 20:58 Dose: 15 mg Morphine Sulfate (Morphine) 4 - 8 mg IVPUSH Q2H PRN PRN Reason: Pain (severe 7-10) Last Admin: 11/18/17 15:28 Dose: 4 mg Morphine Sulfate (Morphine) 15 - 30 mg PO Q4H PRN PRN Reason: Pain Last Admin: 11/18/17 14:58 Dose: 30 mg Ondansetron HCl (Zofran) 4 - 8 mg IVPUSH Q4H PRN PRN Reason: Nausea/Vomiting Last Admin: 11/12/17 16:10 Dose: 8 mg Pantoprazole Sodium (Protonix) 40 mg PO BEDTIME [facility] Last Admin: 11/17/17 20:58 Dose: 40 mg Scopolamine (Transderm-Scop) 1.5 mg TOP Q72H PRN PRN Reason: Nausea Trazodone HCl (Trazodone) 100 mg PO BEDTIME PRN PRN Reason: Insomnia Last Admin: 11/17/17 20:58 Dose: 100 mg Venlafaxine HCl (Effexor Xr) 300 mg PO DAILY [facility] Last Admin: 11/18/17 10:01 Dose: 300 mg Zolpidem Tartrate (Ambien) 5 mg PO BEDTIME PRN PRN Reason: Sleep Last Admin: 11/17/17 20:58 Dose: 5 mg Discontinued Medications Hydromorphone HCl (Dilaudid) 0.5 mg IVPUSH Q2H PRN PRN Reason: Pain (severe 7-10) Last Admin: 11/15/17 09:30 Dose: 0.5 mg Hydromorphone HCl (Dilaudid) 2 mg PO Q3H PRN PRN Reason: Pain Last Admin: 11/15/17 09:24 Dose: 2 mg Piperacillin/Tazobactam/ (Dextrose 4.5 gm/ Premix) 100 mls @ 200 mls/hr IV Q8H [facility] Last Admin: 11/12/17 17:10 Dose: Not Given Multivitamins/Minerals 10 ml/Chromium/Copper/Manganese/Seleni/Zn 1 ml/ Amino Ac/ Electrol/Dextrose/Calcium 2,011 mls @ 60 mls/hr IV .Q24H [facility] Vancomycin HCl 1.2 gm/ Sodium (Chloride) 250 mls @ 167 mls/hr IV Q24H [facility] Last Admin: 11/15/17 08:01 Dose: 167 mls/hr FAT EMUL/SOY/MCT/OLIV/FISH OIL (Smoflipid 20% Iv Fat Emulsion) 100 mls @ 6.2 mls/hr IV .Q16H8M [facility] Stop: 11/16/17 00:30 Potassium Chloride 40 meq/ (Premix) 100 mls @ 25 mls/hr IV ONETIME ONE Stop: 11/12/17 14:59 Last Admin: 11/12/17 12:52 Dose: 25 mls/hr Non-Formulary Medication (Nf Drug) 1,590 mls @ 66.2 mls/hr IV .Q24H [facility] Stop: 11/16/17 13:59 Last Admin: 11/15/17 14:19 Dose: 65.4 mls/hr Lactated Ringer's (Ringers, Lactated) 500 mls @ 250 mls/hr IV ASDIRECTED [facility] Stop: 11/12/17 15:16 Sodium Chloride (Normal Saline) 75 mls @ 3.5 mls/sec IV ASDIRECTED [facility] Stop: 11/12/17 16:00 Last Admin: 11/12/17 14:15 Dose: 3.5 mls/sec Potassium Chloride 20 meq/Lidocaine HCl 2 ml/ Sodium Chloride 112 mls @ 50 mls/ hr IV Q2H [facility] Stop: 11/12/17 21:29 Last Admin: 11/12/17 20:20 Dose: Not Given Potassium Chloride (Kcl 20 Meq In Water 100 Ml) Confirm Administered Dose 100 mls @ as directed .ROUTE .STK-MED ONE Stop: 11/12/17 19:49 Last Admin: 11/12/17 20:08 Dose: Not Given Potassium Chloride (Kcl 20 Meq In Water 100 Ml) Confirm Administered Dose 100 mls @ as directed .ROUTE .STK-MED ONE Stop: 11/12/17 19:50 Last Admin: 11/12/17 20:08 Dose: Not Given Potassium Chloride (Kcl 20 Meq In Water 100 Ml) 100 mls @ 50 mls/hr IV Q2H [facility] Stop: 11/13/17 00:59 Last Admin: 11/12/17 22:16 Dose: 50 mls/hr Potassium Chloride 40 meq/ (Premix) 100 mls @ 25 mls/hr IV ONETIME ONE Stop: 11/16/17 14:59 Last Admin: 11/16/17 12:37 Dose: 25 mls/hr Iopamidol (Isovue-300 (61%)) 100 ml IV . DIRECTED PRN PRN Reason: RADIOLOGY EXAM Stop: 11/13/17 13:53 Last Admin: 11/12/17 14:15 Dose: 100 ml Ketorolac Tromethamine (Toradol) 30 mg IVPUSH ONETIME ONE Stop: 11/14/17 10:21 Last Admin: 11/14/17 10:41 Dose: 30 mg Ketorolac Tromethamine (Toradol) 15 mg IVPUSH Q6H PRN PRN Reason: Pain Stop: 11/19/17 10:08 Last Admin: 11/14/17 17:01 Dose: 15 mg Morphine Sulfate (Morphine) 1 - 2 mg IVPUSH Q2H PRN PRN Reason: Pain Last Admin: 11/12/17 13:21 Dose: 2 mg Morphine Sulfate (Morphine) 4 - 8 mg IVPUSH Q2H PRN PRN Reason: Pain Last Admin: 11/13/17 09:30 Dose: 8 mg Morphine Sulfate (Morphine) 15 - 30 mg PO Q4H PRN PRN Reason: Pain Last Admin: 11/14/17 12:20 Dose: 30 mg Non-Formulary Medication (Total Parenteral Nutrition, Central) 0 ml .XX DAILY [facility] Stop: 11/17/17 16:00 Last Admin: 11/17/17 13:29 Dose: Not Given Sodium Chloride (Saline Flush) 10 ml FLUSH ONETIME ONE Stop: 11/12/17 13:53 Last Admin: 11/12/17 14:09 Dose: 10 ml Tramadol HCl (Ultram) 25 mg PO Q6H PRN PRN Reason: Pain - Exam Quality Assessment: DVT Prophylaxis General: Alert, Oriented, Cooperative, No Acute Distress Lungs: Clear to Auscultation, Normal Respiratory Effort Cardiovascular: Regular Rate, Regular Rhythm, No Murmurs GI/Abdominal Exam: Soft, No Organomegaly, Tender. No: Distended, Guarding, Rigid, Rebound Extremities: Non-Tender, No Pedal Edema Skin: Warm, Dry - Problem List Review Problem List Initiated/Reviewed/Updated: Yes - Plan Plan:: ASSESSMENT AND PLAN Acute right upper quadrant abdominal pain with nausea - nausea and vomiting have resolved, pain significantly improved, but still seems to be related to the right upper quadrant drain. 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 There does appear to be a new fistula or 2 forming in the upper right portion of the wound but it is very small at this time. She is on TPN. Surgical team is managing the wound care. This is complicated by severe protein calorie malnutrition. Hypokalemia - potassium within normal range this morning -daily labs -Continue TPN
[2017-11-18] MEDS: Pantoprazole 40 MG Tab.CR PO SCH (21:04)
[2017-11-18] MEDS: traZODone 50 MG Tab PO PRN (21:05)
[2017-11-18] MEDS: Mirtazapine 15 MG Tab PO SCH (21:05)
[2017-11-18] MEDS: Zolpidem 5 MG Tab PO PRN (21:06)
[2017-11-18] MEDS: Sodium Chloride 0.9% 1,000 ML IV SCH (21:14)
[2017-11-19] MEDS: FAT EMUL/SOY/MCT/OLIV/FISH OIL 100 ML IV SCH ×2 (06:56→22:10)
[2017-11-19] MEDS: Metoprolol Tartrate 25 MG Tab PO SCH ×2 (10:14→21:06)
[2017-11-19] MEDS: Fenofibrate,Micronized 67 MG Cap PO SCH (10:14)
[2017-11-19] MEDS: Venlafaxine 75 MG Cap.ER PO SCH (10:14)
[2017-11-19] MEDS: Bacitracin Oint 1 GM U/D Packet TOP SCH (10:23)
[2017-11-19] MEDS: Morphine 15 MG Tab PO PRN ×3 (11:04→21:07)
[2017-11-19] MEDS: Morphine 4 MG/ML Syringe IVPUSH PRN ×4 (11:05→21:08)
[2017-11-19] MEDS: Diazepam 5 MG Tab PO PRN ×2 (11:11→21:08)
--- NOTE | 2017-11-19 11:58 | PCM.PN ---
- General Info Date of Service: 11/19/17 Subjective Update: Ms. Vick has remained fairly stable over the past 24 hours. Right upper quadrant pain has been well-controlled she has had no nausea vomiting. Vital signs have been stable and she has remained afebrile. Functional Status: Reports: Tolerating Diet, Urinating - Review of Systems General: Reports: Weakness. Denies: Fever, Chills Pulmonary: Reports: No Symptoms Cardiovascular: Reports: No Symptoms Gastrointestinal: Reports: Abdominal Pain. Denies: Difficulty Swallowing, Nausea, Vomiting - Patient Data Vitals - Most Recent: Last Vital Signs Temp 98.5 F 11/19/17 10:17 Pulse 109 H 11/19/17 10:17 Resp 16 11/19/17 10:17 BP 129/62 11/19/17 10:17 Pulse Ox 99 11/19/17 10:17 Weight - Most Recent: 173 lb I&O - Last 24 Hours: Intake & Output 11/18/17 11/19/17 11/19/17 22:59 06:59 14:59 Intake Total 764 25 4892 Output Total 1800 600 Balance -1250 50 1690 Lab Results Last 24 Hours: Laboratory Results - last 24 hr 11/19/17 11/19/17 Range/Units 05:00 05:00 WBC 9.6 (4.5-11.0) K/uL RBC 3.28 L (3.30-5.50) M/uL Hgb 8.6 L (12.0-15.0) g/dL Hct 27.9 L (36.0-48.0) % MCV 85 (80-98) fL MCH 26 L (27-31) pg MCHC 31 L (32-36) % Plt Count 620 H (150-400) K/uL Sodium 140 (140-148) mmol/L Potassium 3.8 (3.6-5.2) mmol/L Chloride 106 (100-108) mmol/L Carbon Dioxide 26 (21-32) mmol/L Anion Gap 7.8 (5.0-14.0) mmol/L BUN 14 (7-18) mg/dL Creatinine 0.8 (0.6-1.0) mg/dL Est Cr Clr Drug Dosing 63.77 mL/min Estimated GFR (MDRD) > 60 (>60) Glucose 121 H (74-106) mg/dL Calcium 8.4 L (8.5-10.1) mg/dL Total Bilirubin 0.1 L (0.2-1.0) mg/dL AST 26 (15-37) U/L ALT 25 (12-78) U/L Alkaline Phosphatase 264 H (46-116) U/L Total Protein 5.8 L (6.4-8.2) g/dL Albumin 1.4 L (3.4-5.0) g/dL Globulin 4.4 H (2.3-3.5) g/dL Albumin/Globulin Ratio 0.3 L (1.2-2.2) Med Orders - Current: Current Medications Acetaminophen (Tylenol) 650 mg RECTAL Q6H PRN PRN Reason: Fever Albuterol/Ipratropium (Duoneb 3.0-0.5 Mg/3 Ml) 3 ml NEB Q4H PRN PRN Reason: Wheezing Bacitracin (Bacitracin Oint 1 Gm) 1 dose TOP DAILY [facility] Last Admin: 11/19/17 10:23 Dose: 1 dose Bisacodyl (Dulcolax) 5 mg PO DAILY PRN PRN Reason: Constipation Cholecalciferol (Vitamin D3) 50,000 unit PO Mo@0900 [facility] Last Admin: 11/17/17 09:20 Dose: 50,000 unit Diazepam (Valium.) 5 mg PO QID PRN PRN Reason: Anxiety Last Admin: 11/19/17 11:11 Dose: 5 mg Docusate Sodium (Colace) 100 mg PO BID PRN PRN Reason: Constipation Fenofibrate (Fenofibrate) 134 mg PO DAILY [facility] Last Admin: 11/19/17 10:14 Dose: 134 mg Heparin Sodium (Porcine) (Heparin Lock Flush 100 Units/Ml) 500 units FLUSH ASDIRECTED PRN PRN Reason: maintanence Last Admin: 11/14/17 07:54 Dose: 500 units Sodium Chloride (Normal Saline) 1,000 mls @ 0 mls/hr IV TITRATE [facility] PRN Reason: Protocol Last Admin: 11/18/17 21:14 Dose: 58.3 mls/hr Multivitamins/Minerals 10 ml/Chromium/Copper/Manganese/Seleni/Zn 1 ml/ Amino Ac/ Electrol/Dextrose/Calcium 2,011 mls @ 60 mls/hr IV .Q24H [facility] Last Admin: 11/18/17 14:59 Dose: 60 mls/hr FAT EMUL/SOY/MCT/OLIV/FISH OIL (Smoflipid 20% Iv Fat Emulsion) 100 mls @ 6.2 mls/hr IV .Q16H8M [facility] Last Admin: 11/19/17 06:56 Dose: 6.2 mls/hr Meropenem 1 gm/ Sodium (Chloride) 50 mls @ 100 mls/hr IV Q8H [facility] Last Admin: 11/19/17 08:42 Dose: 100 mls/hr Metoprolol Tartrate (Lopressor) 25 mg PO BID [facility] Last Admin: 11/19/17 10:14 Dose: 25 mg Mirtazapine (Remeron) 15 mg PO BEDTIME [facility] Last Admin: 11/18/17 21:05 Dose: 15 mg Morphine Sulfate (Morphine) 4 - 8 mg IVPUSH Q2H PRN PRN Reason: Pain (severe 7-10) Last Admin: 11/19/17 11:05 Dose: 4 mg Morphine Sulfate (Morphine) 15 - 30 mg PO Q4H PRN PRN Reason: Pain Last Admin: 11/19/17 11:04 Dose: 15 mg Ondansetron HCl (Zofran) 4 - 8 mg IVPUSH Q4H PRN PRN Reason: Nausea/Vomiting Last Admin: 11/12/17 16:10 Dose: 8 mg Pantoprazole Sodium (Protonix) 40 mg PO BEDTIME [facility] Last Admin: 11/18/17 21:04 Dose: 40 mg Scopolamine (Transderm-Scop) 1.5 mg TOP Q72H PRN PRN Reason: Nausea Trazodone HCl (Trazodone) 100 mg PO BEDTIME PRN PRN Reason: Insomnia Last Admin: 11/18/17 21:05 Dose: 100 mg Venlafaxine HCl (Effexor Xr) 300 mg PO DAILY [facility] Last Admin: 11/19/17 10:14 Dose: 300 mg Zolpidem Tartrate (Ambien) 5 mg PO BEDTIME PRN PRN Reason: Sleep Last Admin: 11/18/17 21:06 Dose: 5 mg Discontinued Medications Hydromorphone HCl (Dilaudid) 0.5 mg IVPUSH Q2H PRN PRN Reason: Pain (severe 7-10) Last Admin: 11/15/17 09:30 Dose: 0.5 mg Hydromorphone HCl (Dilaudid) 2 mg PO Q3H PRN PRN Reason: Pain Last Admin: 11/15/17 09:24 Dose: 2 mg Piperacillin/Tazobactam/ (Dextrose 4.5 gm/ Premix) 100 mls @ 200 mls/hr IV Q8H [facility] Last Admin: 11/12/17 17:10 Dose: Not Given Multivitamins/Minerals 10 ml/Chromium/Copper/Manganese/Seleni/Zn 1 ml/ Amino Ac/ Electrol/Dextrose/Calcium 2,011 mls @ 60 mls/hr IV .Q24H [facility] Vancomycin HCl 1.2 gm/ Sodium (Chloride) 250 mls @ 167 mls/hr IV Q24H [facility] Last Admin: 11/15/17 08:01 Dose: 167 mls/hr FAT EMUL/SOY/MCT/OLIV/FISH OIL (Smoflipid 20% Iv Fat Emulsion) 100 mls @ 6.2 mls/hr IV .Q16H8M [facility] Stop: 11/16/17 00:30 Potassium Chloride 40 meq/ (Premix) 100 mls @ 25 mls/hr IV ONETIME ONE Stop: 11/12/17 14:59 Last Admin: 11/12/17 12:52 Dose: 25 mls/hr Non-Formulary Medication (Nf Drug) 1,590 mls @ 66.2 mls/hr IV .Q24H [facility] Stop: 11/16/17 13:59 Last Admin: 11/15/17 14:19 Dose: 65.4 mls/hr Lactated Ringer's (Ringers, Lactated) 500 mls @ 250 mls/hr IV ASDIRECTED [facility] Stop: 11/12/17 15:16 Sodium Chloride (Normal Saline) 75 mls @ 3.5 mls/sec IV ASDIRECTED [facility] Stop: 11/12/17 16:00 Last Admin: 11/12/17 14:15 Dose: 3.5 mls/sec Potassium Chloride 20 meq/Lidocaine HCl 2 ml/ Sodium Chloride 112 mls @ 50 mls/ hr IV Q2H [facility] Stop: 11/12/17 21:29 Last Admin: 11/12/17 20:20 Dose: Not Given Potassium Chloride (Kcl 20 Meq In Water 100 Ml) Confirm Administered Dose 100 mls @ as directed .ROUTE .STK-MED ONE Stop: 11/12/17 19:49 Last Admin: 11/12/17 20:08 Dose: Not Given Potassium Chloride (Kcl 20 Meq In Water 100 Ml) Confirm Administered Dose 100 mls @ as directed .ROUTE .STK-MED ONE Stop: 11/12/17 19:50 Last Admin: 11/12/17 20:08 Dose: Not Given Potassium Chloride (Kcl 20 Meq In Water 100 Ml) 100 mls @ 50 mls/hr IV Q2H [facility] Stop: 11/13/17 00:59 Last Admin: 11/12/17 22:16 Dose: 50 mls/hr Potassium Chloride 40 meq/ (Premix) 100 mls @ 25 mls/hr IV ONETIME ONE Stop: 11/16/17 14:59 Last Admin: 11/16/17 12:37 Dose: 25 mls/hr Iopamidol (Isovue-300 (61%)) 100 ml IV . DIRECTED PRN PRN Reason: RADIOLOGY EXAM Stop: 11/13/17 13:53 Last Admin: 11/12/17 14:15 Dose: 100 ml Ketorolac Tromethamine (Toradol) 30 mg IVPUSH ONETIME ONE Stop: 11/14/17 10:21 Last Admin: 11/14/17 10:41 Dose: 30 mg Ketorolac Tromethamine (Toradol) 15 mg IVPUSH Q6H PRN PRN Reason: Pain Stop: 11/19/17 10:08 Last Admin: 11/14/17 17:01 Dose: 15 mg Morphine Sulfate (Morphine) 1 - 2 mg IVPUSH Q2H PRN PRN Reason: Pain Last Admin: 11/12/17 13:21 Dose: 2 mg Morphine Sulfate (Morphine) 4 - 8 mg IVPUSH Q2H PRN PRN Reason: Pain Last Admin: 11/13/17 09:30 Dose: 8 mg Morphine Sulfate (Morphine) 15 - 30 mg PO Q4H PRN PRN Reason: Pain Last Admin: 11/14/17 12:20 Dose: 30 mg Non-Formulary Medication (Total Parenteral Nutrition, Central) 0 ml .XX DAILY [facility] Stop: 11/17/17 16:00 Last Admin: 11/17/17 13:29 Dose: Not Given Sodium Chloride (Saline Flush) 10 ml FLUSH ONETIME ONE Stop: 11/12/17 13:53 Last Admin: 11/12/17 14:09 Dose: 10 ml Tramadol HCl (Ultram) 25 mg PO Q6H PRN PRN Reason: Pain - Exam Quality Assessment: Central Line/PICC, DVT Prophylaxis General: Alert, Oriented, Cooperative, No Acute Distress Lungs: Clear to Auscultation, Normal Respiratory Effort Cardiovascular: Regular Rate, Regular Rhythm, No Murmurs GI/Abdominal Exam: Soft, No Organomegaly, Tender. No: Distended, Guarding, Rigid, Rebound Extremities: Non-Tender, No Pedal Edema Skin: Warm, Dry, Intact - Problem List Review Problem List Initiated/Reviewed/Updated: Yes - My Orders Last 24 Hours: My Active Orders 11/20/17 05:00 BASIC METABOLIC PANEL,BMP [CHEM] Timed MAGNESIUM [CHEM] Timed - Plan Plan:: ASSESSMENT AND PLAN Acute right upper quadrant abdominal pain with nausea - nausea and vomiting have resolved, pain significantly improved, but still seems to be related to the right upper quadrant drain. 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 There does appear to be a new fistula or 2 forming in the upper right portion of the wound but it is very small at this time. She is on TPN. Surgical team is managing the wound care. This is complicated by severe protein calorie malnutrition. Hypokalemia - potassium within normal range this morning -daily labs -Continue TPN
[2017-11-19] MEDS: AA 5%/Calcium/D15W/Lytes 2,000 ML with MVI, Adult with Vitamin K 10 ML, Chromium/Copper... IV SCH ×3 (15:56)
[2017-11-19] MEDS: Pantoprazole 40 MG Tab.CR PO SCH (21:07)
[2017-11-19] MEDS: Zolpidem 5 MG Tab PO PRN (21:07)
[2017-11-19] MEDS: Mirtazapine 15 MG Tab PO SCH (21:07)
[2017-11-19] MEDS: traZODone 50 MG Tab PO PRN (21:08)
[2017-11-19] MEDS: Sodium Chloride 0.9% 1,000 ML IV SCH (21:17)
[2017-11-20] MEDS: Fenofibrate,Micronized 67 MG Cap PO SCH (10:00)
[2017-11-20] MEDS: Metoprolol Tartrate 25 MG Tab PO SCH ×2 (10:01→21:54)
[2017-11-20] MEDS: Venlafaxine 75 MG Cap.ER PO SCH (10:04)
[2017-11-20] MEDS: Bacitracin Oint 1 GM U/D Packet TOP SCH (10:05)
[2017-11-20] MEDS: Morphine 15 MG Tab PO PRN ×4 (10:11→22:07)
[2017-11-20] MEDS: Morphine 4 MG/ML Syringe IVPUSH PRN ×4 (10:12→22:08)
[2017-11-20] MEDS: FAT EMUL/SOY/MCT/OLIV/FISH OIL 100 ML IV SCH (14:41)
[2017-11-20] MEDS: AA 5%/Calcium/D15W/Lytes 2,000 ML with MVI, Adult with Vitamin K 10 ML, Chromium/Copper... IV SCH ×3 (14:41)
[2017-11-20] MEDS: Sodium Chloride 0.9% 1,000 ML IV SCH ×2 (14:43→22:06)
--- NOTE | 2017-11-20 17:27 | PCM.PN ---
- General Info Date of Service: 11/20/17 Subjective Update: Ms. Vick has remained stable over the past 24 hours, continues to experience right upper quadrant pain related to the transcutaneous hepatic catheter. Vital signs have been good and she has remained afebrile. Functional Status: Reports: Tolerating Diet, Ambulating, Urinating - Review of Systems General: Reports: Weakness. Denies: Fever, Chills Pulmonary: Reports: No Symptoms Cardiovascular: Reports: No Symptoms Gastrointestinal: Reports: Abdominal Pain. Denies: Difficulty Swallowing, Nausea, Vomiting - Patient Data Vitals - Most Recent: Last Vital Signs Temp 99.4 F 11/20/17 16:03 Pulse 97 11/20/17 16:03 Resp 16 11/20/17 16:03 BP 98/55 L 11/20/17 16:03 Pulse Ox 99 11/20/17 16:03 Weight - Most Recent: 172 lb 9.6 oz I&O - Last 24 Hours: Intake & Output 11/20/17 11/20/17 11/20/17 06:59 14:59 22:59 Intake Total 752 360 Output Total 1250 Balance 752 -890 Lab Results Last 24 Hours: Laboratory Results - last 24 hr 11/20/17 11/20/17 Range/Units 05:20 05:20 WBC 9.6 (4.5-11.0) K/uL RBC 3.25 L (3.30-5.50) M/uL Hgb 8.5 L (12.0-15.0) g/dL Hct 27.3 L (36.0-48.0) % MCV 84 (80-98) fL MCH 26 L (27-31) pg MCHC 31 L (32-36) % Plt Count 158 (150-400) K/uL Sodium 143 (140-148) mmol/L Potassium 3.6 (3.6-5.2) mmol/L Chloride 108 (100-108) mmol/L Carbon Dioxide 25 (21-32) mmol/L Anion Gap 9.8 (5.0-14.0) mmol/L BUN 15 (7-18) mg/dL Creatinine 0.8 (0.6-1.0) mg/dL Est Cr Clr Drug Dosing 63.77 mL/min Estimated GFR (MDRD) > 60 (>60) Glucose 115 H (74-106) mg/dL Calcium 8.6 (8.5-10.1) mg/dL Magnesium 1.8 (1.8-2.4) mg/dL Med Orders - Current: Current Medications Acetaminophen (Tylenol) 650 mg RECTAL Q6H PRN PRN Reason: Fever Albuterol/Ipratropium (Duoneb 3.0-0.5 Mg/3 Ml) 3 ml NEB Q4H PRN PRN Reason: Wheezing Bacitracin (Bacitracin Oint 1 Gm) 1 dose TOP DAILY [facility] Last Admin: 11/20/17 10:05 Dose: Not Given Bisacodyl (Dulcolax) 5 mg PO DAILY PRN PRN Reason: Constipation Cholecalciferol (Vitamin D3) 50,000 unit PO Mo@0900 [facility] Last Admin: 11/17/17 09:20 Dose: 50,000 unit Diazepam (Valium.) 5 mg PO QID PRN PRN Reason: Anxiety Last Admin: 11/19/17 21:08 Dose: 5 mg Docusate Sodium (Colace) 100 mg PO BID PRN PRN Reason: Constipation Fenofibrate (Fenofibrate) 134 mg PO DAILY [facility] Last Admin: 11/20/17 10:00 Dose: 134 mg Heparin Sodium (Porcine) (Heparin Lock Flush 100 Units/Ml) 500 units FLUSH ASDIRECTED PRN PRN Reason: maintanence Last Admin: 11/14/17 07:54 Dose: 500 units Sodium Chloride (Normal Saline) 1,000 mls @ 0 mls/hr IV TITRATE [facility] PRN Reason: Protocol Last Admin: 11/20/17 14:43 Dose: 27 mls/hr Multivitamins/Minerals 10 ml/Chromium/Copper/Manganese/Seleni/Zn 1 ml/ Amino Ac/ Electrol/Dextrose/Calcium 2,011 mls @ 60 mls/hr IV .Q24H [facility] Last Admin: 11/20/17 14:41 Dose: 60 mls/hr FAT EMUL/SOY/MCT/OLIV/FISH OIL (Smoflipid 20% Iv Fat Emulsion) 100 mls @ 6.2 mls/hr IV .Q16H8M [facility] Last Admin: 11/20/17 14:41 Dose: 6.2 mls/hr Metoprolol Tartrate (Lopressor) 25 mg PO BID [facility] Last Admin: 11/20/17 10:01 Dose: 25 mg Mirtazapine (Remeron) 15 mg PO BEDTIME [facility] Last Admin: 11/19/17 21:07 Dose: 15 mg Morphine Sulfate (Morphine) 4 - 8 mg IVPUSH Q2H PRN PRN Reason: Pain (severe 7-10) Last Admin: 11/20/17 13:59 Dose: 4 mg Morphine Sulfate (Morphine) 15 - 30 mg PO Q4H PRN PRN Reason: Pain Last Admin: 11/20/17 14:00 Dose: 30 mg Ondansetron HCl (Zofran) 4 - 8 mg IVPUSH Q4H PRN PRN Reason: Nausea/Vomiting Last Admin: 11/12/17 16:10 Dose: 8 mg Pantoprazole Sodium (Protonix) 40 mg PO BEDTIME [facility] Last Admin: 11/19/17 21:07 Dose: 40 mg Scopolamine (Transderm-Scop) 1.5 mg TOP Q72H PRN PRN Reason: Nausea Trazodone HCl (Trazodone) 100 mg PO BEDTIME PRN PRN Reason: Insomnia Last Admin: 11/19/17 21:08 Dose: 100 mg Venlafaxine HCl (Effexor Xr) 300 mg PO DAILY [facility] Last Admin: 11/20/17 10:04 Dose: 300 mg Zolpidem Tartrate (Ambien) 5 mg PO BEDTIME PRN PRN Reason: Sleep Last Admin: 11/19/17 21:07 Dose: 5 mg Discontinued Medications Hydromorphone HCl (Dilaudid) 0.5 mg IVPUSH Q2H PRN PRN Reason: Pain (severe 7-10) Last Admin: 11/15/17 09:30 Dose: 0.5 mg Hydromorphone HCl (Dilaudid) 2 mg PO Q3H PRN PRN Reason: Pain Last Admin: 11/15/17 09:24 Dose: 2 mg Piperacillin/Tazobactam/ (Dextrose 4.5 gm/ Premix) 100 mls @ 200 mls/hr IV Q8H [facility] Last Admin: 11/12/17 17:10 Dose: Not Given Multivitamins/Minerals 10 ml/Chromium/Copper/Manganese/Seleni/Zn 1 ml/ Amino Ac/ Electrol/Dextrose/Calcium 2,011 mls @ 60 mls/hr IV .Q24H [facility] Vancomycin HCl 1.2 gm/ Sodium (Chloride) 250 mls @ 167 mls/hr IV Q24H [facility] Last Admin: 11/15/17 08:01 Dose: 167 mls/hr FAT EMUL/SOY/MCT/OLIV/FISH OIL (Smoflipid 20% Iv Fat Emulsion) 100 mls @ 6.2 mls/hr IV .Q16H8M [facility] Stop: 11/16/17 00:30 Potassium Chloride 40 meq/ (Premix) 100 mls @ 25 mls/hr IV ONETIME ONE Stop: 11/12/17 14:59 Last Admin: 11/12/17 12:52 Dose: 25 mls/hr Non-Formulary Medication (Nf Drug) 1,590 mls @ 66.2 mls/hr IV .Q24H [facility] Stop: 11/16/17 13:59 Last Admin: 11/15/17 14:19 Dose: 65.4 mls/hr Lactated Ringer's (Ringers, Lactated) 500 mls @ 250 mls/hr IV ASDIRECTED [facility] Stop: 11/12/17 15:16 Sodium Chloride (Normal Saline) 75 mls @ 3.5 mls/sec IV ASDIRECTED [facility] Stop: 11/12/17 16:00 Last Admin: 11/12/17 14:15 Dose: 3.5 mls/sec Meropenem 1 gm/ Sodium (Chloride) 50 mls @ 100 mls/hr IV Q8H [facility] Last Admin: 11/20/17 10:00 Dose: 100 mls/hr Potassium Chloride 20 meq/Lidocaine HCl 2 ml/ Sodium Chloride 112 mls @ 50 mls/ hr IV Q2H [facility] Stop: 11/12/17 21:29 Last Admin: 11/12/17 20:20 Dose: Not Given Potassium Chloride (Kcl 20 Meq In Water 100 Ml) Confirm Administered Dose 100 mls @ as directed .ROUTE .STK-MED ONE Stop: 11/12/17 19:49 Last Admin: 11/12/17 20:08 Dose: Not Given Potassium Chloride (Kcl 20 Meq In Water 100 Ml) Confirm Administered Dose 100 mls @ as directed .ROUTE .STK-MED ONE Stop: 11/12/17 19:50 Last Admin: 11/12/17 20:08 Dose: Not Given Potassium Chloride (Kcl 20 Meq In Water 100 Ml) 100 mls @ 50 mls/hr IV Q2H [facility] Stop: 11/13/17 00:59 Last Admin: 11/12/17 22:16 Dose: 50 mls/hr Potassium Chloride 40 meq/ (Premix) 100 mls @ 25 mls/hr IV ONETIME ONE Stop: 11/16/17 14:59 Last Admin: 11/16/17 12:37 Dose: 25 mls/hr Iopamidol (Isovue-300 (61%)) 100 ml IV . DIRECTED PRN PRN Reason: RADIOLOGY EXAM Stop: 11/13/17 13:53 Last Admin: 11/12/17 14:15 Dose: 100 ml Ketorolac Tromethamine (Toradol) 30 mg IVPUSH ONETIME ONE Stop: 11/14/17 10:21 Last Admin: 11/14/17 10:41 Dose: 30 mg Ketorolac Tromethamine (Toradol) 15 mg IVPUSH Q6H PRN PRN Reason: Pain Stop: 11/19/17 10:08 Last Admin: 11/14/17 17:01 Dose: 15 mg Morphine Sulfate (Morphine) 1 - 2 mg IVPUSH Q2H PRN PRN Reason: Pain Last Admin: 11/12/17 13:21 Dose: 2 mg Morphine Sulfate (Morphine) 4 - 8 mg IVPUSH Q2H PRN PRN Reason: Pain Last Admin: 11/13/17 09:30 Dose: 8 mg Morphine Sulfate (Morphine) 15 - 30 mg PO Q4H PRN PRN Reason: Pain Last Admin: 11/14/17 12:20 Dose: 30 mg Non-Formulary Medication (Total Parenteral Nutrition, Central) 0 ml .XX DAILY [facility] Stop: 11/17/17 16:00 Last Admin: 11/17/17 13:29 Dose: Not Given Sodium Chloride (Saline Flush) 10 ml FLUSH ONETIME ONE Stop: 11/12/17 13:53 Last Admin: 11/12/17 14:09 Dose: 10 ml Tramadol HCl (Ultram) 25 mg PO Q6H PRN PRN Reason: Pain - Exam Quality Assessment: DVT Prophylaxis General: Alert, Oriented, Cooperative, No Acute Distress Lungs: Clear to Auscultation, Normal Respiratory Effort Cardiovascular: Regular Rate, Regular Rhythm, No Murmurs Extremities: Non-Tender, No Pedal Edema - Problem List Review Problem List Initiated/Reviewed/Updated: Yes - Plan Plan:: ASSESSMENT AND PLAN Acute right upper quadrant abdominal pain with nausea - nausea and vomiting have resolved, pain significantly improved, but still seems to be related to the right upper quadrant drain. White blood cell count has normalized and she has remained afebrile. 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 There does appear to be a new fistula or 2 forming in the upper right portion of the wound but it is very small at this time. She is on TPN. Surgical team is managing the wound care. This is complicated by severe protein calorie malnutrition. Hypokalemia - potassium within normal range this morning -daily labs -Continue TPN
[2017-11-20] MEDS: Pantoprazole 40 MG Tab.CR PO SCH (21:54)
[2017-11-20] MEDS: traZODone 50 MG Tab PO PRN (21:54)
[2017-11-20] MEDS: Zolpidem 5 MG Tab PO PRN (21:55)
[2017-11-20] MEDS: Diazepam 5 MG Tab PO PRN (21:55)
[2017-11-20] MEDS: Mirtazapine 15 MG Tab PO SCH (21:55)
[2017-11-21] MEDS: FAT EMUL/SOY/MCT/OLIV/FISH OIL 100 ML IV SCH (08:06)
[2017-11-21] MEDS: Sodium Chloride 0.9% 1,000 ML IV SCH ×2 (08:09→10:12)
[2017-11-21] MEDS: Venlafaxine 75 MG Cap.ER PO SCH (10:01)
[2017-11-21] MEDS: Metoprolol Tartrate 25 MG Tab PO SCH (10:01)
[2017-11-21] MEDS: Fenofibrate,Micronized 67 MG Cap PO SCH (10:01)
[2017-11-21] MEDS: Morphine 15 MG Tab PO PRN (10:02)
[2017-11-21] MEDS: Diazepam 5 MG Tab PO PRN (10:02)
[2017-11-21] MEDS: Morphine 4 MG/ML Syringe IVPUSH PRN (10:16)
[2017-11-21] MEDS: Bacitracin Oint 1 GM U/D Packet TOP SCH (10:16)
[2017-11-21 11:47] VITALS: BP 106/57
--- NOTE | 2017-12-04 12:19 | DISCH ---
DISCHARGE DIAGNOSES: Right upper quadrant pain and fever. SUMMARY OF HOSPITAL COURSE: This is a 62-year-old female who was a swing bed patient, who was admitted to inpatient for evaluation and treatment of right upper quadrant abdominal pain and fever. She remained on inpatient status until this had resolved. At present, her pain is gone/very minimal. She has no more nausea or vomiting and fever has normalized. Etiology remains unknown. Continue same management at this time on swing bed, and continue same management for her multiple enterocutaneous fistulas. ADDITIONAL CONSULTATIONS DURING THIS HOSPITALIZATION: With the Hospice Service. Please see their notes for further details. FOLLOWUP: The patient remains on swing bed, I therefore continue in the current physical location. MEDICATIONS: Please see MAR, but are exactly the same.
== END 2017-11-21 11:45 | disposition swing bed (61) | DRG 981 ==
LOC: JP.MS 09:00
PROVIDERS: ADMIT Surgery; ATTEND Surgery
PROC: 05JY0ZZ Inspection of Upper Vein, Open Approach (ICD-10-PCS; principal; 2017-11-12)
DX: R10.11 Right upper quadrant pain (principal); E43 Unspecified severe protein-calorie malnutrition; K63.2 Fistula of intestine; Z68.29 Body mass index [BMI] 29.0-29.9, adult; I10 Essential (primary) hypertension; J44.9 Chronic obstructive pulmonary disease, unspecified; E87.6 Hypokalemia; Z87.891 Personal history of nicotine dependence; Z95.5 Presence of coronary angioplasty implant and graft; E55.9 Vitamin D deficiency, unspecified; Z86.73 Personal history of transient ischemic attack (TIA), and cerebral infarction without residual deficits; Z86.718 Personal history of other venous thrombosis and embolism; Z86.711 Personal history of pulmonary embolism; F32.9 Major depressive disorder, single episode, unspecified; F41.9 Anxiety disorder, unspecified; M54.9 Dorsalgia, unspecified; G89.29 Other chronic pain; K21.9 Gastro-esophageal reflux disease without esophagitis; Z87.01 Personal history of pneumonia (recurrent); Z86.74 Personal history of sudden cardiac arrest; I25.2 Old myocardial infarction; H54.7 Unspecified visual loss; Z96.619 Presence of unspecified artificial shoulder joint; Z88.5 Allergy status to narcotic agent; Z91.013 Allergy to seafood
CPT/HCPCS: 36415; 74177; 74177-26; 80048; 80053; 80202; 82150; 83690; 83735; 84100; 84478; 85027; 97110-GP; 97161-GP; A9270-GY; C1751; J1170; J1642; J1885; J2185; J2270; J2405; J3370; J3480; J7030; J7040; J7050; Q9967

== ENCOUNTER 2017-11-21 11:45 | Inpatient (IN) | payer MEDICARE, MEDICAID ==
[2017-11-21] MEDS ORDERED: Albuterol/Ipratropium 3.0-0.5 MG/3 ML Neb Soln NEB PRN (13:52)
[2017-11-21] MEDS ORDERED: Acetaminophen 650 MG Supp RECTAL PRN (13:52)
[2017-11-21] MEDS ORDERED: Bisacodyl 5 MG Tab PO PRN (13:53)
[2017-11-21] MEDS ORDERED: Docusate Sodium 100 MG Cap PO PRN (13:54)
[2017-11-21] MEDS ORDERED: Scopolamine 1.5 MG Transdermal Patch TOP PRN (13:55)
[2017-11-21] MEDS ORDERED: Ondansetron 4 MG/2 ML SDV IVPUSH PRN (14:02)
[2017-11-21] MEDS: AA 5%/Calcium/D15W/Lytes 2,000 ML with MVI, Adult with Vitamin K 10 ML, Chromium/Copper... IV SCH ×3 (14:19)
[2017-11-21] MEDS: Morphine 15 MG Tab PO PRN ×3 (14:19→22:25)
[2017-11-21] MEDS: Morphine 4 MG/ML Syringe IVPUSH PRN ×3 (14:26→22:25)
[2017-11-21] MEDS: Zolpidem 5 MG Tab PO PRN (21:30)
[2017-11-21] MEDS: Metoprolol Tartrate 25 MG Tab PO SCH (21:30)
[2017-11-21] MEDS: Diazepam 5 MG Tab PO PRN (21:30)
[2017-11-21] MEDS: traZODone 50 MG Tab PO PRN (21:30)
[2017-11-21] MEDS: Mirtazapine 15 MG Tab PO SCH (21:30)
[2017-11-21] MEDS: Pantoprazole 40 MG Tab.CR PO SCH (21:30)
[2017-11-21] MEDS: Sodium Chloride 0.9% 1,000 ML IV SCH (21:38)
[2017-11-22] MEDS: FAT EMUL/SOY/MCT/OLIV/FISH OIL 100 ML IV SCH ×2 (01:09→16:58)
[2017-11-22] MEDS: Bacitracin Oint 1 GM U/D Packet TOP SCH (09:18)
[2017-11-22] MEDS: Venlafaxine 75 MG Cap.ER PO SCH (09:19)
[2017-11-22] MEDS: Fenofibrate,Micronized 67 MG Cap PO SCH (09:20)
[2017-11-22] MEDS: Metoprolol Tartrate 25 MG Tab PO SCH ×2 (09:25→21:11)
[2017-11-22] MEDS: Sodium Chloride 0.9% 1,000 ML IV SCH ×2 (09:28→21:21)
[2017-11-22] MEDS: Morphine 4 MG/ML Syringe IVPUSH PRN ×4 (09:39→22:26)
[2017-11-22] MEDS: Morphine 15 MG Tab PO PRN ×4 (09:40→22:26)
[2017-11-22] MEDS: Diazepam 5 MG Tab PO PRN ×2 (09:40→21:10)
[2017-11-22] MEDS: AA 5%/Calcium/D15W/Lytes 2,000 ML with MVI, Adult with Vitamin K 10 ML, Chromium/Copper... IV SCH ×3 (14:29)
[2017-11-22] MEDS: Zolpidem 5 MG Tab PO PRN (21:10)
[2017-11-22] MEDS: Mirtazapine 15 MG Tab PO SCH (21:10)
[2017-11-22] MEDS: Pantoprazole 40 MG Tab.CR PO SCH (21:10)
[2017-11-22] MEDS: traZODone 50 MG Tab PO PRN (21:10)
[2017-11-23] MEDS: Sodium Chloride 0.9% 1,000 ML IV SCH ×3 (04:03→22:59)
[2017-11-23] MEDS: Morphine 4 MG/ML Syringe IVPUSH PRN ×4 (09:15→22:47)
[2017-11-23] MEDS: Morphine 15 MG Tab PO PRN ×4 (09:15→22:46)
[2017-11-23] MEDS: Diazepam 5 MG Tab PO PRN ×2 (09:16→22:26)
[2017-11-23] MEDS: Venlafaxine 75 MG Cap.ER PO SCH (09:20)
[2017-11-23] MEDS: Fenofibrate,Micronized 67 MG Cap PO SCH (09:21)
[2017-11-23] MEDS: Metoprolol Tartrate 25 MG Tab PO SCH ×2 (09:22→22:26)
[2017-11-23] MEDS: Bacitracin Oint 1 GM U/D Packet TOP SCH (09:25)
[2017-11-23] MEDS: FAT EMUL/SOY/MCT/OLIV/FISH OIL 100 ML IV SCH (09:25)
[2017-11-23] MEDS: AA 5%/Calcium/D15W/Lytes 2,000 ML with MVI, Adult with Vitamin K 10 ML, Chromium/Copper... IV SCH ×3 (14:10)
[2017-11-23] MEDS: Pantoprazole 40 MG Tab.CR PO SCH (22:25)
[2017-11-23] MEDS: traZODone 50 MG Tab PO PRN (22:25)
[2017-11-23] MEDS: Mirtazapine 15 MG Tab PO SCH (22:26)
[2017-11-23] MEDS: Zolpidem 5 MG Tab PO PRN (22:26)
[2017-11-24] MEDS: FAT EMUL/SOY/MCT/OLIV/FISH OIL 100 ML IV SCH ×2 (01:08→17:04)
[2017-11-24] MEDS: Sodium Chloride 0.9% 1,000 ML IV SCH ×3 (01:16→22:35)
[2017-11-24] MEDS: Venlafaxine 75 MG Cap.ER PO SCH (10:59)
[2017-11-24] MEDS: Bacitracin Oint 1 GM U/D Packet TOP SCH (11:00)
[2017-11-24] MEDS: Fenofibrate,Micronized 67 MG Cap PO SCH (11:00)
[2017-11-24] MEDS: VITAMIN D3 50000 UNIT PO SCH (11:00)
[2017-11-24] MEDS: Morphine 15 MG Tab PO PRN ×3 (11:01→22:29)
[2017-11-24] MEDS: Metoprolol Tartrate 25 MG Tab PO SCH ×2 (11:02→22:28)
[2017-11-24] MEDS: Morphine 4 MG/ML Syringe IVPUSH PRN ×5 (11:02→22:29)
[2017-11-24] MEDS: AA 5%/Calcium/D15W/Lytes 2,000 ML with MVI, Adult with Vitamin K 10 ML, Chromium/Copper... IV SCH ×3 (14:40)
[2017-11-24] MEDS: Nystatin Topical Powder 15 GM Bottle TOP SCH ×2 (17:30→22:43)
[2017-11-24] MEDS: Mirtazapine 15 MG Tab PO SCH (22:28)
[2017-11-24] MEDS: Zolpidem 5 MG Tab PO PRN (22:28)
[2017-11-24] MEDS: Pantoprazole 40 MG Tab.CR PO SCH (22:28)
[2017-11-24] MEDS: Diazepam 5 MG Tab PO PRN (22:29)
[2017-11-24] MEDS: traZODone 50 MG Tab PO PRN (22:35)
[2017-11-25] MEDS: FAT EMUL/SOY/MCT/OLIV/FISH OIL 100 ML IV SCH (10:00)
[2017-11-25] MEDS: Fenofibrate,Micronized 67 MG Cap PO SCH (12:27)
[2017-11-25] MEDS: Venlafaxine 75 MG Cap.ER PO SCH (12:27)
[2017-11-25] MEDS: Bacitracin Oint 1 GM U/D Packet TOP SCH (12:29)
[2017-11-25] MEDS: Nystatin Topical Powder 15 GM Bottle TOP SCH ×3 (12:30→21:47)
[2017-11-25] MEDS: Morphine 15 MG Tab PO PRN ×3 (12:31→21:50)
[2017-11-25] MEDS: Metoprolol Tartrate 25 MG Tab PO SCH ×2 (12:33→21:53)
[2017-11-25] MEDS: AA 5%/Calcium/D15W/Lytes 2,000 ML with MVI, Adult with Vitamin K 10 ML, Chromium/Copper... IV SCH ×3 (14:04)
[2017-11-25] MEDS: Pantoprazole 40 MG Tab.CR PO SCH (21:47)
[2017-11-25] MEDS: Diazepam 5 MG Tab PO PRN (21:49)
[2017-11-25] MEDS: Zolpidem 5 MG Tab PO PRN (21:49)
[2017-11-25] MEDS: traZODone 50 MG Tab PO PRN (21:49)
[2017-11-25] MEDS: Mirtazapine 15 MG Tab PO SCH (21:57)
[2017-11-25] MEDS: Sodium Chloride 0.9% 1,000 ML IV SCH (22:07)
[2017-11-26] MEDS: FAT EMUL/SOY/MCT/OLIV/FISH OIL 100 ML IV SCH ×2 (01:10→16:59)
[2017-11-26] MEDS: Sodium Chloride 0.9% 1,000 ML IV SCH (02:43)
[2017-11-26] MEDS: Venlafaxine 75 MG Cap.ER PO SCH (11:54)
[2017-11-26] MEDS: Fenofibrate,Micronized 67 MG Cap PO SCH (11:55)
[2017-11-26] MEDS: Metoprolol Tartrate 25 MG Tab PO SCH ×2 (11:57→21:38)
[2017-11-26] MEDS: Bacitracin Oint 1 GM U/D Packet TOP SCH (12:11)
[2017-11-26] MEDS: Nystatin Topical Powder 15 GM Bottle TOP SCH ×3 (12:12→21:43)
[2017-11-26] MEDS: Morphine 15 MG Tab PO PRN ×3 (12:23→21:40)
[2017-11-26] MEDS: AA 5%/Calcium/D15W/Lytes 2,000 ML with MVI, Adult with Vitamin K 10 ML, Chromium/Copper... IV SCH ×3 (14:36)
[2017-11-26] MEDS: Mirtazapine 15 MG Tab PO SCH (21:38)
[2017-11-26] MEDS: Pantoprazole 40 MG Tab.CR PO SCH (21:39)
[2017-11-26] MEDS: traZODone 50 MG Tab PO PRN (21:40)
[2017-11-26] MEDS: Zolpidem 5 MG Tab PO PRN (21:40)
[2017-11-26] MEDS: Diazepam 5 MG Tab PO PRN (21:41)
[2017-11-27] MEDS: Sodium Chloride 0.9% 1,000 ML IV SCH ×3 (02:16→21:10)
[2017-11-27] MEDS: FAT EMUL/SOY/MCT/OLIV/FISH OIL 100 ML IV SCH (09:26)
[2017-11-27] MEDS: Fenofibrate,Micronized 67 MG Cap PO SCH (11:16)
[2017-11-27] MEDS: Venlafaxine 75 MG Cap.ER PO SCH (11:16)
[2017-11-27] MEDS: Bacitracin Oint 1 GM U/D Packet TOP SCH (11:16)
[2017-11-27] MEDS: Nystatin Topical Powder 15 GM Bottle TOP SCH ×3 (11:17→21:05)
[2017-11-27] MEDS: Metoprolol Tartrate 25 MG Tab PO SCH ×2 (11:17→21:05)
[2017-11-27] MEDS: Diazepam 5 MG Tab PO PRN ×2 (11:24→21:02)
[2017-11-27] MEDS: Morphine 15 MG Tab PO PRN ×3 (11:24→21:03)
[2017-11-27] MEDS: AA 5%/Calcium/D15W/Lytes 2,000 ML with MVI, Adult with Vitamin K 10 ML, Chromium/Copper... IV SCH ×3 (14:19)
[2017-11-27] MEDS ORDERED: Lidocaine 2% Jelly 30 ML Tube PRN (21:00)
[2017-11-27] MEDS: traZODone 50 MG Tab PO PRN (21:02)
[2017-11-27] MEDS: Zolpidem 5 MG Tab PO PRN (21:02)
[2017-11-27] MEDS: Pantoprazole 40 MG Tab.CR PO SCH (21:04)
[2017-11-27] MEDS: Mirtazapine 15 MG Tab PO SCH (21:05)
[2017-11-28] MEDS: Sodium Chloride 0.9% 1,000 ML IV SCH ×2 (00:46→21:02)
[2017-11-28] MEDS: FAT EMUL/SOY/MCT/OLIV/FISH OIL 100 ML IV SCH ×2 (01:32→19:37)
[2017-11-28] MEDS: Nystatin Topical Powder 15 GM Bottle TOP SCH ×3 (09:16→21:30)
[2017-11-28] MEDS: Metoprolol Tartrate 25 MG Tab PO SCH ×2 (10:11→21:29)
[2017-11-28] MEDS: Fenofibrate,Micronized 67 MG Cap PO SCH (10:11)
[2017-11-28] MEDS: Venlafaxine 75 MG Cap.ER PO SCH (10:11)
[2017-11-28] MEDS: Morphine 15 MG Tab PO PRN ×3 (10:14→19:05)
[2017-11-28] MEDS: Bacitracin Oint 1 GM U/D Packet TOP SCH (11:30)
[2017-11-28] MEDS ORDERED: Central Total Parenteral Nutrition Bag ONE (13:30)
[2017-11-28] MEDS: AA 5%/Calcium/D15W/Lytes 2,000 ML with MVI, Adult with Vitamin K 10 ML, Chromium/Copper... IV SCH ×3 (14:14)
[2017-11-28] MEDS: Zolpidem 5 MG Tab PO PRN (21:30)
[2017-11-28] MEDS: Pantoprazole 40 MG Tab.CR PO SCH (21:30)
[2017-11-28] MEDS: Mirtazapine 15 MG Tab PO SCH (21:30)
[2017-11-28] MEDS: Diazepam 5 MG Tab PO PRN (21:30)
[2017-11-28] MEDS: traZODone 50 MG Tab PO PRN (21:30)
[2017-11-29] MEDS: Diazepam 5 MG Tab PO PRN ×2 (11:06→20:30)
[2017-11-29] MEDS: Morphine 15 MG Tab PO PRN ×3 (11:06→19:13)
[2017-11-29] MEDS: Bacitracin Oint 1 GM U/D Packet TOP SCH (11:07)
[2017-11-29] MEDS: Fenofibrate,Micronized 67 MG Cap PO SCH (11:08)
[2017-11-29] MEDS: Venlafaxine 75 MG Cap.ER PO SCH (11:08)
[2017-11-29] MEDS: Nystatin Topical Powder 15 GM Bottle TOP SCH ×3 (11:09→20:21)
[2017-11-29] MEDS: Metoprolol Tartrate 25 MG Tab PO SCH ×2 (11:13→20:19)
[2017-11-29] MEDS: FAT EMUL/SOY/MCT/OLIV/FISH OIL 100 ML IV SCH (11:20)
[2017-11-29] MEDS: AA 5%/Calcium/D15W/Lytes 2,000 ML with MVI, Adult with Vitamin K 10 ML, Chromium/Copper... IV SCH ×3 (15:09)
[2017-11-29] MEDS: Sodium Chloride 0.9% 1,000 ML IV SCH (16:32)
[2017-11-29] MEDS: Pantoprazole 40 MG Tab.CR PO SCH (20:20)
[2017-11-29] MEDS: Mirtazapine 15 MG Tab PO SCH (20:20)
[2017-11-29] MEDS: Zolpidem 5 MG Tab PO PRN (20:29)
[2017-11-29] MEDS: traZODone 50 MG Tab PO PRN (20:30)
[2017-11-30] MEDS: FAT EMUL/SOY/MCT/OLIV/FISH OIL 100 ML IV SCH ×2 (01:55→18:08)
[2017-11-30] MEDS: Morphine 15 MG Tab PO PRN ×4 (09:34→21:45)
[2017-11-30] MEDS: Diazepam 5 MG Tab PO PRN ×3 (09:34→21:46)
[2017-11-30] MEDS: Bacitracin Oint 1 GM U/D Packet TOP SCH (09:39)
[2017-11-30] MEDS: Fenofibrate,Micronized 67 MG Cap PO SCH (09:40)
[2017-11-30] MEDS: Venlafaxine 75 MG Cap.ER PO SCH (09:40)
[2017-11-30] MEDS: Metoprolol Tartrate 25 MG Tab PO SCH ×2 (09:40→20:09)
[2017-11-30] MEDS: Nystatin Topical Powder 15 GM Bottle TOP SCH ×3 (09:44→20:11)
[2017-11-30] MEDS: AA 5%/Calcium/D15W/Lytes 2,000 ML with MVI, Adult with Vitamin K 10 ML, Chromium/Copper... IV SCH ×3 (15:42)
[2017-11-30] MEDS: Sodium Chloride 0.9% 1,000 ML IV SCH (15:47)
[2017-11-30] MEDS: Mirtazapine 15 MG Tab PO SCH (20:10)
[2017-11-30] MEDS: Pantoprazole 40 MG Tab.CR PO SCH (20:10)
[2017-11-30] MEDS: Zolpidem 5 MG Tab PO PRN (21:45)
[2017-11-30] MEDS: traZODone 50 MG Tab PO PRN (21:45)
[2017-12-01] MEDS ORDERED: Magnesium Sulfate/Water 2 GM in Premix Bag 1 BAG IV ONE (10:00)
[2017-12-01] MEDS: FAT EMUL/SOY/MCT/OLIV/FISH OIL 100 ML IV SCH (10:11)
[2017-12-01] MEDS: Venlafaxine 75 MG Cap.ER PO SCH (10:12)
[2017-12-01] MEDS: Bacitracin Oint 1 GM U/D Packet TOP SCH (10:12)
[2017-12-01] MEDS: Fenofibrate,Micronized 67 MG Cap PO SCH (10:13)
[2017-12-01] MEDS: Metoprolol Tartrate 25 MG Tab PO SCH ×2 (10:13→23:13)
[2017-12-01] MEDS: VITAMIN D3 50000 UNIT PO SCH (10:14)
[2017-12-01] MEDS: Nystatin Topical Powder 15 GM Bottle TOP SCH ×3 (10:14→23:12)
[2017-12-01] MEDS: Morphine 15 MG Tab PO PRN ×3 (10:23→20:29)
[2017-12-01] MEDS: Diazepam 5 MG Tab PO PRN ×2 (10:25→23:15)
[2017-12-01] MEDS: Sodium Chloride 0.9% 1,000 ML IV SCH ×2 (10:47→23:07)
[2017-12-01] MEDS: AA 5%/Calcium/D15W/Lytes 2,000 ML with MVI, Adult with Vitamin K 10 ML, Chromium/Copper... IV SCH ×3 (19:00)
[2017-12-01] MEDS: Mirtazapine 15 MG Tab PO SCH (23:13)
[2017-12-01] MEDS: Pantoprazole 40 MG Tab.CR PO SCH (23:14)
[2017-12-01] MEDS: traZODone 50 MG Tab PO PRN (23:15)
[2017-12-01] MEDS: Zolpidem 5 MG Tab PO PRN (23:15)
[2017-12-02] MEDS: FAT EMUL/SOY/MCT/OLIV/FISH OIL 100 ML IV SCH ×3 (01:51→18:05)
[2017-12-02] MEDS: Sodium Chloride 0.9% 1,000 ML IV SCH (06:00)
[2017-12-02] MEDS: Bacitracin Oint 1 GM U/D Packet TOP SCH (10:07)
[2017-12-02] MEDS: Venlafaxine 75 MG Cap.ER PO SCH (10:07)
[2017-12-02] MEDS: Fenofibrate,Micronized 67 MG Cap PO SCH (10:08)
[2017-12-02] MEDS: Metoprolol Tartrate 25 MG Tab PO SCH ×2 (10:08→21:34)
[2017-12-02] MEDS: Nystatin Topical Powder 15 GM Bottle TOP SCH ×3 (10:09→21:36)
[2017-12-02] MEDS: Diazepam 5 MG Tab PO PRN ×2 (10:09→21:32)
[2017-12-02] MEDS: Morphine 15 MG Tab PO PRN ×4 (10:09→22:13)
[2017-12-02] MEDS: AA 5%/Calcium/D15W/Lytes 2,000 ML with MVI, Adult with Vitamin K 10 ML, Chromium/Copper... IV SCH ×3 (14:37)
[2017-12-02] MEDS: traZODone 50 MG Tab PO PRN (21:32)
[2017-12-02] MEDS: Zolpidem 5 MG Tab PO PRN (21:32)
[2017-12-02] MEDS: Pantoprazole 40 MG Tab.CR PO SCH (21:35)
[2017-12-02] MEDS: Mirtazapine 15 MG Tab PO SCH (21:35)
[2017-12-03] MEDS ORDERED: Diazepam 5 MG Tab PO SCH
[2017-12-03] MEDS ORDERED: Morphine 15 MG Tab PO SCH
[2017-12-03] MEDS: Sodium Chloride 0.9% 1,000 ML IV SCH ×3 (07:19→21:04)
[2017-12-03] MEDS: FAT EMUL/SOY/MCT/OLIV/FISH OIL 100 ML IV SCH (10:11)
[2017-12-03] MEDS: Nystatin Topical Powder 15 GM Bottle TOP SCH ×3 (10:15→20:38)
[2017-12-03] MEDS: Fenofibrate,Micronized 67 MG Cap PO SCH (11:27)
[2017-12-03] MEDS: Bacitracin Oint 1 GM U/D Packet TOP SCH (11:27)
[2017-12-03] MEDS: Metoprolol Tartrate 25 MG Tab PO SCH ×2 (11:28→20:39)
[2017-12-03] MEDS: Venlafaxine 75 MG Cap.ER PO SCH (11:28)
[2017-12-03] MEDS: Diazepam 5 MG Tab PO PRN ×3 (11:36→20:34)
[2017-12-03] MEDS: Morphine 15 MG Tab PO PRN ×3 (11:36→20:34)
[2017-12-03] MEDS: AA 5%/Calcium/D15W/Lytes 2,000 ML with MVI, Adult with Vitamin K 10 ML, Chromium/Copper... IV SCH ×3 (15:06)
[2017-12-03] MEDS: Zolpidem 5 MG Tab PO PRN (20:34)
[2017-12-03] MEDS: traZODone 50 MG Tab PO PRN (20:34)
[2017-12-03] MEDS: Pantoprazole 40 MG Tab.CR PO SCH (20:37)
[2017-12-03] MEDS: Mirtazapine 15 MG Tab PO SCH (20:39)
[2017-12-04] MEDS ORDERED: Sodium Chloride 0.9% 500 ML IV ONE (02:30)
[2017-12-04] MEDS: FAT EMUL/SOY/MCT/OLIV/FISH OIL 100 ML IV SCH (03:17)
[2017-12-04] MEDS ORDERED: Venlafaxine 75 MG Cap.ER PO ONE (05:00)
[2017-12-04] MEDS ORDERED: Metoprolol Tartrate 25 MG Tab PO ONE (05:00)
[2017-12-04] MEDS ORDERED: Fenofibrate,Micronized 67 MG Cap PO SCH (05:00)
[2017-12-04] MEDS: Morphine 15 MG Tab PO PRN ×2 (05:16→21:55)
[2017-12-04] MEDS: Bacitracin Oint 1 GM U/D Packet TOP SCH (19:54)
[2017-12-04] MEDS: Nystatin Topical Powder 15 GM Bottle TOP SCH ×3 (19:55→21:54)
[2017-12-04] MEDS: Metoprolol Tartrate 25 MG Tab PO SCH ×2 (19:55→21:54)
[2017-12-04] MEDS: Venlafaxine 75 MG Cap.ER PO SCH (19:55)
[2017-12-04] MEDS: Fenofibrate,Micronized 67 MG Cap PO SCH (19:55)
[2017-12-04] MEDS: Mirtazapine 15 MG Tab PO SCH (21:55)
[2017-12-04] MEDS: Zolpidem 5 MG Tab PO PRN (21:55)
[2017-12-04] MEDS: traZODone 50 MG Tab PO PRN (21:55)
[2017-12-04] MEDS: Pantoprazole 40 MG Tab.CR PO SCH (21:55)
[2017-12-04] MEDS: Diazepam 5 MG Tab PO PRN (21:55)
[2017-12-04] MEDS: Sodium Chloride 0.9% 1,000 ML IV SCH (22:21)
[2017-12-04] MEDS ORDERED: AA 5%/Calcium/D15W/Lytes 2,000 ML with MVI, Adult with Vitamin K 10 ML, Chromium/Copper... IV ONE ×3 (23:00)
[2017-12-04] MEDS ORDERED: FAT EMUL/SOY/MCT/OLIV/FISH OIL 100 ML IV SCH (23:00)
[2017-12-05] MEDS: Bacitracin Oint 1 GM U/D Packet TOP SCH (08:52)
[2017-12-05] MEDS: Fenofibrate,Micronized 67 MG Cap PO SCH (11:15)
[2017-12-05] MEDS: Venlafaxine 75 MG Cap.ER PO SCH (11:16)
[2017-12-05] MEDS: Metoprolol Tartrate 25 MG Tab PO SCH ×2 (11:16→21:20)
[2017-12-05] MEDS: Morphine 15 MG Tab PO PRN ×2 (11:25→21:24)
[2017-12-05] MEDS: Diazepam 5 MG Tab PO PRN ×2 (11:28→21:24)
[2017-12-05] MEDS: Nystatin Topical Powder 15 GM Bottle TOP SCH ×3 (11:28→21:22)
[2017-12-05] MEDS: FAT EMUL/SOY/MCT/OLIV/FISH OIL 100 ML IV SCH (13:39)
[2017-12-05] MEDS: AA 5%/Calcium/D15W/Lytes 2,000 ML with MVI, Adult with Vitamin K 10 ML, Chromium/Copper... IV SCH ×3 (15:10)
[2017-12-05] MEDS: Pantoprazole 40 MG Tab.CR PO SCH (21:23)
[2017-12-05] MEDS: Mirtazapine 15 MG Tab PO SCH (21:23)
[2017-12-05] MEDS: traZODone 50 MG Tab PO PRN (21:24)
[2017-12-05] MEDS: Sodium Chloride 0.9% 1,000 ML IV SCH (21:31)
[2017-12-06] MEDS: FAT EMUL/SOY/MCT/OLIV/FISH OIL 100 ML IV SCH ×2 (06:04→22:58)
[2017-12-06] MEDS: Sodium Chloride 0.9% 1,000 ML IV SCH (09:00)
[2017-12-06] MEDS: Nystatin Topical Powder 15 GM Bottle TOP SCH ×3 (09:15→21:55)
[2017-12-06] MEDS: Bacitracin Oint 1 GM U/D Packet TOP SCH ×2 (09:15→14:11)
[2017-12-06] MEDS: Fenofibrate,Micronized 67 MG Cap PO SCH (10:29)
[2017-12-06] MEDS: Metoprolol Tartrate 25 MG Tab PO SCH ×2 (10:30→21:59)
[2017-12-06] MEDS: Venlafaxine 75 MG Cap.ER PO SCH (10:30)
[2017-12-06] MEDS: Morphine 15 MG Tab PO PRN ×2 (16:27→22:00)
[2017-12-06] MEDS: Mirtazapine 15 MG Tab PO SCH (21:59)
[2017-12-06] MEDS: Diazepam 5 MG Tab PO PRN (21:59)
[2017-12-06] MEDS: Pantoprazole 40 MG Tab.CR PO SCH (21:59)
[2017-12-06] MEDS: traZODone 50 MG Tab PO PRN (21:59)
[2017-12-06] MEDS: Zolpidem 5 MG Tab PO PRN (22:16)
[2017-12-06] MEDS: AA 5%/Calcium/D15W/Lytes 2,000 ML with MVI, Adult with Vitamin K 10 ML, Chromium/Copper... IV SCH ×3 (22:57)
[2017-12-07] MEDS: Sodium Chloride 0.9% 1,000 ML IV SCH ×3 (01:25→21:03)
[2017-12-07] MEDS: Nystatin Topical Powder 15 GM Bottle TOP SCH ×3 (09:00→20:56)
[2017-12-07] MEDS: Bacitracin Oint 1 GM U/D Packet TOP SCH (11:39)
[2017-12-07] MEDS: Fenofibrate,Micronized 67 MG Cap PO SCH (11:39)
[2017-12-07] MEDS: Metoprolol Tartrate 25 MG Tab PO SCH ×2 (11:39→20:55)
[2017-12-07] MEDS: Venlafaxine 75 MG Cap.ER PO SCH (11:40)
[2017-12-07] MEDS: Morphine 15 MG Tab PO PRN ×2 (11:42→18:23)
[2017-12-07] MEDS: FAT EMUL/SOY/MCT/OLIV/FISH OIL 100 ML IV SCH (15:25)
[2017-12-07] MEDS: AA 5%/Calcium/D15W/Lytes 2,000 ML with MVI, Adult with Vitamin K 10 ML, Chromium/Copper... IV SCH ×3 (15:25)
[2017-12-07] MEDS: Mirtazapine 15 MG Tab PO SCH (20:56)
[2017-12-07] MEDS: Pantoprazole 40 MG Tab.CR PO SCH (20:56)
[2017-12-07] MEDS: Diazepam 5 MG Tab PO PRN (20:56)
[2017-12-07] MEDS: traZODone 50 MG Tab PO PRN (20:56)
[2017-12-07] MEDS: Zolpidem 5 MG Tab PO PRN (20:56)
[2017-12-08] MEDS: FAT EMUL/SOY/MCT/OLIV/FISH OIL 100 ML IV SCH ×2 (07:50→21:34)
--- NOTE | 2017-12-08 09:24 | CR ---
Chest x-ray demonstrates 3 images of a PICC line. The third image demonstrates the PICC line at the l ow SVC level. Cardiomegaly. No focal consolidation.
[2017-12-08] MEDS: Diazepam 5 MG Tab PO PRN ×2 (11:28→21:35)
[2017-12-08] MEDS: Fenofibrate,Micronized 67 MG Cap PO SCH (11:29)
[2017-12-08] MEDS: Metoprolol Tartrate 25 MG Tab PO SCH ×2 (11:30→21:34)
[2017-12-08] MEDS: Venlafaxine 75 MG Cap.ER PO SCH (11:30)
[2017-12-08] MEDS: Bacitracin Oint 1 GM U/D Packet TOP SCH (11:32)
[2017-12-08] MEDS: Nystatin Topical Powder 15 GM Bottle TOP SCH ×3 (11:33→21:29)
[2017-12-08] MEDS: VITAMIN D3 50000 UNIT PO SCH (13:28)
[2017-12-08] MEDS: AA 5%/Calcium/D15W/Lytes 2,000 ML with MVI, Adult with Vitamin K 10 ML, Chromium/Copper... IV SCH ×3 (15:43)
[2017-12-08] MEDS: Morphine 15 MG Tab PO PRN ×2 (17:34→21:35)
[2017-12-08] MEDS: Pantoprazole 40 MG Tab.CR PO SCH (21:34)
[2017-12-08] MEDS: Mirtazapine 15 MG Tab PO SCH (21:34)
[2017-12-08] MEDS: Zolpidem 5 MG Tab PO PRN (21:34)
[2017-12-08] MEDS: Sodium Chloride 0.9% 1,000 ML IV SCH (21:35)
[2017-12-08] MEDS: traZODone 50 MG Tab PO PRN (21:35)
[2017-12-09] MEDS: Sodium Chloride 0.9% 1,000 ML IV SCH ×2 (09:10→21:13)
[2017-12-09] MEDS: Venlafaxine 75 MG Cap.ER PO SCH (10:29)
[2017-12-09] MEDS: Bacitracin Oint 1 GM U/D Packet TOP SCH (10:29)
[2017-12-09] MEDS: Fenofibrate,Micronized 67 MG Cap PO SCH (10:30)
[2017-12-09] MEDS: Nystatin Topical Powder 15 GM Bottle TOP SCH ×3 (10:31→21:00)
[2017-12-09] MEDS: Metoprolol Tartrate 25 MG Tab PO SCH ×2 (10:32→20:59)
[2017-12-09] MEDS: Diazepam 5 MG Tab PO PRN ×2 (11:56→21:01)
[2017-12-09] MEDS: Morphine 15 MG Tab PO PRN ×2 (11:57→21:05)
[2017-12-09] MEDS: FAT EMUL/SOY/MCT/OLIV/FISH OIL 100 ML IV SCH (14:08)
[2017-12-09] MEDS: AA 5%/Calcium/D15W/Lytes 2,000 ML with MVI, Adult with Vitamin K 10 ML, Chromium/Copper... IV SCH ×3 (16:04)
[2017-12-09] MEDS: Pantoprazole 40 MG Tab.CR PO SCH (21:01)
[2017-12-09] MEDS: Mirtazapine 15 MG Tab PO SCH (21:01)
[2017-12-09] MEDS: Zolpidem 5 MG Tab PO PRN (21:02)
[2017-12-09] MEDS: traZODone 50 MG Tab PO PRN (21:02)
[2017-12-10] MEDS: FAT EMUL/SOY/MCT/OLIV/FISH OIL 100 ML IV SCH ×4 (05:22→23:53)
[2017-12-10] MEDS: Sodium Chloride 0.9% 1,000 ML IV SCH ×3 (05:24→19:58)
[2017-12-10] MEDS: Venlafaxine 75 MG Cap.ER PO SCH (09:17)
[2017-12-10] MEDS: Bacitracin Oint 1 GM U/D Packet TOP SCH (09:17)
[2017-12-10] MEDS: Fenofibrate,Micronized 67 MG Cap PO SCH (09:18)
[2017-12-10] MEDS: Nystatin Topical Powder 15 GM Bottle TOP SCH ×3 (09:21→21:42)
[2017-12-10] MEDS: Metoprolol Tartrate 25 MG Tab PO SCH ×2 (09:21→21:42)
[2017-12-10] MEDS: Diazepam 5 MG Tab PO PRN ×2 (15:08→21:43)
[2017-12-10] MEDS: Morphine 15 MG Tab PO PRN ×2 (15:08→21:43)
[2017-12-10] MEDS: AA 5%/Calcium/D15W/Lytes 2,000 ML with MVI, Adult with Vitamin K 10 ML, Chromium/Copper... IV SCH ×3 (16:31)
[2017-12-10] MEDS: Mirtazapine 15 MG Tab PO SCH (21:43)
[2017-12-10] MEDS: traZODone 50 MG Tab PO PRN (21:43)
[2017-12-10] MEDS: Zolpidem 5 MG Tab PO PRN (21:43)
[2017-12-10] MEDS: Pantoprazole 40 MG Tab.CR PO SCH (21:43)
[2017-12-11] MEDS: Sodium Chloride 0.9% 1,000 ML IV SCH ×2 (08:05→09:26)
[2017-12-11] MEDS: Fenofibrate,Micronized 67 MG Cap PO SCH (10:43)
[2017-12-11] MEDS: Venlafaxine 75 MG Cap.ER PO SCH (10:43)
[2017-12-11] MEDS: Metoprolol Tartrate 25 MG Tab PO SCH ×2 (10:44→20:41)
[2017-12-11] MEDS: Bacitracin Oint 1 GM U/D Packet TOP SCH (13:43)
[2017-12-11] MEDS: Nystatin Topical Powder 15 GM Bottle TOP SCH ×3 (13:43→20:43)
[2017-12-11] MEDS: FAT EMUL/SOY/MCT/OLIV/FISH OIL 100 ML IV SCH (15:27)
[2017-12-11] MEDS: AA 5%/Calcium/D15W/Lytes 2,000 ML with MVI, Adult with Vitamin K 10 ML, Chromium/Copper... IV SCH ×3 (15:27)
--- NOTE | 2017-12-11 16:14 | PN ---
DATE OF SERVICE: 12/11/2017 The patient is doing very well with her new wound VAC setup, has not had any leaks and we have decreased the pressure, negative vaccum to 150 mmHg. The wound VAC itself is separate from the fistulas which essentially have sealed. She does have an ostomy, however, this is physically separate from the wound VAC location, which is doing quite well to assist with granulation tissue. Also, of note, the wound VAC is not in any direct contact with any bowel. The ostomy output continues to drain in the ostomy bag without difficulty or complication. It does appear that the patient is amenable for this plan and is for discharge once wound VAC gets finalized and approved. Jhonatan Keyes MD /[id number]
[2017-12-11] MEDS: Morphine 15 MG Tab PO PRN ×2 (17:04→20:52)
[2017-12-11] MEDS: Diazepam 5 MG Tab PO PRN ×2 (17:07→20:53)
[2017-12-11] MEDS: Pantoprazole 40 MG Tab.CR PO SCH (20:42)
[2017-12-11] MEDS: Mirtazapine 15 MG Tab PO SCH (20:43)
[2017-12-11] MEDS: traZODone 50 MG Tab PO PRN (20:51)
[2017-12-11] MEDS: Zolpidem 5 MG Tab PO PRN (20:52)
[2017-12-12] MEDS: Sodium Chloride 0.9% 1,000 ML IV SCH ×2 (01:11→09:18)
[2017-12-12] MEDS ORDERED: Potassium Chloride 20 MEQ in Premix Bag 1 BAG IV ONE (06:12)
[2017-12-12] MEDS: FAT EMUL/SOY/MCT/OLIV/FISH OIL 100 ML IV SCH (07:43)
[2017-12-12] MEDS ORDERED: Potassium Chloride 40 MEQ in Premix Bag 1 BAG IV ONE (09:40)
[2017-12-12 11:46] VITALS: BP 111/73
--- NOTE | 2017-12-12 12:12 | PN ---
DATE OF SERVICE: 12/12/2017 The patient is doing very well. Wound VAC is functioning well. Ostomy is functioning well. The patient is essentially waiting to be discharged. We will update once we hear back from Medicaid. Jhonatan Keyes MD /[id number]
[2017-12-12] MEDS: Bacitracin Oint 1 GM U/D Packet TOP SCH (12:19)
[2017-12-12] MEDS: Nystatin Topical Powder 15 GM Bottle TOP SCH ×2 (12:20→13:38)
[2017-12-12] MEDS: Venlafaxine 75 MG Cap.ER PO SCH (12:24)
[2017-12-12] MEDS: Metoprolol Tartrate 25 MG Tab PO SCH (12:24)
[2017-12-12] MEDS: Fenofibrate,Micronized 67 MG Cap PO SCH (12:24)
[2017-12-12] MEDS: Morphine 15 MG Tab PO PRN (12:25)
[2017-12-12] MEDS: Diazepam 5 MG Tab PO PRN (12:26)
--- NOTE | 2017-12-25 08:23 | DISCH ---
Discharged from swing bed. SUMMARY OF HOSPITAL COURSE: Pleasant 62-year-old female who was having ongoing issues with abdominal enterocutaneous fistulas requiring TPN and swing bed status. The patient did well from her swing bed. On discharge, her wound is controlled, her TPN is functioning, she has no nausea, vomiting, or shortness of breath, and she is tolerating a limited diet as prescribed. FOLLOWUP: Follow up with Surgery in 7 to 14 days. DISCHARGE MEDICATIONS: Same as admission. Please see MAR for further details. ACTIVITY: As tolerated. COMPLICATIONS: None. GENERAL DISPOSITION: The patient is doing quite well despite her ongoing issues. She will have continued issues with respect to her abdominal fistulas. She is to follow up also with [facility] in approximately 2-3 weeks.
== END 2017-12-12 14:45 | disposition home health service (06) | DRG 395 ==
LOC: JP.MS 11:45
PROVIDERS: ADMIT Surgery; ATTEND Surgery
PROC: 02HV33Z Insertion of Infusion Device into Superior Vena Cava, Percutaneous Approach (ICD-10-PCS; principal; 2017-12-07)
PROC: B548ZZA Ultrasonography of Superior Vena Cava, Guidance (ICD-10-PCS; 2017-12-07)
DX: K63.2 Fistula of intestine (principal); Z59.8 Other problems related to housing and economic circumstances; Z93.3 Colostomy status
CPT/HCPCS: 36415; 36569; 71045; 71045-26; 80048; 80053; 80076; 83735; 84100; 84478; 85027; 97110-GP; 97164-GP; 97535-GP; 97605; A9270-GY; J1642; J2270; J2405; J3475; J3480; J7040

== ENCOUNTER 2017-12-14 14:41 | Emergency (ER) | payer MEDICARE, MEDICAID ==
[2017-12-14] MEDS ORDERED: traMADol 50 MG Tab PO ONE (15:41)
[2017-12-14] MEDS ORDERED: Sodium Chloride 0.9% 1,000 ML IV SCH (15:45)
--- NOTE | 2017-12-14 17:06 | EDM.PDOC ---
ED HPI GENERAL MEDICAL PROBLEM - General Chief Complaint: Gastrointestinal Problem Stated Complaint: MEDICAL VIA AMB Time Seen by Provider: 12/14/17 15:38 Source of Information: Reports: Patient History Limitations: Reports: No Limitations - History of Present Illness INITIAL COMMENTS - FREE TEXT/NARRATIVE: This lady comes in with a complaint of weakness. She was just discharged from the hospital day before yesterday after an extended stay for her complex GI problems. She has an ostomy bag that is chronically leaking and she has a wound VAC in place. She complains about the ostomy bag leaking but that's a chronic problem and she at least says that the wound VAC seems to be working okay. She gets TPN at home as well as some extra IV normal saline daily. She's attended by home health care as well as some care for for her other needs. Dr. Keyes follows her closely. She denies any fever chills nausea vomiting or diarrhea. There is no cough or shortness of breath and she denies any kind of abdominal pain. She denies any urinary tract symptoms Upper Back Pain Score (Numeric/FACES): 6 - Related Data Allergies Allergy/AdvReac Type Severity Reaction Status Date / Time shellfish derived Allergy Severe Anaphylactic Verified 12/14/17 14:53 Shock oxycodone HCl Allergy Hives Verified 12/14/17 14:53 [From OxyContin] Home Meds: Home Meds Omeprazole 40 mg PO BEDTIME 10/28/14 [History] traZODone 100 mg PO BEDTIME PRN 07/03/16 [History] Zolpidem [Ambien] 5 mg PO BEDTIME PRN 05/20/17 [History] Albuterol/Ipratropium [DuoNeb 3.0-0.5 MG/3 ML] 3 ml NEB Q4H PRN 07/16/17 [ History] Diazepam [Valium] 1 - 1.5 tab PO TID PRN 07/16/17 [History] Acetaminophen [Tylenol] 650 mg RECTAL Q6H PRN 11/04/17 [History] Cholecalciferol (Vitamin D3) [Vitamin D] 50,000 unit PO WEEKLY 11/04/17 [History ] Fenofibrate Nanocrystallized [Fenofibrate] 145 mg PO DAILY 11/04/17 [History] Metoprolol Tartrate [Lopressor] 25 mg PO DAILY 11/04/17 [History] Mirtazapine [Remeron] 15 mg PO BEDTIME 11/04/17 [History] Venlafaxine [Effexor XR] 300 mg PO DAILY 11/04/17 [History] traMADol [Ultram] 25 mg PO Q6H PRN 11/04/17 [History] Past Medical History HEENT History: Reports: Impaired Vision Other HEENT History: wears glasses Cardiovascular History: Reports: Blood Clots/VTE/DVT, High Cholesterol, Hypertension, [place], Prior Cardiac Arrest, SOB on Exertion, Syncope Respiratory History: Reports: COPD, PE, Pneumonia, Recurrent, SOB Gastrointestinal History: Reports: Chronic Diarrhea, Diverticulosis, GERD, Other (See Below) Other Gastrointestinal History: Diverticulitis, ischemic bowel; dysphagia. fistula of colon Genitourinary History: Reports: None [employer] History: Reports: Dysfunctional Uterine Bleeding, Other OB/BYN History: hysterectomy and c-sections X3 Musculoskeletal History: Reports: Back Pain, Chronic, RA Other Musculoskeletal History: DJD Neurological History: Reports: Concussion, CVA, Migraines, Vertigo Psychiatric History: Reports: Anxiety, Depression Endocrine/Metabolic History: Reports: Obesity/BMI 30+, Vitamin D Deficiency Hematologic History: Reports: Anticoagulation Therapy, Other (See Below) Other Hematologic History: parasitic toxoplasmosis Immunologic History: Reports: Immunosuppression Other Immunologic History: " Not very good" Immune system Dermatologic History: Reports: Eczema, Seborrheic Dermatitis Other Dermatologic History: tattoos on both arms - Infectious Disease History Infectious Disease History: Reports: Chicken Pox, Measles, Mumps Other Infectious Disease History: unable to obtain - Past Surgical History Head Surgeries/Procedures: Reports: None HEENT Surgical History: Reports: Naso-Sinus Surgery Cardiovascular Surgical History: Reports: Coronary Artery Stent, Percutaneous Transluminal Angioplasty GI Surgical History: Reports: Appendectomy, Cholecystectomy, Colon, Colonoscopy , Colostomy, EGD, Hernia, Abdominal, Other (See Below) Other GI Surgeries/Procedures: Take down of colostomy Female Surgical History: Reports: Breast Biopsy, Section, Hysterectomy, Salpingo-Oophorectomy Musculoskeletal Surgical History: Reports: Shoulder Replacement Dermatological Surgical History: Reports: Skin Graft Social & Family History - Family History Family Medical History: Noncontributory HEENT: Reports: None Cardiac: Reports: Heart Failure GI: Reports: Irritable Bowel Syndrome Neurological: Reports: CVA Endocrine/Metabolic: Reports: Hypothyroidism Dermatologic: Reports: Eczema - Tobacco Use Smoking Status *Q: Former Smoker Years of Tobacco use: 25 Packs/Tins Daily: 0.2 Used Tobacco, but Quit: Yes Month/Year Tobacco Last Used: 08/2016 Second Hand Smoke Exposure: No - Caffeine Use Caffeine Use: Reports: None Other Caffeine Use: none since end of JUN 2017 - Alcohol Use Days Per Week of Alcohol Use: 0 - Recreational Drug Use Recreational Drug Use: No Drug Use in Last 12 Months: No ED ROS GENERAL - Review of Systems Review Of Systems: ROS reveals no pertinent complaints other than HPI. ED EXAM, GI/ABD - Physical Exam Exam: See Below Exam Limited By: No Limitations General Appearance: Alert, No Apparent Distress Eyes: Bilateral: Normal Appearance Respiratory/Chest: Lungs Clear Cardiovascular: Regular Rate, Rhythm GI/Abdominal Exam: Other (There is an ostomy bag in place in the lower midline of the abdomen as well as a wound VAC drainage to that inserts in the abdominal wall in the midline at about the 7 o'clock position from the ostomy bag. The skin of the abdomen is a bright red color and looks like it is probably some chemical scalding. The abdomen is nontender however. Ostomy is draining dark yellow fluid.) Extremities: Normal Inspection Neurological: Alert, Oriented Psychiatric: Normal Affect Skin Exam: Warm, Dry Course - Vital Signs Last Recorded V/S: Last Vital Signs Temp 36.5 C 12/14/17 14:52 Pulse 87 12/14/17 14:52 Resp 16 12/14/17 14:52 BP 130/82 12/14/17 14:52 Pulse Ox 97 12/14/17 14:52 - Orders/Labs/Meds Orders: Active Orders 24 hr Category Date Time Status Chest 1V Frontal [CR] Urgent Exams 12/14/17 16:45 Taken CULTURE URINE [RM] Stat Lab 12/14/17 17:07 Ordered UA W/MICROSCOPIC [URIN] Urgent Lab 12/14/17 16:51 Ordered Sodium Chloride 0.9% [Normal Saline] 1,000 ml Med 12/14/17 15:45 Active IV ASDIRECTED Medication Orders Sodium Chloride (Normal Saline) 1,000 mls @ 999 mls/hr IV ASDIRECTED [facility] Last Admin: 12/14/17 15:48 Dose: 999 mls/hr Labs: Laboratory Tests 12/14/17 12/14/17 12/14/17 Range/Units 15:38 15:38 16:51 WBC 22.6 H (4.5-11.0) K/uL RBC 5.00 (3.30-5.50) M/uL Hgb 12.5 D (12.0-15.0) g/dL Hct 39.6 (36.0-48.0) % MCV 79 L (80-98) fL MCH 25 L (27-31) pg MCHC 32 (32-36) % Plt Count 887 H (150-400) K/uL Neut % (Auto) 84 H (36-66) % Lymph % (Auto) 11 L (24-44) % Josephine % (Auto) 5 (2-6) % Eos % (Auto) 1 L (2-4) % Baso % (Auto) 0 (0-1) % Sodium 138 L (140-148) mmol/L Potassium 3.4 L (3.6-5.2) mmol/L Chloride 96 L (100-108) mmol/L Carbon Dioxide 27 (21-32) mmol/L Anion Gap 18.4 H (5.0-14.0) mmol/L BUN 36 H D (7-18) mg/dL Creatinine 1.5 H (0.6-1.0) mg/dL Est Cr Clr Drug Dosing 35.44 mL/min Estimated GFR (MDRD) 35 L (>60) Glucose 141 H (74-106) mg/dL Calcium 9.7 (8.5-10.1) mg/dL Total Bilirubin 0.5 D (0.2-1.0) mg/dL AST 75 H (15-37) U/L ALT 67 (12-78) U/L Alkaline Phosphatase 545 H (46-116) U/L Total Protein 9.0 H (6.4-8.2) g/dL Albumin 3.0 L (3.4-5.0) g/dL Globulin 6.0 H (2.3-3.5) g/dL Albumin/Globulin Ratio 0.5 L (1.2-2.2) Urine Color Yellow Urine Appearance Slightly cloudy Urine pH 5.0 (4.5-8.0) Ur Specific [place] 1.025 (1.008-1.030) Urine Protein Negative (NEGATIVE) mg/dL Urine Glucose (UA) Normal (NEGATIVE) mg/dL Urine Ketones Negative (NEGATIVE) mg/dL Urine Occult Blood Negative (NEGATIVE) Urine Nitrite Negative (NEGATIVE) Urine Bilirubin Negative (NEGATIVE) Urine Urobilinogen Normal (NORMAL) mg/dL Ur Leukocyte Esterase Small (NEGATIVE) Urine RBC 0-5 (0-5) Urine WBC 20-30 H (0-5) Ur Epithelial Cells Few Amorphous Sediment Not seen Urine Bacteria Many Urine Mucus Few Meds: Medications Generic Name Dose Route Start Last Admin Trade Name Freq PRN Reason Stop Dose Admin Sodium Chloride 1,000 mls @ 999 mls/hr 12/14/17 15:45 12/14/17 15:48 Normal Saline IV 999 mls/hr ASDIRECTED [facility] Administration Discontinued Medications Generic Name Dose Route Start Last Admin Trade Name Freq PRN Reason Stop Dose Admin Tramadol HCl 50 mg 12/14/17 15:41 12/14/17 15:51 Ultram PO 12/14/17 15:42 50 mg ONETIME ONE Administration - Re-Assessments/Exams Free Text/Narrative Re-Assessment/Exam: 12/14/17 17:21 The patient felt like she was weak and felt like she might be dehydrated. We proceeded to give her a liter of normal saline and her labs did come back indicating that there is probably some prerenal azotemia. I spoke with Dr. Keyes and he agreed with the management. He will make arrangements to increase her water intake tomorrow. He plans to see her day after tomorrow. Patient is agreeable to be discharged home. Also noted that there is 20-30 WBCs in her urine and that is been sent for culture. Antibiotics did not appear to be appropriate at this time. She's aware that will need to be followed up. Departure - Departure Time of Disposition: 17:04 Disposition: Home, W Home Health Agency 06 Condition: Fair Clinical Impression: Dehydration, On total parenteral nutrition (TPN) - Discharge Information Instructions: Dehydration, Adult, [id number] Referrals: Yue Palacios MD [Primary Care Provider] - Forms: ED Department Discharge Additional Instructions: Dr. Keyes will make arrangements for your fluids to be increased. It seems that you got a little bit dehydrated. Dr. Keyes said he plans to see you on Friday. If that was not your understanding you should get in touch with his office first thing Friday. The home health care people will see you tomorrow as usual. Your urine test showed that you might have a urinary tract infection. The urine was sent for a culture and it should be ready tomorrow or the next day. Someone will need to check the results of the culture. I have not ordered any antibiotics. - My Orders Last 24 Hours: My Active Orders 12/14/17 15:45 Sodium Chloride 0.9% [Normal Saline] 1,000 ml IV ASDIRECTED 12/14/17 16:45 Chest 1V Frontal [CR] Urgent 12/14/17 16:51 UA W/MICROSCOPIC [URIN] Urgent 12/14/17 17:07 CULTURE URINE [RM] Stat - Assessment/Plan Last 24 Hours: My Active Orders 12/14/17 15:45 Sodium Chloride 0.9% [Normal Saline] 1,000 ml IV ASDIRECTED 12/14/17 16:45 Chest 1V Frontal [CR] Urgent 12/14/17 16:51 UA W/MICROSCOPIC [URIN] Urgent 12/14/17 17:07 CULTURE URINE [RM] Stat
[2017-12-14 17:22] VITALS: BP 130/75
--- NOTE | 2017-12-15 10:20 | CR ---
Chest 1V Frontal HISTORY: weakness, leukocytosis COMPARISON: 12/07/2017 FINDINGS: Tip of the patient's right-sided PICC line overlies the mid superior vena cava. There is no pneumotho rax, mediastinal widening, or other complication. Lungs appear clear and normally aerated. Cardiomedi astinal silhouette is within normal limits. No vascular redistribution or pleural fluid can be seen. Reverse left shoulder arthroplasty is noted. IMPRESSION: No acute chest abnormality or significant interval change is identified. Tip of the right-sided PICC line overlies the mid SVC.
== END 2017-12-14 17:22 | disposition home health service (06) ==
LOC: JP.ED 14:41
DX: E86.0 Dehydration (principal); Z76.0 Encounter for issue of repeat prescription; I10 Essential (primary) hypertension; I25.2 Old myocardial infarction; Z91.013 Allergy to seafood; Z88.5 Allergy status to narcotic agent; Z79.899 Other long term (current) drug therapy; E78.00 Pure hypercholesterolemia, unspecified; Z87.891 Personal history of nicotine dependence
CPT/HCPCS: 36415; 71045; 80053; 81001; 85025; 87086; 96360; 99284; A9270; J7040; 87088; 87186

== ENCOUNTER 2017-12-16 12:35 | Inpatient (IN) | payer MEDICARE, MEDICAID ==
[2017-12-16] MEDS ORDERED: Sodium Chloride 0.9% 250 ML IV SCH (12:45)
[2017-12-16] MEDS ORDERED: Potassium Chloride 40 MEQ in Premix Bag 1 BAG IV ONE (12:45)
[2017-12-16] MEDS ORDERED: Morphine 2 MG/ML Syringe IVPUSH ONE (12:50)
[2017-12-16] MEDS: cefTRIAXone 1 GM in Sodium Chloride 0.9% 50 ML IV SCH (15:03)
[2017-12-16] MEDS: Sodium Chloride 0.9% 1,000 ML IV SCH ×2 (15:48→21:55)
[2017-12-16] MEDS: Morphine 2 MG/ML Syringe IVPUSH SCH ×3 (15:56→19:30)
[2017-12-16] MEDS ORDERED: Iopamidol 612 MG/ML 100 ML Bottle IV SCH (16:00)
[2017-12-16] MEDS ORDERED: Sodium Chloride 0.9% 100 ML IV SCH (16:00)
[2017-12-16] MEDS ORDERED: Ondansetron 4 MG/2 ML SDV IVPUSH PRN (18:41)
[2017-12-16] MEDS ORDERED: Promethazine 25 MG/ML SDV IV PRN (18:43)
[2017-12-16] MEDS ORDERED: Scopolamine 1.5 MG Transdermal Patch TOP PRN (18:44)
[2017-12-16] MEDS ORDERED: diphenhydrAMINE 50 MG/ML SDV IVPUSH PRN (18:45)
[2017-12-16] MEDS ORDERED: Nicotine 14 MG/24 Hr Patch TRDERM PRN (18:46)
[2017-12-16] MEDS ORDERED: diphenhydrAMINE 25 MG Cap PO PRN (18:46)
[2017-12-16] MEDS ORDERED: Piperacillin/Tazobactam 3.375 GM in Sodium Chloride 0.9% 50 ML IV SCH ×2 (21:00→21:30)
[2017-12-16] MEDS ORDERED: Piperacillin/Tazobactam 2.25 GM in Sodium Chloride 0.9% 50 ML IV SCH (21:30)
[2017-12-16] MEDS: Pantoprazole 40 MG Tab.CR PO SCH (21:43)
[2017-12-16] MEDS: Zolpidem 5 MG Tab PO PRN (21:43)
[2017-12-16] MEDS: Mirtazapine 15 MG Tab PO SCH (21:43)
[2017-12-16] MEDS: Piperacillin/Tazobactam 2.25 GM in Sodium Chloride 0.9% 50 ML IV SCH (21:44)
[2017-12-16] MEDS: traZODone 50 MG Tab PO PRN (21:44)
[2017-12-17] MEDS: Piperacillin/Tazobactam 2.25 GM in Sodium Chloride 0.9% 50 ML IV SCH ×4 (02:32→22:06)
[2017-12-17] MEDS: Sodium Chloride 0.9% 1,000 ML IV SCH ×2 (07:05→15:34)
[2017-12-17] MEDS ORDERED: Piperacillin/Tazobactam 2.25 GM in Sodium Chloride 0.9% 50 ML IV SCH (07:45)
[2017-12-17] MEDS ORDERED: Potassium Chloride 40 MEQ in Premix Bag 1 BAG IV ONE (08:00)
[2017-12-17] MEDS ORDERED: Dimethicone 20%/Zinc Oxide 25% 56 GM Spray Bottle TOP PRN (08:23)
[2017-12-17] MEDS: Fenofibrate,Micronized 67 MG Cap PO SCH (09:18)
[2017-12-17] MEDS: Venlafaxine 75 MG Cap.ER PO SCH (09:18)
[2017-12-17] MEDS: Metoprolol Tartrate 25 MG Tab PO SCH (09:18)
[2017-12-17] MEDS: Morphine 2 MG/ML Syringe IVPUSH PRN ×4 (09:27→22:05)
--- NOTE | 2017-12-17 10:46 | PN ---
DATE OF SERVICE: 12/17/2017 SUBJECTIVE: The patient remains similar today. No nausea or vomiting. She has kept the sepsis protocol in the night. OBJECTIVE: VITAL SIGNS: Stable. CARDIOVASCULAR: Regular rhythm and rate. RESPIRATORY: Clear to auscultation bilaterally. ABDOMEN: Complex wound dressing looks to be failing again. ASSESSMENT AND PLAN: 1. Multiple medical issues with respect to enterocutaneous fistula and bladder infection. Plan: The patient will be transferred to the Intensive Care Unit today. She presents a scope of need greater than the floor can handle at this time. She is going to need Intensive Care Services with respect to this complex abdominal wound. In addition, she does have a bladder infection and still ongoing concern for sepsis. Therefore, she needs intense monitoring to watch for developing sepsis. At this time, continue antibiotics, which include Zosyn 3.375 g. 2. Hypokalemia. The patient has critical lab values, also requiring Intensive Care Unit monitoring. Her potassium remains refractory to IV bolusing; therefore, we will keep her on cardiac monitoring in the Intensive Care Unit. We will also add a second bolus of potassium chloride and adjust her TPN. 3. Nutrition. Continue the TPN at this time, except for additional potassium to be adjusted by Pharmacy. 4. Anemia. The patient has dropped her hemoglobin 2 points in the last approximately 20 hours. We will continue to monitor this, along with blood pressure and vital signs. Recheck labs in a.m. 5. Fluid, electrolyte, nutrition. The patient needs more accurate fluids and electrolytes, as she is hypovolemic plus dehydrated. We will rehydrate today again with intermittent fluid boluses in the Intensive Care Unit. Jhonatan Keyes MD /[id number]
--- NOTE | 2017-12-17 10:55 | HP ---
REASON FOR ADMISSION: Concern for sepsis and urinary tract infection. HISTORY OF PRESENT ILLNESS: This is a pleasant 62-year-old female with a very complex abdominal wound history. This essentially started approximately 2 years ago at another facility, where she underwent a surgery for diverticulitis and ended up with an ostomy open wound. She eventually had her ostomy taken down, developed multiple enterocutaneous fistulas, was treated at [facility], and underwent swing bed status here in [place]. At present, the patient has been released from her home health care agency due to the complexity of the wounds. The patient is currently on TPN. The patient has back and flank pain, concerning for pyelonephritis. PAST MEDICAL HISTORY: As above. PAST SURGICAL HISTORY: As above. Of note, please see previous admissions for further details with respect to her multiple abdominal surgeries. SOCIAL HISTORY: She does not smoke. FAMILY HISTORY: Noncontributory. PHYSICAL EXAMINATION: GENERAL: The patient looks tired and lethargic. HEENT: Pupils are equal. NECK: Supple. CARDIOVASCULAR: Regular rhythm and rate. RESPIRATORY: Lungs are clear to auscultation bilaterally. ABDOMEN: Open wound with enterocutaneous fistula. Significant excoriation of the skin due to bile leakage around dressing. Of note, no wound VAC or appliances are on the abdomen when the patient presented today. EXTREMITIES: Full range of motion. NEUROLOGICAL: Oriented x3. PSYCH: No gross depression. DIAGNOSTIC STUDIES: Imaging: Pending. Labs: Positive for UTI. PLAN: 1. We will admit the patient at this time. 2. Bladder infection. There is concern for urinary tract infection and, in addition, possible sepsis and pyelonephritis. We will perform a CT scan to evaluate this. 3. Wound. Nursing staff, under guidance of myself, will work on getting a more formidable and solvent solution for the abdominal fistula control. 4. We will re-evaluate in the morning. Jhonatan Keyes MD /[id number]
[2017-12-17] MEDS ORDERED: Potassium Chloride 20 MEQ in Premix Bag 1 BAG IV ONE (12:00)
[2017-12-17] MEDS: 1: AA 5%/Calcium/D15W/Lytes 1,000 ML with MVI, Adult with Vitamin K 10 ML, Chromium/Copp IV SCH ×3 (13:07)
[2017-12-17] MEDS: FAT EMUL/SOY/MCT/OLIV/FISH OIL 100 ML IV SCH (13:08)
[2017-12-17] MEDS: cefTRIAXone 1 GM in Sodium Chloride 0.9% 50 ML IV SCH (16:28)
[2017-12-17] MEDS: traZODone 50 MG Tab PO PRN (22:04)
[2017-12-17] MEDS: Zolpidem 5 MG Tab PO PRN (22:05)
[2017-12-17] MEDS: Mirtazapine 15 MG Tab PO SCH (22:05)
[2017-12-17] MEDS: Pantoprazole 40 MG Tab.CR PO SCH (22:05)
[2017-12-18] MEDS: Sodium Chloride 0.9% 1,000 ML IV SCH ×3 (01:08→20:02)
[2017-12-18] MEDS: Piperacillin/Tazobactam 2.25 GM in Sodium Chloride 0.9% 50 ML IV SCH ×2 (03:44→10:43)
[2017-12-18] MEDS: FAT EMUL/SOY/MCT/OLIV/FISH OIL 100 ML IV SCH ×2 (03:44→19:15)
[2017-12-18] MEDS: 1: AA 5%/Calcium/D15W/Lytes 1,000 ML with MVI, Adult with Vitamin K 10 ML, Chromium/Copp IV SCH ×6 (05:02→21:23)
[2017-12-18] MEDS: Venlafaxine 75 MG Cap.ER PO SCH (09:12)
[2017-12-18] MEDS: Fenofibrate,Micronized 67 MG Cap PO SCH (09:12)
[2017-12-18] MEDS: Metoprolol Tartrate 25 MG Tab PO SCH (09:15)
[2017-12-18] MEDS: Morphine 2 MG/ML Syringe IVPUSH PRN ×3 (09:18→19:07)
[2017-12-18] MEDS: cefTRIAXone 1 GM in Sodium Chloride 0.9% 50 ML IV SCH (15:02)
[2017-12-18] MEDS: Piperacillin/Tazobactam/Dext 3.375 GM in Premix Bag 1 BAG IV SCH ×2 (17:05→21:24)
--- NOTE | 2017-12-18 19:26 | PN ---
DATE OF SERVICE: 12/18/2017 SUBJECTIVE: The patient continues to improve. Pain is controlled. No nausea, vomiting, shortness of breath, or chest pain. OBJECTIVE: VITAL SIGNS: Stable. ABDOMEN: Dressing is intact. ASSESSMENT: Multiple enterocutaneous fistulas. PLAN: The patient continues to improve. I believe we have her urinary tract infection under significantly improved control. Her hypokalemia is also improved. The patient is being evaluated for long-term nursing facility. We will keep her in her current status at this time until she shows further improvement. Jhonatan Keyes MD /[id number]
[2017-12-18] MEDS: Zolpidem 5 MG Tab PO PRN (21:23)
[2017-12-18] MEDS: Pantoprazole 40 MG Tab.CR PO SCH (21:23)
[2017-12-18] MEDS: traZODone 50 MG Tab PO PRN (21:23)
[2017-12-18] MEDS: Mirtazapine 15 MG Tab PO SCH (21:23)
[2017-12-19] MEDS: Piperacillin/Tazobactam/Dext 3.375 GM in Premix Bag 1 BAG IV SCH ×4 (03:23→22:42)
[2017-12-19] MEDS: Sodium Chloride 0.9% 1,000 ML IV SCH ×4 (03:26→22:40)
[2017-12-19] MEDS ORDERED: Sodium Chloride 0.9% 1,000 ML IV ONE ×2 (06:02→07:49)
[2017-12-19] MEDS: Venlafaxine 75 MG Cap.ER PO SCH (09:57)
[2017-12-19] MEDS: Fenofibrate,Micronized 67 MG Cap PO SCH (09:57)
[2017-12-19] MEDS: Metoprolol Tartrate 25 MG Tab PO SCH (09:58)
[2017-12-19] MEDS: Morphine 2 MG/ML Syringe IVPUSH PRN ×4 (10:00→21:59)
[2017-12-19] MEDS: FAT EMUL/SOY/MCT/OLIV/FISH OIL 100 ML IV SCH (11:28)
[2017-12-19] MEDS: 1: AA 5%/Calcium/D15W/Lytes 1,000 ML with MVI, Adult with Vitamin K 10 ML, Chromium/Copp IV SCH ×3 (14:15)
[2017-12-19] MEDS: cefTRIAXone 1 GM in Sodium Chloride 0.9% 50 ML IV SCH (15:06)
[2017-12-19] MEDS: Mirtazapine 15 MG Tab PO SCH (22:00)
[2017-12-19] MEDS: Pantoprazole 40 MG Tab.CR PO SCH (22:00)
[2017-12-19] MEDS: Zolpidem 5 MG Tab PO PRN (22:00)
[2017-12-19] MEDS: traZODone 50 MG Tab PO PRN (22:00)
[2017-12-20] MEDS: Piperacillin/Tazobactam/Dext 3.375 GM in Premix Bag 1 BAG IV SCH ×2 (03:13→09:27)
[2017-12-20] MEDS: FAT EMUL/SOY/MCT/OLIV/FISH OIL 100 ML IV SCH (04:22)
[2017-12-20] MEDS: Sodium Chloride 0.9% 1,000 ML IV SCH (07:47)
[2017-12-20] MEDS: 1: AA 5%/Calcium/D15W/Lytes 1,000 ML with MVI, Adult with Vitamin K 10 ML, Chromium/Copp IV SCH ×3 (07:47)
[2017-12-20 08:43] VITALS: BP 108/59
[2017-12-20] MEDS: Venlafaxine 75 MG Cap.ER PO SCH (09:25)
[2017-12-20] MEDS: Morphine 2 MG/ML Syringe IVPUSH PRN (09:25)
[2017-12-20] MEDS: Fenofibrate,Micronized 67 MG Cap PO SCH (09:25)
[2017-12-20] MEDS: Metoprolol Tartrate 25 MG Tab PO SCH (09:31)
--- NOTE | 2017-12-22 07:55 | DISCH ---
DISCHARGE DIAGNOSIS: Enterocutaneous fistula. HOSPITAL COURSE: This is a pleasant 62-year-old female who has had multiple surgeries and complications, which essentially started with a diverticulitis problem approximately one and a half years ago. The patient has undergone multiple surgeries here, [facility], [facility], and [facility]. At present, she is doing best she has in several years. She is down to one fistula. The wound control system is functioning well. She did recently have a urinary tract infection, but that has responded well to antibiotics. The patient is also on TPN, which is stable. Her hypokalemia has been corrected. Followup per [facility], which she is being transferred to that facility in [place]. DISCHARGE MEDICATIONS: Please see MAR, which are essentially the same medications that she has been on, except we have discontinued her Zosyn and antibiotics related to her urinary tract infection. ACTIVITY: No heavy lifting, basically as tolerated, but almost transfer and ambulation only. DIET: Please see MAR, but is essentially the fluid restriction with limited p.o. intake. Please see discharge instructions under diet comments for further details.
== END 2017-12-20 10:05 | DRG 394 ==
LOC: JP.ACU 12:35 → JP.MS 17:00 → JP.ICU 12-17 16:15
PROVIDERS: ADMIT Surgery; ATTEND Surgery
DX: K63.2 Fistula of intestine (principal); N39.0 Urinary tract infection, site not specified; E86.0 Dehydration; E87.6 Hypokalemia; D64.9 Anemia, unspecified; E86.1 Hypovolemia
CPT/HCPCS: 36415; 74177; 80053; 83605; 83735; 85027; J0696; J2270 ×2; J3480; J7030; J7040; J7050 ×2; Q9967; 80048; 97110-GP; 97161-GP; 97530-GP; A9270-GY; J1642; J2543

== ENCOUNTER 2019-03-10 12:21 | Emergency (ER) | payer MEDICARE, MEDICAID ==
[2019-03-10 12:28] VITALS: BP 136/78
--- NOTE | 2019-03-10 12:30 | EDM.PDOC ---
ED HPI GENERAL MEDICAL PROBLEM - General Chief Complaint: Back Pain or Injury Stated Complaint: MEDICAL VIA [place] Time Seen by Provider: 03/10/19 12:27 Source of Information: Reports: Patient, EMS, Old Records History Limitations: Reports: No Limitations - History of Present Illness INITIAL COMMENTS - FREE TEXT/NARRATIVE: 63 yo female with chronic back pain presents today via EMS from her home for the same. Was seen in urgent care on Friday and was given an IM injection of Toradol and was told that PT would be set up for her. She got no relief from this Toradol injection. To date she has not been called for the PT appt. Some pain down her left leg. Was on MS in the past for this, but this has been discontinued. Took Naproxen one dose at 8 am today and EMS gave an IM injection of Toradol en route. Vitals stable per EMS. Onset: Unknown/Unsure Duration: Chronic (? worse since Friday), Constant, Getting Worse Location: Reports: Back (mid to low back) Quality: Reports: Ache Severity: Severe Improves with: Reports: Medication Worsens with: Reports: Movement Context: Reports: Other (See HPI) Associated Symptoms: Reports: No Other Symptoms Treatments VIOLIN MAKER HAND: Reports: NSAIDS Back Pain Score (Numeric/FACES): 10 - Related Data Allergies Allergy/AdvReac Type Severity Reaction Status Date / Time shellfish derived Allergy Severe Anaphylactic Verified 03/10/19 12:33 Shock oxycodone HCl Allergy Hives Verified 03/10/19 12:33 [From OxyContin] Home Meds: Home Meds Omeprazole 40 mg PO DAILY 10/28/14 [History] traZODone 100 mg PO BEDTIME PRN 07/03/16 [History] Zolpidem [Ambien] 5 mg PO BEDTIME PRN 05/20/17 [History] Metoprolol Tartrate [Lopressor] 25 mg PO DAILY 11/04/17 [History] Mirtazapine [Remeron] 15 mg PO BEDTIME 11/04/17 [History] Acetaminophen/HYDROcodone [Port[place] 325-5 MG] 1 - 2 tab PO Q6H PRN #14 tab [Rx] Incruse 1 dose IH DAILY 03/10/19 [History] Naproxen 500 mg PO ASDIRECTED 03/10/19 [History] Pregabalin [Lyrica] 100 mg PO TID 03/10/19 [History] Sertraline [Zoloft] 50 mg PO DAILY 03/10/19 [History] Varenicline [Chantix] 1 mg PO DAILY 03/10/19 [History] Past Medical History HEENT History: Reports: Impaired Vision Other HEENT History: wears glasses Cardiovascular History: Reports: Blood Clots/VTE/DVT, High Cholesterol, Hypertension, [place], Prior Cardiac Arrest, SOB on Exertion, Syncope Respiratory History: Reports: COPD, PE, Pneumonia, Recurrent, SOB Gastrointestinal History: Reports: Chronic Diarrhea, Diverticulosis, GERD, Other (See Below) Other Gastrointestinal History: Diverticulitis, ischemic bowel; dysphagia. fistula of colon Genitourinary History: Reports: None EGG BREAKER History: Reports: Dysfunctional Uterine Bleeding, Other EGG BREAKER History: hysterectomy and c-sections X3 Musculoskeletal History: Reports: Back Pain, Chronic, RA Other Musculoskeletal History: DJD Neurological History: Reports: Concussion, CVA, Migraines, Vertigo Psychiatric History: Reports: Anxiety, Depression Endocrine/Metabolic History: Reports: Obesity/BMI 30+, Vitamin D Deficiency Hematologic History: Reports: Anticoagulation Therapy, Other (See Below) Other Hematologic History: parasitic toxoplasmosis Immunologic History: Reports: Immunosuppression Other Immunologic History: " Not very good" Immune system Dermatologic History: Reports: Eczema, Seborrheic Dermatitis Other Dermatologic History: tattoos on both arms - Infectious Disease History Infectious Disease History: Reports: Chicken Pox, Measles, Mumps Other Infectious Disease History: unable to obtain - Past Surgical History HEENT Surgical History: Reports: Naso-Sinus Surgery Cardiovascular Surgical History: Reports: Coronary Artery Stent, Percutaneous Transluminal Angioplasty GI Surgical History: Reports: Appendectomy, Cholecystectomy, Colon, Colonoscopy , Colostomy, EGD, Hernia, Abdominal, Other (See Below) Other GI Surgeries/Procedures: Take down of colostomy Female Surgical History: Reports: Breast Biopsy, Section, Hysterectomy, Salpingo-Oophorectomy Musculoskeletal Surgical History: Reports: Shoulder Replacement Dermatological Surgical History: Reports: Skin Graft Social & Family History - Family History Family Medical History: Noncontributory HEENT: Reports: None Cardiac: Reports: Heart Failure GI: Reports: Irritable Bowel Syndrome Neurological: Reports: CVA Endocrine/Metabolic: Reports: Hypothyroidism Dermatologic: Reports: Eczema - Caffeine Use Caffeine Use: Reports: None Other Caffeine Use: none since end of JUN 2017 ED ROS GENERAL - Review of Systems Review Of Systems: See Below Constitutional: Reports: No Symptoms HEENT: Reports: No Symptoms Respiratory: Reports: No Symptoms Cardiovascular: Reports: No Symptoms GI/Abdominal: Reports: No Symptoms, Other (chronic open abdominal wound) : Reports: No Symptoms Musculoskeletal: Reports: Back Pain Skin: Reports: No Symptoms Neurological: Reports: Numbness (mild L lateral thigh) ED EXAM,LOWER BACK PAIN/INJURY - Physical Exam Exam: See Below Exam Limited By: No Limitations General Appearance: Alert, WD/WN, No Apparent Distress Eye Exam: Bilateral Eye: Normal Inspection Ears: Normal External Exam, Normal Canal, Hearing Grossly Normal, Normal TMs Nose: Normal Inspection, Normal Mucosa, No Blood Throat/Mouth: Normal Inspection, Normal Lips, Normal Oropharynx, Normal Voice, No Airway Compromise Head: Atraumatic, Normocephalic Neck: Normal Inspection Respiratory/Chest: No Respiratory Distress, Lungs Clear, Normal Breath Sounds, No Accessory Muscle Use Cardiovascular: Regular Rate, Rhythm, No Edema GI/Abdominal: Normal Bowel Sounds, Soft, Non-Tender, No Distention, Other (open healing abdominal wound). No: Distended Back Exam: Normal Inspection. No: CVA Tenderness (R), CVA Tenderness (L) Extremities: Normal Inspection, Normal Range of Motion, Non-Tender, No Pedal Edema, Other (quadriceps bilaterally are atrophic) Neurological: Alert, Normal Mood/Affect, Normal Dorsiflexion, CN II-XII Intact, No Motor/Sensory Deficits, Oriented x 3 Psychiatric: Normal Affect, Normal Mood Skin Exam: Warm, Dry, Intact, Normal Color, No Rash Course - Vital Signs Text/Narrative:: Tried calling the clinic to form a plan for pain management with her primary only to find she is out all week. Last Recorded V/S: Last Vital Signs Temp 35.4 C 03/10/19 12:31 Pulse 72 03/10/19 12:31 Resp 16 03/10/19 12:31 BP 136/78 03/10/19 12:31 Pulse Ox 97 03/10/19 12:31 - Orders/Labs/Meds Meds: Medications Discontinued Medications Generic Name Dose Route Start Last Admin Trade Name Freq PRN Reason Stop Dose Admin Hydrocodone Bitart/Acetaminophen 1 tab 03/10/19 14:58 Port[place] 325-5 Mg PO 03/10/19 14:59 ONETIME ONE Gabapentin 300 mg 03/10/19 12:52 03/10/19 13:15 Neurontin PO 03/10/19 12:53 300 mg ONETIME ONE Administration Acetaminophen 1,000 mg/ Premix 100 mls @ 400 mls/hr 03/10/19 12:51 03/10/19 13:40 IV 03/10/19 13:05 400 mls/hr NOW ONE Administration Departure - Departure Time of Disposition: 15:10 Disposition: Home, Self-Care 01 Condition: Fair Clinical Impression: Acute exacerbation of chronic low back pain - Discharge Information *PRESCRIPTION DRUG MONITORING PROGRAM REVIEWED*: No *COPY OF PRESCRIPTION DRUG MONITORING REPORT IN PATIENT CLAUDINE: No Prescriptions: Acetaminophen/HYDROcodone [[place] 325-5 MG] 1 - 2 tab PO Q6H PRN #14 tab PRN Reason: Pain Instructions: Chronic Back Pain, [id number] Referrals: PCP,None [Primary Care Provider] - Forms: ED Department Discharge Additional Instructions: See your provider at your earliest opportunity. Take Port[place] over and above your regular medications as needed. Consider discussing a referral to a pain clinic. Follow through with PT as discussed this past Friday.
[2019-03-10] MEDS ORDERED: Acetaminophen 1,000 MG in Premix Bag 1 BAG IV ONE (12:51)
[2019-03-10] MEDS ORDERED: Gabapentin 300 MG Cap PO ONE (12:52)
[2019-03-10] MEDS ORDERED: Acetaminophen/HYDROcodone 325-5 MG Tab PO ONE (14:58)
== END 2019-03-10 15:11 | disposition home or self-care (01) ==
LOC: JP.ED 12:21
DX: G89.29 Other chronic pain (principal); M54.5 Low back pain; I10 Essential (primary) hypertension; E78.00 Pure hypercholesterolemia, unspecified; J44.9 Chronic obstructive pulmonary disease, unspecified; F41.9 Anxiety disorder, unspecified; F32.9 Major depressive disorder, single episode, unspecified; Z79.01 Long term (current) use of anticoagulants; Z79.899 Other long term (current) drug therapy; Z91.013 Allergy to seafood; Z88.6 Allergy status to analgesic agent
CPT/HCPCS: 96365; 99283; A9270; J0131

== ENCOUNTER 2019-05-11 06:18 | Day surgery (SDC) | payer MEDICARE, MEDICAID ==
[2019-05-11] MEDS ORDERED: Mineral Oil 10 ML Bottle ONE (06:39)
[2019-05-11] MEDS ORDERED: Lidocaine 1% with EPINEPHrine 1:100,000 50 ML MDV ONE (06:39)
[2019-05-11] MEDS ORDERED: Lidocaine/Prilocaine 2.5-2.5% Crm 5 GM Tube ONE (06:39)
[2019-05-11] MEDS ORDERED: Bacitracin Oint 28.35 GM Tube ONE (06:40)
[2019-05-11] MEDS ORDERED: fentaNYL 100 MCG/2 ML SDV ONE (07:19)
[2019-05-11] MEDS ORDERED: Propofol 200 MG/20 ML SDV ONE ×2 (07:20→08:52)
[2019-05-11] MEDS ORDERED: ceFAZolin 2 GM in Premix Bag 1 BAG IV ONE (08:00)
[2019-05-11] MEDS ORDERED: Sodium Chloride 0.9% 1,000 ML IV SCH (08:00)
[2019-05-11] MEDS ORDERED: Midazolam 1 MG/ML 2 ML SDV ONE (08:34)
[2019-05-11 10:58] VITALS: BP 99/63
[2019-05-11] MEDS ORDERED: Acetaminophen/HYDROcodone 325-5 MG Tab PO ONE (10:59)
--- NOTE | 2019-05-11 13:00 | OR ---
DATE OF PROCEDURE: 05/11/2019 SURGEON: Jhonatan Keyes MD PROCEDURES: 1. Surgical preparation of recipient site by excision of scar and subcutaneous tissue, abdomen, 3.3 x 5.5 cm (). 2. Split thickness skin graft trunk, size listed above (36922). COMPLICATIONS: None. FACILITY MAINTENANCE TECHNICIAN: None. ANESTHETIC: MAC/local. PREOPERATIVE DIAGNOSIS: Chronic nonhealing wound of the previous skin graft site. POSTOPERATIVE DIAGNOSIS: Chronic nonhealing wound of the previous skin graft site. RISKS: Risks, benefits, alternatives, limitations including, but not limited to infection, bleeding, and regrafting were explained to the patient, who wished to proceed. PROCEDURE IN DETAIL: The patient was placed in a supine position. The right thigh would be the donor site. The recipient site was addressed first. Using a dermatome set at 12,000th, this was mechanically debrided. This was then debrided further with a 15 blade. Mild petechiae. Bleeding was controlled with direct pressure. Electrocautery was used on 2 locations. After this was prepped, the donor site was then prepared next. This had been previously prepped and draped. Mineral oil was used to lubricate the skin. A 12,000th harvest would be used at approximately 3 cm. This was performed by applying the dermatome and then releasing after skin contact. This was a good harvest. This was placed on a carrier. The carrier was not dropped. The skin was not flipped. This was then meshed in into 1.5:1 ratio. This was then sutured with interrupted chromic sutures. After this was sutured every 1 cm, the chromic sutures were also used to do the internal rings, thus no area less than 1 cm did not have a suture. This was then dressed with Adaptic and covered in bacitracin. Secondary and tertiary dressings were used. The right thigh dressings were applied with a DuoDerm with nine 3 mm punches in it and then secondary and tertiary dressings. The patient tolerated the procedure well. Jhonatan Keyes MD /[id number]
== END 2019-05-11 11:20 | disposition home or self-care (01) ==
LOC: JP.SDS 06:18
PROVIDERS: ATTEND Surgery
DX: T81.89XA Other complications of procedures, not elsewhere classified, initial encounter (principal); I25.10 Atherosclerotic heart disease of native coronary artery without angina pectoris; I10 Essential (primary) hypertension; J44.9 Chronic obstructive pulmonary disease, unspecified; E78.5 Hyperlipidemia, unspecified; K21.9 Gastro-esophageal reflux disease without esophagitis; F32.9 Major depressive disorder, single episode, unspecified; F17.210 Nicotine dependence, cigarettes, uncomplicated; Z91.013 Allergy to seafood; Z88.5 Allergy status to narcotic agent; Z94.5 Skin transplant status
CPT/HCPCS: A9270-GY; J0690; J2250; J2704; J3010; J7030

== ENCOUNTER 2019-10-31 10:28 | Emergency (ER) | payer MEDICARE, MEDICAID ==
[2019-10-31 10:58] VITALS: BP 163/87; PULSE 100
--- NOTE | 2019-10-31 11:46 | EDM.PDOC ---
ED HPI GENERAL MEDICAL PROBLEM - General Chief Complaint: Skin Complaint Stated Complaint: REDDNESS AROUND COLOSTOMY POUCH SITE Time Seen by Provider: 10/31/19 11:37 Source of Information: Reports: Patient, Family, RN Notes Reviewed History Limitations: Reports: No Limitations - History of Present Illness INITIAL COMMENTS - FREE TEXT/NARRATIVE: 63-year-old female presents emergency department today complaint of pain around her ostomy site, she is noticed redness increasing over the last week or so and now she has skin breakdown has become painful no fevers Abdomen Pain Score (Numeric/FACES): 8 - Related Data Allergies Allergy/AdvReac Type Severity Reaction Status Date / Time shellfish derived Allergy Severe Anaphylactic Verified 08/03/19 13:45 Shock oxycodone HCl Allergy Hives Verified 08/03/19 13:45 [From OxyContin] Home Meds: Home Meds Omeprazole 40 mg PO DAILY 10/28/14 [History] traZODone 150 mg PO BEDTIME PRN 07/03/16 [History] Zolpidem [Ambien] 5 mg PO BEDTIME PRN 05/20/17 [History] Metoprolol Tartrate [Lopressor] 12.5 mg PO BID 11/04/17 [History] Mirtazapine [Remeron] 15 mg PO BEDTIME 11/04/17 [History] Incruse 1 dose IH DAILY 03/10/19 [History] Naproxen 500 mg PO ASDIRECTED 03/10/19 [History] Pregabalin [Lyrica] 100 mg PO BID 03/10/19 [History] Sertraline [Zoloft] 50 mg PO DAILY 03/10/19 [History] Aspirin 325 mg PO DAILY 05/07/19 [History] Bacitracin Zinc 1 applic TOP DAILY 05/07/19 [History] Diphenoxylate HCl/Atropine [Lomotil] 1 tab PO QID PRN 05/07/19 [History] Magnesium Oxide [Magnesium] 400 mg PO BID 05/07/19 [History] Nystatin 1 applic TOP TID 05/07/19 [History] Polyethylene Glycol 3350 1 gm PO DAILY PRN 05/07/19 [History] clonazePAM [Clonazepam] 1 mg PO BID PRN 05/07/19 [History] methocarbamoL [Methocarbamol] 750 mg PO BID PRN 05/07/19 [History] Past Medical History HEENT History: Reports: Impaired Vision Other HEENT History: wears glasses Cardiovascular History: Reports: Blood Clots/VTE/DVT, CAD, High Cholesterol, Hypertension, [place], Prior Cardiac Arrest, SOB on Exertion, Syncope Respiratory History: Reports: COPD, PE, Pneumonia, Recurrent, SOB Gastrointestinal History: Reports: Chronic Diarrhea, Diverticulosis, GERD, Other (See Below) Other Gastrointestinal History: Diverticulitis, ischemic bowel; dysphagia. fistula of colon - colostomy LEADLIGHTER History: Reports: Dysfunctional Uterine Bleeding, Other LEADLIGHTER History: hysterectomy and c-sections X3 Musculoskeletal History: Reports: Back Pain, Chronic, RA Other Musculoskeletal History: DJD Neurological History: Reports: Concussion, CVA, Migraines, Vertigo Psychiatric History: Reports: Anxiety, Depression Endocrine/Metabolic History: Reports: Obesity/BMI 30+, Vitamin D Deficiency Hematologic History: Reports: Anticoagulation Therapy, Other (See Below) Other Hematologic History: parasitic toxoplasmosis Immunologic History: Reports: Immunosuppression Other Immunologic History: " Not very good" Immune system Oncologic (Cancer) History: Reports: Other (See Below) Other Oncologic History: they are looking at her lungs and right breast right now. Dermatologic History: Reports: Eczema, Seborrheic Dermatitis Other Dermatologic History: tattoos on both arms - Infectious Disease History Infectious Disease History: Reports: Chicken Pox, Measles, Mumps Other Infectious Disease History: unable to obtain - Past Surgical History Head Surgeries/Procedures: Reports: None HEENT Surgical History: Reports: Naso-Sinus Surgery Cardiovascular Surgical History: Reports: Coronary Artery Stent, Percutaneous Transluminal Angioplasty Respiratory Surgical History: Reports: None GI Surgical History: Reports: Appendectomy, Cholecystectomy, Colon, Colonoscopy , Colostomy, EGD, Hernia, Abdominal, Other (See Below) Other GI Surgeries/Procedures: Take down of colostomy - had colostomy replaced Female Surgical History: Reports: Breast Biopsy, Section, Hysterectomy, Salpingo-Oophorectomy Neurological Surgical History: Reports: None Musculoskeletal Surgical History: Reports: Shoulder Replacement Dermatological Surgical History: Reports: Skin Graft Social & Family History - Family History Family Medical History: Noncontributory HEENT: Reports: None Cardiac: Reports: Heart Failure GI: Reports: Irritable Bowel Syndrome Neurological: Reports: CVA Endocrine/Metabolic: Reports: Hypothyroidism Dermatologic: Reports: Eczema - Tobacco Use Packs/Tins Daily: 0.1 - Caffeine Use Caffeine Use: Reports: Coffee Other Caffeine Use: none since end Jun 2017 - Recreational Drug Use Recreational Drug Use: No ED ROS GENERAL - Review of Systems Review Of Systems: See Below Constitutional: Denies: Fever, Chills HEENT: Reports: No Symptoms Respiratory: Reports: No Symptoms Cardiovascular: Reports: No Symptoms GI/Abdominal: Reports: No Symptoms Skin: Reports: Erythema, Wound, Change in Color ED EXAM, SKIN/RASH Exam: See Below Text/Narrative:: Examination of the integument system around the ostomy site it is erythematous and encompasses the right flank she does have denuded skin around the ostomy site there are a few remote satellite lesions appreciated as well, warm to the touch tender to the touch Exam Limited By: No Limitations General Appearance: Alert, WD/WN, No Apparent Distress Course - Vital Signs Last Recorded V/S: Last Vital Signs Temp 98.5 F 10/31/19 10:57 Pulse 100 10/31/19 10:57 Resp 20 10/31/19 10:57 BP 163/87 H 10/31/19 10:57 Pulse Ox 96 10/31/19 10:57 Departure - Departure Time of Disposition: 11:45 Disposition: Home, Self-Care 01 Condition: Fair Clinical Impression: Cellulitis Qualifiers: Site of cellulitis: trunk Site of cellulitis of trunk: abdominal wall Qualified Code(s): L03.311 - Cellulitis of abdominal wall - Discharge Information Instructions: Cellulitis, Adult Referrals: Nidia Rdz DO [Primary Care Provider] - Additional Instructions: Take full course of antibiotics, use a thick barrier ointment on with the consistency of peanut butter, recommend applying an antifungal cream prior to barrier ointment, follow-up with primary care 3 to 5 days if not better call return to the emergency department worsening of symptoms Sepsis Event Note - Evaluation Sepsis Screening Result: No Definite Risk - Focused Exam Vital Signs: Vital Signs Temp Pulse Resp BP Pulse Ox 10/31/19 10:57 98.5 F 100 20 163/87 H 96 Date Exam was Performed: 10/31/19 Time Exam was Performed: 11:42 - Assessment/Plan Plan: Assessment Acuity = acute Site and laterality = cellulitis around ostomy site abdominal wall Etiology = secondary bacterial cause Manifestations = none Location of injury = Home Lab values = none Plan Start antibiotics Keflex 500 mg 4 times daily x10 days, use a thick barrier ointment prefer to add an antifungal in the mix follow-up with primary care 3 to 5 days if no improvement This note was dictated using [employer] recognition software please call with any questions on syntax or grammar.
== END 2019-10-31 11:58 | disposition home or self-care (01) ==
LOC: JP.ED 10:28
DX: L03.311 Cellulitis of abdominal wall (principal); I25.2 Old myocardial infarction; I10 Essential (primary) hypertension; I25.10 Atherosclerotic heart disease of native coronary artery without angina pectoris; E66.9 Obesity, unspecified; J44.9 Chronic obstructive pulmonary disease, unspecified; K21.9 Gastro-esophageal reflux disease without esophagitis; F17.210 Nicotine dependence, cigarettes, uncomplicated; Z88.5 Allergy status to narcotic agent; Z91.013 Allergy to seafood; Z79.82 Long term (current) use of aspirin; Z86.73 Personal history of transient ischemic attack (TIA), and cerebral infarction without residual deficits; Z68.33 Body mass index [BMI] 33.0-33.9, adult; Z79.899 Other long term (current) drug therapy
CPT/HCPCS: 99282; 99283

== ENCOUNTER 2019-11-02 13:05 | Emergency (ER) | payer MEDICARE, MEDICAID ==
[2019-11-02 13:18] VITALS: BP 122/59; PULSE 86
[2019-11-02] MEDS ORDERED: fentaNYL 100 MCG/2 ML SDV IM ONE (13:32)
--- NOTE | 2019-11-02 13:35 | EDM.PDOC ---
ED HPI GENERAL MEDICAL PROBLEM - General Chief Complaint: Skin Complaint Stated Complaint: MEDICAL VIA TRI Time Seen by Provider: 11/02/19 13:19 Source of Information: Reports: Patient, Old Records, RN Notes Reviewed History Limitations: Reports: No Limitations - History of Present Illness INITIAL COMMENTS - FREE TEXT/NARRATIVE: 63-year-old female presents emergency department with a complaint of problems with her colostomy bag I had the opportunity to see her a couple days prior she has pretty significant skin breakdown around her appliance with denuded skin recommended thick emollient with Keflex she states she has been taking the medication but now has developed some fevers at home and increased pain, pain is been so severe she is not been able to place her appliance stool continues to spill over the skin Right Lower Abdomen Pain Score (Numeric/FACES): 9 - Related Data Allergies Allergy/AdvReac Type Severity Reaction Status Date / Time shellfish derived Allergy Severe Anaphylactic Verified 08/03/19 13:45 Shock oxycodone HCl Allergy Hives Verified 08/03/19 13:45 [From OxyContin] Home Meds: Home Meds Omeprazole 40 mg PO DAILY 10/28/14 [History] traZODone 150 mg PO BEDTIME PRN 07/03/16 [History] Zolpidem [Ambien] 5 mg PO BEDTIME PRN 05/20/17 [History] Metoprolol Tartrate [Lopressor] 12.5 mg PO BID 11/04/17 [History] Mirtazapine [Remeron] 15 mg PO BEDTIME 11/04/17 [History] Incruse 1 dose IH DAILY 03/10/19 [History] Naproxen 500 mg PO ASDIRECTED 03/10/19 [History] Pregabalin [Lyrica] 100 mg PO BID 03/10/19 [History] Sertraline [Zoloft] 50 mg PO DAILY 03/10/19 [History] Aspirin 325 mg PO DAILY 05/07/19 [History] Bacitracin Zinc 1 applic TOP DAILY 05/07/19 [History] Diphenoxylate HCl/Atropine [Lomotil] 1 tab PO QID PRN 05/07/19 [History] Magnesium Oxide [Magnesium] 400 mg PO BID 05/07/19 [History] Nystatin 1 applic TOP TID 05/07/19 [History] Polyethylene Glycol 3350 1 gm PO DAILY PRN 05/07/19 [History] clonazePAM [Clonazepam] 1 mg PO BID PRN 05/07/19 [History] methocarbamoL [Methocarbamol] 750 mg PO BID PRN 05/07/19 [History] Past Medical History HEENT History: Reports: Impaired Vision Other HEENT History: wears glasses Cardiovascular History: Reports: Blood Clots/VTE/DVT, CAD, High Cholesterol, Hypertension, MD, Prior Cardiac Arrest, SOB on Exertion, Syncope Respiratory History: Reports: COPD, PE, Pneumonia, Recurrent, SOB Gastrointestinal History: Reports: Chronic Diarrhea, Diverticulosis, GERD, Other (See Below) Other Gastrointestinal History: Diverticulitis, ischemic bowel; dysphagia. 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: Dysfunctional Uterine Bleeding, Other SPEED READING TEACHER History: hysterectomy and c-sections X3 Musculoskeletal History: Reports: Back Pain, Chronic, RA Other Musculoskeletal History: DJD Neurological History: Reports: Concussion, CVA, Migraines, Vertigo Psychiatric History: Reports: Anxiety, Depression Endocrine/Metabolic History: Reports: Obesity/BMI 30+, Vitamin D Deficiency Hematologic History: Reports: Anticoagulation Therapy, Other (See Below) Other Hematologic History: parasitic toxoplasmosis Immunologic History: Reports: Immunosuppression Other Immunologic History: " Not very good" Immune system Oncologic (Cancer) History: Reports: Other (See Below) Other Oncologic History: they are looking at her lungs and right breast right now. Dermatologic History: Reports: Eczema, Seborrheic Dermatitis Other Dermatologic History: tattoos on both arms - Infectious Disease History Infectious Disease History: Reports: Chicken Pox Other Infectious Disease History: unable to obtain - Past Surgical History HEENT Surgical History: Reports: Naso-Sinus Surgery Respiratory Surgical History: Reports: None Other GI Surgeries/Procedures: Take down of colostomy - had colostomy replaced Female Surgical History: Reports: Breast Biopsy, Section, Hysterectomy, Salpingo-Oophorectomy Neurological Surgical History: Reports: None Musculoskeletal Surgical History: Reports: Shoulder Replacement Dermatological Surgical History: Reports: Skin Graft Social & Family History - Family History Family Medical History: Noncontributory HEENT: Reports: None Cardiac: Reports: Heart Failure GI: Reports: Irritable Bowel Syndrome Neurological: Reports: CVA Endocrine/Metabolic: Reports: Hypothyroidism Dermatologic: Reports: Eczema - Tobacco Use Smoking Status *Q: Current Every Day Smoker Years of Tobacco use: 40 Packs/Tins Daily: 0.5 - Caffeine Use Caffeine Use: Reports: Coffee Other Caffeine Use: none since end of JUN 2017 - Recreational Drug Use Recreational Drug Use: No ED ROS GENERAL - Review of Systems Review Of Systems: See Below Constitutional: Reports: Fever HEENT: Reports: No Symptoms Respiratory: Reports: No Symptoms Cardiovascular: Reports: No Symptoms GI/Abdominal: Reports: Abdominal Pain Skin: Reports: Rash, Erythema, Wound, Change in Color ED EXAM, SKIN/RASH Exam: See Below Text/Narrative:: Examination of the ostomy site she does have denuded skin around this area it encompasses predominantly the right flank however I do feel the wound and erythema around the ostomy site has improved from 2 days prior Exam Limited By: No Limitations General Appearance: Alert, WD/WN, No Apparent Distress Respiratory/Chest: No Respiratory Distress Course - Vital Signs Last Recorded V/S: Last Vital Signs Temp 96.6 F L 11/02/19 13:25 Pulse 86 11/02/19 13:25 Resp 18 11/02/19 13:25 BP 122/59 L 11/02/19 13:25 Pulse Ox 97 11/02/19 13:25 - Orders/Labs/Meds Labs: Laboratory Tests 11/02/19 11/02/19 11/02/19 Range/Units 13:32 13:50 13:50 WBC 10.6 (4.5-11.0) K/uL RBC 4.66 (3.30-5.50) M/uL Hgb 12.8 (12.0-15.0) g/dL Hct 38.2 (36.0-48.0) % MCV 82 (80-98) fL MCH 28 (27-31) pg MCHC 34 (32-36) % Plt Count 266 (150-400) K/uL Neut % (Auto) 76 H (36-66) % Lymph % (Auto) 13 L (24-44) % [place] % (Auto) 7 H (2-6) % Eos % (Auto) 4 (2-4) % Baso % (Auto) 1 (0-1) % Sodium 134 L (140-148) mmol/L Potassium 3.7 (3.6-5.2) mmol/L Chloride 99 L (100-108) mmol/L Carbon Dioxide 27 (21-32) mmol/L Anion Gap 11.7 (5.0-14.0) mmol/L BUN 13 (7-18) mg/dL Creatinine 1.1 H (0.6-1.0) mg/dL Est Cr Clr Drug Dosing 47.72 mL/min Estimated GFR (MDRD) 50 L (>60) Glucose 116 H (74-106) mg/dL Lactic Acid 1.6 (0.4-2.0) mmol/L Calcium 8.7 (8.5-10.1) mg/dL Total Bilirubin 0.3 (0.2-1.0) mg/dL AST 19 (15-37) U/L ALT 18 (12-78) U/L Alkaline Phosphatase 187 H (46-116) U/L Total Protein 6.6 (6.4-8.2) g/dL Albumin 3.1 L (3.4-5.0) g/dL Globulin 3.5 (2.3-3.5) g/dL Albumin/Globulin Ratio 0.9 L (1.2-2.2) Meds: Medications Discontinued Medications Generic Name Dose Route Start Last Admin Trade Name Freq PRN Reason Stop Dose Admin Fentanyl 50 mcg 11/02/19 13:32 11/02/19 13:37 Sublimaze IM 11/02/19 13:33 50 mcg ONETIME ONE Administration Departure - Departure Time of Disposition: 14:47 Disposition: Home, Self-Care 01 Condition: Fair Clinical Impression: Cellulitis Qualifiers: Site of cellulitis: trunk Site of cellulitis of trunk: abdominal wall Qualified Code(s): L03.311 - Cellulitis of abdominal wall - Discharge Information Instructions: Cellulitis, Adult, [id number] Referrals: PCP,None [Primary Care Provider] - Forms: ED Department Discharge Additional Instructions: Please keep your follow-up appointment with your wound care team tomorrow afternoon at 230 Sepsis Event Note - Evaluation Sepsis Screening Result: No Definite Risk - Focused Exam Vital Signs: Vital Signs Temp Pulse Resp BP Pulse Ox 11/02/19 13:25 96.6 F L 86 18 122/59 L 97 11/02/19 13:17 96.6 F L 86 122/59 L 94 L Date Exam was Performed: 11/02/19 Time Exam was Performed: 14:46 - Assessment/Plan Plan: Assessment Acuity = acute Site and laterality = local cellulitis with skin breakdown at the ostomy site Etiology = probable bacterial cause Manifestations = none Location of injury = Home Lab values = CBC unremarkable creatinine elevated to 1.1 consistent with chronic renal failure stage G3 a albumin low at 3.1 consistent with hypoalbuminemia Plan I was able to contact the ostomy nurse team which came and evaluated they were able to find a workaround for her get an appliance back and she is set up for wound care tomorrow at 230, continue with antibiotics already initiated This note was dictated using [employer] voice recognition software please call with any questions on syntax or grammar.
== END 2019-11-02 15:40 | disposition home or self-care (01) ==
LOC: JP.ED 13:05
DX: L03.311 Cellulitis of abdominal wall (principal); F41.9 Anxiety disorder, unspecified; I25.10 Atherosclerotic heart disease of native coronary artery without angina pectoris; E78.00 Pure hypercholesterolemia, unspecified; I10 Essential (primary) hypertension; J44.9 Chronic obstructive pulmonary disease, unspecified; I25.2 Old myocardial infarction; K21.9 Gastro-esophageal reflux disease without esophagitis; F17.210 Nicotine dependence, cigarettes, uncomplicated; F32.9 Major depressive disorder, single episode, unspecified; E66.9 Obesity, unspecified; Z68.38 Body mass index [BMI] 38.0-38.9, adult; Z43.3 Encounter for attention to colostomy; Z88.5 Allergy status to narcotic agent; Z91.013 Allergy to seafood; Z79.899 Other long term (current) drug therapy; Z79.82 Long term (current) use of aspirin; Z86.73 Personal history of transient ischemic attack (TIA), and cerebral infarction without residual deficits
CPT/HCPCS: 36415; 80053; 83605; 85025; 96372; 99284; J3010; 99283

== ENCOUNTER 2020-01-21 14:51 | Emergency (ER) | payer MEDICARE, MEDICAID ==
[2020-01-21 15:02] VITALS: BP 108/39; PULSE 84
[2020-01-21] MEDS ORDERED: Meclizine 25 MG Tab PO ONE (15:02)
[2020-01-21] MEDS ORDERED: Acetaminophen/oxyCODONE 325-5 MG Tab PO STA (15:05)
[2020-01-21] MEDS ORDERED: Acetaminophen/HYDROcodone 325-5 MG Tab PO ONE (15:06)
--- NOTE | 2020-01-21 15:08 | EDM.PDOC ---
ED HPI GENERAL MEDICAL PROBLEM - General Chief Complaint: Chest Pain Stated Complaint: MEDICAL VIA TRI Time Seen by Provider: 01/21/20 14:55 Source of Information: Reports: Patient, EMS, Old Records History Limitations: Reports: Other (incomplete medical records, poor historian) - History of Present Illness INITIAL COMMENTS - FREE TEXT/NARRATIVE: 64 yo female arrives in the ER with sternal pain that began yesterday associated with some vertigo. Arrives via EMS. NTG was given x 2 without any changes per EMS and their EKG does not show any obvious ischemia. She was given Zofran also by them for reported nausea. She rates he pain at 8/10. Claims she is scheduled for coronary stenting in February and that she was dx with lung CA a year ago but is not yet on any treatment. There is no old record documentation for either or these claims. She did say that she quit smoking at Easter time of this year. Does not walk. Uses a wheelchair in her home. Has home care. Lives alone. Onset: Gradual Onset Date: 01/20/20 Duration: Day(s): (1+), Constant Location: Reports: Chest (sternal) Quality: Reports: Pressure Severity: Moderate Improves with: Reports: None Worsens with: Reports: Other (pressing on chest or deep breathing.) Context: Reports: Other (See HPI) Associated Symptoms: Reports: Nausea/Vomiting (no vomiting). 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 ) Chest Pain Score (Numeric/FACES): 7 - Related Data Allergies Allergy/AdvReac Type Severity Reaction Status Date / Time shellfish derived Allergy Severe Anaphylactic Verified 01/21/20 15:02 Shock oxycodone HCl Allergy Hives Verified 01/21/20 15:02 [From OxyContin] Home Meds: Home Meds Omeprazole 40 mg PO DAILY 10/28/14 [History] traZODone 150 mg PO BEDTIME PRN 07/03/16 [History] Zolpidem [Ambien] 5 mg PO BEDTIME PRN 05/20/17 [History] Metoprolol Tartrate [Lopressor] 12.5 mg PO BID 11/04/17 [History] Mirtazapine [Remeron] 15 mg PO BEDTIME 11/04/17 [History] Incruse 1 dose IH DAILY 03/10/19 [History] Naproxen 500 mg PO ASDIRECTED 03/10/19 [History] Sertraline [Zoloft] 50 mg PO DAILY 03/10/19 [History] Aspirin 325 mg PO DAILY 05/07/19 [History] Bacitracin Zinc 1 applic TOP DAILY 05/07/19 [History] Diphenoxylate HCl/Atropine [Lomotil] 1 tab PO QID PRN 05/07/19 [History] Magnesium Oxide [Magnesium] 400 mg PO BID 05/07/19 [History] Nystatin 1 applic TOP TID 05/07/19 [History] clonazePAM [Clonazepam] 1 mg PO BID PRN 05/07/19 [History] methocarbamoL [Methocarbamol] 750 mg PO BID PRN 05/07/19 [History] polyethylene glycoL 3350 [Polyethylene Glycol 3350] 1 gm PO DAILY PRN 05/07/19 [ History] Albuterol [Proventil Neb Soln] 2.5 mg IH Q4HR PRN 01/21/20 [History] Clopidogrel Bisulfate [Clopidogrel] 75 mg PO DAILY 01/21/20 [History] Hydrocodone/Acetaminophen [Shannon 5-325 Tablet] 1 each PO Q6HR 01/21/20 [History] atorvaSTATin Calcium [Atorvastatin Calcium] 80 mg PO BEDTIME 01/21/20 [History] Past Medical History HEENT History: Reports: Impaired Vision Other HEENT History: wears glasses Cardiovascular History: Reports: Blood Clots/VTE/DVT, CAD, High Cholesterol, Hypertension, [place], Prior Cardiac Arrest, SOB on Exertion, Syncope Respiratory History: Reports: COPD, PE, Pneumonia, Recurrent, SOB Gastrointestinal History: Reports: Chronic Diarrhea, Diverticulosis, GERD, Other (See Below) Other Gastrointestinal History: Diverticulitis, ischemic bowel; dysphagia. 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: hysterectomy and c-sections X3 Musculoskeletal History: Reports: Back Pain, Chronic, RA Other Musculoskeletal History: DJD Neurological History: Reports: Concussion, CVA, Migraines, Vertigo Psychiatric History: Reports: Anxiety, Depression Endocrine/Metabolic History: Reports: Obesity/BMI 30+, Vitamin D Deficiency Hematologic History: Reports: Anticoagulation Therapy, Other (See Below) Other Hematologic History: parasitic toxoplasmosis Immunologic History: Reports: Immunosuppression Other Immunologic History: " Not very good" Immune system Oncologic (Cancer) History: Reports: Other (See Below) Other Oncologic History: they are looking at her lungs and right breast right now. Dermatologic History: Reports: Eczema, Seborrheic Dermatitis Other Dermatologic History: tattoos on both arms - Infectious Disease History Infectious Disease History: Reports: Chicken Pox Other Infectious Disease History: unable to obtain - Past Surgical History HEENT Surgical History: Reports: Naso-Sinus Surgery Respiratory Surgical History: Reports: None Other GI Surgeries/Procedures: Take down of colostomy - had colostomy replaced Female Surgical History: Reports: Breast Biopsy, Section, Hysterectomy, Salpingo-Oophorectomy Neurological Surgical History: Reports: None Musculoskeletal Surgical History: Reports: Shoulder Replacement Dermatological Surgical History: Reports: Skin Graft Social & Family History - Family History Family Medical History: Noncontributory HEENT: Reports: None Cardiac: Reports: Heart Failure GI: Reports: Irritable Bowel Syndrome Neurological: Reports: CVA Endocrine/Metabolic: Reports: Hypothyroidism Dermatologic: Reports: Eczema - Caffeine Use Caffeine Use: Reports: Coffee Other Caffeine Use: none since end Jun 2017 ED ROS GENERAL - Review of Systems Review Of Systems: See Below Constitutional: Reports: No Symptoms HEENT: Reports: No Symptoms Respiratory: Reports: No Symptoms Cardiovascular: Reports: Chest Pain (sternal). Denies: Dyspnea on Exertion, Edema, Lightheadedness Endocrine: Reports: No Symptoms GI/Abdominal: Reports: Nausea. Denies: Abdominal Pain, Black Stool, Bloody Stool, Constipation, Diarrhea, Distension, Hematemesis, Hematochezia, Vomiting : Reports: No Symptoms Musculoskeletal: Reports: Other (sternal tenderness) Skin: Reports: No Symptoms Neurological: Reports: Other (vertigo, worse with looking to the side. ) Psychiatric: Reports: No Symptoms ED EXAM, GENERAL - Physical Exam Exam: See Below Exam Limited By: No Limitations General Appearance: Alert, WD/WN, No Apparent Distress, Obese Eye Exam: Bilateral Eye: Nystagmus (worse with R cain gaze), PERRL Ears: Normal External Exam, Normal Canal, Hearing Grossly Normal Ear Exam: Bilateral Ear: Auricle Normal, Canal Normal Nose: Normal Inspection, No Blood Throat/Mouth: Normal Inspection, Normal Lips, Normal Oropharynx, Normal Voice, No Airway Compromise Head: Atraumatic, Normocephalic Neck: Normal Inspection Respiratory/Chest: No Respiratory Distress, Lungs Clear, Normal Breath Sounds, No Accessory Muscle Use, Other (sternal tenderness present.). No: Chest Non- Tender Cardiovascular: Regular Rate, Rhythm, No Edema. No: Bradycardia, Tachycardia GI/Abdominal: Normal Bowel Sounds, Soft, Non-Tender, No Distention, Other (obese ). No: Distended, Guarding, Rigid, Rebound, Tender Extremities: Normal Inspection, Normal Range of Motion, Non-Tender, No Pedal Edema Neurological: Alert, Oriented, CN II-XII Intact, Normal Cognition, No Motor/ Sensory Deficits Psychiatric: Normal Affect, Normal Mood Skin Exam: Warm, Dry, Intact, Normal Color, No Rash EKG INTERPRETATION EKG Date: 01/21/20 Time: 13:55 Rhythm: NSR Rate (Beats/Min): 84 [place]: Normal P-Wave: Present QRS: Normal ST-T: Normal QT: Normal Comparison: No Change (EKG per EMS) Course - Vital Signs Last Recorded V/S: Last Vital Signs Temp 36.7 C 01/21/20 14:53 Pulse 84 01/21/20 14:53 Resp 20 01/21/20 14:53 BP 108/39 L 01/21/20 14:53 Pulse Ox 97 01/21/20 14:53 - Orders/Labs/Meds Orders: Active Orders 24 hr Category Date Time Status Cardiac Monitoring [RC] .As Directed Care 01/21/20 14:52 Active Labs: Laboratory Tests 01/21/20 01/21/20 01/21/20 Range/Units 15:17 15:17 15:17 WBC 8.7 (4.5-11.0) K/uL RBC 4.49 (3.30-5.50) M/uL Hgb 12.4 (12.0-15.0) g/dL Hct 37.4 (36.0-48.0) % MCV 83 (80-98) fL MCH 28 (27-31) pg MCHC 33 (32-36) % Plt Count 230 (150-400) K/uL Sodium 138 L (140-148) mmol/L Potassium 3.8 (3.6-5.2) mmol/L Chloride 103 (100-108) mmol/L Carbon Dioxide 26 (21-32) mmol/L Anion Gap 12.8 (5.0-14.0) mmol/L BUN 10 (7-18) mg/dL Creatinine 1.2 H (0.6-1.0) mg/dL Est Cr Clr Drug Dosing 43.18 mL/min Estimated GFR (MDRD) 45 L (>60) Glucose 172 H (74-106) mg/dL Calcium 8.9 (8.5-10.1) mg/dL Troponin I < 0.017 (0.000-0.056) ng/mL Meds: Medications Discontinued Medications Generic Name Dose Route Start Last Admin Trade Name Freq PRN Reason Stop Dose Admin Hydrocodone Bitart/Acetaminophen 1 tab 01/21/20 15:06 01/21/20 15:21 Shannon 325-5 Mg PO 01/21/20 15:07 1 tab ONETIME ONE Administration Meclizine HCl 25 mg 01/21/20 15:02 01/21/20 15:21 Antivert PO 01/21/20 15:03 25 mg ONETIME ONE Administration Oxycodone/Acetaminophen 1 tab 01/21/20 15:05 Percocet 325-5 Mg PO 01/21/20 15:06 ONETIME STA - Re-Assessments/Exams Free Text/Narrative Re-Assessment/Exam: 01/21/20 16:16 Is feeling less dizzy and her sternal pain is better after our meds. Departure - Departure Time of Disposition: 16:25 Disposition: Home, Self-Care 01 Condition: Fair Clinical Impression: Vertigo, Costochondritis Instructions: Costochondritis, Pavp-ot-Lomc, Dizziness, [id number] Referrals: PCP,None [Primary Care Provider] - Forms: ED Department Discharge Additional Instructions: Use Meclizine 25 mg every 6 hrs as needed for vertigo. Use either acetaminophen up to 1000 mg every 6 hrs OR Shannon 1 every 4-6 hrs as needed for pain relief. Recheck with your provider early next week if not a lot better. Sepsis Event Note - Evaluation Sepsis Screening Result: No Definite Risk - Focused Exam Vital Signs: Vital Signs Temp Pulse Resp BP Pulse Ox 01/21/20 14:53 36.7 C 84 20 108/39 L 97 Date Exam was Performed: 01/21/20 Time Exam was Performed: 16:16 - My Orders Last 24 Hours: My Active Orders 01/21/20 14:52 Cardiac Monitoring [RC] .As Directed - Assessment/Plan Last 24 Hours: My Active Orders 01/21/20 14:52 Cardiac Monitoring [RC] .As Directed
== END 2020-01-21 17:00 | disposition home or self-care (01) ==
LOC: JP.ED 14:51
DX: M94.0 Chondrocostal junction syndrome [Tietze] (principal); E78.00 Pure hypercholesterolemia, unspecified; I25.10 Atherosclerotic heart disease of native coronary artery without angina pectoris; I25.2 Old myocardial infarction; J44.9 Chronic obstructive pulmonary disease, unspecified; K21.9 Gastro-esophageal reflux disease without esophagitis; F41.9 Anxiety disorder, unspecified; F32.9 Major depressive disorder, single episode, unspecified; I10 Essential (primary) hypertension; E66.9 Obesity, unspecified; Z68.38 Body mass index [BMI] 38.0-38.9, adult; Z86.711 Personal history of pulmonary embolism; Z91.013 Allergy to seafood; Z88.5 Allergy status to narcotic agent; Z79.82 Long term (current) use of aspirin; Z79.02 Long term (current) use of antithrombotics/antiplatelets; Z79.899 Other long term (current) drug therapy
CPT/HCPCS: 36415; 80048; 84484; 85027; 99283; 99285; A9270

== ENCOUNTER 2020-05-11 06:17 | Day surgery (SDC) | payer MEDICARE, MEDICAID ==
[2020-05-11] MEDS ORDERED: Midazolam 1 MG/ML 2 ML SDV ONE (07:26)
[2020-05-11] MEDS ORDERED: Propofol 200 MG/20 ML SDV ONE (07:26)
[2020-05-11] MEDS ORDERED: fentaNYL 100 MCG/2 ML SDV ONE (07:26)
[2020-05-11] MEDS ORDERED: Sodium Chloride 0.9% 1,000 ML IV SCH (07:30)
[2020-05-11 08:44] VITALS: BP 125/71; PULSE 94
--- NOTE | 2020-05-11 12:54 | OR ---
DATE OF PROCEDURE: 05/11/2020 SURGEON: Jhonatan Keyes MD PROCEDURE: EGD. FINDINGS: 1. Mild gastritis (biopsied using cold biopsy forceps for evaluation for H. pylori). 2. Plaque-like area in the distal esophagus concerning for thrush or significant reflux disease. This did extend from the GE junction to approximately 6 cm proximal (biopsied multiple times using cold biopsy forceps in all 4 quadrants). COMPLICATIONS: None. 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 PREOPERATIVE DIAGNOSIS: Dysphagia. POSTOPERATIVE DIAGNOSIS: Dysphagia. RISKS: Risks, benefits, alternatives, and limitations including, but not limited to, infection, bleeding, and perforation were explained to the patient, who wished to proceed. PROCEDURE IN DETAIL: The patient was placed in the left lateral decubitus position. EGD scope was introduced and advanced atraumatically to the second part of the duodenum. No evidence of duodenitis or ulceration. Within the stomach itself, the patient had gastritis that was described as mild. No evidence of ulceration. Biopsies were performed as described above. On retroflex, no abnormalities. The GE junction was also evaluated and was biopsied in all 4 quadrants for the aforementioned reasons. No abnormal bleeding was noted after removal. The remainder of esophagus was normal. The patient tolerated the procedure well. Jhonatan Keyes MD /[id number]
== END 2020-05-11 09:09 | disposition home or self-care (01) ==
LOC: JP.SDS 06:17
PROVIDERS: ATTEND Surgery
DX: K29.50 Unspecified chronic gastritis without bleeding (principal); K22.10 Ulcer of esophagus without bleeding; J44.9 Chronic obstructive pulmonary disease, unspecified; F17.200 Nicotine dependence, unspecified, uncomplicated; I10 Essential (primary) hypertension; E78.5 Hyperlipidemia, unspecified; K21.9 Gastro-esophageal reflux disease without esophagitis; F32.9 Major depressive disorder, single episode, unspecified
CPT/HCPCS: 45380; 88305; 88312; J2250; J2704; J3010; J7030

== ENCOUNTER 2020-07-10 14:17 | Emergency (ER) | payer MEDICARE, MEDICAID ==
--- NOTE | 2020-07-10 14:41 | EDM.PDOC ---
ED HPI GENERAL MEDICAL PROBLEM - General Chief Complaint: General Stated Complaint: MEDICAL VIA [facility] Time Seen by Provider: 07/10/20 14:25 Source of Information: Reports: Patient, EMS History Limitations: Reports: No Limitations - History of Present Illness INITIAL COMMENTS - FREE TEXT/NARRATIVE: 64-year-old female brought in by EMS because she "hurts all over". She appears to be having slight increase in respiratory effort but she really does not complain of shortness of breath but does have some cough. Just mainly complains of hurting all over, no specific area of pain. Onset: Unknown/Unsure Associated Symptoms: Reports: Chest Pain, Malaise, Weakness. Denies: Fever/Chills, Shortness of Breath Generalized Pain Score (Numeric/FACES): 10 - Related Data Allergies Allergy/AdvReac Type Severity Reaction Status Date / Time shellfish derived Allergy Severe Anaphylactic Verified 07/12/20 13:31 Shock oxycodone HCl Allergy Hives Verified 07/12/20 13:31 [From OxyContin] Home Meds: Home Meds Omeprazole 40 mg PO DAILY 10/28/14 [History] traZODone 150 mg PO BEDTIME PRN 07/03/16 [History] Zolpidem [Ambien] 5 mg PO BEDTIME PRN 05/20/17 [History] Metoprolol Tartrate [Lopressor] 12.5 mg PO BID 11/04/17 [History] Mirtazapine [Remeron] 15 mg PO BEDTIME 11/04/17 [History] Incruse 1 dose IH DAILY 03/10/19 [History] Naproxen 500 mg PO ASDIRECTED 03/10/19 [History] Sertraline [Zoloft] 50 mg PO DAILY 03/10/19 [History] Aspirin 325 mg PO DAILY 05/07/19 [History] Bacitracin Zinc 1 applic TOP DAILY 05/07/19 [History] Diphenoxylate HCl/Atropine [Lomotil] 1 tab PO QID PRN 05/07/19 [History] Nystatin 1 applic TOP TID 05/07/19 [History] clonazePAM [Clonazepam] 1 mg PO BID PRN 05/07/19 [History] polyethylene glycoL 3350 [Polyethylene Glycol 3350] 1 gm PO DAILY PRN 05/07/19 [History] Albuterol [Proventil Neb Soln] 2.5 mg IH Q4HR PRN 01/21/20 [History] Clopidogrel Bisulfate [Clopidogrel] 75 mg PO DAILY 01/21/20 [History] Hydrocodone/Acetaminophen [[place] 5-325 Tablet] 1 each PO Q6HR 01/21/20 [History] atorvaSTATin Calcium [Atorvastatin Calcium] 80 mg PO BEDTIME 01/21/20 [History] ARIPiprazole [Abilify] 2.5 mg PO BEDTIME 05/08/20 [History] Fluticasone Propionate [Flonase Allergy Relief] 2 spray KAITLIN DAILY 05/08/20 [History] Pregabalin [Lyrica] 100 mg PO TID 05/08/20 [History] tiZANidine HCl [Zanaflex] 4 mg PO Q8HR PRN 05/08/20 [History] Montelukast Sodium [Singulair] 10 mg PO DAILY 07/12/20 [History] Past Medical History HEENT History: Reports: Impaired Vision Other HEENT History: wears glasses Cardiovascular History: Reports: Blood Clots/VTE/DVT, CAD, High Cholesterol, Hypertension, CO, Prior Cardiac Arrest, SOB on Exertion, Syncope Other Cardiovascular History: cat scan and mri of the heart Respiratory History: Reports: COPD, PE, Pneumonia, Recurrent, SOB Other Respiratory History: states she has lumg cancer Gastrointestinal History: Reports: Chronic Diarrhea, Diverticulosis, GERD, Other (See Below) Other Gastrointestinal History: Diverticulitis, ischemic bowel; dysphagia. 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: hysterectomy and c-sections X3 Musculoskeletal History: Reports: Back Pain, Chronic, RA Other Musculoskeletal History: DJD Neurological History: Reports: Concussion, CVA, Migraines, Vertigo Psychiatric History: Reports: Anxiety, Depression Endocrine/Metabolic History: Reports: Obesity/BMI 30+, Vitamin D Deficiency Hematologic History: Reports: Anticoagulation Therapy, Other (See Below) Other Hematologic History: parasitic toxoplasmosis Immunologic History: Reports: Immunosuppression Other Immunologic History: " Not very good" Immune system Oncologic (Cancer) History: Reports: Other (See Below) Other Oncologic History: they are looking at her lungs and right breast right now. Dermatologic History: Reports: Eczema, Seborrheic Dermatitis Other Dermatologic History: tattoos on both arms - Infectious Disease History Infectious Disease History: Reports: Chicken Pox Other Infectious Disease History: unable to obtain - Past Surgical History HEENT Surgical History: Reports: Naso-Sinus Surgery Respiratory Surgical History: Reports: None GI Surgical History: Reports: Cholecystectomy, Colonoscopy, EGD, Hernia, Abdominal Other GI Surgeries/Procedures: Take down of colostomy - had colostomy replaced Female Surgical History: Reports: Breast Biopsy, Section, Hysterectomy, Salpingo-Oophorectomy Neurological Surgical History: Reports: None Musculoskeletal Surgical History: Reports: Shoulder Replacement Dermatological Surgical History: Reports: Skin Graft Social & Family History - Family History Family Medical History: Noncontributory HEENT: Reports: None Cardiac: Reports: Heart Failure GI: Reports: Irritable Bowel Syndrome Neurological: Reports: CVA Endocrine/Metabolic: Reports: Hypothyroidism Dermatologic: Reports: Eczema - Tobacco Use Tobacco Use Status *Q: Never Tobacco User - Caffeine Use Caffeine Use: Reports: Coffee Other Caffeine Use: none since end Jun 2017 - Recreational Drug Use Recreational Drug Use: No ED ROS GENERAL - Review of Systems Review Of Systems: See Below Constitutional: Reports: Malaise, Decreased Appetite. Denies: Fever HEENT: Reports: No Symptoms Respiratory: Reports: Shortness of Breath GI/Abdominal: Reports: Abdominal Pain, Nausea. Denies: Vomiting Skin: Reports: Other (Itchy lesions and scattered excoriated scabs on her scalp and back, extremities) Neurological: Reports: Weakness. Denies: Headache ED EXAM, GENERAL - Physical Exam Exam: See Below Exam Limited By: No Limitations General Appearance: Alert, No Apparent Distress Eye Exam: Bilateral Eye: Normal Inspection Respiratory/Chest: No Respiratory Distress, Lungs Clear Cardiovascular: Regular Rate, Rhythm Course - Vital Signs Last Recorded V/S: Last Vital Signs Temp 98.6 F 07/10/20 14:21 Pulse 78 07/10/20 15:08 Resp 17 07/10/20 14:21 BP 120/61 07/10/20 15:08 Pulse Ox 94 L 07/10/20 15:08 - Orders/Labs/Meds Labs: Laboratory Tests 07/10/20 07/10/20 07/10/20 Range/Units 15:12 15:12 15:12 WBC 13.0 H (4.5-11.0) K/uL RBC 4.24 (3.30-5.50) M/uL Hgb 11.0 L (12.0-15.0) g/dL Hct 34.2 L (36.0-48.0) % MCV 81 (80-98) fL MCH 26 L (27-31) pg MCHC 32 (32-36) % Plt Count 423 H (150-400) K/uL Neut % (Auto) 83 H (36-66) % Lymph % (Auto) 9 L (24-44) % [place] % (Auto) 6 (2-6) % Eos % (Auto) 2 (2-4) % Baso % (Auto) 1 (0-1) % Sodium 132 L (140-148) mmol/L Potassium 4.3 (3.6-5.2) mmol/L Chloride 98 L (100-108) mmol/L Carbon Dioxide 25 (21-32) mmol/L Anion Gap 13.3 (5.0-14.0) mmol/L BUN 14 (7-18) mg/dL Creatinine 1.1 H (0.6-1.0) mg/dL Est Cr Clr Drug Dosing TNP Estimated GFR (MDRD) 50 L (>60) Glucose 123 H (74-106) mg/dL Lactic Acid 1.7 (0.4-2.0) mmol/L Calcium 10.6 H D (8.5-10.1) mg/dL Total Bilirubin 0.4 (0.2-1.0) mg/dL AST 22 (15-37) U/L ALT 14 (12-78) U/L Alkaline Phosphatase 237 H (46-116) U/L Total Protein 7.1 (6.4-8.2) g/dL Albumin 2.3 L (3.4-5.0) g/dL Globulin 4.8 H (2.3-3.5) g/dL Albumin/Globulin Ratio 0.5 L (1.2-2.2) Lipase 176 (73-393) U/L Meds: Medications Discontinued Medications Generic Name Dose Route Start Last Admin Trade Name Freq PRN Reason Stop Dose Admin Hydromorphone HCl 1 mg 07/10/20 16:06 07/10/20 16:21 Dilaudid IM 07/10/20 16:07 1 mg ONETIME ONE Administration - Re-Assessments/Exams Free Text/Narrative Re-Assessment/Exam: 07/10/20 15:55 CBC, CMP, lipase were obtained. A INFORMATION SERVICES MANAGER search was done and she was given 16 hydrocodone 4 days ago but this was for "physical therapy". I did discuss this with her primary provider. Labs returned generally reassuring, her white count was 13,000 and calcium was 10.6, all other labs were generally consistent with past readings. Chest x-ray was normal. Patient's only concern was getting "something for pain". She was given 1 mg of IM Dilaudid and will recheck with Dr. Rdz within the next 7 to 10 days for calcium recheck. She can return sooner if she develops increased shortness of breath or fever. Departure - Departure Time of Disposition: 16:44 Disposition: Home, Self-Care 01 Clinical Impression: Generalized pain, Weakness - Discharge Information Instructions: Pain Without a Known Cause Referrals: PCP,None [Primary Care Provider] - Forms: ED Department Discharge Care Plan Goals: Continue your current medications, and recheck with Dr. Rdz in the next 7 to 10 days. Return sooner if you are worsening such as difficulty breathing or persistent fever. Sepsis Event Note (ED) - Evaluation Sepsis Screening Result: No Definite Risk
[2020-07-10 15:09] VITALS: BP 120/61; PULSE 78
--- NOTE | 2020-07-10 15:19 | CR ---
CHEST: Portable 07/10/2020 at 3:00 PM CLINICAL HISTORY:Body pain and cough COMPARISON:CT 01/17/2020 FINDINGS: The heart size, pulmonary vascularity and hilar structures are normal. No infiltrate effusion or pneumothorax is seen. Study is somewhat limited due to positioning and patient's large body habitus. If clinically relevant upright PA and lateral chest would be helpful IMPRESSION: No acute cardiopulmonary process.
[2020-07-10] MEDS ORDERED: HYDROmorphone 1 MG/ML Syringe IM ONE (16:06)
== END 2020-07-10 16:45 | disposition home or self-care (01) ==
LOC: JP.ED 14:17
DX: R53.1 Weakness (principal); R52 Pain, unspecified; I10 Essential (primary) hypertension; I25.2 Old myocardial infarction; I25.10 Atherosclerotic heart disease of native coronary artery without angina pectoris; E78.00 Pure hypercholesterolemia, unspecified; J44.9 Chronic obstructive pulmonary disease, unspecified; K21.9 Gastro-esophageal reflux disease without esophagitis; E66.9 Obesity, unspecified; F41.9 Anxiety disorder, unspecified; F32.9 Major depressive disorder, single episode, unspecified; Z88.5 Allergy status to narcotic agent; Z91.013 Allergy to seafood; Z90.710 Acquired absence of both cervix and uterus; Z90.49 Acquired absence of other specified parts of digestive tract; Z79.02 Long term (current) use of antithrombotics/antiplatelets; Z79.82 Long term (current) use of aspirin; Z79.899 Other long term (current) drug therapy
CPT/HCPCS: 36415; 71045; 80053; 83605; 83690; 85025; 96372; 99285; J1170; 99283

== ENCOUNTER 2020-07-12 12:31 | Emergency (ER) | payer MEDICARE, MEDICAID ==
[2020-07-12] MEDS ORDERED: HYDROmorphone 0.5 MG/0.5 ML Syringe IM ONE (14:46)
--- NOTE | 2020-07-12 17:53 | EDM.PDOC ---
ED HPI GENERAL MEDICAL PROBLEM - General Chief Complaint: General Stated Complaint: DIZZY,HEADACHE Time Seen by Provider: 07/12/20 14:07 Source of Information: Reports: Patient, Old Records History Limitations: Reports: No Limitations - History of Present Illness INITIAL COMMENTS - FREE TEXT/NARRATIVE: Kell is a 64-year-old female brought in by [facility] for evaluation of a multitude of complaints including generalized pain related to her rheumatoid arthritis, cough, chest pain, back pain, nausea without vomiting, decreased appetite, malaise, headache, and development of decubital ulcers. The patient was seen and evaluated by Dr. Martínez on 07/10/2020 for the same constellation of symptoms and found to have a leukocytosis at 13.0 and a calcium of 10.6. At that time the patient was primarily looking for pain medicine and was discharged home with follow-up with her primary care provider, Nidia Rdz. Onset: Gradual Generalized Pain Score (Numeric/FACES): 9 - Related Data Allergies Allergy/AdvReac Type Severity Reaction Status Date / Time shellfish derived Allergy Severe Anaphylactic Verified 07/12/20 13:31 Shock oxycodone HCl Allergy Hives Verified 07/12/20 13:31 [From OxyContin] Home Meds: Home Meds Omeprazole 40 mg PO DAILY 10/28/14 [History] traZODone 150 mg PO BEDTIME PRN 07/03/16 [History] Zolpidem [Ambien] 5 mg PO BEDTIME PRN 05/20/17 [History] Metoprolol Tartrate [Lopressor] 12.5 mg PO BID 11/04/17 [History] Mirtazapine [Remeron] 15 mg PO BEDTIME 11/04/17 [History] Incruse 1 dose IH DAILY 03/10/19 [History] Naproxen 500 mg PO ASDIRECTED 03/10/19 [History] Sertraline [Zoloft] 50 mg PO DAILY 03/10/19 [History] Aspirin 325 mg PO DAILY 05/07/19 [History] Bacitracin Zinc 1 applic TOP DAILY 05/07/19 [History] Diphenoxylate HCl/Atropine [Lomotil] 1 tab PO QID PRN 05/07/19 [History] Nystatin 1 applic TOP TID 05/07/19 [History] clonazePAM [Clonazepam] 1 mg PO BID PRN 05/07/19 [History] polyethylene glycoL 3350 [Polyethylene Glycol 3350] 1 gm PO DAILY PRN 05/07/19 [History] Albuterol [Proventil Neb Soln] 2.5 mg IH Q4HR PRN 01/21/20 [History] Clopidogrel Bisulfate [Clopidogrel] 75 mg PO DAILY 01/21/20 [History] Hydrocodone/Acetaminophen [[place] 5-325 Tablet] 1 each PO Q6HR 01/21/20 [History] atorvaSTATin Calcium [Atorvastatin Calcium] 80 mg PO BEDTIME 01/21/20 [History] ARIPiprazole [Abilify] 2.5 mg PO BEDTIME 05/08/20 [History] Fluticasone Propionate [Flonase Allergy Relief] 2 spray KAITLIN DAILY 05/08/20 [History] Pregabalin [Lyrica] 100 mg PO TID 05/08/20 [History] tiZANidine HCl [Zanaflex] 4 mg PO Q8HR PRN 05/08/20 [History] Montelukast Sodium [Singulair] 10 mg PO DAILY 07/12/20 [History] Past Medical History HEENT History: Reports: Impaired Vision Other HEENT History: wears glasses Cardiovascular History: Reports: Blood Clots/VTE/DVT, CAD, High Cholesterol, Hypertension, CA, Prior Cardiac Arrest, SOB on Exertion, Syncope Other Cardiovascular History: cat scan and mri of the heart Respiratory History: Reports: COPD, PE, Pneumonia, Recurrent, SOB Other Respiratory History: states she has lumg cancer Gastrointestinal History: Reports: Chronic Diarrhea, Diverticulosis, GERD, Other (See Below) Other Gastrointestinal History: Diverticulitis, ischemic bowel; dysphagia. 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: Dysfunctional Uterine Bleeding, Other GLAUCOMA SPECIALIST History: hysterectomy and c-sections X3 Musculoskeletal History: Reports: Back Pain, Chronic, RA Other Musculoskeletal History: DJD Neurological History: Reports: Concussion, CVA, Migraines, Vertigo Psychiatric History: Reports: Anxiety, Depression Endocrine/Metabolic History: Reports: Obesity/BMI 30+, Vitamin D Deficiency Hematologic History: Reports: Anticoagulation Therapy, Other (See Below) Other Hematologic History: parasitic toxoplasmosis Immunologic History: Reports: Immunosuppression Other Immunologic History: " Not very good" Immune system Oncologic (Cancer) History: Reports: Other (See Below) Other Oncologic History: they are looking at her lungs and right breast right now. Dermatologic History: Reports: Eczema, Seborrheic Dermatitis Other Dermatologic History: tattoos on both arms - Infectious Disease History Infectious Disease History: Reports: Chicken Pox Other Infectious Disease History: unable to obtain - Past Surgical History HEENT Surgical History: Reports: Naso-Sinus Surgery Respiratory Surgical History: Reports: None GI Surgical History: Reports: Cholecystectomy, Colonoscopy, EGD, Hernia, Abdominal Other GI Surgeries/Procedures: Take down of colostomy - had colostomy replaced Female Surgical History: Reports: Breast Biopsy, Section, Hysterectomy, Salpingo-Oophorectomy Neurological Surgical History: Reports: None Musculoskeletal Surgical History: Reports: Shoulder Replacement Dermatological Surgical History: Reports: Skin Graft Social & Family History - Family History Family Medical History: Noncontributory HEENT: Reports: None Cardiac: Reports: Heart Failure GI: Reports: Irritable Bowel Syndrome Neurological: Reports: CVA Endocrine/Metabolic: Reports: Hypothyroidism Dermatologic: Reports: Eczema - Tobacco Use Tobacco Use Status *Q: Never Tobacco User - Caffeine Use Caffeine Use: Reports: Coffee Other Caffeine Use: none since end of JUN 2017 - Recreational Drug Use Recreational Drug Use: No ED ROS GENERAL - Review of Systems Review Of Systems: See Below Constitutional: Reports: Malaise, Fatigue HEENT: Reports: No Symptoms Respiratory: Reports: Shortness of Breath, Cough Cardiovascular: Reports: No Symptoms Endocrine: Reports: Fatigue GI/Abdominal: Reports: Decreased Appetite, Nausea : Reports: No Symptoms Musculoskeletal: Reports: Back Pain, Muscle Pain Skin: Reports: Other (Patient states that she has sacral skin breakdown) Neurological: Reports: Headache Psychiatric: Reports: Anxiety Hematologic/Lymphatic: Reports: No Symptoms Immunologic: Reports: No Symptoms ED EXAM, GENERAL - Physical Exam Exam: See Below Exam Limited By: No Limitations General Appearance: Alert, Mild Distress Eye Exam: Bilateral Eye: PERRL Head: Atraumatic, Normocephalic Neck: Normal Inspection, Supple Respiratory/Chest: No Respiratory Distress, Lungs Clear, Normal Breath Sounds, No Accessory Muscle Use, Chest Non-Tender Cardiovascular: Normal Peripheral Pulses, Regular Rate, Rhythm Peripheral Pulses: 2+: Radial (L), Radial (R) GI/Abdominal: Normal Bowel Sounds, Soft, Non-Tender, No Distention, Other (Her ostomy bag is leaking.) Back Exam: Normal Inspection Extremities: Normal Inspection Neurological: Alert, Oriented Psychiatric: Anxious, Tearful Lymphatic: No Adenopathy Course - Vital Signs Last Recorded V/S: Last Vital Signs Temp 36.4 C 07/12/20 13:29 Pulse 103 H 07/12/20 18:50 Resp 20 07/12/20 15:30 BP 104/70 07/12/20 18:50 Pulse Ox 92 L 07/12/20 15:30 - Orders/Labs/Meds Orders: Active Orders 24 hr Category Date Time Status Chest 1V Frontal [CR] Stat Exams 07/12/20 17:00 Taken Sodium Chloride 0.9% [Saline Flush] Med 07/12/20 18:21 Active 10 ml FLUSH ASDIRECTED PRN cefTRIAXone [Rocephin] 1 gm Med 07/12/20 20:42 Ordered Sodium Chloride 0.9% [Normal Saline] 50 ml IV ONETIME Saline Lock Insert [OM.PC] Routine Oth 07/12/20 18:21 Ordered Medication Orders Ceftriaxone Sodium 1 gm/ (Sodium Chloride) 50 mls @ 100 mls/hr IV ONETIME ONE Stop: 07/12/20 21:11 Sodium Chloride (Saline Flush) 10 ml FLUSH ASDIRECTED PRN PRN Reason: Keep Vein Open Labs: Laboratory Tests 07/12/20 07/12/20 07/12/20 Range/Units 14:46 14:46 17:07 WBC 14.5 H (4.5-11.0) K/uL RBC 4.19 (3.30-5.50) M/uL Hgb 11.2 L (12.0-15.0) g/dL Hct 33.6 L (36.0-48.0) % MCV 80 (80-98) fL MCH 27 (27-31) pg MCHC 33 (32-36) % Plt Count 373 (150-400) K/uL Neut % (Auto) 87 H (36-66) % Lymph % (Auto) 8 L (24-44) % [place] % (Auto) 5 (2-6) % Eos % (Auto) 1 L (2-4) % Baso % (Auto) 0 (0-1) % ESR 114 H (0-25) mm/hr Sodium 131 L (140-148) mmol/L Potassium 4.2 (3.6-5.2) mmol/L Chloride 98 L (100-108) mmol/L Carbon Dioxide 23 (21-32) mmol/L Anion Gap 14.2 H (5.0-14.0) mmol/L BUN 13 (7-18) mg/dL Creatinine 1.1 H (0.6-1.0) mg/dL Est Cr Clr Drug Dosing 43.30 mL/min Estimated GFR (MDRD) 50 L (>60) Glucose 152 H (74-106) mg/dL Calcium 11.0 H (8.5-10.1) mg/dL Total Bilirubin 0.3 (0.2-1.0) mg/dL AST 20 (15-37) U/L ALT 15 (12-78) U/L Alkaline Phosphatase 228 H (46-116) U/L Troponin I 0.049 (0.000-0.056) ng/mL C-Reactive Protein 12.82 H (0.0-0.3) mg/dL Total Protein 7.0 (6.4-8.2) g/dL Albumin 2.3 L (3.4-5.0) g/dL Globulin 4.7 H (2.3-3.5) g/dL Albumin/Globulin Ratio 0.5 L (1.2-2.2) Urine Color (YELLOW) Urine Appearance (CLEAR) Urine pH (5.0-8.0) Ur Specific [place] (1.008-1.030) Urine Protein (NEGATIVE) mg/dL Urine Glucose (UA) (NEGATIVE) mg/dL Urine Ketones (NEGATIVE) mg/dL Urine Occult Blood (NEGATIVE) Urine Nitrite (NEGATIVE) Urine Bilirubin (NEGATIVE) Urine Urobilinogen (0.2-1.0) EU/dL Ur Leukocyte Esterase (NEGATIVE) Urine RBC (0-5) Urine WBC (0-5) Ur Epithelial Cells Urine Bacteria SARS CoV-2 RNA Rapid ZEE Negative 07/12/20 Range/Units 20:25 WBC (4.5-11.0) K/uL RBC (3.30-5.50) M/uL Hgb (12.0-15.0) g/dL Hct (36.0-48.0) % MCV (80-98) fL MCH (27-31) pg MCHC (32-36) % Plt Count (150-400) K/uL Neut % (Auto) (36-66) % Lymph % (Auto) (24-44) % [place] % (Auto) (2-6) % Eos % (Auto) (2-4) % Baso % (Auto) (0-1) % ESR (0-25) mm/hr Sodium (140-148) mmol/L Potassium (3.6-5.2) mmol/L Chloride (100-108) mmol/L Carbon Dioxide (21-32) mmol/L Anion Gap (5.0-14.0) mmol/L BUN (7-18) mg/dL Creatinine (0.6-1.0) mg/dL Est Cr Clr Drug Dosing mL/min Estimated GFR (MDRD) (>60) Glucose (74-106) mg/dL Calcium (8.5-10.1) mg/dL Total Bilirubin (0.2-1.0) mg/dL AST (15-37) U/L ALT (12-78) U/L Alkaline Phosphatase (46-116) U/L Troponin I (0.000-0.056) ng/mL C-Reactive Protein (0.0-0.3) mg/dL Total Protein (6.4-8.2) g/dL Albumin (3.4-5.0) g/dL Globulin (2.3-3.5) g/dL Albumin/Globulin Ratio (1.2-2.2) Urine Color Yellow (YELLOW) Urine Appearance Slightly cloudy A (CLEAR) Urine pH 5.0 (5.0-8.0) Ur Specific [place] 1.020 (1.008-1.030) Urine Protein Negative (NEGATIVE) mg/dL Urine Glucose (UA) Negative (NEGATIVE) mg/dL Urine Ketones Negative (NEGATIVE) mg/dL Urine Occult Blood Trace-intact H (NEGATIVE) Urine Nitrite Positive H (NEGATIVE) Urine Bilirubin Negative (NEGATIVE) Urine Urobilinogen 0.2 (0.2-1.0) EU/dL Ur Leukocyte Esterase Trace H (NEGATIVE) Urine RBC 0-5 (0-5) Urine WBC 20-30 H (0-5) Ur Epithelial Cells Not seen Urine Bacteria Many SARS CoV-2 RNA Rapid ZEE Meds: Medications Generic Name Dose Route Start Last Admin Trade Name Freq PRN Reason Stop Dose Admin Ceftriaxone Sodium 1 gm/ 50 mls @ 100 mls/hr 07/12/20 20:42 Sodium Chloride IV 07/12/20 21:11 ONETIME ONE Sodium Chloride 10 ml 07/12/20 18:21 Saline Flush FLUSH ASDIRECTED PRN Keep Vein Open Discontinued Medications Generic Name Dose Route Start Last Admin Trade Name Freq PRN Reason Stop Dose Admin Hydromorphone HCl 0.5 mg 07/12/20 14:46 07/12/20 15:26 Dilaudid IM 07/12/20 14:47 0.5 mg ONETIME ONE Administration Hydromorphone HCl 1 mg 07/12/20 18:13 07/12/20 18:32 Dilaudid IM 07/12/20 18:14 1 mg ONETIME ONE Administration Sodium Chloride 1,000 mls @ 999 mls/hr 07/12/20 18:18 07/12/20 18:51 Normal Saline IV 07/12/20 19:18 999 mls/hr .BOLUS ONE Administration Departure - Departure Time of Disposition: 19:35 Disposition: DC/Tfer to Other Condition: Fair Clinical Impression: Polyarthralgia, Leukocytosis, Headache, Malaise and fatigue, Generalized pain, Weakness, At risk of decubitus ulcer, Urinary tract infection in female - Discharge Information *PRESCRIPTION DRUG MONITORING PROGRAM REVIEWED*: Not Applicable *COPY OF PRESCRIPTION DRUG MONITORING REPORT IN PATIENT CLAUDINE: Not Applicable Referrals: Nidia Rdz DO [Primary Care Provider] - Forms: ED Department Discharge Care Plan Goals: I discussed the case with Dr. Jung from the ED at [facility] in [place] who accepts the patient in transfer for admission there. We are currently on red bed status with no beds available at [facility]. Patient is in agreement with this plan. Sepsis Event Note (ED) - Evaluation Sepsis Screening Result: No Definite Risk - Focused Exam Vital Signs: Vital Signs Temp Pulse Resp BP Pulse Ox 07/12/20 18:50 103 H 104/70 07/12/20 17:05 91 124/71 07/12/20 15:30 92 20 123/69 92 L 07/12/20 13:29 36.4 C 97 20 116/63 93 L 07/12/20 13:19 36.4 C 97 20 116/63 93 L - Problem List & Annotations (1) Generalized pain SNOMED Code(s): 33662496 Code(s): R52 - PAIN, UNSPECIFIED Status: Chronic Priority: Medium Current Visit: Yes (2) Weakness SNOMED Code(s): 22575949 Code(s): R53.1 - WEAKNESS Status: Chronic Priority: Medium Current Visit: Yes (3) At risk of decubitus ulcer SNOMED Code(s): 870350082 Code(s): Z91.89 - OTH PERSONAL RISK FACTORS, NOT ELSEWHERE CLASSIFIED Status: Chronic Priority: Medium Current Visit: Yes (4) Headache SNOMED Code(s): 34431939 Code(s): R51.9 - HEADACHE, UNSPECIFIED Status: Acute Priority: Medium Current Visit: Yes Qualifiers: Headache type: tension-type Headache chronicity pattern: acute headache Intractability: not intractable Qualified Code(s): G44.209 - Tension-type headache, unspecified, not intractable (5) Leukocytosis SNOMED Code(s): 293490978, 522723171 Code(s): D72.829 - ELEVATED WHITE BLOOD CELL COUNT, UNSPECIFIED Status: Acute Priority: Medium Current Visit: Yes Qualifiers: Leukocytosis type: leukemoid reaction Qualified Code(s): D72.823 - Leukemoid reaction (6) Malaise and fatigue SNOMED Code(s): 842011722 Code(s): R53.81 - OTHER MALAISE; R53.83 - OTHER FATIGUE Status: Chronic Priority: Medium Current Visit: Yes (7) Polyarthralgia Status: Acute Priority: Medium Current Visit: Yes (8) Urinary tract infection in female SNOMED Code(s): 47543512, 364839198 Code(s): N39.0 - URINARY TRACT INFECTION, SITE NOT SPECIFIED Status: Acute Priority: Medium Current Visit: Yes - Problem List Review Problem List Initiated/Reviewed/Updated: Yes - My Orders Last 24 Hours: My Active Orders 07/12/20 17:00 Chest 1V Frontal [CR] Stat 07/12/20 18:21 Sodium Chloride 0.9% [Saline Flush] 10 ml FLUSH ASDIRECTED PRN Saline Lock Insert [OM.PC] Routine 07/12/20 20:42 cefTRIAXone [Rocephin] 1 gm Sodium Chloride 0.9% [Normal Saline] 50 ml IV ONETIME - Assessment/Plan Last 24 Hours: My Active Orders 07/12/20 17:00 Chest 1V Frontal [CR] Stat 07/12/20 18:21 Sodium Chloride 0.9% [Saline Flush] 10 ml FLUSH ASDIRECTED PRN Saline Lock Insert [OM.PC] Routine 07/12/20 20:42 cefTRIAXone [Rocephin] 1 gm Sodium Chloride 0.9% [Normal Saline] 50 ml IV ONETIME Plan: There are currently no beds available to admit the patient here. She has a low- grade fever, leukemoid reaction, generalized arthralgias, headache, cough, and shortness of breath. I recommend admission for observation. As there are no beds available here I discussed the case with Dr. Jung from the ED at [facility] in [place] who accepts the patient in transfer for admission there. We will arrange for transfer of the patient via EMS.
[2020-07-12] MEDS ORDERED: HYDROmorphone 1 MG/ML Syringe IM ONE (18:13)
[2020-07-12] MEDS ORDERED: Sodium Chloride 0.9% 1,000 ML IV ONE (18:18)
[2020-07-12] MEDS ORDERED: Sodium Chloride 0.9% 10 ML Syringe FLUSH PRN (18:21)
[2020-07-12] MEDS ORDERED: cefTRIAXone 1 GM in Sodium Chloride 0.9% 50 ML IV ONE (20:42)
[2020-07-12] MEDS ORDERED: Cyclobenzaprine 10 MG Tab PO ONE (20:55)
[2020-07-12 21:31] VITALS: BP 103/73; PULSE 116
--- NOTE | 2020-07-13 09:21 | CR ---
CHEST: Portable 07/12/2020 at 5:50 PM CLINICAL HISTORY:Dyspnea COMPARISON:07/10/2020 FINDINGS: The heart size, pulmonary vascularity and hilar structures are normal. No infiltrate effusion or pneumothorax is seen. Lung markings are exaggerated by patient's large body habitus. IMPRESSION: No acute cardiopulmonary process or significant change from prior study.
== END 2020-07-12 22:14 | disposition other institution (70) ==
LOC: JP.ED 12:31
DX: N39.0 Urinary tract infection, site not specified (principal); L89.90 Pressure ulcer of unspecified site, unspecified stage; D72.829 Elevated white blood cell count, unspecified; R53.83 Other fatigue; M25.50 Pain in unspecified joint; I25.10 Atherosclerotic heart disease of native coronary artery without angina pectoris; E78.00 Pure hypercholesterolemia, unspecified; I10 Essential (primary) hypertension; I25.2 Old myocardial infarction; J44.9 Chronic obstructive pulmonary disease, unspecified; K21.9 Gastro-esophageal reflux disease without esophagitis; F41.9 Anxiety disorder, unspecified; F32.9 Major depressive disorder, single episode, unspecified; E66.9 Obesity, unspecified; Z68.31 Body mass index [BMI] 31.0-31.9, adult; Z88.5 Allergy status to narcotic agent; Z91.013 Allergy to seafood; Z79.899 Other long term (current) drug therapy; Z79.82 Long term (current) use of aspirin; Z79.02 Long term (current) use of antithrombotics/antiplatelets; Z86.718 Personal history of other venous thrombosis and embolism; Z86.711 Personal history of pulmonary embolism
CPT/HCPCS: 36415; 71045; 80053; 81001; 84484; 85025; 85651; 86140; 96365; 96372; 99285; A9270; J0696; J1170; J7030; J7050; U0002